=== PATIENT | male | born 1940 | race Caucasian/White ===

== ENCOUNTER → 2019-02-17 | Outpatient (CLI) | payer MEDICARE, SELFPAY | PROVIDERS: PCP Emergency Medicine; Visit Provider Emergency Medicine | DX: E78.2 Mixed hyperlipidemia (principal); Z12.5 Encounter for screening for malignant neoplasm of prostate | CPT/HCPCS: 36415; 80053; 80061; 84153; G0103 ==

== ENCOUNTER 2021-05-13 07:49 | Emergency (ER) | payer MEDICARE, SELFPAY ==
[2021-05-13] VITALS (37 sets, daily range): BP systolic 121–161; BP diastolic 87–133; PULSE 54–105; RESP 11–25; TEMP 36.9; O2SAT 83–99
--- NOTE | 2021-05-13 08:05 | ED.GIBLEED ---
HPI - GI Bleed General Chief complaint: GI Bleed Stated complaint: RECTAL BLEED Time Seen by Provider: 05/13/21 08:00 Source: patient Mode of arrival: ambulatory Limitations: no limitations History of Present Illness HPI Narrative: Patient is an 80-year-old male complaining of bright red blood in his stool, especially when he wipes, that started yesterday. Patient states that he had a similar episode 10 to 12 years ago and was diagnosed with hemorrhoids and ulcers . Patient denies any abdominal pain, nausea, vomiting hematemesis, hemoptysis, nausea, vomiting, diarrhea, fever or chills. Related Data Allergies Allergy/AdvReac Type Severity Reaction Status Date / Time No Known Allergies Allergy Verified 03/24/21 09:31 Review of Systems Review of Systems: All systems reviewed & are unremarkable except as noted in HPI and below Constitutional: Constitutional: Denies body ache(s), Denies chills, Denies excessive sweating, Denies fatigue, Denies fever(s), Denies headache(s), Denies lethargy, Denies malaise, Denies weakness and Denies weight loss Eyes: Eyes: Denies blurry vision, Denies change in vision and Denies loss of vision ENT: Denies dizziness, Denies ear discharge, Denies headache(s), Denies lip swelling, Denies epistaxis, Denies nasal congestion, Denies neck pain, Denies throat swelling and Denies tongue swelling Cardiovascular: Cardiovascular: Denies chest pain, Denies chest pain at rest, Denies chest pain with activity, Denies diaphoresis, Denies rapid heart rate, Denies edema, Denies irregular heart rhythm, Denies lightheadedness, Denies palpitations, Denies dyspnea and Denies dyspnea on exertion Respiratory: Respiratory: Denies chest congestion, Denies cough, Denies hemoptysis, Denies dyspnea and Denies dyspnea on exertion Gastrointestinal: Gastrointestinal: Denies abdominal pain, Denies melena, Denies diarrhea, Denies nausea, Denies vomiting and Denies hematemesis Musculoskeletal: Musculoskeletal: Denies abnormal gait, Denies deformity, Denies joint swelling, Denies limited range of motion, Denies neck pain and Denies numbness Neurologic: Denies Abnormal speech present, Denies abnormal gait, Denies confusion, Denies dizziness, Denies headache(s), Denies focal weakness, Denies loss of vision, Denies numbness, Denies Other visual disturbances, Denies Sensory deficit (Neuro) and Denies weakness Psychiatric: Psychiatric: Denies confusion, Denies depression, Denies auditory hallucinations, Denies homicidal ideation and Denies suicidal ideation Endocrine: Endocrine: Denies cold intolerance, Denies excessive sweating, Denies fatigue, Denies heat intolerance and Denies palpitations Hematologic/Lymphatic: Hematologic/Lymphatic: Denies easy bleeding and Denies easy bruising Allergic/Immunologic: Allergic/Immunologic: Denies lip swelling, Denies throat swelling and Denies tongue swelling PMFSH Past Medical History Medical History (Updated 05/13/21 @ 12:23 by Justus Donovan MD) DJD (degenerative joint disease) Elevated lipids Hypertension Insomnia Family History Family History Father Family history of liver disease Diabetes mellitus Family history of kidney disease Mother Family history of diabetes mellitus in first degree relative Diabetes mellitus Family history of renal failure Other Family history of gout Social History Social History Smoking status: Former smoker Smoking end date: 05/16/75 Alcohol intake: current Exam Const: General: cooperative, healthy appearing, comfortable, no acute distress, well developed, alert and awake; No confusion Orientation/consciousness: oriented to person, oriented to place, oriented to time, patient oriented x3 and No confusion Limitations: no limitations HENMT: Head: normal to inspection, normocephalic and atraumatic Ears: hearing grossly normal
[2021-05-13 08:18] LABS: Basophils Absolute Auto 0.1 K/mm3 (0.0-0.1); Basophils Percent Auto 0.7 % (0.2-1.2); Eosinophils Absolute Auto 0.1 K/mm3 (0-0.3); Eosinophils Percent Auto 0.8 % (0-4.4); Hematocrit 43.1 % (42.0-52.0); Hemoglobin 13.7 g/dL (14.0-18.0); Immature Granulocyte Absolute 0.02 K/mm3 (0.00-0.031); Immature Granulocyte Percent A 0.3 % (0-0.5); Lymphocytes Absolute Auto 1.22 K/mm3 (0.9-3.2); Lymphocytes Percent Auto 15.9 % (18.3-44.2); Mean Corpuscular HGB Conc 31.8 g/dl (32-36); Mean Corpuscular Hemoglobin 29.9 pg (26-34); Mean Corpuscular Volume 94.1 fl (80-100); Mean Platelet Volume 9.4 fl (7.4-10.4); Monocytes Absolute Auto 0.8 K/mm3 (0.1-0.6); Monocytes Percent Auto 10.4 % (2.6-8.5); Neutrophils Absolute Auto 5.5 K/mm3 (1.3-6.7); Neutrophils Percent Auto 71.9 % (45.5-73.1); Platelet Count Result 199 k/mm3 (150-375); Red Blood Count 4.58 M/mm3 (4.6-6.20); Red Cell Distribution Width 13.3 % (11.5-14.5); White Blood Count 7.7 K/mm3 (4.5-10.0)
[2021-05-13 08:31] LABS: Alanine Aminotransferase 23 U/L (4-50); Albumin Level 4.3 g/dL (3.5-5.1); Alkaline Phosphatase 73 U/L (38-126); Anion Gap 12 mmol/L (8-16); Aspartate Amino Transferase 29 U/L (17-59); Blood Urea Nitrogen 20 mg/dL (9-20); Calcium 8.8 mg/dL (8.4-10.2); Carbon Dioxide 25 mmol/L (22-30); Chloride 101 mmol/L (98-107); Estimated CRCL calculation 48 ml/min; Estimated Glomerular Filt Rate 39; Glucose 112 mg/dL (65-110); Potassium 4.4 mmol/L (3.4-5.0); Sodium 138 mmol/L (137-145)
[2021-05-13 08:41] LABS: Prothrombin Time 13.5 Seconds (11.1-14.7)
[2021-05-13 08:42] LABS: Partial Thromboplastin Time 31.5 SECONDS (22.3-36.8)
[2021-05-13] MEDS: LACTATED RINGERS 1,000 ML 999 ML IV CONT (09:48)
== END 2021-05-13 12:50 | disposition home or self-care (01) ==
PROVIDERS: Emergency Provider Emergency Medicine; PCP Emergency Medicine
DX: K92.1 Melena (principal); I10 Essential (primary) hypertension; Z87.891 Personal history of nicotine dependence
CPT/HCPCS: 36415; 80053; 85025; 85610; 85730; 96360; 96361; 99283; J7120

== ENCOUNTER 2021-05-18 00:35 | Observation (INO) | payer MEDICARE, SELFPAY ==
[2021-05-18] VITALS (42 sets, daily range): BP systolic 123–164; BP diastolic 83–123; PULSE 76–123; RESP 11–28; TEMP 36.4–36.7; O2SAT 90–100; BMI 45.3
--- NOTE | ~2021-05-18 | XR_ITS ---
EXAMINATION: XR chest 1V portable DATE: 05/18/2021 08:18 INDICATION: Shortness of breath TECHNIQUE: frontal view of the chest was obtained. COMPARISON: Chest radiograph dated 09/08/2011 FINDINGS: Unchanged mild elevation of the left hemidiaphragm. Pulmonary vascular congestion and increased bilat eral perihilar opacities. No pleural effusion or pneumothorax. The cardiomediastinal silhouette is wi thin normal limits for AP technique. 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 IMPRESSION: 1. Pulmonary vascular congestion and perihilar opacities which could represent mild pulmonary edema o r pneumonia. Reviewed, dictated and finalized at location B. CUTTER HELPER IMPRESSION: 1. Pulmonary vascular congestion and perihilar opacities which could represent mild pulmonary edema or pneumonia.
--- NOTE | ~2021-05-18 | CT_ITS ---
EXAMINATION: CTA chest PE abdomen pel DATE: 05/18/2021 09:04 INDICATION: Shortness of breath. Gastrointestinal hemorrhage. TECHNIQUE: Computed tomography angiography (CTA) of the chest was performed with 100 mL Omnipaque-350 intravenous contrast timed to evaluate the pulmonary arteries. Coronal maximum intensity projection 3D-reconstructions were created by the technologist. Computed tomography (CT) of the abdomen and pelv is was performed with intravenous contrast. Automated exposure control and iterative reconstruction t echnique were employed. The dose-length product was 2483.38 mGy-cm. COMPARISON: CT abdomen 06/12/2008, chest CT 09/29/2007 FINDINGS: CTA chest: There are small pleural effusions. There is atelectasis in the lungs with a dependent pred ominance. There is smooth septal thickening in the lungs, consistent with mild pulmonary edema. A alyssia cified right lung nodule and calcified right hilar lymph nodes are consistent with old granulomatous disease. Bilateral gynecomastia is noted. Cardiomegaly is noted. There are coronary artery calcificat ions. There are calcifications of the aortic valve. No pericardial effusion. There is no pulmonary em bolus. There is severe thoracic spondylosis. There is mild chronic anterior wedging of multiple verte bral bodies. CT abdomen and pelvis: The liver demonstrates a mildly nodular surface contour suspicious for cirrhos is. There is a 3.1 cm cyst in the liver. The gallbladder is distended and contains dependent material that may be sludge or stones. The spleen, pancreas, and adrenal glands are normal. There is cortical thinning of the kidneys. There are cysts in the kidneys measuring up to 2.8 cm on the left. There ar e 3 stones in left kidney measuring up to 7 mm. There is a left inguinal hernia containing fat. There is diverticulosis of the colon without evidence of diverticulitis. There are no dilated loops of bow el. The appendix is not visualized. There are no pathologically enlarged lymph nodes. There is fat st randing in the retroperitoneum in the pelvis, likely edema. There is severe lumbar spondylosis. IMPRESSION: 1. No pulmonary embolus. 2. Mild pulmonary edema. 3. Small pleural effusions. 4. Cardiomegaly. 5. Mildly nodular liver surface suspicious for cirrhosis. 6. Sludge versus stones in the gallbladder. Gallbladder distention may be secondary to fasting or acu te cholecystitis. Correlate with physical exam. Reviewed, dictated and finalized at location A. OGICAL AIDE IMPRESSION: 1. No pulmonary embolus. 2. Mild pulmonary edema. 3. Small pleural effusions. 4. Cardiomegaly. 5. Mildly nodular liver surface suspicious for cirrhosis. 6. Sludge versus stones in the gallbladder. Gallbladder distention may be secon christal to fasting or acute cholecystitis. Correlate with physical exam.
--- NOTE | 2021-05-18 07:28 | ED.SOB ---
HPI - SOB/Dyspnea General Chief Complaint: Shortness of Breath/Dyspnea Stated Complaint: SOB Time Seen by Provider: 05/18/21 07:19 Source: patient Mode of arrival: ambulatory Limitations: no limitations History of Present Illness HPI Narrative: The patient is an 80-year-old male with a history of hypertension, hematochezia, returning for evaluation of bright red blood per rectum with associated left chest discomfort and shortness of breath. Patient states that after being seen initially in the emergency department, his bright red blood per rectum resolved after use of Preparation H. Patient states he is not having any rectal pain, states that initially he felt like the bright red blood per rectum began after a episode of constipation, straining with bowel movement. Patient returned today because he experienced some shortness of breath as well as some left-sided chest pain this morning. At the time of my assessment, pain is resolved. Pain was dull, aching in nature without radiation to the back, shoulder, jaw, neck, abdomen or flank. Patient states he feels short of breath especially with any exertional activity. Patient denies any history of obstructive sleep apnea or COPD. He is a previous smoker with cessation over 45 years ago. He denies fever, chills, nausea or vomiting. He reports dry cough. Denies palpitations. He denies any abdominal pain. He denies any melanotic stool. Patient states he is vaccinated for Covid. Denies recent sick contacts. Patient with previous ER work-up per my chart review was negative, he was advised to follow-up with his primary care provider. Patient states he has tried to contact his PCP last week and was unable to. Related Data Allergies Allergy/AdvReac Type Severity Reaction Status Date / Time No Known Allergies Allergy Verified 05/18/21 00:44 Review of Systems Review of Systems: CONSTITUTIONAL: Denies fever, chills, or sweats. EYES: Denies visual changes, redness, or discharge. ENT: Denies rhinorrhea, congestion, sore throat, or otalgia. CARDIOVASCULAR: Denies current chest pain, palpitations, or edema. RESPIRATORY: Reports nonproductive cough and shortness of breath GASTROINTESTINAL: Denies abdominal pain, nausea, vomiting, or diarrhea. Reports bright red blood per rectum. GENITOURINARY: Denies dysuria or hematuria. SKIN: Denies rash or itching. MUSCULOSKELETAL: Denies back pain, joint pain, or myalgia. NEUROLOGIC: Denies headache, numbness, or weakness. [facility] Past Medical History Medical History (Updated 05/18/21 @ 10:56 by Destiny Dawkins MD) DJD (degenerative joint disease) Elevated lipids Hypertension Insomnia Family History Family History Father Family history of liver disease Diabetes mellitus Family history of kidney disease Mother Family history of diabetes mellitus in first degree relative Diabetes mellitus Family history of renal failure Other Family history of gout Social History Social History Smoking status: Former smoker Smoking end date: 05/16/75 Alcohol intake: current Exam Narrative: GENERAL: Awake, alert, conversant HEAD: Normocephalic, atraumatic. EYES: PERRLA and EOMI. ENT: Nares clear, no rhinorrhea or epistaxis. Mucous membranes moist. NECK: Supple. CHEST: No respiratory distress, breathing even and non labored, no wheezing, no crackles HEART: Tachycardic rate, sinus rhythm ABDOMEN:Non distended, non tender EXTREMITIES: Normal range of motion. Mild pitting edema 1+ to the mid shins SKIN: Warm, dry, no rash. NEURO:No focal deficits. Alert and oriented x3 Course Vital Signs Vital signs: Vital Signs Temperature 36.7 C 05/18/21 00:37 Pulse Rate 100 05/18/21 00:37 Respiratory Rate 17 05/18/21 00:37 Blood Pressure 145/99 H 05/18/21 00:37 Pulse Oximetry 100 05/18/21 00:37 Temperature 36.4 C L
--- NOTE | 2021-05-18 07:47 | ECG_ITS ---
Measurements Intervals [place] Rate: 102 P: [place]: 0 QRS: -26 QRSD: 105 T: 31 QT: 368 QTc: 481 Interpretive Statements ATRIAL FIBRILLATION WITH RAPID VENTRICULAR RESPONSE ABNORMAL ECG Electronically Signed On 05-18-2021 14:34:17 LINING FINISHER by Luca Kaufman D.O.
[2021-05-18 08:07] LABS: Basophils Absolute Auto 0.1 K/mm3 (0.0-0.1); Basophils Percent Auto 0.6 % (0.2-1.2); Eosinophils Absolute Auto 0.1 K/mm3 (0-0.3); Eosinophils Percent Auto 0.6 % (0-4.4); Hematocrit 41.8 % (42.0-52.0); Hemoglobin 13.2 g/dL (14.0-18.0); Immature Granulocyte Absolute 0.02 K/mm3 (0.00-0.031); Immature Granulocyte Percent A 0.2 % (0-0.5); Lymphocytes Absolute Auto 1.43 K/mm3 (0.9-3.2); Lymphocytes Percent Auto 17.1 % (18.3-44.2); Mean Corpuscular HGB Conc 31.6 g/dl (32-36); Mean Corpuscular Hemoglobin 29.9 pg (26-34); Mean Corpuscular Volume 94.8 fl (80-100); Monocytes Absolute Auto 1.1 K/mm3 (0.1-0.6); Monocytes Percent Auto 12.9 % (2.6-8.5); Neutrophils Absolute Auto 5.7 K/mm3 (1.3-6.7); Neutrophils Percent Auto 68.6 % (45.5-73.1); Platelet Count Result 203 k/mm3 (150-375); Red Blood Count 4.41 M/mm3 (4.6-6.20); Red Cell Distribution Width 13.7 % (11.5-14.5); White Blood Count 8.3 K/mm3 (4.5-10.0)
[2021-05-18 08:23] LABS: Alanine Aminotransferase 27 U/L (4-50); Albumin Level 4.4 g/dL (3.5-5.1); Alkaline Phosphatase 78 U/L (38-126); Anion Gap 8 mmol/L (8-16); Aspartate Amino Transferase 30 U/L (17-59); Bilirubin,Total 0.9 mg/dL (0.2-1.3); Blood Urea Nitrogen 17 mg/dL (9-20); Carbon Dioxide 28 mmol/L (22-30); Chloride 103 mmol/L (98-107); Estimated Glomerular Filt Rate 49; Glucose 101 mg/dL (65-110); Potassium 4.5 mmol/L (3.4-5.0); Sodium 139 mmol/L (137-145)
[2021-05-18] MEDS: ALBUTEROL SULFATE NEB 2.5 MG/0.5 ML INH 5 MG INHALATION (08:28)
[2021-05-18] MEDS: IPRATROPIUM BR 0.02% INH SOLN 0.5 MG/2.5 ML VIAL INHALATION (08:28)
[2021-05-18 08:44] LABS: D Dimer 1.13 ug/mL (<0.48)
[2021-05-18 08:53] LABS: NT Pro B Type Natriuretic Pept 2390 pg/mL (5-100)
[2021-05-18 09:02] LABS: Troponin I 0.052 ng/mL (0.000-0.034)
[2021-05-18] MEDS: ASPIRIN 81 MG CHEWABLE TABLET 324 MG PO (09:08)
[2021-05-18] MEDS: FUROSEMIDE INJ 40 MG/4 ML VIAL IV PUSH (09:49)
[2021-05-18 10:54] LABS: EDCOVIDSCREEN Negative (Negative)
[2021-05-18 11:23] LABS: Alanine Aminotransferase 28 U/L (4-50); Albumin Level 4.4 g/dL (3.5-5.1); Alkaline Phosphatase 79 U/L (38-126); Anion Gap 11 mmol/L (8-16); Aspartate Amino Transferase 30 U/L (17-59); Bilirubin,Total 0.9 mg/dL (0.2-1.3); Blood Urea Nitrogen 17 mg/dL (9-20); Calcium 9.1 mg/dL (8.4-10.2); Carbon Dioxide 26 mmol/L (22-30); Chloride 103 mmol/L (98-107); Cholesterol 166 mg/dL (0-200); Estimated Glomerular Filt Rate 49; Glucose 98 mg/dL (65-110); HDL Direct 40 mg/dL; Potassium 4.5 mmol/L (3.4-5.0); Sodium 140 mmol/L (137-145); Triglycerides 91 mg/dL (<150)
[2021-05-18 11:26] LABS: Troponin I 0.054 ng/mL (0.000-0.034)
[2021-05-18 11:34] LABS: LDL Cholesterol Direct 96 mg/dL
--- NOTE | 2021-05-18 11:44 | PM.IMHP ---
H&P: HPI History of Present Illness Date/Time: 05/18/21 11:44 Chief Complaint: Shortness of breath Narrative: 80 years old male with history of hypertension was admitted with complaint of having increased shortness of breath going on for the last 2 weeks. Patient also complained lower extremity edema and dyspnea on exertion. Patient denies any orthopnea or PND. Patient denies any chest pain. According to the patient he stop taking his Lasix 2 weeks ago. No abdominal pain, nausea, no vomiting, mood stable. No recent COVID exposure. No fever. Review of Systems Review of Systems: All systems reviewed & are unremarkable except as noted in HPI and below (the history and physical examination.) PMFSH Past Medical History Medical History DJD (degenerative joint disease) Elevated lipids Hypertension Insomnia Family History Family History Father Family history of liver disease Diabetes mellitus Family history of kidney disease Mother Family history of diabetes mellitus in first degree relative Diabetes mellitus Family history of renal failure Other Family history of gout Social History Social History Smoking status: Former smoker Smoking end date: 05/16/75 Alcohol intake: current Meds Home Medications and Allergies Home Medications Medication Instructions Recorded Confirmed Type tramadol 50 mg tablet 50 mg PO Q6H PRN #90 tablet 03/06/21 03/24/21 Rx allopurinol 300 mg tablet See Rx Instructions PO DAILY #90 03/31/21 Rx tablet temazepam 15 mg capsule 15 mg PO .hs PRN #30 cap 03/31/21 03/31/21 Rx amlodipine 5 mg tablet 5 mg PO DAILY #90 tablet 04/06/21 Rx lisinopril 40 mg tablet 40 mg PO DAILY #90 tablet 04/06/21 Rx Allergies Allergy/AdvReac Type Severity Reaction Status Date / Time No Known Allergies Allergy Verified 05/18/21 00:44 Vital Signs Vital Signs - 24 hr 05/18/21 00:37 05/18/21 03:40 05/18/21 07:05 Temperature 36.7 C 36.6 C 36.4 C L Pulse Rate 100 92 89 Respiratory Rate 17 20 19 Blood Pressure 145/99 H 155/101 H 147/98 H Pulse Oximetry 100 95 97 05/18/21 07:37 05/18/21 08:29 05/18/21 08:37 Temperature Pulse Rate 96 107 H 98 Respiratory Rate 20 28 H 16 Blood Pressure Pulse Oximetry 94 05/18/21 09:51 Temperature Pulse Rate 106 H Respiratory Rate 20 Blood Pressure 148/110 H Pulse Oximetry 93 Exam Narrative: GENERAL: Awake, alert, conversant HEAD: Normocephalic, atraumatic. EYES: PERRLA and EOMI. ENT: Nares clear, no rhinorrhea or epistaxis. Mucous membranes moist. NECK: Supple. CHEST: No respiratory distress, breathing even and non labored, no wheezing, no crackles HEART: Tachycardic rate, sinus rhythm ABDOMEN:Non distended, non tender EXTREMITIES: Normal range of motion. Mild pitting edema 1+ to the mid shins SKIN: Warm, dry, no rash. NEURO:No focal deficits. Alert and oriented x3 Const: General: cooperative and no acute distress Orientation/consciousness: oriented to person, oriented to place, oriented to time and patient oriented x3 H&P: Results Labs Labs: Short CBC 05/18/21 Range/Units 08:00 WBC 8.3 (4.5-10.0) K/mm3 Hgb 13.2 L (14.0-18.0) g/dL Hct 41.8 L (42.0-52.0) % Plt Count 203 (150-375) k/mm3 BMP 05/18/21 05/18/21 08:00 08:23 Sodium 139 140 Potassium 4.5 4.5 Chloride 103 103 Carbon Dioxide 28 26 BUN 17 17 Creatinine 1.40 H 1.40 H Glucose 101 98 Calcium 9.0 9.1 Cardiac Enzymes 05/18/21 05/18/21 Range/Units 08:23 10:52 Troponin I 0.052 H* 0.054 H* (0.000-0.034) ng/mL Liver Function 05/18/21 05/18/21 Range/Units 08:00 08:23 Total Bilirubin 0.9 0.9 (0.2-1.3) mg/dL AST 30 30 (17-59) U/L ALT 27 28 (4-50) U/L Alkaline Phosphatase 78 79 (38-126) U/L Albumin 4.4 4.4 (3.5-5.1) g/dL
[2021-05-18] MEDS: ENOXAPARIN 120 MG/0.8 ML SYRINGE SUB-Q (14:14)
--- NOTE | 2021-05-18 15:04 | PC.NURSE ---
SPOKE TO CAROLANN GRACE WITH CARDIOLOGY- WOULD LIKE CONSULT TO BE WITH DR. CAPONE
--- NOTE | 2021-05-18 16:53 | PM.CNCAR ---
Assessment and Plan Assessment and plan (1) Dyspnea due to congestive heart failure: Code(s): I50.9 - Heart failure, unspecified Status: Acute Assessment and Plan: Probably diastolic heart failure with new onset atrial fibrillation. Obtain echo. Diurese with Lasix 40 mg IV daily. Start Metoprolol 25 mg BID for improved rate control. (2) Elevated troponin: Code(s): R77.8 - Other specified abnormalities of plasma proteins Status: Acute Assessment and Plan: Probably due to volume overload from diastolic heart failure. (3) Hypertension: Code(s): I10 - Essential (primary) hypertension Status: Acute (4) Elevated lipids: Code(s): E78.5 - Hyperlipidemia, unspecified Status: Acute Assessment and Plan: Check Lipid panel. (5) Obesity: Code(s): E66.9 - Obesity, unspecified Status: Acute (6) Atrial fibrillation: Code(s): I48.91 - Unspecified atrial fibrillation Status: Acute Assessment and Plan: [id number] 3. Started on Lovenox 120 mg SQ Q12 hours. Will change to a NOAC tomorrow if echo is OK and troponin peaks. History of Present Illness History of Present Illness Consult date/time: 05/18/21 16:53 80 yr old man admitted through ER for sob. He has a history of hypertension, dyslipidemia. He last followed up with me on 03/25/18. Reports that for last 4 days he noted more swelling of legs and sob and orthopnea. He reports he saw his PCP recently and Lasix was stopped. In ER it is noted he is in atrial fibrillation with HR 95 bpm. He notes intermittent BRPR after having a bowel movement and thinks he has hemorrhoids. Denies chest pain, PND, palpitations, dizziness. EKG shows atrial fib at 101 bpm. CXR shows pulm congestions. CT chest shows no pulm embolism. Cr 1.4/GFR 49, Trop .052 then .054. NTproBNP 2,390. Hb 13.2. Reason For Visit: Acute CHF exacerbation/elevated troponin Review of Systems Review of Systems: All systems reviewed & are unremarkable except as noted in HPI and below Constitutional: Constitutional: Reports as per HPI, Denies chills and Denies fever(s) Cardiovascular: Cardiovascular: Reports as per HPI, Denies chest pain, Denies irregular heart rhythm, Reports leg edema and Denies lightheadedness Respiratory: Respiratory: Reports as per HPI and Reports dyspnea Gastrointestinal: Gastrointestinal: Reports as per HPI and Denies abdominal pain Genitourinary: Genitourinary: Reports as per HPI and Denies dysuria Musculoskeletal: Musculoskeletal: Reports as per HPI Neurologic: Reports as per HPI, Denies dizziness and Denies syncope [facility] Past Medical History Medical History (Updated 05/18/21 @ 17:03 by Luca Kaufman DO) DJD (degenerative joint disease) Elevated lipids Hypertension Insomnia Family History Family History Father Family history of liver disease Diabetes mellitus Family history of kidney disease Mother Family history of diabetes mellitus in first degree relative Diabetes mellitus Family history of renal failure Other Family history of gout Social History Social History Smoking packs per day: 0.5 Smoking cigarettes per day: 10.0 Years smoked: 18 Smoking pack-years: 9.00 Smoking status: Former smoker Tobacco type: cigarettes Second hand tobacco smoke exposure: Yes Smoking end date: 05/16/75 Alcohol intake: current Substance use: never Substance use type: does not use Other substance usage details: alcohol - very rare Spiritual care concerns: No Meds Home Medications and Allergies Home Medications Medication Instructions Recorded Confirmed Type tramadol 50 mg tablet 50 mg PO Q6H PRN #90 tablet 03/06/21 05/18/21 Rx temazepam 15 mg capsule 15 mg PO .hs PRN #30 cap 03/31/21 05/18/21 Rx amlodipine 5 mg tablet 5 mg PO DAILY #90 tablet 04/06/21
--- NOTE | 2021-05-18 18:31 | PC.NURSE ---
Pt given lunch and dinner tray and at 90% of his meals.
[2021-05-18 21:22] LABS: SARS-CoV-2 RNA PCR Negative
[2021-05-18] MEDS: METOPROLOL TARTRATE 25 MG TABLET PO (22:22)
[2021-05-18] MEDS: TEMAZEPAM (*CRX) 15 MG CAPSULE PO (22:25)
[2021-05-19] VITALS (20 sets, daily range): BP systolic 102–153; BP diastolic 60–103; PULSE 66–88; RESP 18–24; TEMP 36.5–36.8; O2SAT 91–99; BMI 41.1
--- NOTE | 2021-05-19 01:20 | ADMGEN ---
This patient, Arthur Cantor Jr., was admitted to IMU Room 202-01 at 0105 on 05/19/21. Patient/family oriented to hospital policies and general routines including ID bracelet, bed and alarms, visiting hours, pain management, procedures, bathroom and other care routines, personal items, smoking policy, room service/diet, and visiting hours. Information on how to activate the Rapid Response Team has been discussed. Patient/Family are encouraged to report perceived risks to care and to ask questions if they do not understand what they are told or what they should do.
[2021-05-19] MEDS: ENOXAPARIN 120 MG/0.8 ML SYRINGE SUB-Q ×2 (03:24→13:28)
[2021-05-19 05:00] LABS: Cholesterol 156 mg/dL (0-200); HDL Direct 37 mg/dL; Triglycerides 77 mg/dL (<150)
[2021-05-19 05:08] LABS: Alanine Aminotransferase 27 U/L (4-50); Albumin Level 4.1 g/dL (3.5-5.1); Alkaline Phosphatase 65 U/L (38-126); Anion Gap 5 mmol/L (8-16); Aspartate Amino Transferase 34 U/L (17-59); Blood Urea Nitrogen 20 mg/dL (9-20); Calcium 8.7 mg/dL (8.4-10.2); Carbon Dioxide 31 mmol/L (22-30); Chloride 101 mmol/L (98-107); Estimated CRCL calculation 56 ml/min; Estimated Glomerular Filt Rate 49; Glucose 93 mg/dL (65-110); Potassium 5.1 mmol/L (3.4-5.0); Sodium 137 mmol/L (137-145)
[2021-05-19 05:11] LABS: LDL Cholesterol Direct 94 mg/dL
--- NOTE | 2021-05-19 06:00 | ECHO_ITS ---
Patient Info Name: Arthur Cantor Age: 80 years : 1940 Gender: Male Ht: 73 in Wt: 368 lbs BSA: 3.02 m2 HR: 88 bpm BP: 140 / 60 mmHg Heart Rhythm: Atrial Fibrillation Technical Quality: Fair Exam Date: 05/19/2021 10:24 AM Exam Location: [facility] Patient Status: Outpatient Admit Date: 05/18/2021 Staff Ordering Physician: Destiny Dawkins MD [employer]: Kalee Canada RDCS Attending Provider: Dahiana Lott PA-C Referring Physician: Juancho SAHA; Exam Type: CA echo doppler color flow Study Info Indications - chf, exacerbation Complete two-dimensional, color flow and Doppler transthoracic echocardiogram is performed. Summary 1. Complete two-dimensional, color flow and Doppler transthoracic echocardiogram is performed. 2. Left ventricular chamber dimension is normal. 3. Left ventricular systolic function is preserved, estimated at 50-55%. 4. There is mildly increased left ventricular wall thickness. 5. Left ventricular septal wall motion is abnormal with septal motion related to bundle branch block. 6. The left ventricular diastolic function is abnormal. 7. e' .09 is abnormal suggests diastolic dysfunction. 8. Atrial fibrillation. 9. Right ventricular systolic function is mildly reduced and with abnormal TAPSE 1.4 cm. 10. Left atrial chamber dimension is moderately enlarged. 11. Right atrial chamber dimension is moderately enlarged. 12. There is severe aortic valve sclerosis. 13. There is moderate aortic valve stenosis with a peak velocity of 244 cm/s, mean gradient of 14 mmHg, and aortic valve area of 1.3 cm2. 14. There is trace mitral valve regurgitation. 15. No pulmonary hypertension, estimated pulmonary arterial systolic pressure is 30 mmHg. 16. Dilated inferior vena cava with >50% collapse upon inspiration consistent with elevated right atrial pressure, 10 mmHg. Left Ventricle e' .09 is abnormal suggests diastolic dysfunction. Atrial fibrillation. Left ventricular systolic function is preserved, estimated at 50-55%. Left ventricular chamber dimension is normal. There is mildly increased left ventricular wall thickness. Left ventricular septal wall motion is abnormal with septal motion related to bundle branch block. The left ventricular diastolic function is abnormal. Right Ventricle Right ventricular systolic function is mildly reduced and with abnormal TAPSE 1.4 cm. Right ventricular chamber dimension is normal. Left Atria Left atrial chamber dimension is moderately enlarged. Right Atria Right atrial chamber dimension is moderately enlarged. Aortic Valve The aortic valve is trileaflet. There is severe aortic valve sclerosis. There is moderate aortic valve stenosis with a peak velocity of 244 cm/s, mean gradient of 14 mmHg, and aortic valve area of 1.3 cm2. There is no aortic valve regurgitation. Pulmonic Valve There is no pulmonic regurgitation. Mitral Valve There is no mitral valve stenosis. There is trace mitral valve regurgitation. Tricuspid Valve There is no tricuspid valve regurgitation. No pulmonary hypertension, estimated pulmonary arterial systolic pressure is 30 mmHg. Pericardium/Pleural There is no pericardial effusion. Inferior Vena Cava Dilated inferior vena cava with >50% collapse upon inspiration consistent with elevated right atrial pressure, 10 mmHg. Aorta The aortic root size at the sinus of Valsalva is normal. Left Ventricular Outflow Tract
--- NOTE | 2021-05-19 06:38 | ECG_ITS ---
Measurements Intervals [place] Rate: 83 P: [place]: 0 QRS: -26 QRSD: 108 T: 42 QT: 416 QTc: 489 Interpretive Statements ATRIAL FIBRILLATION ABNORMAL ECG Electronically Signed On 05-19-2021 9:34:15 COMMISSIONED SALES ASSOCIATE by Luca Kaufman D.O.
[2021-05-19 07:09] LABS: Troponin I 0.052 ng/mL (0.000-0.034)
--- NOTE | 2021-05-19 07:53 | PM.PNCARD ---
Progress Note: A&P Assessment and Plan (1) Dyspnea due to congestive heart failure: Code(s): I50.9 - Heart failure, unspecified Status: Acute Assessment and Plan: Probably diastolic heart failure with new onset atrial fibrillation. Obtain echo. Diurese with Lasix 40 mg IV daily. Increase Metoprolol 50 mg BID for improved rate control. Stop KCl as potassium is 5.1 today. (2) Elevated troponin: Code(s): R77.8 - Other specified abnormalities of plasma proteins Status: Acute Assessment and Plan: Probably due to volume overload from diastolic heart failure. Troponin peaked at 0.06. (3) Hypertension: Code(s): I10 - Essential (primary) hypertension Status: Acute Assessment and Plan: Improving. (4) Elevated lipids: Code(s): E78.5 - Hyperlipidemia, unspecified Status: Acute Assessment and Plan: Start Pravastatin 10 mg daily. (5) Obesity: Code(s): E66.9 - Obesity, unspecified Status: Acute (6) Atrial fibrillation: Code(s): I48.91 - Unspecified atrial fibrillation Status: Acute Assessment and Plan: [id number] 3. On Lovenox 120 mg SQ Q12 hours. Will change to a NOAC later today if echo is OK. Subjective Date/time seen: 05/19/21 07:53 Reports breathing is better today compared to yesterday. No chest pains. Exam Const: General: cooperative, healthy appearing and comfortable Nutritional Appearance: obese Resp: Auscultation: clear to auscultation bilaterally, no crackles, no rales, no rhonchi and no wheezes Cardio: Jugular venous distension: no JVD Rate: regular rate Rhythm: abnormal rhythm Heart sounds: no murmurs Peripheral pulses: dorsalis pedis present GI: GI Palp: No abdominal tenderness and Yes Soft to palpation Neuro: General: oriented to person, oriented to place and oriented to time Extrem: Right lower extremity: edema Left lower extremity: edema Other: Mild pedal and lower leg edema bilaterally. Objective Data Vital Signs Vital Signs: Vital Signs - 24 hr 05/18/21 08:29 05/18/21 08:37 05/18/21 09:51 Temperature Pulse Rate 107 H 98 106 H Respiratory Rate 28 H 16 20 Blood Pressure 148/110 H Pulse Oximetry 93 05/18/21 10:46 05/18/21 12:01 05/18/21 12:16 Temperature Pulse Rate 116 H 91 91 Respiratory Rate 23 H 24 H 22 H Blood Pressure 143/103 H 142/106 H 146/108 H Pulse Oximetry 91 92 92 05/18/21 12:31 05/18/21 12:45 05/18/21 13:17 Temperature Pulse Rate 93 Respiratory Rate 25 H 11 L Blood Pressure 140/99 H 123/83 Pulse Oximetry 90 94 93 05/18/21 13:31 05/18/21 14:31 05/18/21 15:18 Temperature Pulse Rate 92 111 H Respiratory Rate 21 H 20 20 Blood Pressure 140/115 H 140/123 H 147/103 H Pulse Oximetry 93 92 94 05/18/21 15:46 05/18/21 16:42 05/18/21 16:46 Temperature Pulse Rate 93 95 96 Respiratory Rate 25 H 20 28 H Blood Pressure 125/99 H 164/95 H 143/117 H Pulse Oximetry 95 96 95 05/18/21 17:01 05/18/21 19:19 05/18/21 19:55 Temperature Pulse Rate 93 93 103 H Respiratory Rate 23 H 22 H 24 H Blood Pressure 158/116 H 141/106 H Pulse Oximetry 93 96 95 05/18/21 20:18 05/18/21 20:43 05/18/21 20:45 Temperature Pulse Rate 99 106 H 123 H Respiratory Rate 26 H 27 H 22 H Blood Pressure Pulse Oximetry 93 94 95 05/18/21 20:46 05/18/21 20:47 05/18/21 21:09 Temperature Pulse Rate 116 H 103 H 95 Respiratory Rate 24 H 22 H Blood Pressure 153/107 H Pulse Oximetry 94 05/18/21 21:21 05/18/21 21:30 05/18/21 21:45 Temperature Pulse Rate 86 113 H 96 Respiratory Rate 22 H 25 H 25 H Blood Pressure Pulse Oximetry 94 91 05/18/21 22:00 05/18/21 22:15 05/18/21 22:22 Temperature Pulse Rate 103 H 101 H 105 H Respiratory Rate 18 15 Blood Pressure Pulse Oximetry 97 94 05/18/21 22:23 05/18/21 22:30 05/18/21 22:45 Temperature Pulse Rate 105 H 98 95 Respiratory Rate 20 25 H 27 H Blood Pressure
[2021-05-19] MEDS: ATORVASTATIN 20 MG TABLET PO (08:22)
[2021-05-19] MEDS: amLODIPine BESYLATE 5 MG TABLET PO (08:22)
[2021-05-19] MEDS: lisinopriL 10 MG TABLET PO (08:22)
[2021-05-19] MEDS: FUROSEMIDE INJ 40 MG/4 ML VIAL IV PUSH (08:22)
[2021-05-19] MEDS: ASPIRIN 81 MG CHEWABLE TABLET PO (08:22)
[2021-05-19] MEDS: METOPROLOL TARTRATE 50 MG TAB PO ×2 (08:23→21:06)
--- NOTE | 2021-05-19 10:01 | P.PNIM_ITS ---
Progress Note: A&P Assessment and Plan (1) Dyspnea due to congestive heart failure: Code(s): I50.9 - Heart failure, unspecified Status: Acute Assessment and Plan: Patient presented with SOB and increased lower extremity swelling. CXR with findings consistent with pulmonary edema. BNP 2400 * appreciate cardiology consultation * awaiting echocardiogram * continue with IV Lasix 40 mg daily * monitor intake and output. daily weights. Heart healthy diet. * he is requiring 2 L supplemental oxygen per nasal cannula. No episodes of hypoxia documented. Continue O2 as needed and wean as tolerated to goal O2 sats 92% or above * continue lisinopril and metoprolol (2) Atrial fibrillation: Code(s): I48.91 - Unspecified atrial fibrillation Status: Acute Assessment and Plan: New onset. EKG on presentation showed atrial fibrillation with heart rate 101. * appreciate cardiology consultation * continue metoprolol tartrate 50 mg b.i.d. * continue therapeutic Lovenox injections q.12 hours * plan to transition to NOAC this evening. Will ask care coordination to agustin Silva * CHADS2-VASC score is 3. HASBLED score is 1. Discussed risk of stroke vs risk of bleeding with patient who is agreeable to proceed with anticoagulation. * patient remains in atrial fibrillation with rate well controlled at this time (3) Elevated troponin: Code(s): R77.8 - Other specified abnormalities of plasma proteins Status: Acute Assessment and Plan: Mildly elevated with flat trend. Peak at 0.06. * appreciate cardiology consultation * likely related to volume overload * echocardiogram is pending * no further evaluation required at this time (4) CKD (chronic kidney disease), stage III: Code(s): N18.30 - Chronic kidney disease, stage 3 unspecified Status: Acute Assessment and Plan: renal function appears to be consistent with baseline * monitor kidney function, renally dose medications, avoid nephrotoxic agents (5) Hypertension: Code(s): I10 - Essential (primary) hypertension Status: Acute Assessment and Plan: Blood pressure elevated initially, likely due to volume overload. Improving with diuresis. Last BP 134/80 * continue IV Lasix * continue lisinopril, amlodipine, metoprolol * monitor BP trends (6) Elevated lipids: Code(s): E78.5 - Hyperlipidemia, unspecified Status: Acute Assessment and Plan: lipid panel reviewed * started atorvastatin 20 mg daily per Cardiology recommendations. Continue. (7) Abnormal CT of the abdomen: Code(s): R93.5 - Abnormal findings on diagnostic imaging of other abdominal regions, including retroperitoneum Status: Acute Assessment and Plan: CTA chest/abdomen/pelvis with the following incidental findings: * mildly nodular liver surface suspicious for cirrhosis - LFTs, bilirubin, platelets, INR are within normal limits. * sludge vs stone in the gallbladder with gallbladder distention which may be related to fasting state - Patient is asymptomatic and tolerating diet * discussed with patient. At this time will plan for outpatient follow-up. would proceed with inpatient RUQ US if patient were to develop symptoms. (8) Bright red blood per rectum: Code(s): K62.5 - Hemorrhage of anus and rectum Status: Acute Assessment and Plan: Patient reported one episode of brbpr after a bowel movement. * likely due to hemorrhoids which patient reports history of *
--- NOTE | 2021-05-19 10:01 | PM.IMPN ---
Progress Note: A&P Assessment and Plan (1) Dyspnea due to congestive heart failure: Code(s): I50.9 - Heart failure, unspecified Status: Acute Assessment and Plan: Patient presented with SOB and increased lower extremity swelling. CXR with findings consistent with pulmonary edema. BNP 2400 appreciate cardiology consultation awaiting echocardiogram continue with IV Lasix 40 mg daily monitor intake and output. daily weights. Heart healthy diet. he is requiring 2 L supplemental oxygen per nasal cannula. No episodes of hypoxia documented. Continue O2 as needed and wean as tolerated to goal O2 sats 92% or above continue lisinopril and metoprolol (2) Atrial fibrillation: Code(s): I48.91 - Unspecified atrial fibrillation Status: Acute Assessment and Plan: New onset. EKG on presentation showed atrial fibrillation with heart rate 101. appreciate cardiology consultation continue metoprolol tartrate 50 mg b.i.d. continue therapeutic Lovenox injections q.12 hours plan to transition to NOAC this evening. Will ask care coordination to agustin Silva CHADS2-VASC score is 3. HASBLED score is 1. Discussed risk of stroke vs risk of bleeding with patient who is agreeable to proceed with anticoagulation. patient remains in atrial fibrillation with rate well controlled at this time (3) Elevated troponin: Code(s): R77.8 - Other specified abnormalities of plasma proteins Status: Acute Assessment and Plan: Mildly elevated with flat trend. Peak at 0.06. appreciate cardiology consultation likely related to volume overload echocardiogram is pending no further evaluation required at this time (4) CKD (chronic kidney disease), stage III: Code(s): N18.30 - Chronic kidney disease, stage 3 unspecified Status: Acute Assessment and Plan: renal function appears to be consistent with baseline monitor kidney function, renally dose medications, avoid nephrotoxic agents (5) Hypertension: Code(s): I10 - Essential (primary) hypertension Status: Acute Assessment and Plan: Blood pressure elevated initially, likely due to volume overload. Improving with diuresis. Last BP 134/80 continue IV Lasix continue lisinopril, amlodipine, metoprolol monitor BP trends (6) Elevated lipids: Code(s): E78.5 - Hyperlipidemia, unspecified Status: Acute Assessment and Plan: lipid panel reviewed started atorvastatin 20 mg daily per Cardiology recommendations. Continue. (7) Abnormal CT of the abdomen: Code(s): R93.5 - Abnormal findings on diagnostic imaging of other abdominal regions, including retroperitoneum Status: Acute Assessment and Plan: CTA chest/abdomen/pelvis with the following incidental findings: mildly nodular liver surface suspicious for cirrhosis - LFTs, bilirubin, platelets, INR are within normal limits. sludge vs stone in the gallbladder with gallbladder distention which may be related to fasting state - Patient is asymptomatic and tolerating diet discussed with patient. At this time will plan for outpatient follow-up. would proceed with inpatient RUQ US if patient were to develop symptoms. (8) Bright red blood per rectum: Code(s): K62.5 - Hemorrhage of anus and rectum Status: Acute Assessment and Plan: Patient reported one episode of brbpr after a bowel movement. likely due to hemorrhoids which patient reports history of no further episodes of bleeding H&H remain stable continue to monitor closely with initiation of anticoagulation Additional Plan Potassium 5.1 today. Potassium supplementation discontinued. Repeat BMP in AM Subjective Date/time seen: 05/19/21 10:01 Interval history: Date of service: 05/19/2021 Arthur Cantor is an 80 year old male with a history of hypertension who is seen in follow-up for new onset atrial
[2021-05-19] MEDS: TEMAZEPAM (*CRX) 15 MG CAPSULE PO (21:06)
[2021-05-20] VITALS (7 sets, daily range): BP systolic 124–151; BP diastolic 82–86; PULSE 62–93; RESP 20; TEMP 36.5–36.6; O2SAT 95–97
[2021-05-20 05:09] LABS: Hematocrit 42.9 % (42.0-52.0); Hemoglobin 13.1 g/dL (14.0-18.0); Mean Corpuscular HGB Conc 30.5 g/dl (32-36); Mean Corpuscular Hemoglobin 29.4 pg (26-34); Mean Corpuscular Volume 96.4 fl (80-100); Mean Platelet Volume 10.2 fl (7.4-10.4); Platelet Count Result 210 k/mm3 (150-375); Red Blood Count 4.45 M/mm3 (4.6-6.20); Red Cell Distribution Width 13.4 % (11.5-14.5); White Blood Count 8.8 K/mm3 (4.5-10.0)
[2021-05-20 05:26] LABS: Anion Gap 8 mmol/L (8-16); Blood Urea Nitrogen 26 mg/dL (9-20); Calcium 8.9 mg/dL (8.4-10.2); Carbon Dioxide 32 mmol/L (22-30); Chloride 98 mmol/L (98-107); Estimated CRCL calculation 46 ml/min; Estimated Glomerular Filt Rate 39; Glucose 93 mg/dL (65-110); Potassium 4.5 mmol/L (3.4-5.0); Sodium 138 mmol/L (137-145)
--- NOTE | 2021-05-20 07:54 | PM.PNCARD ---
Progress Note: A&P Assessment and Plan (1) Dyspnea due to congestive heart failure: Code(s): I50.9 - Heart failure, unspecified Status: Acute Assessment and Plan: Probably diastolic heart failure with new onset atrial fibrillation. Echo shows EF 50-55%, diastolic dysfunction, RV hypokinetic, mod biatrial enlargement, mod (JEET 1.3 cm2). Diuresed with Lasix 40 mg IV daily. Creatine trending up to 1.7. Stop Lasix IV and start Lasix 40 mg PO daily. May d/c home from cardiology standpoint and f/u with me in 1-2 weeks. (2) Elevated troponin: Code(s): R77.8 - Other specified abnormalities of plasma proteins Status: Acute Assessment and Plan: Probably due to volume overload from diastolic heart failure. Troponin peaked at 0.06. (3) Hypertension: Code(s): I10 - Essential (primary) hypertension Status: Acute Assessment and Plan: Stable. (4) Elevated lipids: Code(s): E78.5 - Hyperlipidemia, unspecified Status: Acute Assessment and Plan: On Pravastatin 10 mg daily. (5) Obesity: Code(s): E66.9 - Obesity, unspecified Status: Acute (6) Atrial fibrillation: Code(s): I48.91 - Unspecified atrial fibrillation Status: Acute Assessment and Plan: [id number] 3. Was on Lovenox 120 mg SQ Q12 hours. Started on Eliquis 5 mg BID. Rate controlled on Metoprolol 50 mg BID. (7) Aortic stenosis, moderate: Code(s): I35.0 - Nonrheumatic aortic (valve) stenosis Status: Acute Assessment and Plan: Stable. (8) Hypersomnia: Code(s): G47.10 - Hypersomnia, unspecified Status: Acute Assessment and Plan: Will need outpatient sleep study. Subjective Date/time seen: 05/20/21 07:54 Reports last night feeling sob while trying to sleep. He does report waking up every hour normally and tosses and turns. Denies chest pain. Exam Const: General: cooperative, healthy appearing and comfortable Nutritional Appearance: obese Resp: Auscultation: clear to auscultation bilaterally, no crackles, no rales, no rhonchi and no wheezes Cardio: Jugular venous distension: no JVD Rate: regular rate Rhythm: abnormal rhythm Heart sounds: no murmurs Peripheral pulses: dorsalis pedis present GI: GI Palp: No abdominal tenderness and Yes Soft to palpation Neuro: General: oriented to person, oriented to place and oriented to time Extrem: Right lower extremity: edema Left lower extremity: edema Other: Trace pedal and lower leg edema bilaterally. Objective Data Vital Signs Vital Signs: Vital Signs - 24 hr 05/19/21 08:00 05/19/21 08:23 05/19/21 08:27 Temperature 98.2 F Pulse Rate 83 73 73 Respiratory Rate 18 20 Blood Pressure 134/80 Pulse Oximetry 93 93 05/19/21 10:00 05/19/21 11:35 05/19/21 12:00 Temperature 98.1 F Pulse Rate 66 76 Respiratory Rate 18 Blood Pressure 132/97 H Pulse Oximetry 94 96 05/19/21 14:00 05/19/21 15:24 05/19/21 16:00 Temperature 98 F Pulse Rate 73 73 Respiratory Rate 20 Blood Pressure 119/90 Pulse Oximetry 95 96 05/19/21 18:00 05/19/21 20:00 05/19/21 22:00 Temperature 98.0 F Pulse Rate 75 76 74 Respiratory Rate 20 Blood Pressure 102/72 Pulse Oximetry 97 05/19/21 23:14 05/20/21 00:00 05/20/21 02:00 Temperature 97.7 F Pulse Rate 81 64 62 Respiratory Rate 20 Blood Pressure 113/76 Pulse Oximetry 97 97 05/20/21 04:00 05/20/21 06:00 Temperature 97.7 F Pulse Rate 62 74 Respiratory Rate 20 Blood Pressure 124/82 Pulse Oximetry 97 Intake/Output Intake/Output: Intake & Output 05/17/21 05/18/21 05/19/21 05/20/21 23:59 23:59 23:59 23:59 Intake Total 1200 400 Balance 1200 400 Meds/Results Medications: Active Medications Generic Name Dose Route Start Last Admin Trade Name Freq PRN Reason Stop Dose Admin Acetaminophen 650 mg 05/18/21 10:38 Acetaminophen 325 Mg Tablet PO Q4H PRN Mild Pain
[2021-05-20] MEDS: lisinopriL 10 MG TABLET PO (08:37)
[2021-05-20] MEDS: amLODIPine BESYLATE 5 MG TABLET PO (08:37)
[2021-05-20] MEDS: ATORVASTATIN 20 MG TABLET PO (08:37)
[2021-05-20] MEDS: APIXABAN 5 MG TABLET PO (08:37)
[2021-05-20] MEDS: METOPROLOL TARTRATE 50 MG TAB PO (08:37)
[2021-05-20] MEDS: ASPIRIN 81 MG CHEWABLE TABLET PO (08:39)
--- NOTE | 2021-05-20 10:14 | P.DS_ITS ---
DS: Admitting Diagnosis Discharge Date 05/20/2021 Admitting Diagnosis CHF exacerbation DS: Discharge Diagnosis Discharge Diagnosis (1) Dyspnea due to congestive heart failure: Code(s): I50.9 - Heart failure, unspecified Status: Acute Assessment and Plan: Patient presented with SOB and increased lower extremity swelling. CXR with findings consistent with pulmonary edema. BNP 2400 * He was seen in consultation by Cardiology * Echo performed which showed EF 50-55% with diastolic dysfunction * He was diuresed with IV Lasix and volume status improved. Transitioned to p.o. furosemide which she will continue 40 mg daily * CHF Education provided * Required 2 L supplemental oxygen due to CHF exacerbation, though no documented hypoxia. He was able be easily weaned to room air and had no episodes of desaturation with activity or at rest * Continue lisinopril and metoprolol * Follow-up with cardiology as an outpatient (2) Atrial fibrillation: Code(s): I48.91 - Unspecified atrial fibrillation Status: Acute Assessment and Plan: New onset. EKG on presentation showed atrial fibrillation with heart rate 101. * He was seen in consultation by Cardiology * Started on metoprolol tartrate 50 mg b.i.d. which he will continue * Started on therapeutic Lovenox injections and was transitioned to p.o. Eliquis. CHADS2-VASC score is 3. HASBLED score is 1. Discussed risk of stroke vs risk of bleeding with patient who is agreeable to proceed with anticoagulation. Continue Eliquis 5 mg b.i.d. * Monitored on telemetry during hospitalization. Remained in atrial fibrillation with rate well controlled * Follow-up with cardiology in 2 weeks (3) Elevated troponin: Code(s): R77.8 - Other specified abnormalities of plasma proteins Status: Acute Assessment and Plan: Mildly elevated with flat trend. Peak at 0.06. * Appreciate cardiology consultation * Higbee to be related to volume overload * No further evaluation required per Cardiology (4) CKD (chronic kidney disease), stage III: Code(s): N18.30 - Chronic kidney disease, stage 3 unspecified Status: Acute Assessment and Plan: renal function remained consistent with baseline (5) Hypertension: Code(s): I10 - Essential (primary) hypertension Status: Acute Assessment and Plan: Blood pressure elevated initially, likely due to volume overload. Improved with diuresis * Continue lisinopril, amlodipine, metoprolol * Lasix 40 mg daily (6) Elevated lipids: Code(s): E78.5 - Hyperlipidemia, unspecified Status: Acute Assessment and Plan: Lipid panel reviewed * started pravastatin 20 mg daily per Cardiology recommendations. (7) Abnormal CT of the abdomen: Code(s): R93.5 - Abnormal findings on diagnostic imaging of other abdominal regions, including retroperitoneum Status: Acute Assessment and Plan: CTA chest/abdomen/pelvis with the following incidental findings: * mildly nodular liver surface suspicious for cirrhosis - LFTs, bilirubin, platelets, INR are within normal limits. * sludge vs stone in the gallbladder with gallbladder distention which may be related to fasting state - Patient is asymptomatic and tolerating diet * discussed with patient. He is asymptomatic. You should follow-up with his PCP and would need to consider outpatient RUQ US vs general surgery referral if he were to develop symptoms (8) Bright red blood per rectum: Code(s): K62.5 - Hem
--- NOTE | 2021-05-20 10:14 | PM.DS ---
DS: Admitting Diagnosis Discharge Date 05/20/2021 Admitting Diagnosis CHF exacerbation DS: Discharge Diagnosis Discharge Diagnosis (1) Dyspnea due to congestive heart failure: Code(s): I50.9 - Heart failure, unspecified Status: Acute Assessment and Plan: Patient presented with SOB and increased lower extremity swelling. CXR with findings consistent with pulmonary edema. BNP 2400 He was seen in consultation by Cardiology Echo performed which showed EF 50-55% with diastolic dysfunction He was diuresed with IV Lasix and volume status improved. Transitioned to p.o. furosemide which she will continue 40 mg daily CHF Education provided Required 2 L supplemental oxygen due to CHF exacerbation, though no documented hypoxia. He was able be easily weaned to room air and had no episodes of desaturation with activity or at rest Continue lisinopril and metoprolol Follow-up with cardiology as an outpatient (2) Atrial fibrillation: Code(s): I48.91 - Unspecified atrial fibrillation Status: Acute Assessment and Plan: New onset. EKG on presentation showed atrial fibrillation with heart rate 101. He was seen in consultation by Cardiology Started on metoprolol tartrate 50 mg b.i.d. which he will continue Started on therapeutic Lovenox injections and was transitioned to p.o. Eliquis. CHADS2-VASC score is 3. HASBLED score is 1. Discussed risk of stroke vs risk of bleeding with patient who is agreeable to proceed with anticoagulation. Continue Eliquis 5 mg b.i.d. Monitored on telemetry during hospitalization. Remained in atrial fibrillation with rate well controlled Follow-up with cardiology in 2 weeks (3) Elevated troponin: Code(s): R77.8 - Other specified abnormalities of plasma proteins Status: Acute Assessment and Plan: Mildly elevated with flat trend. Peak at 0.06. Appreciate cardiology consultation Merlin to be related to volume overload No further evaluation required per Cardiology (4) CKD (chronic kidney disease), stage III: Code(s): N18.30 - Chronic kidney disease, stage 3 unspecified Status: Acute Assessment and Plan: renal function remained consistent with baseline (5) Hypertension: Code(s): I10 - Essential (primary) hypertension Status: Acute Assessment and Plan: Blood pressure elevated initially, likely due to volume overload. Improved with diuresis Continue lisinopril, amlodipine, metoprolol Lasix 40 mg daily (6) Elevated lipids: Code(s): E78.5 - Hyperlipidemia, unspecified Status: Acute Assessment and Plan: Lipid panel reviewed started pravastatin 20 mg daily per Cardiology recommendations. (7) Abnormal CT of the abdomen: Code(s): R93.5 - Abnormal findings on diagnostic imaging of other abdominal regions, including retroperitoneum Status: Acute Assessment and Plan: CTA chest/abdomen/pelvis with the following incidental findings: mildly nodular liver surface suspicious for cirrhosis - LFTs, bilirubin, platelets, INR are within normal limits. sludge vs stone in the gallbladder with gallbladder distention which may be related to fasting state - Patient is asymptomatic and tolerating diet discussed with patient. He is asymptomatic. You should follow-up with his PCP and would need to consider outpatient RUQ US vs general surgery referral if he were to develop symptoms (8) Bright red blood per rectum: Code(s): K62.5 - Hemorrhage of anus and rectum Status: Acute Assessment and Plan: Patient reported one episode of brbpr after a bowel movement. likely due to hemorrhoids which patient reports history of no further episodes of bleeding during hospitalization H&H remained stable Started on stool softener. Discussed increasing fiber in diet. Avoid straining. Discussed monitoring closely for signs of bleeding with initiation of Eliqui
[2021-05-20] MEDS: FUROSEMIDE 40 MG TABLET PO (10:18)
== END 2021-05-20 11:15 | disposition home or self-care (01) ==
LOC: ANHED 10:56 → ANHIMU 13:14
PROVIDERS: Emergency Medicine; Internal Medicine Cardiovascular Disease; Admitting Provider Internal Medicine; Emergency Provider Emergency Medicine; PCP Emergency Medicine; Visit Provider Physician Assistant
DX: I13.0 Hypertensive heart and chronic kidney disease with heart failure and stage 1 through stage 4 chronic kidney disease, or unspecified chronic kidney disease (principal); I50.9 Heart failure, unspecified; N18.30 Chronic kidney disease, stage 3 unspecified; I48.91 Unspecified atrial fibrillation; R06.02 Shortness of breath; R60.0 Localized edema; R77.8 Other specified abnormalities of plasma proteins; E66.9 Obesity, unspecified; E78.5 Hyperlipidemia, unspecified; R93.5 Abnormal findings on diagnostic imaging of other abdominal regions, including retroperitoneum; K62.5 Hemorrhage of anus and rectum; Z20.822 Contact with and (suspected) exposure to COVID-19; Z87.891 Personal history of nicotine dependence; Z68.41 Body mass index [BMI] 40.0-44.9, adult; I35.0 Nonrheumatic aortic (valve) stenosis
CPT/HCPCS: 36415; 71045; 71275; 74177; 80048; 80053; 80061; 83880; 84484; 85025; 85027; 85380; 87426; 93005; 93306; 94640; 96372; 96374; 96376; 99285; A9270; C9803; G0378; J1650; J1940; Q9967; U0003; U0005

== ENCOUNTER 2021-12-11 01:27 | Emergency (ER) | payer MEDICARE, SELFPAY ==
[2021-12-11 01:33] VITALS: BP 155/92; PULSE 82; RESP 18; TEMP 36.2; O2SAT 99
[2021-12-11 03:10] LABS: Basophils Absolute Auto 0.1 K/mm3 (0.0-0.1); Basophils Percent Auto 0.6 % (0.2-1.2); Eosinophils Absolute Auto 1.1 K/mm3 (0-0.3); Eosinophils Percent Auto 11.2 % (0-4.4); Hematocrit 37.8 % (42.0-52.0); Hemoglobin 11.8 g/dL (14.0-18.0); Immature Granulocyte Absolute 0.03 K/mm3 (0.00-0.031); Immature Granulocyte Percent A 0.3 % (0-0.5); Lymphocytes Absolute Auto 1.51 K/mm3 (0.9-3.2); Lymphocytes Percent Auto 14.8 % (18.3-44.2); Mean Corpuscular HGB Conc 31.2 g/dl (32-36); Mean Corpuscular Hemoglobin 30.3 pg (26-34); Mean Corpuscular Volume 97.2 fl (80-100); Mean Platelet Volume 9.7 fl (7.4-10.4); Monocytes Absolute Auto 0.8 K/mm3 (0.1-0.6); Monocytes Percent Auto 7.6 % (2.6-8.5); Neutrophils Absolute Auto 6.7 K/mm3 (1.3-6.7); Neutrophils Percent Auto 65.5 % (45.5-73.1); Platelet Count Result 169 k/mm3 (150-375); Red Blood Count 3.89 M/mm3 (4.6-6.20); Red Cell Distribution Width 13.6 % (11.5-14.5); White Blood Count 10.2 K/mm3 (4.5-10.0)
[2021-12-11 03:20] LABS: INR 1.4; Prothrombin Time 16.6 Seconds (11.1-14.7)
[2021-12-11 03:21] LABS: Partial Thromboplastin Time 35.4 SECONDS (22.3-36.8)
--- NOTE | 2021-12-11 04:21 | ED.EPISTAXIS ---
HPI - Epistaxis General Chief complaint: Epistaxis Stated complaint: nosebleed Time Seen by Provider: 12/11/21 02:24 History of Present Illness HPI Narrative: 81-year-old male who is on Xarelto presents here after he had a nosebleed that just did not seem to stop, denies any recent trauma, states that he had just taken aspirin because he was outside gardening and has muscle aches, and then after that he noticed that he started having nosebleed from the right nare. Denies any chest pain, lightheadedness, difficulty breathing, denies any nasal trauma. He has tried stuffing it with tissue without much improvement. Related Data Home Medications Medication Instructions Recorded Confirmed furosemide 40 mg tablet 20 mg PO QAM 11/17/21 12/06/21 Allergies Allergy/AdvReac Type Severity Reaction Status Date / Time camphor [From Biofreeze] Allergy Intermediate Hives Verified 12/11/21 02:22 menthol [From Biofreeze] Allergy Intermediate Hives Verified 12/11/21 02:22 Review of Systems Review of Systems: CONST: No malaise. HEAD: No trauma ENT: Bloody nose C/V: No chest pain RESP: No difficulty breathing GI: No nausea or vomiting M/S: No joint pain. SKIN: No rash. NEURO: [No headache or focal numbness or weakness] PSYCH: [No depression] PENDING SALE TO [facility] Past Medical History Medical History Aortic stenosis, moderate Atrial fibrillation DJD (degenerative joint disease) Dyspnea due to congestive heart failure Elevated lipids Hypertension Insomnia Family History Family History Father Family history of liver disease Diabetes mellitus Family history of kidney disease Mother Family history of diabetes mellitus in first degree relative Diabetes mellitus Family history of renal failure Other Family history of gout Social History Social History Social History: Smoking packs per day: 0.5 Smoking cigarettes per day: 10.0 Years smoked: 18 Smoking pack-years: 9.00 Smoking status: Former smoker Tobacco type: cigarettes Second hand tobacco smoke exposure: Yes Smoking end date: 05/16/75 Alcohol intake: current Alcohol use details: Occasionally Substance use: never Substance use type: does not use Other substance usage details: alcohol - very rare Gender identity (if verbalized by the patient): Male Sexual Orientation (if Verbalized by the Patient): Straight or Heterosexual Spiritual care concerns: No Exam Narrative: EXAMINATION OF ORGAN SYSTEMS/BODY AREAS: Constitutional: Vital signs per nursing GENERAL:[No acute distress, non-toxic appearing.] HEAD: Normal with no signs of head trauma. EYES: EOMI, conjunctiva normal ENT: Some blood in the right nare LUNGS: Nonlabored breathing. HEART: [Regular rate and rhythm] ABD: [Soft], [nontender to palpation] EXT: Normal range of motion SKIN: [No rashes or lesions.] NEURO: [Alert and oriented x 3. No gross focal sensory or strength deficits.] PSYCH: Normal affect Course Vital Signs Vital signs: Vital Signs Temperature 97.1 F L 12/11/21 01:33 Pulse Rate 82 12/11/21 01:33 Respiratory Rate 18 12/11/21 01:33 Blood Pressure 155/92 H 12/11/21 01:33 Pulse Oximetry 99 12/11/21 01:33 Oxygen Delivery Room Air 12/11/21 01:33 Temperature 97.1 F L 12/11/21 01:33 Pulse Rate 84 12/11/21 04:48 Respiratory Rate 18 12/11/21 04:48 Blood Pressure 153/89 H 12/11/21 04:48 Pulse Oximetry 99 12/11/21 04:48 Oxygen Delivery Room Air 12/11/21 01:33 MDM - Epistaxis MDM Narrative Medical decision making narrative: 81-year-old male presenting with nosebleed, vital signs stable, exam shows well-appearing patient with ongoing bleeding from his right nare, I did have the patient blow out and coughed out large chunks of clots, then applied Afrin and TXA to both nares, and th
[2021-12-11 04:48] VITALS: BP 153/89; PULSE 84; RESP 18; O2SAT 99
== END 2021-12-11 04:51 | disposition home or self-care (01) ==
PROVIDERS: Emergency Provider Emergency Medicine; PCP Family Medicine
DX: R04.0 Epistaxis (principal); I35.0 Nonrheumatic aortic (valve) stenosis; I48.91 Unspecified atrial fibrillation; Z79.01 Long term (current) use of anticoagulants; I50.9 Heart failure, unspecified; I11.0 Hypertensive heart disease with heart failure; Z87.891 Personal history of nicotine dependence
CPT/HCPCS: 36415; 85025; 85610; 85730; 99283; A9270

== ENCOUNTER 2021-12-11 09:24 | Emergency (ER) | payer MEDICARE, SELFPAY ==
[2021-12-11 09:25] VITALS: BP 153/90; PULSE 72; RESP 16; TEMP 36.4; O2SAT 95
--- NOTE | 2021-12-11 09:50 | ED.EPISTAXIS ---
HPI - Epistaxis General Chief complaint: Epistaxis Stated complaint: nose blood for approx 30 minutes Time Seen by Provider: 12/11/21 09:47 Source: patient Mode of arrival: ambulatory Limitations: no limitations History of Present Illness HPI Narrative: Patient is an 81-year-old male who presents the ED with report of epistaxis from right nare. Patient is on Xarelto due to history of atrial fibrillation. He reported having an intermittent epistaxis yesterday, but developed profuse bleeding around 1 AM and came to the ED. He received TXA and Afrin in bilateral naris with improvement of epistaxis. He went to sleep and woke up this morning with a recurrent epistaxis. He placed a nasal clamp at home around 830, but reports he has still been bleeding. Blood running down back of throat. He has coughed up a few large clots in the ED bed. No fever. Related Data Home Medications Medication Instructions Recorded Confirmed furosemide 40 mg tablet 20 mg PO QAM 11/17/21 12/06/21 Allergies Allergy/AdvReac Type Severity Reaction Status Date / Time camphor [From Biofreeze] Allergy Intermediate Hives Verified 12/11/21 09:24 menthol [From Biofreeze] Allergy Intermediate Hives Verified 12/11/21 09:24 Review of Systems Review of Systems: CONSTITUTIONAL: Denies fever. ENT: Reports R nare epistaxis. NEUROLOGIC: Denies headache. All systems reviewed & are unremarkable except as noted in HPI and below PMFSH Past Medical History Medical History (Updated 12/11/21 @ 11:09 by Hiral Gabriel PA-C) Aortic stenosis, moderate Atrial fibrillation DJD (degenerative joint disease) Dyspnea due to congestive heart failure Elevated lipids Hypertension Insomnia Surgical History Surgical History (Updated 12/11/21 @ 10:05 by Hiral Gabriel PA-C) History of total knee replacement Family History Family History Father Family history of liver disease Diabetes mellitus Family history of kidney disease Mother Family history of diabetes mellitus in first degree relative Diabetes mellitus Family history of renal failure Other Family history of gout Social History Social History Social History: Smoking packs per day: 0.5 Smoking cigarettes per day: 10.0 Years smoked: 18 Smoking pack-years: 9.00 Smoking status: Former smoker Tobacco type: cigarettes Second hand tobacco smoke exposure: Yes Smoking end date: 05/16/75 Alcohol intake: current Alcohol use details: Occasionally Substance use: never Substance use type: does not use Other substance usage details: alcohol - very rare Gender identity (if verbalized by the patient): Male Sexual Orientation (if Verbalized by the Patient): Straight or Heterosexual Spiritual care concerns: No Exam Narrative: GENERAL: Well appearing, well-nourished, non-toxic, in no acute distress. HEAD: Normocephalic, atraumatic. NOSE: Dried blood in right nare. No obvious sites of bleeding along Kiesselbach plexus. No blood in left nare. Nasal clamp in place. THROAT: Bright red blood down posterior pharynx, clot present and able to be easily coughed up. NECK: Supple. No adenopathy, no masses. RESPIRATORY: Airway patent, respirations nonlabored. Clear to auscultation bilaterally, no rales, rhonchi, wheezing. CARDIOVASCULAR: Regular rate and rhythm without murmurs, rubs, or gallops. Peripheral pulses 2+ and equal bilaterally. MUSCULOSKELETAL: Moves all extremities. Strength/ROM intact without gross deformities. SKIN: Warm, dry, normal color. No rashes. NEURO: A&O X3. Speech clear. Cranial nerves II-XII grossly intact. Steady gait. No ataxic movements. PSYCHIATRIC: Appropriate mood and affect. Normal interaction. Course Vital Signs Vital signs: Vital Signs Temperature 97.5 F L 12/11/21 09:25 Pulse Rate 72 12/11/21 09:25 Respiratory Rate 16 12/11/21 0
[2021-12-11 10:06] LABS: Basophils Absolute Auto 0.1 K/mm3 (0.0-0.1); Basophils Percent Auto 0.6 % (0.2-1.2); Eosinophils Absolute Auto 0.9 K/mm3 (0-0.3); Eosinophils Percent Auto 9.4 % (0-4.4); Hematocrit 38.1 % (42.0-52.0); Hemoglobin 11.7 g/dL (14.0-18.0); Immature Granulocyte Absolute 0.05 K/mm3 (0.00-0.031); Immature Granulocyte Percent A 0.5 % (0-0.5); Lymphocytes Percent Auto 10.4 % (18.3-44.2); Mean Corpuscular HGB Conc 30.7 g/dl (32-36); Mean Corpuscular Hemoglobin 30.1 pg (26-34); Mean Corpuscular Volume 97.9 fl (80-100); Mean Platelet Volume 9.6 fl (7.4-10.4); Monocytes Absolute Auto 0.7 K/mm3 (0.1-0.6); Monocytes Percent Auto 7.3 % (2.6-8.5); Neutrophils Absolute Auto 6.9 K/mm3 (1.3-6.7); Neutrophils Percent Auto 71.8 % (45.5-73.1); Platelet Count Result 178 k/mm3 (150-375); Red Blood Count 3.89 M/mm3 (4.6-6.20); Red Cell Distribution Width 13.6 % (11.5-14.5); White Blood Count 9.7 K/mm3 (4.5-10.0)
[2021-12-11 10:28] LABS: INR 1.4; Prothrombin Time 16.2 Seconds (11.1-14.7)
[2021-12-11 10:29] LABS: Partial Thromboplastin Time 31.3 SECONDS (22.3-36.8)
[2021-12-11 11:46] VITALS: BP 147/87; PULSE 73; RESP 18; O2SAT 98
== END 2021-12-11 11:48 | disposition home or self-care (01) ==
PROVIDERS: Physician Assistant; Emergency Provider Emergency Medicine; PCP Family Medicine
DX: R04.0 Epistaxis (principal); I48.91 Unspecified atrial fibrillation; Z79.01 Long term (current) use of anticoagulants; I35.0 Nonrheumatic aortic (valve) stenosis; I50.9 Heart failure, unspecified; I11.0 Hypertensive heart disease with heart failure; Z96.659 Presence of unspecified artificial knee joint; Z87.891 Personal history of nicotine dependence
CPT/HCPCS: 30901; 36415; 85025; 85610; 85730; 99283; A9270

== ENCOUNTER 2021-12-27 17:54 | Emergency (ER) | payer MEDICARE, SELFPAY ==
--- NOTE | ~2021-12-27 | XR_ITS ---
XR finger 1st LT min 2V 12/27/2021 18:17 INDICATION: Left first finger pain PROCEDURE: 2 views left first finger COMPARISON: No prior studies for comparison. FINDINGS: Fracture, dislocation or subluxation is not identified. There is mild polyarticular osteoar thritis. The soft tissues appear within normal limits. No foreign bodies are identified. IMPRESSION: 1: NO ACUTE BONE OR JOINT ABNORMALITY IDENTIFIED. Reviewed, dictated and finalized at location A.
[2021-12-27 17:55] VITALS: BP 144/91; PULSE 82; RESP 18; TEMP 36.6; O2SAT 100
--- NOTE | 2021-12-27 18:18 | ED.WOUNDLAC ---
HPI - Wound/Laceration General Chief Complaint: Wound/Laceration Stated Complaint: left thumb lac Time Seen by Provider: 12/27/21 18:01 Source: patient Mode of arrival: ambulatory Limitations: no limitations History of Present Illness HPI narrative: This is a 81 year old male that presents to the ER for laceration to the left thumb sustained just prior to arrival. Reports he accidentally grabbed his saw. Sustained two lacerations to the end of the finger. Reports bleeding and pain to the area. Denies decreased ROM or numbness. Related Data Home Medications Medication Instructions Recorded Confirmed furosemide 40 mg tablet 20 mg PO QAM 11/17/21 12/06/21 Allergies Allergy/AdvReac Type Severity Reaction Status Date / Time camphor [From Biofreeze] Allergy Intermediate Hives Verified 12/11/21 09:24 menthol [From Biofreeze] Allergy Intermediate Hives Verified 12/11/21 09:24 Review of Systems Review of Systems: CONSTITUTIONAL: Denies fever SKIN: Reports laceration All systems reviewed & are unremarkable except as noted in HPI and below PMFSH Past Medical History Medical History (Updated 12/27/21 @ 18:59 by Hazel Torres PA-C) Aortic stenosis, moderate Atrial fibrillation DJD (degenerative joint disease) Dyspnea due to congestive heart failure Elevated lipids Hypertension Insomnia Rheumatoid arthritis Surgical History Surgical History (Updated 12/21/21 @ 15:39 by Niya Almaguer, RT(R)) History of shoulder surgery History of total knee replacement Family History Family History (Updated 12/21/21 @ 15:39 by Niya Almaguer RT(R)) Father Family history of liver disease Diabetes mellitus Family history of kidney disease Mother Family history of diabetes mellitus in first degree relative Diabetes mellitus Family history of renal failure Other Family history of gout Hypertension Social History Social History (Updated 12/21/21 @ 15:40 by Niya Almaguer RT(R)) Social History: Smoking packs per day: 0.5 Smoking cigarettes per day: 10.0 Years smoked: 18 Smoking pack-years: 9.00 Smoking status: Former smoker Tobacco type: cigarettes Second hand tobacco smoke exposure: Yes Smoking end date: 05/16/17 Alcohol intake: current Alcohol use details: Occasionally Substance use: never Substance use type: does not use Other substance usage details: alcohol - very rare Gender identity (if verbalized by the patient): Male Sexual Orientation (if Verbalized by the Patient): Straight or Heterosexual Spiritual care concerns: No Exam Narrative: GENERAL: Well-appearing, well-nourished, and in no acute distress. HEAD: Normocephalic, atraumatic. EYES: EOMI. EXTREMITIES: Normal range of motion. No edema or obvious deformity. Left fifth finger distal phalanx with 1.5cm linear laceration into subcutaneous tissue and additional 1cm linear laceration into subcutaneous tissue SKIN: Warm, dry, no rash. NEURO: No focal deficits. Alert and oriented x3. PSYCH: Normal mood and affect Course Vital Signs Vital signs: Vital Signs Temperature 97.9 F 12/27/21 17:55 Pulse Rate 82 12/27/21 17:55 Respiratory Rate 18 12/27/21 17:55 Blood Pressure 144/91 H 12/27/21 17:55 Pulse Oximetry 100 12/27/21 17:55 Temperature 97.9 F 12/27/21 17:55 Pulse Rate 82 12/27/21 17:55 Respiratory Rate 18 12/27/21 17:55 Blood Pressure 144/91 H 12/27/21 17:55 Pulse Oximetry 100 12/27/21 17:55 Procedures Laceration Laceration 1: Date: 12/27/21 Time: 18:55 Site: hand Side (If applicable): left Size (cm): 1.5 Description: linear Depth: simple, single layer Local Anesthetic: lidocaine 1% Amount of anesthesia used (mL): 3 Pre-repair: wound explored and irrigated ====== Skin Level ====== Skin layer closed with: nylon Size (cm): 4-0 Number of sutures: 3
[2021-12-27] MEDS: TETANUS,DIPHTHERIA,AC PERTUSSIS ADULT (0.5 ML) BOOSTRIX IM (18:56)
== END 2021-12-27 19:15 | disposition home or self-care (01) ==
PROVIDERS: Emergency Provider Preventive Medicine Aerospace Medicine; PCP Family Medicine
DX: S61.012A Laceration without foreign body of left thumb without damage to nail, initial encounter (principal); Z23 Encounter for immunization; I35.0 Nonrheumatic aortic (valve) stenosis; I48.91 Unspecified atrial fibrillation; I50.9 Heart failure, unspecified; I11.0 Hypertensive heart disease with heart failure; M06.9 Rheumatoid arthritis, unspecified; Z96.659 Presence of unspecified artificial knee joint; Z87.891 Personal history of nicotine dependence; W27.8XXA Contact with other nonpowered hand tool, initial encounter
CPT/HCPCS: 12001; 73140; 90471; 90715; 99283

== ENCOUNTER 2022-05-16 17:17 | Inpatient (IN) | payer MEDICARE, SELFPAY ==
[2022-05-16] VITALS (25 sets, daily range): BP systolic 113–155; BP diastolic 77–108; PULSE 72–87; RESP 15–27; TEMP 36.1–37.1; O2SAT 80–96; BMI 37.9; BMI 46.5
--- NOTE | ~2022-05-16 | XR_ITS ---
Portable chest x-ray Comparison: 05/18/2022 Clinical History: Hypoxia Findings: Extensive hazy right lung consolidation is again present, predominantly centrally. There a re mild patchy groundglass opacities in the left lung. Cardiomediastinal silhouette is stable. Bones and soft tissues are unremarkable. Impression: Extensive bilateral groundglass pulmonary disease, right lung worse than left. Findings suggest bilat eral pneumonia versus asymmetric pulmonary edema. Correlate clinically. Reviewed, dictated and finalized at location . ER FINISHER Impression: Extensive bilateral groundglass pulmonary disease, right lung worse than left. Findings suggest bilateral pneumonia versus asymmetric pulmonary edema. Correla te clinically.
--- NOTE | ~2022-05-16 | XR_ITS ---
EXAMINATION: XR chest 2V Exam Date/Time: 05/16/2022 17:45 PRACTICE LEAD HISTORY: SOB worsening past few days, started 2 wks ago. HX htn,Chf Comparison: None available. RESULT: Lines, tubes, and devices: None. Lungs and pleura: Lateral view limited by low lung volume. Patchy airspace disease in the upper and lower right lung. Bilateral posterior costophrenic angle blunting. Cardiomediastinal silhouette: Cardiomegaly. Other: No acute osseous or upper abdominal finding. IMPRESSION: Right lung opacities may reflect asymmetric edema or pneumonia. Small bilateral effusions. Reviewed, dictated and finalized at location K. TICE LEAD
--- NOTE | ~2022-05-16 | XR_ITS ---
Portable chest x-ray Comparison: 05/16/2022 Clinical History: Shortness of breath Findings: Extensive right lung consolidation is again present. Left lung remains essentially clear. Cardiomediastinal silhouette is stable. Bones and soft tissues are unremarkable. Impression: Extensive right lung consolidation unchanged, most compatible with multilobar right lung pneumonia. C orrelate for asymmetric pulmonary edema. Reviewed, dictated and finalized at location . AGE BABYSITTER Impression: Extensive right lung consolidation unchanged, most compatible with multilobar r ight lung pneumonia. Correlate for asymmetric pulmonary edema.
--- NOTE | ~2022-05-16 | CT_ITS ---
EXAMINATION:CT diagnostic chest wo con DATE: 05/18/2022 12:23 INDICATION: Shortness of breath and cough. Abnormal chest radiograph. TECHNIQUE: Computed tomography (CT) of the chest was performed without intravenous contrast. Automate d exposure control and iterative reconstruction technique were employed. The dose-length product (DLP ) was 838.30 mGy-cm. COMPARISON: Chest single view 05/18/2022, chest CT 05/18/2021, 09/29/2007 FINDINGS: There are airspace and groundglass opacities and crazy paving in right lung with a perihila r predominance. There are patchy groundglass opacities in left lung. There is diffuse smooth septal t hickening in the lungs. There are small pleural effusions, right worse than left. Cardiomegaly is not ed. There are coronary artery calcifications. There are calcifications aortic valve. No pericardial e ffusion. Calcified right hilar lymph nodes are consistent with old granulomatous disease. There is a 2.9 cm cyst in the liver. There is liver surface nodularity suspicious for cirrhosis. There are 2 sto charlene in the visualized portion of left kidney measuring up to 4 mm . There is bilateral gynecomastia. There is severe thoracic spondylosis. IMPRESSION: 1. Diffuse lung disease with worsening from 8:58 AM, likely moderate pulmonary edema. 2. Improved small pleural effusions. 3. Cardiomegaly. 4. Liver surface nodularity suspicious for cirrhosis. Reviewed, dictated and finalized at location A. 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
--- NOTE | ~2022-05-16 | US_ITS ---
Renal-Bladder ultrasound Clinical History: Renal failure Technique: Real-time sonographic imaging of the kidneys and urinary bladder was performed. Findings: The right kidney measures 11.1 cm in length and the left kidney measures 11.0 cm. There is no hydronephrosis or renal calculus identified. Renal cortical echogenicity is within normal limits. No solid renal mass lesion is identified. Small bilateral renal cysts noted. The urinary bladder is partially distended at the time of this exam. No intraluminal echoes are ident ified. No abnormal wall thickening is seen. Impression: No significant abnormality seen. Reviewed, dictated and finalized at location . ECTION SPECIALIST Impression: No significant abnormality seen.
--- NOTE | 2022-05-16 17:21 | ECG_ITS ---
Measurements Intervals [place] Rate: 79 P: NM: 0 QRS: -10 QRSD: 98 T: 32 QT: 383 QTc: 441 Interpretive Statements ATRIAL FIBRILLATION BASELINE ARTIFACT- I, II, AVR, AVL, AVF, V1-V2 ABNORMAL ECG NO PREVIOUS ECG AVAILABLE FOR COMPARISON Electronically Signed On 05-16-2022 19:38:05 SECURITY ATTENDANT by Lcua Kaufman D.O.
--- NOTE | 2022-05-16 17:32 | ED.SOB ---
HPI - SOB/Dyspnea General Chief Complaint: Shortness of Breath/Dyspnea <HERBERTH Lisa Last Filed: 05/16/22 20:20> Stated Complaint: SOB <HERBERTH Lisa Last Filed: 05/16/22 20:20> Time Seen by Provider: 05/16/22 17:32 <HERBERTH Lisa Last Filed: 05/16/22 20:20> Source: patient and old records reviewed <HERBERTH Lisa Last Filed: 05/16/22 20:20> Mode of arrival: EMS <HERBERTH Lisa Last Filed: 05/16/22 20:20> Limitations: no limitations <HERBERTH Lisa Last Filed: 05/16/22 20:20> History of Present Illness HPI Narrative: Patient is an 81 y/o female who presents to the ED via EMS with report of shortness of breath. Patient reports he has not felt well since , with cough, congestion, runny nose, nausea, subjective fevers. Over the last 3 to 4 days, he has had increased shortness of breath, worse with exertion. He states even walking across his house he becomes winded and has to take a few moments to rest and recover his breath. Shortness of breath became worse today, which prompted him to call EMS. EMS noted patient to be hypoxic on scene. Patient does not wear oxygen usually. He was 80% on room air upon arrival to the ED and placed on oxygen via nasal cannula. Patient does report having increased BLE edema over the last 1 week, as well as chest heaviness currently. He does have history of CHF and takes Lasix 20 mg daily. He has also has a history of atrial fibrillation and is on Xarelto. Has not missed any doses. <HERBERTH Lisa Last Filed: 05/16/22 20:20> Related Data Allergies/Adverse Reactions: Allergies Allergy/AdvReac Type Severity Reaction Status Date / Time No Known Allergies Allergy Verified 05/16/22 17:40 <HERBERTH Lisa Last Filed: 05/16/22 20:20> Review of Systems Review of Systems: CONSTITUTIONAL: Reports subjective fever. ENT: Reports rhinorrhea, congestion. CARDIOVASCULAR: Reports chest heaviness, BLE edema. RESPIRATORY: Reports cough and dyspnea/HERNANDEZ. GASTROINTESTINAL: Reports nausea. Denies abdominal pain, vomiting, or diarrhea. <Hiral Holder PA-C - Last Filed: 05/16/22 20:20> All systems reviewed & are unremarkable except as noted in HPI and below <Hiral Holder PA-C - Last Filed: 05/16/22 20:20> [facility] Past Medical History Medical History: Medical History (Updated 05/16/22 @ 20:18 by Hiral Holder PA-C) Atrial fibrillation CHF (congestive heart failure) HLD (hyperlipidemia) HTN (hypertension) Insomnia Osteoarthritis <Hiral Holder PA-C - Last Filed: 05/16/22 20:20> Surgical History Surgical History: Surgical History (Updated 05/16/22 @ 20:18 by Hiral Holder PA-C) History of total knee replacement <Hiral Holder PA-C - Last Filed: 05/16/22 20:20> Social History Social History: Social History Smoking status: Never smoker <Hiral Holder PA-C - Last Filed: 05/16/22 20:20> Exam Narrative: GENERAL: Well appearing, morbidly obese, non-toxic, in no acute distress. HEAD: Normocephalic, atraumatic. NECK: Supple. No adenopathy, no masses. RESPIRATORY: Airway patent, respirations mildly tachypneic but nonlabored. Rhonchi in R mid and lower lung zones. Decreased breath sounds in bases bilaterally. CARDIOVASCULAR: Regular rate with a regular rhythm without murmurs, rubs, or gallops. Radial pulses 2+ and equal bilaterally. ABDOMINAL: Soft, nontender, nondistended, no hepatosplenomegaly. Normoactive BS. MUSCULOSKELETAL: Moves all extremities. Strength/ROM intact without gross deformities. 1+ pitting pedal edema bilaterally. SKIN: Warm, dry, normal color. No rashes. NEURO: A&O X3. Speech clear. Cranial nerves II-XII grossly intact. No ataxic movements. PSYCHIATRIC: Appropriate mood and affect. N
[2022-05-16 18:08] LABS: Alveolar/Arterial O2 Gradient 208.2 mmHg; Base Excess ABG -1.7 mEq/l (+/-2.0); Fractional Inspired Oxygen 44 %; HCO3 ABG 21.6 mEq/l (22.0-26.0); Methemoglobin ABG 0.3 %THb (0-1.5); Oxygen Content ABG 13.3 %vol (16.0-22.0); Oxyhemoglobin 91.1 % THb (90.0-100.0); PCO2 ABG 31.4 mmHg (35.0-45.0); PO2 ABG 69.7 mmHg (80.0-100.0); PO2 FiO2 Ratio Arterial Blood 1.58 %; Reduced Hemoglobin 7.6 %THb (0-5.0); Total Hemoglobin 10.3 g/dL (12.0-18.0); pH ABG 7.455 (7.350-7.450)
[2022-05-16 18:09] LABS: Device NASAL CANNULA; Site Drawn LEFT RADIAL
[2022-05-16 18:35] LABS: Basophils Absolute Auto 0.1 K/mm3 (0.0-0.1); Basophils Percent Auto 0.4 % (0.2-1.2); Eosinophils Percent Auto 0.3 % (0-4.4); Hematocrit 30.6 % (42.0-52.0); Hemoglobin 9.6 g/dL (14.0-18.0); Immature Granulocyte Absolute 0.05 K/mm3 (0.00-0.031); Immature Granulocyte Percent A 0.4 % (0-0.5); Lymphocytes Absolute Auto 0.99 K/mm3 (0.9-3.2); Lymphocytes Percent Auto 8.5 % (18.3-44.2); Mean Corpuscular HGB Conc 31.4 g/dl (32-36); Mean Corpuscular Hemoglobin 30.6 pg (26-34); Mean Corpuscular Volume 97.5 fl (80-100); Mean Platelet Volume 9.7 fl (7.4-10.4); Monocytes Absolute Auto 1.1 K/mm3 (0.1-0.6); Monocytes Percent Auto 9.4 % (2.6-8.5); Neutrophils Absolute Auto 9.4 K/mm3 (1.3-6.7); Platelet Count Result 224 k/mm3 (150-375); Red Blood Count 3.14 M/mm3 (4.6-6.20); Red Cell Distribution Width 13.4 % (11.5-14.5); White Blood Count 11.6 K/mm3 (4.5-10.0)
[2022-05-16 19:06] LABS: Influenza A QL RT-PCR Negative (Negative); Influenza B QL RT-PCR Negative (Negative); SARS-CoV-2 RNA PCR Negative
[2022-05-16 19:12] LABS: Alanine Aminotransferase 16 U/L (6-50); Albumin Level 4.1 g/dL (3.5-5.1); Alkaline Phosphatase 68 U/L (38-126); Anion Gap 7 mmol/L (8-16); Aspartate Amino Transferase 23 U/L (17-59); Bilirubin,Total 1.2 mg/dL (0.2-1.3); Blood Urea Nitrogen 50 mg/dL (9-20); Calcium 8.5 mg/dL (8.4-10.2); Carbon Dioxide 30 mmol/L (22-30); Chloride 101 mmol/L (98-107); Estimated CRCL calculation 25 ml/min; Estimated Glomerular Filt Rate 19; Glucose 109 mg/dL (65-110); Potassium 4.9 mmol/L (3.4-5.0); Sodium 138 mmol/L (137-145)
[2022-05-16 19:21] LABS: NT Pro B Type Natriuretic Pept 12100 pg/mL (5-100)
[2022-05-16 19:24] LABS: Troponin I 0.018 ng/mL (0.000-0.034)
[2022-05-16] MEDS: FUROSEMIDE INJ 40 MG/4 ML VIAL IV PUSH (20:30)
--- NOTE | 2022-05-16 21:01 | PM.IMHP ---
H&P: HPI History of Present Illness Date/Time: 05/16/22 21:01 Chief Complaint: Cough, lower extremity edema, 10 lb weight gain Narrative: Patient is an 81-year-old male with past medical history of congestive heart failure, paroxysmal atrial fibrillation on Xarelto, CKD unknown baseline who presents to ED with complaints of shortness of breath. His symptom onset was around [place], patient states he had gained about 10 lb and has known history of heart failure. He takes Lasix 20 mg daily. He also had some other symptoms of cough congestion runny nose. His dyspnea continued to worsen over the course of the last 2 weeks. On arrival to the ED today his O2 saturation was 80% on room air. Daughter bedside states patient has been gaining weight and she had not closely follow his diet considering heart failure history. In the ED: O2 saturation 80%, placed on 6 L oxygen to keep oxygen saturation greater 90%. Chest x-ray consistent with right-sided opacities concerning for pneumonia or asymmetrical edema. Creatinine is elevated at 3.2, patient has underlying CKD. Patient being admitted for CHF exacerbation and acute kidney injury Review of Systems Review of Systems: Constitutional: No Fever, No Chills, No Night Sweats, No Fatigue, No Malaise. Endorses 10 lb weight gain ENT/Mouth: No Hearing Changes, No Ear Pain, No Nasal Congestion, No Sinus Pain, No Hoarseness, No sore throat, No Rhinorrhea, No Swallowing Difficulty Eyes: No Eye Pain, No Redness, No Vision Changes Cardiovascular: No Chest Pain, No Palpitations, No Dyspnea on Exertion, No Orthopnea, No Claudication, endorses edema Respiratory: Endorses dry cough and shortness of breath, no wheezing Gastrointestinal: No Nausea, No Vomiting, No Diarrhea, No Constipation, No Abdominal Pain, No Heartburn, No Hematochezia, No Melena Genitourinary: No Dysuria, No Urinary Frequency, No Hematuria, No Urinary Incontinence, No Urgency Musculoskeletal: Endorses lower extremity swelling Skin: No Skin Lesions, No Pruritis, No Hair Changes Neuro: No Weakness, No Numbness, No Paresthesias, No Loss of Consciousness, No Syncope, No Dizziness, No Headache Psych: No Anxiety/Panic, No Depression, No Insomnia Heme: No Bruising, No Bleeding Lymph: No Adenopathy Endocrine: No Polyuria, No Polydipsia, No Temperature Intolerance PMFSH Past Medical History Medical History Atrial fibrillation CHF (congestive heart failure) HLD (hyperlipidemia) HTN (hypertension) Insomnia Osteoarthritis Surgical History Surgical History History of total knee replacement Family History Family History (Updated 05/16/22 @ 21:06 by Deonna Stafford DO) Father Heart failure Social History Social History (Updated 05/16/22 @ 21:06 by Deonna Stafford DO) Smoking status: Never smoker Alcohol intake: never Substance use: never Meds Home Medications and Allergies Allergies Allergy/AdvReac Type Severity Reaction Status Date / Time No Known Allergies Allergy Verified 05/16/22 17:40 Vital Signs Vital Signs - 24 hr 05/16/22 17:22 05/16/22 17:31 05/16/22 17:33 Temperature 37.1 C Pulse Rate 80 72 Respiratory Rate 20 Blood Pressure 132/94 H Pulse Oximetry 80 L 92 Oxygen Delivery Room Air Nasal Cannula Oxygen Flow Rate 6 05/16/22 17:37 05/16/22 19:09 05/16/22 17:26 Temperature Pulse Rate 73 81 Respiratory Rate 20 22 H Blood Pressure 145/91 H Pulse Oximetry 92 92 Oxygen Delivery Nasal Cannula Oxygen Flow Rate 6 05/16/22 17:30 05/16/22 17:32 05/16/22 17:53 Temperature Pulse Rate 78 79 81 Respiratory Rate 15 16 25 H Blood Pressure 113/84 Pulse Oximetry Oxygen Delivery Oxygen Flow Rate 05/16/22 18:02 05/16/22 18:15 05/16/22 18:33 Temperature Pulse Rate 77 81 72 Respiratory Rate 17 18 20 Blood Pressure
--- NOTE | 2022-05-16 21:35 | PM.IMHP ---
H&P: HPI History of Present Illness Date/Time: 05/16/22 21:35 Chief Complaint: Cough, lower extremity edema, 10 lb weight gain Narrative: Patient is an 81-year-old male with past medical history of congestive heart failure, paroxysmal atrial fibrillation on Xarelto, CKD unknown baseline who presents to ED with complaints of shortness of breath.? His symptom onset was around [place], patient states he had gained about 10 lb and has known history of heart failure.? He takes Lasix 20 mg daily.? He also had some other symptoms of cough congestion runny nose.? His dyspnea continued to worsen over the course of the last 2 weeks.? On arrival to the ED today his O2 saturation was 80% on room air.? Daughter bedside states patient has been gaining weight and she had not closely follow his diet considering heart failure history. In the ED:? O2 saturation 80%, placed on 6 L oxygen to keep oxygen saturation greater 90%.? Chest x-ray consistent with right-sided opacities concerning for pneumonia or asymmetrical edema.? Creatinine is elevated at 3.2, patient has underlying CKD.? Patient being admitted for CHF exacerbation and acute kidney injury Review of Systems Review of Systems: Constitutional:? No Fever, No Chills, No Night Sweats, No Fatigue, No Malaise.? Endorses 10 lb weight gain ENT/Mouth:? No Hearing Changes, No Ear Pain, No Nasal Congestion, No Sinus Pain, No Hoarseness, No sore throat, No Rhinorrhea, No Swallowing Difficulty Eyes:? No Eye Pain, No Redness, No Vision Changes Cardiovascular:? No Chest Pain, No Palpitations, No Dyspnea on Exertion, No Orthopnea, No Claudication, endorses edema Respiratory:? Endorses dry cough and shortness of breath, no wheezing Gastrointestinal:? No Nausea, No Vomiting, No Diarrhea, No Constipation, No Abdominal Pain, No Heartburn, No Hematochezia, No Melena Genitourinary:? No Dysuria, No Urinary Frequency, No Hematuria, No Urinary Incontinence, No Urgency Musculoskeletal:? Endorses lower extremity swelling Skin:? No Skin Lesions, No Pruritis, No Hair Changes Neuro:? No Weakness, No Numbness, No Paresthesias, No Loss of Consciousness, No Syncope, No Dizziness, No Headache Psych:? No Anxiety/Panic, No Depression, No Insomnia Heme:? No Bruising, No Bleeding Lymph: No Adenopathy Endocrine:? No Polyuria, No Polydipsia, No Temperature Intolerance [facility] Past Medical History Medical History Atrial fibrillation CHF (congestive heart failure) HLD (hyperlipidemia) HTN (hypertension) Insomnia Osteoarthritis Surgical History Surgical History History of total knee replacement Family History Family History Father Heart failure Social History Social History Smoking status: Never smoker Alcohol intake: never Substance use: never Meds Home Medications and Allergies Allergies Allergy/AdvReac Type Severity Reaction Status Date / Time No Known Allergies Allergy Verified 05/16/22 17:40 Vital Signs Vital Signs - 24 hr 05/16/22 17:22 05/16/22 17:31 05/16/22 17:33 Temperature 37.1 C Pulse Rate 80 72 Respiratory Rate 20 Blood Pressure 132/94 H Pulse Oximetry 80 L 92 Oxygen Delivery Room Air Nasal Cannula Oxygen Flow Rate 6 05/16/22 17:37 05/16/22 19:09 05/16/22 17:26 Temperature Pulse Rate 73 81 Respiratory Rate 20 22 H Blood Pressure 145/91 H Pulse Oximetry 92 92 Oxygen Delivery Nasal Cannula Oxygen Flow Rate 6 05/16/22 17:30 05/16/22 17:32 05/16/22 17:53 Temperature Pulse Rate 78 79 81 Respiratory Rate 15 16 25 H Blood Pressure 113/84 Pulse Oximetry Oxygen Delivery Oxygen Flow Rate 05/16/22 18:02 05/16/22 18:15 05/16/22 18:33 Temperature Pulse Rate 77 81 72 Respiratory Rate 17 18 20 Blood Pressure
--- NOTE | 2022-05-16 22:39 | ADMGEN ---
This patient, Arthur Cantor, was admitted to [facility] Surg Room 332-02. Patient/family oriented to hospital policies and general routines including ID bracelet, bed and alarms, visiting hours, pain management, procedures, bathroom and other care routines, personal items, smoking policy, room service/diet, and visiting hours. Information on how to activate the Rapid Response Team has been discussed. Patient/Family are encouraged to report perceived risks to care and to ask questions if they do not understand what they are told or what they should do.
[2022-05-16 23:27] LABS: Troponin I 0.017 ng/mL (0.000-0.034)
[2022-05-17] VITALS (13 sets, daily range): BP systolic 102–129; BP diastolic 62–91; PULSE 77–93; RESP 16–20; TEMP 36.4–36.7; O2SAT 93–94
--- NOTE | 2022-05-17 | ECHO_ITS ---
Patient Info Name: Arthur Cantor Age: 81 years : 1940 Gender: Male Ht: 73 in Wt: 329 lbs BSA: 2.84 m2 HR: 79 bpm BP: 102 / 62 mmHg Heart Rhythm: Atrial Fibrillation Technical Quality: Fair Exam Date: 05/17/2022 7:54 AM Exam Location: [facility] Patient Status: Outpatient Admit Date: 05/16/2022 Staff Ordering Physician: Deonna Stafford DO Corporation Officer: Candi Tan RDCS Attending Provider: Deonna Stafford DO Referring Physician: Rivera LACY; Exam Type: CA echo dop color flow w con Study Info Indications - CHF EXACERBATION R06.00 - Dyspnea, unspecified Complete two-dimensional, color flow and Doppler transthoracic echocardiogram is performed with contrast to opacify the left ventricle and to improve the deliniation of the left ventricle endocardial borders. Contrast/Agitated Saline Contrast/Ag. Saline: Definity Amount: 4.00 ml Administered By: Candi Tan RDCS IV Access Condition: patent with no signs of infiltration Summary 1. Left ventricular chamber dimension is normal. 2. Definity contrast administered improved wall motion interpretation. 3. Left ventricular systolic function is normal, estimated at 65-70%. 4. There is moderately increased left ventricular wall thickness. 5. The left ventricular diastolic function is abnormal. 6. E/e' 10 is mildly elevated. 7. Global longitudinal strain is abnormal at -10.3%. 8. Atrial fibrillation. 9. Right ventricular chamber dimension is moderately enlarged. 10. Right ventricular systolic function is moderately reduced and with abnormal TAPSE 1.3 cm. 11. Left atrial chamber dimension is severely enlarged. 12. Right atrial chamber dimension is severely enlarged. 13. There is severe aortic valve sclerosis. 14. There is moderate aortic valve stenosis with a peak velocity of 273.97 cm/s, mean gradient of 16 mmHg, and aortic valve area of 1.44 cm2. 15. There is mild mitral valve regurgitation. 16. There is trace tricuspid valve regurgitation. 17. Mild pulmonary hypertension, estimated pulmonary arterial systolic pressure is 46 mmHg. Left Ventricle E/e' 10 is mildly elevated. Global longitudinal strain is abnormal at -10.3%. Atrial fibrillation. Definity contrast administered improved wall motion interpretation. Left ventricular chamber dimension is normal. Left ventricular systolic function is normal, estimated at 65-70%. There is moderately increased left ventricular wall thickness. The left ventricular diastolic function is abnormal. Right Ventricle Right ventricular systolic function is moderately reduced and with abnormal TAPSE 1.3 cm. Right ventricular chamber dimension is moderately enlarged. Left Atria Left atrial chamber dimension is severely enlarged. Right Atria Right atrial chamber dimension is severely enlarged. Aortic Valve The aortic valve is trileaflet. There is severe aortic valve sclerosis. There is moderate aortic valve stenosis with a peak velocity of 273.97 cm/s, mean gradient of 16 mmHg, and aortic valve area of 1.44 cm2. There is no aortic valve regurgitation. Pulmonic Valve There is no pulmonic regurgitation. Mitral Valve There is no mitral valve stenosis. There is mild mitral valve regurgitation. Tricuspid Valve There is trace tricuspid valve regurgitation. Mild pulmonary hypertension, estimated pulmonary arterial systolic pressure is 46 mmHg. Pericardium/Pleural There is no pericardia
[2022-05-17 03:21] LABS: Troponin I 0.018 ng/mL (0.000-0.034)
--- NOTE | 2022-05-17 03:43 | PC.NURSE ---
Patient is becoming verbally aggressive with staff. Patient is requesting nyquil. Informed her that we gave her seroquel for sleep. Stated that nurse cannot do her job. Charge nurse went to talk with patient. She became verbally aggressive towards charge nurse. Patient
[2022-05-17 06:50] LABS: Basophils Absolute Auto 0.1 K/mm3 (0.0-0.1); Basophils Percent Auto 0.4 % (0.2-1.2); Eosinophils Absolute Auto 0.1 K/mm3 (0-0.3); Eosinophils Percent Auto 0.6 % (0-4.4); Hematocrit 28.6 % (42.0-52.0); Immature Granulocyte Absolute 0.07 K/mm3 (0.00-0.031); Immature Granulocyte Percent A 0.5 % (0-0.5); Lymphocytes Absolute Auto 1.25 K/mm3 (0.9-3.2); Lymphocytes Percent Auto 9.5 % (18.3-44.2); Mean Corpuscular HGB Conc 31.5 g/dl (32-36); Mean Corpuscular Hemoglobin 30.5 pg (26-34); Mean Corpuscular Volume 96.9 fl (80-100); Mean Platelet Volume 9.9 fl (7.4-10.4); Monocytes Absolute Auto 1.2 K/mm3 (0.1-0.6); Monocytes Percent Auto 9.4 % (2.6-8.5); Neutrophils Absolute Auto 10.5 K/mm3 (1.3-6.7); Neutrophils Percent Auto 79.6 % (45.5-73.1); Nucleated Red Blood Cells Perc 0.2 % (0.0-0.2); Platelet Count Result 235 k/mm3 (150-375); Red Blood Count 2.95 M/mm3 (4.6-6.20); Red Cell Distribution Width 13.2 % (11.5-14.5); White Blood Count 13.2 K/mm3 (4.5-10.0)
[2022-05-17 06:56] LABS: Anion Gap 7 mmol/L (8-16); Blood Urea Nitrogen 52 mg/dL (9-20); Calcium 8.3 mg/dL (8.4-10.2); Carbon Dioxide 29 mmol/L (22-30); Chloride 102 mmol/L (98-107); Estimated CRCL calculation 26 ml/min; Estimated Glomerular Filt Rate 18; Glucose 97 mg/dL (65-110); Magnesium 2.2 mg/dL (1.6-2.3); Potassium 4.3 mmol/L (3.4-5.0); Sodium 138 mmol/L (137-145)
[2022-05-17 07:23] LABS: Procalcitonin 0.3 ng/mL
[2022-05-17] MEDS: PERFLUTREN LIPID MICROSPHERES 1.5 ML VIAL DILUTED TO 10 ML TOTAL VOLUME IV PUSH (08:35)
[2022-05-17] MEDS: MULTIVITAMINS /C LUTEIN (CENTRUM SILVER) TABLET *BKC 1 TAB PO (08:50)
[2022-05-17] MEDS: LORATADINE 10 MG TABLET PO (08:50)
[2022-05-17] MEDS: OMEGA 3 POLYUNSAT FATTY ACIDS 1 GM CAP PO (08:50)
[2022-05-17] MEDS: amLODIPine BESYLATE 5 MG TABLET PO (08:50)
[2022-05-17] MEDS: FAMOTIDINE 20 MG TABLET PO ×2 (08:50→18:14)
[2022-05-17] MEDS: ACIDOPHILUS/BULGARICUS CHEWABLE TABLET 2 TABLET BY MOUTH (08:50)
[2022-05-17] MEDS: METOPROLOL TARTRATE 50 MG TAB PO ×2 (08:51→22:30)
[2022-05-17] MEDS: FUROSEMIDE INJ 40 MG/4 ML VIAL IV PUSH ×2 (08:51→18:14)
--- NOTE | 2022-05-17 16:58 | PM.IMPN ---
Progress Note: A&P Assessment and Plan (1) Acute exacerbation of congestive heart failure: Qualifiers: Heart failure type: unspecified Qualified Code(s): I50.9 - Heart failure, unspecified Code(s): I50.9 - Heart failure, unspecified Status: Acute (2) Acute respiratory failure with hypoxia: Code(s): J96.01 - Acute respiratory failure with hypoxia Status: Acute Plan # acute on chronic congestive heart failure: Echo with normal ejection fraction. 65-70%. Moderate aortic valve stenosis mild pulmonary hypertension noted atrial fibrillation. Diuresis with 40 mg IV b.i.d. as ordered. Watch renal function with a Cardiology consultation. # acute hypoxic respiratory failure -patient reports increased swelling lower extremities, pitting edema, 10 lb weight gain -echocardiogram with diastolic dysfunction -possible pneumonia seen on chest x-ray right lung opacities, more likely related to fluid overload as his cough is nonproductive, will continue antibiotics Rocephin and azithromycin. Will procalcitonin 0.3. Mild leukocytosis present. Will continue antibiotics treat for possible pneumonia. -diuresis with Lasix IV 40 mg b.i.d., patient takes Lasix 20 mg daily dose at home -patient was 80% on room air, acute hypoxic respiratory failure improved with supplemental oxygen 6 L on nasal cannula, will wean [place] [id number] # renal insufficiency creatinine of 3.2. Unknown baseline. Will get renal ultrasound.. Will need to check urinalysis and urine lytes. Urine eosinophil. Renal consultation # hypertension home medication # moderate aortic stenosis # right ventricular dysfunction will check ApneaLink # hyperlipidemia # Atrial fibrillation on Xarelto rate controlled. Continue metoprolol b.i.d. # diet heart healthy with 2 L fluid restriction # DVT prophylaxis on Xarelto # code status full code Subjective Date/time seen: 05/17/22 16:58 Interval history: Feels a bit better today. Swelling is still there. Cough present not on oxygen at home. Does not know the renal function prior to this. Review of Systems Review of Systems: All systems reviewed & are unremarkable except as noted in HPI and below Exam Narrative: GENERAL:? Pleasant elderly male in no acute distress. Alert and oriented x3 EYES: EOMI. Anicteric. HENT: Moist mucous membranes. LUNGS: Clear to auscultation bilaterally, no wheezing, rhonchi.? Breathing comfortably on 6 L oxygen via nasal cannula CARDIOVASCULAR: Regular rate and rhythm. No murmur. No JVD. ABDOMEN: Soft, non-tender and non-distended. No palpable masses. EXTREMITIES:? 3+ pitting edema lower extremities bilateral.? Peripheral pulses 2+. Non-tender. NEUROLOGIC: No focal neurological deficits. CN II-XII grossly intact. PSYCHIATRIC: Awake, Alert and oriented x 3. Appropriate mood and affect. SKIN: No rashes or lesions. Warm. LYMPH: No cervical lymphadenopathy. Objective Data Vital Signs Vital Signs: Vital Signs - 24 hr 05/16/22 17:22 05/16/22 17:31 05/16/22 17:33 Temperature 98.7 F Pulse Rate 80 72 Respiratory Rate 20 Blood Pressure 132/94 H Pulse Oximetry 80 L 92 Oxygen Delivery Room Air Nasal Cannula Oxygen Flow Rate 6 05/16/22 17:37 05/16/22 19:09 05/16/22 17:26 Temperature Pulse Rate 73 81 Respiratory Rate 20 22 H Blood Pressure 145/91 H Pulse Oximetry 92 92 Oxygen Delivery Nasal Cannula Oxygen Flow Rate 6 05/16/22 17:30 05/16/22 17:32 05/16/22 17:53 Temperature Pulse Rate 78 79 81 Respiratory Rate 15 16 25 H Blood Pressure 113/84 Pulse Oximetry Oxygen Delivery Oxygen Flow Rate 05/16/22 18:02 05/16/22 18:15 05/16/22 18:33 Temperature Pulse Rate 77 81 72 Respiratory Rate 17 18 20 Blood Pressure Pulse Oximetry 89 L Oxygen Delivery Oxygen Flow Rate 05/16/22 18:50 05/16/22 19:00 05/16/22 19:15 Temperature Pulse Rate 74 77 76 Respiratory Rate
[2022-05-17] MEDS: RIVAROXABAN 15 MG TABLET PO (18:14)
--- NOTE | 2022-05-17 18:24 | PM.CNCAR ---
Assessment and Plan Assessment and plan (1) Acute exacerbation of congestive heart failure: Qualifiers: Heart failure type: unspecified Qualified Code(s): I50.9 - Heart failure, unspecified Code(s): I50.9 - Heart failure, unspecified Status: Acute Assessment and Plan: Acute on chronic diastolic heart failure. NTproBNP 12,100. 05/17/21 Echo: EF 65-70%, diastolic dysfunction with E/e' 10, mod RVE/hypokinesis, severe biatrial enlargement, mod (JEET 1.4 cm2), mild MR, trace TR, RVSP 46 mmHg. Agree with diuresis with Lasix 40 mg IV BID. He will eventually need a higher maintenance dose of Lasix at 40 mg PO daily and to limit free water intake to 1-1.5 liters per day. Monitor electrolytes and renal function. (2) Pneumonia: Qualifiers: Laterality: right Lung location: unspecified part of lung Pneumonia type: due to unspecified organism Qualified Code(s): J18.9 - Pneumonia, unspecified organism Code(s): J18.9 - Pneumonia, unspecified organism Status: Acute Assessment and Plan: On antibiotics as per hospitalist. CXR shows right lung opacities and small bilateral pleural effusions. (3) HLD (hyperlipidemia): Code(s): E78.5 - Hyperlipidemia, unspecified Status: Acute Assessment and Plan: On Fish Oil. (4) HTN (hypertension): Code(s): I10 - Essential (primary) hypertension Status: Acute Assessment and Plan: Stable. (5) Atrial fibrillation: Qualifiers: Atrial fibrillation type: unspecified Qualified Code(s): I48.91 - Unspecified atrial fibrillation Code(s): I48.91 - Unspecified atrial fibrillation Status: Acute Assessment and Plan: Asymptomatic. [id number] 3. On rate control with Metoprolol and on Xarelto. History of Present Illness History of Present Illness Consult date/time: 05/17/22 18:24 Reason For Visit: Acute Resp Failure,CHF Exacerbation,PNA,CKD Narrative: 81 yr old man who is my regular cardiology patient presents to ER with sob. He has a history of diastolic dysfunction, hypertension, dyslipidemia, atrial fibrillation. States around Hilda he noted more edema of legs and had more HERNANDEZ. He reports a 10 pound weight gain and his pulse ox was down to 80%. Then he became more sob progressively. Admits to snoring, wakes up once and has daytime sleepiness. He refused sleep study.? He is limited at walking about 1 block due to fatigue/HERNANDEZ. Denies chest pain, PND, palpitations, dizziness. Cardiovascular Procedures Echo/MUGA:: 05/19/21 Echo: EF 50-55%, mild LVH, e' .09 s/o diastolic dysfunction, mild RV hypokinesis with TAPSE 1.4 cm, mod biatrial enlargement, mod (JEET 1.3 cm2), trace MR. Electrophysiology:: 05/18/21 EKG: Atrial fibrillation at 102 bpm. Review of Systems Constitutional: Constitutional: Reports as per HPI, Denies chills and Denies fever(s) Cardiovascular: Cardiovascular: Reports as per HPI, Denies chest pain, Denies irregular heart rhythm, Reports leg edema and Denies lightheadedness Respiratory: Respiratory: Reports as per HPI and Reports dyspnea Gastrointestinal: Gastrointestinal: Reports as per HPI and Denies abdominal pain Genitourinary: Genitourinary: Reports as per HPI and Denies dysuria Musculoskeletal: Musculoskeletal: Reports as per HPI Neurologic: Reports as per HPI, Denies dizziness and Denies syncope [facility] Past Medical History Medical History Atrial fibrillation CHF (congestive heart failure) HLD (hyperlipidemia) HTN (hypertension) Insomnia Osteoarthritis Surgical History Surgical History History of total knee replacement Family History Family History Father Heart failure Social History Social History Smoking pac
[2022-05-17 20:42] LABS: Add Urine Microscopic? YES; Appearance Urine Clear (Clear); Bilirubin Urine Negative (Negative); Blood Urine 3+ (Negative); Color Urine Yellow (Yellow); Glucose Urine UA Negative (Negative); Ketones Urine Negative (Negative); Leukocyte Esterase Ur Trace LEU/UL (NEGATIVE); Nitrate Urine Negative (Negative); Protein Urine 1+ mg/dL (Negative); Specific Grav Ur 1.015 (1.001-1.035); Urobilinogen Urine 0.2 mg/dL (<2.0)
[2022-05-17 20:49] LABS: Mucus Urine Rare /lpf; RBC Urine >75 /hpf (0-2)
[2022-05-17 20:54] LABS: Creatinine Urine 31.7 mg/dL; Urea Random Urine 219 MG/DL
[2022-05-17 21:15] LABS: Sodium Urine Random 119 meq/L
[2022-05-17] MEDS: TOLNAFTATE 1% POWDER 45 GM BTL 1 APPLIC TOPICAL (21:21)
[2022-05-17 22:01] LABS: Eosinophil Urine None Seen % (None Seen)
[2022-05-17] MEDS: IPRATROPIUM BR 0.02% INH SOLN 0.5 MG/2.5 ML VIAL INHALATION (22:25)
[2022-05-17] MEDS: ALBUTEROL SULFATE NEB 2.5 MG/3 ML INH INHALATION (22:25)
--- NOTE | 2022-05-17 22:32 | PCRCNOTE ---
can not do apnea link tonight due to increased 02 demands. redo on a night when pt is not on HFNC
[2022-05-18] VITALS (16 sets, daily range): BP systolic 94–131; BP diastolic 59–85; PULSE 78–106; RESP 16–20; TEMP 36.4–36.7; O2SAT 91–96
[2022-05-18] MEDS: IPRATROPIUM BR 0.02% INH SOLN 0.5 MG/2.5 ML VIAL INHALATION ×4 (02:27→21:24)
[2022-05-18] MEDS: ALBUTEROL SULFATE NEB 2.5 MG/3 ML INH INHALATION ×4 (02:27→21:24)
[2022-05-18] MEDS: BENZONATATE 100 MG CAPSULE 200 MG PO ×2 (06:57→17:03)
[2022-05-18 07:31] LABS: Alanine Aminotransferase 16 U/L (6-50); Albumin Level 3.8 g/dL (3.5-5.1); Alkaline Phosphatase 62 U/L (38-126); Anion Gap 10 mmol/L (8-16); Aspartate Amino Transferase 30 U/L (17-59); Bilirubin,Total 1.2 mg/dL (0.2-1.3); Blood Urea Nitrogen 57 mg/dL (9-20); Calcium 8.3 mg/dL (8.4-10.2); Carbon Dioxide 31 mmol/L (22-30); Chloride 99 mmol/L (98-107); Estimated CRCL calculation 26 ml/min; Estimated Glomerular Filt Rate 18; Glucose 96 mg/dL (65-110); Magnesium 2.2 mg/dL (1.6-2.3); Potassium 3.9 mmol/L (3.4-5.0); Sodium 140 mmol/L (137-145)
[2022-05-18 07:35] LABS: Basophils Absolute Auto 0.1 K/mm3 (0.0-0.1); Basophils Percent Auto 0.4 % (0.2-1.2); Eosinophils Absolute Auto 0.1 K/mm3 (0-0.3); Hematocrit 28.4 % (42.0-52.0); Hemoglobin 8.9 g/dL (14.0-18.0); Immature Granulocyte Absolute 0.06 K/mm3 (0.00-0.031); Immature Granulocyte Percent A 0.5 % (0-0.5); Lymphocytes Absolute Auto 1.29 K/mm3 (0.9-3.2); Lymphocytes Percent Auto 10.8 % (18.3-44.2); Mean Corpuscular HGB Conc 31.3 g/dl (32-36); Mean Corpuscular Hemoglobin 30.2 pg (26-34); Mean Corpuscular Volume 96.3 fl (80-100); Mean Platelet Volume 9.9 fl (7.4-10.4); Monocytes Absolute Auto 1.1 K/mm3 (0.1-0.6); Monocytes Percent Auto 9.1 % (2.6-8.5); Neutrophils Absolute Auto 9.4 K/mm3 (1.3-6.7); Neutrophils Percent Auto 78.2 % (45.5-73.1); Platelet Count Result 253 k/mm3 (150-375); Red Blood Count 2.95 M/mm3 (4.6-6.20); Red Cell Distribution Width 13.1 % (11.5-14.5)
--- NOTE | 2022-05-18 07:45 | PM.PNCARD ---
Progress Note: A&P Assessment and Plan (1) Acute exacerbation of congestive heart failure: Qualifiers: Heart failure type: unspecified Qualified Code(s): I50.9 - Heart failure, unspecified Code(s): I50.9 - Heart failure, unspecified Status: Acute Assessment and Plan: Acute on chronic diastolic heart failure. NTproBNP 12,100. 05/17/21 Echo: EF 65-70%, diastolic dysfunction with E/e' 10, mod RVE/hypokinesis, severe biatrial enlargement, mod (JEET 1.4 cm2), mild MR, trace TR, RVSP 46 mmHg. Appears euvolemic. Change Lasix 40 mg IV BID to 40 mg PO daily. Limit free water intake to 1.5 liters per day. Monitor electrolytes and renal function. (2) Pneumonia: Qualifiers: Laterality: right Lung location: unspecified part of lung Pneumonia type: due to unspecified organism Qualified Code(s): J18.9 - Pneumonia, unspecified organism Code(s): J18.9 - Pneumonia, unspecified organism Status: Acute Assessment and Plan: On antibiotics as per hospitalist. CXR shows extensive right lung opacities. Need to merge his 2 charts together, he has a lot of history including lab results in first chart. Discussed with loan secretary and RN on 3 [employer]. (3) HLD (hyperlipidemia): Code(s): E78.5 - Hyperlipidemia, unspecified Status: Acute Assessment and Plan: On Fish Oil. (4) HTN (hypertension): Code(s): I10 - Essential (primary) hypertension Status: Acute Assessment and Plan: Stable to low normal. Discontinue Amlodipine. (5) Atrial fibrillation: Qualifiers: Atrial fibrillation type: unspecified Qualified Code(s): I48.91 - Unspecified atrial fibrillation Code(s): I48.91 - Unspecified atrial fibrillation Status: Acute Assessment and Plan: Asymptomatic. [id number] 3. On rate control with Metoprolol and on Xarelto. Subjective Date/time seen: 05/18/22 07:45 Interval history: Reports coughing last night. No chest pain or sob now. Exam Const: General: cooperative, healthy appearing, comfortable and obese Nutritional Appearance: obese Orientation/consciousness: oriented to person, oriented to place and oriented to time Resp: Auscultation: no crackles, no rales, no rhonchi, no wheezes and diminished lung sounds Cardio: Rate: regular rate Rhythm: abnormal rhythm Heart sounds: no murmurs Peripheral pulses: dorsalis pedis present Neuro: General: oriented to person, oriented to place and oriented to time Extrem: Right lower extremity: edema Left lower extremity: edema Other: Mild edema of both legs Objective Data Vital Signs Vital Signs: Vital Signs - 24 hr 05/17/22 10:00 05/17/22 10:16 05/17/22 08:00 Temperature Pulse Rate 83 Respiratory Rate Blood Pressure Pulse Oximetry Oxygen Delivery High Flow Nasal Cannula High Flow Therapy with Na Oxygen Flow Rate 6 6 05/17/22 12:00 05/17/22 15:00 05/17/22 16:00 Temperature 98.0 F Pulse Rate 83 77 80 Respiratory Rate 20 Blood Pressure 111/77 Pulse Oximetry 94 Oxygen Delivery Oxygen Flow Rate 05/17/22 22:23 05/17/22 22:29 05/17/22 22:32 Temperature 97.6 F Pulse Rate 93 85 Respiratory Rate 18 16 Blood Pressure 129/91 H Pulse Oximetry 93 93 Oxygen Delivery High Flow Nasal Cannula Oxygen Flow Rate 6 05/17/22 22:38 05/18/22 02:28 05/17/22 22:30 Temperature Pulse Rate 86 94 93 Respiratory Rate 16 16 Blood Pressure Pulse Oximetry Oxygen Delivery Oxygen Flow Rate 05/17/22 20:50 05/18/22 05:12 05/17/22 20:00 Temperature 97.6 F Pulse Rate 90 81 Respiratory Rate 18 Blood Pressure 94/60 L Pulse Oximetry 93 91 Oxygen Delivery High Flow Nasal Cannula Oxygen Flow Rate 6 05/18/22 00:00 05/18/22 06:01 Temperature Pulse Rate 81 106 H Respiratory Rate Blood Pressure Pulse Oximetry Oxygen Delivery Oxygen Flow Rate Intake/Output Intake/Output:
[2022-05-18] MEDS: METOPROLOL TARTRATE 50 MG TAB PO ×2 (09:25→21:18)
[2022-05-18] MEDS: TOLNAFTATE 1% POWDER 45 GM BTL 1 APPLIC TOPICAL ×2 (09:25→21:18)
[2022-05-18] MEDS: FAMOTIDINE 20 MG TABLET PO ×2 (09:25→16:48)
[2022-05-18] MEDS: FUROSEMIDE 40 MG TABLET PO (09:25)
[2022-05-18] MEDS: LORATADINE 10 MG TABLET PO (09:25)
--- NOTE | 2022-05-18 11:00 | PM.CNNEP ---
Assessment and Plan Assessment and plan (1) RAMIRO (acute kidney injury): Code(s): N17.9 - Acute kidney failure, unspecified Status: Acute Assessment and Plan: etiology? given trend of labs in the last few months, possible CKD progression(?) [see #2] however, CHF and pneumonia could be partly to blame urine electrolytes (FeNa and FeUrea) are non-prerenal follow-on renal ultrasound follow repeat labs and UOP (2) Chronic kidney disease, stage IV (severe): Code(s): N18.4 - Chronic kidney disease, stage 4 (severe) Status: Chronic Assessment and Plan: since 2018, creatinine has been running ~ 1.4 - 1.7mg/dl however, in July 2021, it increased to 1.93mg/dl then, in March 2022, it was 2.32mg/dl element of kidney disease progression(?) presumably due to HTN, vascular disease/CHF, and age (3) Acute exacerbation of congestive heart failure: Qualifiers: Heart failure type: unspecified Qualified Code(s): I50.9 - Heart failure, unspecified Code(s): I50.9 - Heart failure, unspecified Status: Acute Assessment and Plan: Cardiology following switching to oral diuretics today continue fluid restriction follow I/Os, daily weights, and respiratory status (4) Pneumonia: Qualifiers: Laterality: right Lung location: unspecified part of lung Pneumonia type: due to unspecified organism Qualified Code(s): J18.9 - Pneumonia, unspecified organism Code(s): J18.9 - Pneumonia, unspecified organism Status: Acute Assessment and Plan: as suspected by admission imaging on antibiotics follow culture data (5) HTN (hypertension): Code(s): I10 - Essential (primary) hypertension Status: Chronic Assessment and Plan: reasonable control at this time follow trend of hemodynamics (6) Anemia: Code(s): D64.9 - Anemia, unspecified Status: Chronic Assessment and Plan: likely due to CKD +/- RAMIRO and acute illness follow trend of H/H Extensive discussion (> 20 minutes) with patient regarding his renal failure and attempt to determine if there is reversible cause to his current renal function or if this is progression of disease; he is aware of what dialysis is as his father was on dialysis treatments before he . Will continue to follow. History of Present Illness Reason for Consult Consult date: 05/18/22 Reason for consult: acute renal failure (on chronic kidney disease) Chief Complaint Chief complaint: Acute Resp Failure,CHF Exacerbation,PNA,CKD History of Present Illness Narrative: The patient is an 81-year-old male with a past medical history as outlined below who presented to [facility] Emergency room with complaints of shortness of breath. The patient states that his shortness of breath started around Hilda and has progressively gotten worse over since that time. He has ptosis this shortness of breath with a 10 lb weight gain as well. He reports compliance with his diuretic therapy but may have had some dietary indiscretion with regard to his diet. He also makes mention of symptoms of a cough, congestion, and rhinorrhea. His shortness of breath, as already mentioned, progressively worsened until it seemed to be at its worst over the last 2 weeks which prompted his ER visit. Workup and evaluation emergency room demonstrated the patient to be hypoxic at 80% on room air but his oxygenation improved to 90% with application of supplemental oxygen but he required almost 6 L to do so. Routine blood test were significant for worsening renal insufficiency/chronic kidney disease in comparison to his baseline as well as a chest x-ray that was consistent with right-sided opacities concerning for pneumonia and or edema. It was felt that his symptoms related to his CHF exacerbation possibly worsened by pneumonia in conjunction with his acute kidney injury on top of h
[2022-05-18] MEDS: ACIDOPHILUS/BULGARICUS CHEWABLE TABLET 2 TABLET BY MOUTH (13:44)
[2022-05-18] MEDS: MULTIVITAMINS /C LUTEIN (CENTRUM SILVER) TABLET *BKC 1 TAB PO (13:44)
[2022-05-18] MEDS: OMEGA 3 POLYUNSAT FATTY ACIDS 1 GM CAP PO (13:44)
--- NOTE | 2022-05-18 16:43 | PM.IMPN ---
Progress Note: A&P Assessment and Plan (1) Acute exacerbation of congestive heart failure: Qualifiers: Heart failure type: unspecified Qualified Code(s): I50.9 - Heart failure, unspecified Code(s): I50.9 - Heart failure, unspecified Status: Acute (2) Acute respiratory failure with hypoxia: Code(s): J96.01 - Acute respiratory failure with hypoxia Status: Acute Plan # acute on chronic congestive heart failure: Echo with normal ejection fraction. 65-70%. Moderate aortic valve stenosis mild pulmonary hypertension noted atrial fibrillation. Diuresis with 40 mg IV b.i.d. as ordered. Watch renal function with diuresis. Cardiology consultation. Lasix switched to oral. # acute hypoxic respiratory failure -patient reports increased swelling lower extremities, pitting edema, 10 lb weight gain -echocardiogram with diastolic dysfunction -possible pneumonia seen on chest x-ray right lung opacities, more likely related to fluid overload as his cough is nonproductive, will continue antibiotics Rocephin and azithromycin. Will procalcitonin 0.3. Mild leukocytosis present. Will continue antibiotics treat for possible pneumonia. -diuresis with Lasix IV 40 mg b.i.d., patient takes Lasix 20 mg daily dose at home -patient was 80% on room air, acute hypoxic respiratory failure improved with supplemental oxygen 6 L on nasal cannula, will wean as tolerated [place] [address] [place] chest ordered for further evaluation: Airspace and ground-glass opacities increased deep evening in the right lung with perihilar predominance. Patchy ground-glass opacities in the left lung. Diffuse moves septal thickening in the lungs. Small pleural effusion right worse than the left. Along with cardiomegaly. Liver surface nodular suspicious for cirrhosis. Suggest moderate pulmonary edema. # renal insufficiency creatinine of 3.2. Unknown baseline. Renal ultrasound negative for hydronephrosis. Urinalysis with hematuria and pus cells suggestive of ATN like picture. Urine eosinophil. Renal consultation. Discussed with Nephrology. Baseline creatinine from last year around high 1s to low 2s. # hypertension home medication # moderate aortic stenosis # right ventricular dysfunction will check ApneaLink which could not be done due to increased oxygen requirement # hyperlipidemia # Atrial fibrillation on Xarelto rate controlled. Continue metoprolol b.i.d. # diet heart healthy with 2 L fluid restriction # DVT prophylaxis on Xarelto # code status full code Subjective Date/time seen: 05/18/22 16:43 Interval history: Feels about the same. Oxygen requirement is about the same. Cough is present without expectoration. No fever chills. Discussed with tomato paste maker. Review of Systems Review of Systems: All systems reviewed & are unremarkable except as noted in HPI and below Exam Narrative: GENERAL:? Pleasant elderly male in no acute distress. Alert and oriented x3 EYES: EOMI. Anicteric. HENT: Moist mucous membranes. LUNGS: Coarse breath sounds bilaterally, no wheezing, rhonchi.? Breathing comfortably on 6 L oxygen via nasal cannula CARDIOVASCULAR: Regular rate and rhythm. No murmur. No JVD. ABDOMEN: Soft, non-tender and non-distended. No palpable masses. EXTREMITIES:? 3+ pitting edema lower extremities bilateral.? Peripheral pulses 2+. Non-tender. NEUROLOGIC: No focal neurological deficits. CN II-XII grossly intact. PSYCHIATRIC: Awake, Alert and oriented x 3. Appropriate mood and affect. SKIN: No rashes or lesions. Warm. LYMPH: No cervical lymphadenopathy. Objective Data Vital Signs Vital Signs: Vital Signs - 24 hr 05/17/22 22:23 05/17/22 22:29 05/17/22 22:32 Temperature 97.6 F Pulse Rate 93 85 Respiratory Rate 18 16 Blood Pressure 129/91 H Pulse Oximetry 93 93 Oxygen Delivery High Flow Nasal Cannula Oxygen Flow Rate 6 05/17/22 22:38 05/18/22 02:28 05/17/22 22:30 Temperature Pulse
[2022-05-18] MEDS: RIVAROXABAN 15 MG TABLET PO (16:48)
[2022-05-18] MEDS: traMADol HCL (*CRX) 50 MG TABLET PO (16:48)
[2022-05-19] VITALS (20 sets, daily range): BP systolic 96–138; BP diastolic 60–93; PULSE 60–110; RESP 17–20; TEMP 36.1–36.6; O2SAT 93–99
[2022-05-19] MEDS: BENZONATATE 100 MG CAPSULE 200 MG PO ×3 (00:26→21:39)
[2022-05-19] MEDS: IPRATROPIUM BR 0.02% INH SOLN 0.5 MG/2.5 ML VIAL INHALATION ×4 (02:21→21:25)
[2022-05-19] MEDS: ALBUTEROL SULFATE NEB 2.5 MG/3 ML INH INHALATION ×4 (02:21→21:25)
[2022-05-19 06:23] LABS: Basophils Percent Auto 0.4 % (0.2-1.2); Eosinophils Absolute Auto 0.3 K/mm3 (0-0.3); Eosinophils Percent Auto 2.8 % (0-4.4); Hematocrit 27.2 % (42.0-52.0); Hemoglobin 8.3 g/dL (14.0-18.0); Immature Granulocyte Absolute 0.04 K/mm3 (0.00-0.031); Immature Granulocyte Percent A 0.4 % (0-0.5); Lymphocytes Absolute Auto 1.01 K/mm3 (0.9-3.2); Lymphocytes Percent Auto 9.4 % (18.3-44.2); Mean Corpuscular HGB Conc 30.5 g/dl (32-36); Mean Corpuscular Hemoglobin 30.4 pg (26-34); Mean Corpuscular Volume 99.6 fl (80-100); Mean Platelet Volume 9.5 fl (7.4-10.4); Monocytes Percent Auto 9.5 % (2.6-8.5); Neutrophils Absolute Auto 8.4 K/mm3 (1.3-6.7); Neutrophils Percent Auto 77.5 % (45.5-73.1); Platelet Count Result 212 k/mm3 (150-375); Red Blood Count 2.73 M/mm3 (4.6-6.20); Red Cell Distribution Width 13.2 % (11.5-14.5); White Blood Count 10.8 K/mm3 (4.5-10.0)
[2022-05-19 06:41] LABS: Alanine Aminotransferase 16 U/L (6-50); Albumin Level 3.3 g/dL (3.5-5.1); Alkaline Phosphatase 54 U/L (38-126); Anion Gap 6 mmol/L (8-16); Aspartate Amino Transferase 25 U/L (17-59); Bilirubin,Total 1.2 mg/dL (0.2-1.3); Blood Urea Nitrogen 62 mg/dL (9-20); Calcium 7.9 mg/dL (8.4-10.2); Carbon Dioxide 29 mmol/L (22-30); Chloride 98 mmol/L (98-107); Estimated CRCL calculation 26 ml/min; Estimated Glomerular Filt Rate 19; Glucose 92 mg/dL (65-110); Magnesium 2.1 mg/dL (1.6-2.3); Potassium 3.8 mmol/L (3.4-5.0); Sodium 133 mmol/L (137-145)
[2022-05-19] MEDS: FAMOTIDINE 20 MG TABLET PO ×2 (08:04→17:00)
[2022-05-19] MEDS: LORATADINE 10 MG TABLET PO (08:04)
[2022-05-19] MEDS: FUROSEMIDE 40 MG TABLET PO (08:04)
[2022-05-19] MEDS: OMEGA 3 POLYUNSAT FATTY ACIDS 1 GM CAP PO (08:04)
[2022-05-19] MEDS: ACIDOPHILUS/BULGARICUS CHEWABLE TABLET 2 TABLET BY MOUTH (08:04)
[2022-05-19] MEDS: MULTIVITAMINS /C LUTEIN (CENTRUM SILVER) TABLET *BKC 1 TAB PO (08:04)
[2022-05-19] MEDS: METOPROLOL TARTRATE 50 MG TAB PO ×2 (08:04→21:35)
[2022-05-19] MEDS: TOLNAFTATE 1% POWDER 45 GM BTL 1 APPLIC TOPICAL ×2 (08:05→22:41)
--- NOTE | 2022-05-19 08:08 | PM.PNCARD ---
Progress Note: A&P Assessment and Plan (1) Acute exacerbation of congestive heart failure: Qualifiers: Heart failure type: unspecified Qualified Code(s): I50.9 - Heart failure, unspecified Code(s): I50.9 - Heart failure, unspecified Status: Acute Assessment and Plan: Acute on chronic diastolic heart failure. NTproBNP 12,100. 05/17/21 Echo: EF 65-70%, diastolic dysfunction with E/e' 10, mod RVE/hypokinesis, severe biatrial enlargement, mod (JEET 1.4 cm2), mild MR, trace TR, RVSP 46 mmHg. Appears euvolemic. On Lasix 40 mg PO daily. Limit free water intake to 1.5 liters per day. Monitor electrolytes and renal function. (2) Pneumonia: Qualifiers: Laterality: right Lung location: unspecified part of lung Pneumonia type: due to unspecified organism Qualified Code(s): J18.9 - Pneumonia, unspecified organism Code(s): J18.9 - Pneumonia, unspecified organism Status: Acute Assessment and Plan: On antibiotics as per hospitalist. CXR shows extensive right lung opacities. Need to merge his 2 charts together, he has a lot of history including lab results in first chart. Discussed with audio visual secretary and RN on 3 MedSurg. (3) HLD (hyperlipidemia): Code(s): E78.5 - Hyperlipidemia, unspecified Status: Acute Assessment and Plan: On Fish Oil. (4) HTN (hypertension): Code(s): I10 - Essential (primary) hypertension Status: Chronic Assessment and Plan: Stable to low normal. Discontinue Amlodipine. (5) Atrial fibrillation: Qualifiers: Atrial fibrillation type: unspecified Qualified Code(s): I48.91 - Unspecified atrial fibrillation Code(s): I48.91 - Unspecified atrial fibrillation Status: Acute Assessment and Plan: Asymptomatic. [id number] 3. On rate control with Metoprolol and on Xarelto. If has significant hemoptysis would hold Xarelto. Subjective Date/time seen: 05/19/22 08:08 Interval history: Reports coughing last night and had a tinge of blood from it. No chest pain or sob now. Exam Const: General: cooperative, healthy appearing, comfortable and obese Nutritional Appearance: obese Orientation/consciousness: oriented to person, oriented to place and oriented to time Resp: Auscultation: no crackles, no rales, no rhonchi, no wheezes and diminished lung sounds Cardio: Rate: regular rate Rhythm: abnormal rhythm Heart sounds: no murmurs Peripheral pulses: dorsalis pedis present Neuro: General: oriented to person, oriented to place and oriented to time Extrem: Right lower extremity: edema Left lower extremity: edema Other: Mild edema of both legs Objective Data Vital Signs Vital Signs: Vital Signs - 24 hr 05/18/22 08:35 05/18/22 08:35 05/18/22 08:43 Temperature Pulse Rate 89 89 84 Respiratory Rate 16 16 Blood Pressure Pulse Oximetry 95 Oxygen Delivery Nasal Cannula Oxygen Flow Rate 6 05/18/22 12:00 05/18/22 14:55 05/18/22 15:04 Temperature Pulse Rate 78 86 88 Respiratory Rate 16 16 Blood Pressure Pulse Oximetry Oxygen Delivery Oxygen Flow Rate 05/18/22 15:24 05/18/22 16:00 05/18/22 21:18 Temperature 98.1 F Pulse Rate 78 83 89 Respiratory Rate 16 Blood Pressure 102/59 L Pulse Oximetry 96 Oxygen Delivery Oxygen Flow Rate 05/18/22 21:24 05/18/22 21:24 05/18/22 21:50 Temperature 97.6 F Pulse Rate 103 H 88 Respiratory Rate 18 20 Blood Pressure 131/85 Pulse Oximetry 91 96 Oxygen Delivery High Flow Nasal Cannula Oxygen Flow Rate 6 05/19/22 02:21 05/18/22 21:34 05/18/22 20:00 Temperature Pulse Rate 91 104 H 84 Respiratory Rate 18 18 Blood Pressure Pulse Oximetry Oxygen Delivery Oxygen Flow Rate 05/19/22 00:00 05/19/22 02:34 05/19/22 04:00 Temperature Pulse Rate 87 93 85 Respiratory Rate 18 Blood Pressure Pulse Oximetry Oxygen Delivery Oxygen Flow Rate 01/0
--- NOTE | 2022-05-19 15:30 | PM.PNNEP ---
Progress Note: A&P Assessment and Plan (1) RAMIRO (acute kidney injury): Code(s): N17.9 - Acute kidney failure, unspecified Status: Acute Assessment and Plan: given trend of labs in the last few months, possible CKD progression(?) [see #2] however, CHF and pneumonia could be partly to blame urine electrolytes (FeNa and FeUrea) are non-prerenal renal ultrasound normal follow repeat labs and UOP (2) Chronic kidney disease, stage IV (severe): Code(s): N18.4 - Chronic kidney disease, stage 4 (severe) Status: Chronic Assessment and Plan: since 2018, creatinine has been running ~ 1.4 - 1.7mg/dl however, in July 2021, it increased to 1.93mg/dl then, in March 2022, it was 2.32mg/dl element of kidney disease progression(?) presumably due to HTN, vascular disease/CHF, and age (3) Acute exacerbation of congestive heart failure: Qualifiers: Heart failure type: unspecified Qualified Code(s): I50.9 - Heart failure, unspecified Code(s): I50.9 - Heart failure, unspecified Status: Acute Assessment and Plan: Cardiology following on oral diuretics today continue fluid restriction follow I/Os, daily weights, and respiratory status (4) Pneumonia: Qualifiers: Laterality: right Lung location: unspecified part of lung Pneumonia type: due to unspecified organism Qualified Code(s): J18.9 - Pneumonia, unspecified organism Code(s): J18.9 - Pneumonia, unspecified organism Status: Acute Assessment and Plan: as suspected by admission imaging on antibiotics follow culture data (5) HTN (hypertension): Code(s): I10 - Essential (primary) hypertension Status: Chronic Assessment and Plan: reasonable control at this time follow trend of hemodynamics (6) Anemia: Code(s): D64.9 - Anemia, unspecified Status: Chronic Assessment and Plan: likely due to CKD +/- RAMIRO and acute illness follow trend of H/H Will continue to follow. Subjective Date/time seen: 05/19/22 15:30 Seems to be doing reasoanably well; renal function is stable but not really any significantly better than on admission; continues to make good urine output with oral diuretic therapy; still with some on/off cough and remains on 6L oxygen by nasal cannula; no apparent distress noted. Exam Narrative: General: WD/WN male in NAD Heart: normal S1 and S2; no rub Lungs: coarse breath sounds Abdomen: soft, nontender, nondistended, positive bowel sounds Extremities: no cyanosis or clubbing; trace edema Skin: warm and intact Objective Data Vital Signs Vital Signs: Vital Signs Temp Pulse Resp BP Pulse Ox O2 Del Method O2 Flow Rate 05/19/22 14:00 97.5 F L 89 18 138/70 99 05/19/22 14:05 81 18 05/19/22 13:50 77 18 05/19/22 12:00 110 H 05/19/22 11:02 91 18 05/19/22 10:54 93 Nasal Cannula 6 05/19/22 10:45 90 18 05/19/22 08:00 70 05/19/22 08:00 93 High Flow Nasal Cannula 6 05/19/22 08:04 88 05/19/22 06:00 97.9 F 83 20 96/60 L 95 05/19/22 04:00 85 05/19/22 02:34 93 18 05/19/22 00:00 87 05/18/22 20:00 84 05/18/22 21:34 104 H 18 05/19/22 02:21 91 18 05/18/22 21:50 97.6 F 88 20 131/85 96 05/18/22 21:24 103 H 18 05/18/22 21:24 91 High Flow Nasal Cannula 6 05/18/22 21:18 89 Intake/Output Intake/Output: Intake & Output 05/16/22 05/17/22 05/18/22 05/19/22 23:59 23:59 23:59 23:59 Intake Total 50 1420 2060 2140 Output Total 2350 2450 950 Balance 50 -930 -390 1190 Meds/Results Medications: Active Medications Generic Name Dose Route Start Last Admin Trade Name Freq PRN Reason Stop Dose Admin Acetaminophen 650 mg 05/16/22 21:09 05/19/22 17:08 Acetaminophen 325 Mg Tablet PO 650 mg Q4H PRN Administration
--- NOTE | 2022-05-19 15:30 | P.PNNP_ITS ---
Progress Note: A&P Assessment and Plan (1) RAMIRO (acute kidney injury): Code(s): N17.9 - Acute kidney failure, unspecified Status: Acute Assessment and Plan: * given trend of labs in the last few months, possible CKD progression(?) [see #2] * however, CHF and pneumonia could be partly to blame * urine electrolytes (FeNa and FeUrea) are non-prerenal * renal ultrasound normal * follow repeat labs and UOP (2) Chronic kidney disease, stage IV (severe): Code(s): N18.4 - Chronic kidney disease, stage 4 (severe) Status: Chronic Assessment and Plan: * since 2019, creatinine has been running ~ 1.4 - 1.7mg/dl * however, in July 2021, it increased to 1.93mg/dl * then, in March 2022, it was 2.32mg/dl * element of kidney disease progression(?) * presumably due to HTN, vascular disease/CHF, and age (3) Acute exacerbation of congestive heart failure: Qualifiers: Heart failure type: unspecified Qualified Code(s): I50.9 - Heart failure, unspecified Code(s): I50.9 - Heart failure, unspecified Status: Acute Assessment and Plan: * Cardiology following * on oral diuretics today * continue fluid restriction * follow I/Os, daily weights, and respiratory status (4) Pneumonia: Qualifiers: Laterality: right Lung location: unspecified part of lung Pneumonia type: due to unspecified organism Qualified Code(s): J18.9 - Pneumonia, unspecified organism Code(s): J18.9 - Pneumonia, unspecified organism Status: Acute Assessment and Plan: * as suspected by admission imaging * on antibiotics * follow culture data (5) HTN (hypertension): Code(s): I10 - Essential (primary) hypertension Status: Chronic Assessment and Plan: * reasonable control at this time * follow trend of hemodynamics (6) Anemia: Code(s): D64.9 - Anemia, unspecified Status: Chronic Assessment and Plan: * likely due to CKD +/- RAMIRO and acute illness * follow trend of H/H Will continue to follow. Subjective Date/time seen: 05/19/22 15:30 Seems to be doing reasoanably well; renal function is stable but not really any significantly better than on admission; continues to make good urine output with oral diuretic therapy; still with some on/off cough and remains on 6L oxygen by nasal cannula; no apparent distress noted. Exam Narrative: General: WD/WN male in NAD Heart: normal S1 and S2; no rub Lungs: coarse breath sounds Abdomen: soft, nontender, nondistended, positive bowel sounds Extremities: no cyanosis or clubbing; trace edema Skin: warm and intact Objective Data Vital Signs Vital Signs: Vital Signs Temp Pulse Resp BP Pulse Ox O2 Del Method O2 Flow Rate 05/19/22 14:00 97.5 F L 89 18 138/70 99 05/19/22 14:05 81 18 05/19/22 13:50 77 18 05/19/22 12:00 110 H 05/19/22 11:02 91 18 05/19/22 10:54 93 Nasal Cannula 6 05/19/22 10:45 90 18 05/19/22 08:00 70 05/19/22 08:00 93 High Flow Nasal Cannula 6 05/19/22 08:04 88 05/19/22 06:00 97.9 F 83 20 96/60 L 95 05/19/22 04:00 85 05/19/22 02:34 93 18 05/19/22 00:00 87 05/18/22 20:00 84 05/18/22 21:3
[2022-05-19] MEDS: RIVAROXABAN 15 MG TABLET PO (17:00)
[2022-05-19] MEDS: ACETAMINOPHEN 325 MG TABLET 650 MG PO ×2 (17:08→21:38)
--- NOTE | 2022-05-19 18:06 | PM.IMPN ---
Progress Note: A&P Assessment and Plan (1) Acute exacerbation of congestive heart failure: Qualifiers: Heart failure type: unspecified Qualified Code(s): I50.9 - Heart failure, unspecified Code(s): I50.9 - Heart failure, unspecified Status: Acute (2) Acute respiratory failure with hypoxia: Code(s): J96.01 - Acute respiratory failure with hypoxia Status: Acute Plan # acute on chronic congestive heart failure: Echo with normal ejection fraction. 65-70%. Moderate aortic valve stenosis mild pulmonary hypertension noted atrial fibrillation. Diuresis with 40 mg IV b.i.d. as ordered. Watch renal function with diuresis. Cardiology consultation. Lasix switched to oral. # acute hypoxic respiratory failure -patient reports increased swelling lower extremities, pitting edema, 10 lb weight gain -echocardiogram with diastolic dysfunction -possible pneumonia seen on chest x-ray right lung opacities, more likely related to fluid overload as his cough is nonproductive, will continue antibiotics Rocephin and azithromycin. Will continue antibiotics treat for possible pneumonia. -diuresis with Lasix IV 40 mg b.i.d., f/u procalcitonin -patient was 80% on room air, acute hypoxic respiratory failure improved with supplemental oxygen 6 L on nasal cannula, will wean as tolerated [place] [address] [address] chest ordered for further evaluation: Airspace and ground-glass opacities increased deep evening in the right lung with perihilar predominance. Patchy ground-glass opacities in the left lung. Diffuse moves septal thickening in the lungs. Small pleural effusion right worse than the left. Along with cardiomegaly. Liver surface nodular suspicious for cirrhosis. Suggest moderate pulmonary edema. # renal insufficiency creatinine high and stable Unknown baseline. Renal ultrasound negative for hydronephrosis. Urinalysis with hematuria and pus cells suggestive of ATN like picture. Urine eosinophil. f/u Renal consultation. Discussed with Nephrology. Baseline creatinine from last year around high 1s to low 2s. # hypertension home medication # moderate aortic stenosis # right ventricular dysfunction will check ApneaLink which could not be done due to increased oxygen requirement # hyperlipidemia # Atrial fibrillation on Xarelto rate controlled. Continue metoprolol b.i.d. # diet heart healthy with 2 L fluid restriction # DVT prophylaxis on Xarelto # code status full code Subjective Date/time seen: 05/19/22 18:06 Saw and examined patient today. Patient feels dyspnea is improving, denies chest pain, palpitation, evident pain, nausea vomiting diarrhea. Patient also denies dysuria, urinary urgency frequency.. Interval history: Reports coughing last night and had a tinge of blood from it. No chest pain or sob now. Exam Narrative: GENERAL:? Pleasant elderly male in no acute distress. Alert and oriented x3 EYES: EOMI. Anicteric. HENT: Moist mucous membranes. LUNGS: Coarse breath sounds bilaterally, no wheezing, rhonchi.? Breathing comfortably on 6 L oxygen via nasal cannula CARDIOVASCULAR: Regular rate and rhythm. No murmur. No JVD. ABDOMEN: Soft, non-tender and non-distended. No palpable masses. EXTREMITIES:? 3+ pitting edema lower extremities bilateral.? Peripheral pulses 2+. Non-tender. NEUROLOGIC: No focal neurological deficits. CN II-XII grossly intact. PSYCHIATRIC: Awake, Alert and oriented x 3. Appropriate mood and affect. SKIN: No rashes or lesions. Warm. LYMPH: No cervical lymphadenopathy. Objective Data Vital Signs Vital Signs: Vital Signs - 24 hr 05/18/22 21:18 05/18/22 21:24 05/18/22 21:24 Temperature Pulse Rate 89 103 H Respiratory Rate 18 Blood Pressure Pulse Oximetry 91 Oxygen Delivery High Flow Nasal Cannula Oxygen Flow Rate 6 05/18/22 21:50 05/19/22 02:21 05/18/22 21:34 Temperature 97.6 F Pulse Rate 88 91 104 H Respiratory Rate 20 18 18 B
[2022-05-20] VITALS (21 sets, daily range): BP systolic 107–126; BP diastolic 85–96; PULSE 71–96; RESP 15–20; TEMP 35.9–36.6; O2SAT 87–100
[2022-05-20] MEDS: IPRATROPIUM BR 0.02% INH SOLN 0.5 MG/2.5 ML VIAL INHALATION ×3 (02:57→22:18)
[2022-05-20] MEDS: ALBUTEROL SULFATE NEB 2.5 MG/3 ML INH INHALATION ×3 (02:57→22:18)
[2022-05-20 06:45] LABS: Anion Gap 5 mmol/L (8-16); Blood Urea Nitrogen 62 mg/dL (9-20); Calcium 7.8 mg/dL (8.4-10.2); Carbon Dioxide 32 mmol/L (22-30); Chloride 100 mmol/L (98-107); Estimated CRCL calculation 25 ml/min; Estimated Glomerular Filt Rate 17; Glucose 92 mg/dL (65-110); Potassium 3.9 mmol/L (3.4-5.0); Sodium 137 mmol/L (137-145)
[2022-05-20 07:16] LABS: Procalcitonin 0.3 ng/mL
--- NOTE | 2022-05-20 07:51 | PM.PNCARD ---
Progress Note: A&P Assessment and Plan (1) Acute exacerbation of congestive heart failure: Qualifiers: Heart failure type: unspecified Qualified Code(s): I50.9 - Heart failure, unspecified Code(s): I50.9 - Heart failure, unspecified Status: Acute Assessment and Plan: Acute on chronic diastolic heart failure. NTproBNP 12,100. 05/17/21 Echo: EF 65-70%, diastolic dysfunction with E/e' 10, mod RVE/hypokinesis, severe biatrial enlargement, mod (JEET 1.4 cm2), mild MR, trace TR, RVSP 46 mmHg. Appears euvolemic. On Lasix 40 mg PO daily. Limit free water intake to 1.5 liters per day. Monitor electrolytes and renal function. (2) Pneumonia: Qualifiers: Laterality: right Lung location: unspecified part of lung Pneumonia type: due to unspecified organism Qualified Code(s): J18.9 - Pneumonia, unspecified organism Code(s): J18.9 - Pneumonia, unspecified organism Status: Acute Assessment and Plan: On antibiotics as per hospitalist. CXR shows extensive right lung opacities. Need to merge his 2 charts together, he has a lot of history including lab results in first chart. Discussed with certified legal secretary specialist and RN on 3 MedSurg. (3) HLD (hyperlipidemia): Code(s): E78.5 - Hyperlipidemia, unspecified Status: Acute Assessment and Plan: On Fish Oil. (4) HTN (hypertension): Code(s): I10 - Essential (primary) hypertension Status: Chronic Assessment and Plan: Stable. (5) Atrial fibrillation: Qualifiers: Atrial fibrillation type: unspecified Qualified Code(s): I48.91 - Unspecified atrial fibrillation Code(s): I48.91 - Unspecified atrial fibrillation Status: Acute Assessment and Plan: Asymptomatic. [id number] 3. On rate control with Metoprolol and on Xarelto. If has significant hemoptysis would hold Xarelto. Subjective Date/time seen: 05/20/22 07:51 Interval history: Reports coughing last night and had a tinge of blood from it. No chest pain or sob now. Exam Const: General: cooperative, healthy appearing, comfortable and obese Nutritional Appearance: obese Orientation/consciousness: oriented to person, oriented to place and oriented to time Resp: Auscultation: no crackles, no rales, no rhonchi, no wheezes and diminished lung sounds Cardio: Rate: regular rate Rhythm: abnormal rhythm Heart sounds: no murmurs Peripheral pulses: dorsalis pedis present Neuro: General: oriented to person, oriented to place and oriented to time Extrem: Right lower extremity: edema Left lower extremity: edema Other: Mild edema of both legs Objective Data Vital Signs Vital Signs: Vital Signs - 24 hr 05/19/22 08:04 05/19/22 08:00 05/19/22 08:00 Temperature Pulse Rate 88 70 Pulse Rate [Monitor] Respiratory Rate Blood Pressure Pulse Oximetry 93 Oxygen Delivery High Flow Nasal Cannula Oxygen Flow Rate 6 Fraction of Inspired Oxygen 05/19/22 10:45 05/19/22 10:54 05/19/22 11:02 Temperature Pulse Rate 90 91 Pulse Rate [Monitor] Respiratory Rate 18 18 Blood Pressure Pulse Oximetry 93 Oxygen Delivery Nasal Cannula Oxygen Flow Rate 6 Fraction of Inspired Oxygen 05/19/22 12:00 05/19/22 13:50 05/19/22 14:05 Temperature Pulse Rate 110 H 77 81 Pulse Rate [Monitor] Respiratory Rate 18 18 Blood Pressure Pulse Oximetry Oxygen Delivery Oxygen Flow Rate Fraction of Inspired Oxygen 05/19/22 14:00 05/19/22 16:00 05/19/22 18:32 Temperature 97.5 F L Pulse Rate 89 60 Pulse Rate [Monitor] 80 Respiratory Rate 18 Blood Pressure 138/70 Pulse Oximetry 99 Oxygen Delivery Oxygen Flow Rate Fraction of Inspired Oxygen 05/19/22 21:25 05/19/22 21:43 05/19/22 20:00 Temperature Pulse Rate 92 96 Pulse Rate [Monitor] 80 Respiratory Rate 20 17 Blood Pressure Pulse Oximetry Oxygen Delivery Oxygen Flow Rate Fraction
[2022-05-20] MEDS: ACIDOPHILUS/BULGARICUS CHEWABLE TABLET 2 TABLET BY MOUTH (09:23)
[2022-05-20] MEDS: OMEGA 3 POLYUNSAT FATTY ACIDS 1 GM CAP PO (09:23)
[2022-05-20] MEDS: FUROSEMIDE 40 MG TABLET PO (09:23)
[2022-05-20] MEDS: LORATADINE 10 MG TABLET PO (09:23)
[2022-05-20] MEDS: TOLNAFTATE 1% POWDER 45 GM BTL 1 APPLIC TOPICAL ×2 (09:23→20:28)
[2022-05-20] MEDS: METOPROLOL TARTRATE 50 MG TAB PO ×2 (09:23→20:27)
[2022-05-20] MEDS: FAMOTIDINE 20 MG TABLET PO ×2 (09:23→17:14)
[2022-05-20] MEDS: MULTIVITAMINS /C LUTEIN (CENTRUM SILVER) TABLET *BKC 1 TAB PO (09:23)
[2022-05-20 11:48] LABS: Glucose Point of Care 147 mg/dl (65-105)
[2022-05-20] MEDS: BENZONATATE 100 MG CAPSULE 200 MG PO (12:45)
--- NOTE | 2022-05-20 13:06 | P.PNNP_ITS ---
Progress Note: A&P Assessment and Plan (1) RAMIRO (acute kidney injury): Code(s): N17.9 - Acute kidney failure, unspecified Status: Acute Assessment and Plan: * given trend of labs in the last few months, suspect CKD progression rather than RAMIRO (see #2) * however, CHF and pneumonia could be partly to blame * urine electrolytes (FeNa and FeUrea) are non-prerenal * renal ultrasound normal * follow repeat labs and UOP (2) Chronic kidney disease, stage IV (severe): Code(s): N18.4 - Chronic kidney disease, stage 4 (severe) Status: Chronic Assessment and Plan: * since 2019, creatinine has been running ~ 1.4 - 1.7mg/dl * however, in July 2021, it increased to 1.93mg/dl * then, in March 2022, it was 2.32mg/dl * element of kidney disease progression seems a possibility * presumably due to HTN, vascular disease/CHF, and age (3) Acute exacerbation of congestive heart failure: Qualifiers: Heart failure type: unspecified Qualified Code(s): I50.9 - Heart failure, unspecified Code(s): I50.9 - Heart failure, unspecified Status: Acute Assessment and Plan: * Cardiology following * on oral diuretics * continue fluid restriction * follow I/Os, daily weights, and respiratory status (4) Pneumonia: Qualifiers: Laterality: right Lung location: unspecified part of lung Pneumonia type: due to unspecified organism Qualified Code(s): J18.9 - Pneumonia, unspecified organism Code(s): J18.9 - Pneumonia, unspecified organism Status: Acute Assessment and Plan: * as suspected by admission imaging * on antibiotics * wean oxygen as tolerated * follow culture data (5) HTN (hypertension): Code(s): I10 - Essential (primary) hypertension Status: Chronic Assessment and Plan: * reasonable control at this time * follow trend of hemodynamics (6) Anemia: Code(s): D64.9 - Anemia, unspecified Status: Chronic Assessment and Plan: * likely due to CKD +/- RAMIRO and acute illness * follow trend of H/H Will continue to follow. Subjective Date/time seen: 05/20/22 13:06 No new issues or problems voiced at this time; breathing/respiratory status appears stable if not better but he is still requiring significant supplemental oxygen support currently; no other acute issues voiced; still with some on/off coughing; no acute distress. Exam Narrative: General: WD/WN male in NAD Heart: normal S1 and S2; no rub Lungs: coarse breath sounds Abdomen: soft, nontender, nondistended, positive bowel sounds Extremities: no cyanosis or clubbing; trace edema Skin: warm and intact Objective Data Vital Signs Vital Signs: Vital Signs Temp Pulse Pulse Resp BP Pulse Ox O2 Del Method 05/20/22 08:27 88 20 05/20/22 08:19 88 16 05/20/22 08:19 99 Nasal Cannula 05/20/22 06:00 96.6 F L 75 16 126/85 100 05/19/22 20:00 74 05/20/22 04:00 71 05/20/22 00:00 71 05/20/22 03:23 92 Nasal Cannula 05/20/22 03:22 83 16 05/20/22 02:59 85 15 05/19/22 22:00 96.9 F L 83 20 133/93 H 96 05/19/22 20:00 Room Air 05/19/22 20:00 80 05/19/22 21:43 96 17 05/19/22 21:25 92 20
--- NOTE | 2022-05-20 13:06 | PM.PNNEP ---
Progress Note: A&P Assessment and Plan (1) RAMIRO (acute kidney injury): Code(s): N17.9 - Acute kidney failure, unspecified Status: Acute Assessment and Plan: given trend of labs in the last few months, suspect CKD progression rather than RAMIRO (see #2) however, CHF and pneumonia could be partly to blame urine electrolytes (FeNa and FeUrea) are non-prerenal renal ultrasound normal follow repeat labs and UOP (2) Chronic kidney disease, stage IV (severe): Code(s): N18.4 - Chronic kidney disease, stage 4 (severe) Status: Chronic Assessment and Plan: since 2018, creatinine has been running ~ 1.4 - 1.7mg/dl however, in July 2021, it increased to 1.93mg/dl then, in March 2022, it was 2.32mg/dl element of kidney disease progression seems a possibility presumably due to HTN, vascular disease/CHF, and age (3) Acute exacerbation of congestive heart failure: Qualifiers: Heart failure type: unspecified Qualified Code(s): I50.9 - Heart failure, unspecified Code(s): I50.9 - Heart failure, unspecified Status: Acute Assessment and Plan: Cardiology following on oral diuretics continue fluid restriction follow I/Os, daily weights, and respiratory status (4) Pneumonia: Qualifiers: Laterality: right Lung location: unspecified part of lung Pneumonia type: due to unspecified organism Qualified Code(s): J18.9 - Pneumonia, unspecified organism Code(s): J18.9 - Pneumonia, unspecified organism Status: Acute Assessment and Plan: as suspected by admission imaging on antibiotics wean oxygen as tolerated follow culture data (5) HTN (hypertension): Code(s): I10 - Essential (primary) hypertension Status: Chronic Assessment and Plan: reasonable control at this time follow trend of hemodynamics (6) Anemia: Code(s): D64.9 - Anemia, unspecified Status: Chronic Assessment and Plan: likely due to CKD +/- RAMIRO and acute illness follow trend of H/H Will continue to follow. Subjective Date/time seen: 05/20/22 13:06 No new issues or problems voiced at this time; breathing/respiratory status appears stable if not better but he is still requiring significant supplemental oxygen support currently; no other acute issues voiced; still with some on/off coughing; no acute distress. Exam Narrative: General: WD/WN male in NAD Heart: normal S1 and S2; no rub Lungs: coarse breath sounds Abdomen: soft, nontender, nondistended, positive bowel sounds Extremities: no cyanosis or clubbing; trace edema Skin: warm and intact Objective Data Vital Signs Vital Signs: Vital Signs Temp Pulse Pulse Resp BP Pulse Ox O2 Del Method 05/20/22 08:27 88 20 05/20/22 08:19 88 16 05/20/22 08:19 99 Nasal Cannula 05/20/22 06:00 96.6 F L 75 16 126/85 100 05/19/22 20:00 74 05/20/22 04:00 71 05/20/22 00:00 71 05/20/22 03:23 92 Nasal Cannula 05/20/22 03:22 83 16 05/20/22 02:59 85 15 05/19/22 22:00 96.9 F L 83 20 133/93 H 96 05/19/22 20:00 Room Air 05/19/22 20:00 80 05/19/22 21:43 96 17 05/19/22 21:25 92 20 05/19/22 18:32 80 05/19/22 16:00 60 05/19/22 14:00 97.5 F L 89 18 138/70 99 05/19/22 14:05 81 18 05/19/22 13:50 77 18 Intake/Output Intake/Output: Intake & Output 05/17/22 05/18/22 05/19/22 05/20/22 23:59 23:59 23:59 23:59 Intake Total 1420 2060 2140 380 Output Total 2350 2450 950 1100 Balance -930 -390 1190 -720 Meds/Results Medications: Active Medications Generic Name Dose Route Start Last Admin Trade Name Freq PRN Reason Stop Dose Admin Acetaminophen 650 mg 05/16/22 21:09 05/19/22 21:38 Acetaminophen 325 Mg Tablet PO 650 mg Q4H PRN Administration Mild Pain (1-3) or Fever Al Hydr
--- NOTE | 2022-05-20 13:35 | PM.DS ---
DS: Admitting Diagnosis Discharge Date 05/20/22 Admitting Diagnosis acute respiratory failure, acute CHF, pneumonia DS: Discharge Diagnosis Discharge Diagnosis (1) Acute exacerbation of congestive heart failure: Qualifiers: Heart failure type: unspecified Qualified Code(s): I50.9 - Heart failure, unspecified Code(s): I50.9 - Heart failure, unspecified Status: Acute (2) Acute respiratory failure with hypoxia: Code(s): J96.01 - Acute respiratory failure with hypoxia Status: Acute (3) Atrial fibrillation: Qualifiers: Atrial fibrillation type: unspecified Qualified Code(s): I48.91 - Unspecified atrial fibrillation Code(s): I48.91 - Unspecified atrial fibrillation Status: Acute DS: Summary Hospital Course Reason for hospitalization: acute respiratory failure, acute CHF, pneumonia, RAMIRO and CKD Hospital Course: Patient is an 81-year-old male with past medical history of congestive heart failure, paroxysmal atrial fibrillation on Xarelto, CKD unknown baseline who presents to ED with complaints of shortness of breath.? His symptom onset was around Hilda, patient states he had gained about 10 lb and has known history of heart failure.? He takes Lasix 20 mg daily.? He also had some other symptoms of cough congestion runny nose.? His dyspnea continued to worsen over the course of the last 2 weeks.? On arrival to the ED today his O2 saturation was 80% on room air.? Daughter bedside states patient has been gaining weight and she had not closely follow his diet considering heart failure history. to hospitalization, patient was found to have acute on chronic diastolic heart failure, acute respiratory failure, pneumonia, RAMIRO on CKD. to hospitalization, the patient receives ceftriaxone and azithromycin IV, and patient also received IV Lasix therapy. cadmium liquor maker and the tetryl wringer operator saw the patient her hospitalization. now patient is comfortable, no obvious respiratory distress. Patient is afebrile, Hemodynamically stable. continue Augmentin and doxycycline for 4 more days, increase Lasix po 40 mg daily p.o. per cardiology's recommendation. patient will see nephrology and Cardiology primary care doctor as scheduled appointments. hospital course is uneventful Time Spent with Patient Time attestation: Total time spent providing and/or coordinating discharge services: DS: Data Data Completed and Pending Labs on day of discharge: Labs from last 24 hours 05/20/22 05/20/22 05/20/22 11:41 05:58 05:58 Sodium 137 Potassium 3.9 Chloride 100 Carbon Dioxide 32 H Anion Gap 5 L BUN 62 H Creatinine 3.40 H Estim Creat Clear Calc 25 Estimated GFR 17 L Glucose 92 POC Capillary Glucose 147 H Calcium 7.8 L Procalcitonin 0.3 Preliminary micro results at discharge 05/18/22 05:12 Sputum Culture - Preliminary Sputum Discharge Plan Discharge Attending physician on discharge: Phyllis Henley Consulting providers: Cm Haynes ; Luca Kaufman Discharging Clinician: Phyllis Henley Patient Disposition: Home Health Service Activity: as tolerated Diet: heart healthy Discharge Instructions: Per Care Coordination, patient to discharge with [facility] ([phone])for PT/OT and fpc. Agency will call to arrange initial visit week of 05/23/22. Per Dr. Kaufman (Ambulatory Care Coordinator): Call office to schedule follow up appointment in 1 week 1.5L / 1,500cc fluid restriction Furosemide (Lasix) 40mg PO daily Per Dr. Haynes (Director Of Surgery): Follow up with PCP OR Call the office to schedule an appointment Patient Instructions: Antibiotic Form, Rivaroxaban (By mouth) Stand Alone Forms: General Discharge Information Follow-up/Referrals: Luca Kaufman DO [Physician] - 1 Week (Call office to schedule follow up appointment) Cm Haynes MD [Physician] - Call for Appointment Discharge
--- NOTE | 2022-05-20 15:10 | HOMEO2EVAL ---
Evaluation was performed at [facility] Home Oxygen Evaluation RC: Home Oxygen (O2) Evaluation Start: 05/20/22 13:13 Freq: ONCE Status: Active Protocol: RPE Activity Type Activity Date Activity User E-sign Co-sign Detail Recorded Client Recorded Date Recorded By Document 05/20/22 14:00 KELVIN [id number] 05/20/22 15:10 KELVIN Document 05/20/22 14:01 KELVIN [id number] 05/20/22 15:10 KELVIN Document 05/20/22 14:02 KELVIN [email or web address] 05/20/22 15:10 KELVIN 05/20/22 05/20/22 05/20/22 14:00 14:01 14:02 Home O2 Evaluation [Oxygen] -Test Phase Resting Resting Resting -Oxygen Delivery Room Air Nasal Cannula Nasal Cannula -Oxygen Flow Rate (L/min) 1 2 [Pulse Oximetry] -Pulse Oximetry (90-100 %) 87 L 88 L 92 [Pulse Rate] -Pulse Rate (60-100 beats/min) 88 [Comments] -Home Oxygen Evaluation Comments Pt requires 2 L O2 resting. Pt did not ambulate. see respiratory note [Charges] -Treatment Charges O2 Evaluation - Inpatient
--- NOTE | 2022-05-20 15:10 | PCRCNOTE ---
Home O2 eval: Pt requires 2 L with rest. Did not ambulate. Pt states he will not go home with oxygen. He lives alone and cant handle home oxygen. Unsure of discharge situation. Will hold set-up until RN confirms he will take O2 home.
--- NOTE | 2022-05-20 16:13 | PCRCNOTE ---
Window of time for administration has passed. See next scheduled administration.
[2022-05-20 17:07] LABS: Glucose Point of Care 97 mg/dl (65-105)
[2022-05-20] MEDS: RIVAROXABAN 15 MG TABLET PO (17:14)
--- NOTE | 2022-05-20 17:50 | PC.NURSE ---
Finn Diego with Care Coordination, hold discharge until 05/21/2022 and try to wean patient off of oxygen since he does not typically wear oxygen at home. Patient/family agreeable to holding discharge at this time.
--- NOTE | 2022-05-20 22:30 | PCRCNOTE ---
Patient refused apnea link stating he gets up every hour to urinate.
[2022-05-21] VITALS (13 sets, daily range): BP systolic 85–139; BP diastolic 54–65; PULSE 71–92; RESP 16–20; TEMP 36.1–36.3; O2SAT 87–93
[2022-05-21] MEDS: BENZONATATE 100 MG CAPSULE 200 MG PO (00:46)
[2022-05-21] MEDS: ALBUTEROL SULFATE NEB 2.5 MG/3 ML INH INHALATION ×2 (03:03→10:09)
[2022-05-21] MEDS: IPRATROPIUM BR 0.02% INH SOLN 0.5 MG/2.5 ML VIAL INHALATION ×2 (03:03→10:09)
[2022-05-21] MEDS: ACETAMINOPHEN 325 MG TABLET 650 MG PO ×2 (03:38→09:01)
[2022-05-21 04:22] LABS: Legionella pneumophila Ag Ur Not Detected (Not Detected)
[2022-05-21 07:10] LABS: Basophils Absolute Auto 0.1 K/mm3 (0.0-0.1); Basophils Percent Auto 0.6 % (0.2-1.2); Eosinophils Absolute Auto 0.5 K/mm3 (0-0.3); Eosinophils Percent Auto 4.6 % (0-4.4); Hematocrit 26.7 % (42.0-52.0); Hemoglobin 8.5 g/dL (14.0-18.0); Immature Granulocyte Absolute 0.05 K/mm3 (0.00-0.031); Immature Granulocyte Percent A 0.4 % (0-0.5); Lymphocytes Absolute Auto 1.11 K/mm3 (0.9-3.2); Lymphocytes Percent Auto 9.8 % (18.3-44.2); Mean Corpuscular HGB Conc 31.8 g/dl (32-36); Mean Corpuscular Volume 94.3 fl (80-100); Mean Platelet Volume 9.4 fl (7.4-10.4); Monocytes Absolute Auto 1.1 K/mm3 (0.1-0.6); Monocytes Percent Auto 9.7 % (2.6-8.5); Neutrophils Absolute Auto 8.5 K/mm3 (1.3-6.7); Neutrophils Percent Auto 74.9 % (45.5-73.1); Platelet Count Result 264 k/mm3 (150-375); Red Blood Count 2.83 M/mm3 (4.6-6.20); Red Cell Distribution Width 13.1 % (11.5-14.5); White Blood Count 11.3 K/mm3 (4.5-10.0)
[2022-05-21 07:17] LABS: Albumin Level 3.4 g/dL (3.5-5.1); Anion Gap 4 mmol/L (8-16); Blood Urea Nitrogen 67 mg/dL (9-20); Calcium 8.2 mg/dL (8.4-10.2); Carbon Dioxide 32 mmol/L (22-30); Chloride 101 mmol/L (98-107); Estimated CRCL calculation 26 ml/min; Estimated Glomerular Filt Rate 18; Glucose 89 mg/dL (65-110); Phosphorus 4.2 mg/dL (2.5-4.5); Potassium 4.1 mmol/L (3.4-5.0); Sodium 137 mmol/L (137-145)
[2022-05-21 08:40] LABS: Procalcitonin 0.3 ng/mL
[2022-05-21] MEDS: MULTIVITAMINS /C LUTEIN (CENTRUM SILVER) TABLET *BKC 1 TAB PO (09:00)
[2022-05-21] MEDS: OMEGA 3 POLYUNSAT FATTY ACIDS 1 GM CAP PO (09:00)
[2022-05-21] MEDS: ACIDOPHILUS/BULGARICUS CHEWABLE TABLET 2 TABLET BY MOUTH (09:00)
[2022-05-21] MEDS: FUROSEMIDE 40 MG TABLET PO (09:00)
[2022-05-21] MEDS: FAMOTIDINE 20 MG TABLET PO (09:01)
[2022-05-21] MEDS: LORATADINE 10 MG TABLET PO (09:01)
[2022-05-21] MEDS: TOLNAFTATE 1% POWDER 45 GM BTL 1 APPLIC TOPICAL (09:05)
[2022-05-21] MEDS: METOPROLOL TARTRATE 50 MG TAB PO (09:47)
[2022-05-21 10:25] LABS: Vancomycin Trough 18.4 ug/mL (10.0-20.0)
[2022-05-21 12:23] LABS: Glucose Point of Care 113 mg/dl (65-105)
--- NOTE | 2022-05-21 14:57 | HOMEO2EVAL ---
Evaluation was performed at [facility] Home Oxygen Evaluation RC: Home Oxygen (O2) Evaluation Start: 05/20/22 13:13 Freq: ONCE Status: Active Protocol: RPE Activity Type Activity Date Activity User E-sign Co-sign Detail Recorded Client Recorded Date Recorded By Document 05/20/22 14:00 KELVIN [email or web address] 05/20/22 15:10 KELVIN Document 05/20/22 14:01 KELVIN [email or web address] 05/20/22 15:10 KELVIN Document 05/20/22 14:02 KELVIN [email or web address] 05/20/22 15:10 KELVIN Document 05/21/22 14:00 KELVIN [email or web address] 05/21/22 14:57 KELVIN Document 05/21/22 14:03 KELVIN [email or web address] 05/21/22 14:57 KELVIN Document 05/21/22 14:10 KELVIN [email or web address] 05/21/22 14:57 KELVIN Document 05/21/22 14:15 KELVIN [email or web address] 05/21/22 14:57 KELVIN 05/20/22 05/20/22 05/20/22 14:00 14:01 14:02 Home O2 Evaluation [Oxygen] -Test Phase Resting Resting Resting -Oxygen Delivery Room Air Nasal Cannula Nasal Cannula -Oxygen Flow Rate (L/min) 1 2 [Pulse Oximetry] -Pulse Oximetry (90-100 %) 87 L 88 L 92 [Pulse Rate] -Pulse Rate (60-100 beats/min) 88 [Comments] -Home Oxygen Evaluation Comments Pt requires 2 L O2 resting. Pt did not ambulate. see respiratory note [Charges] -Treatment Charges O2 Evaluation - Inpatient 05/21/22 05/21/22 05/21/22 14:00 14:03 14:10 Home O2 Evaluation [Oxygen] -Test Phase Resting Exercise Exercise -Oxygen Delivery Room Air Room Air Nasal Cannula -Oxygen Flow Rate (L/min) 1 [Pulse Oximetry] -Pulse Oximetry (90-100 %) 93 87 L 92 [Pulse Rate] -Pulse Rate (60-100 beats/min) 78 88 89 [Comments] -Home Oxygen Evaluation Comments PT REQUIRES 1 L HOME O2 WITH ACTIVITY, REQUIRES A PORTABLE OXYGEN CONCENTRATOR [Charges] -Treatment Charges O2 Evaluation - Inpatient 05/21/22 14:15 Home O2 Evaluation [Oxygen] -Test Phase Resting -Oxygen Delivery Room Air -Oxygen Flow Rate (L/min) [Pulse Oximetry] -Pulse Oximetry (90-100 %) 93 [Pulse Rate] -Pulse Rate (60-100 beats/min) 72 [Comments] -Home Oxygen Evaluation Comments [Charges] -Treatment Charges
--- NOTE | 2022-05-21 15:29 | PM.DS ---
DS: Admitting Diagnosis Discharge Date 05/21/22 Admitting Diagnosis acute respiratory failure,? acute CHF, pneumonia DS: Discharge Diagnosis Discharge Diagnosis (1) Acute exacerbation of congestive heart failure: Qualifiers: Heart failure type: unspecified Qualified Code(s): I50.9 - Heart failure, unspecified Code(s): I50.9 - Heart failure, unspecified Status: Acute (2) Atrial fibrillation: Qualifiers: Atrial fibrillation type: unspecified Qualified Code(s): I48.91 - Unspecified atrial fibrillation Code(s): I48.91 - Unspecified atrial fibrillation Status: Acute DS: Summary Hospital Course Reason for hospitalization: acute on chronic systolic heart failure, pneumonia Hospital Course: Patient is an 81-year-old male with past medical history of congestive heart failure, paroxysmal atrial fibrillation on Xarelto, CKD unknown baseline who presents to ED with complaints of shortness of breath.? His symptom onset was around Hilda, patient states he had gained about 10 lb and has known history of heart failure.? He takes Lasix 20 mg daily.? He also had some other symptoms of cough congestion runny nose.? His dyspnea continued to worsen over the course of the last 2 weeks.? On arrival to the ED today his O2 saturation was 80% on room air.? Daughter bedside states patient has been gaining weight and she had not closely follow his diet considering heart failure history. ?to hospitalization, patient was found to have acute on chronic? diastolic heart failure, acute respiratory failure, pneumonia,? RAMIRO on CKD. ? to hospitalization,? the patient receives? ceftriaxone and azithromycin IV, and patient also received IV Lasix therapy. ? water filtration technician and the pet care technician saw the patient her hospitalization. ? now? patient is comfortable, no obvious respiratory distress.? Patient is afebrile,? Hemodynamically stable. ? continue Augmentin and doxycycline for 4 more days,? increase? Lasix po 40 mg daily p.o. per cardiology's recommendation. ? patient will see nephrology and Cardiology primary care doctor as scheduled? appointments. ? hospital course is? uneventful Time Spent with Patient Time attestation: Total time sp40nt providing and/or coordinating discharge services: 35 DS: Data Data Completed and Pending Labs on day of discharge: Labs from last 24 hours 05/21/22 05/21/22 05/21/22 12:11 09:29 06:29 WBC RBC Hgb Hct MCV MCH MCHC RDW Plt Count MPV Immature Gran % (Auto) Neut % (Auto) Lymph % (Auto) [place] % (Auto) Eos % (Auto) Baso % (Auto) Lymph # (Auto) [place] # (Auto) Eos # (Auto) Baso # (Auto) Abs Immat Gran (auto) Absolute Neuts (auto) Absolute Nucleated RBC Nucleated RBC % Sodium 137 Potassium 4.1 Chloride 101 Carbon Dioxide 32 H Anion Gap 4 L BUN 67 H Creatinine 3.30 H Estim Creat Clear Calc 26 Estimated GFR 18 L Glucose 89 POC Capillary Glucose 113 H Calcium 8.2 L Phosphorus 4.2 Albumin 3.4 L Procalcitonin Vancomycin Trough 18.4 Ur L.pneumophila Ag 05/21/22 05/21/22 05/20/22 06:29 06:29 17:01 WBC 11.3 H RBC 2.83 L Hgb 8.5 L Hct 26.7 L MCV 94.3 D MCH 30.0 MCHC 31.8 L RDW 13.1 Plt Count 264 MPV 9.4 Immature Gran % (Auto) 0.4 Neut % (Auto) 74.9 H Lymph % (Auto) 9.8 L [place] % (Auto) 9.7 H Eos % (Auto) 4.6 H Baso % (Auto) 0.6 Lymph # (Auto) 1.11 [place] # (Auto) 1.1 H Eos # (Auto) 0.5 H Baso # (Auto) 0.1 Abs Immat Gran (auto) 0.05 H Absolute Neuts (auto) 8.5 H Absolute Nucleated RBC 0.0 Nucleated RBC % 0.0 Sodium Potassium Chloride Carbon Dioxide Anion Gap BUN Creatinine Estim Creat Clear Calc Estimated GFR Glucose POC Capillary Glucose 97 Calcium Phosphorus Albumin Procalcitonin 0.3 Vancomycin Trough Ur L.
--- NOTE | 2022-05-21 16:37 | PCRCNOTE ---
HOME O2 NEEDED AT 1 L WITH ACTIVITY, SET UP WITH IV RESP CARE WITH [facility] THEY WILL CONTACT DAUGHTER FOR SET UP AT HOME. OK TO D/C
[2022-05-23 07:49] LABS: Mycoplasma IgM Antibody Titer 24 U/mL (<770)
[2022-05-23 07:49] LABS: Pneumococcal Antigen Urine Not Detected (Not Detected)
== END 2022-05-21 16:30 | disposition home health service (06) | DRG 291 ==
LOC: ANHED 19:45 → ANH3MEDSUR 20:26
PROVIDERS: Internal Medicine; Internal Medicine Nephrology; Physician Assistant; Admitting Provider Student in an Organized Health Care Education/Training Program; Emergency Provider Emergency Medicine; PCP Family Medicine; Visit Provider Hospitalist
DX: I13.0 Hypertensive heart and chronic kidney disease with heart failure and stage 1 through stage 4 chronic kidney disease, or unspecified chronic kidney disease (principal); I50.33 Acute on chronic diastolic (congestive) heart failure; J18.9 Pneumonia, unspecified organism; J96.01 Acute respiratory failure with hypoxia; N17.9 Acute kidney failure, unspecified; N18.4 Chronic kidney disease, stage 4 (severe); I35.0 Nonrheumatic aortic (valve) stenosis; I48.0 Paroxysmal atrial fibrillation; I27.20 Pulmonary hypertension, unspecified; D63.1 Anemia in chronic kidney disease; K74.60 Unspecified cirrhosis of liver; E78.5 Hyperlipidemia, unspecified; M19.90 Unspecified osteoarthritis, unspecified site; Z96.659 Presence of unspecified artificial knee joint; Z20.822 Contact with and (suspected) exposure to COVID-19; Z79.01 Long term (current) use of anticoagulants
CPT/HCPCS: 36415; 36600; 71045; 71046; 71250; 76775; 80048; 80053; 80069; 80202; 81001; 82375; 82570; 82805; 82948; 83050; 83735; 83880; 84145; 84300; 84484; 84540; 85025; 85999; 86738; 87070; 87205; 87449; 87636; 87899; 93005; 94618; 94640; 96365; 96366; 96368; 96375; 96376; 97116; 97161; 97165; 97530; 97535; 99285; A9270; C8929; G0378; J0456; J0692; J0696; J1940; J3370; Q9957

== ENCOUNTER 2022-05-28 11:56 | Outpatient (NON) | payer MEDICARE, SELFPAY ==
[2022-05-28 12:41] LABS: Hematocrit 29.2 % (42.0-52.0); Hemoglobin 9.2 g/dL (14.0-18.0); Mean Corpuscular HGB Conc 31.5 g/dl (32-36); Mean Corpuscular Hemoglobin 30.8 pg (26-34); Mean Corpuscular Volume 97.7 fl (80-100); Mean Platelet Volume 9.6 fl (7.4-10.4); Platelet Count Result 301 k/mm3 (150-375); Red Blood Count 2.99 M/mm3 (4.6-6.20); Red Cell Distribution Width 14.1 % (11.5-14.5); White Blood Count 9.1 K/mm3 (4.5-10.0)
[2022-05-28 12:49] LABS: Alanine Aminotransferase 23 U/L (6-50); Albumin Level 3.7 g/dL (3.5-5.1); Alkaline Phosphatase 63 U/L (38-126); Anion Gap 7 mmol/L (8-16); Aspartate Amino Transferase 30 U/L (17-59); Bilirubin,Total 1.4 mg/dL (0.2-1.3); Blood Urea Nitrogen 72 mg/dL (9-20); Calcium 8.4 mg/dL (8.4-10.2); Carbon Dioxide 27 mmol/L (22-30); Chloride 103 mmol/L (98-107); Estimated Glomerular Filt Rate 13; Glucose 89 mg/dL (65-110); Potassium 4.7 mmol/L (3.4-5.0); Sodium 137 mmol/L (137-145)
== END 2022-05-28 11:57 | disposition home or self-care (01) ==
LOC: HOME HLTH 12:01
PROVIDERS: PCP Family Medicine; Visit Provider Family Medicine
DX: E78.5 Hyperlipidemia, unspecified (principal); D64.9 Anemia, unspecified; I50.32 Chronic diastolic (congestive) heart failure; J96.01 Acute respiratory failure with hypoxia; N18.4 Chronic kidney disease, stage 4 (severe); I13.0 Hypertensive heart and chronic kidney disease with heart failure and stage 1 through stage 4 chronic kidney disease, or unspecified chronic kidney disease; I50.33 Acute on chronic diastolic (congestive) heart failure
CPT/HCPCS: 80053; 82607; 85027

== ENCOUNTER 2022-06-04 21:57 | Inpatient (IN) | payer MEDICARE, SELFPAY ==
[2022-06-04] VITALS (13 sets, daily range): BP systolic 112–121; BP diastolic 70–88; PULSE 69–79; RESP 16–24; TEMP 36.6; O2SAT 95–99
--- NOTE | ~2022-06-04 | XR_ITS ---
XR chest 1V portable 06/12/2022 06:01 Indication: Pneumonia Procedure: AP portable chest Comparison: Comparison to multiple prior studies sequentially, with oldest reviewed study dated 06/06. Findings: Significant improvement of diffuse bilateral airspace disease, most likely resolving edema versus pneumonia. No significant effusion or pneumothorax. Central venous catheter tip in the SVC. Impression: 1: Significant improvement of bilateral airspace disease which may represent resolving edema or pneum onia. Reviewed, dictated and finalized at location A. PTIONIST/TELEPHONE OPERATOR Impression: 1: Significant improvement of bilateral airspace disease which may represent re solving edema or pneumonia.
--- NOTE | ~2022-06-04 | XR_ITS ---
EXAMINATION: XR chest 1V portable DATE: 06/07/2022 09:13 INDICATION: Alveolar hemorrhage TECHNIQUE: frontal view of the chest was obtained. COMPARISON: Chest radiograph dated 06/06/[address] dated 06/05/2022 FINDINGS: No significant interval change in patchy bilateral airspace opacities relatively sparing the subpleur al lungs which favors pulmonary edema. No pleural effusion or pneumothorax. Mild cardiomegaly. IMPRESSION: 1. Unchanged diffuse bilateral disease most likely pulmonary edema with differential including less l ikely pneumonia, pulmonary hemorrhage or some combination thereof. Reviewed, dictated and finalized at location B. L RESTORER IMPRESSION: 1. Unchanged diffuse bilateral disease most likely pulmonary edema with differe ntial including less likely pneumonia, pulmonary hemorrhage or some combination thereof.
--- NOTE | ~2022-06-04 | XR_ITS ---
EXAMINATION: XR chest 1V portable DATE: 06/04/2022 22:44 INDICATION: Shortness of breath. Cough. TECHNIQUE: A single frontal view of the chest was obtained. COMPARISON: Chest single view 05/21/2022, chest CT 05/18/2022 FINDINGS: There are airspace opacities in all lung zones bilaterally with relative sparing of the per iphery of the lungs. No pleural effusion or pneumothorax. Cardiomegaly is noted. IMPRESSION: 1. Diffuse lung disease with worsening on the left, consistent with pulmonary edema versus pneumonia. 2. Cardiomegaly. Reviewed, dictated and finalized at location A. ESS TIER IMPRESSION: 1. Diffuse lung disease with worsening on the left, consistent with pulmonary e kandi versus pneumonia. 2. Cardiomegaly.
--- NOTE | ~2022-06-04 | XR_ITS ---
Portable chest x-ray Comparison: 06/07/2022 Clinical History: Line placement Findings: Right-sided central venous line is in satisfactory position. There is diffuse groundglass pulmonary disease, minimally improved from prior exam. Cardiomediastinal silhouette is stable. Bones and soft tissues are unremarkable. Impression: Support line in place, as above. No pneumothorax. Diffuse ground glass pulmonary disease, minimally improved from prior exam. Correlate for pulmonary e kandi versus infection. Reviewed, dictated and finalized at location . P MAINT ENG Impression: Support line in place, as above. No pneumothorax. Diffuse ground glass pulmonary disease, minimally improved from prior exam. Cor relate for pulmonary edema versus infection.
--- NOTE | ~2022-06-04 | XR_ITS ---
EXAMINATION: XR chest 1V portable Exam Date/Time: 06/07/2022 15:20 FITNESS WORKER HISTORY: Post Bronchoscopy Comparison: 06/07/2022 at 9:04 AM. RESULT: Lines, tubes, and devices: None. Lungs and pleura: Low volumes. Increased diffuse bilateral airspace disease, with more focal increas ed consolidation in the right mid and lower lung. Cardiomediastinal silhouette: Stable. Other: No acute osseous or upper abdominal finding. IMPRESSION: Worsening diffuse bilateral airspace disease, particularly within the right mid and lower lung. This may represent worsening edema, given the short time course. Consider right lower lobe aspiration/pulm onary hemorrhage versus asymmetric focus of worsening edema. Reviewed, dictated and finalized at location K. ESS WORKER IMPRESSION: Worsening diffuse bilateral airspace disease, particularly within the right mid and lower lung. This may represent worsening edema, given the short time cours e. Consider right lower lobe aspiration/pulmonary hemorrhage versus asymmetric focus of worsening edema.
--- NOTE | ~2022-06-04 | US_ITS ---
EXAMINATION: US biopsy renal DATE: 06/10/2022 12:22 INDICATION: Acute on chronic kidney disease. TECHNIQUE: The procedure including the risks, benefits, and alternatives was discussed with the patie nt. Risks discussed included bleeding and infection. The patient understood the risks and agreed to p roceed. A timeout was performed to verify the patient's name, date of , and procedure to be p erformed. The skin overlying the left kidney was prepped and draped in usual sterile fashion. Anest hetic was administered with 1% lidocaine subcutaneously. An 18 gauge core biopsy needle was then use d to obtain 3 core biopsy specimens under continuous sonographic guidance. The entry site was cleaned and dressed. There were no immediate complications. FINDINGS: Ultrasound images demonstrate the needle in the kidney. IMPRESSION: 1. Ultrasound-guided random left kidney core needle biopsy. Reviewed, dictated and finalized at location A. ING TORCH OPERATOR
--- NOTE | ~2022-06-04 | CT_ITS ---
EXAMINATION: CT diagnostic chest wo con DATE: 06/05/2022 17:13 INDICATION: Hemoptysis, sob TECHNIQUE: Computed tomography (CT) of the chest was performed with 100 mL Omnipaque-350 intravenous contrast. Automated exposure control and iterative reconstruction technique were employed. The dose-l ength product was 1056.59 mGy-cm. COMPARISON: 05/18/2022. FINDINGS: CHEST: Thoracic aorta: No significant dilation. Mild calcification. Lung parenchyma and airways: Increasing airspace opacities in the bilateral lungs, with crazy paving. Similar degree of septal thickening. Thoracic inlet, axillae and chest wall: No thyroid or soft tissue mass. No axillary lymphadenopathy. Mediastinum: No mass or lymphadenopathy. Calcified right hilar node. Heart and pericardium: Cardiomegaly. Aortic calcifications. No pericardial effusion. Coronary artery calcifications: Mild. Pleura: Resolved bilateral pleural fluid. Upper abdomen: Left liver lobe cyst. Likely cirrhotic change. Right upper pole hemorrhagic renal cyst . Multiple nonobstructing left renal calculi. Gallbladder hydrops with gallbladder sludge. Thoracic bones: No acute osseous finding in the chest. IMPRESSION: 1. Interval worsening of the diffuse bilateral pulmonary opacities, likely representing pulmonary sammi ma, although infection or pulmonary hemorrhage or a combination of these entities could appear simila rly. 2. Gallbladder hydrops with biliary sludge, correlate with biliary labs. Reviewed, dictated and finalized at location K. OR RESEARCH EXECUTIVE IMPRESSION: 1. Interval worsening of the diffuse bilateral pulmonary opacities, likely repr esenting pulmonary edema, although infection or pulmonary hemorrhage or a combi nation of these entities could appear similarly. 2. Gallbladder hydrops with biliary sludge, correlate with biliary labs.
--- NOTE | ~2022-06-04 | XR_ITS ---
EXAMINATION: XR chest 1V portable DATE: 06/06/2022 09:28 INDICATION: Alveolar hemorrhage. TECHNIQUE: A single frontal view of the chest was obtained on 2 radiographs. COMPARISON: Chest CT 06/05/2012, 05/18/2022, chest single view 06/04/2022 FINDINGS: There are airspace opacities in all lung zones bilaterally with relative sparing of the dione g periphery. No pleural effusion or pneumothorax. Cardiomegaly is noted. IMPRESSION: 1. Diffuse lung disease with worsening on the right from 06/04/2022. The differential diagnosis includ es pulmonary edema and less likely pneumonia or hemorrhage. Reviewed, dictated and finalized at location A. ESE LANGUAGE PROFESSOR IMPRESSION: 1. Diffuse lung disease with worsening on the right from 06/04/2022. The differe ntial diagnosis includes pulmonary edema and less likely pneumonia or hemorrhag e.
--- NOTE | ~2022-06-04 | XR_ITS ---
EXAMINATION: XR fl guide central line place DATE: 06/09/2022 12:45 INDICATION: Central line placement. TECHNIQUE: 2 intraoperative fluoroscopic views of the chest were obtained. I was not present. Fluoros copy exposure time was 10 seconds. COMPARISON: Chest single view 06/09/2022 FINDINGS: There is a right internal jugular central venous catheter with tip overlying right atrium. IMPRESSION: 1. Central line tip overlying right atrium. Reviewed, dictated and finalized at location A. MACHINERY ERECTOR
--- NOTE | 2022-06-04 22:32 | ECG_ITS ---
Measurements Intervals [place] Rate: 78 P: MN: 0 QRS: 12 QRSD: 103 T: 56 QT: 417 QTc: 478 Interpretive Statements ATRIAL FIBRILLATION BASELINE WANDER- V2-V4 ABNORMAL ECG NO PREVIOUS ECG AVAILABLE FOR COMPARISON Electronically Signed On 06-05-2022 9:57:55 BOOM CRANE OPERATOR by Luca Kaufman D.O.
[2022-06-04 22:55] LABS: Alveolar/Arterial O2 Gradient 137.2 mmHg; Base Excess ABG -0.6 mEq/l (+/-2.0); Fractional Inspired Oxygen 36 %; HCO3 ABG 23.8 mEq/l (22.0-26.0); Oxygen Content ABG 10.3 %vol (16.0-22.0); Oxygen Saturation ABG 95.3 % (95.0-100.0); Oxyhemoglobin 92.1 % THb (90.0-100.0); PCO2 ABG 38.2 mmHg (35.0-45.0); PO2 ABG 75.2 mmHg (80.0-100.0); PO2 FiO2 Ratio Arterial Blood 2.09 %; Total Hemoglobin 7.9 g/dL (12.0-18.0); pH ABG 7.413 (7.350-7.450)
[2022-06-04 22:56] LABS: Device NASAL CANNULA; Modified Allen's Test Pass; Site Drawn LEFT RADIAL
[2022-06-04 23:18] LABS: INR 2.5; Prothrombin Time 25.9 Seconds (11.1-14.7)
[2022-06-04 23:24] LABS: Basophils Absolute Auto 0.1 K/mm3 (0.0-0.1); Basophils Percent Auto 0.6 % (0.2-1.2); Eosinophils Absolute Auto 0.5 K/mm3 (0-0.3); Eosinophils Percent Auto 4.2 % (0-4.4); Hematocrit 22.8 % (42.0-52.0); Hemoglobin 7.2 g/dL (14.0-18.0); Immature Granulocyte Absolute 0.05 K/mm3 (0.00-0.031); Immature Granulocyte Percent A 0.4 % (0-0.5); Lymphocytes Absolute Auto 1.07 K/mm3 (0.9-3.2); Lymphocytes Percent Auto 8.6 % (18.3-44.2); Mean Corpuscular HGB Conc 31.6 g/dl (32-36); Mean Corpuscular Hemoglobin 31.2 pg (26-34); Mean Corpuscular Volume 98.7 fl (80-100); Mean Platelet Volume 9.8 fl (7.4-10.4); Neutrophils Absolute Auto 9.7 K/mm3 (1.3-6.7); Neutrophils Percent Auto 78.2 % (45.5-73.1); Platelet Count Result 284 k/mm3 (150-375); Red Blood Count 2.31 M/mm3 (4.6-6.20); Red Cell Distribution Width 14.4 % (11.5-14.5); White Blood Count 12.4 K/mm3 (4.5-10.0)
[2022-06-04 23:27] LABS: Alanine Aminotransferase 19 U/L (6-50); Albumin Level 3.9 g/dL (3.5-5.1); Alkaline Phosphatase 59 U/L (38-126); Anion Gap 9 mmol/L (8-16); Aspartate Amino Transferase 37 U/L (17-59); Bilirubin,Total 1.3 mg/dL (0.2-1.3); Blood Urea Nitrogen 102 mg/dL (9-20); Calcium 8.7 mg/dL (8.4-10.2); Carbon Dioxide 24 mmol/L (22-30); Chloride 99 mmol/L (98-107); Estimated Glomerular Filt Rate 10; Glucose 104 mg/dL (65-110); Magnesium 2.5 mg/dL (1.6-2.3); NT Pro B Type Natriuretic Pept 11600 pg/mL (19.9-100); Potassium 5.4 mmol/L (3.4-5.0); Sodium 132 mmol/L (137-145)
--- NOTE | 2022-06-04 23:29 | ED.GENADULT ---
HPI - General Adult General Chief complaint: Weakness Stated complaint: WEAKNESS, NAUSEA Time Seen by Provider: 06/04/22 22:26 History of Present Illness HPI narrative: Patient is a 81-year-old gentleman who presents the emergency department with chief complaint of generalized weakness. The patient reports he was recently in the hospital for congestive heart failure and has noticed that he has been getting progressively weaker at home and has been getting more short of breath. Patient states is worse with ambulation and improved with rest patient reports he has had a cough at home denies fever. Patient states that when he was in the hospital recently he was being treated for pneumonia as well. Related Data Home Medications Medication Instructions Recorded Confirmed Allergy Relief-D (cetirizine) 10 mg PO DAILY 05/16/22 05/16/22 Centrum Men 1 cap PO DAILY 05/16/22 05/16/22 Neuriva Plus 1 tab-cap PO DAILY 05/16/22 05/16/22 [place] 3 Fish Oil 1 cap PO DAILY 05/16/22 05/16/22 Probiotic Blend 1 cap PO DAILY 05/16/22 05/16/22 Xarelto 15 mg PO DAILY 05/16/22 05/16/22 amlodipine 5 mg tablet 5 mg PO DAILY 05/16/22 05/16/22 famotidine 20 mg tablet 20 mg PO BID 05/16/22 05/16/22 lisinopril 10 mg tablet 10 mg PO DAILY 05/16/22 05/16/22 metoprolol tartrate 50 mg tablet 50 mg PO BID 05/16/22 05/16/22 temazepam 15 mg capsule 15 mg PO PRN PRN Sleep 05/16/22 05/16/22 tramadol 50 mg tablet 50 mg PO Q6-8H PRN Pain 05/16/22 05/16/22 Allergies Allergy/AdvReac Type Severity Reaction Status Date / Time camphor [From Biofreeze] Allergy Intermediate Hives Verified 06/04/22 22:00 menthol [From Biofreeze] Allergy Intermediate Hives Verified 06/04/22 22:00 Review of Systems Review of Systems: A 10 system review of systems was completed on the patient and is negative except for what is stated in the HPI. Nursing and ancillary documentation was reviewed. [facility] Past Medical History Medical History Aortic stenosis, moderate Atrial fibrillation Atrial fibrillation CHF (congestive heart failure) DJD (degenerative joint disease) Dyspnea due to congestive heart failure Elevated lipids HLD (hyperlipidemia) HTN (hypertension) Hypertension Insomnia Insomnia Osteoarthritis Rheumatoid arthritis Surgical History Surgical History History of shoulder surgery History of total knee replacement History of total knee replacement Family History Family History Father Heart failure Father Family history of liver disease Diabetes mellitus Family history of kidney disease Mother Family history of diabetes mellitus in first degree relative Diabetes mellitus Family history of renal failure Other Family history of gout Hypertension Social History Social History Social History: Smoking packs per day: 0.5 Smoking cigarettes per day: 10.0 Years smoked: 18 Smoking pack-years: 9.00 Smoking status: Former smoker Tobacco type: cigarettes Second hand tobacco smoke exposure: Yes Smoking end date: 05/16/17 Alcohol intake: current Drinks per week: 1 Alcohol use details: Occasionally Substance use: never Substance use type: does not use Other substance usage details: alcohol - very rare Lack of Transportation: No Lack of Food: Never True Current Housing: I Have Housing Concerned About Future Housing: No Difficulty Paying Gas/Electric Bills: No Difficulty Paying for Meds: No Currently Unemployed: No Education: High School Diploma/GED Difficulty w/ Childcare or Family Care: No Living arrangements: alone Occupation/Education: retired Gender identity (if verbalized by the patient): Male Sexual Orientation (if Verbalized by the Patient): Straight or Het
[2022-06-04 23:40] LABS: Influenza A QL RT-PCR Negative (Negative); Influenza B QL RT-PCR Negative (Negative); SARS-CoV-2 RNA PCR Negative
[2022-06-04 23:51] LABS: Procalcitonin 0.3 ng/mL
[2022-06-04 23:57] LABS: Appearance Urine Clear (Clear); Bilirubin Urine Negative (Negative); Blood Urine 3+ (Negative); Color Urine Yellow (Yellow); Glucose Urine UA Negative (Negative); Ketones Urine Negative (Negative); Leukocyte Esterase Ur 1+ LEU/UL (Negative); Nitrate Urine Negative (Negative); Protein Urine 3+ mg/dL (Negative); Specific Grav Ur 1.025 (1.001-1.035); Urobilinogen Urine 0.2 mg/dL (<2.0); pH Urine 5.5 (5.0-9.0)
[2022-06-05] VITALS (20 sets, daily range): BP systolic 95–115; BP diastolic 55–85; PULSE 63–94; RESP 18–24; TEMP 36.1–37.1; O2SAT 90–94; BMI 97.7
[2022-06-05 00:04] LABS: Mucus Urine Rare /lpf; RBC Urine >75 /hpf (0-2); WBC Urine 31-50 /hpf
[2022-06-05 00:14] LABS: Add Urine Microscopic? YES
[2022-06-05] MEDS: FUROSEMIDE INJ 40 MG/4 ML VIAL IV PUSH ×2 (00:27→10:53)
[2022-06-05 03:24] LABS: Troponin I 0.022 ng/mL (0.000-0.034)
[2022-06-05 08:53] LABS: Hematocrit 22.5 % (42.0-52.0); Mean Corpuscular HGB Conc 31.1 g/dl (32-36); Mean Corpuscular Hemoglobin 30.6 pg (26-34); Mean Corpuscular Volume 98.3 fl (80-100); Mean Platelet Volume 9.9 fl (7.4-10.4); Platelet Count Result 290 k/mm3 (150-375); Red Blood Count 2.29 M/mm3 (4.6-6.20); Red Cell Distribution Width 14.5 % (11.5-14.5); White Blood Count 13.9 K/mm3 (4.5-10.0)
[2022-06-05 09:07] LABS: Alanine Aminotransferase 19 U/L (6-50); Albumin Level 3.8 g/dL (3.5-5.1); Alkaline Phosphatase 60 U/L (38-126); Anion Gap 9 mmol/L (8-16); Aspartate Amino Transferase 27 U/L (17-59); Bilirubin,Total 1.4 mg/dL (0.2-1.3); Blood Urea Nitrogen 99 mg/dL (9-20); Calcium 8.6 mg/dL (8.4-10.2); Carbon Dioxide 24 mmol/L (22-30); Chloride 100 mmol/L (98-107); Estimated CRCL calculation 22 ml/min; Estimated Glomerular Filt Rate 9; Glucose 98 mg/dL (65-110); Magnesium 2.5 mg/dL (1.6-2.3); Potassium 4.8 mmol/L (3.4-5.0); Sodium 133 mmol/L (137-145)
[2022-06-05] MEDS: LORATADINE 10 MG TABLET PO (10:53)
[2022-06-05] MEDS: ACIDOPHILUS/BULGARICUS CHEWABLE TABLET 1 TABLET PO (10:53)
[2022-06-05] MEDS: MULTIVITAMINS /C LUTEIN (CENTRUM SILVER) TABLET *BKC 1 TAB PO (10:53)
[2022-06-05] MEDS: FAMOTIDINE 20 MG TABLET PO ×2 (10:54→17:51)
[2022-06-05] MEDS: METOPROLOL TARTRATE 50 MG TAB PO (10:54)
[2022-06-05] MEDS: amLODIPine BESYLATE 5 MG TABLET PO (10:54)
[2022-06-05] MEDS: OMEGA 3 POLYUNSAT FATTY ACIDS 1 GM CAP PO (10:54)
--- NOTE | 2022-06-05 11:47 | P.CONNP_ITS ---
Assessment and Plan Assessment and plan (1) RAMIRO (acute kidney injury): Code(s): N17.9 - Acute kidney failure, unspecified Status: Acute Assessment and Plan: * etiology? * given trend of labs in the last few months, possible CKD progression(?) [see #2] * howeveer, issues with CHF and pneumonia could be partly to blame * check renal ultrasound, urine studies and CPK * follow repeat labs and UOP (2) Chronic kidney disease, stage IV (severe): Code(s): N18.4 - Chronic kidney disease, stage 4 (severe) Status: Chronic Assessment and Plan: * since 2018, creatinine has been running ~ 1.4 - 1.7mg/dl * however, in July 2021, it increased to 1.93mg/dl * then, in March 2022, it was 2.32mg/dl * on discharge in early May 2022, it was 3.3mg/dl * outpatient labs on 05/28/22, creatinine up to 4.4mg/dl * element of kidney disease progression seems apparent * presumably due to HTN, vascular disease/CHF, and age (3) Acute exacerbation of congestive heart failure: Qualifiers: Heart failure type: unspecified Qualified Code(s): I50.9 - Heart failure, unspecified Code(s): I50.9 - Heart failure, unspecified Status: Acute Assessment and Plan: * gentle diuresis * continue fluid restriction * follow I/Os, daily weights, and respiratory status * if fails to improve with conservative therapy, may need more aggressive measures (i.e. dialysis) (4) Pneumonia: Qualifiers: Laterality: right Lung location: unspecified part of lung Pneumonia type: due to unspecified organism Qualified Code(s): J18.9 - Pneumonia, unspecified organism Code(s): J18.9 - Pneumonia, unspecified organism Status: Acute Assessment and Plan: * as suspected by admission imaging * on antibiotics * follow culture data (5) HTN (hypertension): Code(s): I10 - Essential (primary) hypertension Status: Chronic Assessment and Plan: * reasonable control at this time * attempt to keep in the 120 systolic or higher to possible improve renal blood flow * follow trend of hemodynamics (6) Anemia: Code(s): D64.9 - Anemia, unspecified Status: Chronic Assessment and Plan: * likely due to CKD +/- RAMIRO and acute illness * PRBC transfusion per protocol * consider empiric Epogen therapy * follow trend of H/H Extensive discussion (> 20 minutes) with patient regarding his renal failure and significant worsening in the last few months as noted above and my concerns that if there is not a reversible cause, he may require/need renal replacement therapy/dialysis; he is aware of what dialysis is as his father was on dialysis treatments before he . Will continue to follow. History of Present Illness Reason for Consult Consult date: 06/05/22 Reason for consult: acute renal failure (on chronic kidney disease) Chief Complaint Chief complaint: Acute Hypoxic Respiratory Failure,CHF,Acute Kidney History of Present Illness Narrative: The patient is an 81-year-old male with a past medical history as outlined below who presented to [facility] Emergency room with complaints of shortness of breath and weaknesss. The patient was just recently discharged from [facility] for a CHF exacerbation as well as acute on chronic kidney disease. He reports that since his discharge, he has felt that he is progressively got weaker at home in association with shortness of breath. He reports his weakness and shortness of breath is worse with any type B
--- NOTE | 2022-06-05 11:47 | PM.CNNEP ---
Assessment and Plan Assessment and plan (1) RAMIRO (acute kidney injury): Code(s): N17.9 - Acute kidney failure, unspecified Status: Acute Assessment and Plan: etiology? given trend of labs in the last few months, possible CKD progression(?) [see #2] howeveer, issues with CHF and pneumonia could be partly to blame check renal ultrasound, urine studies and CPK follow repeat labs and UOP (2) Chronic kidney disease, stage IV (severe): Code(s): N18.4 - Chronic kidney disease, stage 4 (severe) Status: Chronic Assessment and Plan: since 2018, creatinine has been running ~ 1.4 - 1.7mg/dl however, in July 2021, it increased to 1.93mg/dl then, in March 2022, it was 2.32mg/dl on discharge in early May 2022, it was 3.3mg/dl outpatient labs on 05/28/22, creatinine up to 4.4mg/dl element of kidney disease progression seems apparent presumably due to HTN, vascular disease/CHF, and age (3) Acute exacerbation of congestive heart failure: Qualifiers: Heart failure type: unspecified Qualified Code(s): I50.9 - Heart failure, unspecified Code(s): I50.9 - Heart failure, unspecified Status: Acute Assessment and Plan: gentle diuresis continue fluid restriction follow I/Os, daily weights, and respiratory status if fails to improve with conservative therapy, may need more aggressive measures (i.e. dialysis) (4) Pneumonia: Qualifiers: Laterality: right Lung location: unspecified part of lung Pneumonia type: due to unspecified organism Qualified Code(s): J18.9 - Pneumonia, unspecified organism Code(s): J18.9 - Pneumonia, unspecified organism Status: Acute Assessment and Plan: as suspected by admission imaging on antibiotics follow culture data (5) HTN (hypertension): Code(s): I10 - Essential (primary) hypertension Status: Chronic Assessment and Plan: reasonable control at this time attempt to keep in the 120 systolic or higher to possible improve renal blood flow follow trend of hemodynamics (6) Anemia: Code(s): D64.9 - Anemia, unspecified Status: Chronic Assessment and Plan: likely due to CKD +/- RAMIRO and acute illness PRBC transfusion per protocol consider empiric Epogen therapy follow trend of H/H Extensive discussion (> 20 minutes) with patient regarding his renal failure and significant worsening in the last few months as noted above and my concerns that if there is not a reversible cause, he may require/need renal replacement therapy/dialysis; he is aware of what dialysis is as his father was on dialysis treatments before he . Will continue to follow. History of Present Illness Reason for Consult Consult date: 06/05/22 Reason for consult: acute renal failure (on chronic kidney disease) Chief Complaint Chief complaint: Acute Hypoxic Respiratory Failure,CHF,Acute Kidney History of Present Illness Narrative: The patient is an 81-year-old male with a past medical history as outlined below who presented to [facility] Emergency room with complaints of shortness of breath and weaknesss. The patient was just recently discharged from [facility] for a CHF exacerbation as well as acute on chronic kidney disease. He reports that since his discharge, he has felt that he is progressively got weaker at home in association with shortness of breath. He reports his weakness and shortness of breath is worse with any type B ambulatory activity and seems to be doing somewhat better when he is at rest. As the symptoms seem to be progressively getting worse and worse, he presented to the ER for further assessment. Workup and evaluation emergency room demonstrated the patient be hemodynamically stable but clearly in mild respiratory distress requiring supplemental oxygen. Routine blood test demonstrated an elevated BNP, and elevated BUN and crea
--- NOTE | 2022-06-05 13:12 | PM.IMHP ---
H&P: HPI History of Present Illness Date/Time: 06/05/22 13:12 Chief Complaint: generalized weakness Narrative: ED-HPI narrative: Patient is a 81-year-old gentleman who presents the emergency department with chief complaint of generalized weakness.? The patient reports he was recently in the hospital for congestive heart failure and has noticed that he has been getting progressively weaker at home and has been getting more short of breath.? Patient states is worse with ambulation and improved with rest patient reports he has had a cough at home denies fever.? Patient states that when he was in the hospital recently he was being treated for pneumonia as well. 81 year male presented with generalized weakness with history of congestive heart failure patient has a preserved LV function on recent echo showed abnormal diastolic function, with elevated BNP of and 11,600, will gently heart police the patient with Lasix 40 mg IV, patient is acute on chronic kidney disease will closely monitor kidney function, x-ray suspicious for pneumonia and patient white count elevated will start the patient on doxycycline and ceftriaxone, continue to monitor, a PT OT evaluate the and further recommendation to follow. most likely patient will stay 2 midnights and hospital with exacerbation of CHF being treated with IV Lasix and community-acquired pneumonia being treated with ceftriaxone and doxycycline IV. Review of Systems Review of Systems: A 10 system review of systems was completed on the patient and is negative except for what is stated in the HPI. Nursing and ancillary documentation was reviewed. [facility] Past Medical History Medical History Aortic stenosis, moderate Atrial fibrillation Atrial fibrillation CHF (congestive heart failure) DJD (degenerative joint disease) Dyspnea due to congestive heart failure Elevated lipids HLD (hyperlipidemia) HTN (hypertension) Hypertension Insomnia Insomnia Osteoarthritis Rheumatoid arthritis Surgical History Surgical History History of shoulder surgery History of total knee replacement History of total knee replacement Family History Family History Father Heart failure Father Family history of liver disease Diabetes mellitus Family history of kidney disease Mother Family history of diabetes mellitus in first degree relative Diabetes mellitus Family history of renal failure Other Family history of gout Hypertension Social History Social History Social History: Smoking packs per day: 0.5 Smoking cigarettes per day: 10.0 Years smoked: 5 Smoking pack-years: 2.50 Smoking status: Former smoker Tobacco type: cigarettes Second hand tobacco smoke exposure: Yes Smoking end date: 05/16/17 Alcohol intake: never Drinks per week: 1 Alcohol use details: Occasionally Substance use: never Substance use type: does not use Other substance usage details: alcohol - very rare Lack of Transportation: No Lack of Food: Never True Current Housing: I Have Housing Concerned About Future Housing: No Difficulty Paying Gas/Electric Bills: No Difficulty Paying for Meds: No Currently Unemployed: No Education: Decline to Answer Difficulty w/ Childcare or Family Care: No Living arrangements: alone Occupation/Education: retired Gender identity (if verbalized by the patient): Male Sexual Orientation (if Verbalized by the Patient): Straight or Heterosexual Spiritual care concerns: No Meds Home Medications and Allergies Home Medications Medication Instructions Recorded Confirmed Type cetirizine 10 mg capsule (Zyrtec) 10 mg PO DAILY #90 caps 11/24/21 06/05/22 Rx rivaroxaban 15 mg tablet (Xa
[2022-06-05] MEDS: cefTRIAXone 2 GM in SODIUM CHLORIDE 0.9% IV 100 ML 200 ML IVPB (14:39)
[2022-06-05] MEDS: DOXYCYCLINE 100 MG/NS 100 ML 100 MG/100 ML BAG IVPB (14:39)
[2022-06-05 16:26] LABS: Hematocrit 20.9 % (42.0-52.0); Hemoglobin 6.3 g/dL (14.0-18.0)
[2022-06-05 19:42] LABS: IFOB Positive Control Positive; Immunochemical Fecal Occult Bl Negative (N)
[2022-06-05] MEDS: SODIUM CHLORIDE 0.9% IV 250 ML 30 ML IV CONT (20:00)
--- NOTE | 2022-06-05 21:12 | P.PNCROSS_ITS ---
Event Note Event Note Event Note: I was called to see the patient because of hemoptysis. Patient's EMR was revie wed but patient has not been seen yet. Over the last month the patient has developed pulmonary infiltrate, initially on right, that have progressed also to left lung. In addition, renal function has worsened over the same period. He has been treated for CHF and possible respiratory infection. Urine analysis has shown hematuria, Patient reportedly had hemoptysis today. Per patient RN, he is not in respiratory distress, breathing O2 via N/C, low flow. PT and INR have been prolonged. Chest CT and other imaging studies are highly suggestive of alveolar hemorrhage. 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 Patient's prolonged PT could explain the alveolar hemorrhage but not hematuria, or the increasing creatinine. Plan: Need to start steroid pulse therapy, given above. Bronchoscopy in am. Keep patient NPO. repeat PT. Plan was discussed with patient's RN.
[2022-06-05 21:54] LABS: Creatinine Urine 76.5 mg/dL
[2022-06-05 22:15] LABS: INR 1.8; Prothrombin Time 20.2 Seconds (11.1-14.7)
[2022-06-05] MEDS: methylPREDNISolone SOD SUCC 1,000 MG in DEXTROSE 5% 100 ML 200 MG IVPB (23:29)
[2022-06-06] VITALS (14 sets, daily range): BP systolic 95–136; BP diastolic 53–93; PULSE 73–89; RESP 18–22; TEMP 36–36.7; O2SAT 90–94
[2022-06-06 00:07] LABS: Creatinine Urine 74.6 mg/dL; Total Protein Urine Random 147 mg/dL; Ur Ttl Prot Creatinine Ratio 1.97 mg/mg (0-0.20)
[2022-06-06] MEDS: DOXYCYCLINE 100 MG/NS 100 ML 100 MG/100 ML BAG IVPB ×3 (00:13→23:21)
[2022-06-06 00:21] LABS: Urea Random Urine 523 MG/DL
[2022-06-06 00:55] LABS: Hematocrit 24.3 % (42.0-52.0); Hemoglobin 7.7 g/dL (14.0-18.0)
[2022-06-06 01:00] LABS: Sodium Urine Random 61 meq/L
[2022-06-06 03:06] LABS: Eosinophil Urine None Seen % (None Seen)
[2022-06-06 06:13] LABS: Basophils Absolute Auto 0.1 K/mm3 (0.0-0.1); Basophils Percent Auto 0.5 % (0.2-1.2); Eosinophils Percent Auto 0.4 % (0-4.4); Immature Granulocyte Absolute 0.09 K/mm3 (0.00-0.031); Immature Granulocyte Percent A 0.8 % (0-0.5); Lymphocytes Absolute Auto 0.39 K/mm3 (0.9-3.2); Lymphocytes Percent Auto 3.7 % (18.3-44.2); Mean Corpuscular HGB Conc 31.8 g/dl (32-36); Mean Corpuscular Hemoglobin 30.6 pg (26-34); Mean Corpuscular Volume 96.1 fl (80-100); Mean Platelet Volume 9.9 fl (7.4-10.4); Monocytes Absolute Auto 0.1 K/mm3 (0.1-0.6); Monocytes Percent Auto 0.6 % (2.6-8.5); Platelet Count Result 252 k/mm3 (150-375); Red Blood Count 2.29 M/mm3 (4.6-6.20); Red Cell Distribution Width 14.4 % (11.5-14.5); White Blood Count 10.6 K/mm3 (4.5-10.0)
[2022-06-06 06:30] LABS: Anion Gap 9 mmol/L (8-16); Blood Urea Nitrogen 99 mg/dL (9-20); Calcium 8.5 mg/dL (8.4-10.2); Carbon Dioxide 22 mmol/L (22-30); Chloride 100 mmol/L (98-107); Creatine Kinase 65 U/L (55-170); Estimated CRCL calculation 13 ml/min; Estimated Glomerular Filt Rate 10; Glucose 147 mg/dL (65-110); Sodium 131 mmol/L (137-145)
[2022-06-06 06:40] LABS: Iron 31 ug/dL (49-181)
[2022-06-06 06:49] LABS: Percent Iron Saturation 9 % (20-50)
[2022-06-06 06:56] LABS: Hepatitis B Surface Antigen Negative (Negative)
[2022-06-06 07:02] LABS: HAV RESULT Negative (Negative); Hepatitis B Core IgM Result Negative (Negative)
[2022-06-06 07:14] LABS: Hepatitis B Surface Anti Res Negative; Hepatitis C Virus Antibody Negative (Negative)
[2022-06-06 08:33] LABS: INR 1.5; Prothrombin Time 17.8 Seconds (11.1-14.7)
[2022-06-06] MEDS: LORATADINE 10 MG TABLET PO (10:08)
[2022-06-06] MEDS: MULTIVITAMINS /C LUTEIN (CENTRUM SILVER) TABLET *BKC 1 TAB PO (10:08)
[2022-06-06] MEDS: OMEGA 3 POLYUNSAT FATTY ACIDS 1 GM CAP PO (10:08)
[2022-06-06] MEDS: ACIDOPHILUS/BULGARICUS CHEWABLE TABLET 1 TABLET PO (10:08)
[2022-06-06] MEDS: FAMOTIDINE 20 MG TABLET PO ×2 (10:08→16:06)
[2022-06-06] MEDS: cefTRIAXone 2 GM in SODIUM CHLORIDE 0.9% IV 100 ML 200 ML IVPB (10:08)
[2022-06-06] MEDS: METOPROLOL TARTRATE 50 MG TAB PO ×2 (10:09→20:37)
--- NOTE | 2022-06-06 10:23 | PM.CNPUL ---
Assessment and Plan Assessment and plan (1) Hemoptysis: Code(s): R04.2 - Hemoptysis Status: Acute Assessment and Plan: 81-year-old man who has had progressively increasing shortness of breath, generalized weakness, new onset anemia, worsening of renal failure, hematuria, bilateral alveolar infiltrates on chest imaging studies with progression over the last month and hemoptysis. The patient's history in conjunction with the diagnostic studies suggest pulmonary renal syndrome; in fact this entity explains most if not all of the patient symptoms. there is a small possibility that the pulmonary hemorrhage is related to prolonged PT but prolonged PT does not explain microscopic hematuria and worsening renal failure. Patient has not responded to treatment for pneumonia with repeated courses of antibiotics and also for congestive heart failure. Plan: patient started on IV steroid pulse therapy, he received 1 g last night and will receive another g today. I have discontinued vancomycin. Will arrange for bronchoscopy with BAL in a.m.. Patient should stay off Xarelto for the time being. (2) Acute hypoxemic respiratory failure: Code(s): J96.01 - Acute respiratory failure with hypoxia Status: Acute (3) Obesity: Code(s): E66.9 - Obesity, unspecified Status: Acute (4) Chronic diastolic (congestive) heart failure: Code(s): I50.32 - Chronic diastolic (congestive) heart failure Status: Acute (5) CKD (chronic kidney disease), stage III: Qualifiers: Chronic kidney disease stage 3 subtype: stage 3b (GFR 30-44) Qualified Code(s): N18.32 - Chronic kidney disease, stage 3b Code(s): N18.30 - Chronic kidney disease, stage 3 unspecified Status: Acute (6) Acute renal failure: Code(s): N17.9 - Acute kidney failure, unspecified Status: Acute History of Present Illness History of Present Illness Consult date: 06/06/22 Chief complaint: Acute Hypoxic Respiratory Failure,CHF,Acute Kidney Narrative: This 81-year-old man presented with progressively increasing weakness and shortness of breath of several weeks duration. The patient was in his usual state of health until approximately a month ago when he started to complain of weakness. He had no fever chills or chest pain. Subsequently, he started to have cough with blood tinged sputum. The patient was hospitalized approximately 3 weeks ago because of shortness of breath and weakness. Chest imaging studies showed large right lung infiltrate, with a crazy paving pattern on chest CT, rare patchy infiltrates on left and bilateral small effusions especially on the right. The patient has been treated for congestive heart failure and pneumonia with no improvement. He was sent home on supplemental oxygen. Patient continued to have weakness, worsening cough and more frequent hemoptysis. When he presented to the hospital this time, his chest CT showed worsening infiltrates bilaterally with the same pattern on chest CT. In addition his creatinine had risen to over 5. Patient again has been treated with diuretics and antibiotics for possible pneumonia. Upon questioning he denied having fever chills chest pain orthopnea or lower extremity edema. His last creatinine in March was around 2, and has now plateaued around 5.70. He had increased RBCs and protein in his urinalysis over the last month on two occasions. In addition his hemoglobin has decreased from around 13 few months ago down to 6-7 range. 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 Upon questioning he stated that he has less coughing and less hemoptysis this a.m.. His past medical history is significant for atrial fibrillation chronically on direct anticoagulant for the last year, morbid obesity, hypertension. He never had sleep study. On admission his PT INR were prolonged. Currently he is off Xarelto. Review of Syst
--- NOTE | 2022-06-06 11:05 | PM.PNNEP ---
Progress Note: A&P Assessment and Plan (1) RAMIRO (acute kidney injury): Code(s): N17.9 - Acute kidney failure, unspecified Status: Acute Assessment and Plan: etiology? 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 extensive serologies ordered (MAT, ANCA, antiGBM-Ab...etc) pulse dose steroids Pulmonary recommendations noted - bronchoscopy tomorrow previous renal ultrasound and urine electrolytes noted depending hospital course, may need renal biopsy follow repeat labs and UOP (2) Chronic kidney disease, stage IV (severe): Code(s): N18.4 - Chronic kidney disease, stage 4 (severe) Status: Chronic Assessment and Plan: since 2018, creatinine has been running ~ 1.4 - 1.7mg/dl however, in July 2021, it increased to 1.93mg/dl then, in March 2022, it was 2.32mg/dl on discharge in early May 2022, it was 3.3mg/dl outpatient labs on 05/28/22, creatinine up to 4.4mg/dl element of kidney disease progression possible presumably due to HTN, vascular disease/CHF, and age HOWEVER, see #1 (3) Acute exacerbation of congestive heart failure: Qualifiers: Heart failure type: unspecified Qualified Code(s): I50.9 - Heart failure, unspecified Code(s): I50.9 - Heart failure, unspecified Status: Acute Assessment and Plan: gentle diuresis continue fluid restriction follow I/Os, daily weights, and respiratory status if fails to improve with conservative therapy, may need more aggressive measures (i.e. dialysis) (4) Pneumonia: Qualifiers: Laterality: right Lung location: unspecified part of lung Pneumonia type: due to unspecified organism Qualified Code(s): J18.9 - Pneumonia, unspecified organism Code(s): J18.9 - Pneumonia, unspecified organism Status: Acute Assessment and Plan: as suspected by admission imaging on antibiotics follow culture data (5) HTN (hypertension): Code(s): I10 - Essential (primary) hypertension Status: Chronic Assessment and Plan: reasonable control at this time attempt to keep in the 120 systolic or higher to possible improve renal blood flow follow trend of hemodynamics (6) Anemia: Code(s): D64.9 - Anemia, unspecified Status: Chronic Assessment and Plan: likely due to CKD +/- RAMIRO and acute illness PRBC transfusion per protocol start Epogen therapy follow trend of H/H Another long discussion (> 20 minutes) with patient given the concern for possible pulmonary-renal syndrome; depending on test results, he may need a renal biopsy for a more definitive diagnosis; he appeared to voice understanding. Will continue to follow. Subjective Date/time seen: 06/06/22 11:05 Issues with hemoptysis and anemia noted prompting Pulmonary consultation; evidence to date now concerning for possible pulmonary-renal syndrome so started on pulse dose steroids with tentative plan for bronchoscopy tomorrow to assess for pulmonary alveolar hemorrhage; breathing/respiratory status seems relatively stable at this time; no significant change in renal function. Exam Narrative: General: WD/WN male in NAD Heart: normal S1 and S2; no rub Lungs: clear anteriorly and coarse at bases Abdomen: soft, nontender, nondistended, positive bowel sounds Extremities: no cyanosis or clubbing; trace edema Skin: warm and dry Objective Data Vital Signs Vital Signs: Vital Signs Temp Pulse Resp BP Pulse Ox O2 Del Method O2 Flow Rate 06/06/22 08:00 88 06/06/22 08:00 92 Nasal Cannula 2 06/06/22 10:21 114/74 06/06/22 10:09 81 06/06/22 05:39 97.9 F 80 20 104/57 L 90 06/06/22 04:00 84
--- NOTE | 2022-06-06 11:05 | P.PNNP_ITS ---
Progress Note: A&P Assessment and Plan (1) RAMIRO (acute kidney injury): Code(s): N17.9 - Acute kidney failure, unspecified Status: Acute Assessment and Plan: * etiology? 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 * extensive serologies ordered (MAT, ANCA, antiGBM-Ab...etc) * pulse dose steroids * Pulmonary recommendations noted - bronchoscopy tomorrow * previous renal ultrasound and urine electrolytes noted * depending hospital course, may need renal biopsy * follow repeat labs and UOP (2) Chronic kidney disease, stage IV (severe): Code(s): N18.4 - Chronic kidney disease, stage 4 (severe) Status: Chronic Assessment and Plan: * since 2019, creatinine has been running ~ 1.4 - 1.7mg/dl * however, in July 2021, it increased to 1.93mg/dl * then, in March 2022, it was 2.32mg/dl * on discharge in early May 2022, it was 3.3mg/dl * outpatient labs on 05/28/22, creatinine up to 4.4mg/dl * element of kidney disease progression possible * presumably due to HTN, vascular disease/CHF, and age * HOWEVER, see #1 (3) Acute exacerbation of congestive heart failure: Qualifiers: Heart failure type: unspecified Qualified Code(s): I50.9 - Heart failure, unspecified Code(s): I50.9 - Heart failure, unspecified Status: Acute Assessment and Plan: * gentle diuresis * continue fluid restriction * follow I/Os, daily weights, and respiratory status * if fails to improve with conservative therapy, may need more aggressive measures (i.e. dialysis) (4) Pneumonia: Qualifiers: Laterality: right Lung location: unspecified part of lung Pneumonia type: due to unspecified organism Qualified Code(s): J18.9 - Pneumonia, unspecified organism Code(s): J18.9 - Pneumonia, unspecified organism Status: Acute Assessment and Plan: * as suspected by admission imaging * on antibiotics * follow culture data (5) HTN (hypertension): Code(s): I10 - Essential (primary) hypertension Status: Chronic Assessment and Plan: * reasonable control at this time * attempt to keep in the 120 systolic or higher to possible improve renal blood flow * follow trend of hemodynamics (6) Anemia: Code(s): D64.9 - Anemia, unspecified Status: Chronic Assessment and Plan: * likely due to CKD +/- RAMIRO and acute illness * PRBC transfusion per protocol * start Epogen therapy * follow trend of H/H Another long discussion (> 20 minutes) with patient given the concern for possible pulmonary-renal syndrome; depending on test results, he may need a renal biopsy for a more definitive diagnosis; he appeared to voice understanding. Will continue to follow. Subjective Date/time seen: 06/06/22 11:05 Issues with hemoptysis and anemia noted prompting Pulmonary consultation; evidence to date now concerning for possible pulmonary-renal syndrome so started on pulse dose steroids with tentative plan for bronchoscopy tomorrow to assess for pulmonary alveolar hemorrhage; breathing/respiratory status seems relatively stable at this time; no significant change in renal function. Exam Narrative: General: WD/WN male in NAD Heart: normal S1 and S2; no rub Lungs: clear anteriorly
--- NOTE | 2022-06-06 11:20 | PM.IMPN ---
Progress Note: A&P Assessment and Plan (1) Congestive heart failure: Code(s): I50.9 - Heart failure, unspecified Status: Acute Assessment and Plan: ED-HPI narrative: Patient is a 81-year-old gentleman who presents the emergency department with chief complaint of generalized weakness.? The patient reports he was recently in the hospital for congestive heart failure and has noticed that he has been getting progressively weaker at home and has been getting more short of breath.? Patient states is worse with ambulation and improved with rest patient reports he has had a cough at home denies fever.? Patient states that when he was in the hospital recently he was being treated for pneumonia as well. 06/06/2022 interval history: 81 year male presented with generalized weakness with history of congestive heart failure patient has a preserved LV function on recent echo showed abnormal diastolic function, with elevated BNP of and 11,600, will gently diuresed the patient with Lasix 40 mg IV, patient is acute on chronic kidney disease will closely monitor kidney function, patient is seen by superintendent nonselling and further recommendation to follow.x-ray suspicious for pneumonia and patient white count elevated, started the patient on doxycycline and ceftriaxone, last evening patient had developed hemoptysis seen by nursing home director suspect 2/2 alveolar hemarraghe due to anticoagulation xarelto, which now stopped , today patient stats feeling better, not as short of breath, making urine, will continue to monitor, a PT OT evaluate the and further recommendation to follow. (2) Acute kidney injury: Code(s): N17.9 - Acute kidney failure, unspecified Status: Acute Assessment and Plan: patient with acute on chronic kidney disease patient being diuresed will closely monitor kidney function (3) Hypertension: Code(s): I10 - Essential (primary) hypertension Status: Acute Assessment and Plan: resume patient's home medication and monitor (4) Pneumonia: Code(s): J18.9 - Pneumonia, unspecified organism Status: Acute Assessment and Plan: patient was recently discharged from the hospital high risk of healthcare associated pneumonia however patient white counts are not significantly elevated will start the patient on ceftriaxone and doxycycline, will follow-up blood and sputum culture (5) Atrial fibrillation: Qualifiers: Atrial fibrillation type: unspecified Qualified Code(s): I48.91 - Unspecified atrial fibrillation Code(s): I48.91 - Unspecified atrial fibrillation Status: Acute Assessment and Plan: rate is controlled anticoagulated with Xarelto Subjective Date/time seen: 06/06/22 11:20 06/06/2022 interval history: 81 year male presented with generalized weakness with history of congestive heart failure patient has a preserved LV function on recent echo showed abnormal diastolic function, with elevated BNP of and 11,600, will gently diuresed the patient with Lasix 40 mg IV, patient is acute on chronic kidney disease will closely monitor kidney function, patient is seen by superintendent nonselling and further recommendation to follow.x-ray suspicious for pneumonia and patient white count elevated, started the patient on doxycycline and ceftriaxone, last evening patient had developed hemoptysis seen by nursing home director suspect 2/2 alveolar hemarraghe due to anticoagulation xarelto, which now stopped , today patient stats feeling better, not as short of breath, making urine, will continue to monitor, a PT OT evaluate the and further recommendation to follow. Exam Narrative: morbidly obese Patient is comfortable, NAD HEENT: eyes are clear and none icteric LUNGS: bilateral fair air entry with rales and rhonchi HEART: RR S1S2 ABD: distended edema Lower extremities: no edema SKIN: nonjaundiced Neuro: grossly intact. Objective Data Vital Signs Vital Signs: Vital Signs -
[2022-06-06] MEDS: FUROSEMIDE INJ 40 MG/4 ML VIAL IV PUSH (11:47)
[2022-06-06] MEDS: methylPREDNISolone SOD SUCC 1,000 MG in DEXTROSE 5% 100 ML 200 MG IVPB (11:47)
[2022-06-06 13:58] LABS: Hematocrit 21.8 % (42.0-52.0)
[2022-06-06 14:08] LABS: Hemoglobin 6.9 g/dL (14.0-18.0)
[2022-06-06] MEDS: ONDANSETRON HCL ODT 4 MG TABLET PO (16:05)
[2022-06-06] MEDS: LIDOCAINE HCL 1% LOCAL INJ 2 ML AMPUL 5 ML INFILTRATE (18:31)
[2022-06-06] MEDS: SODIUM CHLORIDE 0.9% IV 250 ML 30 ML IV CONT (18:31)
[2022-06-06 23:33] LABS: Hematocrit 22.3 % (42.0-52.0); Hemoglobin 7.2 g/dL (14.0-18.0)
[2022-06-07] VITALS (19 sets, daily range): BP systolic 102–122; BP diastolic 67–93; PULSE 72–88; RESP 18–23; TEMP 36.2–36.8; O2SAT 87–99
[2022-06-07 05:38] LABS: Estimated CRCL calculation 13 ml/min; Estimated Glomerular Filt Rate 9
[2022-06-07 05:41] LABS: INR 1.4; Prothrombin Time 16.7 Seconds (11.1-14.7)
[2022-06-07 05:47] LABS: Complement C3 81 mg/dL (88-165)
--- NOTE | 2022-06-07 08:51 | PM.PNPUL ---
Progress Note: A&P Assessment and Plan (1) Acute hypoxemic respiratory failure: Code(s): J96.01 - Acute respiratory failure with hypoxia Status: Acute (2) Acute renal failure: Code(s): N17.9 - Acute kidney failure, unspecified Status: Acute (3) Hemoptysis: Code(s): R04.2 - Hemoptysis Status: Acute Assessment and Plan: 81-year-old man with shortness of breath, generalized weakness, new onset anemia, worsening renal failure,? hematuria,? bilateral alveolar infiltrates on chest imaging studies with? progression over the last month? and hemoptysis.? The patient's history in conjunction with the diagnostic studies suggest? pulmonary renal syndrome; patient has been on IV steroid pulse therapy, he will get another g Solu-Medrol today. He is scheduled for bronchoscopy around noon today. Patient complaining of nausea probably related to his renal failure. Creatinine still rising. PT lower today while he is off Xarelto. Patient is followed by renal services as well. Plan:? Continue with NPO. Bronch with BAL around noontime today. Procedure was explained to the patient who is agreeable. (4) Obesity: Code(s): E66.9 - Obesity, unspecified Status: Acute (5) Atrial fibrillation: Code(s): I48.91 - Unspecified atrial fibrillation Status: Acute (6) Chronic diastolic (congestive) heart failure: Code(s): I50.32 - Chronic diastolic (congestive) heart failure Status: Acute Subjective Date/time seen: 06/07/22 08:51 Interval history: Patient continues to have blood-tinged sputum. Shortness of breath about unchanged. Remains on nasal cannula at 2 liters/minute. Complaining of nausea. He is NPO for bronch later on today. Review of Systems Review of Systems: Patient reports some weight loss of approximately 15 lb over the last month. He has no orthopnea. He has no acid reflux disease. He has no nausea vomiting diarrhea or constipation. He has increased urinary frequency. He has no lower extremity edema. The remainder of the 12 point system review is negative All systems reviewed & are unremarkable except as noted in HPI and below ( HPI and below) Exam Narrative: GENERAL APPEARANCE: Well developed, well nourished, alert and cooperative, and appears to be in no acute distress while on supplemental oxygen via nasal cannula SKIN: Inspection of the skin reveals no rashes, ulcerations or petechiae. HEENT: Sclerae anicteric and conjunctivae pink and moist. Extraocular movements were intact and pupils were equal, round, and reactive to light. The oral mucosa, hard and soft palate, tongue and posterior pharynx were normal. NECK: Supple. There was no thyroid enlargement, and no tenderness, or masses were felt. CHEST: Normal AP diameter and normal contour without any kyphoscoliosis. LUNGS: Auscultation of the lungs revealed essentially normal breath sounds with occasional tubular sounds at bases bilaterally. CARDIAC: There was a regular rate and rhythm without any murmurs. ABDOMEN: Soft and nontender with normal bowel sounds. There was no organomegaly. LYMPH NODES: No lymphadenopathy was appreciated in the neck EXTREMITIES: No cyanosis, clubbing or edema. NEUROLOGIC: Alert and oriented x 3. Normal affect. Objective Data Vital Signs Vital Signs: Vital Signs - 24 hr 06/06/22 10:09 06/06/22 10:21 06/06/22 12:00 Temperature Pulse Rate 81 73 Respiratory Rate Blood Pressure 114/74 Pulse Oximetry 06/06/22 16:05 06/06/22 16:00 06/06/22 20:17 Temperature 36.1 C L 36.0 C L Pulse Rate 89 89 78 Respiratory Rate 18 18 Blood Pressure 95/53 L 133/87 Pulse Oximetry 91 91 06/06/22 20:37 06/06/22 21:42 06/06/22 20:00 Temperature 36.7 C Pulse Rate 77 80 75 Respiratory Rate 20 Blood Pressure 136/93 H Pulse Oximetry 94 06/06/22 22:43 06/07/22 00:00 06/07/22 04:00 Temperature 36.7 C Pulse Rate 75 79 77 Respiratory Rate 22 H
[2022-06-07] MEDS: FUROSEMIDE INJ 40 MG/4 ML VIAL IV PUSH (10:10)
[2022-06-07] MEDS: FAMOTIDINE 10 MG TABLET PO (10:10)
[2022-06-07] MEDS: LORATADINE 10 MG TABLET PO (10:10)
[2022-06-07] MEDS: cefTRIAXone 2 GM in SODIUM CHLORIDE 0.9% IV 100 ML 200 ML IVPB (10:10)
[2022-06-07] MEDS: methylPREDNISolone SOD SUCC 1,000 MG in DEXTROSE 5% 100 ML 200 MG IVPB (10:10)
[2022-06-07] MEDS: ONDANSETRON HCL ODT 4 MG TABLET PO (10:11)
[2022-06-07] MEDS: METOPROLOL TARTRATE 50 MG TAB PO ×2 (10:11→20:40)
--- NOTE | 2022-06-07 10:19 | P.PNNP_ITS ---
Progress Note: A&P Assessment and Plan (1) RAMIRO (acute kidney injury): Code(s): N17.9 - Acute kidney failure, unspecified Status: Acute Assessment and Plan: * etiology? 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 * extensive serologies ordered (MAT, ANCA, antiGBM-Ab...etc) * s/p pulse dose steroids * Pulmonary recommendations noted - bronchoscopy today * previous renal ultrasound and urine electrolytes noted * depending hospital course, may need renal biopsy * may also beed DIRECTOR OF QUANTITATIVE RESEARCH/dialysis as well * follow repeat labs and UOP (2) Chronic kidney disease, stage IV (severe): Code(s): N18.4 - Chronic kidney disease, stage 4 (severe) Status: Chronic Assessment and Plan: * since 2018, creatinine has been running ~ 1.4 - 1.7mg/dl * however, in July 2021, it increased to 1.93mg/dl * then, in March 2022, it was 2.32mg/dl * on discharge in early May 2022, it was 3.3mg/dl * outpatient labs on 05/28/22, creatinine up to 4.4mg/dl * element of kidney disease progression possible * presumably due to HTN, vascular disease/CHF, and age * HOWEVER, see #1 (3) Acute exacerbation of congestive heart failure: Qualifiers: Heart failure type: unspecified Qualified Code(s): I50.9 - Heart failure, unspecified Code(s): I50.9 - Heart failure, unspecified Status: Acute Assessment and Plan: * gentle diuresis * continue fluid restriction * follow I/Os, daily weights, and respiratory status * if fails to improve with conservative therapy, may need more aggressive measur es (i.e. dialysis) (4) Pneumonia: Qualifiers: Laterality: right Lung location: unspecified part of lung Pneumonia type: due to unspecified organism Qualified Code(s): J18.9 - Pneumonia, unspecified organism Code(s): J18.9 - Pneumonia, unspecified organism Status: Acute Assessment and Plan: * as suspected by admission imaging * on antibiotics * follow culture data (5) HTN (hypertension): Code(s): I10 - Essential (primary) hypertension Status: Chronic Assessment and Plan: * reasonable control at this time * attempt to keep in the 120 systolic or higher to possible improve renal blood flow * follow trend of hemodynamics (6) Anemia: Code(s): D64.9 - Anemia, unspecified Status: Chronic Assessment and Plan: * likely due to CKD +/- RAMIRO and acute illness * PRBC transfusion per protocol * start Epogen therapy * follow trend of H/H Long and extensive discussion (greater than 20 minutes) with the patient with regard to his renal dysfunction and his ongoing progressive decline with regard to this issue. It regardless of what is found on his bronchoscopy, I suspect he will need renal replacement therapy / dialysis fairly soon due to his ongoing deterioration in his kidney function. Furthermore, if he does indeed have diffuse alveolar hemorrhage on bronchoscopy, he probably also needs a kidney biopsy to determine how much damage has been done to his kidneys and if there is any possibility of reversibility. He may also need IV Cytoxan or IV Rituximab as well due to concern of a possible a pulmonary renal syndrome. Will continue to follow. Subjective Date/time seen: 06/07/22 10:19 No real improvement i
--- NOTE | 2022-06-07 10:19 | PM.PNNEP ---
Progress Note: A&P Assessment and Plan (1) RAMIRO (acute kidney injury): Code(s): N17.9 - Acute kidney failure, unspecified Status: Acute Assessment and Plan: etiology? 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32mg/dl on discharge in early May 2022, it was 3.3mg/dl outpatient labs on 05/28/22, creatinine up to 4.4mg/dl element of kidney disease progression possible presumably due to HTN, vascular disease/CHF, and age HOWEVER, see #1 (3) Acute exacerbation of congestive heart failure: Qualifiers: Heart failure type: unspecified Qualified Code(s): I50.9 - Heart failure, unspecified Code(s): I50.9 - Heart failure, unspecified Status: Acute Assessment and Plan: gentle diuresis continue fluid restriction follow I/Os, daily weights, and respiratory status if fails to improve with conservative therapy, may need more aggressive measures (i.e. dialysis) (4) Pneumonia: Qualifiers: Laterality: right Lung location: unspecified part of lung Pneumonia type: due to unspecified organism Qualified Code(s): J18.9 - Pneumonia, unspecified organism Code(s): J18.9 - Pneumonia, unspecified organism Status: Acute Assessment and Plan: as suspected by admission imaging on antibiotics follow culture data (5) HTN (hypertension): Code(s): I10 - Essential (primary) hypertension Status: Chronic Assessment and Plan: reasonable control at this time attempt to keep in the 120 systolic or higher to possible improve renal blood flow follow trend of hemodynamics (6) Anemia: Code(s): D64.9 - Anemia, unspecified Status: Chronic Assessment and Plan: likely due to CKD +/- RAMIRO and acute illness PRBC transfusion per protocol start Epogen therapy follow trend of H/H Long and extensive discussion (greater than 20 minutes) with the patient with regard to his renal dysfunction and his ongoing progressive decline with regard to this issue. It regardless of what is found on his bronchoscopy, I suspect he will need renal replacement therapy / dialysis fairly soon due to his ongoing deterioration in his kidney function. Furthermore, if he does indeed have diffuse alveolar hemorrhage on bronchoscopy, he probably also needs a kidney biopsy to determine how much damage has been done to his kidneys and if there is any possibility of reversibility. He may also need IV Cytoxan or IV Rituximab as well due to concern of a possible a pulmonary renal syndrome. Will continue to follow. Subjective Date/time seen: 06/07/22 10:19 No real improvement in renal function and questionable urine output noted; noted plans for bronchoscopy later this morning; no apparent distress voiced at the time of my visit; no other issues/events overnight or earlier this morning. Exam Narrative: General: WD/WN male in NAD Heart: normal S1 and S2; no rub Lungs: clear anteriorly and coarse at bases Abdomen: soft, nontender, nondistended, positive bowel sounds Extremities: no cyanosis or c
[2022-06-07] MEDS: ALTEPLASE 2 MG VIAL (CATHFLO) IV PUSH (11:01)
[2022-06-07 11:26] LABS: Hematocrit 23.2 % (42.0-52.0); Hemoglobin 7.5 g/dL (14.0-18.0); Mean Corpuscular HGB Conc 32.3 g/dl (32-36); Mean Corpuscular Volume 95.9 fl (80-100); Mean Platelet Volume 9.8 fl (7.4-10.4); Platelet Count Result 250 k/mm3 (150-375); Red Blood Count 2.42 M/mm3 (4.6-6.20); Red Cell Distribution Width 15.1 % (11.5-14.5); White Blood Count 20.3 K/mm3 (4.5-10.0)
[2022-06-07 11:39] LABS: Anion Gap 11 mmol/L (8-16); Blood Urea Nitrogen 112 mg/dL (9-20); Calcium 8.8 mg/dL (8.4-10.2); Carbon Dioxide 22 mmol/L (22-30); Chloride 99 mmol/L (98-107); Estimated CRCL calculation 13 ml/min; Estimated Glomerular Filt Rate 9; Glucose 147 mg/dL (65-110); Sodium 132 mmol/L (137-145)
[2022-06-07] MEDS: LACTATED RINGERS 1,000 ML 150 ML IV CONT (12:47)
--- NOTE | 2022-06-07 14:08 | WPDANESEPPF ---
Anes - Initial Pre Proc Eval Procedure: Operation Date: 06/07/22 14:00 Proposed Procedures p Flexible Bronchoscopy - Julien Barrow MD Date/Time: 06/07/22 14:08 Surgeon: Slime Cr DO Pre Op Diagnosis: Acute Hypoxic Respiratory Failure,CHF,Acute Kidney Patient Data Age: 81 Gender: M Height: 1.78 m Weight: 139 kg Last Vital Signs Temp 97.1 F L 06/07/22 12:41 Pulse 72 06/07/22 12:41 Resp 20 06/07/22 12:41 BP 108/72 06/07/22 12:41 Pulse Ox 92 06/07/22 12:41 O2 Del Method Nasal Cannula 06/07/22 12:41 O2 Flow Rate 2 06/07/22 12:41 Allergies Allergy/AdvReac Type Severity Reaction Status Date / Time camphor [From Biofreeze] Allergy Intermediate Hives Verified 06/07/22 12:38 menthol [From Biofreeze] Allergy Intermediate Hives Verified 06/07/22 12:38 Home Medications Medication Instructions Recorded Confirmed Type cetirizine 10 mg capsule (Zyrtec) 10 mg PO DAILY #90 caps 11/24/21 06/05/22 Rx rivaroxaban 15 mg tablet (Xarelto) 15 mg PO DAILY #30 tabs 03/09/22 06/05/22 Rx Allergy Relief-D (cetirizine) 10 mg PO DAILY 05/16/22 06/05/22 History Centrum Men 1 cap PO DAILY 05/16/22 06/05/22 History Neuriva Plus 1 tab-cap PO DAILY 05/16/22 06/05/22 History [place] 3 Fish Oil 1 cap PO DAILY 05/16/22 06/05/22 History Probiotic Blend 1 cap PO DAILY 05/16/22 06/05/22 History amlodipine 5 mg tablet 5 mg PO DAILY 05/16/22 06/05/22 History famotidine 20 mg tablet 20 mg PO BID 05/16/22 06/05/22 History lisinopril 10 mg tablet 10 mg PO DAILY 05/16/22 06/05/22 History metoprolol tartrate 50 mg tablet 50 mg PO BID 05/16/22 06/05/22 History temazepam 15 mg capsule 15 mg PO PRN PRN Sleep 05/16/22 06/05/22 History tramadol 50 mg tablet 50 mg PO Q6-8H PRN Pain 05/16/22 06/05/22 History furosemide 40 mg tablet 40 mg PO DAILY #30 tabs 05/20/22 06/05/22 Rx Laboratory Tests 06/05/22 06/06/22 06/06/22 17:32 13:52 23:21 WBC RBC Hgb 6.9 g/dL L* g/dL 7.2 g/dL L g/dL (14.0-18.0) (14.0-18.0) Hct 21.8 % L % 22.3 % L % (42.0-52.0) (42.0-52.0) MCV MCH MCHC RDW Plt Count MPV PT INR Sodium Potassium Chloride Carbon Dioxide Anion Gap BUN Creatinine Estim Creat Clear Calc Estimated GFR Glucose Calcium Cryoglobulin % Cryoglobulin Qualit MAT Screen SS-A Antibody SS-B Antibody Sm (Luke) Antibody SALES REPRESENTATIVE GRAPHIC ART Antibody SM/SALES REPRESENTATIVE GRAPHIC ART IgG Antibody Anti-DNA Antibody Complement C3 Complement C4 Tot Complement (CH50) Anti-Streptolysin Scrn Blood Type A Positive Antibody Screen Negative Crossmatch See Detail 06/07/22 06/07/22 06/07/22 05:00 05:00 05:00 WBC RBC Hgb Hct MCV MCH MCHC RDW Plt Count MPV PT 16.7 Seconds H Seconds (11.1-14.7) INR 1.4 Sodium Potassium Chloride Carbon Dioxide Anion Gap BUN Creatinine 6.00 mg/dL H mg/dL (0.7-1.3) Estim Creat Clear Calc 13 ml/min ml/min Estimated GFR 9 L (59 - ) Glucose Calcium Cryoglobulin % Cryoglobulin Qualit MAT Screen SS-A Antibody SS-B Antibody Sm (Luke) Antibody Pending SALES REPRESENTATIVE GRAPHIC ART Antibody SM/SALES REPRESENTATIVE GRAPHIC ART IgG Antibody Pending Anti-DNA Antibody Complement C3 Complement C4 Tot Complement (CH50) Anti
[2022-06-07] MEDS: LIDOCAINE HCL 2% LOCAL INJ 20 ML VIAL INFILTRATE (14:46)
--- NOTE | 2022-06-07 14:54 | SUR.OPER ---
2CC OF 2% LIDOCAINE USED. 120CC OF NORMAL SALINE USED.
[2022-06-07] MEDS: SODIUM CHLORIDE 0.9% IV 500 ML IRRIGATION (14:58)
--- NOTE | 2022-06-07 15:10 | PM.IMPN ---
Progress Note: A&P Assessment and Plan (1) Congestive heart failure: Code(s): I50.9 - Heart failure, unspecified Status: Acute Assessment and Plan: ED-HPI narrative: Patient is a 81-year-old gentleman who presents the emergency department with chief complaint of generalized weakness.? The patient reports he was recently in the hospital for congestive heart failure and has noticed that he has been getting progressively weaker at home and has been getting more short of breath.? Patient states is worse with ambulation and improved with rest patient reports he has had a cough at home denies fever.? Patient states that when he was in the hospital recently he was being treated for pneumonia as well. 06/07/2022 interval history: 81 year male presented with generalized weakness with history of congestive heart failure patient has a preserved LV function on recent echo showed abnormal diastolic function, with elevated BNP of and 11,600, will gently diuresed the patient with Lasix 40 mg IV, patient is acute on chronic kidney disease will closely monitor kidney function, patient is seen by rn bariatric recommending patient may need kidney biopsy to further evaluate and further recommendation to follow.x-ray suspicious for pneumonia and patient white count elevated, started the patient on doxycycline and ceftriaxone, last evening patient had developed hemoptysis seen by surveillance monitor suspect 2/2 alveolar hemarraghe due to anticoagulation xarelto, which now stopped, today patient is scheduled bronchoscopies to further evaluate hemoptysis today patient stats feeling better, not as short of breath, making urine, will continue to monitor, a PT OT evaluate the and further recommendation to follow (2) Acute kidney injury: Code(s): N17.9 - Acute kidney failure, unspecified Status: Acute Assessment and Plan: patient with acute on chronic kidney disease patient being diuresed will closely monitor kidney function (3) Hypertension: Code(s): I10 - Essential (primary) hypertension Status: Acute Assessment and Plan: resume patient's home medication and monitor (4) Pneumonia: Code(s): J18.9 - Pneumonia, unspecified organism Status: Acute Assessment and Plan: patient was recently discharged from the hospital high risk of healthcare associated pneumonia however patient white counts are not significantly elevated will start the patient on ceftriaxone and doxycycline, will follow-up blood and sputum culture (5) Atrial fibrillation: Qualifiers: Atrial fibrillation type: unspecified Qualified Code(s): I48.91 - Unspecified atrial fibrillation Code(s): I48.91 - Unspecified atrial fibrillation Status: Acute Assessment and Plan: rate is controlled anticoagulated with Xarelto Subjective Date/time seen: 06/07/22 15:10 ED-HPI narrative: Patient is a 81-year-old gentleman who presents the emergency department with chief complaint of generalized weakness.? The patient reports he was recently in the hospital for congestive heart failure and has noticed that he has been getting progressively weaker at home and has been getting more short of breath.? Patient states is worse with ambulation and improved with rest patient reports he has had a cough at home denies fever.? Patient states that when he was in the hospital recently he was being treated for pneumonia as well. 06/07/2022 interval history: 81 year male presented with generalized weakness with history of congestive heart failure patient has a preserved LV function on recent echo showed abnormal diastolic function, with elevated BNP of and 11,600, will gently diuresed the patient with Lasix 40 mg IV, patient is acute on chronic kidney disease will closely monitor kidney function, patient is seen by rn bariatric recommending patient may need kidney biopsy to further evaluate and further recommendation to follow.x-ray vin
[2022-06-07] MEDS: EPOETIN ALFA-EPBX 20,000 UNITS/ML VIAL 20000 UNITS SUB-Q (17:30)
[2022-06-07 17:38] LABS: Appearance Bronchial Fluid Bloody; Color Bronchial Fluid Red; Eosinophils Bronchial Fluid 1 %; Lymphocytes Bronchial Fluid 19 %; Neutrophils Bronchial Fluid 36 %; Source Bronchial Fluid Bronchial Lavage
[2022-06-07 17:39] LABS: Macrophages Bronchial Fluid 44
[2022-06-07] MEDS: SALINE LOCK FLUSH 10 ML IV PUSH ×2 (17:44→20:40)
[2022-06-07] MEDS: DOXYCYCLINE 100 MG/NS 100 ML 100 MG/100 ML BAG IVPB ×2 (17:47→17:56)
[2022-06-07 20:20] LABS: Hematocrit 23.6 % (42.0-52.0); Hemoglobin 7.4 g/dL (14.0-18.0)
[2022-06-08] VITALS (9 sets, daily range): BP systolic 109–132; BP diastolic 82–89; PULSE 68–81; RESP 20–22; TEMP 36.6; O2SAT 94–98
[2022-06-08] MEDS: DOXYCYCLINE 100 MG/NS 100 ML 100 MG/100 ML BAG IVPB (05:28)
[2022-06-08 06:09] LABS: Estimated CRCL calculation 13 ml/min; Estimated Glomerular Filt Rate 9
[2022-06-08 06:12] LABS: INR 1.3; Prothrombin Time 15.5 Seconds (11.1-14.7)
[2022-06-08] MEDS: SALINE LOCK FLUSH 10 ML IV PUSH ×3 (06:28→21:06)
[2022-06-08] MEDS: methylPREDNISolone SOD SUCC 500 MG in DEXTROSE 5% 100 ML 200 MG IVPB (07:03)
[2022-06-08 09:04] LABS: Albumin Level 3.2 g/dL (3.5-5.1); Anion Gap 9 mmol/L (8-16); Calcium 8.6 mg/dL (8.4-10.2); Carbon Dioxide 24 mmol/L (22-30); Chloride 103 mmol/L (98-107); Estimated CRCL calculation 13 ml/min; Estimated Glomerular Filt Rate 9; Glucose 118 mg/dL (65-110); Phosphorus 7.8 mg/dL (2.5-4.5); Potassium 5.2 mmol/L (3.4-5.0); Sodium 136 mmol/L (137-145)
[2022-06-08 09:08] LABS: Magnesium 2.4 mg/dL (1.6-2.3)
--- NOTE | 2022-06-08 09:31 | PM.PNPUL ---
Progress Note: A&P Assessment and Plan (1) Acute hypoxemic respiratory failure: Code(s): J96.01 - Acute respiratory failure with hypoxia Status: Acute (2) Acute renal failure: Code(s): N17.9 - Acute kidney failure, unspecified Status: Acute (3) Hemoptysis: Code(s): R04.2 - Hemoptysis Status: Acute Assessment and Plan: 81-year-old man with shortness of breath, generalized weakness, new onset anemia, worsening renal failure,? hematuria,? bilateral alveolar infiltrates on chest imaging studies with? progression over the last month? and hemoptysis.? 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 bronchoscopy showed grossly bloody BAL obtained from left upper lobe and right middle lobe. Serology screening still pending. Case discussed with Dr. Haynes. Efforts are underway to boost immune suppression with IV cyclophosphamide or rituximab if available. Plan: patient will be on prednisone 60 mg daily starting tomorrow. will continue to follow (4) Obesity: Code(s): E66.9 - Obesity, unspecified Status: Acute (5) Atrial fibrillation: Code(s): I48.91 - Unspecified atrial fibrillation Status: Acute (6) Chronic diastolic (congestive) heart failure: Code(s): I50.32 - Chronic diastolic (congestive) heart failure Status: Acute Subjective Date/time seen: 06/08/22 09:31 Interval history: patient without any new respiratory symptoms. Hemoptysis significantly less since last p.m.. Currently on nasal cannula down to 2 liters/minute. Review of Systems Review of Systems: All systems reviewed & are unremarkable except as noted in HPI and below ( In HPI and below) Exam Narrative: GENERAL APPEARANCE: Well developed, well nourished, alert and cooperative, and appears to be in no acute distress while on supplemental oxygen via nasal cannula SKIN: Inspection of the skin reveals no rashes, ulcerations or petechiae. HEENT: Sclerae anicteric and conjunctivae pink and moist. Extraocular movements were intact and pupils were equal, round, and reactive to light. The oral mucosa, hard and soft palate, tongue and posterior pharynx were normal. NECK: Supple. There was no thyroid enlargement, and no tenderness, or masses were felt. CHEST: Normal AP diameter and normal contour without any kyphoscoliosis. LUNGS: Auscultation of the lungs revealed essentially normal breath sounds with occasional tubular sounds at bases bilaterally. CARDIAC: There was a regular rate and rhythm without any murmurs. ABDOMEN: Soft and nontender with normal bowel sounds. There was no organomegaly. LYMPH NODES: No lymphadenopathy was appreciated in the neck EXTREMITIES: No cyanosis, clubbing or edema. NEUROLOGIC: Alert and oriented x 3. Normal affect. Objective Data Vital Signs Vital Signs: Vital Signs - 24 hr 06/07/22 09:41 06/07/22 10:11 06/07/22 12:41 Temperature 36.2 C L Pulse Rate 76 72 Respiratory Rate 20 Blood Pressure 108/72 Pulse Oximetry 92 Oxygen Delivery Nasal Cannula Nasal Cannula Oxygen Flow Rate 2 2 06/07/22 15:07 06/07/22 15:17 06/07/22 15:27 Temperature Pulse Rate 84 80 80 Respiratory Rate 18 23 H 21 H Blood Pressure 102/67 118/77 107/74 Pulse Oximetry 87 L 96 96 Oxygen Delivery Simple Face Mask Non-Rebreather Mask Non-Rebreather Mask Oxygen Flow Rate 10 10 8 06/07/22 15:37 06/07/22 15:47 06/07/22 15:57 Temperature Pulse Rate 79 76 84 Respiratory Rate 18 19 22 H Blood Pressure 113/77 116/85 112/80 Pulse Oximetry 99 95 92 Oxygen Delivery Non-Rebreather Mask Non-Rebreather Mask Nasal Cannula Oxygen Flow Rate 6 4 4 06/07/22 16:07 06/07/22 12:00 06/07/22 17:00 Temperature 36.8 C Pulse Rate 76 72 78 Respiratory Rate 19 18 Blood Pressure 119/85 110/93 H Pul
--- NOTE | 2022-06-08 09:34 | WPDANESPN ---
Anes - Prog Note Post-Op Date/Time: 06/08/22 09:34 Cardiovascular status: normal Respiratory status: normal Airway patency: baseline Mental status: baseline Post-Op hydration status: normal Vital Signs: Last Vital Signs Temp 36.6 C 06/08/22 06:00 Pulse 74 06/08/22 06:00 Resp 22 H 06/08/22 06:00 BP 109/82 06/08/22 06:00 Pulse Ox 94 06/08/22 06:00 O2 Del Method Nasal Cannula 06/07/22 20:00 O2 Flow Rate 2 06/07/22 20:00 Pain Score (VAS): 06/25 I/O: Intake & Output 06/07/22 06/08/22 06/08/22 23:59 07:59 15:59 Intake Total 100 340 Balance 100 340 Laboratory Tests 06/07/22 20:06 06/08/22 05:40 06/07/22 06/07/22 06/07/22 11:07 11:07 15:21 WBC 20.3 H RBC 2.42 L Hgb 7.5 L Hct 23.2 L MCV 95.9 MCH 31.0 MCHC 32.3 RDW 15.1 H Plt Count 250 MPV 9.8 PT INR Sodium 132 L Potassium 5.0 Chloride 99 Carbon Dioxide 22 Anion Gap 11 BUN 112 H D Creatinine 5.90 H Estim Creat Clear Calc 13 Estimated GFR 9 L Glucose 147 H Calcium 8.8 Phosphorus Magnesium Albumin Bronch Specimen Source Bronchial Fluid Color Bronchial Fluid Appearance Bronchial Neutrophils Bronchial Lymphocytes Bronchial Monocytes Bronchial Eosinophils Bronchial Macrophages Bronchial Other Cells Pneumocystis carinii Ag Pending 06/07/22 06/07/22 06/08/22 15:22 20:06 05:40 WBC RBC Hgb 7.4 L Hct 23.6 L MCV MCH MCHC RDW Plt Count MPV PT INR Sodium Potassium Chloride Carbon Dioxide Anion Gap BUN Creatinine 5.90 H Estim Creat Clear Calc 13 Estimated GFR 9 L Glucose Calcium Phosphorus Magnesium Albumin Bronch Specimen Source Bronchial lavage Bronchial Fluid Color Red Bronchial Fluid Appearance Bloody Bronchial Neutrophils 36 Bronchial Lymphocytes 19 Bronchial Monocytes Not Reportable Bronchial Eosinophils 1 Bronchial Macrophages 44 Bronchial Other Cells Not Reportable Pneumocystis carinii Ag 06/08/22 06/08/22 06/08/22 05:40 05:40 05:40 WBC RBC Hgb Hct MCV MCH MCHC RDW Plt Count MPV PT 15.5 H INR 1.3 Sodium 136 L Potassium 5.2 H Chloride 103 Carbon Dioxide 24 Anion Gap 9 BUN Pending Creatinine 6.00 H Estim Creat Clear Calc 13 Estimated GFR 9 L Glucose 118 H Calcium 8.6 Phosphorus 7.8 H Magnesium 2.4 H Albumin 3.2 L Bronch Specimen Source Bronchial Fluid Color Bronchial Fluid Appearance Bronchial Neutrophils Bronchial Lymphocytes Bronchial Monocytes Bronchial Eosinophils Bronchial Macrophages Bronchial Other Cells Pneumocystis carinii Ag Microbiology 06/04/22 22:57 Blood Blood Culture - Final Staphylococcus epidermis 06/05/22 13:24 Sputum Sputum Culture - Final 06/04/22 23:51 Urine Clean Catch Urine Culture - Final Post-procedural complaints: none Patient Feedback: Patient satisfied with anesthetic care.
[2022-06-08] MEDS: METOPROLOL TARTRATE 50 MG TAB PO ×2 (09:35→21:05)
[2022-06-08] MEDS: ACIDOPHILUS/BULGARICUS CHEWABLE TABLET 1 TABLET PO (09:35)
[2022-06-08] MEDS: LORATADINE 10 MG TABLET PO (09:36)
[2022-06-08] MEDS: FUROSEMIDE INJ 40 MG/4 ML VIAL IV PUSH (09:36)
[2022-06-08] MEDS: FAMOTIDINE 10 MG TABLET PO (09:36)
[2022-06-08] MEDS: OMEGA 3 POLYUNSAT FATTY ACIDS 1 GM CAP PO (09:36)
[2022-06-08] MEDS: MULTIVITAMINS /C LUTEIN (CENTRUM SILVER) TABLET *BKC 1 TAB PO (09:36)
[2022-06-08 09:41] LABS: Blood Urea Nitrogen 123 mg/dL (9-20)
--- NOTE | 2022-06-08 11:08 | P.PNNP_ITS ---
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 * extensive serologies ordered (MAT, ANCA, antiGBM-Ab...etc) * s/p pulse dose steroids * bronchoscopy (on 06/07/22) with findings of bleeding/hemmorhage as well * attempting to arrange for IV cytoxan * previous renal ultrasound and urine electrolytes noted * will eventually need renal biopsy * plan for initiation of [employer]/dialysis - Surgery consulted for HD catheter placement * follow repeat labs and UOP (2) Chronic kidney disease, stage IV (severe): Code(s): N18.4 - Chronic kidney disease, stage 4 (severe) Status: Chronic Assessment and Plan: * since 2019, creatinine has been running ~ 1.4 - 1.7mg/dl * however, in July 2021, it increased to 1.93mg/dl * then, in March 2022, it was 2.32mg/dl * on discharge in early May 2022, it was 3.3mg/dl * outpatient labs on 05/28/22, creatinine up to 4.4mg/dl * element of kidney disease progression possible * presumably due to HTN, vascular disease/CHF, and age * HOWEVER, see #1 (3) Acute exacerbation of congestive heart failure: Qualifiers: Heart failure type: unspecified Qualified Code(s): I50.9 - Heart fail ure, unspecified Code(s): I50.9 - Heart failure, unspecified Status: Acute Assessment and Plan: * gentle diuresis * continue fluid restriction * follow I/Os, daily weights, and respiratory status * if fails to improve with conservative therapy, may need more aggressive measures (i.e. dialysis) (4) Pneumonia: Qualifiers: Laterality: right Lung location: unspecified part of lung Pneumonia type: due to unspecified organism Qualified Code(s): J18.9 - Pneumonia, unspecified organism Code(s): J18.9 - Pneumonia, unspecified organism Status: Acute Assessment and Plan: * as suspected by admission imaging * on antibiotics * follow culture data (5) HTN (hypertension): Code(s): I10 - Essential (primary) hypertension Status: Chronic Assessment and Plan: * reasonable control at this time * attempt to keep in the 120 systolic or higher to possible improve renal blood flow * follow trend of hemodynamics (6) Anemia: Code(s): D64.9 - Anemia, unspecified Status: Chronic Assessment and Plan: * likely due to CKD +/- RAMIRO and acute illness * PRBC transfusion per protocol * start Epogen therapy * follow trend of H/H Long discussion (> 20 minutes) with patient -- due to concerns of pulmonary- renal syndrome, he received pulse dose steroids and attempting to arrange IV cytoxan infusion as well; unfortunately, his renal function continues to deteriorate and he likely needs renal replacement therapy as well as a renal biopsy to determine renal prognosis along with a definitive diagnosis. He appeared to voice understanding. Will continue to follow. Subjective Date/time seen: 06/08/22 11:08 Tolerated bronchoscopy yesterday with findings noted and case discussed with Dr. Barrow yesterday afternoon; attempting to arrange for IV cytoxan infusion; plan for dialysis init
--- NOTE | 2022-06-08 11:08 | PM.PNNEP ---
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7mg/dl however, in July 2021, it increased to 1.93mg/dl then, in March 2022, it was 2.32mg/dl on discharge in early May 2022, it was 3.3mg/dl outpatient labs on 05/28/22, creatinine up to 4.4mg/dl element of kidney disease progression possible presumably due to HTN, vascular disease/CHF, and age HOWEVER, see #1 (3) Acute exacerbation of congestive heart failure: Qualifiers: Heart failure type: unspecified Qualified Code(s): I50.9 - Heart failure, unspecified Code(s): I50.9 - Heart failure, unspecified Status: Acute Assessment and Plan: gentle diuresis continue fluid restriction follow I/Os, daily weights, and respiratory status if fails to improve with conservative therapy, may need more aggressive measures (i.e. dialysis) (4) Pneumonia: Qualifiers: Laterality: right Lung location: unspecified part of lung Pneumonia type: due to unspecified organism Qualified Code(s): J18.9 - Pneumonia, unspecified organism Code(s): J18.9 - Pneumonia, unspecified organism Status: Acute Assessment and Plan: as suspected by admission imaging on antibiotics follow culture data (5) HTN (hypertension): Code(s): I10 - Essential (primary) hypertension Status: Chronic Assessment and Plan: reasonable control at this time attempt to keep in the 120 systolic or higher to possible improve renal blood flow follow trend of hemodynamics (6) Anemia: Code(s): D64.9 - Anemia, unspecified Status: Chronic Assessment and Plan: likely due to CKD +/- RAMIRO and acute illness PRBC transfusion per protocol start Epogen therapy follow trend of H/H Long discussion (> 20 minutes) with patient -- due to concerns of pulmonary-renal syndrome, he received pulse dose steroids and attempting to arrange IV cytoxan infusion as well; unfortunately, his renal function continues to deteriorate and he likely needs renal replacement therapy as well as a renal biopsy to determine renal prognosis along with a definitive diagnosis. He appeared to voice understanding. Will continue to follow. Subjective Date/time seen: 06/08/22 11:08 Tolerated bronchoscopy yesterday with findings noted and case discussed with Dr. Barrow yesterday afternoon; attempting to arrange for IV cytoxan infusion; plan for dialysis initiation as well along with subsequent renal biopsy as well. Exam Narrative: General: WD/WN male in NAD Heart: normal S1 and S2; no rub Lungs: clear anteriorly and coarse at bases Abdomen: soft, nontender, nondistended, positive bowel sounds Extremities: no cyanosis or clubbing; trace edema Skin: no rash Objective Data Vital Signs Vital Signs: Vital Signs Temp Pulse Resp BP Pulse Ox O2 Del Method O2 Flow Rate
[2022-06-08] MEDS: EPOETIN ALFA-EPBX 10,000 UNITS/ML VIAL 10000 UNITS SUB-Q (12:22)
--- NOTE | 2022-06-08 14:10 | PM.CNGS ---
Assessment and Plan Assessment and plan (1) Acute renal failure: Code(s): N17.9 - Acute kidney failure, unspecified Status: Acute Assessment and Plan: await negative blood cx, will setup for placement of tunneled HD catheter History of Present Illness Consult details Consult date: 06/08/22 Reason for consult: other (renal failure) Requesting physician: Cm Haynes MD Narrative: The patient is an 81-year-old male with multiple medical issues presenting with worsening renal failure. The patient does have a history of chronic renal failure, however presents with acutely worsening function. The patient is also noted to have pneumonia and CHF exacerbation. Surgery now consulted for access for urgent hemodialysis. Review of Systems Constitutional: Constitutional: Reports as per HPI, Reports body ache(s), Denies chills, Reports fatigue, Reports fever(s), Denies increased appetite, Reports lethargy, Reports malaise, Reports night sweats, Reports poor appetite, Reports weakness, Denies weight gain and Denies weight loss Eyes: Eyes: Reports no additional eye complaints ENT: Reports system reviewed and no additional complaints, except as documented Cardiovascular: Cardiovascular: Reports as per HPI, Denies chest pain, Reports pedal edema, Reports dyspnea on exertion and Reports orthopnea Respiratory: Respiratory: Reports as per HPI, Reports dyspnea and Reports dyspnea on exertion Gastrointestinal: Gastrointestinal: Reports no additional gastrointestinal complaints Genitourinary: Genitourinary: Reports as per HPI Musculoskeletal: Musculoskeletal: Reports no additional musculoskeletal complaints Integumentary/Breasts: Skin/Breast: Reports system reviewed and no additional complaints, except as docu Neurologic: Reports system reviewed and no additional complaints, except as documented Psychiatric: Psychiatric: Reports no additional psychiatric complaints Endocrine: Endocrine: Reports no additional endocrine complaints Hematologic/Lymphatic: Hematologic/Lymphatic: Reports no additional hematologic/lymphatic complaints Allergic/Immunologic: Allergic/Immunologic: Reports no additional allergic/immunologic complaints [facility] Past Medical History Medical History Aortic stenosis, moderate Atrial fibrillation Atrial fibrillation CHF (congestive heart failure) DJD (degenerative joint disease) Dyspnea due to congestive heart failure Elevated lipids HLD (hyperlipidemia) HTN (hypertension) Hypertension Insomnia Insomnia Osteoarthritis Rheumatoid arthritis Surgical History Surgical History History of shoulder surgery History of total knee replacement History of total knee replacement Family History Family History Father Heart failure Father Family history of liver disease Diabetes mellitus Family history of kidney disease Mother Family history of diabetes mellitus in first degree relative Diabetes mellitus Family history of renal failure Other Family history of gout Hypertension Social History Social History Social History: Smoking packs per day: 0.5 Smoking cigarettes per day: 10.0 Years smoked: 5 Smoking pack-years: 2.50 Smoking status: Former smoker Tobacco type: cigarettes Second hand tobacco smoke exposure: Yes Smoking end date: 05/16/17 Alcohol intake: never Drinks per week: 1 Alcohol use details: Occasionally Substance use: never Substance use type: does not use Other substance usage details: alcohol - very rare Lack of Transportation: No Lack of Food: Never True Current Housing: I Have Housing Concerned About Future Housing: No Difficulty Paying Gas/Electric Bills: No Difficulty Paying for Meds: No Currently Unemplo
--- NOTE | 2022-06-08 14:11 | PM.IMPN ---
Progress Note: A&P Assessment and Plan (1) Congestive heart failure: Code(s): I50.9 - Heart failure, unspecified Status: Acute Assessment and Plan: ED-HPI narrative: Patient is a 81-year-old gentleman who presents the emergency department with chief complaint of generalized weakness.? The patient reports he was recently in the hospital for congestive heart failure and has noticed that he has been getting progressively weaker at home and has been getting more short of breath.? Patient states is worse with ambulation and improved with rest patient reports he has had a cough at home denies fever.? Patient states that when he was in the hospital recently he was being treated for pneumonia as well. 06/08/2022 interval history: 81 year male presented with generalized weakness with history of congestive heart failure patient has a preserved LV function on recent echo showed abnormal diastolic function, with elevated BNP of and 11,600, will gently diuresed the patient with Lasix 40 mg IV, patient is acute on chronic kidney disease will closely monitor kidney function, patient is seen by tallow maker recommending patient may need kidney biopsy to further evaluate and further recommendation to follow.x-ray suspicious for pneumonia and patient white count elevated, started the patient on doxycycline and ceftriaxone, last evening patient had developed hemoptysis seen by analytics developer suspect 2/2 alveolar hemarraghe due to anticoagulation xarelto, which now stopped, on 06/07 patient had bronchoscopies to further evaluate hemoptysis, 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 and patient was given high dose solumedrol 3g on 06/07 and will receive another 500mg today, also concern pay have autoimmune disease and recommended immune suppression therapy with IV cyclophosphamide, spoke with tallow maker he is plan to infuse tomorrow, today patient stats feeling better, not as short of breath, making urine, will continue to monitor, a PT OT evaluate the and further recommendation to follow (2) Acute kidney injury: Code(s): N17.9 - Acute kidney failure, unspecified Status: Acute Assessment and Plan: patient with acute on chronic kidney disease patient being diuresed will closely monitor kidney function (3) Hypertension: Code(s): I10 - Essential (primary) hypertension Status: Acute Assessment and Plan: resume patient's home medication and monitor (4) Pneumonia: Code(s): J18.9 - Pneumonia, unspecified organism Status: Acute Assessment and Plan: patient was recently discharged from the hospital high risk of healthcare associated pneumonia however patient white counts are not significantly elevated will start the patient on ceftriaxone and doxycycline, will follow-up blood and sputum culture (5) Atrial fibrillation: Qualifiers: Atrial fibrillation type: unspecified Qualified Code(s): I48.91 - Unspecified atrial fibrillation Code(s): I48.91 - Unspecified atrial fibrillation Status: Acute Assessment and Plan: rate is controlled anticoagulated with Xarelto Subjective Date/time seen: 06/08/22 14:11 06/08/2022 interval history: 81 year male presented with generalized weakness with history of congestive heart failure patient has a preserved LV function on recent echo showed abnormal diastolic function, with elevated BNP of and 11,600, will gently diuresed the patient with Lasix 40 mg IV, patient is acute on chronic kidney disease will closely monitor kidney function, patient is seen by tallow maker recommending patient may need kidney biopsy to further evaluate and further recommendation to follow.x-ray suspicious for pneumonia and patient white count elevated, started the patient on doxycycline and ceftriaxone, last evening patient had developed hemoptysis seen by analytics developer suspect 2/2 alveolar hemarraghe due to anticoagulation xarelto, which
--- NOTE | 2022-06-08 16:28 | WPDANESEPPF ---
Anes - Initial Pre Proc Eval Procedure: Operation Date: 06/07/22 14:00 Proposed Procedures p Flexible Bronchoscopy - Julien Barrow MD Operation Date: 06/09/22 10:00 Proposed Procedures p Insertion Tunneled Dialysis Catheter - Shweta Forman MD Date/Time: 06/08/22 16:28 Pre Op Diagnosis: Acute Hypoxic Respiratory Failure,CHF,Acute Kidney Patient Data Age: 81 Gender: M Height: 1.78 m Weight: 136.7 kg Last Vital Signs Temp 36.6 C 06/08/22 14:00 Pulse 76 06/08/22 14:00 Resp 20 06/08/22 14:00 BP 132/89 06/08/22 14:00 Pulse Ox 98 06/08/22 14:00 O2 Del Method Nasal Cannula 06/07/22 20:00 O2 Flow Rate 2 06/07/22 20:00 Allergies Allergy/AdvReac Type Severity Reaction Status Date / Time camphor [From Biofreeze] Allergy Intermediate Hives Verified 06/07/22 12:38 menthol [From Biofreeze] Allergy Intermediate Hives Verified 06/07/22 12:38 Home Medications Medication Instructions Recorded Confirmed Type cetirizine 10 mg capsule (Zyrtec) 10 mg PO DAILY #90 caps 11/24/21 06/05/22 Rx rivaroxaban 15 mg tablet (Xarelto) 15 mg PO DAILY #30 tabs 03/09/22 06/05/22 Rx Allergy Relief-D (cetirizine) 10 mg PO DAILY 05/16/22 06/05/22 History Centrum Men 1 cap PO DAILY 05/16/22 06/05/22 History Neuriva Plus 1 tab-cap PO DAILY 05/16/22 06/05/22 History [place] 3 Fish Oil 1 cap PO DAILY 05/16/22 06/05/22 History Probiotic Blend 1 cap PO DAILY 05/16/22 06/05/22 History amlodipine 5 mg tablet 5 mg PO DAILY 05/16/22 06/05/22 History famotidine 20 mg tablet 20 mg PO BID 05/16/22 06/05/22 History lisinopril 10 mg tablet 10 mg PO DAILY 05/16/22 06/05/22 History metoprolol tartrate 50 mg tablet 50 mg PO BID 01/01/23 01/21/23 History temazepam 15 mg capsule 15 mg PO PRN PRN Sleep 05/16/22 06/05/22 History tramadol 50 mg tablet 50 mg PO Q6-8H PRN Pain 05/16/22 06/05/22 History furosemide 40 mg tablet 40 mg PO DAILY #30 tabs 05/20/22 06/05/22 Rx Laboratory Tests 06/07/22 06/07/22 06/08/22 15:22 20:06 05:40 Hgb 7.4 g/dL L g/dL (14.0-18.0) Hct 23.6 % L % (42.0-52.0) PT INR Sodium Potassium Chloride Carbon Dioxide Anion Gap BUN Creatinine 5.90 mg/dL H mg/dL (0.7-1.3) Estim Creat Clear Calc 13 ml/min ml/min Estimated GFR 9 L (59 - ) Glucose Calcium Phosphorus Magnesium Albumin Bronch Specimen Source Bronchial lavage Bronchial Fluid Color Red Bronchial Fluid Appearance Bloody Bronchial Neutrophils 36 % % Bronchial Lymphocytes 19 % % Bronchial Monocytes Not Reportable Bronchial Eosinophils 1 % % Bronchial Macrophages 44 Bronchial Other Cells Not Reportable 06/08/22 06/08/22 06/08/22 05:40 05:40 05:40 Hgb Hct PT 15.5 Seconds H Seconds (11.1-14.7) INR 1.3 Sodium 136 mmol/L L mmol/L (137-145) Potassium 5.2 mmol/L H mmol/L (3.4-5.0) Chloride 103 mmol/L mmol/L (98-107) Carbon Dioxide 24 mmol/L mmol/L (22-30) Anion Gap 9 mmol/L mmol/L (8-16) BUN 123 mg/dL H D mg/dL (9-20) Creatinine 6.00 mg/dL H mg/dL (0.7-1.3) Estim Creat Clear Calc 13 ml/min ml/min Estimated GFR 9 L (59 - ) Glucose 118 mg/dL H mg/dL (65-110) Calcium 8.6 mg/dL mg/dL (8.4-10.2) Phosphorus 7.8 mg/dL H mg/dL (2.5-4.5) Magnesium 2.4 mg/dL H mg/dL (1.6-2.3) Albumin 3.2 g/dL L g/dL (3.5-5.1) Bronch Specimen Source Bronchial Fluid Color Bronchial Fluid Appearance Bronchial Neutrophils Bronchial Lymphocytes Bronchial Monocytes Bronchial Eosinophi
[2022-06-08 19:05] LABS: Hepatitis B Core Ab Total Nonreactive (Nonreactive)
[2022-06-08 21:30] LABS: Vancomycin Trough 13.4 ug/mL (10.0-20.0)
[2022-06-09] VITALS (28 sets, daily range): BP systolic 98–137; BP diastolic 45–98; PULSE 61–104; RESP 14–20; TEMP 36–36.9; O2SAT 94–100
[2022-06-09 05:54] LABS: Hematocrit 24.5 % (42.0-52.0); Hemoglobin 7.7 g/dL (14.0-18.0); Mean Corpuscular HGB Conc 31.4 g/dl (32-36); Mean Corpuscular Hemoglobin 31.6 pg (26-34); Mean Corpuscular Volume 100.4 fl (80-100); Mean Platelet Volume 9.8 fl (7.4-10.4); Platelet Count Result 244 k/mm3 (150-375); Red Blood Count 2.44 M/mm3 (4.6-6.20); Red Cell Distribution Width 15.8 % (11.5-14.5)
[2022-06-09 06:03] LABS: Chloride 101 mmol/L (98-107); INR 1.4; Prothrombin Time 16.2 Seconds (11.1-14.7)
[2022-06-09 06:35] LABS: Albumin Level 3.5 g/dL (3.5-5.1); Anion Gap 11 mmol/L (8-16); Calcium 8.5 mg/dL (8.4-10.2); Carbon Dioxide 24 mmol/L (22-30); Estimated CRCL calculation 13 ml/min; Estimated Glomerular Filt Rate 9; Glucose 143 mg/dL (65-110); Magnesium 2.3 mg/dL (1.6-2.3); Phosphorus 7.3 mg/dL (2.5-4.5); Potassium 5.2 mmol/L (3.4-5.0); Sodium 136 mmol/L (137-145)
[2022-06-09 06:37] LABS: Blood Urea Nitrogen 129 mg/dL (9-20)
[2022-06-09] MEDS: SALINE LOCK FLUSH 10 ML IV PUSH (08:13)
--- NOTE | 2022-06-09 10:17 | PC.NURSE ---
Pt to preop at 1018 via his bed
[2022-06-09] MEDS: SODIUM CHLORIDE 0.9% IV 500 ML 30 ML IV CONT (10:45)
--- NOTE | 2022-06-09 10:45 | WPDHPUPDATE1 ---
History and Physical Update Update Date/Time: 06/09/22 10:45 History and Physical has been reviewed, including an updated exam of the patient. There are NO changes in the patient's condition. Risks, benefits, and alternatives have been discussed and questions answered. Patient agrees to proceed with procedure.
--- NOTE | 2022-06-09 11:16 | P.PNAN_ITS ---
Anes - Eval Final PreProcedure Day of Procedure 06/09/22 11:16 Patient weight: normal Heart: regular rate and rhythm Lungs: clear to auscultation Airway: Mallampati scale class III Neurological: alert and oriented Last oral intake: >/= 8 hours ASA classification: IV Emergent: no Anesthetic plan: proceed Anesthesia type and monitoring: general GIVS (may use LMA) Results Review: All pre-operative results and documents have been reviewed as part of the pre- operative evaluation. Informed Consent: The patient's anesthetic plan and its attendant risks and benefits were discussed with the patient/family/POA. Questions were solicited and answers provided to the satisfaction of the patient/family/POA.
--- NOTE | 2022-06-09 11:31 | PM.PNPUL ---
Progress Note: A&P Assessment and Plan (1) Acute hypoxemic respiratory failure: Code(s): J96.01 - Acute respiratory failure with hypoxia Status: Acute (2) Acute renal failure: Code(s): N17.9 - Acute kidney failure, unspecified Status: Acute (3) Hemoptysis: Code(s): R04.2 - Hemoptysis Status: Acute Assessment and Plan: 81-year-old man with shortness of breath, generalized weakness, new onset anemia, worsening renal failure,? hematuria,? bilateral alveolar infiltrates on chest imaging studies with? progression over the last month? and hemoptysis.? The patient's history in conjunction with the diagnostic studies and BAL findings suggest? pulmonary renal syndrome; patient has received IV steroid pulse therapy; currently on oral prednisone 60 mg daily, induction immunosuppressive treatment with IV cyclophosphamide as arranged by Dr. Haynes. Plan: repeat chest x-ray in a.m. (4) Obesity: Code(s): E66.9 - Obesity, unspecified Status: Acute (5) Atrial fibrillation: Code(s): I48.91 - Unspecified atrial fibrillation Status: Acute (6) Chronic diastolic (congestive) heart failure: Code(s): I50.32 - Chronic diastolic (congestive) heart failure Status: Acute Subjective Date/time seen: 06/09/22 11:31 Interval history: Respiratory jennings patient doing better. Less coughing, few episodes of blood tinged sputum. Remaining on supplemental oxygen via nasal cannula. He is to receive IV cyclophosphamide today. scheduled to undergo kidney biopsy. Review of Systems Review of Systems: All systems reviewed & are unremarkable except as noted in HPI and below ( HPI and below.) Exam Narrative: GENERAL APPEARANCE: Well developed, well nourished, alert and cooperative, and appears to be in no acute distress while on supplemental oxygen via nasal cannula SKIN: Inspection of the skin reveals no rashes, ulcerations or petechiae. HEENT: Sclerae anicteric and conjunctivae pink and moist. Extraocular movements were intact and pupils were equal, round, and reactive to light. The oral mucosa, hard and soft palate, tongue and posterior pharynx were normal. NECK: Supple. There was no thyroid enlargement, and no tenderness, or masses were felt. CHEST: Normal AP diameter and normal contour without any kyphoscoliosis. LUNGS: Auscultation of the lungs revealed essentially normal breath sounds with occasional tubular sounds at bases bilaterally. CARDIAC: There was a regular rate and rhythm without any murmurs. ABDOMEN: Soft and nontender with normal bowel sounds. There was no organomegaly. LYMPH NODES: No lymphadenopathy was appreciated in the neck EXTREMITIES: No cyanosis, clubbing or edema. NEUROLOGIC: Alert and oriented x 3. Normal affect. Objective Data Vital Signs Vital Signs: Vital Signs - 24 hr 06/08/22 12:00 06/08/22 14:00 06/08/22 16:00 Temperature 36.6 C Pulse Rate 73 76 68 Respiratory Rate 20 Blood Pressure 132/89 Pulse Oximetry 98 Oxygen Delivery Oxygen Flow Rate 06/08/22 20:00 06/09/22 00:00 06/09/22 04:00 Temperature Pulse Rate 71 71 77 Respiratory Rate Blood Pressure Pulse Oximetry Oxygen Delivery Oxygen Flow Rate 06/09/22 10:41 Temperature 36.6 C Pulse Rate 80 Respiratory Rate 20 Blood Pressure 113/84 Pulse Oximetry 97 Oxygen Delivery Nasal Cannula Oxygen Flow Rate 3 Intake/Output Intake/Output: Intake & Output 06/06/22 06/07/22 06/08/22 06/09/22 23:59 23:59 23:59 23:59 Intake Total 2522 536 820 240 Output Total 200 800 750 Balance 2322 536 20 -510 Meds/Results Medications: Active Medications Generic Name Dose Route Start Last Admin Trade Name Freq PRN Reason Stop Dose Admin Alteplase, Recombinant 2 mg 06/07/22 10:28 06/07/22 11:01 Alteplase 2 Mg Vial (Cathflo) IV PUSH 2 mg ONCE PRN Administration Line Occlusion Amlodipine Besylate 5 mg 06/05/22 09:00 0
[2022-06-09] MEDS: ceFAZolin SODIUM 1 GM VIAL (12:11)
[2022-06-09] MEDS: HEPARIN SODIUM, PORCINE 10,000 UNITS/10 ML VIAL 4000 UNITS IV PUSH (12:14)
[2022-06-09] MEDS: BUPIVACAINE/EPINEPHRINE 0.5% 30 ML VIAL 10 ML INFILTRATE (12:18)
--- NOTE | 2022-06-09 12:37 | W.PM.PROC2 ---
Procedure Note - Detailed Date of Procedure 06/09/22 Pre-op Diagnosis renal failure Post-op Diagnosis Same Procedure Performed placement of 28 cm tunneled hemodialysis catheter in right internal jugular vein under both ultrasound and fluroscopic guidance Surgeon Shweta Forman MD Anesthesia General and Local Indications 81 y/o M presenting c renal failure necessitating urgent hemodialysis Findings 1st stick RIJ Description of Procedure Patient was taken to the operating room and placed in the supine position. After adequate induction of general anesthesia, the patient was prepped and draped in normal sterile fashion. A time-out was then done to verify the patient's identity as well as the procedure being performed. I began by using the SonoSite and locating the right internal jugular vein. Once this was done, I localized the overlying skin. I then made a small incision in the skin. I then gained access into the right internal jugular vein with an 18 gauge needle. At this point, I threaded the guidewire into the right internal jugular vein. Placement of the guidewire was confirmed by both ultrasound and fluoroscopic guidance. I then went ahead and measured the 28 cm tunneled dialysis catheter to our stick site in the right neck. I then localized the tract going from the right chest to the right neck. I then made a small incision in the right chest and tunneled the catheter to the right neck. I then serially dilated the right internal jugular vein under fluoroscopic guidance. Once adequately dilated, I placed the dilating sheath over the guidewire into the right internal jugular vein under fluoroscopic visualization. Once this was noted to be in good position, I removed both the guidewire and dilator, now just leaving the sheath in the vein. I then went ahead and fed the previously tunneled catheter into the sheath. Once the catheter was fed and positioned correctly, I went ahead and peeled the sheath away. Final fluoroscopic view showed the catheter in good position from its insertion point in the right chest to its termination in the atrial caval junction. It was noted there was no kinking of the catheter. I was able to easily draw and flush from both ports of the catheter. I placed 2.2 and 2.3 cc of final heparin flush into each port as marked. The catheter was then sutured into place and the incision in the neck was closed with 4 O Monocryl subcuticular suture. The patient tolerated the procedure well and will be transferred to the PACU in stable condition. Sterile dressing was placed on the catheter. Portable chest x-ray will be done in the recovery room. Implants 28 cm tunneled hemodialysis catheter Estimated Blood Loss 10 Drains No Packing No Pathology None sent Complications No immediate complications Condition Stable Disposition PACU [facility] Billing Surgery - Charge Forward: Surgery Billing
--- NOTE | 2022-06-09 13:35 | PC.NURSE ---
Pt back to room from PACU. Resting at this time.
--- NOTE | 2022-06-09 14:13 | PCOTNOTE ---
Attempted occupational therapy treatment. Patient was in dialysis at this time. Following.
--- NOTE | 2022-06-09 14:34 | P.PNNP_ITS ---
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 * extensive serologies ordered (MAT, ANCA, antiGBM-Ab...etc) * s/p pulse dose steroids and on oral prednisone * bronchoscopy (on 06/07/22) with findings of bleeding/hemorrhage as well * attempting to arrange for IV cytoxan * previous renal ultrasound and urine electrolytes noted * attmept to schedule renal biopsy tomorrow * s/p HD catheter placement - HD today * follow repeat labs and UOP (2) Chronic kidney disease, stage IV (severe): Code(s): N18.4 - Chronic kidney disease, stage 4 (severe) Status: Chronic Assessment and Plan: * since 2019, creatinine has been running ~ 1.4 - 1.7mg/dl * however, in July 2021, it increased to 1.93mg/dl * then, in March 2022, it was 2.32mg/dl * on discharge in early May 2022, it was 3.3mg/dl * outpatient labs on 05/28/22, creatinine up to 4.4mg/dl * element of kidney disease progression possible * presumably due to HTN, vascular disease/CHF, and age * HOWEVER, see #1 (3) Acute exacerbation of congestive heart failure: Qualifiers: Heart failure type: unspecified Qualified Code(s): I50.9 - Heart failure, unspecified Code(s): I50.9 - Heart failure, unspecified Status: Acute Assessment and Plan: * gentle diuresis * continue fluid restriction * follow I/Os, daily weights, and respiratory status * fluid removal with HD as well (4) Pneumonia: Qualifiers: Laterality: right Lung location: unspecified part of lung Pneumonia type: due to unspecified organism Qualified Code(s): J18.9 - Pneumonia, unspec ified organism Code(s): J18.9 - Pneumonia, unspecified organism Status: Acute Assessment and Plan: * as suspected by admission imaging * on antibiotics * follow culture data (5) HTN (hypertension): Code(s): I10 - Essential (primary) hypertension Status: Chronic Assessment and Plan: * reasonable control at this time * attempt to keep in the 120 systolic or higher to possible improve renal blood flow * follow trend of hemodynamics (6) Anemia: Code(s): D64.9 - Anemia, unspecified Status: Chronic Assessment and Plan: * likely due to CKD +/- RAMIRO and acute illness * PRBC transfusion per protocol * on Epogen therapy * follow trend of H/H Will continue to follow. Subjective Date/time seen: 06/09/22 14:34 S/P tunneled HD catheter placement earlier today and currently tolerating dialy sis treatment at the time of my visit (seen on HD at ~ 2:25PM); seems to be doing reasonably well; initially scehduled for chemotherapy (IV cytoxan) today but this may be deferred to tomorrow given the fact he is getting dialysis currently. Exam Narrative: General: WD/WN male in NAD Heart: normal S1 and S2; no rub Lungs: clear anteriorly and coarse at bases Abdomen: soft, nontender, nondistended, positive bowel sounds Extremities: no cyanosis or clubbing; trace edema Skin: warm and dry Objective Data Vital Signs Karuna
--- NOTE | 2022-06-09 14:34 | PM.PNNEP ---
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 extensive serologies ordered (MAT, ANCA, antiGBM-Ab...etc) s/p pulse dose steroids and on oral prednisone bronchoscopy (on 06/07/22) with findings of bleeding/hemorrhage as well attempting to arrange for IV cytoxan previous renal ultrasound and urine electrolytes noted attmept to schedule renal biopsy tomorrow s/p HD catheter placement - HD today follow repeat labs and UOP (2) Chronic kidney disease, stage IV (severe): Code(s): N18.4 - Chronic kidney disease, stage 4 (severe) Status: Chronic Assessment and Plan: since 2019, creatinine has been running ~ 1.4 - 1.7mg/dl however, in July 2021, it increased to 1.93mg/dl then, in March 2022, it was 2.32mg/dl on discharge in early May 2022, it was 3.3mg/dl outpatient labs on 05/28/22, creatinine up to 4.4mg/dl element of kidney disease progression possible presumably due to HTN, vascular disease/CHF, and age HOWEVER, see #1 (3) Acute exacerbation of congestive heart failure: Qualifiers: Heart failure type: unspecified Qualified Code(s): I50.9 - Heart failure, unspecified Code(s): I50.9 - Heart failure, unspecified Status: Acute Assessment and Plan: gentle diuresis continue fluid restriction follow I/Os, daily weights, and respiratory status fluid removal with HD as well (4) Pneumonia: Qualifiers: Laterality: right Lung location: unspecified part of lung Pneumonia type: due to unspecified organism Qualified Code(s): J18.9 - Pneumonia, unspecified organism Code(s): J18.9 - Pneumonia, unspecified organism Status: Acute Assessment and Plan: as suspected by admission imaging on antibiotics follow culture data (5) HTN (hypertension): Code(s): I10 - Essential (primary) hypertension Status: Chronic Assessment and Plan: reasonable control at this time attempt to keep in the 120 systolic or higher to possible improve renal blood flow follow trend of hemodynamics (6) Anemia: Code(s): D64.9 - Anemia, unspecified Status: Chronic Assessment and Plan: likely due to CKD +/- RAMIRO and acute illness PRBC transfusion per protocol on Epogen therapy follow trend of H/H Will continue to follow. Subjective Date/time seen: 06/09/22 14:34 S/P tunneled HD catheter placement earlier today and currently tolerating dialysis treatment at the time of my visit (seen on HD at ~ 2:25PM); seems to be doing reasonably well; initially scehduled for chemotherapy (IV cytoxan) today but this may be deferred to tomorrow given the fact he is getting dialysis currently. Exam Narrative: General: WD/WN male in NAD Heart: normal S1 and S2; no rub Lungs: clear anteriorly and coarse at bases Abdomen: soft, nontender, nondistended, positive bowel sounds Extremities: no cyanosis or clubbing; trace edema Skin: warm and dry Objective Data Vital Signs Vital Signs: Vital Signs Temp Pulse Resp BP Pulse Ox O2 Del Method O2 Flow Rate 06/09/22 14:00 98.1 F 61 20 121/71 98 06/09/22 13:15 88 14 127/74 98 Nasal Cannula 2 06/09/22 13:00 78 16 100/72 94 Nasal Cannula 2 06/09/22 12:47 96 Room Air 06/09/22 12:45 82 14 113/72 100 Simple Face Mask 6 06/09/22 12:31 97.1 F L 79 16 108/70 94 Simple Face Mask 6 06/09/22 08:00 81 06/09/22 10:41 97.9 F 80 20 113/84 97 Nasal Cannula 3 06/09/22
--- NOTE | 2022-06-09 14:59 | PC.NURSE ---
Pt transported to dialysis room 308 at 1400
--- NOTE | 2022-06-09 15:02 | PM.IMPN ---
Progress Note: A&P Assessment and Plan (1) Congestive heart failure: Code(s): I50.9 - Heart failure, unspecified Status: Acute Assessment and Plan: ED-HPI narrative: Patient is a 81-year-old gentleman who presents the emergency department with chief complaint of generalized weakness.? The patient reports he was recently in the hospital for congestive heart failure and has noticed that he has been getting progressively weaker at home and has been getting more short of breath.? Patient states is worse with ambulation and improved with rest patient reports he has had a cough at home denies fever.? Patient states that when he was in the hospital recently he was being treated for pneumonia as well. 06/09/2022 interval history: 81 year male presented with generalized weakness with history of congestive heart failure patient has a preserved LV function on recent echo showed abnormal diastolic function, with elevated BNP of and 11,600, will gently diuresed the patient with Lasix 40 mg IV, patient is acute on chronic kidney disease will closely monitor kidney function, patient is seen by recycling assistant recommending patient may need kidney biopsy to further evaluate and further recommendation to follow.x-ray suspicious for pneumonia and patient white count elevated, started the patient on doxycycline and ceftriaxone, last evening patient had developed hemoptysis seen by diesel locomotive firer/fireman suspect 2/2 alveolar hemarraghe due to anticoagulation xarelto, which now stopped, on 06/07 patient had bronchoscopies to further evaluate hemoptysis, 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 and patient was given high dose solumedrol 3g on 06/07 and will receive another 500mg on 06/08, , also concern may have autoimmune disease and recommended immune suppression therapy with IV cyclophosphamide, discussed with recycling assistant he wants to have dialysis 1st and today patient scheduled for tunneled catheter and diarrhea may have a dialysis, also spoke with recycling assistant he is plan to infuse tomorrow, today patient stats feeling better, not as short of breath, making urine, will continue to monitor, a PT OT evaluate the and further recommendation to follow (2) Acute kidney injury: Code(s): N17.9 - Acute kidney failure, unspecified Status: Acute Assessment and Plan: patient with acute on chronic kidney disease patient being diuresed will closely monitor kidney function (3) Hypertension: Code(s): I10 - Essential (primary) hypertension Status: Acute Assessment and Plan: resume patient's home medication and monitor (4) Pneumonia: Code(s): J18.9 - Pneumonia, unspecified organism Status: Acute Assessment and Plan: patient was recently discharged from the hospital high risk of healthcare associated pneumonia however patient white counts are not significantly elevated will start the patient on ceftriaxone and doxycycline, will follow-up blood and sputum culture (5) Atrial fibrillation: Qualifiers: Atrial fibrillation type: unspecified Qualified Code(s): I48.91 - Unspecified atrial fibrillation Code(s): I48.91 - Unspecified atrial fibrillation Status: Acute Assessment and Plan: rate is controlled anticoagulated with Xarelto Subjective Date/time seen: 06/09/22 15:02 ED-HPI narrative: Patient is a 81-year-old gentleman who presents the emergency department with chief complaint of generalized weakness.? The patient reports he was recently in the hospital for congestive heart failure and has noticed that he has been getting progressively weaker at home and has been getting more short of breath.? Patient states is worse with ambulation and improved with rest patient reports he has had a cough at home denies fever.? Patient states that when he was in the hospital recently he was being treated for pneumonia as well. 06/09/2022 interval history: 81 year male presented with ge
[2022-06-09 15:14] LABS: SM Antibody <1.0; SM/RNP Antibody <1.0
[2022-06-09 19:07] LABS: Anti Glomerular Basement Memb <1.0 AI (<1.0)
[2022-06-09] MEDS: METOPROLOL TARTRATE 50 MG TAB PO (20:13)
[2022-06-09] MEDS: traMADol HCL (*CRX) 50 MG TABLET PO (20:14)
[2022-06-09] MEDS: PHYTONADIONE INJ 10 MG/ML AMP SUB-Q (20:14)
[2022-06-10] VITALS (12 sets, daily range): BP systolic 124–140; BP diastolic 82–104; PULSE 79–96; RESP 18–20; TEMP 36.3–36.8; O2SAT 94–97
[2022-06-10] MEDS: BENZONATATE 100 MG CAPSULE PO (03:23)
[2022-06-10] MEDS: SALINE LOCK FLUSH 10 ML IV PUSH ×3 (05:13→20:40)
[2022-06-10 05:41] LABS: Mean Corpuscular Hemoglobin 31.5 pg (26-34); Mean Corpuscular Volume 98.4 fl (80-100); Mean Platelet Volume 9.4 fl (7.4-10.4); Platelet Count Result 210 k/mm3 (150-375); Red Blood Count 2.54 M/mm3 (4.6-6.20); Red Cell Distribution Width 15.6 % (11.5-14.5); White Blood Count 12.9 K/mm3 (4.5-10.0)
[2022-06-10 05:50] LABS: INR 1.3; Prothrombin Time 15.4 Seconds (11.1-14.7)
[2022-06-10 05:51] LABS: Partial Thromboplastin Time 27.9 SECONDS (22.3-36.8)
[2022-06-10 06:01] LABS: Albumin Level 3.4 g/dL (3.5-5.1); Anion Gap 4 mmol/L (8-16); Blood Urea Nitrogen 78 mg/dL (9-20); Calcium 8.1 mg/dL (8.4-10.2); Carbon Dioxide 30 mmol/L (22-30); Chloride 99 mmol/L (98-107); Estimated CRCL calculation 21 ml/min; Estimated Glomerular Filt Rate 16; Glucose 108 mg/dL (65-110); Magnesium 2.1 mg/dL (1.6-2.3); Phosphorus 5.2 mg/dL (2.5-4.5); Potassium 4.4 mmol/L (3.4-5.0); Sodium 133 mmol/L (137-145)
[2022-06-10 09:18] LABS: RNP Antibodies <1.0; SS-A <1.0; SS-B <1.0
[2022-06-10] MEDS: FAMOTIDINE 10 MG TABLET PO (10:03)
[2022-06-10] MEDS: ACIDOPHILUS/BULGARICUS CHEWABLE TABLET 1 TABLET PO (10:04)
[2022-06-10] MEDS: MULTIVITAMINS /C LUTEIN (CENTRUM SILVER) TABLET *BKC 1 TAB PO (10:04)
[2022-06-10] MEDS: lisinopriL 10 MG TABLET PO (10:04)
[2022-06-10] MEDS: predniSONE 20 MG TABLET 60 MG PO (10:04)
[2022-06-10] MEDS: LORATADINE 10 MG TABLET PO (10:04)
[2022-06-10] MEDS: OMEGA 3 POLYUNSAT FATTY ACIDS 1 GM CAP PO (10:04)
[2022-06-10] MEDS: FUROSEMIDE INJ 40 MG/4 ML VIAL IV PUSH (10:05)
[2022-06-10] MEDS: METOPROLOL TARTRATE 50 MG TAB PO ×2 (10:05→20:37)
--- NOTE | 2022-06-10 10:55 | PM.PNPUL ---
Progress Note: A&P Assessment and Plan (1) Acute hypoxemic respiratory failure: Code(s): J96.01 - Acute respiratory failure with hypoxia Status: Acute (2) Acute renal failure: Code(s): N17.9 - Acute kidney failure, unspecified Status: Acute (3) Hemoptysis: Code(s): R04.2 - Hemoptysis Status: Acute Assessment and Plan: 81-year-old man with shortness of breath, generalized weakness, new onset anemia, worsening renal failure,? hematuria,? bilateral alveolar infiltrates on chest imaging studies with? progression over the last month? and hemoptysis.? The patient's history in conjunction with the diagnostic studies and BAL findings suggest? pulmonary renal syndrome; patient has received IV steroid pulse therapy; currently on oral prednisone 60 mg daily, induction immunosuppressive treatment with IV cyclophosphamide as arranged by Dr. Haynes. had hemodialysis yesterday. Scheduled for kidney biopsy. Serology pending. Respiratory status improving slowly. Chest x-ray showed partial clearing of bilateral alveolar infiltrate. Plan: Continue with same treatment. (4) Obesity: Code(s): E66.9 - Obesity, unspecified Status: Acute (5) Atrial fibrillation: Code(s): I48.91 - Unspecified atrial fibrillation Status: Acute (6) Chronic diastolic (congestive) heart failure: Code(s): I50.32 - Chronic diastolic (congestive) heart failure Status: Acute Subjective Date/time seen: 06/10/22 10:55 Interval history: patient has no new respiratory symptoms. Remaining on supplemental oxygen at 2 liters/minute. Coughing up dark phlegm but less than before. Underwent dialysis yesterday. Review of Systems Review of Systems: All systems reviewed & are unremarkable except as noted in HPI and below ( HPI and below.) Exam Narrative: GENERAL APPEARANCE: Well developed, well nourished, alert and cooperative, and appears to be in no acute distress while on supplemental oxygen via nasal cannula SKIN: Inspection of the skin reveals no rashes, ulcerations or petechiae. HEENT: Sclerae anicteric and conjunctivae pink and moist. Extraocular movements were intact and pupils were equal, round, and reactive to light. The oral mucosa, hard and soft palate, tongue and posterior pharynx were normal. NECK: Supple. There was no thyroid enlargement, and no tenderness, or masses were felt. CHEST: Normal AP diameter and normal contour without any kyphoscoliosis. LUNGS: Auscultation of the lungs revealed essentially normal breath sounds with occasional tubular sounds at bases bilaterally. CARDIAC: There was a regular rate and rhythm without any murmurs. ABDOMEN: Soft and nontender with normal bowel sounds. There was no organomegaly. LYMPH NODES: No lymphadenopathy was appreciated in the neck EXTREMITIES: No cyanosis, clubbing or edema. NEUROLOGIC: Alert and oriented x 3. Normal affect. Objective Data Vital Signs Vital Signs: Vital Signs - 24 hr 06/09/22 12:31 06/09/22 12:45 06/09/22 12:47 Temperature 36.2 C L Pulse Rate 79 82 Respiratory Rate 16 14 Blood Pressure 108/70 113/72 Pulse Oximetry 94 100 96 Oxygen Delivery Simple Face Mask Simple Face Mask Room Air Oxygen Flow Rate 6 6 06/09/22 13:00 06/09/22 13:15 06/09/22 14:00 Temperature 36.7 C Pulse Rate 78 88 61 Respiratory Rate 16 14 20 Blood Pressure 100/72 127/74 121/71 Pulse Oximetry 94 98 98 Oxygen Delivery Nasal Cannula Nasal Cannula Oxygen Flow Rate 2 2 06/09/22 13:57 06/09/22 13:51 06/09/22 14:06 Temperature 36.9 C Pulse Rate 82 69 Respiratory Rate 20 Blood Pressure 129/75 135/76 Pulse Oximetry Oxygen Delivery Oxygen Flow Rate 2 06/09/22 14:20 06/09/22 14:40 06/09/22 15:00 Temperature Pulse Rate 81 79 88 Respiratory Rate Blood Pressure 137/98 H 127/89 133/89 Pulse Oximetry Oxygen Delivery Oxygen Flow Rate 06/09/22 15:20 06/09/22 15:40 06/09/22
--- NOTE | 2022-06-10 12:56 | PM.PNNEP ---
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 extensive serologies ordered (MAT, ANCA, antiGBM-Ab...etc) s/p pulse dose steroids and on oral prednisone bronchoscopy (on 06/07/22) with findings of bleeding/hemorrhage as well IV cytoxan today previous renal ultrasound and urine electrolytes noted s/p renal biopsy today - hopefully some preliminary results by tomorrow s/p HD catheter placement (on 06/09/22) HD yesterday and plan HD tomorrow follow repeat labs and UOP (2) Chronic kidney disease, stage IV (severe): Code(s): N18.4 - Chronic kidney disease, stage 4 (severe) Status: Chronic Assessment and Plan: since 2019, creatinine has been running ~ 1.4 - 1.7mg/dl however, in July 2021, it increased to 1.93mg/dl then, in March 2022, it was 2.32mg/dl on discharge in early May 2022, it was 3.3mg/dl outpatient labs on 05/28/22, creatinine up to 4.4mg/dl element of kidney disease progression possible presumably due to HTN, vascular disease/CHF, and age HOWEVER, see #1 (3) Acute exacerbation of congestive heart failure: Qualifiers: Heart failure type: unspecified Qualified Code(s): I50.9 - Heart failure, unspecified Code(s): I50.9 - Heart failure, unspecified Status: Acute Assessment and Plan: gentle diuresis continue fluid restriction follow I/Os, daily weights, and respiratory status fluid removal with HD as well (4) Pneumonia: Qualifiers: Laterality: right Lung location: unspecified part of lung Pneumonia type: due to unspecified organism Qualified Code(s): J18.9 - Pneumonia, unspecified organism Code(s): J18.9 - Pneumonia, unspecified organism Status: Acute Assessment and Plan: as suspected by admission imaging on antibiotics follow culture data (5) HTN (hypertension): Code(s): I10 - Essential (primary) hypertension Status: Chronic Assessment and Plan: reasonable control at this time attempt to keep in the 120 systolic or higher to possible improve renal blood flow follow trend of hemodynamics (6) Anemia: Code(s): D64.9 - Anemia, unspecified Status: Chronic Assessment and Plan: likely due to CKD +/- RAMIRO and acute illness PRBC transfusion per protocol on Epogen therapy follow trend of H/H Will continue to follow. Subjective Date/time seen: 06/10/22 12:56 Tolerated dialysis treatment yesterday afternoon and renal biopsy earlier today; due to get IV cytoxan today; appears to be feeling reasonable well at the time of my visit; no acute issues/events overnight or earlier this morning. Exam Narrative: General: WD/WN male in NAD Heart: normal S1 and S2; no rub Lungs: clear anteriorly and coarse at bases Abdomen: soft, nontender, nondistended, positive bowel sounds Extremities: no cyanosis or clubbing; trace edema Skin: warm and intact Objective Data Vital Signs Vital Signs: Vital Signs Temp Pulse Resp BP Pulse Ox O2 Del Method O2 Flow Rate 06/10/22 12:00 81 06/10/22 12:19 88 140/104 H 97 06/10/22 12:18 86 124/85 97 06/10/22 10:05 90 06/10/22 08:00 86 06/10/22 05:18 98.2 F 79 18 136/82 94 06/10/22 04:00 81 06/10/22 00:00 93 06/09/22 20:00 87 18 95 Nasal Cannula 2 06/09/22 20:00 83 06/09/22 20:42 97.9 F 87 18 98/45 L 95 06/09/22 20:13 73 06/09/22 16:00 83 06/09/22 17:31 97.8 F
--- NOTE | 2022-06-10 12:56 | P.PNNP_ITS ---
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 * extensive serologies ordered (MAT, ANCA, antiGBM-Ab...etc) * s/p pulse dose steroids and on oral prednisone * bronchoscopy (on 06/07/22) with findings of bleeding/hemorrhage as well * IV cytoxan today * previous renal ultrasound and urine electrolytes noted * s/p renal biopsy today - hopefully some preliminary results by tomorrow * s/p HD catheter placement (on 06/09/22) * HD yesterday and plan HD tomorrow * follow repeat labs and UOP (2) Chronic kidney disease, stage IV (severe): Code(s): N18.4 - Chronic kidney disease, stage 4 (severe) Status: Chronic Assessment and Plan: * since 2019, creatinine has been running ~ 1.4 - 1.7mg/dl * however, in July 2021, it increased to 1.93mg/dl * then, in March 2022, it was 2.32mg/dl * on discharge in early May 2022, it was 3.3mg/dl * outpatient labs on 05/28/22, creatinine up to 4.4mg/dl * element of kidney disease progression possible * presumably due to HTN, vascular disease/CHF, and age * HOWEVER, see #1 (3) Acute exacerbation of congestive heart failure: Qualifiers: Heart failure type: unspecified Qualified Code(s): I50.9 - Heart failure, unspecified Code(s): I50.9 - Heart failure, unspecified Status: Acute Assessment and Plan: * gentle diuresis * continue fluid restriction * follow I/Os, daily weights, and respiratory status * fluid removal with HD as well (4) Pneumonia: Qualifiers: Laterality: right Lung location: unspecified part of lung Pneumonia type: due to unspecified organism Qualified Code(s): J18.9 - Pneumonia, unspecified organism Code(s): J18.9 - Pneumonia, unspecified organism Status: Acute Assessment and Plan: * as suspected by admission imaging * on antibiotics * follow culture data (5) HTN (hypertension): Code(s): I10 - Essential (primary) hypertension Status: Chronic Assessment and Plan: * reasonable control at this time * attempt to keep in the 120 systolic or higher to possible improve renal blood flow * follow trend of hemodynamics (6) Anemia: Code(s): D64.9 - Anemia, unspecified Status: Chronic Assessment and Plan: * likely due to CKD +/- RAMIRO and acute illness * PRBC transfusion per protocol * on Epogen therapy * follow trend of H/H Will continue to follow. Subjective Date/time seen: 06/10/22 12:56 Tolerated dialysis treatment yesterday afternoon and renal biopsy earlier today; due to get IV cytoxan today; appears to be feeling reasonable well at the time of my visit; no acute issues/events overnight or earlier this morning. Exam Narrative: General: WD/WN male in NAD Heart: normal S1 and S2; no rub Lungs: clear anteriorly and coarse at bases Abdomen: soft, nontender, nondistended, positive bowel sounds Extremities: no cyanosis or clubbing; trace edema Skin: warm and intact Objective Data Vital Signs Vital Signs:
[2022-06-10] MEDS: PALONOSETRON HCL 0.25 MG/5 ML VIAL IV PUSH (14:00)
--- NOTE | 2022-06-10 14:36 | PM.IMPN ---
Progress Note: A&P Assessment and Plan (1) Congestive heart failure: Code(s): I50.9 - Heart failure, unspecified Status: Acute Assessment and Plan: ED-HPI narrative: Patient is a 81-year-old gentleman who presents the emergency department with chief complaint of generalized weakness.? The patient reports he was recently in the hospital for congestive heart failure and has noticed that he has been getting progressively weaker at home and has been getting more short of breath.? Patient states is worse with ambulation and improved with rest patient reports he has had a cough at home denies fever.? Patient states that when he was in the hospital recently he was being treated for pneumonia as well. 06/10/2022 interval history: 81 year male presented with generalized weakness with history of congestive heart failure patient has a preserved LV function on recent echo showed abnormal diastolic function, with elevated BNP of and 11,600, will gently diuresed the patient with Lasix 40 mg IV, patient is acute on chronic kidney disease will closely monitor kidney function, patient is seen by instrumentation and control technician recommending patient may need kidney biopsy to further evaluate and further recommendation to follow.x-ray suspicious for pneumonia and patient white count elevated, started the patient on doxycycline and ceftriaxone, last evening patient had developed hemoptysis seen by independent film maker suspect 2/2 alveolar hemarraghe due to anticoagulation xarelto, which now stopped, on 06/07 patient had bronchoscopies to further evaluate hemoptysis, 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 and patient was given high dose solumedrol 3g on 06/07 and will receive another 500mg on 06/08, , also concern may have autoimmune disease and recommended immune suppression therapy with IV cyclophosphamide, discussed with instrumentation and control technician he wants to have dialysis 1st and on 06/09 patient had tunneled catheter and had 1st dialysis, patient is scheduled kidney biopsy today and plan is the patient would receive cyclophosphamide later today today patient stats feeling better, not as short of breath, making urine, will continue to monitor, a PT OT evaluate the and further recommendation to follow (2) Acute kidney injury: Code(s): N17.9 - Acute kidney failure, unspecified Status: Acute Assessment and Plan: patient with acute on chronic kidney disease patient being diuresed will closely monitor kidney function (3) Hypertension: Code(s): I10 - Essential (primary) hypertension Status: Acute Assessment and Plan: resume patient's home medication and monitor (4) Pneumonia: Code(s): J18.9 - Pneumonia, unspecified organism Status: Acute Assessment and Plan: patient was recently discharged from the hospital high risk of healthcare associated pneumonia however patient white counts are not significantly elevated will start the patient on ceftriaxone and doxycycline, will follow-up blood and sputum culture (5) Atrial fibrillation: Qualifiers: Atrial fibrillation type: unspecified Qualified Code(s): I48.91 - Unspecified atrial fibrillation Code(s): I48.91 - Unspecified atrial fibrillation Status: Acute Assessment and Plan: rate is controlled anticoagulated with Xarelto Subjective Date/time seen: 06/10/22 14:36 06/10/2022 interval history: 81 year male presented with generalized weakness with history of congestive heart failure patient has a preserved LV function on recent echo showed abnormal diastolic function, with elevated BNP of and 11,600, will gently diuresed the patient with Lasix 40 mg IV, patient is acute on chronic kidney disease will closely monitor kidney function, patient is seen by instrumentation and control technician recommending patient may need kidney biopsy to further evaluate and further recommendation to follow.x-ray suspicious for pneumonia and patient white count elevated, started t
--- NOTE | 2022-06-10 15:18 | PC.NURSE ---
Patient received chemo infusion, patient identifier, rate and drug checked with Marcia CALVO.
[2022-06-10] MEDS: EPOETIN ALFA-EPBX 10,000 UNITS/ML VIAL 10000 UNITS SUB-Q (17:38)
[2022-06-10 19:57] LABS: Anti Streptolysin O Screen 59 IU/mL (<200)
[2022-06-11] VITALS (26 sets, daily range): BP systolic 104–158; BP diastolic 36–87; PULSE 67–103; RESP 16–18; TEMP 36–37.4; O2SAT 93–96
[2022-06-11 05:58] LABS: Hematocrit 26.3 % (42.0-52.0); Hemoglobin 8.3 g/dL (14.0-18.0); Mean Corpuscular HGB Conc 31.6 g/dl (32-36); Mean Corpuscular Hemoglobin 31.4 pg (26-34); Mean Corpuscular Volume 99.6 fl (80-100); Mean Platelet Volume 9.6 fl (7.4-10.4); Platelet Count Result 201 k/mm3 (150-375); Red Blood Count 2.64 M/mm3 (4.6-6.20); Red Cell Distribution Width 15.9 % (11.5-14.5); White Blood Count 11.4 K/mm3 (4.5-10.0)
[2022-06-11 06:09] LABS: INR 1.3; Prothrombin Time 15.3 Seconds (11.1-14.7)
[2022-06-11 06:26] LABS: Albumin Level 3.3 g/dL (3.5-5.1); Anion Gap 6 mmol/L (8-16); Blood Urea Nitrogen 91 mg/dL (9-20); Calcium 7.9 mg/dL (8.4-10.2); Carbon Dioxide 29 mmol/L (22-30); Chloride 99 mmol/L (98-107); Estimated CRCL calculation 18 ml/min; Estimated Glomerular Filt Rate 14; Glucose 175 mg/dL (65-110); Magnesium 2.1 mg/dL (1.6-2.3); Phosphorus 5.7 mg/dL (2.5-4.5); Potassium 4.4 mmol/L (3.4-5.0); Sodium 134 mmol/L (137-145)
[2022-06-11] MEDS: SODIUM CHLORIDE 0.9% IV 1,000 ML 999 ML IV CONT (08:56)
[2022-06-11] MEDS: EPOETIN ALFA-EPBX 20,000 UNITS/ML VIAL 20000 UNITS IV PUSH (08:57)
--- NOTE | 2022-06-11 10:34 | P.PNNP_ITS ---
Progress Note: A&P Assessment and Plan (1) RAMIRO (acute kidney injury): Code(s): N17.9 - Acute kidney failure, unspecified Status: Acute Assessment and Plan: * concerning for possible pulmonary-renal syndrome * serologies to date (MAT, dsDNA-Ab, anti-GBM...etc) negative but ANCA still pending * s/p pulse dose steroids and on oral prednisone * bronchoscopy (on 06/07/22) with findings of bleeding/hemorrhage as well * s/p IV cytoxan (on 06/10/22) * given trend of labs in the last few months, may have a element of CKD progression(?) as well [see #2] * issues with CHF and pneumonia could be partly to blame but treatment of these issues did not seem to improve things * previous renal ultrasound and urine electrolytes noted * s/p renal biopsy (on 06/10/22) - hopefully some preliminary results later today * s/p HD catheter placement (on 06/09/22) * HD today and possibly tomorrow * follow repeat labs and UOP (2) Chronic kidney disease, stage IV (severe): Code(s): N18.4 - Chronic kidney disease, stage 4 (severe) Status: Chronic Assessment and Plan: * since 2019, creatinine has been running ~ 1.4 - 1.7mg/dl * however, in July 2021, it increased to 1.93mg/dl * then, in March 2022, it was 2.32mg/dl * on discharge in early May 2022, it was 3.3mg/dl * outpatient labs on 05/28/22, creatinine up to 4.4mg/dl * element of kidney disease progression possible * presumably due to HTN, vascular disease/CHF, and age * HOWEVER, see #1 (3) Acute exacerbation of congestive heart failure: Qualifiers: Heart failure type: unspecified Qualified Code(s): I50.9 - Heart failure, unspecified Code(s): I50.9 - Heart failure, unspecified Status: Acute Assessment and Plan: * gentle diuresis * continue fluid restriction * follow I/Os, daily weights, and respiratory status * fluid removal with HD as well (4) Pneumonia: Qualifiers: Laterality: right Lung location: unspecified part of lung Pneumonia type: due to unspecified organism Qualified Code(s): J18.9 - Pneumonia, unspecified organism Code(s): J18.9 - Pneumonia, unspecified organism Status: Acute Assessment and Plan: * as suspected by admission imaging * completed course of antibiotics * culture data noted (5) HTN (hypertension): Code(s): I10 - Essential (primary) hypertension Status: Chronic Assessment and Plan: * reasonable control at this time * attempt to keep in the 120 systolic or higher to possible improve renal blood flow * follow trend of hemodynamics (6) Anemia: Code(s): D64.9 - Anemia, unspecified Status: Chronic Assessment and Plan: * likely due to CKD +/- RAMIRO and acute illness * alveolar hemorrhage likely playing a role as well * PRBC transfusion per protocol * on Epogen therapy * follow trend of H/H Will continue to follow. Subjective Date/time seen: 06/11/22 10:34 Tolerated dialysis treatment at the time of my visit (see on HD at 10:20AM); tolerated IV cytoxan infusion yesterday along with renal biopsy without any acute issues or problems; remains in good spirits at this time; respiratory status stable if not improving as well; no events overnight or earlier this morning. Exam Narrative: General: WD/WN elderly male in NAD Heart: normal S1 and S2; no rub Lungs: clear anteriorly and coarse at bases Abdomen: soft, nontender, nondistended, positive bowel sounds Extremiti
--- NOTE | 2022-06-11 10:34 | PM.PNNEP ---
Progress Note: A&P Assessment and Plan (1) RAMIRO (acute kidney injury): Code(s): N17.9 - Acute kidney failure, unspecified Status: Acute Assessment and Plan: concerning for possible pulmonary-renal syndrome serologies to date (MAT, dsDNA-Ab, anti-GBM...etc) negative but ANCA still pending s/p pulse dose steroids and on oral prednisone bronchoscopy (on 06/07/22) with findings of bleeding/hemorrhage as well s/p IV cytoxan (on 06/10/22) given trend of labs in the last few months, may have a element of CKD progression(?) as well [see #2] issues with CHF and pneumonia could be partly to blame but treatment of these issues did not seem to improve things previous renal ultrasound and urine electrolytes noted s/p renal biopsy (on 06/10/22) - hopefully some preliminary results later today s/p HD catheter placement (on 06/09/22) HD today and possibly tomorrow follow repeat labs and UOP (2) Chronic kidney disease, stage IV (severe): Code(s): N18.4 - Chronic kidney disease, stage 4 (severe) Status: Chronic Assessment and Plan: since 2019, creatinine has been running ~ 1.4 - 1.7mg/dl however, in July 2021, it increased to 1.93mg/dl then, in March 2022, it was 2.32mg/dl on discharge in early May 2022, it was 3.3mg/dl outpatient labs on 05/28/22, creatinine up to 4.4mg/dl element of kidney disease progression possible presumably due to HTN, vascular disease/CHF, and age HOWEVER, see #1 (3) Acute exacerbation of congestive heart failure: Qualifiers: Heart failure type: unspecified Qualified Code(s): I50.9 - Heart failure, unspecified Code(s): I50.9 - Heart failure, unspecified Status: Acute Assessment and Plan: gentle diuresis continue fluid restriction follow I/Os, daily weights, and respiratory status fluid removal with HD as well (4) Pneumonia: Qualifiers: Laterality: right Lung location: unspecified part of lung Pneumonia type: due to unspecified organism Qualified Code(s): J18.9 - Pneumonia, unspecified organism Code(s): J18.9 - Pneumonia, unspecified organism Status: Acute Assessment and Plan: as suspected by admission imaging completed course of antibiotics culture data noted (5) HTN (hypertension): Code(s): I10 - Essential (primary) hypertension Status: Chronic Assessment and Plan: reasonable control at this time attempt to keep in the 120 systolic or higher to possible improve renal blood flow follow trend of hemodynamics (6) Anemia: Code(s): D64.9 - Anemia, unspecified Status: Chronic Assessment and Plan: likely due to CKD +/- RAMIRO and acute illness alveolar hemorrhage likely playing a role as well PRBC transfusion per protocol on Epogen therapy follow trend of H/H Will continue to follow. Subjective Date/time seen: 06/11/22 10:34 Tolerated dialysis treatment at the time of my visit (see on HD at 10:20AM); tolerated IV cytoxan infusion yesterday along with renal biopsy without any acute issues or problems; remains in good spirits at this time; respiratory status stable if not improving as well; no events overnight or earlier this morning. Exam Narrative: General: WD/WN elderly male in NAD Heart: normal S1 and S2; no rub Lungs: clear anteriorly and coarse at bases Abdomen: soft, nontender, nondistended, positive bowel sounds Extremities: no cyanosis or clubbing; trace edema Skin: no rashs or nodules Objective Data Vital Signs Vital Signs: Vital Signs Temp Pulse Resp BP Pulse Ox O2 Del Method O2 Flow Rate 06/11/22 10:30 88 133/68 06/11/22 10:10 67 113/36 L 06/11/22 09:30 81 132/87 06/11/22 09:10 74 136/72 06/11/22 08:50 79 146/87 H 06/11/22 08:25 2 06/11/22 08:25 98.0 F 79 18 149/87 H 06/11/22 08:35 86 158/83 H 06/11/22 05:54 9
--- NOTE | 2022-06-11 11:26 | PCPTNOTE ---
The patient treatment was not able to be completed on 06/11/2022 due to patient out of room for dialysis. Will plan to continue treatment per plan of care.
--- NOTE | 2022-06-11 11:46 | PM.IMPN ---
Progress Note: A&P Assessment and Plan (1) Congestive heart failure: Code(s): I50.9 - Heart failure, unspecified Status: Acute Assessment and Plan: Exacerbated by end-stage renal disease. Continue hemodialysis. Volume status is improved. (2) Acute kidney injury: Code(s): N17.9 - Acute kidney failure, unspecified Status: Acute Assessment and Plan: patient with acute on chronic kidney disease patient being diuresed will closely monitor kidney function HD per Renal (3) Hypertension: Code(s): I10 - Essential (primary) hypertension Status: Acute Assessment and Plan: resume patient's home medication and monitor (4) Pneumonia: Code(s): J18.9 - Pneumonia, unspecified organism Status: Acute Assessment and Plan: patient was recently discharged from the hospital high risk of healthcare associated pneumonia however patient white counts are not significantly elevated will start the patient on ceftriaxone and doxycycline, will follow-up blood and sputum culture (5) Atrial fibrillation: Qualifiers: Atrial fibrillation type: unspecified Qualified Code(s): I48.91 - Unspecified atrial fibrillation Code(s): I48.91 - Unspecified atrial fibrillation Status: Acute Assessment and Plan: rate is controlled anticoagulated with Xarelto Subjective Date/time seen: 06/11/22 11:46 Doing well tolerating HD Exam Narrative: morbidly obese Patient is comfortable, NAD HEENT: eyes are clear and none icteric LUNGS: bilateral fair air entry with rales and rhonchi HEART: RR S1S2 ABD: distended edema Lower extremities: no edema SKIN: nonjaundiced Neuro: grossly intact. Objective Data Vital Signs Vital Signs: Vital Signs - 24 hr 06/10/22 12:18 06/10/22 12:19 06/10/22 12:00 Temperature Pulse Rate 86 88 81 Respiratory Rate Blood Pressure 124/85 140/104 H Pulse Oximetry 97 97 Oxygen Delivery Oxygen Flow Rate 06/10/22 16:00 06/10/22 19:48 06/10/22 20:37 Temperature 97.4 F L Pulse Rate 90 96 96 Respiratory Rate 20 Blood Pressure 131/88 Pulse Oximetry 97 Oxygen Delivery Oxygen Flow Rate 06/10/22 20:00 06/10/22 20:00 06/10/22 20:00 Temperature Pulse Rate 87 Respiratory Rate Blood Pressure Pulse Oximetry 97 97 Oxygen Delivery Nasal Cannula Nasal Cannula Oxygen Flow Rate 2 2 06/11/22 00:00 06/11/22 04:00 06/11/22 05:54 Temperature 98 F Pulse Rate 85 98 89 Respiratory Rate 18 Blood Pressure 128/80 Pulse Oximetry 96 Oxygen Delivery Oxygen Flow Rate 06/11/22 08:35 06/11/22 08:25 06/11/22 08:25 Temperature 98.0 F Pulse Rate 86 79 Respiratory Rate 18 Blood Pressure 158/83 H 149/87 H Pulse Oximetry Oxygen Delivery Oxygen Flow Rate 2 06/11/22 08:50 06/11/22 09:10 06/11/22 09:30 Temperature Pulse Rate 79 74 81 Respiratory Rate Blood Pressure 146/87 H 136/72 132/87 Pulse Oximetry Oxygen Delivery Oxygen Flow Rate 06/11/22 10:10 06/11/22 10:30 06/11/22 10:50 Temperature Pulse Rate 67 88 88 Respiratory Rate Blood Pressure 113/36 L 133/68 124/59 L Pulse Oximetry Oxygen Delivery Oxygen Flow Rate 06/11/22 11:10 06/11/22 11:30 Temperature Pulse Rate 81 85 Respiratory Rate Blood Pressure 107/57 L 107/61 Pulse Oximetry Oxygen Delivery Oxygen Flow Rate Intake/Output Intake/Output: Intake & Output 06/08/22 06/09/22 06/10/22 06/11/22 23:59 23:59 23:59 23:59 Intake Total 820 872 440 500 Output Total 800 2300 1250 Balance 33 -1824 -835 500 Meds/Results Medications: Active Medications Generic Name Dose Route Start Last Admin Trade Name Freq PRN Reason Stop Dose Admin Alteplase, Recombinant 2 mg 06/07/22 10:28 06/07/22 11:01 Alteplase 2 Mg Vial (Cathflo) IV PUSH 2 mg ONCE PRN Administration Line Occlusion Amlodipine Besylate 5 mg 06/05/22
--- NOTE | 2022-06-11 11:49 | PM.IMPN ---
Subjective Date/time seen: 06/11/22 11:49 No new complaints Objective Data Vital Signs Vital Signs: Vital Signs - 24 hr 06/10/22 12:18 06/10/22 12:19 06/10/22 12:00 Temperature Pulse Rate 86 88 81 Respiratory Rate Blood Pressure 124/85 140/104 H Pulse Oximetry 97 97 Oxygen Delivery Oxygen Flow Rate 06/10/22 16:00 06/10/22 19:48 06/10/22 20:37 Temperature 97.4 F L Pulse Rate 90 96 96 Respiratory Rate 20 Blood Pressure 131/88 Pulse Oximetry 97 Oxygen Delivery Oxygen Flow Rate 06/10/22 20:00 06/10/22 20:00 06/10/22 20:00 Temperature Pulse Rate 87 Respiratory Rate Blood Pressure Pulse Oximetry 97 97 Oxygen Delivery Nasal Cannula Nasal Cannula Oxygen Flow Rate 2 2 06/11/22 00:00 06/11/22 04:00 06/11/22 05:54 Temperature 98 F Pulse Rate 85 98 89 Respiratory Rate 18 Blood Pressure 128/80 Pulse Oximetry 96 Oxygen Delivery Oxygen Flow Rate 06/11/22 08:35 06/11/22 08:25 06/11/22 08:25 Temperature 98.0 F Pulse Rate 86 79 Respiratory Rate 18 Blood Pressure 158/83 H 149/87 H Pulse Oximetry Oxygen Delivery Oxygen Flow Rate 2 06/11/22 08:50 06/11/22 09:10 06/11/22 09:30 Temperature Pulse Rate 79 74 81 Respiratory Rate Blood Pressure 146/87 H 136/72 132/87 Pulse Oximetry Oxygen Delivery Oxygen Flow Rate 06/11/22 10:10 06/11/22 10:30 06/11/22 10:50 Temperature Pulse Rate 67 88 88 Respiratory Rate Blood Pressure 113/36 L 133/68 124/59 L Pulse Oximetry Oxygen Delivery Oxygen Flow Rate 06/11/22 11:10 06/11/22 11:30 Temperature Pulse Rate 81 85 Respiratory Rate Blood Pressure 107/57 L 107/61 Pulse Oximetry Oxygen Delivery Oxygen Flow Rate Intake/Output Intake/Output: Intake & Output 06/08/22 06/09/22 06/10/22 06/11/22 23:59 23:59 23:59 23:59 Intake Total 820 872 440 500 Output Total 800 2300 1250 Balance 20 1424 -810 500 Meds/Results Medications: Active Medications Generic Name Dose Route Start Last Admin Trade Name Freq PRN Reason Stop Dose Admin Alteplase, Recombinant 2 mg 06/07/22 10:28 06/07/22 11:01 Alteplase 2 Mg Vial (Cathflo) IV PUSH 2 mg ONCE PRN Administration Line Occlusion Amlodipine Besylate 5 mg 06/05/22 09:00 06/05/22 10:54 Amlodipine Besylate 5 Mg Tablet PO 5 mg DAILY ROBERT Administration Benzonatate 100 mg 06/05/22 11:45 06/10/22 03:23 Benzonatate 100 Mg Capsule PO 100 mg Q8H PRN Administration Cough Epoetin Santiago-epbx 20,000 units 06/11/22 21:00 06/11/22 08:57 Epoetin Santiago-Epbx 20,000 Units/Ml Vial IV PUSH 06/11/22 21:01 20,000 units ONCE ONE Administration Famotidine 10 mg 06/07/22 09:00 06/10/22 10:03 Famotidine 10 Mg Tablet PO 10 mg DAILY ROBERT Administration Fish Oil 1 gm 06/05/22 09:00 06/10/22 10:04 [place] 3 Polyunsat Fatty Acids 1 Gm Cap PO 07/05/22 08:59 1 gm DAILY ROBERT Administration Furosemide 40 mg 06/05/22 09:00 06/10/22 10:05 Furosemide Inj 40 Mg/4 Ml Vial IV PUSH 40 mg DAILY ROBERT Administration Albumin Human 50 mls @ 999 mls/hr 06/10/22 23:55 Albutein IVPB 07/10/22 23:54 Q10M PRN HYPOTENSION Lactobacillus Acidophilus 1 tablet 06/05/22 09:00 06/10/22 10:04 Acidophilus/Bulgaricus Chewable Tablet PO 07/05/22 08:59 1 tablet DAILY ROBERT Administration Lisinopril 10 mg 06/10/22 09:00 06/10/22 10:04 Lisinopril 10 Mg Tablet PO 10 mg DAILY ROBERT Administration Loratadine 10 mg 06/05/22 09:00 06/10/22 10:04 Loratadine 10 Mg Tablet PO 07/05/22 08:59 10 mg DAILY ROBERT Administration Metoprolol Tartrate 50 mg 06/05/22 09:00 06/10/22 20:37 Metoprolol Tartrate 50 Mg Tab PO 50 mg Q12HR ROBERT Administration Multivitamins/Minerals 1 tab 06/05/22 09:00 06/10/22 10:04 Multivitamins /C Lutein (Centrum Silver) Tablet *Bkc PO 07/05/22 08:59 1 tab DAILY ROBERT Administration Ondansetron H
--- NOTE | 2022-06-11 12:02 | PCNWS ---
Weekly nutritional screen. Patient is currently on a Renal Dialysis diet. Oral Intake has been about 50% of meals. Nepro shakes added today for additional 425 kcals and 19 gms protein. Patient currently in Dialysis. No weight loss reported. No further nutritional needs at this time.
[2022-06-11] MEDS: LORATADINE 10 MG TABLET PO (12:54)
[2022-06-11] MEDS: FUROSEMIDE INJ 40 MG/4 ML VIAL IV PUSH (12:54)
[2022-06-11] MEDS: OMEGA 3 POLYUNSAT FATTY ACIDS 1 GM CAP PO (12:54)
[2022-06-11] MEDS: METOPROLOL TARTRATE 50 MG TAB PO ×2 (12:54→20:12)
[2022-06-11] MEDS: lisinopriL 10 MG TABLET PO (12:55)
[2022-06-11] MEDS: FAMOTIDINE 10 MG TABLET PO (12:55)
[2022-06-11] MEDS: ACIDOPHILUS/BULGARICUS CHEWABLE TABLET 1 TABLET PO (12:55)
[2022-06-11] MEDS: MULTIVITAMINS /C LUTEIN (CENTRUM SILVER) TABLET *BKC 1 TAB PO (12:55)
[2022-06-11] MEDS: predniSONE 20 MG TABLET 60 MG PO (12:56)
--- NOTE | 2022-06-11 14:17 | PM.PNPUL ---
Progress Note: A&P Assessment and Plan (1) Acute hypoxemic respiratory failure: Code(s): J96.01 - Acute respiratory failure with hypoxia Status: Acute (2) Acute renal failure: Code(s): N17.9 - Acute kidney failure, unspecified Status: Acute (3) Hemoptysis: Code(s): R04.2 - Hemoptysis Status: Acute Assessment and Plan: 81-year-old man with shortness of breath, generalized weakness, new onset anemia, worsening renal failure,? hematuria,? bilateral alveolar infiltrates on chest imaging studies with? progression over the last month? and hemoptysis.? 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 Serology pending. Respiratory status improving slowly. Chest x-ray showed partial clearing of bilateral alveolar infiltrate. Plan: Continue with same treatment. Repeat CXR in am. (4) Obesity: Code(s): E66.9 - Obesity, unspecified Status: Acute (5) Atrial fibrillation: Code(s): I48.91 - Unspecified atrial fibrillation Status: Acute (6) Chronic diastolic (congestive) heart failure: Code(s): I50.32 - Chronic diastolic (congestive) heart failure Status: Acute Subjective Date/time seen: 06/11/22 14:17 Interval history: Patient has no new respiratory symptoms. Fewer episodes of hemoptysis over the last 48 hours. Remaining on low-flow oxygen via nasal cannula. Afebrile undergoing dialysis. Renal biopsy report pending. Uncle also pending. Improvement noted on chest x-ray couple days ago. Review of Systems Review of Systems: All systems reviewed & are unremarkable except as noted in HPI and below ( H&P and below) Exam Narrative: GENERAL APPEARANCE: Well developed, well nourished, alert and cooperative, and appears to be in no acute distress while on supplemental oxygen via nasal cannula SKIN: Inspection of the skin reveals no rashes, ulcerations or petechiae. HEENT: Sclerae anicteric and conjunctivae pink and moist. Extraocular movements were intact and pupils were equal, round, and reactive to light. The oral mucosa, hard and soft palate, tongue and posterior pharynx were normal. NECK: Supple. There was no thyroid enlargement, and no tenderness, or masses were felt. CHEST: Normal AP diameter and normal contour without any kyphoscoliosis. LUNGS: Auscultation of the lungs revealed essentially normal breath sounds with occasional tubular sounds at bases bilaterally. CARDIAC: There was a regular rate and rhythm without any murmurs. ABDOMEN: Soft and nontender with normal bowel sounds. There was no organomegaly. LYMPH NODES: No lymphadenopathy was appreciated in the neck EXTREMITIES: No cyanosis, clubbing or edema. NEUROLOGIC: Alert and oriented x 3. Normal affect. Objective Data Vital Signs Vital Signs: Vital Signs - 24 hr 06/10/22 16:00 06/10/22 19:48 06/10/22 20:37 Temperature 36.3 C L Pulse Rate 90 96 96 Respiratory Rate 20 Blood Pressure 131/88 Pulse Oximetry 97 Oxygen Delivery Oxygen Flow Rate 06/10/22 20:00 06/10/22 20:00 06/10/22 20:00 Temperature Pulse Rate 87 Respiratory Rate Blood Pressure Pulse Oximetry 97 97 Oxygen Delivery Nasal Cannula Nasal Cannula Oxygen Flow Rate 2 2 06/11/22 00:00 06/11/22 04:00 06/11/22 05:54 Temperature 36.6 C Pulse Rate 85 98 89 Respiratory Rate 18 Blood Pressure 128/80 Pulse Oximetry 96 Oxygen Delivery Oxygen Flow Rate 06/11/22 08:35 06/11/22 08:25 06/11/22 08:25 Temperature 36.7 C Pulse Rate 86 79 Respiratory Rate 18 Blood Pressure 158/83 H 149/87 H Pulse Oximetry Oxygen Delivery Oxygen Flow Rate 2 06/11/22 08:50 06/11/22 09:10 06/11/22 09:30 Temperature Pulse Rate 79 74 81 Respiratory Rate Bloo
--- NOTE | 2022-06-11 15:57 | P.PNCROSS_ITS ---
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 These results would suggest there is a chance for renal recovery. Will await pending serologies (unclear if this is granulomatosis with polyangiitis or microscopic polyangiitis) Case/results discussed with patient.
[2022-06-11] MEDS: traMADol HCL (*CRX) 50 MG TABLET PO (16:19)
[2022-06-11] MEDS: SALINE LOCK FLUSH 10 ML IV PUSH ×2 (16:21→20:12)
[2022-06-12] VITALS (28 sets, daily range): BP systolic 111–163; BP diastolic 65–109; PULSE 80–102; RESP 16–18; TEMP 36–36.8; O2SAT 95–97
[2022-06-12] MEDS: SALINE LOCK FLUSH 10 ML IV PUSH ×3 (05:27→20:48)
--- NOTE | 2022-06-12 11:35 | PM.PNPUL ---
Progress Note: A&P Assessment and Plan (1) Acute hypoxemic respiratory failure: Code(s): J96.01 - Acute respiratory failure with hypoxia Status: Acute (2) Acute renal failure: Code(s): N17.9 - Acute kidney failure, unspecified Status: Acute (3) Hemoptysis: Code(s): R04.2 - Hemoptysis Status: Acute Assessment and Plan: 81-year-old man with shortness of breath, generalized weakness, new onset anemia, worsening renal failure,? hematuria,? bilateral alveolar infiltrates on chest imaging studies with? progression over the last month? and hemoptysis.? 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 patient on dialysis. Serology pending. 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 Chest x-ray showed significant clearing of bilateral alveolar infiltrates due to hemorrhage. patient is still on supplemental oxygen at 2 liters/minute. Plan: Patient will need to continue with immunosuppressive treatment which ideally should managed by mobile marketing specialist experience in treating vasculitides. consider referring patient to rheumatology services at a tertiary center. He will continue to require treatment for his renal failure/dialysis. he will need home oxygen evaluation prior to DC home. Will sign off. Please call with any questions. (4) Obesity: Code(s): E66.9 - Obesity, unspecified Status: Acute (5) Atrial fibrillation: Code(s): I48.91 - Unspecified atrial fibrillation Status: Acute (6) Chronic diastolic (congestive) heart failure: Code(s): I50.32 - Chronic diastolic (congestive) heart failure Status: Acute Subjective Date/time seen: 06/12/22 11:35 Interval history: patient was not examined as he was having hemodialysis. He underwent chest x-ray this a.m.. 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 Exam Narrative: Not done Objective Data Vital Signs Vital Signs: Vital Signs - 24 hr 06/11/22 11:50 06/11/22 12:07 06/11/22 12:15 Temperature 36.8 C Pulse Rate 100 81 85 Respiratory Rate 16 Blood Pressure 122/65 104/41 L 119/65 Pulse Oximetry Oxygen Delivery Oxygen Flow Rate 06/11/22 12:17 06/11/22 12:54 06/11/22 13:00 Temperature 36.8 C Pulse Rate 85 103 H 103 H Respiratory Rate 16 16 Blood Pressure 119/65 Pulse Oximetry 96 Oxygen Delivery Nasal Cannula Oxygen Flow Rate 2 06/11/22 12:00 06/11/22 16:00 06/11/22 16:16 Temperature 36.1 C L Pulse Rate 90 97 72 Respiratory Rate 16 Blood Pressure 105/83 Pulse Oximetry 93 Oxygen Delivery Oxygen Flow Rate 06/11/22 20:00 06/11/22 20:08 06/11/22 20:12 Temperature 36.6 C Pulse Rate 84 83 68 Respiratory Rate 18 Blood Pressure 106/67 Pulse Oximetry 96 Oxygen Delivery Oxygen Flow Rate 06/11/22 20:00 06/12/22 00:00 06/12/22 04:00 Temperature Pulse Rate 68 81 84 Respiratory Rate 18 Blood Pressure Pulse Oximetry 96 Oxygen Delivery Nasal Cannula Oxygen Flow Rate 2 06/12/22 05:08 06/12/22 08:10 06/12/22 08:15 Temperature 36.6 C 36.8 C Pulse Rate 91 90 Respiratory Rate 18 16 Blood Pressure 138/86 129/91 H Pulse Oximetry 97 Oxygen Delivery Oxygen Flow Rate 2 06/12/22 08:17 06/12/22 08:20 06/12/22 08:40 Temperature Pulse Rate 83 89 84 Respiratory Rate Blood Pressure 151/98 H 155/98 H 139/109 H Pulse Oximetry Oxygen Delivery Oxygen Flow Rate 06/12/22 09:00 06/12/22 09:20 06/12/22 09:40 Temperature Pulse Rate 84 88 85 Respiratory Rate Blood Pressure 145/96 H 149/107 H 163/109 H Pulse Oximetry Oxygen Delivery Oxygen Flow Rate 06/12/22
--- NOTE | 2022-06-12 12:06 | P.PNNP_ITS ---
Progress Note: A&P Assessment and Plan (1) RAMIRO (acute kidney injury): Code(s): N17.9 - Acute kidney failure, unspecified Status: Acute Assessment and Plan: * concerning for possible pulmonary-renal syndrome * serologies to date (MAT, dsDNA-Ab, anti-GBM...etc) negative but ANCA still pending * s/p pulse dose steroids and on oral prednisone * bronchoscopy (on 06/07/22) with findings of bleeding/hemorrhage as well * s/p IV cytoxan (on 06/10/22) * given trend of labs in the last few months, may have a element of CKD progression(?) as well [see #2] * issues with CHF and pneumonia could be partly to blame but treatment of these issues did not seem to improve things * previous renal ultrasound and urine electrolytes noted * s/p renal biopsy (on 06/10/22) - 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 * s/p HD catheter placement (on 06/09/22) * HD Yesterday and again today. He will get it again on Tuesday. * The pathology results are not yet in the chart. Unknown whether he has background chronic issues. (2) Chronic kidney disease, stage IV (severe): Code(s): N18.4 - Chronic kidney disease, stage 4 (severe) Status: Chronic Assessment and Plan: * since 2019, creatinine has been running ~ 1.4 - 1.7mg/dl * however, in July 2021, it increased to 1.93mg/dl * then, in March 2022, it was 2.32mg/dl * on discharge in early May 2022, it was 3.3mg/dl * outpatient labs on 05/28/22, creatinine up to 4.4mg/dl * He probably has some underlying chronic kidney disease due to HTN, vascular disease/CHF, and age * is unclear how much of this is acute and how much of this is chronic. * Await pathology report. Was called to Dr. Haynes but the actual report is still pending. (3) Acute exacerbation of congestive heart failure: Qualifiers: Heart failure type: unspecified Qualified Code(s): I50.9 - Heart failure, unspecified Code(s): I50.9 - Heart failure, unspecified Status: Acute Assessment and Plan: * Removing fluid with dialysis. * continue fluid restriction * He is on diuretics as well. * urine output not recorded yesterday. (4) Pneumonia: Qualifiers: Laterality: right Lung location: unspecified part of lung Pneumonia type: due to unspecified organism Qualified Code(s): J18.9 - Pneumonia, unspecified organism Code(s): J18.9 - Pneumonia, unspecified organism Status: Acute Assessment and Plan: * as suspected by admission imaging * completed course of antibiotics * culture data noted (5) HTN (hypertension): Code(s): I10 - Essential (primary) hypertension Status: Chronic Assessment and Plan: * reasonable control at this time * Blood pressure doing well. (6) Anemia: Code(s): D64.9 - Anemia, unspecified Status: Chronic Assessment and Plan: * likely due to CKD +/- RAMIRO and acute illness * alveolar hemorrhage likely playing a role as well * Getting Epogen. * Check a hemoglobin tomorrow long discussion with the patient Subjective Date/time seen: 06/12/22 12:06 Interval history: patient is feeling a little bit better today. Yesterday after his dialysis he was a bit washed out. No chest pain or shortness of breath. No belly pain. He is on dialysis now and tolerating it well. He was seen at 11:30 a.m.. Fluid is being removed. Exam Narrative: General: WD/WN elderly male in NAD
--- NOTE | 2022-06-12 12:06 | PM.PNNEP ---
Progress Note: A&P Assessment and Plan (1) RAMIRO (acute kidney injury): Code(s): N17.9 - Acute kidney failure, unspecified Status: Acute Assessment and Plan: concerning for possible pulmonary-renal syndrome serologies to date (MAT, dsDNA-Ab, anti-GBM...etc) negative but ANCA still pending s/p pulse dose steroids and on oral prednisone bronchoscopy (on 06/07/22) with findings of bleeding/hemorrhage as well s/p IV cytoxan (on 06/10/22) given trend of labs in the last few months, may have a element of CKD progression(?) as well [see #2] issues with CHF and pneumonia could be partly to blame but treatment of these issues did not seem to improve things previous renal ultrasound and urine electrolytes noted s/p renal biopsy (on 06/10/22) - 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 s/p HD catheter placement (on 06/09/22) HD Yesterday and again today. He will get it again on Tuesday. The pathology results are not yet in the chart. Unknown whether he has background chronic issues. (2) Chronic kidney disease, stage IV (severe): Code(s): N18.4 - Chronic kidney disease, stage 4 (severe) Status: Chronic Assessment and Plan: since 2019, creatinine has been running ~ 1.4 - 1.7mg/dl however, in July 2021, it increased to 1.93mg/dl then, in March 2022, it was 2.32mg/dl on discharge in early May 2022, it was 3.3mg/dl outpatient labs on 05/28/22, creatinine up to 4.4mg/dl He probably has some underlying chronic kidney disease due to HTN, vascular disease/CHF, and age is unclear how much of this is acute and how much of this is chronic. Await pathology report. Was called to Dr. Haynes but the actual report is still pending. (3) Acute exacerbation of congestive heart failure: Qualifiers: Heart failure type: unspecified Qualified Code(s): I50.9 - Heart failure, unspecified Code(s): I50.9 - Heart failure, unspecified Status: Acute Assessment and Plan: Removing fluid with dialysis. continue fluid restriction He is on diuretics as well. urine output not recorded yesterday. (4) Pneumonia: Qualifiers: Laterality: right Lung location: unspecified part of lung Pneumonia type: due to unspecified organism Qualified Code(s): J18.9 - Pneumonia, unspecified organism Code(s): J18.9 - Pneumonia, unspecified organism Status: Acute Assessment and Plan: as suspected by admission imaging completed course of antibiotics culture data noted (5) HTN (hypertension): Code(s): I10 - Essential (primary) hypertension Status: Chronic Assessment and Plan: reasonable control at this time Blood pressure doing well. (6) Anemia: Code(s): D64.9 - Anemia, unspecified Status: Chronic Assessment and Plan: likely due to CKD +/- RAMIRO and acute illness alveolar hemorrhage likely playing a role as well Getting Epogen. Check a hemoglobin tomorrow long discussion with the patient Subjective Date/time seen: 06/12/22 12:06 Interval history: patient is feeling a little bit better today. Yesterday after his dialysis he was a bit washed out. No chest pain or shortness of breath. No belly pain. He is on dialysis now and tolerating it well. He was seen at 11:30 a.m.. Fluid is being removed. Exam Narrative: General: WD/WN elderly male in NAD Heart: normal S1 and S2; no rub Or gallop Lungs: clear anteriorly and coarse at bases Abdomen: soft, nontender, nondistended, positive bowel sounds Extremities: trace edema Skin: no rash Objective Data Vital Signs Vital Signs: Vital Signs - 24 hr 06/11/22 12:07 06/11/22 12:15 06/11/22 12:17 Temperature 98.2 F 98.2 F Pulse Rate 81 85 85 Respiratory Rate 16 16 Blood Pressure 104/41 L 119/65 119/65 Pulse Oximetry Oxygen Delivery Oxygen Flow Rate 06/11/22 1
[2022-06-12] MEDS: EPOETIN ALFA-EPBX 20,000 UNITS/ML VIAL 20000 UNITS IV PUSH (12:11)
[2022-06-12 13:02] LABS: Hematocrit 31.2 % (42.0-52.0); Hemoglobin 9.7 g/dL (14.0-18.0); Mean Corpuscular HGB Conc 31.1 g/dl (32-36); Mean Corpuscular Hemoglobin 31.7 pg (26-34); Mean Platelet Volume 9.5 fl (7.4-10.4); Platelet Count Result 192 k/mm3 (150-375); Red Blood Count 3.06 M/mm3 (4.6-6.20); Red Cell Distribution Width 16.9 % (11.5-14.5); White Blood Count 14.7 K/mm3 (4.5-10.0)
[2022-06-12] MEDS: METOPROLOL TARTRATE 50 MG TAB PO ×2 (13:06→20:42)
--- NOTE | 2022-06-12 13:06 | PM.IMPN ---
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 serology pending nephrology following prednisone HD as needed (3) Hypertension: Code(s): I10 - Essential (primary) hypertension Status: Acute Assessment and Plan: monitor (4) Atrial fibrillation: Qualifiers: Atrial fibrillation type: unspecified Qualified Code(s): I48.91 - Unspecified atrial fibrillation Code(s): I48.91 - Unspecified atrial fibrillation Status: Acute Assessment and Plan: xarelto continue cardiac medications Subjective Date/time seen: 06/12/22 13:06 Breathing is better Exam Narrative: General: WD/WN elderly male in NAD Heart: normal S1 and S2; no rub Or gallop Lungs: clear anteriorly and coarse at bases Abdomen: soft, nontender, nondistended, positive bowel sounds Extremities: trace edema Skin: no rash Objective Data Vital Signs Vital Signs: Vital Signs - 24 hr 06/11/22 16:00 06/11/22 16:16 06/11/22 20:00 Temperature 96.9 F L Pulse Rate 97 72 84 Respiratory Rate 16 Blood Pressure 105/83 Pulse Oximetry 93 Oxygen Delivery Oxygen Flow Rate 06/11/22 20:08 06/11/22 20:12 06/11/22 20:00 Temperature 97.9 F Pulse Rate 83 68 68 Respiratory Rate 18 18 Blood Pressure 106/67 Pulse Oximetry 96 96 Oxygen Delivery Nasal Cannula Oxygen Flow Rate 2 06/12/22 00:00 06/12/22 04:00 06/12/22 05:08 Temperature 97.8 F Pulse Rate 81 84 91 Respiratory Rate 18 Blood Pressure 138/86 Pulse Oximetry 97 Oxygen Delivery Oxygen Flow Rate 06/12/22 08:10 06/12/22 08:15 06/12/22 08:17 Temperature 98.3 F Pulse Rate 90 83 Respiratory Rate 16 Blood Pressure 129/91 H 151/98 H Pulse Oximetry Oxygen Delivery Oxygen Flow Rate 2 06/12/22 08:20 06/12/22 08:40 06/12/22 09:00 Temperature Pulse Rate 89 84 84 Respiratory Rate Blood Pressure 155/98 H 139/109 H 145/96 H Pulse Oximetry Oxygen Delivery Oxygen Flow Rate 06/12/22 09:20 06/12/22 09:40 06/12/22 10:00 Temperature Pulse Rate 88 85 94 Respiratory Rate Blood Pressure 149/107 H 163/109 H 158/93 H Pulse Oximetry Oxygen Delivery Oxygen Flow Rate 06/12/22 10:20 06/12/22 10:40 06/12/22 11:00 Temperature Pulse Rate 83 94 88 Respiratory Rate Blood Pressure 156/92 H 128/80 142/90 H Pulse Oximetry Oxygen Delivery Oxygen Flow Rate 06/12/22 11:20 06/12/22 11:40 06/12/22 11:49 Temperature Pulse Rate 84 93 80 Respiratory Rate Blood Pressure 137/80 151/88 H 126/97 H Pulse Oximetry Oxygen Delivery Oxygen Flow Rate 06/12/22 11:51 Temperature 98.3 F Pulse Rate 84 Respiratory Rate 16 Blood Pressure 145/104 H Pulse Oximetry Oxygen Delivery Oxygen Flow Rate Intake/Output Intake/Output: Intake & Output 06/09/22 06/10/22 06/11/22 06/12/22 23:59 23:59 23:59 23:59 Intake Total 023 603 9849 300 Output Total 23[address] [place] [address] [phone] Meds/Results Medications: Active Medications Generic Name Dose Route Start Last Admin Trade Name Freq PRN Reason Stop Dose Admin Alteplase, Recombinant 2 mg 06/07/22 10:28 06/07/22 11:01 Alteplase 2 Mg Vial (Cathflo) IV PUSH 2 mg ONCE PRN Administration Line Occlusion Amlodipine Besylate 5 mg 06/05/22 09:00 06/05/22 10:54 Amlodipine Besylate 5 Mg Tablet PO 5 mg DAILY ROBERT Administration Benzonatate 100 mg 06/05/22 11:45 06/10/22 03:23 Benzonatate 100 Mg Capsule PO 100 mg Q8H PRN Administration Cough Epoetin Santiago-epbx 20,000 units 06/12/22 21:34
[2022-06-12] MEDS: LORATADINE 10 MG TABLET PO (13:07)
[2022-06-12] MEDS: OMEGA 3 POLYUNSAT FATTY ACIDS 1 GM CAP PO (13:07)
[2022-06-12] MEDS: ACIDOPHILUS/BULGARICUS CHEWABLE TABLET 1 TABLET PO (13:08)
[2022-06-12] MEDS: predniSONE 20 MG TABLET 60 MG PO (13:08)
[2022-06-12] MEDS: MULTIVITAMINS /C LUTEIN (CENTRUM SILVER) TABLET *BKC 1 TAB PO (13:08)
[2022-06-12] MEDS: FAMOTIDINE 10 MG TABLET PO (13:08)
[2022-06-12 13:13] LABS: INR 1.2; Prothrombin Time 14.3 Seconds (11.1-14.7)
[2022-06-12 13:14] LABS: Albumin Level 3.5 g/dL (3.5-5.1); Anion Gap 1 mmol/L (8-16); Blood Urea Nitrogen 28 mg/dL (9-20); Calcium 8.1 mg/dL (8.4-10.2); Carbon Dioxide 34 mmol/L (22-30); Chloride 100 mmol/L (98-107); Estimated CRCL calculation 41 ml/min; Estimated Glomerular Filt Rate 36; Glucose 123 mg/dL (65-110); Magnesium 1.9 mg/dL (1.6-2.3); Phosphorus 2.7 mg/dL (2.5-4.5); Potassium 3.7 mmol/L (3.4-5.0); Sodium 135 mmol/L (137-145)
--- NOTE | 2022-06-12 13:52 | PCPTNOTE ---
Patient refused treatment this session due to being to tired.
--- NOTE | 2022-06-12 15:43 | PCOTNOTE ---
Attempted to see pt for Occupational Therapy treatment. Pt declined on this date due to fatigue from having dialysis today. Pt states he will be better to work with tomorrow. Will continue per poc duration/frequency tomorrow.
[2022-06-12 23:41] LABS: ANCA Screen P-ANCA POS (Negative)
[2022-06-12 23:57] LABS: P-ANCA Titer >1:640 Titer (<1:20); P-ANCA Titer Reflex Chg Test YES
[2022-06-13] VITALS (12 sets, daily range): BP systolic 125–137; BP diastolic 88–97; PULSE 75–103; RESP 16–20; TEMP 36–37; O2SAT 98–100
[2022-06-13] MEDS: TEMAZEPAM (*CRX) 15 MG CAPSULE PO (00:13)
[2022-06-13] MEDS: SALINE LOCK FLUSH 10 ML IV PUSH ×3 (05:05→21:14)
[2022-06-13 05:19] LABS: Basophils Percent Auto 0.1 % (0.2-1.2); Hemoglobin 8.6 g/dL (14.0-18.0); Immature Granulocyte Percent A 0.7 % (0-0.5); Lymphocytes Absolute Auto 0.66 K/mm3 (0.9-3.2); Lymphocytes Percent Auto 4.9 % (18.3-44.2); Mean Corpuscular HGB Conc 31.9 g/dl (32-36); Mean Corpuscular Hemoglobin 31.7 pg (26-34); Mean Corpuscular Volume 99.6 fl (80-100); Mean Platelet Volume 9.7 fl (7.4-10.4); Monocytes Absolute Auto 1.1 K/mm3 (0.1-0.6); Monocytes Percent Auto 8.5 % (2.6-8.5); Neutrophils Absolute Auto 11.5 K/mm3 (1.3-6.7); Neutrophils Percent Auto 85.8 % (45.5-73.1); Nucleated Red Blood Cells Absolute Auto 0.1 K/mm3 (0.0-0.012); Nucleated Red Blood Cells Perc 0.4 % (0.0-0.2); Platelet Count Result 193 k/mm3 (150-375); Red Blood Count 2.71 M/mm3 (4.6-6.20); Red Cell Distribution Width 16.3 % (11.5-14.5); White Blood Count 13.4 K/mm3 (4.5-10.0)
[2022-06-13 05:36] LABS: INR 1.2; Prothrombin Time 14.4 Seconds (11.1-14.7)
[2022-06-13 05:44] LABS: Albumin Level 3.1 g/dL (3.5-5.1); Anion Gap 4 mmol/L (8-16); Blood Urea Nitrogen 50 mg/dL (9-20); Calcium 7.8 mg/dL (8.4-10.2); Carbon Dioxide 31 mmol/L (22-30); Chloride 101 mmol/L (98-107); Estimated CRCL calculation 26 ml/min; Estimated Glomerular Filt Rate 21; Glucose 123 mg/dL (65-110); Phosphorus 3.4 mg/dL (2.5-4.5); Potassium 4.8 mmol/L (3.4-5.0); Sodium 136 mmol/L (137-145)
--- NOTE | 2022-06-13 08:58 | P.PNNP_ITS ---
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 * s/p HD catheter placement (on 06/09/22) * HD Tuesday and Tuesday. He will get it again tomorrowy. * The pathology results are not yet in the chart. Unknown whether he has background chronic issues. (2) Chronic kidney disease, stage IV (severe): Code(s): N18.4 - Chronic kidney disease, stage 4 (severe) Status: Chronic Assessment and Plan: * since 2019, creatinine has been running ~ 1.4 - 1.7mg/dl * however, in July 2021, it increased to 1.93mg/dl * then, in March 2022, it was 2.32mg/dl * on discharge in early May 2022, it was 3.3mg/dl * outpatient labs on 05/28/22, creatinine up to 4.4mg/dl * He probably has some underlying chronic kidney disease due to HTN, vascular disease/CHF, and age * is unclear how much of this is acute and how much of this is chronic. * Await pathology report. Was called to Dr. Haynes but the actual report is still pending. * There is a possibility of alveolar hemorrhage according to Dr. Haynes is note. His last chest x-ray was significantly improved suggesting that the pulmonary infiltrates might have been fluid rather than blood. Consider plasmapheresis if the alveolar hemorrhage becomes more of a likelihood? (3) Acute exacerbation of congestive heart failure: Qualifiers: Heart failure type: unspecified Qualified Code(s): I50.9 - Heart failure, unspecified Code(s): I50.9 - Heart failure, unspecified Status: Acute Assessment and Plan: * Removing fluid with dialysis. * continue fluid restriction * He is on diuretics as well. * urine output not recorded yesterday. (4) Pneumonia: Qualifiers: Laterality: right Lung location: unspecified part of lung Pneumonia type: due to unspecified organism Qualified Code(s): J18.9 - Pneumonia, unspecified organism Code(s): J18.9 - Pneumonia, unspecified organism Status: Acute Assessment and Plan: * as suspected by admission imaging * completed course of antibiotics * culture data noted (5) HTN (hypertension): Code(s): I10 - Essential (primary) hypertension Status: Chronic Assessment and Plan: * reasonable control at this time * Blood pressure doing well. (6) Anemia: Code(s): D64.9 - Anemia, unspecified Status: Chronic Assessment and Plan: * likely due to CKD +/- RAMIRO and acute illness. * Getting Epogen. * hemoglobin up and down in the 8 and 9. Subjective Date/time seen: 06/13/22 08:58 Interval history: patient is feeling blah. Dialysis went well yesterday. He slept okay. Exam Narrative: General: WD/WN elderly male in NAD Heart: normal S1 and S2; no rub Lungs: clear anteriorly and coarse at bases Abdomen: soft, nontender, nondistended, positive bowel sounds Extremities: trace edema Skin: no rash or subcu nodules Objective Data Vital Signs Vital Signs: Vital Signs - 24 hr
--- NOTE | 2022-06-13 08:58 | PM.PNNEP ---
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 s/p HD catheter placement (on 06/09/22) HD Tuesday and Tuesday. He will get it again tomorrowy. The pathology results are not yet in the chart. Unknown whether he has background chronic issues. (2) Chronic kidney disease, stage IV (severe): Code(s): N18.4 - Chronic kidney disease, stage 4 (severe) Status: Chronic Assessment and Plan: since 2019, creatinine has been running ~ 1.4 - 1.7mg/dl however, in July 2021, it increased to 1.93mg/dl then, in March 2022, it was 2.32mg/dl on discharge in early May 2022, it was 3.3mg/dl outpatient labs on 05/28/22, creatinine up to 4.4mg/dl He probably has some underlying chronic kidney disease due to HTN, vascular disease/CHF, and age is unclear how much of this is acute and how much of this is chronic. Await pathology report. Was called to Dr. Haynes but the actual report is still pending. There is a possibility of alveolar hemorrhage according to Dr. Haynes is note. His last chest x-ray was significantly improved suggesting that the pulmonary infiltrates might have been fluid rather than blood. Consider plasmapheresis if the alveolar hemorrhage becomes more of a likelihood? (3) Acute exacerbation of congestive heart failure: Qualifiers: Heart failure type: unspecified Qualified Code(s): I50.9 - Heart failure, unspecified Code(s): I50.9 - Heart failure, unspecified Status: Acute Assessment and Plan: Removing fluid with dialysis. continue fluid restriction He is on diuretics as well. urine output not recorded yesterday. (4) Pneumonia: Qualifiers: Laterality: right Lung location: unspecified part of lung Pneumonia type: due to unspecified organism Qualified Code(s): J18.9 - Pneumonia, unspecified organism Code(s): J18.9 - Pneumonia, unspecified organism Status: Acute Assessment and Plan: as suspected by admission imaging completed course of antibiotics culture data noted (5) HTN (hypertension): Code(s): I10 - Essential (primary) hypertension Status: Chronic Assessment and Plan: reasonable control at this time Blood pressure doing well. (6) Anemia: Code(s): D64.9 - Anemia, unspecified Status: Chronic Assessment and Plan: likely due to CKD +/- RAMIRO and acute illness. Getting Epogen. hemoglobin up and down in the 8 and 9. Subjective Date/time seen: 06/13/22 08:58 Interval history: patient is feeling blah. Dialysis went well yesterday. He slept okay. Exam Narrative: General: WD/WN elderly male in NAD Heart: normal S1 and S2; no rub Lungs: clear anteriorly and coarse at bases Abdomen: soft, nontender, nondistended, positive bowel sounds Extremities: trace edema Skin: no rash or subcu nodules Objective Data Vital Signs Vital Signs: Vital Signs - 24 hr 06/12/22 09:00 06/12/22 09:20 06/12/22 09:40 Temperature Pulse Rate 84 88 85 Respiratory Rate Blood Pressure 145/96 H 149/107 H 163/109 H Pulse Oximetry Oxygen Delivery Oxygen Flow Rate 06/12/22 10:00 06/12/22 10:20 06/12/22 10:40 Temperature Pulse Rate 94 83 94 Respiratory Rate Blood Pressure 158/93 H 156/92 H 128/80 Pulse Oximetry Oxygen Delivery Oxygen Flow Rate 06/12/22 11:00 06/12/22 11:20 06/12/22 11:40 Temperature Pulse Rate 88 84 93 Respiratory Rate Blood Pressure
[2022-06-13] MEDS: MULTIVITAMINS /C LUTEIN (CENTRUM SILVER) TABLET *BKC 1 TAB PO (09:08)
[2022-06-13] MEDS: FAMOTIDINE 10 MG TABLET PO (09:08)
[2022-06-13] MEDS: OMEGA 3 POLYUNSAT FATTY ACIDS 1 GM CAP PO (09:08)
[2022-06-13] MEDS: METOPROLOL TARTRATE 50 MG TAB PO ×2 (09:08→21:14)
[2022-06-13] MEDS: predniSONE 20 MG TABLET 60 MG PO (09:09)
[2022-06-13] MEDS: LORATADINE 10 MG TABLET PO (09:09)
[2022-06-13] MEDS: ACIDOPHILUS/BULGARICUS CHEWABLE TABLET 1 TABLET PO (09:09)
[2022-06-13] MEDS: traMADol HCL (*CRX) 50 MG TABLET PO (09:11)
--- NOTE | 2022-06-13 11:05 | PM.IMPN ---
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 serology pending nephrology following prednisone HD as needed (3) Hypertension: Code(s): I10 - Essential (primary) hypertension Status: Acute Assessment and Plan: monitor (4) Atrial fibrillation: Qualifiers: Atrial fibrillation type: unspecified Qualified Code(s): I48.91 - Unspecified atrial fibrillation Code(s): I48.91 - Unspecified atrial fibrillation Status: Acute Assessment and Plan: xarelto continue cardiac medications Subjective Date/time seen: 06/13/22 11:05 No new complaints Exam Narrative: General: WD/WN elderly male in NAD Heart: normal S1 and S2; no rub Or gallop Lungs: clear anteriorly and coarse at bases Abdomen: soft, nontender, nondistended, positive bowel sounds Extremities: trace edema Skin: no rash Objective Data Vital Signs Vital Signs: Vital Signs - 24 hr 06/12/22 11:20 06/12/22 11:40 06/12/22 11:49 Temperature Pulse Rate 84 93 80 Respiratory Rate Blood Pressure 137/80 151/88 H 126/97 H Pulse Oximetry Oxygen Delivery Oxygen Flow Rate 06/12/22 11:51 06/12/22 13:06 06/12/22 14:00 Temperature 98.3 F 98.3 F Pulse Rate 84 102 H 90 Respiratory Rate 16 18 Blood Pressure 145/104 H 111/65 Pulse Oximetry 96 Oxygen Delivery Oxygen Flow Rate 06/12/22 13:00 06/12/22 12:00 06/12/22 16:00 Temperature Pulse Rate 90 93 88 Respiratory Rate 18 Blood Pressure Pulse Oximetry 96 Oxygen Delivery Nasal Cannula Oxygen Flow Rate 2 06/12/22 20:42 06/12/22 20:58 06/12/22 20:00 Temperature 97.5 F L Pulse Rate 90 95 96 Respiratory Rate 16 Blood Pressure 132/99 H Pulse Oximetry 95 Oxygen Delivery Oxygen Flow Rate 06/13/22 00:00 06/13/22 04:00 06/13/22 05:09 Temperature 96.8 F L Pulse Rate 82 75 83 Respiratory Rate 16 Blood Pressure 125/88 Pulse Oximetry 99 Oxygen Delivery Oxygen Flow Rate 06/13/22 09:08 Temperature Pulse Rate 103 H Respiratory Rate Blood Pressure Pulse Oximetry Oxygen Delivery Oxygen Flow Rate Intake/Output Intake/Output: Intake & Output 06/10/22 06/11/22 06/12/22 06/13/22 23:59 23:59 23:59 23:59 Intake Total 440 1220 540 480 Output Total 1250 2000 2500 [facility] [phone] Meds/Results Medications: Active Medications Generic Name Dose Route Start Last Admin Trade Name Freq PRN Reason Stop Dose Admin Alteplase, Recombinant 2 mg 06/07/22 10:28 06/07/22 11:01 Alteplase 2 Mg Vial (Cathflo) IV PUSH 2 mg ONCE PRN Administration Line Occlusion Amlodipine Besylate 5 mg 06/05/22 09:00 06/05/22 10:54 Amlodipine Besylate 5 Mg Tablet PO 5 mg DAILY ROBERT Administration Benzonatate 100 mg 06/05/22 11:45 06/10/22 03:23 Benzonatate 100 Mg Capsule PO 100 mg Q8H PRN Administration Cough Epoetin Santiago-epbx 20,000 units 06/14/22 17:00 Epoetin Santiago-Epbx 20,000 Units/Ml Vial IV PUSH [id number] ROBERT Famotidine 10 mg 06/07/22 09:00 06/13/22 09:08 Famotidine 10 Mg Tablet PO 10 mg DAILY ROBERT Administration Fish Oil 1 gm 06/05/22 09:00 06/13/22 09:08 [place] 3 Polyunsat Fatty Acids 1 Gm Cap PO 07/05/22 08:59 1 gm DAILY ROBERT Administration Furosemide 40 mg 06/05/22 09:00 06/11/22 12:54 Furosemide Inj 40 Mg/4 Ml Vial IV PUSH 40 mg DAILY ROBERT Administration Albumin Human 50 mls @ 999 mls/hr 06/10/22 23:55 Alb[place]in IVPB 07/10/22 23:54 Q10M PRN HYPOTENSION Albumin Human 50 mls @ 999 mls/hr 06/13/22 09:04 Albutein IVPB 06/14
--- NOTE | 2022-06-13 11:25 | PCOTNOTE ---
Attempted to see pt for Occupational Therapy treatment. Pt declined at this time due to I'm too tired. . Pt reports he will get up later to watch the football game. Pt was educated on the importance of continued participation in therapy, pt verbally agrees with statement, however, declined to participate in any self care and/or therapeutic activities at this time. AMMUNITION SPECIALIST reports that pt has been getting up with straight cane to use the bathroom. Will continue per poc duration/frequency tomorrow.
--- NOTE | 2022-06-13 15:36 | PCPTNOTE ---
Attempted to see patient for Physical Therapy this date. Patient stated that he was too tired. Pt. wanted to continue to sleep. Patient stated that the dialysis is make him tired. RN notified.
[2022-06-13 20:04] LABS: Cryoglobulin, QL Negative (Negative)
[2022-06-14] VITALS (22 sets, daily range): BP systolic 108–154; BP diastolic 68–113; PULSE 68–90; RESP 16–18; TEMP 36.5–37; O2SAT 98–100
[2022-06-14 05:41] LABS: Hematocrit 26.4 % (42.0-52.0); Hemoglobin 8.3 g/dL (14.0-18.0); Mean Corpuscular HGB Conc 31.4 g/dl (32-36); Mean Corpuscular Hemoglobin 30.7 pg (26-34); Mean Corpuscular Volume 97.8 fl (80-100); Mean Platelet Volume 9.4 fl (7.4-10.4); Platelet Count Result 185 k/mm3 (150-375); Red Cell Distribution Width 15.5 % (11.5-14.5); White Blood Count 16.8 K/mm3 (4.5-10.0)
[2022-06-14 05:52] LABS: INR 1.2; Prothrombin Time 14.8 Seconds (11.1-14.7)
[2022-06-14 05:58] LABS: Albumin Level 2.9 g/dL (3.5-5.1); Anion Gap 3 mmol/L (8-16); Blood Urea Nitrogen 69 mg/dL (9-20); Calcium 7.7 mg/dL (8.4-10.2); Carbon Dioxide 31 mmol/L (22-30); Chloride 99 mmol/L (98-107); Estimated CRCL calculation 22 ml/min; Estimated Glomerular Filt Rate 17; Glucose 112 mg/dL (65-110); Magnesium 2.1 mg/dL (1.6-2.3); Phosphorus 3.6 mg/dL (2.5-4.5); Potassium 4.5 mmol/L (3.4-5.0); Sodium 133 mmol/L (137-145)
[2022-06-14] MEDS: SALINE LOCK FLUSH 10 ML IV PUSH ×3 (06:02→21:17)
--- NOTE | 2022-06-14 08:30 | PCPTNOTE ---
The patient treatment was not able to be completed on 06/14/2022 due to patient out of room for dialysis. Will plan to continue treatment per plan of care.
--- NOTE | 2022-06-14 08:43 | PCOTNOTE ---
Attempted to see patient this am, however patient was off floor for dialysis at this time.
--- NOTE | 2022-06-14 11:15 | P.PNNP_ITS ---
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 * s/p pulse dose steroids and on oral prednisone * bronchoscopy (on 06/07/22) with findings of bleeding/hemorrhage as well * s/p IV cytoxan (on 06/10/22) * s/p HD catheter placement (on 06/09/22) * HD today * will transition to oral cytoxan in a couple of weeks and continue weaning steroids * the hope is for possible renal recovery but he may need ongoing dialysis until this occurs -- case management arranging outpatient HD in case needed on discharge * follow trend of repeat labs and UOP (to assess for potential renal recovery) (2) Chronic kidney disease, stage IV (severe): Code(s): N18.4 - Chronic kidney disease, stage 4 (severe) Status: Chronic Assessment and Plan: * since 2019, creatinine has been running ~ 1.4 - 1.7mg/dl * however, in July 2021, it increased to 1.93mg/dl * then, in March 2022, it was 2.32mg/dl * on discharge in early May 2022, it was 3.3mg/dl * outpatient labs on 05/28/22, creatinine up to 4.4mg/dl * probably has some underlying chronic kidney disease due to HTN, vascular disease/CHF, and age * renal biopsy did not show significant chronic disease (3) Acute exacerbation of congestive heart failure: Qualifiers: Heart failure type: unspecified Qualified Code(s): I50.9 - Heart failure, unspecified Code(s): I50.9 - Heart failure, unspecified Status: Acute Assessment and Plan: * removing fluid with dialysis. * continue fluid restriction * resume oral diuretics * follow I/Os (4) Pneumonia: Qualifiers: Laterality: right Lung location: unspecified part of lung Pneumonia type: due to unspecified organism Qualified Code(s): J18.9 - Pneumonia, unspecified organism Code(s): J18.9 - Pneumonia, unspecified organism Status: Acute Assessment and Plan: * as suspected by admission imaging * completed course of antibiotics * culture data noted (5) HTN (hypertension): Code(s): I10 - Essential (primary) hypertension Status: Chronic Assessment and Plan: * reasonable control at this time * follow trend of hemodynamics (6) Anemia: Code(s): D64.9 - Anemia, unspecified Status: Chronic Assessment and Plan: * likely due to CKD +/- RAMIRO and acute illness. * Epogen with HD * follow trend of H/H Will continue to follow. Subjective Date/time seen: 06/14/22 11:15 Chart reviewed since last seen -- tolerating dialysis treatment at the time of my visit (seen on HD at ~ 11:05AM); no apparent distress voiced; respiratory status seems relatively stable; no apparent distress to report. Exam Narrative: General: WD/WN elderly male in NAD Heart: normal S1 and S2; no rub Lungs: clear anteriorly and coarse at bases Abdomen: soft, nontender, nondistended, positive bowel sounds Extremities: trace edema present Skin: warm and dry Objective Data Vital Signs Vital Signs: Vital Signs Temp Pulse Resp BP Pulse Ox O2 Del Method O2 Flow Rate 06/14/22 08:00 75
--- NOTE | 2022-06-14 11:15 | PM.PNNEP ---
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 s/p pulse dose steroids and on oral prednisone bronchoscopy (on 06/07/22) with findings of bleeding/hemorrhage as well s/p IV cytoxan (on 06/10/22) s/p HD catheter placement (on 06/09/22) HD today will transition to oral cytoxan in a couple of weeks and continue weaning steroids the hope is for possible renal recovery but he may need ongoing dialysis until this occurs -- case management arranging outpatient HD in case needed on discharge follow trend of repeat labs and UOP (to assess for potential renal recovery) (2) Chronic kidney disease, stage IV (severe): Code(s): N18.4 - Chronic kidney disease, stage 4 (severe) Status: Chronic Assessment and Plan: since 2019, creatinine has been running ~ 1.4 - 1.7mg/dl however, in July 2021, it increased to 1.93mg/dl then, in March 2022, it was 2.32mg/dl on discharge in early May 2022, it was 3.3mg/dl outpatient labs on 05/28/22, creatinine up to 4.4mg/dl probably has some underlying chronic kidney disease due to HTN, vascular disease/CHF, and age renal biopsy did not show significant chronic disease (3) Acute exacerbation of congestive heart failure: Qualifiers: Heart failure type: unspecified Qualified Code(s): I50.9 - Heart failure, unspecified Code(s): I50.9 - Heart failure, unspecified Status: Acute Assessment and Plan: removing fluid with dialysis. continue fluid restriction resume oral diuretics follow I/Os (4) Pneumonia: Qualifiers: Laterality: right Lung location: unspecified part of lung Pneumonia type: due to unspecified organism Qualified Code(s): J18.9 - Pneumonia, unspecified organism Code(s): J18.9 - Pneumonia, unspecified organism Status: Acute Assessment and Plan: as suspected by admission imaging completed course of antibiotics culture data noted (5) HTN (hypertension): Code(s): I10 - Essential (primary) hypertension Status: Chronic Assessment and Plan: reasonable control at this time follow trend of hemodynamics (6) Anemia: Code(s): D64.9 - Anemia, unspecified Status: Chronic Assessment and Plan: likely due to CKD +/- RAMIRO and acute illness. Epogen with HD follow trend of H/H Will continue to follow. Subjective Date/time seen: 06/14/22 11:15 Chart reviewed since last seen -- tolerating dialysis treatment at the time of my visit (seen on HD at ~ 11:05AM); no apparent distress voiced; respiratory status seems relatively stable; no apparent distress to report. Exam Narrative: General: WD/WN elderly male in NAD Heart: normal S1 and S2; no rub Lungs: clear anteriorly and coarse at bases Abdomen: soft, nontender, nondistended, positive bowel sounds Extremities: trace edema present Skin: warm and dry Objective Data Vital Signs Vital Signs: Vital Signs Temp Pulse Resp BP Pulse Ox O2 Del Method O2 Flow Rate 06/14/22 08:00 75 06/14/22 11:00 84 137/97 H 06/14/22 10:40 79 113/83 06/14/22 10:20 68 108/85 06/14/22 10:00 68 113/85 06/14/22 09:40 79 139/75 06/14/22 09:20 75 126/74 06/14/22 09:00 69 126/81 06/14/22 08:40 78 143/113 H 06/14/22 08:35 76 154/102 H 06/14/22 08:31 2 06/14/22 08:30 98.1 F 73 16 143/102 H 06/14/22 04:00 85 06/14/22 00:00 86 06/13/22 20:00 98 Nasal Cannula 2 06/13/22 20:00 89 06/13/22 21:24 98.1 F 75 20 137/97 H 100 06/13/22 21:14 88 06/13/22 16:00
--- NOTE | 2022-06-14 11:55 | PM.IMPN ---
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 need for ongoing HD (3) Hypertension: Code(s): I10 - Essential (primary) hypertension Status: Acute Assessment and Plan: monitor (4) Atrial fibrillation: Qualifiers: Atrial fibrillation type: unspecified Qualified Code(s): I48.91 - Unspecified atrial fibrillation Code(s): I48.91 - Unspecified atrial fibrillation Status: Acute Assessment and Plan: xarelto continue cardiac medications Subjective Date/time seen: 06/14/22 11:55 no new complaints Exam Narrative: General: WD/WN elderly male in NAD Heart: normal S1 and S2; no rub Or gallop Lungs: clear anteriorly and coarse at bases Abdomen: soft, nontender, nondistended, positive bowel sounds Extremities: trace edema Skin: no rash Objective Data Vital Signs Vital Signs: Vital Signs - 24 hr 06/13/22 14:00 06/13/22 12:00 06/13/22 16:00 Temperature 98.6 F Pulse Rate 86 82 90 Respiratory Rate 18 Blood Pressure 128/90 Pulse Oximetry 99 Oxygen Delivery Oxygen Flow Rate 06/13/22 21:14 06/13/22 21:24 06/13/22 20:00 Temperature 98.1 F Pulse Rate 88 75 89 Respiratory Rate 20 Blood Pressure 137/97 H Pulse Oximetry 100 Oxygen Delivery Oxygen Flow Rate 06/13/22 20:00 06/14/22 00:00 06/14/22 04:00 Temperature Pulse Rate 86 85 Respiratory Rate Blood Pressure Pulse Oximetry 98 Oxygen Delivery Nasal Cannula Oxygen Flow Rate 2 06/14/22 08:30 06/14/22 08:31 06/14/22 08:35 Temperature 98.1 F Pulse Rate 73 76 Respiratory Rate 16 Blood Pressure 143/102 H 154/102 H Pulse Oximetry Oxygen Delivery Oxygen Flow Rate 2 06/14/22 08:40 06/14/22 09:00 06/14/22 09:20 Temperature Pulse Rate 78 69 75 Respiratory Rate Blood Pressure 143/113 H 126/81 126/74 Pulse Oximetry Oxygen Delivery Oxygen Flow Rate 01/30/23 09:40 06/14/22 10:00 06/14/22 10:20 Temperature Pulse Rate 79 68 68 Respiratory Rate Blood Pressure 139/75 113/85 108/85 Pulse Oximetry Oxygen Delivery Oxygen Flow Rate 06/14/22 10:40 06/14/22 11:00 06/14/22 11:20 Temperature Pulse Rate 79 84 86 Respiratory Rate Blood Pressure 113/83 137/97 H 123/71 Pulse Oximetry Oxygen Delivery Oxygen Flow Rate 06/14/22 08:00 Temperature Pulse Rate 75 Respiratory Rate Blood Pressure Pulse Oximetry Oxygen Delivery Oxygen Flow Rate Intake/Output Intake/Output: Intake & Output 06/11/22 06/12/22 06/13/22 06/14/22 23:59 23:59 23:59 23:59 Intake Total 2977 120 3802 Output Total 1999 2500 Balance -780 -1960 1440 Meds/Results Medications: Active Medications Generic Name Dose Route Start Last Admin Trade Name Freq PRN Reason Stop Dose Admin Alteplase, Recombinant 2 mg 06/07/22 10:28 06/07/22 11:01 Alteplase 2 Mg Vial (Cathflo) IV PUSH 2 mg ONCE PRN Administration Line Occlusion Amlodipine Besylate 5 mg 06/05/22 09:00 06/05/22 10:54 Amlodipine Besylate 5 Mg Tablet PO 5 mg DAILY ROBERT Administration Benzonatate 100 mg 06/05/22 11:45 06/10/22 03:23 Benzonatate 100 Mg Capsule PO 100 mg Q8H PRN Administration Cough Epoetin Santiago-epbx 20,000 units 06/14/22 17:00 Epoetin Santiago-Epbx 20,000 Units/Ml Vial IV PUSH [id number]@1700 ROBERT Famotidine 10 mg 06/07/22 09:00 06/13/22 09:08 Famotidine 10 Mg Tablet PO 10 mg DAILY ROBERT Administration Fish Oil 1 gm 06/05/22 09:00 06/13/22 09:08 [place] 3 Polyunsat Fatty Acids 1 Gm Cap PO 07/05/22 08:5
[2022-06-14] MEDS: MULTIVITAMINS /C LUTEIN (CENTRUM SILVER) TABLET *BKC 1 TAB PO (12:52)
[2022-06-14] MEDS: LORATADINE 10 MG TABLET PO (12:52)
[2022-06-14] MEDS: OMEGA 3 POLYUNSAT FATTY ACIDS 1 GM CAP PO (12:52)
[2022-06-14] MEDS: predniSONE 20 MG TABLET 60 MG PO (12:52)
[2022-06-14] MEDS: ACIDOPHILUS/BULGARICUS CHEWABLE TABLET 1 TABLET PO (12:52)
[2022-06-14] MEDS: FAMOTIDINE 10 MG TABLET PO (12:52)
[2022-06-14] MEDS: METOPROLOL TARTRATE 50 MG TAB PO (12:53)
[2022-06-14] MEDS: BETAMETHASONE/CLOTRIMAZOLE CR 15 GM TUBE 1 APPLIC TOPICAL (21:18)
[2022-06-15] VITALS (10 sets, daily range): BP systolic 124–141; BP diastolic 76–82; PULSE 82–98; RESP 16–18; TEMP 36.5–37; O2SAT 97–100
[2022-06-15 05:29] LABS: Hematocrit 28.2 % (42.0-52.0); Hemoglobin 8.9 g/dL (14.0-18.0); Mean Corpuscular HGB Conc 31.6 g/dl (32-36); Mean Corpuscular Hemoglobin 31.7 pg (26-34); Mean Corpuscular Volume 100.4 fl (80-100); Mean Platelet Volume 9.7 fl (7.4-10.4); Platelet Count Result 170 k/mm3 (150-375); Red Blood Count 2.81 M/mm3 (4.6-6.20); Red Cell Distribution Width 15.6 % (11.5-14.5); White Blood Count 13.6 K/mm3 (4.5-10.0)
[2022-06-15 05:39] LABS: Albumin Level 3.3 g/dL (3.5-5.1); Anion Gap 4 mmol/L (8-16); Blood Urea Nitrogen 60 mg/dL (9-20); Carbon Dioxide 34 mmol/L (22-30); Chloride 95 mmol/L (98-107); Estimated CRCL calculation 24 ml/min; Estimated Glomerular Filt Rate 19; Glucose 139 mg/dL (65-110); Magnesium 2.1 mg/dL (1.6-2.3); Phosphorus 4.2 mg/dL (2.5-4.5); Potassium 4.5 mmol/L (3.4-5.0); Sodium 133 mmol/L (137-145)
[2022-06-15 05:40] LABS: INR 1.1; Prothrombin Time 13.9 Seconds (11.1-14.7)
[2022-06-15] MEDS: SALINE LOCK FLUSH 10 ML IV PUSH ×3 (05:44→19:56)
[2022-06-15] MEDS: ACIDOPHILUS/BULGARICUS CHEWABLE TABLET 1 TABLET PO (09:12)
[2022-06-15] MEDS: LORATADINE 10 MG TABLET PO (09:12)
[2022-06-15] MEDS: OMEGA 3 POLYUNSAT FATTY ACIDS 1 GM CAP PO (09:12)
[2022-06-15] MEDS: predniSONE 20 MG TABLET 60 MG PO (09:12)
[2022-06-15] MEDS: FAMOTIDINE 10 MG TABLET PO (09:12)
[2022-06-15] MEDS: MULTIVITAMINS /C LUTEIN (CENTRUM SILVER) TABLET *BKC 1 TAB PO (09:12)
--- NOTE | 2022-06-15 09:16 | P.PNNP_ITS ---
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 * s/p pulse dose steroids and on oral prednisone * bronchoscopy (on 06/07/22) with findings of bleeding/hemorrhage as well * s/p IV cytoxan (on 06/10/22) * s/p HD catheter placement (on 06/09/22) * depending on labs, tentatively plan HD tomorrow * will transition to oral cytoxan in a couple of weeks and continue weaning steroids * the hope is for possible renal recovery but he may need ongoing dialysis until this occurs -- case management arranging outpatient HD in case needed on discharge * follow trend of repeat labs and UOP (to assess for potential renal recovery) (2) Chronic kidney disease, stage IV (severe): Code(s): N18.4 - Chronic kidney disease, stage 4 (severe) Status: Chronic Assessment and Plan: * since 2019, creatinine has been running ~ 1.4 - 1.7mg/dl * however, in July 2021, it increased to 1.93mg/dl * then, in March 2022, it was 2.32mg/dl * on discharge in early May 2022, it was 3.3mg/dl * outpatient labs on 05/28/22, creatinine up to 4.4mg/dl * probably has some underlying chronic kidney disease due to HTN, vascular disease/CHF, and age * renal biopsy did not show significant chronic disease (3) Acute exacerbation of congestive heart failure: Qualifiers: Heart failure type: unspecified Qualified Code(s): I50.9 - Heart failure, unspecified Code(s): I50.9 - Heart failure, unspecified Status: Acute Assessment and Plan: * removing fluid with dialysis * continue fluid restriction * resume oral diuretics * follow I/Os (urine output) (4) Pneumonia: Qualifiers: Laterality: right Lung location: unspecified part of lung Pneumonia type: due to unspecified organism Qualified Code(s): J18.9 - Pneumonia, unspecified organism Code(s): J18.9 - Pneumonia, unspecified organism Status: Acute Assessment and Plan: * as suspected by admission imaging * completed course of antibiotics * culture data noted (5) HTN (hypertension): Code(s): I10 - Essential (primary) hypertension Status: Chronic Assessment and Plan: * reasonable control at this time * follow trend of hemodynamics (6) Anemia: Code(s): D64.9 - Anemia, unspecified Status: Chronic Assessment and Plan: * likely due to CKD +/- RAMIRO and acute illness. * Epogen with HD * follow trend of H/H Will continue to follow. Subjective Date/time seen: 06/15/22 09:16 Tolerated dialysis treatment yesterday without any issues or problems; b reathing/respiratory status appears stable if not improved; no apparent distress voiced at the time of my visit. Exam Narrative: General: WD/WN elderly male in NAD Heart: normal S1 and S2; no rub Lungs: clear anteriorly and coarse at bases Abdomen: soft, nontender, nondistended, positive bowel sounds Extremities: trace edema present Skin: warm and intact Objective Data Vital Signs Vital Signs: Vital Signs Temp Pulse Resp BP Pulse Ox O2 Del Method O2 Flow Rate 06/15/22
--- NOTE | 2022-06-15 09:16 | PM.PNNEP ---
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 s/p pulse dose steroids and on oral prednisone bronchoscopy (on 06/07/22) with findings of bleeding/hemorrhage as well s/p IV cytoxan (on 06/10/22) s/p HD catheter placement (on 06/09/22) depending on labs, tentatively plan HD tomorrow will transition to oral cytoxan in a couple of weeks and continue weaning steroids the hope is for possible renal recovery but he may need ongoing dialysis until this occurs -- case management arranging outpatient HD in case needed on discharge follow trend of repeat labs and UOP (to assess for potential renal recovery) (2) Chronic kidney disease, stage IV (severe): Code(s): N18.4 - Chronic kidney disease, stage 4 (severe) Status: Chronic Assessment and Plan: since 2019, creatinine has been running ~ 1.4 - 1.7mg/dl however, in July 2021, it increased to 1.93mg/dl then, in March 2022, it was 2.32mg/dl on discharge in early May 2022, it was 3.3mg/dl outpatient labs on 05/28/22, creatinine up to 4.4mg/dl probably has some underlying chronic kidney disease due to HTN, vascular disease/CHF, and age renal biopsy did not show significant chronic disease (3) Acute exacerbation of congestive heart failure: Qualifiers: Heart failure type: unspecified Qualified Code(s): I50.9 - Heart failure, unspecified Code(s): I50.9 - Heart failure, unspecified Status: Acute Assessment and Plan: removing fluid with dialysis continue fluid restriction resume oral diuretics follow I/Os (urine output) (4) Pneumonia: Qualifiers: Laterality: right Lung location: unspecified part of lung Pneumonia type: due to unspecified organism Qualified Code(s): J18.9 - Pneumonia, unspecified organism Code(s): J18.9 - Pneumonia, unspecified organism Status: Acute Assessment and Plan: as suspected by admission imaging completed course of antibiotics culture data noted (5) HTN (hypertension): Code(s): I10 - Essential (primary) hypertension Status: Chronic Assessment and Plan: reasonable control at this time follow trend of hemodynamics (6) Anemia: Code(s): D64.9 - Anemia, unspecified Status: Chronic Assessment and Plan: likely due to CKD +/- RAMIRO and acute illness. Epogen with HD follow trend of H/H Will continue to follow. Subjective Date/time seen: 06/15/22 09:16 Tolerated dialysis treatment yesterday without any issues or problems; breathing/respiratory status appears stable if not improved; no apparent distress voiced at the time of my visit. Exam Narrative: General: WD/WN elderly male in NAD Heart: normal S1 and S2; no rub Lungs: clear anteriorly and coarse at bases Abdomen: soft, nontender, nondistended, positive bowel sounds Extremities: trace edema present Skin: warm and intact Objective Data Vital Signs Vital Signs: Vital Signs Temp Pulse Resp BP Pulse Ox O2 Del Method O2 Flow Rate 06/15/22 08:00 97 Nasal Cannula 2 06/15/22 09:20 87 06/15/22 09:16 124/76 06/15/22 08:00 84 06/15/22 04:00 93 06/15/22 00:00 84 06/14/22 20:00 83 06/14/22 20:00 100 Nasal Cannula 2 06/14/22 16:00 82 06/14/22 15:44 97.7 F 90 18 111/76 98 06/14/22 12:53 86 06/14/22 12:00 80 06/14/22 11:39 98.3 F 84 16 126/68 06/14/22 11:37 86 114/70 06/14/22 11:20 86 123/71 06/14/22 11:00 84 137/97 H Intake/Output Intake/Output: Intake & Output 06/12/22 06/13/22 06/14/22
[2022-06-15] MEDS: BETAMETHASONE/CLOTRIMAZOLE CR 15 GM TUBE 1 APPLIC TOPICAL ×2 (09:20→19:55)
--- NOTE | 2022-06-15 11:31 | PM.IMPN ---
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 need for ongoing HD Continue prednisone. (3) Hypertension: Code(s): I10 - Essential (primary) hypertension Status: Acute Assessment and Plan: monitor BP (4) Atrial fibrillation: Qualifiers: Atrial fibrillation type: unspecified Qualified Code(s): I48.91 - Unspecified atrial fibrillation Code(s): I48.91 - Unspecified atrial fibrillation Status: Acute Assessment and Plan: xarelto continue cardiac medications Subjective Date/time seen: 06/15/22 11:31 Feeling much better overall. Labs noted. Exam Narrative: General: WD/WN elderly male in NAD Heart: normal S1 and S2; no rub Or gallop Lungs: clear anteriorly and coarse at bases Abdomen: soft, nontender, nondistended, positive bowel sounds Extremities: trace edema Skin: no rash Objective Data Vital Signs Vital Signs: Vital Signs - 24 hr 06/14/22 11:37 06/14/22 11:39 06/14/22 12:00 Temperature 98.3 F Pulse Rate 86 84 80 Respiratory Rate 16 Blood Pressure 114/70 126/68 Pulse Oximetry Oxygen Delivery Oxygen Flow Rate 06/14/22 12:53 06/14/22 15:44 06/14/22 16:00 Temperature 97.7 F Pulse Rate 86 90 82 Respiratory Rate 18 Blood Pressure 111/76 Pulse Oximetry 98 Oxygen Delivery Oxygen Flow Rate 06/14/22 20:00 06/14/22 20:00 06/15/22 00:00 Temperature Pulse Rate 83 84 Respiratory Rate Blood Pressure Pulse Oximetry 100 Oxygen Delivery Nasal Cannula Oxygen Flow Rate 2 06/15/22 04:00 06/15/22 08:00 06/15/22 09:16 Temperature Pulse Rate 93 84 Respiratory Rate Blood Pressure 124/76 Pulse Oximetry Oxygen Delivery Oxygen Flow Rate 06/15/22 09:20 06/15/22 08:00 Temperature Pulse Rate 87 Respiratory Rate Blood Pressure Pulse Oximetry 97 Oxygen Delivery Nasal Cannula Oxygen Flow Rate 2 Intake/Output Intake/Output: Intake & Output 06/12/22 06/13/22 06/14/22 06/15/22 23:59 23:59 23:59 23:59 Intake Total 540 1440 960 300 Output Total 2500 3200 0 Balance -1960 1440 -2240 300 Meds/Results Medications: Active Medications Generic Name Dose Route Start Last Admin Trade Name Freq PRN Reason Stop Dose Admin Alteplase, Recombinant 2 mg 06/07/22 10:28 06/07/22 11:01 Alteplase 2 Mg Vial (Cathflo) IV PUSH 2 mg ONCE PRN Administration Line Occlusion Amlodipine Besylate 5 mg 06/05/22 09:00 06/05/22 10:54 Amlodipine Besylate 5 Mg Tablet PO 5 mg DAILY ROBERT Administration Benzonatate 100 mg 06/05/22 11:45 06/10/22 03:23 Benzonatate 100 Mg Capsule PO 100 mg Q8H PRN Administration Cough Bumetanide 1 mg 06/15/22 09:10 Bumetanide 1 Mg Tablet PO DAILY ROBERT Clotrimazole 1 applic 06/14/22 21:00 06/15/22 09:20 Betamethasone/Clotrimazole Cr 15 Gm Tube TOPICAL 1 applic Q12HR ROBERT Administration Epoetin Santiago-epbx 20,000 units 06/14/22 17:00 06/14/22 16:52 Epoetin Santiago-Epbx 20,000 Units/Ml Vial IV PUSH Not Given [id number]@1700 ROBERT Famotidine 10 mg 06/07/22 09:00 06/15/22 09:12 Famotidine 10 Mg Tablet PO 10 mg DAILY ROBERT Administration Fish Oil 1 gm 06/05/22 09:00 06/15/22 09:12 [place] 3 Polyunsat Fatty Acids 1 Gm Cap PO 07/05/22 08:59 1 gm DAILY ROBERT Administration Albumin Human 50 mls @ 999 mls/hr 06/10/22 23:55 Albutein IVPB 07/10/22 23:54 Q10M PRN HYPOTENSION Lactobacillus Acidophilus 1 tablet 06/05/22 09:00 06/15/22 09:12 Acidophilus/Bulgaricus Chewable Tablet PO 07/05/22 08:59 1 ta
--- NOTE | 2022-06-15 13:49 | PC.NURSE ---
Per MD. Jessica to [facility].
[2022-06-15] MEDS: BUMETANIDE 1 MG TABLET PO (15:02)
[2022-06-15] MEDS: METOPROLOL TARTRATE 50 MG TAB PO (19:56)
[2022-06-16] VITALS (20 sets, daily range): BP systolic 100–162; BP diastolic 60–95; PULSE 61–94; RESP 16–18; TEMP 36–36.7; O2SAT 95–100
[2022-06-16 05:34] LABS: Hematocrit 29.4 % (42.0-52.0); Hemoglobin 9.3 g/dL (14.0-18.0); Mean Corpuscular HGB Conc 31.6 g/dl (32-36); Mean Corpuscular Hemoglobin 31.7 pg (26-34); Mean Corpuscular Volume 100.3 fl (80-100); Mean Platelet Volume 9.9 fl (7.4-10.4); Platelet Count Result 187 k/mm3 (150-375); Red Blood Count 2.93 M/mm3 (4.6-6.20); Red Cell Distribution Width 15.8 % (11.5-14.5); White Blood Count 15.5 K/mm3 (4.5-10.0)
[2022-06-16 05:42] LABS: Albumin Level 3.5 g/dL (3.5-5.1); Anion Gap 5 mmol/L (8-16); Blood Urea Nitrogen 80 mg/dL (9-20); Carbon Dioxide 32 mmol/L (22-30); Chloride 94 mmol/L (98-107); Estimated CRCL calculation 21 ml/min; Estimated Glomerular Filt Rate 17; Glucose 110 mg/dL (65-110); Magnesium 2.1 mg/dL (1.6-2.3); Phosphorus 4.7 mg/dL (2.5-4.5); Potassium 4.5 mmol/L (3.4-5.0); Sodium 131 mmol/L (137-145)
[2022-06-16 05:50] LABS: INR 1.1; Prothrombin Time 13.9 Seconds (11.1-14.7)
--- NOTE | 2022-06-16 09:34 | PM.IMPN ---
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 Continue Bumex. ALso using HD to control fluid status. (3) Hypertension: Code(s): I10 - Essential (primary) hypertension Status: Acute Assessment and Plan: BP stable. Continue curent treatment (4) Atrial fibrillation: Qualifiers: Atrial fibrillation type: unspecified Qualified Code(s): I48.91 - Unspecified atrial fibrillation Code(s): I48.91 - Unspecified atrial fibrillation Status: Acute Assessment and Plan: Patient with hemoptysis with bronch showing old blood clots in the lower trachea. Was on xarelto but now on hold. Continue lopressor Plan Plan for SNF at discharge. Care coordination consulted Subjective Date/time seen: 06/16/22 09:34 Interval history: 81yo male with CKD here for CHF and RAMIRO. Assuming care. Chart reviewed. Patient slept well. On his last admission about a month ago, he was sent home on oxygen at 1.5 L. denies feeling dizzy over the past few days although the nursing staff stay patient was dizzy with low blood pressure yesterday. Patient's shortness of breath is better. No chest pain. Exam Narrative: AF 97.7 100/60 78 18 99% 2L Gen - NARD Chest - CTA bilaterally, nml RR. Tunneled IJ HD catheter right upper chest; site is clean and dry CV - RRR S1/S2. 2/6 systolic murmur Rt USB without radiation and softer systolic murmur at the apex Abd - Soft, NT/ND, Positive BS Ext - No pedal edema Psych - Nml mood and affect Skin - Warm and dry Objective Data Vital Signs Vital Signs: Vital Signs - 24 hr 06/15/22 12:00 06/15/22 15:02 06/15/22 19:20 Temperature 98.6 F 97.7 F Pulse Rate 83 98 82 Respiratory Rate 16 18 Blood Pressure 128/77 141/82 H Pulse Oximetry 100 100 Oxygen Delivery Oxygen Flow Rate 06/15/22 19:56 06/15/22 20:00 06/16/22 04:47 Temperature 97.7 F Pulse Rate 88 78 Respiratory Rate 18 Blood Pressure 100/60 Pulse Oximetry 100 99 Oxygen Delivery Nasal Cannula Oxygen Flow Rate 2 06/16/22 08:00 Temperature Pulse Rate Respiratory Rate Blood Pressure Pulse Oximetry 99 Oxygen Delivery Nasal Cannula Oxygen Flow Rate 2 Intake/Output Intake/Output: Intake & Output 06/13/22 06/14/22 06/15/22 06/16/22 23:59 23:59 23:59 23:59 Intake Total 6427 386 6572 250 Output Total 3200 0 Balance 1440 -2240 1490 250 Meds/Results Medications: Active Medications Generic Name Dose Route Start Last Admin Trade Name Freq PRN Reason Stop Dose Admin Alteplase, Recombinant 2 mg 06/07/22 10:28 06/07/22 11:01 Alteplase 2 Mg Vial (Cathflo) IV PUSH 2 mg ONCE PRN Administration Line Occlusion Amlodipine Besylate 5 mg 06/05/22 09:00 06/05/22 10:54 Amlodipine Besylate 5 Mg Tablet PO 5 mg DAILY ROBERT Administration Benzonatate 100 mg 06/05/22 11:45
[2022-06-16] MEDS: SALINE LOCK FLUSH 10 ML IV PUSH ×3 (11:32→20:30)
[2022-06-16] MEDS: FAMOTIDINE 10 MG TABLET PO (11:33)
[2022-06-16] MEDS: predniSONE 20 MG TABLET 60 MG PO (11:33)
[2022-06-16] MEDS: BETAMETHASONE/CLOTRIMAZOLE CR 15 GM TUBE 1 APPLIC TOPICAL ×2 (11:33→20:30)
[2022-06-16] MEDS: MULTIVITAMINS /C LUTEIN (CENTRUM SILVER) TABLET *BKC 1 TAB PO (11:33)
[2022-06-16] MEDS: LORATADINE 10 MG TABLET PO (11:33)
[2022-06-16] MEDS: ACIDOPHILUS/BULGARICUS CHEWABLE TABLET 1 TABLET PO (11:33)
[2022-06-16] MEDS: BUMETANIDE 1 MG TABLET PO (11:33)
[2022-06-16] MEDS: OMEGA 3 POLYUNSAT FATTY ACIDS 1 GM CAP PO (11:34)
--- NOTE | 2022-06-16 11:34 | PC.NURSE ---
[facility] down this a.m. Medications charted late.
--- NOTE | 2022-06-16 13:42 | PM.PNNEP ---
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 s/p pulse dose steroids and on oral prednisone bronchoscopy (on 06/07/22) with findings of bleeding/hemorrhage as well s/p IV cytoxan (on 06/10/22) s/p HD catheter placement (on 06/09/22) HD today will transition to oral cytoxan in a couple of weeks; continue weaning steroids (will decrease 40mg qday) the hope is for possible renal recovery but he may need ongoing dialysis until this occurs -- case management arranging outpatient HD which it appears he will need on discharge follow trend of repeat labs and UOP (to assess for potential renal recovery) (2) Chronic kidney disease, stage IV (severe): Code(s): N18.4 - Chronic kidney disease, stage 4 (severe) Status: Chronic Assessment and Plan: since 2019, creatinine has been running ~ 1.4 - 1.7mg/dl however, in July 2021, it increased to 1.93mg/dl then, in March 2022, it was 2.32mg/dl on discharge in early May 2022, it was 3.3mg/dl outpatient labs on 05/28/22, creatinine up to 4.4mg/dl probably has some underlying chronic kidney disease due to HTN, vascular disease/CHF, and age not clear when microscopic polyangiitis started ... renal biopsy did not show significant chronic disease (3) Acute exacerbation of congestive heart failure: Qualifiers: Heart failure type: unspecified Qualified Code(s): I50.9 - Heart failure, unspecified Code(s): I50.9 - Heart failure, unspecified Status: Acute Assessment and Plan: removing fluid with dialysis continue fluid restriction on oral diuretics follow I/Os (urine output) (4) Pneumonia: Qualifiers: Laterality: right Lung location: unspecified part of lung Pneumonia type: due to unspecified organism Qualified Code(s): J18.9 - Pneumonia, unspecified organism Code(s): J18.9 - Pneumonia, unspecified organism Status: Acute Assessment and Plan: as suspected by admission imaging completed course of antibiotics culture data noted (5) HTN (hypertension): Code(s): I10 - Essential (primary) hypertension Status: Chronic Assessment and Plan: reasonable control at this time follow trend of hemodynamics (6) Anemia: Code(s): D64.9 - Anemia, unspecified Status: Chronic Assessment and Plan: likely due to CKD +/- RAMIRO and acute illness. Epogen with HD resume anticoagulation?? follow trend of H/H Will continue to follow. Subjective Date/time seen: 06/16/22 13:42 Tolerating hemodialysis treatment at the time of my visit (seen on HD at ~ 1:30PM); making urine but unclear how much as I/Os not well documented but BUN and creatinine do rise in-between dialysis treatments; respiratory status seems relatively stable. Exam Narrative: General: WD/WN elderly male in NAD Heart: normal S1 and S2; no rub Lungs: clear anteriorly and coarse at bases Abdomen: soft, nontender, nondistended, positive bowel sounds Extremities: trace edema noted Skin: no rash or nodules Objective Data Vital Signs Vital Signs: Vital Signs Temp Pulse Resp BP Pulse Ox O2 Del Method O2 Flow Rate 06/16/22 08:00 99 Nasal Cannula 2 06/16/22 04:47 97.7 F 78 18 100/60 99 06/15/22 20:00 100 Nasal Cannula 2 06/15/22 19:56 88 06/15/22 19:20 97.7 F 82 18 141/82 H 100 06/15/22 15:02 98.6 F 98 16 128/77 100 Intake/Output Intake/Output: Intake & Output 06/13/22 06/14/22 06/15/22 06/16/22 23:59 23:59 23:59 23:59 Intake Total 1173 845 1315 730 Output Total 3200 0 Balance 1440 -2240 1490 730
--- NOTE | 2022-06-16 13:42 | P.PNNP_ITS ---
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 * s/p pulse dose steroids and on oral prednisone * bronchoscopy (on 06/07/22) with findings of bleeding/hemorrhage as well * s/p IV cytoxan (on 06/10/22) * s/p HD catheter placement (on 06/09/22) * HD today * will transition to oral cytoxan in a couple of weeks; continue weaning steroids (will decrease 40mg qday) * the hope is for possible renal recovery but he may need ongoing dialysis until this occurs -- case management arranging outpatient HD which it appears he will need on discharge * follow trend of repeat labs and UOP (to assess for potential renal recovery) (2) Chronic kidney disease, stage IV (severe): Code(s): N18.4 - Chronic kidney disease, stage 4 (severe) Status: Chronic Assessment and Plan: * since 2019, creatinine has been running ~ 1.4 - 1.7mg/dl * however, in July 2021, it increased to 1.93mg/dl * then, in March 2022, it was 2.32mg/dl * on discharge in early May 2022, it was 3.3mg/dl * outpatient labs on 05/28/22, creatinine up to 4.4mg/dl * probably has some underlying chronic kidney disease due to HTN, vascular disease/CHF, and age * not clear when microscopic polyangiitis started ... * renal biopsy did not show significant chronic disease (3) Acute exacerbation of congestive heart failure: Qualifiers: Heart failure type: unspecified Qualified Code(s): I50.9 - Heart failure, unspecified Code(s): I50.9 - Heart failure, unspecified Status: Acute Assessment and Plan: * removing fluid with dialysis * continue fluid restriction * on oral diuretics * follow I/Os (urine output) (4) Pneumonia: Qualifiers: Laterality: right Lung location: unspecified part of lung Pneumonia type: due to unspecified organism Qualified Code(s): J18.9 - Pneumonia, unspecified organism Code(s): J18.9 - Pneumonia, unspecified organism Status: Acute Assessment and Plan: * as suspected by admission imaging * completed course of antibiotics * culture data noted (5) HTN (hypertension): Code(s): I10 - Essential (primary) hypertension Status: Chronic Assessment and Plan: * reasonable control at this time * follow trend of hemodynamics (6) Anemia: Code(s): D64.9 - Anemia, unspecified Status: Chronic Assessment and Plan: * likely due to CKD +/- RAMIRO and acute illness. * Epogen with HD * resume anticoagulation?? * follow trend of H/H Will continue to follow. Subjective Date/time seen: 06/16/22 13:42 Tolerating hemodialysis treatment at the time of my visit (seen on HD at ~ 1:30PM); making urine but unclear how much as I/Os not well documented but BUN and creatinine do rise in-between dialysis treatments; respiratory status seems relatively stable. Exam Narrative: General: WD/WN elderly male in NAD Heart: normal S1 and S2; no rub Lungs: clear anteriorly and coarse at bases Abdomen: soft, nontender, nondistended, positive bowel sounds Extremities: trace edema noted Skin: no rash or nodules Objective Data Vital Signs Vital Signs:
[2022-06-16] MEDS: EPOETIN ALFA-EPBX 20,000 UNITS/ML VIAL 20000 UNITS IV PUSH (16:46)
[2022-06-16 18:57] LABS: Complement Total CH50 53 U/mL (31-60)
[2022-06-16] MEDS: METOPROLOL TARTRATE 50 MG TAB PO (20:29)
[2022-06-17] VITALS (9 sets, daily range): BP systolic 101–114; BP diastolic 77–79; PULSE 70–108; RESP 18; TEMP 36.6–37; O2SAT 94–98; BMI 40.9
[2022-06-17] MEDS: SALINE LOCK FLUSH 10 ML IV PUSH ×3 (05:35→20:07)
[2022-06-17 05:37] LABS: Hematocrit 28.7 % (42.0-52.0); Hemoglobin 8.8 g/dL (14.0-18.0); Mean Corpuscular HGB Conc 30.7 g/dl (32-36); Mean Corpuscular Hemoglobin 31.2 pg (26-34); Mean Corpuscular Volume 101.8 fl (80-100); Platelet Count Result 156 k/mm3 (150-375); Red Blood Count 2.82 M/mm3 (4.6-6.20); Red Cell Distribution Width 16.2 % (11.5-14.5); White Blood Count 13.4 K/mm3 (4.5-10.0)
[2022-06-17 05:54] LABS: Chloride 102 mmol/L (98-107)
[2022-06-17 05:57] LABS: Anion Gap 4 mmol/L (8-16); Blood Urea Nitrogen 46 mg/dL (9-20); Calcium 7.8 mg/dL (8.4-10.2); Carbon Dioxide 31 mmol/L (22-30); Estimated CRCL calculation 27 ml/min; Estimated Glomerular Filt Rate 23; Glucose 99 mg/dL (65-110); Magnesium 2.1 mg/dL (1.6-2.3); Potassium 4.5 mmol/L (3.4-5.0); Sodium 137 mmol/L (137-145)
[2022-06-17] MEDS: ACIDOPHILUS/BULGARICUS CHEWABLE TABLET 1 TABLET PO (08:36)
[2022-06-17] MEDS: BETAMETHASONE/CLOTRIMAZOLE CR 15 GM TUBE 1 APPLIC TOPICAL ×2 (08:36→20:09)
[2022-06-17] MEDS: LORATADINE 10 MG TABLET PO (08:37)
[2022-06-17] MEDS: BUMETANIDE 1 MG TABLET PO (08:37)
[2022-06-17] MEDS: METOPROLOL TARTRATE 50 MG TAB PO ×2 (08:37→20:07)
[2022-06-17] MEDS: MULTIVITAMINS /C LUTEIN (CENTRUM SILVER) TABLET *BKC 1 TAB PO (08:37)
[2022-06-17] MEDS: FAMOTIDINE 10 MG TABLET PO (08:37)
[2022-06-17] MEDS: OMEGA 3 POLYUNSAT FATTY ACIDS 1 GM CAP PO (08:37)
[2022-06-17] MEDS: predniSONE 20 MG TABLET PO ×2 (08:37→16:40)
--- NOTE | 2022-06-17 11:48 | PM.IMPN ---
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 Continue Bumex. Also using HD to control fluid status. (3) Hypertension: Code(s): I10 - Essential (primary) hypertension Status: Acute Assessment and Plan: BP stable. Continue curent treatment (4) Atrial fibrillation: Qualifiers: Atrial fibrillation type: unspecified Qualified Code(s): I48.91 - Unspecified atrial fibrillation Code(s): I48.91 - Unspecified atrial fibrillation Status: Acute Assessment and Plan: Patient with hemoptysis with bronch showing old blood clots in the lower trachea. Was on xarelto but now on hold. Continue lopressor. Resume Xarelto when okay with nephrology. Plan Plan for SNF at discharge. Care coordination consulted Subjective Date/time seen: 06/17/22 11:48 Interval history: 81yo male with CKD here for CHF and RAMIRO. Patient feeling well. He is up walking to the bathroom with using a cane. No chest pain or shortness of breath. He tolerated hemodialysis yesterday. Eating okay Exam Narrative: AF 114/77 70 18 98% 2L Gen - NARD Chest - CTA bilaterally, nml RR. Tunneled IJ HD catheter right upper chest CV - RRR S1/S2 Abd - Soft, NT/ND, Positive BS Ext - No pedal edema Psych - Nml mood and affect Skin - Warm and dry Objective Data Vital Signs Vital Signs: Vital Signs - 24 hr 06/16/22 13:12 06/16/22 13:23 06/16/22 13:40 Temperature 98.1 F Pulse Rate 90 87 81 Respiratory Rate 16 Blood Pressure 157/79 H 132/85 146/77 H Pulse Oximetry Oxygen Delivery Oxygen Flow Rate 06/16/22 14:00 06/16/22 14:20 06/16/22 14:40 Temperature Pulse Rate 80 78 78 Respiratory Rate Blood Pressure 123/77 162/88 H 162/90 H Pulse Oximetry Oxygen Delivery Oxygen Flow Rate 06/16/22 15:00 06/16/22 15:20 06/16/22 15:40 Temperature Pulse Rate 93 90 94 Respiratory Rate Blood Pressure 134/72 124/84 115/64 Pulse Oximetry Oxygen Delivery Oxygen Flow Rate 06/16/22 16:00 06/16/22 16:20 06/16/22 16:58 Temperature Pulse Rate 78 81 72 Respiratory Rate Blood Pressure 148/95 H 128/85 153/87 H Pulse Oximetry Oxygen Delivery Oxygen Flow Rate 06/16/22 17:05 06/16/22 19:45 06/16/22 20:29 Temperature 98.1 F 97.6 F Pulse Rate 83 61 74 Respiratory Rate 16 18 Blood Pressure 135/63 118/82 Pulse Oximetry 100 Oxygen Delivery Oxygen Flow Rate 06/16/22 20:56 06/16/22 20:00 06/17/22 04:34 Temperature 98.6 F Pulse Rate 74 80 Respiratory Rate 18 18 Blood Pressure 114/77 Pulse Oximetry 95 95 98 Oxygen Delivery Nasal Cannula Nasal Cannula Oxygen Flow Rate 2 2 06/17/22 08:00 06/17/22 08:37 Temperature Pulse Rate 70 Respiratory Rate Blood Pressure Pulse Oximetry 98 Oxygen Delivery Nasal Cannula Oxygen Flow Rate 2 Intake/Output Intake/
--- NOTE | 2022-06-17 12:40 | PM.PNNEP ---
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 s/p pulse dose steroids and on oral prednisone bronchoscopy (on 06/07/22) with findings of bleeding/hemorrhage as well s/p IV cytoxan (on 06/10/22) s/p HD catheter placement (on 06/09/22) plan next HD tomorrow or Tuesday depending on outpatient HD schedule will transition to oral cytoxan in a couple of weeks; continue weaning steroids (down to 40mg qday) the hope is for possible renal recovery but he may need ongoing dialysis until this occurs -- case management arranging outpatient HD which it appears he will need on discharge follow trend of repeat labs and UOP (to assess for potential renal recovery) (2) Chronic kidney disease, stage IV (severe): Code(s): N18.4 - Chronic kidney disease, stage 4 (severe) Status: Chronic Assessment and Plan: since 2019, creatinine has been running ~ 1.4 - 1.7mg/dl however, in July 2021, it increased to 1.93mg/dl then, in March 2022, it was 2.32mg/dl on discharge in early May 2022, it was 3.3mg/dl outpatient labs on 05/28/22, creatinine up to 4.4mg/dl probably has some underlying chronic kidney disease due to HTN, vascular disease/CHF, and age not clear when microscopic polyangiitis started ... renal biopsy did not show significant chronic disease (3) Acute exacerbation of congestive heart failure: Qualifiers: Heart failure type: unspecified Qualified Code(s): I50.9 - Heart failure, unspecified Code(s): I50.9 - Heart failure, unspecified Status: Acute Assessment and Plan: removing fluid with dialysis continue fluid restriction on oral diuretics follow I/Os (urine output) (4) Pneumonia: Qualifiers: Laterality: right Lung location: unspecified part of lung Pneumonia type: due to unspecified organism Qualified Code(s): J18.9 - Pneumonia, unspecified organism Code(s): J18.9 - Pneumonia, unspecified organism Status: Acute Assessment and Plan: as suspected by admission imaging completed course of antibiotics culture data noted (5) HTN (hypertension): Code(s): I10 - Essential (primary) hypertension Status: Chronic Assessment and Plan: reasonable control at this time follow trend of hemodynamics (6) Anemia: Code(s): D64.9 - Anemia, unspecified Status: Chronic Assessment and Plan: likely due to CKD +/- RAMIRO and acute illness. Epogen with HD resume anticoagulation?? follow trend of H/H Long extensive discussion (greater than 20 minutes) with patient's daughter, Valeria, by phone with regard to the results of the kidney biopsy, the likely need for continued dialysis on discharge, ongoing therapy with steroids as well as cytoxan, and the hope for possible renal recovery and possible discontinuation of renal replacement therapy as well as discharge disposition. She appeared to voice understanding. Will continue to follow. Subjective Date/time seen: 06/17/22 12:40 Tolerated dialysis treatment yesterday without any issues or problems; breathing/respiratory status seems stable if not better; no apparent distress voiced at the time of my visit; no issues/events overnight or earlier this morning. Exam Narrative: General: WD/WN elderly male in NAD Heart: normal S1 and S2; no rub Lungs: clear anteriorly and coarse at bases Abdomen: soft, nontender, nondistended, positive bowel sounds Extremities: trace edema noted Skin: warm and dry Objective Data Vital Signs Vital Signs: Vital Signs Temp Pulse Resp BP Pulse Ox O2 Del Method O2 Flow Rate 06/17/22 08:37
--- NOTE | 2022-06-17 12:40 | P.PNNP_ITS ---
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 * s/p pulse dose steroids and on oral prednisone * bronchoscopy (on 06/07/22) with findings of bleeding/hemorrhage as well * s/p IV cytoxan (on 06/10/22) * s/p HD catheter placement (on 06/09/22) * plan next HD tomorrow or Tuesday depending on outpatient HD schedule * will transition to oral cytoxan in a couple of weeks; continue weaning steroids (down to 40mg qday) * the hope is for possible renal recovery but he may need ongoing dialysis until this occurs -- case management arranging outpatient HD which it appears he harry l need on discharge * follow trend of repeat labs and UOP (to assess for potential renal recovery) (2) Chronic kidney disease, stage IV (severe): Code(s): N18.4 - Chronic kidney disease, stage 4 (severe) Status: Chronic Assessment and Plan: * since 2019, creatinine has been running ~ 1.4 - 1.7mg/dl * however, in July 2021, it increased to 1.93mg/dl * then, in March 2022, it was 2.32mg/dl * on discharge in early May 2022, it was 3.3mg/dl * outpatient labs on 05/28/22, creatinine up to 4.4mg/dl * probably has some underlying chronic kidney disease due to HTN, vascular disease/CHF, and age * not clear when microscopic polyangiitis started ... * renal biopsy did not show significant chronic disease (3) Acute exacerbation of congestive heart failure: Qualifiers: Heart failure type: unspecified Qualified Code(s): I50.9 - Heart failure, unspecified Code(s): I50.9 - Heart failure, unspecified Status: Acute Assessment and Plan: * removing fluid with dialysis * continue fluid restriction * on oral diuretics * follow I/Os (urine output) (4) Pneumonia: Qualifiers: Laterality: right Lung location: unspecified part of lung Pneumonia type: due to unspecified organism Qualified Code(s): J18.9 - Pneumonia, unspecified organism Code(s): J18.9 - Pneumonia, unspecified organism Status: Acute Assessment and Plan: * as suspected by admission imaging * completed course of antibiotics * culture data noted (5) HTN (hypertension): Code(s): I10 - Essential (primary) hypertension Status: Chronic Assessment and Plan: * reasonable control at this time * follow trend of hemodynamics (6) Anemia: Code(s): D64.9 - Anemia, unspecified Status: Chronic Assessment and Plan: * likely due to CKD +/- RAMIRO and acute illness. * Epogen with HD * resume anticoagulation?? * follow trend of H/H Long extensive discussion (greater than 20 minutes) with patient's daughter, Valeria, by phone with regard to the results of the kidney biopsy, the likely need for continued dialysis on discharge, ongoing therapy with steroids as well as cytoxan, and the hope for possible renal recovery and possible discontinuation of renal replacement therapy as well as discharge disposition. She appeared to voice understanding. Will continue to follow. Subjective Date/time seen: 06/17/22 12:40 Tolerated dialysis treatment yesterday without any issues or problems; breathing/respiratory status seems stable if not better; no apparent distress voiced at the time of my visit; no issues/ev
--- NOTE | 2022-06-17 15:07 | HOMEO2EVAL ---
Evaluation was performed at [facility] Home Oxygen Evaluation RC: Home Oxygen (O2) Evaluation Start: 06/17/22 11:48 Freq: ONCE Status: Active Protocol: RPE Activity Type Activity Date Activity User E-sign Co-sign Detail Recorded Client Recorded Date Recorded By Document 06/17/22 14:45 DJO [email or web address] 06/17/22 15:07 DJO Document 06/17/22 14:50 [email or web address] [email or web address] 06/17/22 15:07 DJO Document 06/17/22 15:00 [email or web address] [email or web address] 06/17/22 15:07 DJO 06/17/22 06/17/22 06/17/22 14:45 14:50 15:00 Home O2 Evaluation [Oxygen] -Test Phase Resting Exercise Resting -Oxygen Delivery Room Air Room Air Room Air [Pulse Oximetry] -Pulse Oximetry (90-100 %) 95 94 95 [Pulse Rate] -Pulse Rate (60-100 beats/min) 85 108 H 88 [Evaluation] -Activity Tolerance Fair [Charges] -Treatment Charges O2 Evaluation - Inpatient
--- NOTE | 2022-06-17 15:07 | PCRCNOTE ---
HOME O2 EVAL COMPLETE, NO REQUIREMENTS
[2022-06-18 05:13] LABS: Hematocrit 31.9 % (42.0-52.0); Hemoglobin 9.8 g/dL (14.0-18.0); Mean Corpuscular HGB Conc 30.7 g/dl (32-36); Mean Corpuscular Hemoglobin 31.5 pg (26-34); Mean Corpuscular Volume 102.6 fl (80-100); Mean Platelet Volume 9.9 fl (7.4-10.4); Platelet Count Result 172 k/mm3 (150-375); Red Blood Count 3.11 M/mm3 (4.6-6.20); White Blood Count 10.6 K/mm3 (4.5-10.0)
[2022-06-18 05:32] LABS: Albumin Level 3.5 g/dL (3.5-5.1); Anion Gap 6 mmol/L (8-16); Blood Urea Nitrogen 66 mg/dL (9-20); Carbon Dioxide 29 mmol/L (22-30); Chloride 102 mmol/L (98-107); Estimated CRCL calculation 21 ml/min; Estimated Glomerular Filt Rate 17; Glucose 141 mg/dL (65-110); Magnesium 2.1 mg/dL (1.6-2.3); Phosphorus 4.7 mg/dL (2.5-4.5); Potassium 4.9 mmol/L (3.4-5.0); Sodium 137 mmol/L (137-145)
[2022-06-18] MEDS: SALINE LOCK FLUSH 10 ML IV PUSH ×3 (05:58→20:49)
[2022-06-18 10:55] VITALS: BP 101/64; PULSE 88
[2022-06-18] MEDS: FAMOTIDINE 10 MG TABLET PO (10:58)
[2022-06-18] MEDS: ACIDOPHILUS/BULGARICUS CHEWABLE TABLET 1 TABLET PO (10:58)
[2022-06-18] MEDS: MULTIVITAMINS /C LUTEIN (CENTRUM SILVER) TABLET *BKC 1 TAB PO (10:58)
[2022-06-18] MEDS: BUMETANIDE 1 MG TABLET PO (10:58)
[2022-06-18] MEDS: OMEGA 3 POLYUNSAT FATTY ACIDS 1 GM CAP PO (10:58)
[2022-06-18] MEDS: LORATADINE 10 MG TABLET PO (10:58)
[2022-06-18] MEDS: predniSONE 20 MG TABLET PO ×2 (10:58→18:40)
[2022-06-18] MEDS: BETAMETHASONE/CLOTRIMAZOLE CR 15 GM TUBE 1 APPLIC TOPICAL ×2 (10:58→20:49)
[2022-06-18 11:03] VITALS: PULSE 88
[2022-06-18] MEDS: METOPROLOL TARTRATE 50 MG TAB PO ×2 (11:03→20:47)
--- NOTE | 2022-06-18 11:38 | P.PNNP_ITS ---
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 * s/p pulse dose steroids and on oral prednisone * bronchoscopy (on 06/07/22) with findings of bleeding/hemorrhage as well * s/p IV cytoxan (on 06/10/22) * s/p HD catheter placement (on 06/09/22) * plan next HD tomorrow * will transition to oral cytoxan in a couple of weeks; continue weaning steroids (down to 40mg qday) * the hope is for possible renal recovery but he may need ongoing dialysis until this occurs -- case management arranging outpatient HD which it appears he will need on discharge * follow trend of repeat labs and UOP (to assess for potential renal recovery) (2) Chronic kidney disease, stage IV (severe): Code(s): N18.4 - Chronic kidney disease, stage 4 (severe) Status: Chronic Assessment and Plan: * since 2019, creatinine has been running ~ 1.4 - 1.7mg/dl * however, in July 2021, it increased to 1.93mg/dl * then, in March 2022, it was 2.32mg/dl * on discharge in early May 2022, it was 3.3mg/dl * outpatient labs on 05/28/22, creatinine up to 4.4mg/dl * probably has some underlying chronic kidney disease due to HTN, vascular disease/CHF, and age * not clear when microscopic polyangiitis started ... * renal biopsy did not show significant chronic disease (3) Acute exacerbation of congestive heart failure: Qualifiers: Heart failure type: unspecified Qualified Code(s): I50.9 - Heart failure, unspecified Code(s): I50.9 - Heart failure, unspecified Status: Acute Assessment and Plan: * removing fluid with dialysis * continue fluid restriction * on oral diuretics * follow I/Os (urine output) (4) Pneumonia: Qualifiers: Laterality: right Lung location: unspecified part of lung Pneumonia type: due to unspecified organism Qualified Code(s): J18.9 - Pneumonia, unspecified organism Code(s): J18.9 - Pneumonia, unspecified organism Status: Acute Assessment and Plan: * as suspected by admission imaging * completed course of antibiotics * culture data noted (5) HTN (hypertension): Code(s): I10 - Essential (primary) hypertension Status: Chronic Assessment and Plan: * reasonable control at this time * follow trend of hemodynamics (6) Anemia: Code(s): D64.9 - Anemia, unspecified Status: Chronic Assessment and Plan: * likely due to CKD +/- RAMIRO and acute illness. * Epogen with HD * resume anticoagulation?? * follow trend of H/H Will continue to follow. Subjective Date/time seen: 06/18/22 11:38 Overall, seems to be doing reasonably well; no apparent issues or problems voiced at the time of my visit other than he did not sleep very well last night; no other events overnight or earlier this morning; eating and drinking relatively well; no other acute complaints to report currently. Exam Narrative: General: WD/WN elderly male in NAD Heart: normal S1 and S2; no rub Lungs: clear anteriorly and coarse at bases Abdomen: soft, nontender, nondistended, positive bowel sounds Extremities: trace edema noted Skin: warm and dry Objective Data Vital Signs Vital Signs:
--- NOTE | 2022-06-18 11:38 | PM.PNNEP ---
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 s/p pulse dose steroids and on oral prednisone bronchoscopy (on 06/07/22) with findings of bleeding/hemorrhage as well s/p IV cytoxan (on 06/10/22) s/p HD catheter placement (on 06/09/22) plan next HD tomorrow will transition to oral cytoxan in a couple of weeks; continue weaning steroids (down to 40mg qday) the hope is for possible renal recovery but he may need ongoing dialysis until this occurs -- case management arranging outpatient HD which it appears he will need on discharge follow trend of repeat labs and UOP (to assess for potential renal recovery) (2) Chronic kidney disease, stage IV (severe): Code(s): N18.4 - Chronic kidney disease, stage 4 (severe) Status: Chronic Assessment and Plan: since 2019, creatinine has been running ~ 1.4 - 1.7mg/dl however, in July 2021, it increased to 1.93mg/dl then, in March 2022, it was 2.32mg/dl on discharge in early May 2022, it was 3.3mg/dl outpatient labs on 05/28/22, creatinine up to 4.4mg/dl probably has some underlying chronic kidney disease due to HTN, vascular disease/CHF, and age not clear when microscopic polyangiitis started ... renal biopsy did not show significant chronic disease (3) Acute exacerbation of congestive heart failure: Qualifiers: Heart failure type: unspecified Qualified Code(s): I50.9 - Heart failure, unspecified Code(s): I50.9 - Heart failure, unspecified Status: Acute Assessment and Plan: removing fluid with dialysis continue fluid restriction on oral diuretics follow I/Os (urine output) (4) Pneumonia: Qualifiers: Laterality: right Lung location: unspecified part of lung Pneumonia type: due to unspecified organism Qualified Code(s): J18.9 - Pneumonia, unspecified organism Code(s): J18.9 - Pneumonia, unspecified organism Status: Acute Assessment and Plan: as suspected by admission imaging completed course of antibiotics culture data noted (5) HTN (hypertension): Code(s): I10 - Essential (primary) hypertension Status: Chronic Assessment and Plan: reasonable control at this time follow trend of hemodynamics (6) Anemia: Code(s): D64.9 - Anemia, unspecified Status: Chronic Assessment and Plan: likely due to CKD +/- RAMIRO and acute illness. Epogen with HD resume anticoagulation?? follow trend of H/H Will continue to follow. Subjective Date/time seen: 06/18/22 11:38 Overall, seems to be doing reasonably well; no apparent issues or problems voiced at the time of my visit other than he did not sleep very well last night; no other events overnight or earlier this morning; eating and drinking relatively well; no other acute complaints to report currently. Exam Narrative: General: WD/WN elderly male in NAD Heart: normal S1 and S2; no rub Lungs: clear anteriorly and coarse at bases Abdomen: soft, nontender, nondistended, positive bowel sounds Extremities: trace edema noted Skin: warm and dry Objective Data Vital Signs Vital Signs: Vital Signs Temp Pulse Resp BP Pulse Ox O2 Del Method 06/18/22 08:00 Room Air 06/18/22 10:55 88 101/64 06/18/22 11:03 88 06/17/22 20:00 72 18 98 Room Air 06/17/22 20:07 72 06/17/22 15:52 97.9 F 91 18 101/79 98 06/17/22 15:00 88 95 Room Air 06/17/22 14:50 108 H 94 Room Air 06/17/22 14:45 85 95 Room Air Intake/Output Intake/Output: Intake & Output 06/15/22 06/16/22 06/17/22 06/18/22 23:59 23:59 23:59 23:5
[2022-06-18 14:00] VITALS: BP 119/84; PULSE 80; RESP 16; TEMP 36.6; O2SAT 99
--- NOTE | 2022-06-18 15:23 | PM.IMPN ---
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 -appreciate nephrology input. (2) Congestive heart failure: Code(s): I50.9 - Heart failure, unspecified Status: Acute Assessment and Plan: Appears compensated. Continue Bumex. Also using HD to control fluid status. Home O2 evaluation showing patient does not require oxygen at home. (3) Hypertension: Code(s): I10 - Essential (primary) hypertension Status: Acute Assessment and Plan: BP stable. Continue curent treatment (4) Atrial fibrillation: Qualifiers: Atrial fibrillation type: unspecified Qualified Code(s): I48.91 - Unspecified atrial fibrillation Code(s): I48.91 - Unspecified atrial fibrillation Status: Acute Assessment and Plan: Patient with hemoptysis with bronch showing old blood clots in the lower trachea. Was on xarelto but now on hold. Continue lopressor. Resume Xarelto when okay with nephrology. Plan Plan for SNF at discharge. Care coordination consulted Subjective Date/time seen: 06/18/22 15:23 Interval history: 81yo male with CKD here for CHF and RAMIRO. Patient slept poorly last night. He was up to the chair today. Denies any chest pain or shortness of breath. Dialysis is planned for tomorrow. no further hemoptysis. Exam Narrative: AF 119/84 80 16 99% ra Gen - NARD Chest - CTA bilaterally, nml RR. Tunneled IJ HD catheter right upper chest CV - RRR S1/S2 Abd - Soft, NT/ND, Positive BS Ext - No pedal edema Psych - Nml mood and affect Skin - Warm and dry Objective Data Vital Signs Vital Signs: Vital Signs - 24 hr 06/17/22 15:52 06/17/22 20:07 06/17/22 20:00 Temperature 97.9 F Pulse Rate 91 72 72 Respiratory Rate 18 18 Blood Pressure 101/79 Pulse Oximetry 98 98 Oxygen Delivery Room Air 06/18/22 11:03 06/18/22 10:55 06/18/22 08:00 Temperature Pulse Rate 88 88 Respiratory Rate Blood Pressure 101/64 Pulse Oximetry Oxygen Delivery Room Air 06/18/22 14:00 Temperature 97.9 F Pulse Rate 80 Respiratory Rate 16 Blood Pressure 119/84 Pulse Oximetry 99 Oxygen Delivery Intake/Output Intake/Output: Intake & Output 06/15/22 06/16/22 06/17/22 06/18/22 23:59 23:59 23:59 23:59 Intake Total 1490 1310 1190 760 Output Total 0 1900 Balance 1490 -590 1190 760 Meds/Results Medications: Active Medications Generic Name Dose Route Start Last Admin Trade Name Freq PRN Reason Stop Dose Admin Alteplase, Recombinant 2 mg 06/07/22 10:28 06/07/22 11:01 Alteplase 2 Mg Vial (Cathflo) IV PUSH 2 mg ONCE PRN Administration Line Occlusion Amlodipine Besylate 5 mg 06/05/22 09:00 06/05/22 10:54 Amlodipine Besylate 5 Mg Tablet PO 5 mg DAILY ROBERT Administration Benzonatate 100 mg 06/05/22 11:45 06/10/22 03:23 Benzonatate 100 Mg Capsule PO 100 mg Q8H PRN Administration Cough Bumetanide 1 mg 06/15/22 13:15 06/18/22 10:58 Bumetanide 1 Mg Tablet PO 1 mg DAILY ROBERT Admini
[2022-06-18 19:57] VITALS: BP 126/89; PULSE 84; RESP 18; TEMP 36.6; O2SAT 99
[2022-06-18 20:47] VITALS: PULSE 84
--- NOTE | 2022-06-18 22:53 | PC.NURSE ---
patient complains of bleeding from dialysis site. Approximately 4 cm of catheter noted. Unaware of origainal station. Area surrounding catheter cleaned and dressing reinforced.
[2022-06-18] MEDS: traMADol HCL (*CRX) 50 MG TABLET PO (23:30)
[2022-06-19] VITALS (20 sets, daily range): BP systolic 95–131; BP diastolic 53–93; PULSE 70–94; RESP 16–22; TEMP 35.9–36.6; O2SAT 97–99
[2022-06-19] MEDS: SALINE LOCK FLUSH 10 ML IV PUSH ×3 (06:57→20:31)
[2022-06-19 07:06] LABS: Hematocrit 27.5 % (42.0-52.0); Hemoglobin 8.6 g/dL (14.0-18.0); Mean Corpuscular HGB Conc 31.3 g/dl (32-36); Mean Corpuscular Hemoglobin 31.5 pg (26-34); Mean Corpuscular Volume 100.7 fl (80-100); Mean Platelet Volume 10.2 fl (7.4-10.4); Platelet Count Result 155 k/mm3 (150-375); Red Blood Count 2.73 M/mm3 (4.6-6.20); Red Cell Distribution Width 15.8 % (11.5-14.5); White Blood Count 9.7 K/mm3 (4.5-10.0)
[2022-06-19 07:15] LABS: Anion Gap 6 mmol/L (8-16); Blood Urea Nitrogen 85 mg/dL (9-20); Calcium 7.7 mg/dL (8.4-10.2); Carbon Dioxide 27 mmol/L (22-30); Chloride 98 mmol/L (98-107); Estimated CRCL calculation 21 ml/min; Estimated Glomerular Filt Rate 16; Glucose 122 mg/dL (65-110); Phosphorus 5.3 mg/dL (2.5-4.5); Potassium 5.1 mmol/L (3.4-5.0); Sodium 131 mmol/L (137-145)
[2022-06-19] MEDS: BUMETANIDE 1 MG TABLET PO (10:05)
[2022-06-19] MEDS: BETAMETHASONE/CLOTRIMAZOLE CR 15 GM TUBE 1 APPLIC TOPICAL ×2 (10:05→20:31)
[2022-06-19] MEDS: ACIDOPHILUS/BULGARICUS CHEWABLE TABLET 1 TABLET PO (10:05)
[2022-06-19] MEDS: FAMOTIDINE 10 MG TABLET PO (10:05)
[2022-06-19] MEDS: OMEGA 3 POLYUNSAT FATTY ACIDS 1 GM CAP PO (10:06)
[2022-06-19] MEDS: predniSONE 20 MG TABLET PO ×2 (10:06→17:55)
[2022-06-19] MEDS: MULTIVITAMINS /C LUTEIN (CENTRUM SILVER) TABLET *BKC 1 TAB PO (10:06)
[2022-06-19] MEDS: LORATADINE 10 MG TABLET PO (10:06)
[2022-06-19] MEDS: METOPROLOL TARTRATE 50 MG TAB PO (10:07)
--- NOTE | 2022-06-19 14:24 | PM.IMPN ---
Progress Note: A&P Assessment and Plan (1) Acute on chronic kidney failure: Qualifiers: Acute renal failure type: unspecified Chronic kidney disease stage: unspecified stage Qualified Code(s): N17.9 - Acute kidney failure, unspecified; N18.9 - Chronic kidney disease, unspecified Code(s): N17.9 - Acute kidney failure, unspecified; N18.9 - Chronic kidney disease, unspecified Status: Acute Assessment and Plan: Patietn with RAMRIO due to?BIOPSY PROVEN?focal crescentic necrotizing pauci-immune glomerulonephritis -p-ANCA positive -- this would argue in favor of microscopic polyangiitis -s/p pulse dose steroids and on oral prednisone -bronchoscopy (on 06/07/22) with findings of bleeding/hemorrhage as well -s/p IV cytoxan (on 06/10/22) now on oral -s/p HD catheter placement (on 06/09/22) -weaning steroids -Baseline Cr 1.4 - 1.7mg/dl with underlying CKD due to HTN, vascular disease/CHF, and age -No further episodes of hemoptysis. -appreciate nephrology input. Discharge in process. Plan to discharge home and outpatient dialysis (2) Congestive heart failure: Code(s): I50.9 - Heart failure, unspecified Status: Acute Assessment and Plan: Appears compensated. Continue Bumex. Also using HD to control fluid status. Home O2 evaluation showing patient does not require oxygen at home. (3) Hypertension: Code(s): I10 - Essential (primary) hypertension Status: Acute Assessment and Plan: BP stable. Continue curent treatment (4) Atrial fibrillation: Qualifiers: Atrial fibrillation type: unspecified Qualified Code(s): I48.91 - Unspecified atrial fibrillation Code(s): I48.91 - Unspecified atrial fibrillation Status: Acute Assessment and Plan: Patient with hemoptysis with bronch showing old blood clots in the lower trachea. Was on xarelto but now on hold. Continue lopressor. Resume Xarelto when okay with nephrology. Plan Home at discharge now. Care coordination arranging outpatient HD. DVT Prophylaxis - SCDs Subjective Date/time seen: 06/19/22 14:24 Interval history: 81yo male with CKD here for CHF and RAMIRO. No issues overnight. He slept well last night. No chest pain or shortness of breath. No abdominal pain. Has some mild knee pain that he relates to the change in the weather. He is walking independently. Exam Narrative: AF 105/72 84 18 97% ra Gen - NARD lying semi recumbent in bed currently undergoing dialysis. Chest - lungs clear anteriorly. Tunneled IJ HD catheter right upper chest accessed CV - RRR S1/S2 Abd - Soft, NT/ND, Positive BS Ext - No pedal edema Psych - Nml mood and affect Skin - Warm and dry Objective Data Vital Signs Vital Signs: Vital Signs - 24 hr 06/18/22 19:57 06/18/22 20:47 06/18/22 20:00 Temperature 97.8 F Pulse Rate 84 84 Respiratory Rate 18 Blood Pressure 126/89 Pulse Oximetry 99 Oxygen Delivery Room Air 06/19/22 05:02 06/19/22 10:07 06/19/22 10:00 Temperature 97.7 F Pulse Rate 76 84 84 Respiratory Rate 18 Blood Pressure 117/79 105/72 Pulse Oximetry 97 Oxygen Delivery 06/19/22 10:05 Temperature Pulse Rate Respiratory Rate Blood Pressure Pulse Oximetry Oxygen Delivery Room Air Intake/Output Intake/Output: Intake & Output 06/16/22 06/17/22 06/18/22 06/19/22 23:59 23:59 23:59 23:59 Intake Total 1310 1190 1480 720 Output Total 1900 Balance -590 1190 1480 720 Meds/Results Medications: Active Medications Generic Name Dose Route Start Last Admin Trade Name Freq PRN Reason Stop Dose Admin Alteplase, Recombinant 2 mg 06/07/22 10:28 06/07/22 11:01 Alteplase 2 Mg Vial (Cathflo) IV PUSH 2 mg ONCE PRN Administration Line Occlusion Amlodipine Besylate 5 mg 06/05/22 09:00 06/05/22 10:54 Amlodipine Besylate 5 Mg Tablet PO 5 mg DAILY ROBERT Administration Benzonatate 100 mg 06/05/22 11:45 06/10
--- NOTE | 2022-06-19 14:35 | P.PNNP_ITS ---
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 * s/p pulse dose steroids and on oral prednisone * bronchoscopy (on 06/07/22) with findings of bleeding/hemorrhage as well * s/p IV cytoxan (on 06/10/22) * s/p HD catheter placement (on 06/09/22) * HD today and continue T/T/S schedule for now * will transition to oral cytoxan in another week - continue weaning steroids (down to 40mg qday) * the hope is for possible renal recovery but he may need ongoing dialysis until this occurs -- case management arranging outpatient HD which it appears he will need on discharge * follow trend of repeat labs and UOP (to assess for potential renal recovery) (2) Chronic kidney disease, stage IV (severe): Code(s): N18.4 - Chronic kidney disease, stage 4 (severe) Status: Chronic Assessment and Plan: * since 2019, creatinine has been running ~ 1.4 - 1.7mg/dl * however, in July 2021, it increased to 1.93mg/dl * then, in March 2022, it was 2.32mg/dl * on discharge in early May 2022, it was 3.3mg/dl * outpatient labs on 05/28/22, creatinine up to 4.4mg/dl * probably has some underlying chronic kidney disease due to HTN, vascular disease/CHF, and age * not clear when microscopic polyangiitis started ... * renal biopsy did not show significant chronic disease (3) Acute exacerbation of congestive heart failure: Qualifiers: Heart failure type: unspecified Qualified Code(s): I50.9 - Heart failure, unspecified Code(s): I50.9 - Heart failure, unspecified Status: Acute Assessment and Plan: * removing fluid with dialysis * continue fluid restriction * on oral diuretics * follow I/Os (urine output) (4) Pneumonia: Qualifiers: Laterality: right Lung location: unspecified part of lung Pneumonia type: due to unspecified organism Qualified Code(s): J18.9 - Pneumonia, unspecified organism Code(s): J18.9 - Pneumonia, unspecified organism Status: Acute Assessment and Plan: * as suspected by admission imaging * completed course of antibiotics * culture data noted (5) HTN (hypertension): Code(s): I10 - Essential (primary) hypertension Status: Chronic Assessment and Plan: * reasonable control at this time * follow trend of hemodynamics (6) Anemia: Code(s): D64.9 - Anemia, unspecified Status: Chronic Assessment and Plan: * likely due to CKD +/- RAMIRO and acute illness. * Epogen with HD * resume anticoagulation -- given RAMIRO, would transition to eliquis * follow trend of H/H Will continue to follow. Subjective Date/time seen: 06/19/22 14:35 Tolerating dialysis treatment at the time of my visit (see on HD at 2:15PM); no apparent distress voiced at this time; feels reasonably well with no other acute complaints to report. Exam Narrative: General: WD/WN elderly male in NAD Heart: normal S1 and S2; no rub Lungs: clear anteriorly and coarse at bases Abdomen: soft, nontender, nondistended, positive bowel sounds Extremities: trace edema noted Skin: warm and intact Objective Data Vital Signs Vital Signs:
--- NOTE | 2022-06-19 14:35 | PM.PNNEP ---
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 s/p pulse dose steroids and on oral prednisone bronchoscopy (on 06/07/22) with findings of bleeding/hemorrhage as well s/p IV cytoxan (on 06/10/22) s/p HD catheter placement (on 06/09/22) HD today and continue T/T/S schedule for now will transition to oral cytoxan in another week - continue weaning steroids (down to 40mg qday) the hope is for possible renal recovery but he may need ongoing dialysis until this occurs -- case management arranging outpatient HD which it appears he will need on discharge follow trend of repeat labs and UOP (to assess for potential renal recovery) (2) Chronic kidney disease, stage IV (severe): Code(s): N18.4 - Chronic kidney disease, stage 4 (severe) Status: Chronic Assessment and Plan: since 2019, creatinine has been running ~ 1.4 - 1.7mg/dl however, in July 2021, it increased to 1.93mg/dl then, in March 2022, it was 2.32mg/dl on discharge in early May 2022, it was 3.3mg/dl outpatient labs on 05/28/22, creatinine up to 4.4mg/dl probably has some underlying chronic kidney disease due to HTN, vascular disease/CHF, and age not clear when microscopic polyangiitis started ... renal biopsy did not show significant chronic disease (3) Acute exacerbation of congestive heart failure: Qualifiers: Heart failure type: unspecified Qualified Code(s): I50.9 - Heart failure, unspecified Code(s): I50.9 - Heart failure, unspecified Status: Acute Assessment and Plan: removing fluid with dialysis continue fluid restriction on oral diuretics follow I/Os (urine output) (4) Pneumonia: Qualifiers: Laterality: right Lung location: unspecified part of lung Pneumonia type: due to unspecified organism Qualified Code(s): J18.9 - Pneumonia, unspecified organism Code(s): J18.9 - Pneumonia, unspecified organism Status: Acute Assessment and Plan: as suspected by admission imaging completed course of antibiotics culture data noted (5) HTN (hypertension): Code(s): I10 - Essential (primary) hypertension Status: Chronic Assessment and Plan: reasonable control at this time follow trend of hemodynamics (6) Anemia: Code(s): D64.9 - Anemia, unspecified Status: Chronic Assessment and Plan: likely due to CKD +/- RAMIRO and acute illness. Epogen with HD resume anticoagulation -- given RAMIRO, would transition to eliquis follow trend of H/H Will continue to follow. Subjective Date/time seen: 06/19/22 14:35 Tolerating dialysis treatment at the time of my visit (see on HD at 2:15PM); no apparent distress voiced at this time; feels reasonably well with no other acute complaints to report. Exam Narrative: General: WD/WN elderly male in NAD Heart: normal S1 and S2; no rub Lungs: clear anteriorly and coarse at bases Abdomen: soft, nontender, nondistended, positive bowel sounds Extremities: trace edema noted Skin: warm and intact Objective Data Vital Signs Vital Signs: Vital Signs Temp Pulse Resp BP Pulse Ox O2 Del Method 06/19/22 13:59 70 129/77 06/19/22 10:05 Room Air 06/19/22 10:00 84 105/72 06/19/22 10:07 84 06/19/22 05:02 97.7 F 76 18 117/79 97 06/18/22 20:00 Room Air 06/18/22 20:47 84 06/18/22 19:57 97.8 F 84 18 126/89 99 Intake/Output Intake/Output: Intake & Output 06/16/22 06/17/22 06/18/22 06/19/22 23:59 23:59 23:59 23:59 Intake Total 1310 1190 1480 720 Output Total 1900 Balance -590 1190 1480 720 Meds/R
--- NOTE | 2022-06-19 14:37 | PC.NURSE ---
patient off of unit to dialysis
[2022-06-19] MEDS: SODIUM CHLORIDE 0.9% IV 1,000 ML 999 ML IV CONT (17:02)
[2022-06-19] MEDS: EPOETIN ALFA-EPBX 20,000 UNITS/ML VIAL 20000 UNITS IV PUSH (17:03)
[2022-06-19] MEDS: APIXABAN 2.5 MG TABLET PO (20:29)
[2022-06-20] MEDS: traMADol HCL (*CRX) 50 MG TABLET PO (05:05)
[2022-06-20] MEDS: SALINE LOCK FLUSH 10 ML IV PUSH ×3 (05:06→20:37)
[2022-06-20 05:26] VITALS: BP 128/79; PULSE 79; RESP 18; TEMP 36.6; O2SAT 97
[2022-06-20 06:46] LABS: Hematocrit 28.9 % (42.0-52.0); Mean Corpuscular HGB Conc 31.1 g/dl (32-36); Mean Corpuscular Hemoglobin 31.3 pg (26-34); Mean Corpuscular Volume 100.3 fl (80-100); Mean Platelet Volume 9.6 fl (7.4-10.4); Platelet Count Result 143 k/mm3 (150-375); Red Blood Count 2.88 M/mm3 (4.6-6.20); White Blood Count 8.9 K/mm3 (4.5-10.0)
[2022-06-20 06:59] LABS: Albumin Level 2.9 g/dL (3.5-5.1); Anion Gap 3 mmol/L (8-16); Blood Urea Nitrogen 53 mg/dL (9-20); Calcium 7.6 mg/dL (8.4-10.2); Carbon Dioxide 29 mmol/L (22-30); Chloride 103 mmol/L (98-107); Estimated CRCL calculation 26 ml/min; Estimated Glomerular Filt Rate 22; Glucose 117 mg/dL (65-110); Phosphorus 4.8 mg/dL (2.5-4.5); Potassium 4.7 mmol/L (3.4-5.0); Sodium 135 mmol/L (137-145)
[2022-06-20] MEDS: MULTIVITAMINS /C LUTEIN (CENTRUM SILVER) TABLET *BKC 1 TAB PO (09:40)
[2022-06-20] MEDS: APIXABAN 2.5 MG TABLET PO ×2 (09:40→20:35)
[2022-06-20] MEDS: predniSONE 20 MG TABLET PO ×2 (09:40→18:13)
[2022-06-20] MEDS: LORATADINE 10 MG TABLET PO (09:40)
[2022-06-20] MEDS: FAMOTIDINE 10 MG TABLET PO (09:40)
[2022-06-20] MEDS: OMEGA 3 POLYUNSAT FATTY ACIDS 1 GM CAP PO (09:40)
[2022-06-20] MEDS: ACIDOPHILUS/BULGARICUS CHEWABLE TABLET 1 TABLET PO (09:40)
[2022-06-20] MEDS: BUMETANIDE 1 MG TABLET PO (09:40)
[2022-06-20] MEDS: BETAMETHASONE/CLOTRIMAZOLE CR 15 GM TUBE 1 APPLIC TOPICAL ×2 (09:41→20:35)
[2022-06-20 09:43] VITALS: BP 108/75; PULSE 90
[2022-06-20] MEDS: METOPROLOL TARTRATE 50 MG TAB PO (09:43)
--- NOTE | 2022-06-20 11:13 | PM.PNNEP ---
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 s/p pulse dose steroids and on oral prednisone bronchoscopy (on 06/07/22) with findings of bleeding/hemorrhage as well s/p IV cytoxan (on 06/10/22) s/p HD catheter placement (on 06/09/22) HD yesterday and continue T/T/S schedule for now will transition to oral cytoxan in another week - continue weaning steroids (down to 40mg qday) the hope is for possible renal recovery but he may need ongoing dialysis until this occurs -- case management arranging outpatient HD which it appears he will need on discharge follow trend of repeat labs and UOP (to assess for potential renal recovery) (2) Chronic kidney disease, stage IV (severe): Code(s): N18.4 - Chronic kidney disease, stage 4 (severe) Status: Chronic Assessment and Plan: since 2019, creatinine has been running ~ 1.4 - 1.7mg/dl however, in July 2021, it increased to 1.93mg/dl then, in March 2022, it was 2.32mg/dl on discharge in early May 2022, it was 3.3mg/dl outpatient labs on 05/28/22, creatinine up to 4.4mg/dl probably has some underlying chronic kidney disease due to HTN, vascular disease/CHF, and age not clear when microscopic polyangiitis started ... renal biopsy did not show significant chronic disease (3) Acute exacerbation of congestive heart failure: Qualifiers: Heart failure type: unspecified Qualified Code(s): I50.9 - Heart failure, unspecified Code(s): I50.9 - Heart failure, unspecified Status: Acute Assessment and Plan: removing fluid with dialysis continue fluid restriction on oral diuretics follow I/Os (urine output) (4) Pneumonia: Qualifiers: Laterality: right Lung location: unspecified part of lung Pneumonia type: due to unspecified organism Qualified Code(s): J18.9 - Pneumonia, unspecified organism Code(s): J18.9 - Pneumonia, unspecified organism Status: Acute Assessment and Plan: as suspected by admission imaging completed course of antibiotics culture data noted (5) HTN (hypertension): Code(s): I10 - Essential (primary) hypertension Status: Chronic Assessment and Plan: reasonable control at this time follow trend of hemodynamics (6) Anemia: Code(s): D64.9 - Anemia, unspecified Status: Chronic Assessment and Plan: likely due to CKD +/- RAMIRO and acute illness. Epogen with HD resumed on anticoagulation (eliquis) follow trend of H/H Not opposed to discharge from renal perspective assuming outpatient dialysis schedule has been finalized along with discharge disposition. Will continue to follow. Subjective Date/time seen: 06/20/22 11:13 Tolerated dialysis yesterday without any issues or problems; started back on anticoagulation (with eliquis instead of xarelto) given his known history of atrial fibrillation; breathing/respiratory status appears fairly stable; no other acute issues/events overnight or earlier this AM. Exam Narrative: General: WD/WN elderly male in NAD Heart: normal S1 and S2; no rub Lungs: clear anteriorly and coarse at bases Abdomen: soft, nontender, nondistended, positive bowel sounds Extremities: trace edema noted Skin: warm and intact Objective Data Vital Signs Vital Signs: Vital Signs Temp Pulse Resp BP Pulse Ox O2 Del Method 06/20/22 09:43 90 108/75 06/20/22 09:43 90 06/20/22 05:26 98 F 79 18 128/79 97 06/19/22 20:00 Room Air 06/19/22 20:30 94 06/19/22 20:28 122/78 06/19/22 19:51 97.8 F 94 22 H 95/53 L 99 06/19/22 17:39 97.8 F
--- NOTE | 2022-06-20 11:13 | P.PNNP_ITS ---
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 * s/p pulse dose steroids and on oral prednisone * bronchoscopy (on 06/07/22) with findings of bleeding/hemorrhage as well * s/p IV cytoxan (on 06/10/22) * s/p HD catheter placement (on 06/09/22) * HD yesterday and continue T/T/S schedule for now * will transition to oral cytoxan in another week - continue weaning steroids (down to 40mg qday) * the hope is for possible renal recovery but he may need ongoing dialysis until this occurs -- case management arranging outpatient HD which it appears he will need on discharge * follow trend of repeat labs and UOP (to assess for potential renal recovery) (2) Chronic kidney disease, stage IV (severe): Code(s): N18.4 - Chronic kidney disease, stage 4 (severe) Status: Chronic Assessment and Plan: * since 2019, creatinine has been running ~ 1.4 - 1.7mg/dl * however, in July 2021, it increased to 1.93mg/dl * then, in March 2022, it was 2.32mg/dl * on discharge in early May 2022, it was 3.3mg/dl * outpatient labs on 05/28/22, creatinine up to 4.4mg/dl * probably has some underlying chronic kidney disease due to HTN, vascular disease/CHF, and age * not clear when microscopic polyangiitis started ... * renal biopsy did not show significant chronic disease (3) Acute exacerbation of congestive heart failure: Qualifiers: Heart failure type: unspecified Qualified Code(s): I50.9 - Heart failure, unspecified Code(s): I50.9 - Heart failure, unspecified Status: Acute Assessment and Plan: * removing fluid with dialysis * continue fluid restriction * on oral diuretics * follow I/Os (urine output) (4) Pneumonia: Qualifiers: Laterality: right Lung location: unspecified part of lung Pneumonia type: due to unspecified organism Qualified Code(s): J18.9 - Pneumonia, unspecified organism Code(s): J18.9 - Pneumonia, unspecified organism Status: Acute Assessment and Plan: * as suspected by admission imaging * completed course of antibiotics * culture data noted (5) HTN (hypertension): Code(s): I10 - Essential (primary) hypertension Status: Chronic Assessment and Plan: * reasonable control at this time * follow trend of hemodynamics (6) Anemia: Code(s): D64.9 - Anemia, unspecified Status: Chronic Assessment and Plan: * likely due to CKD +/- RAMIRO and acute illness. * Epogen with HD * resumed on anticoagulation (eliquis) * follow trend of H/H Not opposed to discharge from renal perspective assuming outpatient dialysis schedule has been finalized along with discharge disposition. Will continue to follow. Subjective Date/time seen: 06/20/22 11:13 Tolerated dialysis yesterday without any issues or problems; started back on anticoagulation (with eliquis instead of xarelto) given his known history of atrial fibrillation; breathing/respiratory status appears fairly stable; no other acute issues/events overnight or earlier this AM. Exam Narrative: General: WD/WN elderly male in NAD Heart: normal S1 and S2; no rub Lungs: clear anteriorly and coarse at bases Abdomen: sof
[2022-06-20 14:00] VITALS: BP 120/71; PULSE 92; RESP 18; TEMP 36.2; O2SAT 97
--- NOTE | 2022-06-20 16:06 | PM.IMPN ---
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 -appreciate nephrology input. Discharge in process. Plan to discharge home tomorrow. Outpatient dialysis has been arranged (2) Congestive heart failure: Code(s): I50.9 - Heart failure, unspecified Status: Acute Assessment and Plan: Appears compensated. Continue Bumex. Also using HD to control fluid status. Home O2 evaluation showing patient does not require oxygen at home. (3) Hypertension: Code(s): I10 - Essential (primary) hypertension Status: Acute Assessment and Plan: BP stable. Continue curent treatment (4) Atrial fibrillation: Qualifiers: Atrial fibrillation type: unspecified Qualified Code(s): I48.91 - Unspecified atrial fibrillation Code(s): I48.91 - Unspecified atrial fibrillation Status: Acute Assessment and Plan: Patient with hemoptysis with bronch showing old blood clots in the lower trachea. Was on Xarelto but now on hold. Continue Lopressor. Eliquis started yesterday. Tolerating the anticoagulation. Care coordination to see about affordability. Plan Home at discharge now. Care coordination has arranged outpatient HD. DVT Prophylaxis - Eliquis Subjective Date/time seen: 06/20/22 16:06 Interval history: 81yo male with CKD here for CHF and RAMIRO. Patient had hemodialysis yesterday and tolerated this well. 2 L was removed. He is feeling reasonably well. He is having problems sleeping. He does complain of knee pain which is chronic. Exam Narrative: AF 120/71 92 18 97% ra Gen - NARD Chest - lungs clear anteriorly. Tunneled IJ HD catheter right upper chest with mild blood staining of dressing CV - irregular S1/S2 with 2/6 systolic murmur Abd - Soft, NT/ND, Positive BS Ext - No pedal edema Psych - Nml mood and affect Skin - Warm and dry Objective Data Vital Signs Vital Signs: Vital Signs - 24 hr 06/19/22 16:20 06/19/22 16:40 06/19/22 17:00 Temperature Pulse Rate 88 86 90 Respiratory Rate Blood Pressure 108/84 118/86 129/93 H Pulse Oximetry Oxygen Delivery 06/19/22 17:18 06/19/22 17:39 06/19/22 19:51 Temperature 97.8 F 97.8 F Pulse Rate 89 84 94 Respiratory Rate 16 22 H Blood Pressure 123/84 131/92 H 95/53 L Pulse Oximetry 99 Oxygen Delivery 06/19/22 20:28 06/19/22 20:30 06/19/22 20:00 Temperature Pulse Rate 94 Respiratory Rate Blood Pressure 122/78 Pulse Oximetry Oxygen Delivery Room Air 06/20/22 05:26 06/20/22 09:43 06/20/22 09:43 Temperature 98 F Pulse Rate 79 90 90 Respiratory Rate 18 Blood Pressure 128/79 108/75 Pulse Oximetry 97 Oxygen Delivery 06/20/22 08:00 06/20/22 14:00 Temperature 97.2 F L Pulse Rate 92 Respiratory Rate 18 Blood Pressure 120/71 Pulse Oximetry 97 Oxygen Delivery Room Air Intake/Output Intake/Output: Intake & Output 06/17/22 06/18/22 06/19/22 06/20/22 23:59 23:59 23:59 23:59 Intake Total 1190 1480 960 600 Output Total 1999 Balance 11
[2022-06-20 19:59] VITALS: BP 126/72; PULSE 85; RESP 18; TEMP 36.6; O2SAT 97
[2022-06-20 20:00] VITALS: PULSE 80; RESP 18; O2SAT 97
[2022-06-20 20:35] VITALS: PULSE 80
[2022-06-21 05:07] VITALS: BP 112/82; PULSE 83; RESP 20; TEMP 36.7; O2SAT 97
[2022-06-21 05:44] LABS: Hematocrit 28.7 % (42.0-52.0); Mean Corpuscular HGB Conc 31.4 g/dl (32-36); Mean Corpuscular Hemoglobin 31.5 pg (26-34); Mean Corpuscular Volume 100.3 fl (80-100); Platelet Count Result 134 k/mm3 (150-375); Red Blood Count 2.86 M/mm3 (4.6-6.20); Red Cell Distribution Width 15.5 % (11.5-14.5); White Blood Count 8.2 K/mm3 (4.5-10.0)
[2022-06-21 06:04] LABS: Albumin Level 2.9 g/dL (3.5-5.1); Anion Gap 6 mmol/L (8-16); Blood Urea Nitrogen 75 mg/dL (9-20); Calcium 7.5 mg/dL (8.4-10.2); Carbon Dioxide 29 mmol/L (22-30); Chloride 101 mmol/L (98-107); Estimated CRCL calculation 22 ml/min; Estimated Glomerular Filt Rate 18; Glucose 141 mg/dL (65-110); Phosphorus 4.8 mg/dL (2.5-4.5); Potassium 4.8 mmol/L (3.4-5.0); Sodium 136 mmol/L (137-145)
[2022-06-21] MEDS: SALINE LOCK FLUSH 10 ML IV PUSH ×2 (07:04→13:54)
[2022-06-21 09:10] VITALS: PULSE 97
[2022-06-21] MEDS: BUMETANIDE 1 MG TABLET PO (09:10)
[2022-06-21] MEDS: FAMOTIDINE 10 MG TABLET PO (09:10)
[2022-06-21] MEDS: METOPROLOL TARTRATE 50 MG TAB PO (09:10)
[2022-06-21] MEDS: MULTIVITAMINS /C LUTEIN (CENTRUM SILVER) TABLET *BKC 1 TAB PO (09:10)
[2022-06-21] MEDS: OMEGA 3 POLYUNSAT FATTY ACIDS 1 GM CAP PO (09:10)
[2022-06-21] MEDS: predniSONE 20 MG TABLET PO (09:10)
[2022-06-21] MEDS: APIXABAN 2.5 MG TABLET PO (09:10)
[2022-06-21] MEDS: ACIDOPHILUS/BULGARICUS CHEWABLE TABLET 1 TABLET PO (09:10)
[2022-06-21] MEDS: BETAMETHASONE/CLOTRIMAZOLE CR 15 GM TUBE 1 APPLIC TOPICAL (09:15)
[2022-06-21] MEDS: LORATADINE 10 MG TABLET PO (09:18)
--- NOTE | 2022-06-21 11:10 | PM.PNNEP ---
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 s/p pulse dose steroids and on oral prednisone bronchoscopy (on 06/07/22) with findings of bleeding/hemorrhage as well s/p IV cytoxan (on 06/10/22) s/p HD catheter placement (on 06/09/22) HD tomorrow and continue T/T/S schedule for now will transition to oral cytoxan next week - continue weaning steroids (down to 40mg qday) the hope is for possible renal recovery but he may need ongoing dialysis until this occurs -- outpatient HD has been arranged follow trend of repeat labs and UOP (to assess for potential renal recovery) (2) Chronic kidney disease, stage IV (severe): Code(s): N18.4 - Chronic kidney disease, stage 4 (severe) Status: Chronic Assessment and Plan: since 2019, creatinine has been running ~ 1.4 - 1.7mg/dl however, in July 2021, it increased to 1.93mg/dl then, in March 2022, it was 2.32mg/dl on discharge in early May 2022, it was 3.3mg/dl outpatient labs on 05/28/22, creatinine up to 4.4mg/dl probably has some underlying chronic kidney disease due to HTN, vascular disease/CHF, and age not clear when microscopic polyangiitis started ... renal biopsy did not show significant chronic disease (3) Acute exacerbation of congestive heart failure: Qualifiers: Heart failure type: unspecified Qualified Code(s): I50.9 - Heart failure, unspecified Code(s): I50.9 - Heart failure, unspecified Status: Acute Assessment and Plan: removing fluid with dialysis continue fluid restriction on oral diuretics follow I/Os (urine output) (4) Pneumonia: Qualifiers: Laterality: right Lung location: unspecified part of lung Pneumonia type: due to unspecified organism Qualified Code(s): J18.9 - Pneumonia, unspecified organism Code(s): J18.9 - Pneumonia, unspecified organism Status: Acute Assessment and Plan: as suspected by admission imaging completed course of antibiotics culture data noted (5) HTN (hypertension): Code(s): I10 - Essential (primary) hypertension Status: Chronic Assessment and Plan: reasonable control at this time follow trend of hemodynamics (6) Anemia: Code(s): D64.9 - Anemia, unspecified Status: Chronic Assessment and Plan: likely due to CKD +/- RAMIRO and acute illness. Epogen with HD resumed on anticoagulation (eliquis) follow trend of H/H Not opposed to discharge from renal perspective if otherwise medically stable. Will continue to follow. Subjective Date/time seen: 06/21/22 11:10 Seems to be doing reasonably well at this time; no apparent distress noted; no issues/events/problems overnight or earlier this morning; breathing/respiratory status is stable if not improved; no apparent distress noted. Exam Narrative: General: WD/WN elderly male in NAD Heart: normal S1 and S2; no rub Lungs: clear anteriorly and coarse at bases Abdomen: soft, nontender, nondistended, positive bowel sounds Extremities: trace edema noted Skin: no rash Objective Data Vital Signs Vital Signs: Vital Signs Temp Pulse Resp BP Pulse Ox O2 Del Method 06/21/22 09:10 97 06/21/22 05:07 98.1 F 83 20 112/82 97 06/20/22 20:00 80 18 97 Room Air 06/20/22 20:35 80 06/20/22 19:59 97.9 F 85 18 126/72 97 06/20/22 14:00 97.2 F L 92 18 120/71 97 Intake/Output Intake/Output: Intake & Output 06/18/22 06/19/22 06/20/22 06/21/22 23:59 23:59 23:59 23:59 Intake Total 0558 040 2113 360 Output Total 1999 Balance 1480 -1040 1380 360 Meds/Results Med
--- NOTE | 2022-06-21 11:10 | P.PNNP_ITS ---
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 * s/p pulse dose steroids and on oral prednisone * bronchoscopy (on 06/07/22) with findings of bleeding/hemorrhage as well * s/p IV cytoxan (on 06/10/22) * s/p HD catheter placement (on 06/09/22) * HD tomorrow and continue T/T/S schedule for now * will transition to oral cytoxan next week - continue weaning steroids (down to 40mg qday) * the hope is for possible renal recovery but he may need ongoing dialysis until this occurs -- outpatient HD has been arranged * follow trend of repeat labs and UOP (to assess for potential renal recovery) (2) Chronic kidney disease, stage IV (severe): Code(s): N18.4 - Chronic kidney disease, stage 4 (severe) Status: Chronic Assessment and Plan: * since 2019, creatinine has been running ~ 1.4 - 1.7mg/dl * however, in July 2021, it increased to 1.93mg/dl * then, in March 2022, it was 2.32mg/dl * on discharge in early May 2022, it was 3.3mg/dl * outpatient labs on 05/28/22, creatinine up to 4.4mg/dl * probably has some underlying chronic kidney disease due to HTN, vascular disease/CHF, and age * not clear when microscopic polyangiitis started ... * renal biopsy did not show significant chronic disease (3) Acute exacerbation of congestive heart failure: Qualifiers: Heart failure type: unspecified Qualified Code(s): I50.9 - Heart failure, unspecified Code(s): I50.9 - Heart failure, unspecified Status: Acute Assessment and Plan: * removing fluid with dialysis * continue fluid restriction * on oral diuretics * follow I/Os (urine output) (4) Pneumonia: Qualifiers: Laterality: right Lung location: unspecified part of lung Pneumonia type: due to unspecified organism Qualified Code(s): J18.9 - Pneumonia, unspecified organism Code(s): J18.9 - Pneumonia, unspecified organism Status: Acute Assessment and Plan: * as suspected by admission imaging * completed course of antibiotics * culture data noted (5) HTN (hypertension): Code(s): I10 - Essential (primary) hypertension Status: Chronic Assessment and Plan: * reasonable control at this time * follow trend of hemodynamics (6) Anemia: Code(s): D64.9 - Anemia, unspecified Status: Chronic Assessment and Plan: * likely due to CKD +/- RAMIRO and acute illness. * Epogen with HD * resumed on anticoagulation (eliquis) * follow trend of H/H Not opposed to discharge from renal perspective if otherwise medically stable. Will continue to follow. Subjective Date/time seen: 06/21/22 11:10 Seems to be doing reasonably well at this time; no apparent distress noted; no issues/events/problems overnight or earlier this morning; breathing/respiratory status is stable if not improved; no apparent distress noted. Exam Narrative: General: WD/WN elderly male in NAD Heart: normal S1 and S2; no rub Lungs: clear anteriorly and coarse at bases Abdomen: soft, nontender, nondistended, positive bowel sounds Extremities: trace edema noted Skin: no rash Objective Data Vital Signs Vital Signs:
--- NOTE | 2022-06-21 12:15 | PM.IMPN ---
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 -appreciate nephrology input. -I apologized for making him angry but tried to explain that we needed to make sure everything was set up. Outpatient dialysis has been arranged. Plan for discharge after discharge tomorrow. Not sure if there is something else at play here that will further prevent his discharge. (2) Congestive heart failure: Code(s): I50.9 - Heart failure, unspecified Status: Acute Assessment and Plan: Appears compensated. Continue Bumex. Also using HD to control fluid status. Home O2 evaluation showing patient does not require oxygen at home. (3) Hypertension: Code(s): I10 - Essential (primary) hypertension Status: Acute Assessment and Plan: BP stable. Continue curent treatment (4) Atrial fibrillation: Qualifiers: Atrial fibrillation type: unspecified Qualified Code(s): I48.91 - Unspecified atrial fibrillation Code(s): I48.91 - Unspecified atrial fibrillation Status: Acute Assessment and Plan: Patient with hemoptysis with bronch showing old blood clots in the lower trachea. Xarelto held. Continue Lopressor. Eliquis started /. Tolerating the anticoagulation. Care coordination to see about affordability. Plan Home at discharge now. Care coordination has arranged outpatient HD. DVT Prophylaxis - Eliquis Subjective Date/time seen: 06/21/22 12:15 Interval history: 81yo male with CKD here for CHF and RAMIRO. Patient feels tired. Eating okay. Plan was for home today. He states that he wants to stay and have dialysis tomorrow before discharge and that he can't be discharged today because 'things are not ready' and 'I need to get my ducks in a row'. When asked for clarification, patient becomes irate. Exam Narrative: AF 112/82 97 20 97% ra Gen - NARD Chest - lungs clear anteriorly. Tunneled IJ HD catheter right upper chest with mild blood staining of dressing CV - irregular S1/S2 Abd - Soft, NT/ND, Positive BS Ext - No pedal edema Psych - Nml mood and affect initially but quickly becomes unpleasant and irate. Using demeaning words 'doctorette'. When pushed to provide more details about why he can not be discharged today, he becomes frustrated. Skin - Warm and dry. small shallow ulcers along the base of the panus with clean bases and no surrounding erythema. groin showing scant erythema. Objective Data Vital Signs Vital Signs: Vital Signs - 24 hr 06/20/22 14:00 06/20/22 19:59 06/20/22 20:35 Temperature 97.2 F L 97.9 F Pulse Rate 92 85 80 Respiratory Rate 18 18 Blood Pressure 120/71 126/72 Pulse Oximetry 97 97 Oxygen Delivery 06/20/22 20:00 06/21/22 05:07 06/21/22 09:10 Temperature 98.1 F Pulse Rate 80 83 97 Respiratory Rate 18 20 Blood Pressure 112/82 Pulse Oximetry 97 97 Oxygen Delivery Room Air Intake/Output Intake/Output: Intake & Output 06/18/22 06/19/22 06/20/22 06/21/22 23:59 23:59 23:59 23:59 Intake Total 4882 690 7297 360 Output Total
[2022-06-21 14:00] VITALS: BP 132/87; PULSE 88; RESP 18; TEMP 36.4; O2SAT 98
--- NOTE | 2022-06-21 14:25 | PM.DS ---
DS: Admitting Diagnosis Discharge Date 06/21/22 Admitting Diagnosis Weakness DS: Discharge Diagnosis Discharge Diagnosis (1) Acute on chronic kidney failure: Qualifiers: Acute renal failure type: unspecified Chronic kidney disease stage: unspecified stage Qualified Code(s): N17.9 - Acute kidney failure, unspecified; N18.9 - Chronic kidney disease, unspecified Code(s): N17.9 - Acute kidney failure, unspecified; N18.9 - Chronic kidney disease, unspecified Status: Acute (2) Congestive heart failure: Code(s): I50.9 - Heart failure, unspecified Status: Acute (3) Hypertension: Code(s): I10 - Essential (primary) hypertension Status: Acute (4) Atrial fibrillation: Qualifiers: Atrial fibrillation type: unspecified Qualified Code(s): I48.91 - Unspecified atrial fibrillation Code(s): I48.91 - Unspecified atrial fibrillation Status: Acute (5) Hemoptysis: Code(s): R04.2 - Hemoptysis Status: Acute (6) Pneumonia: Code(s): J18.9 - Pneumonia, unspecified organism Status: Acute (7) Anemia: Code(s): D64.9 - Anemia, unspecified Status: Chronic DS: Summary Hospital Course Reason for hospitalization: 81yo male with CKD here for CHF and RAMIRO. Please see H&P for details Hospital Course: Patient presents with weakness and found to have RAMIRO. He has CKD with baseline Cr 1.4 - 1.7mg/dl with underlying CKD due to HTN, vascular disease/CHF, and age. PNA suspected on admission and he completed a course of abx. 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 05/09 glomeruli globally sclerotic with about 20% interstitial fibrosis. 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 Patient had pulse dose steroids and now on oral prednisone. And given IV cytoxan (on 06/10/22) now on oral cytoxan. Patient with hemoptysis with Bronchoscopy (on 06/07/22) showing bleeding/hemorrhage. Renal function continued to worsen and HD catheter placement on 06/09/22. No further episodes of hemoptysis. We were able to resume anticoagulation in the form of Eliquis. Patient felt to have Acute on chronic Diastolic CHF. He was treated with Bumex and using HD to control fluid status. Home O2 evaluation performed showing patient does not require oxygen at home. Patient with hemoptysis with bronch showing old blood clots in the lower trachea.?Xarelto was held. We continued Lopressor. Eliquis started 06/19 which he tolerated well. He has been up ambulating to the bathroom. He feels well. His renal function has not recovered since being on steroids and Cytoxan. Outpatient dialysis arranged. He overall did well and was able to be discharged home on 06/21/22. Status at Discharge Cognitive/behavioral status at discharge: Stable Time Spent with Patient Time attestation: Total time spent providing and/or coordinating discharge services: 35 minutes Time spent: Greater than 30 minutes Exam Narrative: AF 112/82 97 20 97% ra Gen - NARD Chest - lungs clear anteriorly. Tunneled IJ HD catheter right upper chest with mild blood staining of dressing CV - irregular S1/S2 Abd - Soft, NT/ND, Positive BS Ext - No pedal edema Psych - Nml mood and affect initially but quickly becomes unpleasant and irate. Using demeaning words 'doctorette'. When pushed to provide more details about why he can not be discharged today, he becomes frustrated. Skin - Warm and dry. small shallow ulcers along the base of the panus with clean bases and no surrounding erythema. groin showing scant erythema. DS: Data Data Completed and Pending Completed studies during hospitalization: Pending at discharge 06/07/22 15:03 Cytology [PTH] Routine Labs on day of discharge: Labs from last 24 hours 06/21/22 06/21/22 05:33 05:33 WBC 8.2 RBC 2.86 L Hgb 9.0 L Hct 28.7 L MCV 100.3 H MCH 31.5 MCHC 31.4 L RDW 15.5
--- NOTE | 2022-06-21 14:33 | PCPTNOTE ---
Attempted PT re-eval, pt refused stating I'm going home today. RN aware.
--- NOTE | 2022-06-25 10:31 | PC.NURSE ---
Respiratory cx are negative. Dr. Jose Luis garcia.
== END 2022-06-21 17:05 | disposition home health service (06) | DRG 673 ==
LOC: ANHED 06-05 00:13 → ANH3MED 06-05 00:52
PROVIDERS: Anesthesiology; Family Medicine; Internal Medicine Nephrology; Internal Medicine Pulmonary Disease; Physician Assistant; Surgery; Admitting Provider Internal Medicine; Emergency Provider Emergency Medicine; PCP Family Medicine; Visit Provider Internal Medicine
PROC: 0BJ08ZZ Inspection of Tracheobronchial Tree, Via Natural or Artificial Opening Endoscopic (ICD-10-PCS; CPT 31622; principal; 2022-06-07 14:00)
PROC: 0JH63XZ Insertion of Tunneled Vascular Access Device into Chest Subcutaneous Tissue and Fascia, Percutaneous Approach (ICD-10-PCS; CPT 36908; principal; 2022-06-09 11:30)
DX: N17.9 Acute kidney failure, unspecified (principal); I50.33 Acute on chronic diastolic (congestive) heart failure; J18.9 Pneumonia, unspecified organism; J96.01 Acute respiratory failure with hypoxia; I13.0 Hypertensive heart and chronic kidney disease with heart failure and stage 1 through stage 4 chronic kidney disease, or unspecified chronic kidney disease; Z68.41 Body mass index [BMI] 40.0-44.9, adult; R04.2 Hemoptysis; I48.91 Unspecified atrial fibrillation; M19.90 Unspecified osteoarthritis, unspecified site; E78.5 Hyperlipidemia, unspecified; M06.9 Rheumatoid arthritis, unspecified; N18.32 Chronic kidney disease, stage 3b; R31.29 Other microscopic hematuria; E66.01 Morbid (severe) obesity due to excess calories; D63.1 Anemia in chronic kidney disease; N18.4 Chronic kidney disease, stage 4 (severe); N05.8 Unspecified nephritic syndrome with other morphologic changes; Z20.822 Contact with and (suspected) exposure to COVID-19; Z82.49 Family history of ischemic heart disease and other diseases of the circulatory system; Z83.3 Family history of diabetes mellitus; Z87.891 Personal history of nicotine dependence; Z79.899 Other long term (current) drug therapy; Z79.01 Long term (current) use of anticoagulants
CPT/HCPCS: 36415; 36430; 36569; 36600; 50200; 71045; 71250; 76942; 77001; 80048; 80053; 80069; 80074; 80202; 81001; 81050; 82274; 82550; 82565; 82570; 82595; 82728; 82805; 83520; 83540; 83550; 83605; 83735; 83880; 84145; 84156; 84300; 84484; 84540; 85014; 85018; 85025; 85027; 85610; 85730; 85999; 86036; 86038; 86060; 86160; 86162; 86225; 86235; 86704; 86706; 86850; 86900; 86901; 86920; 87015; 87040; 87070; 87077; 87086; 87116; 87147; 87181; 87186; 87205; 87206; 87281; 87340; 87636; 88108; 88184; 88300; 88305; 88313; 88329; 88346; 88348; 88350; 93005; 94618; 97110; 97116; 97161; 97165; 97168; 97530; 97535; A9270; C1750; C1751; G0257; J0330; J0690; J0696; J1100; J1644; J1940; J2370; J2405; J2469; J2704; J2930; J2997; J3010; J3370; J3430; J7030; J7040; J7050; J7120; J7512; J9070; P9016; Q5105

== ENCOUNTER 2022-07-16 10:44 | Inpatient (IN) | payer MEDICARE, SELFPAY ==
[2022-07-16] VITALS (7 sets, daily range): BP systolic 96–136; BP diastolic 62–96; PULSE 76–92; RESP 16–18; TEMP 36.2–37; O2SAT 98–100; BMI 39.6
--- NOTE | ~2022-07-16 | XR_ITS ---
EXAMINATION: XR chest 1V portable DATE: 07/17/2022 07:48 INDICATION: Shortness of breath. TECHNIQUE: A single frontal view of the chest was obtained. COMPARISON: Chest single view 06/12/2022, chest CT 06/05/2022, 05/18/22 FINDINGS: There are airspace opacities in the perihilar regions, right worse the left. No pleural eff usion or pneumothorax. The heart size is normal. A right internal jugular central venous catheter is seen with tip at the superior cavoatrial junction. IMPRESSION: 1. Stable airspace opacities in the perihilar regions, right worse than left, consistent with pulmona ry edema versus pneumonia versus residual hemorrhage. Reviewed, dictated and finalized at location A. IOLOGY PHYSICIAN ASSISTANT IMPRESSION: 1. Stable airspace opacities in the perihilar regions, right worse than left, c onsistent with pulmonary edema versus pneumonia versus residual hemorrhage.
--- NOTE | 2022-07-16 11:38 | ECG_ITS ---
Measurements Intervals [place] Rate: 91 P: -7 FL: 122 QRS: -69 QRSD: 133 T: 69 QT: 349 QTc: 431 Interpretive Statements SINUS RHYTHM RIGHT BUNDLE BRANCH BLOCK LEFT ANTERIOR FASCICULAR BLOCK BASELINE ARTIFACT- I, II, III, AVR, AVL, AVF ABNORMAL ECG COMPARED TO ECG 06/04/2022 22:56:15 SINUS RHYTHM NOW PRESENT RIGHT BUNDLE-BRANCH BLOCK NOW PRESENT LEFT ANTERIOR FASCICULAR BLOCK NOW PRESENT Electronically Signed On 07-16-2022 16:57:26 FIBERGLASS ROLLER by Luca Kaufman D.O.
--- NOTE | 2022-07-16 11:45 | ECG_ITS ---
Measurements Intervals [place] Rate: 76 P: NV: 0 QRS: -13 QRSD: 100 T: 38 QT: 382 QTc: 430 Interpretive Statements ATRIAL FIBRILLATION VENTRICULAR PREMATURE COMPLEX INCOMPLETE RIGHT BUNDLE BRANCH BLOCK BORDERLINE ST ABNORMALITY- HIGH LATERAL LEADS BASELINE ARTIFACT- I, II, AVR, AVL, AVF, V3 ABNORMAL ECG COMPARED TO ECG 06/04/2022 22:56:15 NO SIGNIFICANT CHANGES Electronically Signed On 07-22-2022 12:57:48 MEDIA RELATIONS MANAGER by Luca Kaufman D.O.
[2022-07-16 12:53] LABS: Basophils Percent Auto 0.1 % (0.2-1.2); Eosinophils Percent Auto 0.1 % (0-4.4); Hematocrit 24.9 % (42.0-52.0); Immature Granulocyte Absolute 0.19 K/mm3 (0.00-0.031); Immature Granulocyte Percent A 1.9 % (0-0.5); Lymphocytes Absolute Auto 0.55 K/mm3 (0.9-3.2); Lymphocytes Percent Auto 5.4 % (18.3-44.2); Mean Corpuscular HGB Conc 32.1 g/dl (32-36); Mean Corpuscular Hemoglobin 31.6 pg (26-34); Mean Corpuscular Volume 98.4 fl (80-100); Mean Platelet Volume 9.8 fl (7.4-10.4); Monocytes Absolute Auto 0.7 K/mm3 (0.1-0.6); Monocytes Percent Auto 6.9 % (2.6-8.5); Neutrophils Absolute Auto 8.8 K/mm3 (1.3-6.7); Neutrophils Percent Auto 85.6 % (45.5-73.1); Nucleated Red Blood Cells Perc 0.4 % (0.0-0.2); Platelet Count Result 107 k/mm3 (150-375); Red Blood Count 2.53 M/mm3 (4.6-6.20); Red Cell Distribution Width 16.2 % (11.5-14.5); White Blood Count 10.2 K/mm3 (4.5-10.0)
[2022-07-16 12:58] LABS: Alanine Aminotransferase 26 U/L (6-50); Albumin Level 3.4 g/dL (3.5-5.1); Alkaline Phosphatase 35 U/L (38-126); Anion Gap 6 mmol/L (8-16); Aspartate Amino Transferase 21 U/L (17-59); Bilirubin,Total 0.5 mg/dL (0.2-1.3); Blood Urea Nitrogen 89 mg/dL (9-20); Carbon Dioxide 29 mmol/L (22-30); Chloride 92 mmol/L (98-107); Estimated CRCL calculation 20 ml/min; Estimated Glomerular Filt Rate 15; Glucose 93 mg/dL (65-110); Potassium 4.9 mmol/L (3.4-5.0); Sodium 127 mmol/L (137-145)
--- NOTE | 2022-07-16 13:08 | ED.DIZZY ---
HPI - Dizziness General Chief Complaint: Dizziness Stated Complaint: DIZZINESS WITH POSITION CHANGES Time Seen by Provider: 07/16/22 12:51 History of Present Illness HPI Narrative: Patient is an 81-year-old male with a history of ESRD on dialysis, A-fib on Eliquis, hypertension, hyperlipidemia presenting with lightheadedness and melena. States he was recently discharged from the hospital after being admitted for pneumonia. States he has been doing well until a couple of days ago when he started to have intermittent lightheadedness. States that then he had 2 episodes of melena. States that for the last day he has been increasingly short of breath, states he can only walk about 4-5 steps before having to stop. Patient is a dialysis patient, had dialysis yesterday. He denies headache, numbness or weakness, chest pain, shortness of breath, abdominal pain, vomiting, diarrhea, leg swelling. Related Data Home Medications Medication Instructions Recorded Confirmed Centrum Men 1 cap PO DAILY 05/16/22 07/16/22 [place] 3 Fish Oil 1 cap PO DAILY 05/16/22 07/16/22 Probiotic Blend 1 cap PO DAILY 05/16/22 07/16/22 metoprolol tartrate 50 mg tablet See Rx Instructions .Route .COMPLEX 07/16/22 07/16/22 Allergies Allergy/AdvReac Type Severity Reaction Status Date / Time camphor [From Biofreeze] Allergy Intermediate Hives Verified 07/16/22 18:33 menthol [From Biofreeze] Allergy Intermediate Hives Verified 07/16/22 18:33 Review of Systems Review of Systems: All systems reviewed & are unremarkable except as noted in HPI and below PMFSH Past Medical History Medical History Aortic stenosis, moderate Atrial fibrillation Atrial fibrillation CHF (congestive heart failure) DJD (degenerative joint disease) Dyspnea due to congestive heart failure Elevated lipids HLD (hyperlipidemia) HTN (hypertension) Hypertension Insomnia Insomnia Osteoarthritis Rheumatoid arthritis Surgical History Surgical History History of shoulder surgery History of total knee replacement History of total knee replacement Family History Family History Father Heart failure Father Family history of liver disease Diabetes mellitus Family history of kidney disease Mother Family history of diabetes mellitus in first degree relative Diabetes mellitus Family history of renal failure Other Family history of gout Hypertension Social History Social History Social History: Smoking packs per day: 0.5 Smoking cigarettes per day: 10.0 Years smoked: 5 Smoking pack-years: 2.50 Smoking status: Former smoker Tobacco type: cigarettes Second hand tobacco smoke exposure: Yes Smoking end date: 05/16/17 Alcohol intake: never Drinks per week: 1 Alcohol use details: Occasionally Substance use: never Substance use type: does not use Other substance usage details: alcohol - very rare Lack of Transportation: No Lack of Food: Never True Current Housing: I Have Housing Concerned About Future Housing: No Difficulty Paying Gas/Electric Bills: No Difficulty Paying for Meds: No Currently Unemployed: No Education: High School Diploma/GED Difficulty w/ Childcare or Family Care: No Living arrangements: alone Occupation/Education: retired Gender identity (if verbalized by the patient): Male Sexual Orientation (if Verbalized by the Patient): Straight or Heterosexual Spiritual care concerns: No Exam Narrative: GENERAL: Elderly male laying in bed in no acute distress HEAD: Normocephalic, atraumatic. EYES: PERRLA and EOMI. ENT: Nares clear, no rhinorrhea or epistaxis. Mucous membranes moist. NECK: Supple. CHEST: Clear to auscultation. No respiratory distress. TDC right chest HEART: Regular rate and
[2022-07-16 13:30] LABS: INR 1.3; Partial Thromboplastin Time 25.3 SECONDS (22.3-36.8); Prothrombin Time 15.9 Seconds (11.1-14.7)
[2022-07-16 14:51] LABS: Appearance Urine Cloudy (Clear); Bacteria Urine None Seen /hpf; Bilirubin Urine Negative (Negative); Blood Urine 3+ (Negative); Color Urine Yellow (Yellow); Glucose Urine UA Negative (Negative); Ketones Urine Trace mg/dL (Negative); Leukocyte Esterase Ur 3+ LEU/UL (Negative); Need Manual Microscopic Reviewed; Nitrate Urine Negative (Negative); Protein Urine 3+ mg/dL (Negative); Specific Grav Ur 1.014 (1.001-1.035); Squamous Epithelial Cell Urine None seen /hpf (Few); Urobilinogen Urine 0.2 mg/dL (<2.0); WBC Urine >100 /hpf
[2022-07-16 14:54] LABS: RBC Urine 51-75 /hpf (0-2)
[2022-07-16 14:55] LABS: Add Urine Microscopic? YES
[2022-07-16] MEDS: PANTOPRAZOLE SODIUM IV 40 MG VIAL 80 MG IV PUSH (15:19)
--- NOTE | 2022-07-16 15:53 | WPDGICN ---
Assessment and Plan Assessment and plan (1) Melena: Code(s): K92.1 - Melena Status: Acute Assessment and Plan: given the fact his stools are black and tarry when he became lightheaded I suspect upper gastrointestinal bleed. This is aggravated by the fact that he is anticoagulated. (2) Acute on chronic anemia: Code(s): D64.9 - Anemia, unspecified Status: Acute Assessment and Plan: His hemoglobin has been 9 recently but now is down to 8 and probably will trend lower with rehydration (3) CKD (chronic kidney disease), stage III: Qualifiers: Chronic kidney disease stage 3 subtype: stage 3b (GFR 30-44) Qualified Code(s): N18.32 - Chronic kidney disease, stage 3b Code(s): N18.30 - Chronic kidney disease, stage 3 unspecified Status: Acute Assessment and Plan: he has been on hemodialysis 3 times a week and is under the care of Dr. Haynes. BUN is 89 today versus 53 last month. (4) Obesity: Code(s): E66.9 - Obesity, unspecified Status: Acute (5) Atrial fibrillation: Code(s): I48.91 - Unspecified atrial fibrillation Status: Acute Assessment and Plan: He has been in atrial fibrillation chronically and takes Eliquis for that (6) Glomerulonephritis determined by biopsy: Code(s): N05.9 - Unspecified nephritic syndrome with unspecified morphologic changes Status: Acute Assessment and Plan: this is a new diagnosis of found on kidney biopsy last admission. He was started on IV cyclophosphamide and there is a plan for him to start additional chemotherapy. Plan Hold Eliquis liquid diet for now EGD when safe from the point of view of anticoagulation follow H&H transfuse as necessary GI Consult Note Consult date/time: 07/16/22 15:53 HPI: Arthur Cantor Jr. is a 81 year old male with multiple medical problems including recently diagnosed disease of the kidney, apparently an autoimmune disease which was termed microscopic polyangiitis, crescentic necrotizing pauci immune glomerulonephrosis . he has disabling arthritis which makes it difficult for him to get out of bed and move about. He has chronic kidney disease for which she is on hemodialysis. He has atrial fibrillation for which he takes Eliquis twice a day. He recently developed pneumonia and exacerbation of congestive heart failure for which was hospitalized. Last evening he developed black tarry stools along with being lightheaded and developing diaphoresis. This happened once again in the middle the night and a 3rd time this morning. He called his son, field recorder and was advised to come to the emergency room. He thought he might be bleeding because he did have a bleeding ulcer about 10 years ago. He does not take any anti-inflammatory medications such as ibuprofen or Aleve but is on tramadol which he uses p.r.n. but not daily because of the severe pain in his back and legs. Review of Systems Review of Systems: All systems reviewed & are unremarkable except as noted in HPI and below PMFSH Past Medical History Medical History Aortic stenosis, moderate Atrial fibrillation Atrial fibrillation CHF (congestive heart failure) DJD (degenerative joint disease) Dyspnea due to congestive heart failure Elevated lipids HLD (hyperlipidemia) HTN (hypertension) Hypertension Insomnia Insomnia Osteoarthritis Rheumatoid arthritis Surgical History Surgical History History of shoulder surgery History of total knee replacement History of total knee replacement Family History Family History Father Heart failure Father Family history of liver disease Diabetes mellitus Family history of kidney disease Mother Family history of diabetes mellitus in first degree relative Diabetes mellitus
--- NOTE | 2022-07-16 16:25 | ADMGEN ---
This patient, Arthur Cantor Jr., was admitted to Medical Room 250-01. Patient/family oriented to hospital policies and general routines including ID bracelet, bed and alarms, visiting hours, pain management, procedures, bathroom and other care routines, personal items, smoking policy, room service/diet, and visiting hours. Information on how to activate the Rapid Response Team has been discussed. Patient/Family are encouraged to report perceived risks to care and to ask questions if they do not understand what they are told or what they should do.
--- NOTE | 2022-07-16 16:26 | PM.CNNEP ---
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 -- this would argue in favor of microscopic polyangiitis s/p pulse dose steroids and on oral prednisone s/p IV cytoxan (on 06/10/22) and on oral cytoxan still making urine but BUN + creatinine rise inbetween HD treatments HD tomorrow and continue T/T/S schedule for now the hope is for possible renal recovery but gettting dialytic support until this occurs follow trend of repeat labs and UOP (to assess for potential renal recovery) (2) Chronic kidney disease, stage IV (severe): Code(s): N18.4 - Chronic kidney disease, stage 4 (severe) Status: Chronic Assessment and Plan: since 2019, creatinine has been running ~ 1.4 - 1.7mg/dl however, in July 2021, it increased to 1.93mg/dl then, in March 2022, it was 2.32mg/dl on discharge in early May 2022, it was 3.3mg/dl outpatient labs on 05/28/22, creatinine up to 4.4mg/dl probably has some underlying chronic kidney disease due to HTN, vascular disease/CHF, and age not clear when microscopic polyangiitis started ... renal biopsy did not show significant chronic disease (3) Melena: Code(s): K92.1 - Melena Status: Acute Assessment and Plan: follow serial H/Hs eliquis on hold Gastroenterology following on PPI Epogen with HD PRBC transfusion per protocol (4) UTI (urinary tract infection): Code(s): N39.0 - Urinary tract infection, site not specified Status: Acute Assessment and Plan: urinalysis suggestive follow blood and urine cultures on antibiotics (5) Hypertension: Code(s): I10 - Essential (primary) hypertension Status: Chronic Assessment and Plan: reasonable control at this time follow trend of hemodynamics (6) Atrial fibrillation: Code(s): I48.91 - Unspecified atrial fibrillation Status: Acute Assessment and Plan: rate control strategy on metoprolol holding anticoagulation due to #2 Will continue to follow. History of Present Illness Reason for Consult Consult date: 07/16/22 Reason for consult: acute renal failure (on dialysis) Chief Complaint Chief complaint: Melena History of Present Illness Narrative: The patient is an 81-year-old male with a past medical history as outlined below who presented to [facility] Emergency room for further evaluation of black tarry stools in association with lightheadedness. The patient had been in his usual state of health until a few days ago we started notice increasing fatigue in association with lightheadedness. It was around that same time that he started noticing that his stools became black. He has noted at least two episodes of melena in the past few days. Furthermore, he is noted increasing shortness of breath with exertional activity but has no breathing issues when he is at rest. Given his symptoms as well as the fact that he is on anticoagulation, he came to the ER for further assessment. Workup and evaluation in the emergency room demonstrated the patient be hemodynamically stable and his labs were significant for a hemoglobin hematocrit lower than his baseline in association with labs consistent with his chronic kidney disease. Given his symptomatology in conjunction with his laboratory abnormalities, Gastroenterology was consulted and the place and was subsequently admitted to the hospital for further evaluation and therapy including serial hemoglobins and hematocrits in association with a possible need for packed red blood cell transfusion. Renal consultation was requested due to his acute kidney injury on top of his baseline kidney disease now requiring renal placement therapy/dialysis. The isma
--- NOTE | 2022-07-16 16:26 | P.CONNP_ITS ---
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 * ?p-ANCA positive -- this would argue in favor of microscopic polyangiitis * s/p pulse dose steroids and on oral prednisone * s/p IV cytoxan (on 06/10/22) and on oral cytoxan * still making urine but BUN + creatinine rise inbetween HD treatments * HD tomorrow and continue T/T/S schedule for now * the hope is for possible renal recovery but gettting dialytic support until this occurs * follow trend of repeat labs and UOP (to assess for potential renal recovery) (2) Chronic kidney disease, stage IV (severe): Code(s): N18.4 - Chronic kidney disease, stage 4 (severe) Status: Chronic Assessment and Plan: * since 2019, creatinine has been running ~ 1.4 - 1.7mg/dl * however, in July 2021, it increased to 1.93mg/dl * then, in March 2022, it was 2.32mg/dl * on discharge in early May 2022, it was 3.3mg/dl * outpatient labs on 05/28/22, creatinine up to 4.4mg/dl * probably has some underlying chronic kidney disease due to HTN, vascular disease/CHF, and age * not clear when microscopic polyangiitis started ... * renal biopsy did not show significant chronic disease (3) Melena: Code(s): K92.1 - Melena Status: Acute Assessment and Plan: * follow serial H/Hs * eliquis on hold * Gastroenterology following * on PPI * Epogen with HD * PRBC transfusion per protocol (4) UTI (urinary tract infection): Code(s): N39.0 - Urinary tract infection, site not specified Status: Acute Assessment and Plan: * urinalysis suggestive * follow blood and urine cultures * on antibiotics (5) Hypertension: Code(s): I10 - Essential (primary) hypertension Status: Chronic Assessment and Plan: * reasonable control at this time * follow trend of hemodynamics (6) Atrial fibrillation: Code(s): I48.91 - Unspecified atrial fibrillation Status: Acute Assessment and Plan: * rate control strategy * on metoprolol * holding anticoagulation due to #2 Will continue to follow. History of Present Illness Reason for Consult Consult date: 07/16/22 Reason for consult: acute renal failure (on dialysis) Chief Complaint Chief complaint: Melena History of Present Illness Narrative: The patient is an 81-year-old male with a past medical history as outlined below who presented to [facility] Emergency room for further evaluation of black tarry stools in association with lightheadedness. The patient had been in his usual state of health until a few days ago we started notice increasing fatigue in association with lightheadedness. It was around that same time that he started noticing that his stools became black. He has noted at least two episodes of melena in the past few days. Furthermore, he is noted increasing shortness of breath with exertional activity but has no breathing issues when he is at rest. Given his symptoms as well as the fact that he is on anticoagulation, he came to the ER for further assessment. Workup and evaluation in the emergency room demonstrated the patient be hemodynamically stable and his labs were significant for a hemoglobin hematocrit lower than his baseline in association with labs consistent with his chronic kidney disease. Given his symptomatology in conjunction with his l
[2022-07-16 21:07] LABS: Glucose Point of Care 156 mg/dl (65-105)
--- NOTE | 2022-07-16 22:22 | PM.IMHP ---
H&P: HPI History of Present Illness Date/Time: 07/16/22 22:22 Chief Complaint: dizziness Narrative: this is an 81-year-old male who has end-stage renal disease on dialysis Tuesday. The patient is on Eliquis for AFib. He also has a history of hypertension and hyperlipidemia. The patient was discharged from here on 06/21/2022 After being treated for pneumonia. The patient had been doing well since the discharge until a couple days ago when he started to have some lightheadedness. The patient stated he had very black stools. He became more short of breath he could only walk 4 5 steps in in needed to stop and rest to regain his normal breathing. The patient did have dialysis on . Nephrology has been consulted. He does have chronic anemia due to his chronic renal failure however his H&H was 8.024.9 today and is typically 9.0 And 28.7. GI has also been consulted. The patient was also found have UTI was started on Rocephin. His white count was slightly elevated at 10.2. The patient is being admitted to observation date Of service 07/16/2022 Review of Systems Review of Systems: see HPI All systems reviewed & are unremarkable except as noted in HPI and below Constitutional: Constitutional: Reports as per HPI and Reports no additional constitutional complaints Eyes: Eyes: Reports as per HPI and Reports no additional eye complaints ENT: Reports system reviewed and no additional complaints, except as documented and Reports Normal hearing present Cardiovascular: Cardiovascular: Reports no additional cardiovascular complaints Respiratory: Respiratory: Reports no additional respiratory complaints and Reports no additional respiratory complaints Gastrointestinal: Gastrointestinal: Reports as per HPI and Reports no additional gastrointestinal complaints Musculoskeletal: Musculoskeletal: Reports no additional musculoskeletal complaints Integumentary/Breasts: Skin/Breast: Reports system reviewed and no additional complaints, except as docu and Reports as per HPI Neurologic: Reports system reviewed and no additional complaints, except as documented, Reports as per HPI and Reports Normal hearing present Psychiatric: Psychiatric: Reports no additional psychiatric complaints and Reports as per HPI Endocrine: Endocrine: Reports no additional endocrine complaints Hematologic/Lymphatic: Hematologic/Lymphatic: Reports no additional hematologic/lymphatic complaints Allergic/Immunologic: Allergic/Immunologic: Reports no additional allergic/immunologic complaints [facility] Past Medical History Medical History (Updated 07/17/22 @ 02:53 by Demi Fletcher NP) Aortic stenosis, moderate Atrial fibrillation Atrial fibrillation CHF (congestive heart failure) DJD (degenerative joint disease) Dyspnea due to congestive heart failure Elevated lipids History of DVT (deep vein thrombosis) HLD (hyperlipidemia) HTN (hypertension) Hypertension Insomnia Insomnia Osteoarthritis Rheumatoid arthritis Surgical History Surgical History (Updated 07/17/22 @ 02:37 by Demi Fletcher NP) History of shoulder surgery History of tonsillectomy and adenoidectomy History of total knee replacement History of total knee replacement Status post right rotator cuff repair Family History Family History Father Heart failure Father Family history of liver disease Diabetes mellitus Family history of kidney disease Mother Family history of diabetes mellitus in first degree relative Diabetes mellitus Family history of renal failure Other Family history of gout Hypertension Social History Social History (Updated 07/17/22 @ 02:40 by Demi Fletcher NP) Social History: the patient has been for many years and lives home alone. 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 He has 2 children code status full code Smoking packs per day: 0.5
[2022-07-17] VITALS (20 sets, daily range): BP systolic 108–136; BP diastolic 50–86; PULSE 57–98; RESP 16–20; TEMP 35.6–36.9; O2SAT 95–100
[2022-07-17 05:18] LABS: Basophils Percent Auto 0.1 % (0.2-1.2); Eosinophils Percent Auto 0.1 % (0-4.4); Hematocrit 23.4 % (42.0-52.0); Hemoglobin 7.6 g/dL (14.0-18.0); Immature Granulocyte Absolute 0.12 K/mm3 (0.00-0.031); Immature Granulocyte Percent A 1.4 % (0-0.5); Lymphocytes Absolute Auto 1.01 K/mm3 (0.9-3.2); Lymphocytes Percent Auto 11.9 % (18.3-44.2); Mean Corpuscular HGB Conc 32.5 g/dl (32-36); Mean Corpuscular Hemoglobin 31.3 pg (26-34); Mean Corpuscular Volume 96.3 fl (80-100); Mean Platelet Volume 10.3 fl (7.4-10.4); Monocytes Absolute Auto 0.6 K/mm3 (0.1-0.6); Monocytes Percent Auto 7.4 % (2.6-8.5); Neutrophils Absolute Auto 6.7 K/mm3 (1.3-6.7); Neutrophils Percent Auto 79.1 % (45.5-73.1); Nucleated Red Blood Cells Perc 0.4 % (0.0-0.2); Platelet Count Result 114 k/mm3 (150-375); Red Blood Count 2.43 M/mm3 (4.6-6.20); Red Cell Distribution Width 16.3 % (11.5-14.5); White Blood Count 8.5 K/mm3 (4.5-10.0)
[2022-07-17 05:36] LABS: Albumin Level 3.3 g/dL (3.5-5.1); Anion Gap 7 mmol/L (8-16); Blood Urea Nitrogen 99 mg/dL (9-20); Calcium 8.1 mg/dL (8.4-10.2); Carbon Dioxide 29 mmol/L (22-30); Chloride 93 mmol/L (98-107); Estimated CRCL calculation 19 ml/min; Estimated Glomerular Filt Rate 14; Glucose 74 mg/dL (65-110); Phosphorus 3.8 mg/dL (2.5-4.5); Potassium 4.6 mmol/L (3.4-5.0); Sodium 129 mmol/L (137-145)
[2022-07-17 05:37] LABS: Alanine Aminotransferase 24 U/L (6-50); Albumin Level 3.3 g/dL (3.5-5.1); Alkaline Phosphatase 31 U/L (38-126); Anion Gap 5 mmol/L (8-16); Aspartate Amino Transferase 23 U/L (17-59); Bilirubin,Total 0.5 mg/dL (0.2-1.3); Blood Urea Nitrogen 100 mg/dL (9-20); Calcium 8.1 mg/dL (8.4-10.2); Carbon Dioxide 29 mmol/L (22-30); Chloride 94 mmol/L (98-107); Estimated CRCL calculation 19 ml/min; Estimated Glomerular Filt Rate 15; Glucose 74 mg/dL (65-110); Magnesium 2.4 mg/dL (1.6-2.3); Potassium 4.6 mmol/L (3.4-5.0); Sodium 128 mmol/L (137-145)
[2022-07-17 05:41] LABS: Lactic Acid Reflex 1.1 mmol/L (0.7-2.0)
[2022-07-17 06:44] LABS: Hepatitis B Surface Antigen Negative (Negative)
[2022-07-17 07:01] LABS: Hepatitis B Surface Anti Res Negative
[2022-07-17] MEDS: predniSONE 5 MG TABLET 15 MG PO ×2 (08:38→18:14)
[2022-07-17] MEDS: PANTOPRAZOLE SODIUM IV 40 MG VIAL IV PUSH ×2 (08:39→20:35)
[2022-07-17 10:20] LABS: Hematocrit 23.4 % (42.0-52.0); Hemoglobin 7.4 g/dL (14.0-18.0)
--- NOTE | 2022-07-17 11:22 | WPDGIPROGNO ---
Progress Note: A&P Assessment and Plan (1) Melena: Code(s): K92.1 - Melena Status: Acute Assessment and Plan: given the fact his stools are black and tarry when he became lightheaded I suspect upper gastrointestinal bleed. This is aggravated by the fact that he is anticoagulated. No bowel movement during the night (2) Acute on chronic anemia: Code(s): D64.9 - Anemia, unspecified Status: Acute Assessment and Plan: His hemoglobin has been 9 recently but now is down to 8 and probably will trend lower with rehydration hemoglobin today is 7.4. (3) CKD (chronic kidney disease), stage III: Qualifiers: Chronic kidney disease stage 3 subtype: stage 3b (GFR 30-44) Qualified Code(s): N18.32 - Chronic kidney disease, stage 3b Code(s): N18.30 - Chronic kidney disease, stage 3 unspecified Status: Acute Assessment and Plan: he has been on hemodialysis 3 times a week and is under the care of Dr. Haynes. BUN is 89 today versus 53 last month. He has been seen by Nephrology. 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 He was started on IV cyclophosphamide and there is a plan for him to start additional chemotherapy. Plan Hold Eliquis liquid diet for now EGD when safe from the point of view of anticoagulation follow H&H transfuse as necessary Subjective Date/time seen: 07/17/22 11:22 Exam Const: General: alert and obese Nutritional Appearance: obese Orientation/consciousness: patient oriented x3 HENMT: Ears: hearing grossly impaired Resp: Auscultation: clear to auscultation bilaterally Cardio: Rhythm: regular rhythm GI: Inspection: obesity GI Palp: No abdominal tenderness, Yes Soft to palpation, Yes No hepatosplenomegaly present and No Hernia present Auscultation: normal bowel sounds Neuro: General: patient oriented x3 Objective Data Vital Signs Vital Signs: Vital Signs - 24 hr 07/16/22 11:35 07/16/22 13:05 07/16/22 15:22 Temperature 36.2 C L Pulse Rate 81 76 82 Respiratory Rate 18 16 18 Blood Pressure 108/74 134/92 H 136/96 H Pulse Oximetry 100 98 100 Oxygen Delivery Room Air 07/16/22 16:45 07/16/22 16:00 07/16/22 20:21 Temperature 37.0 C 36.4 C L Pulse Rate 78 76 92 Respiratory Rate 18 18 Blood Pressure 115/73 96/62 L Pulse Oximetry 99 100 Oxygen Delivery 07/16/22 20:00 07/16/22 20:00 07/17/22 00:00 Temperature Pulse Rate 89 76 Respiratory Rate Blood Pressure Pulse Oximetry Oxygen Delivery Room Air 07/17/22 04:00 07/17/22 05:52 07/17/22 08:30 Temperature 36.6 C Pulse Rate 79 78 Respiratory Rate 20 Blood Pressure 112/77 Pulse Oximetry 97 Oxygen Delivery Room Air Intake/Output Intake/Output: Intake & Output 07/14/22 07/15/22 07/16/22 07/17/22 23:59 23:59 23:59 23:59 Intake Total 50 360 Output Total 0 300 Balance 50 60 Meds/Results Medications: Active Medications Generic Name Dose Route Start Last Admin Trade Name Freq PRN Reason Stop Dose Admin Cyclophosphamide 100 mg 07/17/22 09:00 Cyclophosphamide (*Bkc) 50 Mg Tablet PO DAILY ROBERT Epoetin Santiago-epbx 20,000 units 07/17/22 21:29 Epoetin Santiago-Epbx 20,000 Units/Ml Vial IV PUSH 07/17/22 21:30 ONCE ONE Furosemide 40 mg 07/17/22 09:00 Furosemide 40 Mg Tablet PO DAILY ROBERT Ceftriaxone Sodium 1 gm in 50 mls @ 100
--- NOTE | 2022-07-17 13:17 | PM.IMPN ---
Progress Note: A&P Assessment and Plan (1) Melena: Code(s): K92.1 - Melena Status: Acute Assessment and Plan: the patient stated that he was having black stools. The patient is on Eliquis which is now on hold. - GI has been consulted continue with IV Protonix. Check stool for occult blood check H and H every 6 hours type and crossmatch and transfuse as needed 07/17/2022 interval history: 81-year-old male with history of end-stage renal disease on hemodialysis presented with complaint of dizziness and black tarry stool concerning for upper GI bleeding however his hemoglobin was 8 upon arrival, and it is trending down to 7.4, will continue to monitor, patient is seen by GI recommending EGD to further evaluate she is scheduled for tomorrow, patient will have a scheduled dialysis. (2) UTI (urinary tract infection): Code(s): N39.0 - Urinary tract infection, site not specified Status: Acute Assessment and Plan: continue with Rocephin blood and urine cultures are pending tailor antibiotics according to cultures and sensitivities (3) ESRD (end stage renal disease) on dialysis: Code(s): N18.6 - End stage renal disease; Z99.2 - Dependence on renal dialysis Status: Acute Assessment and Plan: the patient has dialysis on Tuesday. The patient is compliant with treatment and stated that his last treatment was on Nephrology has been consulted. Patient will have dialysis on Tuesday. 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 The patient does have a history of chronic anemia most likely due to end-stage renal disease type and cross match transfuse as necessary (6) Congestive heart failure: Code(s): I50.9 - Heart failure, unspecified Status: Acute Assessment and Plan: continue with Lasix and metoprolol echo from 05/19/2021 was read 1. Complete two-dimensional, color flow and Doppler transthoracic echocardiogram is performed. ? 2. Left ventricular chamber dimension is normal. ? 3. Left ventricular systolic function is preserved, estimated at 50-55%. ? 4. There is mildly increased left ventricular wall thickness. ? 5. Left ventricular septal wall motion is abnormal with septal motion related to bundle branch block. ? 6. The left ventricular diastolic function is abnormal. ? 7. e' .09 is abnormal suggests diastolic dysfunction. ? 8. Atrial fibrillation. ? 9. Right ventricular systolic function is mildly reduced and with abnormal TAPSE 1.4 cm. ? 10. Left atrial chamber dimension is moderately enlarged. ? 11. Right atrial chamber dimension is moderately enlarged. ? 12. There is severe aortic valve sclerosis. ? 13. There is moderate aortic valve stenosis with a peak velocity of 244 cm/s, mean gradient of 14 mmHg, and aortic valve area of 1.3 cm2. ? 14. There is trace mitral valve regurgitation. ? 15. No pulmonary hypertension, estimated pulmonary arterial systolic pressure is 30 mmHg. ? 16. Dilated inferior vena cava with >50% collapse upon inspiration consistent with elevated right atrial pressure, 10
--- NOTE | 2022-07-17 13:45 | PC.NURSE ---
pt to dialysis via bed
[2022-07-17] MEDS: EPOETIN ALFA-EPBX 20,000 UNITS/ML VIAL 20000 UNITS IV PUSH (14:11)
[2022-07-17] MEDS: SODIUM CHLORIDE 0.9% IV 1,000 ML 999 ML IV CONT (14:12)
--- NOTE | 2022-07-17 14:15 | P.PNNP_ITS ---
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 in favor of microscopic polyangiitis * s/p pulse dose steroids and on oral prednisone * s/p IV cytoxan (on 06/10/22) and on oral cytoxan * still making urine but BUN + creatinine rise inbetween HD treatments * HD today and continue T/T/S schedule for now * the hope is for possible renal recovery but gettting dialytic support until this occurs * follow trend of repeat labs and UOP (to assess for potential renal recovery) (2) Chronic kidney disease, stage IV (severe): Code(s): N18.4 - Chronic kidney disease, stage 4 (severe) Status: Chronic Assessment and Plan: * since 2019, creatinine has been running ~ 1.4 - 1.7mg/dl * however, in July 2021, it increased to 1.93mg/dl * then, in March 2022, it was 2.32mg/dl * on discharge in early May 2022, it was 3.3mg/dl * outpatient labs on 05/28/22, creatinine up to 4.4mg/dl * probably has some underlying chronic kidney disease due to HTN, vascular disease/CHF, and age * not clear when microscopic polyangiitis started ... * renal biopsy did not show significant chronic disease (3) Melena: Code(s): K92.1 - Melena Status: Acute Assessment and Plan: * follow serial H/Hs * eliquis on hold * Gastroenterology following * on PPI * Epogen with HD * PRBC transfusion per protocol (4) UTI (urinary tract infection): Code(s): N39.0 - Urinary tract infection, site not specified Status: Acute Assessment and Plan: * urinalysis suggestive * follow blood and urine cultures * on antibiotics (5) Hypertension: Code(s): I10 - Essential (primary) hypertension Status: Chronic Assessment and Plan: * reasonable control at this time * follow trend of hemodynamics (6) Atrial fibrillation: Code(s): I48.91 - Unspecified atrial fibrillation Status: Acute Assessment and Plan: * rate control strategy * on metoprolol * holding anticoagulation due to #3 Will continue to follow. Subjective Date/time seen: 07/17/22 14:15 Tolerating dialysis treatment at the time of my visit (seen on HD at ~ 2:05PM); H/H has been slowly declining since admission; no other acute issues/complaints voiced currently; possible EGD tomorrow (?) per patient. Exam Narrative: General: WD/WN elderly male in NAD Heart: normal S1 and S2; no rub Lungs: clear anteriorly and coarse at bases Abdomen: soft, nontender, nondistended, positive bowel sounds Extremities: no significant edema Skin: warm and dry Objective Data Vital Signs Vital Signs: Vital Signs Temp Pulse Resp BP Pulse Ox O2 Del Method 07/17/22 14:10 64 135/79 07/17/22 13:50 79 121/83 07/17/22 13:40 97.9 F 81 18 121/73 07/17/22 13:30 98.4 F 79 18 108/63 96 07/17/22 08:30 Room Air 07/17/22 05:52 97.8 F 78 20 112/77 97 07/17/22 04:00 79 07/17/22 00:00 76 07/16/22 20:00 89 07/16/22 20:00 Room Air 07/16/22 20:21 97.5 F L 92 18 96/62 L 100
--- NOTE | 2022-07-17 14:15 | PM.PNNEP ---
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 -- this would argue in favor of microscopic polyangiitis s/p pulse dose steroids and on oral prednisone s/p IV cytoxan (on 06/10/22) and on oral cytoxan still making urine but BUN + creatinine rise inbetween HD treatments HD today and continue T/T/S schedule for now the hope is for possible renal recovery but gettting dialytic support until this occurs follow trend of repeat labs and UOP (to assess for potential renal recovery) (2) Chronic kidney disease, stage IV (severe): Code(s): N18.4 - Chronic kidney disease, stage 4 (severe) Status: Chronic Assessment and Plan: since 2019, creatinine has been running ~ 1.4 - 1.7mg/dl however, in July 2021, it increased to 1.93mg/dl then, in March 2022, it was 2.32mg/dl on discharge in early May 2022, it was 3.3mg/dl outpatient labs on 05/28/22, creatinine up to 4.4mg/dl probably has some underlying chronic kidney disease due to HTN, vascular disease/CHF, and age not clear when microscopic polyangiitis started ... renal biopsy did not show significant chronic disease (3) Melena: Code(s): K92.1 - Melena Status: Acute Assessment and Plan: follow serial H/Hs eliquis on hold Gastroenterology following on PPI Epogen with HD PRBC transfusion per protocol (4) UTI (urinary tract infection): Code(s): N39.0 - Urinary tract infection, site not specified Status: Acute Assessment and Plan: urinalysis suggestive follow blood and urine cultures on antibiotics (5) Hypertension: Code(s): I10 - Essential (primary) hypertension Status: Chronic Assessment and Plan: reasonable control at this time follow trend of hemodynamics (6) Atrial fibrillation: Code(s): I48.91 - Unspecified atrial fibrillation Status: Acute Assessment and Plan: rate control strategy on metoprolol holding anticoagulation due to #3 Will continue to follow. Subjective Date/time seen: 07/17/22 14:15 Tolerating dialysis treatment at the time of my visit (seen on HD at ~ 2:05PM); H/H has been slowly declining since admission; no other acute issues/complaints voiced currently; possible EGD tomorrow (?) per patient. Exam Narrative: General: WD/WN elderly male in NAD Heart: normal S1 and S2; no rub Lungs: clear anteriorly and coarse at bases Abdomen: soft, nontender, nondistended, positive bowel sounds Extremities: no significant edema Skin: warm and dry Objective Data Vital Signs Vital Signs: Vital Signs Temp Pulse Resp BP Pulse Ox O2 Del Method 07/17/22 14:10 64 135/79 07/17/22 13:50 79 121/83 07/17/22 13:40 97.9 F 81 18 121/73 07/17/22 13:30 98.4 F 79 18 108/63 96 07/17/22 08:30 Room Air 07/17/22 05:52 97.8 F 78 20 112/77 97 07/17/22 04:00 79 07/17/22 00:00 76 07/16/22 20:00 89 07/16/22 20:00 Room Air 07/16/22 20:21 97.5 F L 92 18 96/62 L 100 Intake/Output Intake/Output: Intake & Output 07/14/22 07/15/22 07/16/22 07/17/22 23:59 23:59 23:59 23:59 Intake Total 50 770 Output Total 0 750 Balance 50 20 Meds/Results Medications: Active Medications Generic Name Dose Route Start Last Admin Trade Name Randy PRN Reason Stop Dose Admin Cyclophosphamide 100 mg 07/17/22 09:00 Cyclophosphamide (*Bkc) 50 Mg Tablet PO DAILY ROBERT Epoetin Santiago-epbx 20,000 units 07/17/22 21:29 07/17/22 14:11 Epoetin Santiago-Epbx 20,000 Units/Ml Vial IV PUSH 07/17/22 21:30 20,000 units ONCE ONE Administration Furosemide 40 mg 07/17/22 09:00 Furosemide 40 Mg Tablet PO DAILY ROBERT
--- NOTE | 2022-07-17 17:50 | PC.NURSE ---
pt returned from dialysis,doing well resting comfortably
[2022-07-17] MEDS: FUROSEMIDE 40 MG TABLET PO (18:15)
[2022-07-17 19:32] LABS: Hematocrit 21.9 % (42.0-52.0)
[2022-07-17] MEDS: METOPROLOL TARTRATE 50 MG TAB BY MOUTH (20:32)
[2022-07-18] VITALS (15 sets, daily range): BP systolic 91–135; BP diastolic 60–83; PULSE 69–83; RESP 12–21; TEMP 36.4–36.6; O2SAT 98–100
[2022-07-18 05:06] LABS: Basophils Percent Auto 0.2 % (0.2-1.2); Hematocrit 23.3 % (42.0-52.0); Hemoglobin 7.3 g/dL (14.0-18.0); Immature Granulocyte Percent A 1.5 % (0-0.5); Lymphocytes Absolute Auto 0.31 K/mm3 (0.9-3.2); Lymphocytes Percent Auto 4.7 % (18.3-44.2); Mean Corpuscular HGB Conc 31.3 g/dl (32-36); Mean Corpuscular Hemoglobin 31.2 pg (26-34); Mean Corpuscular Volume 99.6 fl (80-100); Mean Platelet Volume 10.1 fl (7.4-10.4); Monocytes Absolute Auto 0.5 K/mm3 (0.1-0.6); Monocytes Percent Auto 7.5 % (2.6-8.5); Neutrophils Absolute Auto 5.6 K/mm3 (1.3-6.7); Neutrophils Percent Auto 86.1 % (45.5-73.1); Nucleated Red Blood Cells Absolute Auto 0.1 K/mm3 (0.0-0.012); Nucleated Red Blood Cells Perc 1.2 % (0.0-0.2); Platelet Count Result 108 k/mm3 (150-375); Red Blood Count 2.34 M/mm3 (4.6-6.20); Red Cell Distribution Width 16.8 % (11.5-14.5); White Blood Count 6.6 K/mm3 (4.5-10.0)
[2022-07-18 05:20] LABS: Albumin Level 3.2 g/dL (3.5-5.1); Anion Gap 1 mmol/L (8-16); Blood Urea Nitrogen 42 mg/dL (9-20); Calcium 8.1 mg/dL (8.4-10.2); Carbon Dioxide 30 mmol/L (22-30); Chloride 103 mmol/L (98-107); Estimated CRCL calculation 27 ml/min; Estimated Glomerular Filt Rate 22; Glucose 97 mg/dL (65-110); Phosphorus 3.7 mg/dL (2.5-4.5); Potassium 4.6 mmol/L (3.4-5.0); Sodium 134 mmol/L (137-145)
[2022-07-18] MEDS: SODIUM CHLORIDE 0.9% IV 500 ML 10 ML IV CONT (07:27)
[2022-07-18] MEDS: BENZOCAINE (*SP) 60 ML SPRAY CAN (HURRICAINE) 1 SPRAY MUCOUS MEM (07:42)
--- NOTE | 2022-07-18 07:50 | WPDANESEPPF ---
Anes - Initial Pre Proc Eval Procedure: Operation Date: 07/18/22 07:30 Proposed Procedures p Esophagogastroduodenoscopy EGD - Travon Sadler MD Date/Time: 07/18/22 07:50 Surgeon: Phyllis Henley MD Pre Op Diagnosis: Melena Patient Data Age: 81 Gender: M Height: 1.83 m Weight: 131 kg Last Vital Signs Temp 36.6 C 07/18/22 05:29 Pulse 70 07/18/22 07:22 Resp 18 07/18/22 07:22 BP 135/80 07/18/22 07:22 Pulse Ox 100 07/18/22 07:22 O2 Del Method Room Air 07/18/22 07:22 Allergies Allergy/AdvReac Type Severity Reaction Status Date / Time camphor [From Biofreeze] Allergy Intermediate Hives Verified 07/18/22 07:19 menthol [From Biofreeze] Allergy Intermediate Hives Verified 07/18/22 07:19 Home Medications Medication Instructions Recorded Confirmed Type Centrum Men 1 cap PO DAILY 05/16/22 07/16/22 History [place] 3 Fish Oil 1 cap PO DAILY 05/16/22 07/16/22 History Probiotic Blend 1 cap PO DAILY 05/16/22 07/16/22 History furosemide 40 mg tablet 40 mg PO DAILY #30 tabs 05/20/22 07/16/22 Rx apixaban 2.5 mg tablet (Eliquis) 2.5 mg PO Q12HR #60 tabs 06/21/22 07/16/22 Rx cyclophosphamide 50 mg capsule 100 mg PO DAILY #60 caps 06/21/22 07/16/22 Rx prednisone 20 mg tablet 20 mg PO BID #60 tabs 06/21/22 07/16/22 Rx famotidine 20 mg tablet 20 mg PO BID #60 tabs 06/22/22 07/16/22 Rx tramadol 50 mg tablet 50 mg PO Q6H PRN pain #90 tabs 07/07/22 07/16/22 Rx blood pressure monitor #1 ea 07/16/22 07/16/22 Rx metoprolol tartrate 50 mg tablet See Rx Instructions .Route .COMPLEX 07/16/22 07/16/22 History Laboratory Tests 07/17/22 07/17/22 07/18/22 10:12 19:24 04:50 WBC 6.6 K/mm3 K/mm3 (4.5-10.0) RBC 2.34 M/mm3 L M/mm3 (4.6-6.20) Hgb 7.4 g/dL L g/dL 7.0 g/dL L g/dL 7.3 g/dL L g/dL (14.0-18.0) (14.0-18.0) (14.0-18.0) Hct 23.4 % L % 21.9 % L % 23.3 % L % (42.0-52.0) (42.0-52.0) (42.0-52.0) MCV 99.6 fl fl (80-100) MCH 31.2 pg pg (26-34) MCHC 31.3 g/dl L g/dl (32-36) RDW 16.8 % H % (11.5-14.5) Plt Count 108 k/mm3 L k/mm3 (150-375) MPV 10.1 fl fl (7.4-10.4) Immature Gran % (Auto) 1.5 % H % (0-0.5) Neut % (Auto) 86.1 % H % (45.5-73.1) Lymph % (Auto) 4.7 % L % (18.3-44.2) [place] % (Auto) 7.5 % % (2.6-8.5) Eos % (Auto) 0.0 % % (0-4.4) Baso % (Auto) 0.2 % % (0.2-1.2) Lymph # (Auto) 0.31 K/mm3 L K/mm3 (0.9-3.2) [place] # (Auto) 0.5 K/mm3 K/mm3 (0.1-0.6) Eos # (Auto) 0.0 K/mm3 K/mm3 (0-0.3) Baso # (Auto) 0.0 K/mm3 K/mm3 (0.0-0.1) Abs Immat Gran (auto) 0.10 K/mm3 H K/mm3 (0.00-0.031) Absolute Neuts (auto) 5.6 K/mm3 K/mm3 (1.3-6.7) Absolute Nucleated RBC 0.1 K/mm3 H K/mm3 (0.0-0.012) Nucleated RBC % 1.2 % H % (0.0-0.2) Sodium Potassium Chloride Carbon Dioxide Anion Gap BUN Creatinine Estim Creat Clear Calc Estimated GFR Glucose Calcium Phosphorus Albumin 07/18/22 04:50 WBC RBC Hgb Hct MCV MCH MCHC RDW Plt Count MPV Immature Gran % (Auto) Neut % (Auto) Lymph % (Auto) [place] % (Auto) Eos % (Auto) Baso % (Auto) Lymph # (Auto) [place] # (Auto) Eos # (Auto) Baso # (Auto) Abs Immat Gran (auto) Absolute Neuts (auto) Absolute Nucleated RBC Nucleated RBC % Sodium 134 mmol/L L mmol/L (137-145) Potassium 4.6 mmol/L mmol/L (3.4-5.0) Chloride 103 mmol/L mmol/L (98-107) Carbon Dioxide 30 mmol/L mmol/L (22-30) Anion Gap 1 mmol/L L mmol/L (8-16) BUN 42 mg/dL H D mg/dL (9-20) Creatinine 2.80 mg/dL H mg/dL
[2022-07-18] MEDS: EPINEPHrine INJ 1 MG/10 ML SYRINGE XX (08:10)
[2022-07-18] MEDS: PANTOPRAZOLE SODIUM IV 40 MG VIAL IV PUSH ×2 (09:28→20:39)
[2022-07-18] MEDS: METOPROLOL TARTRATE 50 MG TAB BY MOUTH ×2 (09:28→20:37)
[2022-07-18] MEDS: FUROSEMIDE 40 MG TABLET PO (09:28)
[2022-07-18] MEDS: predniSONE 5 MG TABLET 15 MG PO ×2 (09:28→16:45)
--- NOTE | 2022-07-18 12:48 | PM.IMPN ---
Progress Note: A&P Assessment and Plan (1) Melena: Code(s): K92.1 - Melena Status: Acute Assessment and Plan: the patient stated that he was having black stools. The patient is on Eliquis which is now on hold. - GI has been consulted continue with IV Protonix. Check stool for occult blood check H and H every 6 hours type and crossmatch and transfuse as needed 07/18/2022 interval history: 81-year-old male with history of end-stage renal disease on hemodialysis presented with complaint of dizziness and black tarry stool concerning for upper GI bleeding however his hemoglobin was 8 upon arrival, and it is trending down to 7.4, today patient was seen by GI and patient had a EGD showed patient has a gastric ulcer, will continue Protonix IV b.i.d., most likely secondary to pain medication patient had been taking on empty stomach, will continue to monitor, patient will have a scheduled dialysis. will continue to monitor (2) UTI (urinary tract infection): Code(s): N39.0 - Urinary tract infection, site not specified Status: Acute Assessment and Plan: continue with Rocephin blood and urine cultures are pending tailor antibiotics according to cultures and sensitivities (3) ESRD (end stage renal disease) on dialysis: Code(s): N18.6 - End stage renal disease; Z99.2 - Dependence on renal dialysis Status: Acute Assessment and Plan: the patient has dialysis on Tuesday. The patient is compliant with treatment and stated that his last treatment was on Nephrology has been consulted. Patient will have dialysis on Tuesday. 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 The patient does have a history of chronic anemia most likely due to end-stage renal disease type and cross match transfuse as necessary (6) Congestive heart failure: Code(s): I50.9 - Heart failure, unspecified Status: Acute Assessment and Plan: continue with Lasix and metoprolol echo from 05/19/2021 was read 1. Complete two-dimensional, color flow and Doppler transthoracic echocardiogram is performed. ? 2. Left ventricular chamber dimension is normal. ? 3. Left ventricular systolic function is preserved, estimated at 50-55%. ? 4. There is mildly increased left ventricular wall thickness. ? 5. Left ventricular septal wall motion is abnormal with septal motion related to bundle branch block. ? 6. The left ventricular diastolic function is abnormal. ? 7. e' .09 is abnormal suggests diastolic dysfunction. ? 8. Atrial fibrillation. ? 9. Right ventricular systolic function is mildly reduced and with abnormal TAPSE 1.4 cm. ? 10. Left atrial chamber dimension is moderately enlarged. ? 11. Right atrial chamber dimension is moderately enlarged. ? 12. There is severe aortic valve sclerosis. ? 13. There is moderate aortic valve stenosis with a peak velocity of 244 cm/s, mean gradient of 14 mmHg, and aortic valve area of 1.3 cm2. ? 14. There is trace mitral valve regurgitation. ? 15. No pulmonary hypertension, estimated pulmonary arterial systolic
--- NOTE | 2022-07-18 13:01 | P.PNNP_ITS ---
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 in favor of microscopic polyangiitis * s/p pulse dose steroids and on oral prednisone * s/p IV cytoxan (on 06/10/22) and on oral cytoxan * still making urine but BUN + creatinine rise inbetween HD treatments * HD today and continue T/T/S schedule for now * the hope is for possible renal recovery but gettting dialytic support until this occurs * follow trend of repeat labs and UOP (to assess for potential renal recovery) (2) Chronic kidney disease, stage IV (severe): Code(s): N18.4 - Chronic kidney disease, stage 4 (severe) Status: Chronic Assessment and Plan: * since 2019, creatinine has been running ~ 1.4 - 1.7mg/dl * however, in July 2021, it increased to 1.93mg/dl * then, in March 2022, it was 2.32mg/dl * on discharge in early May 2022, it was 3.3mg/dl * outpatient labs on 05/28/22, creatinine up to 4.4mg/dl * probably has some underlying chronic kidney disease due to HTN, vascular disease/CHF, and age * not clear when microscopic polyangiitis started ... * renal biopsy did not show significant chronic disease (3) Melena: Code(s): K92.1 - Melena Status: Acute Assessment and Plan: * s/p EGD today with apparent finding of gastric ulcer * follow serial H/Hs * eliquis on hold * Gastroenterology following * on PPI * Epogen with HD * PRBC transfusion per protocol (4) UTI (urinary tract infection): Code(s): N39.0 - Urinary tract infection, site not specified Status: Acute Assessment and Plan: * urinalysis suggestive * however, blood and urine cultures negative to date * on antibiotics (5) Hypertension: Code(s): I10 - Essential (primary) hypertension Status: Chronic Assessment and Plan: * reasonable control at this time * follow trend of hemodynamics (6) Atrial fibrillation: Code(s): I48.91 - Unspecified atrial fibrillation Status: Acute Assessment and Plan: * rate control strategy * on metoprolol * holding anticoagulation due to #3 Will continue to follow. Subjective Date/time seen: 07/18/22 13:01 Tolerated dialysis treatment yesterday without any issue or problems; s/p EGD earlier today with apparent finding of gastric ulcer per patient (procedure report pending); no other apparent issues/events overight or earlier this AM; no apparent distress noted. Exam Narrative: General: WD/WN elderly male in NAD Heart: normal S1 and S2; no rub Lungs: clear anteriorly and coarse at bases Abdomen: soft, nontender, nondistended, positive bowel sounds Extremities: no significant edema Skin: warm and intact Objective Data Vital Signs Vital Signs: Vital Signs Temp Pulse Resp BP Pulse Ox O2 Del Method 07/18/22 12:00 79 07/18/22 08:00 80 07/18/22 09:33 98 Room Air 07/18/22 09:28 80 07/18/22 08:10 83 12 122/69 100 Room Air 07/18/22 08:00 76 12 128/76 100 Room Air 07/18/22 07:50 73 18 131/83 100 Room Air 07/18/22 07:22 70 18 135/80 100 Room Air
--- NOTE | 2022-07-18 13:01 | PM.PNNEP ---
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 -- this would argue in favor of microscopic polyangiitis s/p pulse dose steroids and on oral prednisone s/p IV cytoxan (on 06/10/22) and on oral cytoxan still making urine but BUN + creatinine rise inbetween HD treatments HD today and continue T/T/S schedule for now the hope is for possible renal recovery but gettting dialytic support until this occurs follow trend of repeat labs and UOP (to assess for potential renal recovery) (2) Chronic kidney disease, stage IV (severe): Code(s): N18.4 - Chronic kidney disease, stage 4 (severe) Status: Chronic Assessment and Plan: since 2019, creatinine has been running ~ 1.4 - 1.7mg/dl however, in July 2021, it increased to 1.93mg/dl then, in March 2022, it was 2.32mg/dl on discharge in early May 2022, it was 3.3mg/dl outpatient labs on 05/28/22, creatinine up to 4.4mg/dl probably has some underlying chronic kidney disease due to HTN, vascular disease/CHF, and age not clear when microscopic polyangiitis started ... renal biopsy did not show significant chronic disease (3) Melena: Code(s): K92.1 - Melena Status: Acute Assessment and Plan: s/p EGD today with apparent finding of gastric ulcer follow serial H/Hs eliquis on hold Gastroenterology following on PPI Epogen with HD PRBC transfusion per protocol (4) UTI (urinary tract infection): Code(s): N39.0 - Urinary tract infection, site not specified Status: Acute Assessment and Plan: urinalysis suggestive however, blood and urine cultures negative to date on antibiotics (5) Hypertension: Code(s): I10 - Essential (primary) hypertension Status: Chronic Assessment and Plan: reasonable control at this time follow trend of hemodynamics (6) Atrial fibrillation: Code(s): I48.91 - Unspecified atrial fibrillation Status: Acute Assessment and Plan: rate control strategy on metoprolol holding anticoagulation due to #3 Will continue to follow. Subjective Date/time seen: 07/18/22 13:01 Tolerated dialysis treatment yesterday without any issue or problems; s/p EGD earlier today with apparent finding of gastric ulcer per patient (procedure report pending); no other apparent issues/events overight or earlier this AM; no apparent distress noted. Exam Narrative: General: WD/WN elderly male in NAD Heart: normal S1 and S2; no rub Lungs: clear anteriorly and coarse at bases Abdomen: soft, nontender, nondistended, positive bowel sounds Extremities: no significant edema Skin: warm and intact Objective Data Vital Signs Vital Signs: Vital Signs Temp Pulse Resp BP Pulse Ox O2 Del Method 07/18/22 12:00 79 07/18/22 08:00 80 07/18/22 09:33 98 Room Air 07/18/22 09:28 80 07/18/22 08:10 83 12 122/69 100 Room Air 07/18/22 08:00 76 12 128/76 100 Room Air 07/18/22 07:50 73 18 131/83 100 Room Air 07/18/22 07:22 70 18 135/80 100 Room Air 07/18/22 05:29 98 F 81 20 91/60 L 98 07/18/22 04:00 74 07/18/22 00:00 72 07/17/22 20:00 95 Room Air 07/17/22 20:00 79 07/17/22 20:32 93 07/17/22 20:15 97.9 F 80 20 115/50 L 100 07/17/22 17:38 97.8 F 77 16 136/60 07/17/22 17:21 66 133/67 07/17/22 17:00 79 128/75 07/17/22 16:40 57 L 117/69 07/17/22 16:00 92 07/17/22 16:20 63 132/73 07/17/22 16:00 98 120/86 07/17/22 15:40 68 110/67 07/17/22 15:20 65 114/67 07/17/22 15:00 66 117/72 Intake/Output Intake/Output: Intake & Output 07/15/22 07/16/22 03
[2022-07-18 18:49] LABS: IFOB Positive Control Positive; Immunochemical Fecal Occult Bl Positive (N)
[2022-07-19] VITALS (13 sets, daily range): BP systolic 93–108; BP diastolic 60–74; PULSE 18–95; RESP 18–74; TEMP 36.2–36.9; O2SAT 97–100
[2022-07-19 05:20] LABS: Basophils Percent Auto 0.2 % (0.2-1.2); Hematocrit 23.4 % (42.0-52.0); Hemoglobin 7.3 g/dL (14.0-18.0); Immature Granulocyte Absolute 0.07 K/mm3 (0.00-0.031); Immature Granulocyte Percent A 1.1 % (0-0.5); Lymphocytes Absolute Auto 0.45 K/mm3 (0.9-3.2); Lymphocytes Percent Auto 7.3 % (18.3-44.2); Mean Corpuscular HGB Conc 31.2 g/dl (32-36); Mean Corpuscular Hemoglobin 31.9 pg (26-34); Mean Corpuscular Volume 102.2 fl (80-100); Mean Platelet Volume 9.9 fl (7.4-10.4); Monocytes Absolute Auto 0.5 K/mm3 (0.1-0.6); Monocytes Percent Auto 8.8 % (2.6-8.5); Neutrophils Absolute Auto 5.1 K/mm3 (1.3-6.7); Neutrophils Percent Auto 82.6 % (45.5-73.1); Nucleated Red Blood Cells Absolute Auto 0.1 K/mm3 (0.0-0.012); Nucleated Red Blood Cells Perc 1.6 % (0.0-0.2); Platelet Count Result 110 k/mm3 (150-375); Red Blood Count 2.29 M/mm3 (4.6-6.20); Red Cell Distribution Width 17.4 % (11.5-14.5); White Blood Count 6.2 K/mm3 (4.5-10.0)
[2022-07-19 05:29] LABS: Albumin Level 3.2 g/dL (3.5-5.1); Anion Gap 3 mmol/L (8-16); Blood Urea Nitrogen 52 mg/dL (9-20); Calcium 8.3 mg/dL (8.4-10.2); Carbon Dioxide 28 mmol/L (22-30); Chloride 102 mmol/L (98-107); Estimated CRCL calculation 21 ml/min; Estimated Glomerular Filt Rate 16; Glucose 92 mg/dL (65-110); Phosphorus 3.8 mg/dL (2.5-4.5); Potassium 5.2 mmol/L (3.4-5.0); Sodium 133 mmol/L (137-145)
[2022-07-19 08:17] LABS: Magnesium 2.2 mg/dL (1.6-2.3)
--- NOTE | 2022-07-19 08:22 | P.PNAN_ITS ---
Anes - Prog Note Post-Op Date/Time: 07/19/22 08:22 Vital Signs: Last Vital Signs Temp 36.2 C L 07/19/22 06:22 Pulse 74 07/19/22 06:22 Resp 22 H 07/19/22 06:22 BP 103/66 07/19/22 06:22 Pulse Ox 100 07/19/22 06:22 O2 Del Method Room Air 07/18/22 09:33 Pain Score (VAS): 0 I/O: Intake & Output 07/18/22 07/19/22 07/19/22 23:59 07:59 15:59 Intake Total 480 600 Balance 480 600 Laboratory Tests 07/19/22 05:11 07/19/22 05:11 07/18/22 07/19/22 07/19/22 18:17 05:07 05:11 WBC 6.2 RBC 2.29 L Hgb 7.3 L Hct 23.4 L MCV 102.2 H MCH 31.9 MCHC 31.2 L RDW 17.4 H Plt Count 110 L MPV 9.9 Immature Gran % (Auto) 1.1 H Neut % (Auto) 82.6 H Lymph % (Auto) 7.3 L Winkler % (Auto) 8.8 H Eos % (Auto) 0.0 Baso % (Auto) 0.2 Lymph # (Auto) 0.45 L Winkler # (Auto) 0.5 Eos # (Auto) 0.0 Baso # (Auto) 0.0 Abs Immat Gran (auto) 0.07 H Absolute Neuts (auto) 5.1 Absolute Nucleated RBC 0.1 H Nucleated RBC % 1.6 H Sodium Potassium Chloride Carbon Dioxide Anion Gap BUN Creatinine Estim Creat Clear Calc Estimated GFR Glucose Calcium Phosphorus Magnesium 2.2 Albumin Stl Occult Blood (IFOB) Positive H 07/19/22 05:11 WBC RBC Hgb Hct MCV MCH MCHC RDW Plt Count MPV Immature Gran % (Auto) Neut % (Auto) Lymph % (Auto) Winkler % (Auto) Eos % (Auto) Baso % (Auto) Lymph # (Auto) Winkler # (Auto) Eos # (Auto) Baso # (Auto) Abs Immat Gran (auto) Absolute Neuts (auto) Absolute Nucleated RBC Nucleated RBC % Sodium 133 L Potassium 5.2 H Chloride 102 Carbon Dioxide 28 Anion Gap 3 L BUN 52 H D Creatinine 3.60 H Estim Creat Clear Calc 21 Estimated GFR 16 L Glucose 92 Calcium 8.3 L Phosphorus 3.8 Magnesium Albumin 3.2 L Stl Occult Blood (IFOB) Patient Feedback: Patient satisfied with anesthetic care.
[2022-07-19] MEDS: FUROSEMIDE 40 MG TABLET PO (08:45)
[2022-07-19] MEDS: predniSONE 5 MG TABLET 15 MG PO ×2 (08:45→16:59)
[2022-07-19] MEDS: PANTOPRAZOLE SODIUM IV 40 MG VIAL IV PUSH ×2 (08:45→21:27)
[2022-07-19] MEDS: METOPROLOL TARTRATE 50 MG TAB BY MOUTH ×2 (08:46→21:23)
--- NOTE | 2022-07-19 09:07 | WPDGIPROGNO ---
Progress Note: A&P Assessment and Plan (1) Melena: Code(s): K92.1 - Melena Status: Acute Assessment and Plan: given the fact his stools are black and tarry when he became lightheaded I suspect upper gastrointestinal bleed. This is aggravated by the fact that he is anticoagulated. 07/19/2022 he had 2 melanotic stools yesterday. None so far today (2) Acute on chronic anemia: Code(s): D64.9 - Anemia, unspecified Status: Acute Assessment and Plan: His hemoglobin has been 9 recently but now is down to 8 and probably will trend lower with rehydration hemoglobin today is 7.4. 07/19/2022 hemoglobin remains stable at 7.3. (3) CKD (chronic kidney disease), stage III: Qualifiers: Chronic kidney disease stage 3 subtype: stage 3b (GFR 30-44) Qualified Code(s): N18.32 - Chronic kidney disease, stage 3b Code(s): N18.30 - Chronic kidney disease, stage 3 unspecified Status: Acute Assessment and Plan: he has been on hemodialysis 3 times a week and is under the care of Dr. Haynes. BUN is 89 today versus 53 last month. He has been seen by Nephrology. I told that because of his renal disease, we may give him PPI only once a day said twice a day for the next few weeks. (4) Obesity: Code(s): E66.9 - Obesity, unspecified Status: Acute (5) Atrial fibrillation: Code(s): I48.91 - Unspecified atrial fibrillation Status: Acute Assessment and Plan: He has been in atrial fibrillation chronically and takes Eliquis for that The EKG shows that he is in sinus rhythm at this time 07/19/2022 I would like to keep him off Eliquis for 5 days if agreeable with his other physicians. 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 He was started on IV cyclophosphamide and there is a plan for him to start additional chemotherapy. (7) Gastric ulcer with hemorrhage: Code(s): K25.4 - Chronic or unspecified gastric ulcer with hemorrhage Status: Acute Plan Hold Eliquis liquid diet for now EGD when safe from the point of view of anticoagulation follow H&H transfuse as necessary I will advance his diet. If he tolerates that and blood counts remain stable that I would be okay with him going home later today. EGD will be scheduled as an outpatient in 6 weeks to assess healing. Subjective Date/time seen: 07/19/22 09:07 He has no complaints today. No pain after the procedure. I discussed with him the findings, to gastric ulcers, a large 1 with a visible vessel that was cauterized. He had 2 black stools since yesterday. His hemoglobin however is stable at 7.3. He has tolerated his liquid diet. I told that I would like to try him on regular diet with the thought that he may be able to get out later today if his counts remain stable Exam Const: General: alert and obese Nutritional Appearance: obese Orientation/consciousness: patient oriented x3 HENMT: Ears: hearing grossly impaired Resp: Auscultation: clear to auscultation bilaterally Cardio: Rhythm: regular rhythm GI: Inspection: obesity GI Palp: No abdominal tenderness, Yes Soft to palpation, Yes No hepatosplenomegaly present and No Hernia present Auscultation: normal bowel sounds Neuro: General: patient oriented x3 Objective Data Vital Signs Vital Signs: Vital Signs - 24 hr 07/18/22 09:28 07/18/22 09:33 07/18/22 12:00 Temperature Pulse Rate 80 79 Respiratory Rate Blood Pressure Pulse Oximetry 98 Oxygen Delivery Room Air 07/18/22 14:20 07/18/22 16:00 07/18/22 20:37 Temperature 36.4 C L Pulse Rate 71 70 70 Respiratory Rate 14 Blood Pressure 110/77 Pulse Oximetry 100 Oxygen Delivery 07/18/22 20:00 07/18/22 22:24
--- NOTE | 2022-07-19 11:01 | PM.IMPN ---
Progress Note: A&P Assessment and Plan (1) Melena: Code(s): K92.1 - Melena Status: Acute Assessment and Plan: the patient stated that he was having black stools. The patient is on Eliquis which is now on hold. - GI has been consulted continue with IV Protonix. Check stool for occult blood check H and H every 6 hours type and crossmatch and transfuse as needed 07/19/2022 interval history: 81-year-old male with history of end-stage renal disease on hemodialysis presented with complaint of dizziness and black tarry stool concerning for upper GI bleeding however his hemoglobin was 8 upon arrival, and it is trending down to 7.4, on 07/18 patient was seen by GI and patient had a EGD showed patient has a gastric ulcer, will continue Protonix IV b.i.d., most likely secondary to pain medication patient had been taking on empty stomach, today c/o being dizzy and unsteady of his feet, patient will be seen by GI and printing bindery assistant, will continue to monitor, patient will have a scheduled dialysis. will continue to monitor (2) UTI (urinary tract infection): Code(s): N39.0 - Urinary tract infection, site not specified Status: Acute Assessment and Plan: continue with Rocephin blood and urine cultures are pending tailor antibiotics according to cultures and sensitivities (3) ESRD (end stage renal disease) on dialysis: Code(s): N18.6 - End stage renal disease; Z99.2 - Dependence on renal dialysis Status: Acute Assessment and Plan: the patient has dialysis on Tuesday. The patient is compliant with treatment and stated that his last treatment was on Nephrology has been consulted. Patient will have dialysis on Tuesday. 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 The patient does have a history of chronic anemia most likely due to end-stage renal disease type and cross match transfuse as necessary (6) Congestive heart failure: Code(s): I50.9 - Heart failure, unspecified Status: Acute Assessment and Plan: continue with Lasix and metoprolol echo from 05/19/2021 was read 1. Complete two-dimensional, color flow and Doppler transthoracic echocardiogram is performed. ? 2. Left ventricular chamber dimension is normal. ? 3. Left ventricular systolic function is preserved, estimated at 50-55%. ? 4. There is mildly increased left ventricular wall thickness. ? 5. Left ventricular septal wall motion is abnormal with septal motion related to bundle branch block. ? 6. The left ventricular diastolic function is abnormal. ? 7. e' .09 is abnormal suggests diastolic dysfunction. ? 8. Atrial fibrillation. ? 9. Right ventricular systolic function is mildly reduced and with abnormal TAPSE 1.4 cm. ? 10. Left atrial chamber dimension is moderately enlarged. ? 11. Right atrial chamber dimension is moderately enlarged. ? 12. There is severe aortic valve sclerosis. ? 13. There is moderate aortic valve stenosis with a peak velocity of 244 cm/s, mean gradient of 14 mmHg, and aortic valve area of 1.3 cm2. ? 14. There is trace jayna
--- NOTE | 2022-07-19 11:13 | P.PNNP_ITS ---
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 in favor of microscopic polyangiitis * s/p pulse dose steroids and on oral prednisone * s/p IV cytoxan (on 06/10/22) and on oral cytoxan * still making urine but BUN + creatinine rise inbetween HD treatments * HD tomorrow and continue T/T/S schedule for now * the hope is for possible renal recovery but gettting dialytic support until this occurs * follow trend of repeat labs and UOP (to assess for potential renal recovery) (2) Chronic kidney disease, stage IV (severe): Code(s): N18.4 - Chronic kidney disease, stage 4 (severe) Status: Chronic Assessment and Plan: * since 2019, creatinine has been running ~ 1.4 - 1.7mg/dl * however, in July 2021, it increased to 1.93mg/dl * then, in March 2022, it was 2.32mg/dl * on discharge in early May 2022, it was 3.3mg/dl * outpatient labs on 05/28/22, creatinine up to 4.4mg/dl * probably has some underlying chronic kidney disease due to HTN, vascular disease/CHF, and age * not clear when microscopic polyangiitis started ... * renal biopsy did not show significant chronic disease (3) Melena: Code(s): K92.1 - Melena Status: Acute Assessment and Plan: * s/p EGD yesterday with findings/interventions noted (gastric ulcers) * follow serial H/Hs * eliquis on hold * Gastroenterology following * on PPI * Epogen with HD * PRBC transfusion per protocol (4) UTI (urinary tract infection): Code(s): N39.0 - Urinary tract infection, site not specified Status: Acute Assessment and Plan: * urinalysis suggestive * however, blood and urine cultures negative to date * on antibiotics (5) Hypertension: Code(s): I10 - Essential (primary) hypertension Status: Chronic Assessment and Plan: * reasonable control at this time * follow trend of hemodynamics (6) Atrial fibrillation: Code(s): I48.91 - Unspecified atrial fibrillation Status: Acute Assessment and Plan: * rate control strategy * on metoprolol * holding anticoagulation due to #3 Will continue to follow. Subjective Date/time seen: 07/19/22 11:14 S/P EGD yesterday with findings noted (gastric ulcers); H/H remains relatively stable at this time; no apparent distress voiced at the time of my visit; no events overnight or earlier this AM. Exam Narrative: General: WD/WN elderly male in NAD Heart: normal S1 and S2; no rub Lungs: clear anteriorly and coarse at bases Abdomen: soft, nontender, nondistended, positive bowel sounds Extremities: no significant edema Skin: no rash Objective Data Vital Signs Vital Signs: Vital Signs Temp Pulse Resp BP Pulse Ox 07/19/22 09:45 18 L 74 H 93/74 L 99 07/19/22 09:46 62 18 101/72 99 07/19/22 06:22 97.2 F L 74 22 H 103/66 100 07/19/22 04:00 79 07/19/22 00:00 85 07/18/22 22:24 97.6 F 69 21 H 122/82 100 07/18/22 20:00 81 07/18/22 20:37 70 07/18/22 16:00 70 07/18/22 14:20 97.5 F L 71 14 110/77 100
--- NOTE | 2022-07-19 11:13 | PM.PNNEP ---
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 -- this would argue in favor of microscopic polyangiitis s/p pulse dose steroids and on oral prednisone s/p IV cytoxan (on 06/10/22) and on oral cytoxan still making urine but BUN + creatinine rise inbetween HD treatments HD tomorrow and continue T/T/S schedule for now the hope is for possible renal recovery but gettting dialytic support until this occurs follow trend of repeat labs and UOP (to assess for potential renal recovery) (2) Chronic kidney disease, stage IV (severe): Code(s): N18.4 - Chronic kidney disease, stage 4 (severe) Status: Chronic Assessment and Plan: since 2019, creatinine has been running ~ 1.4 - 1.7mg/dl however, in July 2021, it increased to 1.93mg/dl then, in March 2022, it was 2.32mg/dl on discharge in early May 2022, it was 3.3mg/dl outpatient labs on 05/28/22, creatinine up to 4.4mg/dl probably has some underlying chronic kidney disease due to HTN, vascular disease/CHF, and age not clear when microscopic polyangiitis started ... renal biopsy did not show significant chronic disease (3) Melena: Code(s): K92.1 - Melena Status: Acute Assessment and Plan: s/p EGD yesterday with findings/interventions noted (gastric ulcers) follow serial H/Hs eliquis on hold Gastroenterology following on PPI Epogen with HD PRBC transfusion per protocol (4) UTI (urinary tract infection): Code(s): N39.0 - Urinary tract infection, site not specified Status: Acute Assessment and Plan: urinalysis suggestive however, blood and urine cultures negative to date on antibiotics (5) Hypertension: Code(s): I10 - Essential (primary) hypertension Status: Chronic Assessment and Plan: reasonable control at this time follow trend of hemodynamics (6) Atrial fibrillation: Code(s): I48.91 - Unspecified atrial fibrillation Status: Acute Assessment and Plan: rate control strategy on metoprolol holding anticoagulation due to #3 Will continue to follow. Subjective Date/time seen: 07/19/22 11:14 S/P EGD yesterday with findings noted (gastric ulcers); H/H remains relatively stable at this time; no apparent distress voiced at the time of my visit; no events overnight or earlier this AM. Exam Narrative: General: WD/WN elderly male in NAD Heart: normal S1 and S2; no rub Lungs: clear anteriorly and coarse at bases Abdomen: soft, nontender, nondistended, positive bowel sounds Extremities: no significant edema Skin: no rash Objective Data Vital Signs Vital Signs: Vital Signs Temp Pulse Resp BP Pulse Ox 07/19/22 09:45 18 L 74 H 93/74 L 99 07/19/22 09:46 62 18 101/72 99 07/19/22 06:22 97.2 F L 74 22 H 103/66 100 07/19/22 04:00 79 07/19/22 00:00 85 07/18/22 22:24 97.6 F 69 21 H 122/82 100 07/18/22 20:00 81 07/18/22 20:37 70 07/18/22 16:00 70 07/18/22 14:20 97.5 F L 71 14 110/77 100 07/18/22 12:00 79 Intake/Output Intake/Output: Intake & Output 07/16/22 07/17/22 07/18/22 07/19/22 23:59 23:59 23:59 23:59 Intake Total 50 770 960 860 Output Total 0 3000 250 Balance 50 -2230 710 860 Meds/Results Medications: Active Medications Generic Name Dose Route Start Last Admin Trade Name Freq PRN Reason Stop Dose Admin Cyclophosphamide 100 mg 07/17/22 09:00 07/19/22 08:45 Cyclophosphamide (*Bkc) 50 Mg Tablet PO 100 mg DAILY ROBERT Administration Furosemide 40 mg 07/17/22 09:00 07/19/22 08:45 Furosemide 40 Mg Tablet PO 40 mg DAILY ROBERT Administration Hydromorphone HCl 0.5 mg 07/18/22 08:26
[2022-07-20] VITALS (18 sets, daily range): BP systolic 97–130; BP diastolic 66–83; PULSE 70–96; RESP 16–22; TEMP 36–36.6; O2SAT 100
[2022-07-20 05:29] LABS: Basophils Percent Auto 0.2 % (0.2-1.2); Eosinophils Percent Auto 0.2 % (0-4.4); Hematocrit 22.6 % (42.0-52.0); Immature Granulocyte Absolute 0.06 K/mm3 (0.00-0.031); Lymphocytes Absolute Auto 0.35 K/mm3 (0.9-3.2); Mean Corpuscular Hemoglobin 31.8 pg (26-34); Mean Corpuscular Volume 102.7 fl (80-100); Mean Platelet Volume 9.6 fl (7.4-10.4); Monocytes Absolute Auto 0.4 K/mm3 (0.1-0.6); Monocytes Percent Auto 7.3 % (2.6-8.5); Neutrophils Absolute Auto 4.9 K/mm3 (1.3-6.7); Neutrophils Percent Auto 85.3 % (45.5-73.1); Nucleated Red Blood Cells Absolute Auto 0.1 K/mm3 (0.0-0.012); Nucleated Red Blood Cells Perc 1.4 % (0.0-0.2); Platelet Count Result 124 k/mm3 (150-375); Red Cell Distribution Width 17.5 % (11.5-14.5); White Blood Count 5.8 K/mm3 (4.5-10.0)
[2022-07-20 06:08] LABS: Albumin Level 3.1 g/dL (3.5-5.1); Anion Gap 5 mmol/L (8-16); Blood Urea Nitrogen 64 mg/dL (9-20); Calcium 7.9 mg/dL (8.4-10.2); Carbon Dioxide 27 mmol/L (22-30); Chloride 103 mmol/L (98-107); Estimated CRCL calculation 19 ml/min; Estimated Glomerular Filt Rate 14; Glucose 99 mg/dL (65-110); Phosphorus 4.1 mg/dL (2.5-4.5); Potassium 4.9 mmol/L (3.4-5.0); Sodium 135 mmol/L (137-145)
[2022-07-20 09:34] LABS: Hematocrit 22.3 % (42.0-52.0); Hemoglobin 7.1 g/dL (14.0-18.0)
--- NOTE | 2022-07-20 09:43 | P.CDI_ITS ---
CDI Query Clarified Diagnosis Clarified Diagnosis: Documented history of CHF. CHF noted on assessment and plan. Pt receiving Lasix. Lasix is listed as a home medication. Chest Xray from 07/17/22 notes Pulmonary edema. Please specify type and acuity of heart failure if known. * Acute * Chronic * Acute on Chronic * Unknown * Systolic * Diastolic * Combined Systolic and Diastolic * Unknown <Carolyn Moya RN - Last Filed: 07/20/22 09:46> Provider Comments Recent cardiac echo showed preserved LV function with ejection fraction of 70%, showed diastolic dysfunction abnormal most likely patient has acute on chronic diastolic congestive heart failure <Kirby Nathan MD - Last Filed: 07/31/22 15:16>
--- NOTE | 2022-07-20 10:11 | P.PNNP_ITS ---
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 in favor of microscopic polyangiitis * s/p pulse dose steroids and on oral prednisone * s/p IV cytoxan (on 06/10/22) and on oral cytoxan * still making urine but BUN + creatinine rise inbetween HD treatments * HD today and continue T/T/S schedule for now * the hope is for possible renal recovery but gettting dialytic support until this occurs * follow trend of repeat labs and UOP (to assess for potential renal recovery) (2) Chronic kidney disease, stage IV (severe): Code(s): N18.4 - Chronic kidney disease, stage 4 (severe) Status: Chronic Assessment and Plan: * since 2019, creatinine has been running ~ 1.4 - 1.7mg/dl * however, in July 2021, it increased to 1.93mg/dl * then, in March 2022, it was 2.32mg/dl * on discharge in early May 2022, it was 3.3mg/dl * outpatient labs on 05/28/22, creatinine up to 4.4mg/dl * probably has some underlying chronic kidney disease due to HTN, vascular disease/CHF, and age * not clear when microscopic polyangiitis started ... * renal biopsy did not show significant chronic disease (3) Melena: Code(s): K92.1 - Melena Status: Acute Assessment and Plan: * s/p EGD (on 07/18/22) with findings/interventions noted (gastric ulcers) * follow serial H/Hs * eliquis on hold * Gastroenterology following * on PPI * Epogen with HD * PRBC transfusion per protocol (4) Hypertension: Code(s): I10 - Essential (primary) hypertension Status: Chronic Assessment and Plan: * reasonable control at this time * follow trend of hemodynamics (5) Atrial fibrillation: Code(s): I48.91 - Unspecified atrial fibrillation Status: Acute Assessment and Plan: * rate control strategy * on metoprolol * holding anticoagulation due to #3 Will continue to follow. Subjective Date/time seen: 07/20/22 10:11 Tolerating dialysis at the time of my visit (seen on HD at 10:00AM); no other acute issues/complaints voiced; feels reasonably well; no issues/events overnight or earlier this AM. Exam Narrative: General: WD/WN elderly male in NAD Heart: normal S1 and S2; no rub Lungs: clear anteriorly and coarse at bases Abdomen: soft, nontender, nondistended, positive bowel sounds Extremities: no significant edema Skin: no nodules Objective Data Vital Signs Vital Signs: Vital Signs Temp Pulse Resp BP Pulse Ox O2 Del Method 07/20/22 10:00 86 112/72 07/20/22 09:40 96 97/66 L 07/20/22 09:20 83 101/68 07/20/22 09:00 83 103/75 07/20/22 08:47 70 127/80 07/20/22 08:45 97.5 F L 71 16 130/79 07/20/22 04:43 97.1 F L 76 22 H 119/83 100 07/20/22 04:00 78 07/20/22 00:00 84 07/19/22 20:00 84 22 H 97 Room Air 07/19/22 20:00 86 07/19/22 21:23 84 07/19/22 21:04 97.8 F 94 22 H 108/72 97 07/19/22 21:01 97.8 F 94 22 H 108/72 97 07/19/22 16:00 82 07/19/22 12:00 95 07/19/22 14:00
--- NOTE | 2022-07-20 10:11 | PM.PNNEP ---
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 -- this would argue in favor of microscopic polyangiitis s/p pulse dose steroids and on oral prednisone s/p IV cytoxan (on 06/10/22) and on oral cytoxan still making urine but BUN + creatinine rise inbetween HD treatments HD today and continue T/T/S schedule for now the hope is for possible renal recovery but gettting dialytic support until this occurs follow trend of repeat labs and UOP (to assess for potential renal recovery) (2) Chronic kidney disease, stage IV (severe): Code(s): N18.4 - Chronic kidney disease, stage 4 (severe) Status: Chronic Assessment and Plan: since 2019, creatinine has been running ~ 1.4 - 1.7mg/dl however, in July 2021, it increased to 1.93mg/dl then, in March 2022, it was 2.32mg/dl on discharge in early May 2022, it was 3.3mg/dl outpatient labs on 05/28/22, creatinine up to 4.4mg/dl probably has some underlying chronic kidney disease due to HTN, vascular disease/CHF, and age not clear when microscopic polyangiitis started ... renal biopsy did not show significant chronic disease (3) Melena: Code(s): K92.1 - Melena Status: Acute Assessment and Plan: s/p EGD (on 07/18/22) with findings/interventions noted (gastric ulcers) follow serial H/Hs eliquis on hold Gastroenterology following on PPI Epogen with HD PRBC transfusion per protocol (4) Hypertension: Code(s): I10 - Essential (primary) hypertension Status: Chronic Assessment and Plan: reasonable control at this time follow trend of hemodynamics (5) Atrial fibrillation: Code(s): I48.91 - Unspecified atrial fibrillation Status: Acute Assessment and Plan: rate control strategy on metoprolol holding anticoagulation due to #3 Will continue to follow. Subjective Date/time seen: 07/20/22 10:11 Tolerating dialysis at the time of my visit (seen on HD at 10:00AM); no other acute issues/complaints voiced; feels reasonably well; no issues/events overnight or earlier this AM. Exam Narrative: General: WD/WN elderly male in NAD Heart: normal S1 and S2; no rub Lungs: clear anteriorly and coarse at bases Abdomen: soft, nontender, nondistended, positive bowel sounds Extremities: no significant edema Skin: no nodules Objective Data Vital Signs Vital Signs: Vital Signs Temp Pulse Resp BP Pulse Ox O2 Del Method 07/20/22 10:00 86 112/72 07/20/22 09:40 96 97/66 L 07/20/22 09:20 83 101/68 07/20/22 09:00 83 103/75 07/20/22 08:47 70 127/80 07/20/22 08:45 97.5 F L 71 16 130/79 07/20/22 04:43 97.1 F L 76 22 H 119/83 100 07/20/22 04:00 78 07/20/22 00:00 84 07/19/22 20:00 84 22 H 97 Room Air 07/19/22 20:00 86 07/19/22 21:23 84 07/19/22 21:04 97.8 F 94 22 H 108/72 97 07/19/22 21:01 97.8 F 94 22 H 108/72 97 07/19/22 16:00 82 07/19/22 12:00 95 07/19/22 14:00 98.5 F 88 18 100/60 98 Intake/Output Intake/Output: Intake & Output 07/17/22 07/18/22 07/19/22 07/20/22 23:59 23:59 23:59 23:59 Intake Total 770 1010 1490 510 Output Total 3000 250 Balance -2230 760 1490 510 Meds/Results Medications: Active Medications Generic Name Dose Route Start Last Admin Trade Name Freq PRN Reason Stop Dose Admin Cyclophosphamide 100 mg 07/17/22 09:00 07/19/22 08:45 Cyclophosphamide (*Bkc) 50 Mg Tablet PO 100 mg DAILY ROBERT Administration Epoetin Santiago-epbx 20,000 units 07/20/22 15:00 Epoetin Santiago-Epbx 20,000 Units/Ml Vial IV PUSH 07/20/22 15:01 ONCE ONE Furosemide 40 mg 07/17/22 09:00 07/19/22 08:45 F
--- NOTE | 2022-07-20 11:56 | PM.DS ---
DS: Admitting Diagnosis Discharge Date 07/20/2022 Admitting Diagnosis Dizziness DS: Discharge Diagnosis Discharge Diagnosis (1) Melena: Code(s): K92.1 - Melena Status: Acute Assessment and Plan: the patient stated that he was having black stools. The patient is on Eliquis which is now on hold. - GI has been consulted continue with IV Protonix. Check stool for occult blood check H and H every 6 hours type and crossmatch and transfuse as needed 07/19/2022 interval history: 81-year-old male with history of end-stage renal disease on hemodialysis presented with complaint of dizziness and black tarry stool concerning for upper GI bleeding however his hemoglobin was 8 upon arrival, and it is trending down to 7.4, on 07/18 patient was seen by GI and patient had a EGD showed patient has a gastric ulcer, will continue Protonix IV b.i.d., most likely secondary to pain medication patient had been taking on empty stomach, today c/o being dizzy and unsteady of his feet, patient will be seen by GI and track manager, will continue to monitor, patient will have a scheduled dialysis. will continue to monitor (2) UTI (urinary tract infection): Code(s): N39.0 - Urinary tract infection, site not specified Status: Acute Assessment and Plan: continue with Rocephin blood and urine cultures are pending tailor antibiotics according to cultures and sensitivities (3) ESRD (end stage renal disease) on dialysis: Code(s): N18.6 - End stage renal disease; Z99.2 - Dependence on renal dialysis Status: Acute Assessment and Plan: the patient has dialysis on Tuesday. The patient is compliant with treatment and stated that his last treatment was on Nephrology has been consulted. Patient will have dialysis on Tuesday. 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 The patient does have a history of chronic anemia most likely due to end-stage renal disease type and cross match transfuse as necessary (6) Congestive heart failure: Code(s): I50.9 - Heart failure, unspecified Status: Acute Assessment and Plan: continue with Lasix and metoprolol echo from 05/19/2021 was read 1. Complete two-dimensional, color flow and Doppler transthoracic echocardiogram is performed. ? 2. Left ventricular chamber dimension is normal. ? 3. Left ventricular systolic function is preserved, estimated at 50-55%. ? 4. There is mildly increased left ventricular wall thickness. ? 5. Left ventricular septal wall motion is abnormal with septal motion related to bundle branch block. ? 6. The left ventricular diastolic function is abnormal. ? 7. e' .09 is abnormal suggests diastolic dysfunction. ? 8. Atrial fibrillation. ? 9. Right ventricular systolic function is mildly reduced and with abnormal TAPSE 1.4 cm. ? 10. Left atrial chamber dimension is moderately enlarged. ? 11. Right atrial chamber dimension is moderately enlarged. ? 12. There is severe aortic valve sclerosis. ? 13. There is moderate aortic valve stenosis with a peak velocity of 244 c
[2022-07-20] MEDS: EPOETIN ALFA-EPBX 20,000 UNITS/ML VIAL 20000 UNITS IV PUSH (12:10)
[2022-07-20] MEDS: SODIUM CHLORIDE 0.9% IV 1,000 ML 999 ML IV CONT (12:11)
[2022-07-20] MEDS: predniSONE 5 MG TABLET 15 MG PO (13:03)
[2022-07-20] MEDS: METOPROLOL TARTRATE 50 MG TAB BY MOUTH (13:04)
[2022-07-20] MEDS: FUROSEMIDE 40 MG TABLET PO (13:04)
[2022-07-20] MEDS: PANTOPRAZOLE SODIUM IV 40 MG VIAL IV PUSH (13:04)
== END 2022-07-20 15:49 | disposition home health service (06) | DRG 377 ==
LOC: ANHED 12:52 → ANH2MED 16:13
PROVIDERS: Emergency Medicine; Internal Medicine Gastroenterology; Internal Medicine Nephrology; Nurse Practitioner; Admitting Provider Hospitalist; Emergency Provider Emergency Medicine; PCP Family Medicine; Visit Provider Family Medicine
PROC: 0DJ08ZZ Inspection of Upper Intestinal Tract, Via Natural or Artificial Opening Endoscopic (ICD-10-PCS; CPT 43235; principal; 2022-07-18 07:30)
DX: K25.4 Chronic or unspecified gastric ulcer with hemorrhage (principal); N18.6 End stage renal disease; N39.0 Urinary tract infection, site not specified; I13.2 Hypertensive heart and chronic kidney disease with heart failure and with stage 5 chronic kidney disease, or end stage renal disease; T50.905A Adverse effect of unspecified drugs, medicaments and biological substances, initial encounter; Z99.2 Dependence on renal dialysis; N06 Isolated proteinuria with specified morphological lesion; D63.1 Anemia in chronic kidney disease; I50.9 Heart failure, unspecified; I48.91 Unspecified atrial fibrillation; M10.9 Gout, unspecified; M06.9 Rheumatoid arthritis, unspecified; Z88.3 Allergy status to other anti-infective agents; Z82.49 Family history of ischemic heart disease and other diseases of the circulatory system; Z87.891 Personal history of nicotine dependence; Z79.52 Long term (current) use of systemic steroids; Z79.890 Hormone replacement therapy; Z79.899 Other long term (current) drug therapy
CPT/HCPCS: 36415; 71045; 80053; 80069; 81001; 82274; 82948; 83605; 83735; 84443; 85014; 85018; 85025; 85610; 85730; 86706; 86850; 86900; 86901; 87040; 87081; 87086; 87088; 87340; 93005; 96365; 96366; 96375; 96376; 99285; A9270; C9113; G0257; G0378; J0171; J0696; J1644; J2001; J2704; J7030; J7040; J7512; J8530; Q5105

== ENCOUNTER 2022-09-23 04:40 | Inpatient (IN) | payer MEDICARE, SELFPAY ==
[2022-09-23] VITALS (26 sets, daily range): BP systolic 92–137; BP diastolic 74–98; PULSE 9–113; RESP 16–34; TEMP 36–37.4; O2SAT 90–99; BMI 38.9
--- NOTE | ~2022-09-23 | XR_ITS ---
EXAMINATION: XR chest port-a-cath/central DATE: 09/27/2022 12:05 INDICATION: Central line placement. TECHNIQUE: A single frontal view of the chest was obtained. COMPARISON: Chest single view 09/25/2022, chest CT 06/05/2022 FINDINGS: There are airspace opacities and interstitial opacities in all lung zones bilaterally. No p leural effusion or pneumothorax. Cardiomegaly is noted. There is chronic widening of the superior med iastinum correlating with mediastinal lipomatosis on the prior CT. A left internal jugular central ve nous catheter is seen with tip in the left brachiocephalic vein. There are suture anchors in right hu meral head. IMPRESSION: 1. Central line tip in the left brachiocephalic vein. 2. Mildly worsened diffuse lung disease, consistent with pulmonary edema or less likely pneumonia. 3. Cardiomegaly. Reviewed, dictated and finalized at location A. IMPRESSION: 1. Central line tip in the left brachiocephalic vein. 2. Mildly worsened diffuse lung disease, consistent with pulmonary edema or les s likely pneumonia. 3. Cardiomegaly.
--- NOTE | ~2022-09-23 | XR_ITS ---
EXAMINATION: XR chest 1V portable INDICATION: Congestive heart failure versus pneumonia TECHNIQUE: Portable AP chest at 0512 hours COMPARISON: 10/02/2022 FINDINGS: A large bore left internal jugular catheter ends with its tip in the left brachiocephalic v ein. The lung volumes are low. There are diffuse opacities of the lungs with improvement in the right lung and worsening in the left mid and lower lung zones. No pleural effusion or pneumothorax. Cardio megaly is noted. IMPRESSION: 1. Diffuse opacities of the lungs with improvement on the right and worsening in the left mid and low er lung zones, consistent with atelectasis versus pneumonia versus pulmonary edema. 2. Cardiomegaly. Reviewed, dictated and finalized at location A. IMPRESSION: 1. Diffuse opacities of the lungs with improvement on the right and worsening i n the left mid and lower lung zones, consistent with atelectasis versus pneumon ia versus pulmonary edema. 2. Cardiomegaly.
--- NOTE | ~2022-09-23 | XR_ITS ---
EXAMINATION: XR fl guide central line place DATE: 09/27/2022 11:42 INDICATION: Central line placement. TECHNIQUE: A single intraoperative spot fluoroscopic view of the chest was obtained. I was not presen t. Fluoroscopy exposure time was 1 minute 51 seconds. COMPARISON: Chest CT 06/05/2022 FINDINGS: There is a left internal jugular central venous catheter with tip in left brachiocephalic v ein. IMPRESSION: 1. Central line tip in left brachiocephalic vein. Reviewed, dictated and finalized at location A.
--- NOTE | ~2022-09-23 | XR_ITS ---
EXAMINATION: XR sniff test without CXR2V DATE: 10/05/2022 09:28 INDICATION: Left hemidiaphragm paralysis. TECHNIQUE: I performed fluoroscopy of the chest while the patient performed normal breathing, deep br eathing, and forceful sniffing. The fluoroscopy exposure time was 0.6 minutes. The number of images w as 917. COMPARISON: Chest single view 10/04/2022 FINDINGS: There is elevation of left hemidiaphragm. The diaphragm is hypomobile with normal respirati on and deep respiration. There is paradoxical motion of the left hemidiaphragm with forceful sniffing . IMPRESSION: 1. Elevation of left hemidiaphragm with paradoxical motion of the left hemidiaphragm with forceful sn iffing. Reviewed, dictated and finalized at location A. IMPRESSION: 1. Elevation of left hemidiaphragm with paradoxical motion of the left hemidiap hragm with forceful sniffing.
--- NOTE | ~2022-09-23 | XR_ITS ---
EXAMINATION: XR chest 1V portable DATE: 10/04/2022 07:00 INDICATION: Congestive heart failure. TECHNIQUE: A single frontal view of the chest was obtained. COMPARISON: Chest single view 10/03/2022, chest CT 09/30/2022 FINDINGS: Again seen is mild elevation of left hemidiaphragm. There are airspace opacities in right l ower lung zone and left mid and lower lung zones. There is an embolized wire in right lower lobe. No pleural effusion or pneumothorax. Cardiomegaly is noted. There is a left internal jugular central kecia ous catheter with tip in left brachiocephalic vein. IMPRESSION: 1. Airspace opacities in right lower lung zone and left mid and lower lung zones with improvement on the left, consistent with atelectasis versus pneumonia versus pulmonary edema. 2. Embolized wire again seen in right lower lobe. 3. Cardiomegaly. Reviewed, dictated and finalized at location A. IMPRESSION: 1. Airspace opacities in right lower lung zone and left mid and lower lung zone s with improvement on the left, consistent with atelectasis versus pneumonia ve rsus pulmonary edema. 2. Embolized wire again seen in right lower lobe. 3. Cardiomegaly.
--- NOTE | ~2022-09-23 | CT_ITS ---
EXAMINATION: CT soft tissue neck chest wo DATE: 09/30/2022 15:36 INDICATION: Neck pain. Shortness of breath. TECHNIQUE: Computed tomography (CT) of the neck and chest was performed with 75 mL Omnipaque-350 intr avenous contrast. Automated exposure control and iterative reconstruction technique were employed. Th e dose-length product was 1210.91 mGy-cm. COMPARISON: Chest CT 06/05/2022 FINDINGS: CT NECK: There are likely changes of ocular lens replacement surgeries. There is a left internal jugu lar central venous catheter with tip in left brachiocephalic vein. There is a 15 x 22 mm right superi or clavicular lymph node. Severe cervical spondylosis. CT CHEST: There are groundglass and airspace opacities and septal thickening involving all lobes. The re is an embolized wire in a pulmonary artery in right lower lobe. There are small pleural effusions. Cardiomegaly is noted. There are coronary artery calcifications. There are calcifications of the aor tic valve. No pericardial effusion. There is bilateral gynecomastia. There is a 2.9 cm cyst in the li jai. There are 2 stones in left kidney with the larger measuring 5 mm. There is severe thoracic spond ylosis. There is mild chronic anterior wedging of multiple vertebral bodies. IMPRESSION: 1. Diffuse lung disease, consistent with pulmonary edema versus pneumonia. 2. Small pleural effusions. 3. Embolized wire in a pulmonary artery in right lower lobe. 4. Mildly enlarged right supraclavicular lymph node, likely reactive. Reviewed, dictated and finalized at location A.
--- NOTE | ~2022-09-23 | XR_ITS ---
EXAMINATION: XR chest 1V portable DATE: 09/30/2022 14:00 INDICATION: Tachycardia. TECHNIQUE: A single frontal view of the chest was obtained on 2 radiographs. COMPARISON: Chest CT 06/05/2022, chest single view 09/27/2022 FINDINGS: There are airspace opacities in the mid and lower lung zones, left worse than right. No ple ural effusion or pneumothorax. Cardiomegaly is noted. A left internal jugular central venous catheter is seen with tip in the left brachiocephalic vein. IMPRESSION: 1. Improved airspace opacities in the mid and lower lung zones, left worse than right, consistent wit h pulmonary edema versus pneumonia. 2. Cardiomegaly. Reviewed, dictated and finalized at location A. IMPRESSION: 1. Improved airspace opacities in the mid and lower lung zones, left worse than right, consistent with pulmonary edema versus pneumonia. 2. Cardiomegaly.
--- NOTE | ~2022-09-23 | XR_ITS ---
XR chest 1V portable 09/25/2022 10:15 Indication: Evaluate dialysis access Procedure: AP portable chest Comparison: Comparison to multiple prior studies sequentially, with oldest reviewed study dated 06/09. Findings: Interval removal of central venous catheter. Borderline heart size. Mild interstitial edema . Small right pleural effusion. No pneumothorax. Impression: 1: Mild interstitial edema with small right pleural effusion. Reviewed, dictated and finalized at location A. Impression: 1: Mild interstitial edema with small right pleural effusion.
--- NOTE | ~2022-09-23 | CT_ITS ---
EXAMINATION: CT brain wo con DATE: 09/30/2022 15:36 INDICATION: Altered mental status. Neck pain. TECHNIQUE: Computed tomography (CT) of the head was performed without intravenous contrast. The mA wa s adjusted according to patient size. Iterative reconstruction technique was employed. The dose-lengt h product was 1210.67 mGy-cm. COMPARISON: None FINDINGS: There are scattered areas of low attenuation in the cerebral white matter, which is within normal limits for the patient's age. There is no intracranial hemorrhage, acute infarction, or abnorm al intracranial mass lesion. The ventricles are normal in size. There are likely changes of ocular le ns replacement surgeries. There is mild mucosal thickening in the ethmoid sinuses. The mastoid air ce lls are normal. IMPRESSION: 1. Normal aging brain. Reviewed, dictated and finalized at location A. IMPRESSION: 1. Normal aging brain.
--- NOTE | ~2022-09-23 | XR_ITS ---
EXAMINATION: XR chest 1V portable INDICATION: Congestive heart failure versus pneumonia TECHNIQUE: Portable AP chest at 0553 hours COMPARISON: 10/01/2022 FINDINGS: Cardiomegaly is noted. A left internal jugular central venous catheter ends with its tip in the left brachiocephalic vein. The lung volumes are low. There are persistent airspace opacities of the mid and lower lung zones with slight worsening in the left midlung zone and right lung base. No p leural effusion or pneumothorax. Suture anchors are noted in the right humeral head. IMPRESSION: 1. Worsening airspace opacities of the left midlung zone and right lung base, consistent with pulmona ry edema versus pneumonia versus atelectasis. 2. Cardiomegaly. Reviewed, dictated and finalized at location A. IMPRESSION: 1. Worsening airspace opacities of the left midlung zone and right lung base, c onsistent with pulmonary edema versus pneumonia versus atelectasis. 2. Cardiomegaly.
--- NOTE | ~2022-09-23 | XR_ITS ---
EXAMINATION: XR barium swallow modified DATE: 10/05/2022 09:25 INDICATION: Cough when drinking liquids. TECHNIQUE: The patient was given barium-containing material of multiple consistencies to swallow by t shanetlle speech pathologist while I performed fluoroscopy. Fluoroscopy exposure time was 1.2 minutes. The n umber of fluoroscopy images saved to the PACS was 1. Dose-area product was 3.141 Gy-cm^2. FINDINGS: Sensitivity is decreased by obesity. The oral stage, pharyngeal stage, and cervical/esophageal stage of the swallow are normal. IMPRESSION: 1. Normal modified barium swallow. 2. Please refer to the speech therapy report for recommendations. Reviewed, dictated and finalized at location A.
--- NOTE | ~2022-09-23 | XR_ITS ---
XR chest 1V portable 10/01/2022 08:36 Indication: CHF versus pneumonia Procedure: AP portable chest Comparison: Comparison to multiple prior studies sequentially, with oldest reviewed study dated 09/23. Findings: Cardiomegaly. There is diffuse bilateral airspace disease, most likely edema versus pneumon ia. No significant effusion or pneumothorax. Central venous catheter tip in the right brachiocephalic vein. No pneumothorax. Impression: 1: Cardiomegaly with diffuse bilateral airspace disease, most likely edema. Pneumonia less favored. Reviewed, dictated and finalized at location B. Impression: 1: Cardiomegaly with diffuse bilateral airspace disease, most likely edema. Pne umonia less favored.
--- NOTE | ~2022-09-23 | XR_ITS ---
Portable chest x-ray Comparison: 07/17/2022 Clinical History: Weakness Findings: Right-sided central venous line is unchanged. Questionable minimal bibasilar pulmonary haz iness. No pleural effusion or pneumothorax. Cardiomediastinal silhouette is stable. Bones and soft t issues are unremarkable. Impression: Questionable minimal pulmonary edema. Stable support line. Reviewed, dictated and finalized at location . Impression: Questionable minimal pulmonary edema. Stable support line.
--- NOTE | 2022-09-23 04:46 | ECG_ITS ---
Measurements Intervals [place] Rate: 99 P: DE: 0 QRS: -11 QRSD: 97 T: 44 QT: 334 QTc: 429 Interpretive Statements ATRIAL FIBRILLATION ABNORMAL ECG COMPARED TO ECG 07/16/2022 15:30:51 ATRIAL FIBRILLATION NOW PRESENT Electronically Signed On 09-23-2022 6:42:56 CDT by Luca Kaufman D.O.
[2022-09-23 05:31] LABS: Hematocrit 35.2 % (42.0-52.0); Hemoglobin 11.7 g/dL (14.0-18.0); Mean Corpuscular HGB Conc 33.2 g/dl (32-36); Mean Corpuscular Hemoglobin 34.9 pg (26-34); Mean Corpuscular Volume 105.1 fl (80-100); Mean Platelet Volume 9.6 fl (7.4-10.4); Platelet Count Result 156 k/mm3 (150-375); Red Blood Count 3.35 M/mm3 (4.6-6.20); Red Cell Distribution Width 17.4 % (11.5-14.5)
[2022-09-23 05:36] LABS: White Blood Count 1.7 K/mm3 (4.5-10.0)
[2022-09-23 05:42] LABS: INR 1.1; Lactic Acid Reflex 1.6 mmol/L (0.7-2.0); Prothrombin Time 14.5 Seconds (11.1-14.7)
[2022-09-23 05:43] LABS: Partial Thromboplastin Time 28.6 SECONDS (22.3-36.8)
[2022-09-23 05:45] LABS: Lipase 106 U/L (23-300); Magnesium 1.8 mg/dL (1.6-2.3)
--- NOTE | 2022-09-23 05:46 | ED.GENADULT ---
HPI - General Adult General Chief complaint: Weakness Stated complaint: GENERALIZED WEAKNESS Time Seen by Provider: 09/23/22 04:43 History of Present Illness HPI narrative: this is an 82-year-old male presenting ED with chief complaint of generalized weakness. Patient says that he has been feeling weak for approximately 2-3 weeks. He is here in the ED today because while he was getting out of bed he fell to the side and scraped his arm on the wall. He denies head trauma. Denies loss of consciousness. He had just woken up he is not sure exactly why he fell. At this time the patient is resting comfortably denies fever, chills, chest pain, difficulty breathing, abdominal pain or urinary symptoms. He is due for dialysis today and has missed his appointment because he is here in the emergency room. Patient's only injury is skin tear on the left arm. Last tetanus shot is unknown. Related Data Home Medications Medication Instructions Recorded Confirmed Centrum Men 1 cap PO DAILY 05/16/22 08/28/22 [place] 3 Fish Oil 1 cap PO DAILY 05/16/22 08/28/22 Probiotic Blend 1 cap PO DAILY 05/16/22 08/28/22 metoprolol tartrate 50 mg tablet See Rx Instructions .Route .COMPLEX 07/16/22 08/28/22 Allergies Allergy/AdvReac Type Severity Reaction Status Date / Time camphor [From Biofreeze] Allergy Intermediate Hives Verified 08/27/22 13:39 menthol [From Biofreeze] Allergy Intermediate Hives Verified 08/27/22 13:39 [facility] Past Medical History Medical History Aortic stenosis, moderate Atrial fibrillation Atrial fibrillation CHF (congestive heart failure) DJD (degenerative joint disease) Dyspnea due to congestive heart failure Elevated lipids History of DVT (deep vein thrombosis) HLD (hyperlipidemia) HTN (hypertension) Hypertension Insomnia Insomnia Osteoarthritis Rheumatoid arthritis Surgical History Surgical History History of shoulder surgery History of tonsillectomy and adenoidectomy History of total knee replacement History of total knee replacement Status post right rotator cuff repair Family History Family History Father Heart failure Father Family history of liver disease Diabetes mellitus Family history of kidney disease Mother Family history of diabetes mellitus in first degree relative Diabetes mellitus Family history of renal failure Other Family history of gout Hypertension Social History Social History Social History: the patient has been for many years and lives home alone. 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 He has 2 children code status full code Smoking packs per day: 0.5 Smoking cigarettes per day: 10.0 Years smoked: 5 Smoking pack-years: 2.50 Smoking status: Former smoker Tobacco type: cigarettes Second hand tobacco smoke exposure: Yes Smoking end date: 05/16/17 Alcohol intake: never Drinks per week: 1 Alcohol use details: Occasionally Substance use: never Substance use type: does not use Other substance usage details: alcohol - very rare Lack of Transportation: No Lack of Food: Never True Current Housing: I Have Housing Concerned About Future Housing: No Difficulty Paying Gas/Electric Bills: No Difficulty Paying for Meds: No Currently Unemployed: No Education: High School Diploma/GED Difficulty w/ Childcare or Family Care: No Living arrangements: alone Occupation/Education: retired Gender identity (if verbalized by the patient): Male Sexual Orientation (if Verbalized by the Patient): Straight or Heterosexual Spiritual care concerns: No Exam Narrative: APPEARANCE: No apparent distress. Head: atraumatic. EYES: EOMI, NOSE: Atraumatic NECK: Trachea midline RESPIRATORY: increased rate of breath
[2022-09-23 05:56] LABS: Troponin I 0.114 ng/mL (0.000-0.034)
[2022-09-23 06:10] LABS: Influenza A QL RT-PCR Negative (Negative); Influenza B QL RT-PCR Negative (Negative); RSV RNA, RT-PCR Negative (Negative); SARS-CoV-2 RNA PCR Negative (Negative)
[2022-09-23 06:11] LABS: Alanine Aminotransferase 24 U/L (6-50); Albumin Level 3.8 g/dL (3.5-5.1); Alkaline Phosphatase 52 U/L (38-126); Anion Gap 10 mmol/L (8-16); Aspartate Amino Transferase 31 U/L (17-59); Bilirubin,Total 0.7 mg/dL (0.2-1.3); Blood Urea Nitrogen 64 mg/dL (9-20); Calcium 8.5 mg/dL (8.4-10.2); Carbon Dioxide 27 mmol/L (22-30); Chloride 97 mmol/L (98-107); Estimated CRCL calculation 17 ml/min; Estimated Glomerular Filt Rate 13; Glucose 95 mg/dL (65-110); Potassium 4.1 mmol/L (3.4-5.0); Sodium 134 mmol/L (137-145)
[2022-09-23] MEDS: FUROSEMIDE INJ 100 MG/10 ML VIAL 80 MG IV PUSH (06:16)
[2022-09-23] MEDS: TETANUS,DIPHTHERIA,AC PERTUSSIS ADULT (0.5 ML) BOOSTRIX IM (06:16)
[2022-09-23 06:18] LABS: Band Neutrophils Percent 5 % (0-6); Lymphocytes Absolute Manual 0.15 K/mm3 (1.1-4.5); Lymphocytes Percent Manual 9 % (18-44); Neutrophils Absolute Manual 1.39 K/mm3 (1.3-6.7); Neutrophils Percent Manual 77 % (46-73); Total Cells Counted 100
[2022-09-23 06:19] LABS: Anisocytosis 1+ (NORMAL); Basophils Absolute Manual 0.01 K/mm3 (0.0-0.1); Basophils Percent Manual 1 % (0-1); Eosinophils Absolute Manual 0.03 K/mm3 (0.02-0.5); Eosinophils Percent Manual 2 % (0-4); Macrocytosis 1+ (NORMAL); Monocytes Percent Manual 6 % (3-9); Platelet Estimate Adequate (Adequate); Schistocytes None Seen (NORMAL)
[2022-09-23] MEDS: CEFEPIME 2 GM/NS 50 ML 2 GM/50 ML BAG IVPB (06:41)
[2022-09-23 09:42] LABS: Hepatitis B Surface Antigen Negative (Negative)
[2022-09-23 09:59] LABS: Hepatitis B Surface Anti Res Negative
--- NOTE | 2022-09-23 10:20 | PC.NURSE ---
pt in dialysis.
--- NOTE | 2022-09-23 11:33 | PM.IMHP ---
H&P: HPI History of Present Illness Date/Time: 09/23/22 11:33 Chief Complaint: Fall, weakness Narrative: 82-year-old male with a past medical history of ESRD on dialysis who presented to the ER with complaints of fall. Patient states he woke up this morning around 3:00 a.m. and got up from the bed and walk for 5 steps and fell down because his legs gave up and he felt really weak. There was no dizziness and no loss of consciousness. He scraped his right elbow but no other trauma. Patient states he was having diarrhea off and on for last 2-3 weeks which has now resolved. He also stated that he has been started on some chemotherapy by Nephrology in May this year for his chronic kidney disease. In ER he was found to be leukopenic but otherwise vitals are stable and labs are normal Review of Systems Review of Systems: All systems reviewed & are unremarkable except as noted in HPI and below PMFSH Past Medical History Medical History Aortic stenosis, moderate Atrial fibrillation Atrial fibrillation CHF (congestive heart failure) DJD (degenerative joint disease) Dyspnea due to congestive heart failure Elevated lipids History of DVT (deep vein thrombosis) HLD (hyperlipidemia) HTN (hypertension) Hypertension Insomnia Insomnia Osteoarthritis Rheumatoid arthritis Surgical History Surgical History History of shoulder surgery History of tonsillectomy and adenoidectomy History of total knee replacement History of total knee replacement Status post right rotator cuff repair Family History Family History Father Heart failure Father Family history of liver disease Diabetes mellitus Family history of kidney disease Mother Family history of diabetes mellitus in first degree relative Diabetes mellitus Family history of renal failure Other Family history of gout Hypertension Social History Social History Social History: the patient has been for many years and lives home alone. 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 He has 2 children code status full code Smoking packs per day: 0.5 Smoking cigarettes per day: 10.0 Years smoked: 5 Smoking pack-years: 2.50 Smoking status: Former smoker Tobacco type: cigarettes Second hand tobacco smoke exposure: Yes Smoking end date: 05/16/17 Alcohol intake: never Drinks per week: 1 Alcohol use details: Occasionally Substance use: never Substance use type: does not use Other substance usage details: alcohol - very rare Lack of Transportation: No Lack of Food: Never True Current Housing: I Have Housing Concerned About Future Housing: No Difficulty Paying Gas/Electric Bills: No Difficulty Paying for Meds: No Currently Unemployed: No Education: High School Diploma/GED Difficulty w/ Childcare or Family Care: No Living arrangements: alone Occupation/Education: retired Gender identity (if verbalized by the patient): Male Sexual Orientation (if Verbalized by the Patient): Straight or Heterosexual Spiritual care concerns: No Meds Home Medications and Allergies Home Medications Medication Instructions Recorded Confirmed Type Centrum Men 1 cap PO DAILY 05/16/22 08/28/22 History [place] 3 Fish Oil 1 cap PO DAILY 05/16/22 08/28/22 History Probiotic Blend 1 cap PO DAILY 05/16/22 08/28/22 History apixaban 2.5 mg tablet (Eliquis) 2.5 mg PO Q12HR #60 tabs 06/21/22 07/16/22 Rx famotidine 20 mg tablet 20 mg PO BID #60 tabs 06/22/22 08/28/22 Rx blood pressure monitor #1 ea 07/16/22 08/28/22 Rx metoprolol tartrate 50 mg tablet See Rx Instructions .Route .COMPLEX 07/16/22 08/28/22 History pantoprazole 40 mg tablet,delayed See Rx Instructions .Route 08/16/22 08/28/22 Rx release .COMPLEX #90 tabs
--- NOTE | 2022-09-23 11:35 | PC.NURSE ---
called to dialysis for pump and monitor beeping. iv pump needed to be plugged in due to low battery. quality assurance monitor chassis beeping due to inability to take bp cause pt has rolled to right side. cuff moved to left side.
--- NOTE | 2022-09-23 12:25 | P.CONNP_ITS ---
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 * ?p-ANCA positive -- this would argue in favor of microscopic polyangiitis * s/p pulse dose steroids and on oral prednisone * s/p IV cytoxan (on 06/10/22) and on oral cytoxan * still making urine but BUN + creatinine rise in-between HD treatments * HD today and continue T/T/S schedule for now * the hope is for possible renal recovery but getting dialytic support until this occurs * hold cytoxan due to leukopenia but continue steroids * follow trend of repeat labs and UOP (to assess for potential renal recovery) (2) Chronic kidney disease, stage IV (severe): Code(s): N18.4 - Chronic kidney disease, stage 4 (severe) Status: Chronic Assessment and Plan: * since 2019, creatinine has been running ~ 1.4 - 1.7mg/dl * however, in July 2021, it increased to 1.93mg/dl * then, in March 2022, it was 2.32mg/dl * on discharge in early May 2022, it was 3.3mg/dl * outpatient labs on 05/28/22, creatinine up to 4.4mg/dl * probably has some underlying chronic kidney disease due to HTN, vascular disease/CHF, and age * not clear when microscopic polyangiitis started ... (3) Leukopenia: Code(s): D72.819 - Decreased white blood cell count, unspecified Status: Acute Assessment and Plan: * likely secondary to cytoxan * hold this for now * follow WBC (4) Fall: Code(s): W19.XXXA - Unspecified fall, initial encounter Status: Acute Assessment and Plan: * possibly due to previous diarrhea * r/o infection given immunosuppression * PT/OT as tolerated (5) Hypertension: Code(s): I10 - Essential (primary) hypertension Status: Chronic Assessment and Plan: * reasonable control at this time * follow trend of hemodynamics (6) Atrial fibrillation: Code(s): I48.91 - Unspecified atrial fibrillation Status: Acute Assessment and Plan: * rate control strategy * on metoprolol * on anticoagulation (7) Anemia: Code(s): D64.9 - Anemia, unspecified Status: Chronic Assessment and Plan: * due to RAMIRO, CKD, and dialysis dependence * Epogen with HD * follow H/H I will continue to follow the patient with you while he may need hospitalized and make further recommendations during his hospital course. Thank you for allowing me to participate in the care this patient. History of Present Illness Reason for Consult Consult date: 09/25/22 Reason for consult: acute renal failure (on chronic kidney disease requiring dialysis) Chief Complaint Chief complaint: respiratory failure History of Present Illness Narrative: The patient is an 82-year-old male with a past medical history as outlined below who presented to [facility] Emergency room for further evaluation following a fall. Patient states he woke up this morning around 3:00 a.m. and got up from the bed and walk for 5 steps and fell down because his legs gave out and he felt really weak.? There was no dizziness or no loss of consciousness.? He scraped his right elbow but no other trauma was apparent. Given the severity of his weakness, he presented to the ER for further assessment. Workup and evaluation in the emergency room demonstrated the patient to be hemodynamically stable and in no acute dist
--- NOTE | 2022-09-23 12:25 | PM.CNNEP ---
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 -- this would argue in favor of microscopic polyangiitis s/p pulse dose steroids and on oral prednisone s/p IV cytoxan (on 06/10/22) and on oral cytoxan still making urine but BUN + creatinine rise in-between HD treatments HD today and continue T/T/S schedule for now the hope is for possible renal recovery but getting dialytic support until this occurs hold cytoxan due to leukopenia but continue steroids follow trend of repeat labs and UOP (to assess for potential renal recovery) (2) Chronic kidney disease, stage IV (severe): Code(s): N18.4 - Chronic kidney disease, stage 4 (severe) Status: Chronic Assessment and Plan: since 2019, creatinine has been running ~ 1.4 - 1.7mg/dl however, in July 2021, it increased to 1.93mg/dl then, in March 2022, it was 2.32mg/dl on discharge in early May 2022, it was 3.3mg/dl outpatient labs on 05/28/22, creatinine up to 4.4mg/dl probably has some underlying chronic kidney disease due to HTN, vascular disease/CHF, and age not clear when microscopic polyangiitis started ... (3) Leukopenia: Code(s): D72.819 - Decreased white blood cell count, unspecified Status: Acute Assessment and Plan: likely secondary to cytoxan hold this for now follow WBC (4) Fall: Code(s): W19.XXXA - Unspecified fall, initial encounter Status: Acute Assessment and Plan: possibly due to previous diarrhea r/o infection given immunosuppression PT/OT as tolerated (5) Hypertension: Code(s): I10 - Essential (primary) hypertension Status: Chronic Assessment and Plan: reasonable control at this time follow trend of hemodynamics (6) Atrial fibrillation: Code(s): I48.91 - Unspecified atrial fibrillation Status: Acute Assessment and Plan: rate control strategy on metoprolol on anticoagulation (7) Anemia: Code(s): D64.9 - Anemia, unspecified Status: Chronic Assessment and Plan: due to RAMIRO, CKD, and dialysis dependence Epogen with HD follow H/H I will continue to follow the patient with you while he may need hospitalized and make further recommendations during his hospital course. Thank you for allowing me to participate in the care this patient. History of Present Illness Reason for Consult Consult date: 09/25/22 Reason for consult: acute renal failure (on chronic kidney disease requiring dialysis) Chief Complaint Chief complaint: respiratory failure History of Present Illness Narrative: The patient is an 82-year-old male with a past medical history as outlined below who presented to [facility] Emergency room for further evaluation following a fall. Patient states he woke up this morning around 3:00 a.m. and got up from the bed and walk for 5 steps and fell down because his legs gave out and he felt really weak.? There was no dizziness or no loss of consciousness.? He scraped his right elbow but no other trauma was apparent. Given the severity of his weakness, he presented to the ER for further assessment. Workup and evaluation in the emergency room demonstrated the patient to be hemodynamically stable and in no acute distress. There was no other significant trauma or findings following his. Routine blood test demonstrated labs consistent with his known history of acute kidney injury on top of chronic kidney disease requiring renal placement therapy/dialysis although his CBC did show significant leukopenia. His chest x-ray showed moderate pulmonary edema with a concern for possible pneumonia as well. After appropriate cultures were obtained, he was started on IV antibi
--- NOTE | 2022-09-23 14:42 | ADMGEN ---
This patient, Arthur Cantor Jr., was admitted to IMU Room 231-01. Patient/family oriented to hospital policies and general routines including ID bracelet, bed and alarms, visiting hours, pain management, procedures, bathroom and other care routines, personal items, smoking policy, room service/diet, and visiting hours. Information on how to activate the Rapid Response Team has been discussed. Patient/Family are encouraged to report perceived risks to care and to ask questions if they do not understand what they are told or what they should do.
[2022-09-23 16:49] LABS: Appearance Urine Clear (Clear); Bacteria Urine None Seen /hpf; Bilirubin Urine Negative (Negative); Blood Urine Negative (Negative); Color Urine Dark Yellow (Yellow); Glucose Urine UA Negative (Negative); Ketones Urine Trace mg/dL (Negative); Leukocyte Esterase Ur 1+ LEU/UL (Negative); Nitrate Urine Negative (Negative); Protein Urine 3+ mg/dL (Negative); RBC Urine 0-2 /hpf (0-2); Specific Grav Ur 1.015 (1.001-1.035); Squamous Epithelial Cell Urine None seen /hpf (Few); Urobilinogen Urine 0.2 mg/dL (<2.0)
[2022-09-23 16:52] LABS: Add Urine Microscopic? YES
[2022-09-23] MEDS: PANTOPRAZOLE SODIUM IV 40 MG VIAL IV PUSH (17:03)
[2022-09-23 17:09] LABS: Glucose Point of Care 65 mg/dl (65-105)
[2022-09-23 17:09] LABS: Glucose Point of Care 102 mg/dl (65-105)
[2022-09-23 19:16] LABS: Glucose Point of Care 123 mg/dl (65-105)
[2022-09-23] MEDS: HEPARIN SODIUM 5,000 UNITS/ML VIAL 5000 UNITS SUB-Q (20:29)
[2022-09-23] MEDS: HYDROcodone/acetaminophen (*CRX) 5-325 MG TABLET 1 TAB PO (20:29)
[2022-09-24] VITALS (15 sets, daily range): BP systolic 97–140; BP diastolic 51–84; PULSE 71–127; RESP 18–22; TEMP 36.2–37.2; O2SAT 91–100
[2022-09-24] MEDS: FLUTICASONE PROPIONATE 0.05% NA SPR 16 GM BTL (*BKC) 1 SPRAY NASAL ×3 (00:02→20:50)
[2022-09-24 04:18] LABS: Troponin I 0.152 ng/mL (0.000-0.034)
[2022-09-24] MEDS: HYDROcodone/acetaminophen (*CRX) 5-325 MG TABLET 1 TAB PO ×3 (04:56→22:44)
[2022-09-24 06:14] LABS: Hemoglobin 10.2 g/dL (14.0-18.0); Mean Corpuscular HGB Conc 32.9 g/dl (32-36); Mean Corpuscular Hemoglobin 35.3 pg (26-34); Mean Corpuscular Volume 107.3 fl (80-100); Mean Platelet Volume 10.2 fl (7.4-10.4); Platelet Count Result 122 k/mm3 (150-375); Red Blood Count 2.89 M/mm3 (4.6-6.20); Red Cell Distribution Width 17.2 % (11.5-14.5)
[2022-09-24 06:19] LABS: White Blood Count 1.4 K/mm3 (4.5-10.0)
[2022-09-24 06:21] LABS: Alanine Aminotransferase 21 U/L (6-50); Albumin Level 3.1 g/dL (3.5-5.1); Alkaline Phosphatase 43 U/L (38-126); Anion Gap 6 mmol/L (8-16); Aspartate Amino Transferase 29 U/L (17-59); Bilirubin,Total 0.7 mg/dL (0.2-1.3); Blood Urea Nitrogen 38 mg/dL (9-20); Calcium 7.9 mg/dL (8.4-10.2); Carbon Dioxide 29 mmol/L (22-30); Chloride 98 mmol/L (98-107); Estimated CRCL calculation 24 ml/min; Estimated Glomerular Filt Rate 19; Glucose 101 mg/dL (65-110); Magnesium 1.8 mg/dL (1.6-2.3); Potassium 4.4 mmol/L (3.4-5.0); Sodium 133 mmol/L (137-145)
[2022-09-24] MEDS: HEPARIN SODIUM 5,000 UNITS/ML VIAL 5000 UNITS SUB-Q ×2 (10:19→20:50)
[2022-09-24] MEDS: PANTOPRAZOLE SODIUM IV 40 MG VIAL IV PUSH (10:20)
--- NOTE | 2022-09-24 12:17 | PM.IMPN ---
Progress Note: A&P Assessment and Plan (1) Fall: Code(s): W19.XXXA - Unspecified fall, initial encounter Status: Acute Assessment and Plan: Status post fall and generalized weakness. Likely secondary to recent diarrhea and dehydration and also being on chemotherapy causing him to be immunosuppressed. His diarrhea has resolved now. We will consult PT and OT. Patient does not want to go to rehab but we told him that that may be his only option given his profound weakness (2) ESRD (end stage renal disease) on dialysis: Code(s): N18.6 - End stage renal disease; Z99.2 - Dependence on renal dialysis Status: Acute Assessment and Plan: Nephrology consulted. Patient receiving dialysis (3) Leukopenia: Code(s): D72.819 - Decreased white blood cell count, unspecified Status: Acute Assessment and Plan: Likely secondary to chemo therapy. He has been started on antibiotics by ED. will continue same for now. (4) Hypertension: Code(s): I10 - Essential (primary) hypertension Status: Chronic Assessment and Plan: Resume home meds (5) Diarrhea: Qualifiers: Diarrhea type: unspecified type Qualified Code(s): R19.7 - Diarrhea, unspecified Code(s): R19.7 - Diarrhea, unspecified Status: Acute Assessment and Plan: Resolved Subjective Date/time seen: 09/24/22 12:17 Interval history: Patient states he feels weak Review of Systems Review of Systems: All systems reviewed & are unremarkable except as noted in HPI and below Exam Narrative: APPEARANCE: No apparent distress. Head: atraumatic. EYES: EOMI, NOSE: Atraumatic NECK: Trachea midline RESPIRATORY: increased rate of breathing, bibasilar crackles, hypoxic on room air CARDIOVASCULAR: RRR, +3 pitting edema of lower extremities - patient states this is chronic, and dialysis access in the right anterior chest wall ABDOMINAL: Non-distended, soft non-tender, MUSCULOSKELETAl: No obvious deformities NEURO: Alert. Cranial nerves 2-12 grossly intact. Sensation light touch, motor function cerebellar function intact for 4 extremities. Gait exam was Deferred. SKIN:: Warm, dry. Normal color PSYCHIATRIC: Normal affect Objective Data Vital Signs Vital Signs: Vital Signs - 24 hr 09/23/22 12:20 09/23/22 12:40 09/23/22 13:00 Temperature Pulse Rate 92 98 94 Respiratory Rate 22 H Blood Pressure 108/86 107/91 H 110/83 Pulse Oximetry 99 Oxygen Delivery Oxygen Flow Rate 09/23/22 15:04 09/23/22 14:45 09/23/22 17:00 Temperature 97.4 F L 97.4 F L 99.3 F Pulse Rate 9 L 99 98 Respiratory Rate 20 20 22 H Blood Pressure 124/90 124/90 137/82 Pulse Oximetry 96 96 94 Oxygen Delivery Oxygen Flow Rate 09/23/22 13:00 09/23/22 13:20 09/23/22 13:40 Temperature Pulse Rate 98 95 93 Respiratory Rate Blood Pressure 116/87 108/85 109/79 Pulse Oximetry Oxygen Delivery Oxygen Flow Rate 09/23/22 14:00 09/23/22 14:06 09/23/22 14:12 Temperature 98.6 F Pulse Rate 91 100 100 Respiratory Rate 22 H Blood Pressure 113/86 126/76 128/94 H Pulse Oximetry 94 Oxygen Delivery Oxygen Flow Rate 09/23/22 16:00 09/23/22 16:00 09/23/22 18:00 Temperature Pulse Rate 104 H 99 Respiratory Rate Blood Pressure Pulse Oximetry 95 Oxygen Delivery Nasal Cannula Oxygen Flow Rate 2 09/23/22 20:00 09/23/22 20:00 09/24/22 00:00 Temperature 98.6 F 97.9 F Pulse Rate 113 H 106 H 105 H Respiratory Rate 22 H 22 H Blood Pressure 137/88 120/56 L Pulse Oximetry 96 91 Oxygen Delivery Oxygen Flow Rate 09/23/22 22:00 09/24/22 00:00 09/24/22 02:00 Temperature Pulse Rate 101 H 102 H 99 Respiratory Rate Blood Pressure Pulse Oximetry Oxygen Delivery Oxygen Flow Rate 09/24/22 04:00 09/24/22 04:00 09/24/22 06:00 Temperature 97.7 F Pulse Rate 86 95 105 H Respiratory Rate 22 H Blood Pr
--- NOTE | 2022-09-24 12:55 | PM.PNNEP ---
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 -- this would argue in favor of microscopic polyangiitis s/p pulse dose steroids and on oral prednisone s/p IV cytoxan (on 06/10/22) and on oral cytoxan still making urine but BUN + creatinine rise in-between HD treatments HD today and continue T/T/S schedule for now the hope is for possible renal recovery but getting dialytic support until this occurs hold cytoxan due to leukopenia but continue steroids follow trend of repeat labs and UOP (to assess for potential renal recovery) (2) Chronic kidney disease, stage IV (severe): Code(s): N18.4 - Chronic kidney disease, stage 4 (severe) Status: Chronic Assessment and Plan: since 2019, creatinine has been running ~ 1.4 - 1.7mg/dl however, in July 2021, it increased to 1.93mg/dl then, in March 2022, it was 2.32mg/dl on discharge in early May 2022, it was 3.3mg/dl outpatient labs on 05/28/22, creatinine up to 4.4mg/dl probably has some underlying chronic kidney disease due to HTN, vascular disease/CHF, and age not clear when microscopic polyangiitis started ... (3) Leukopenia: Code(s): D72.819 - Decreased white blood cell count, unspecified Status: Acute Assessment and Plan: likely secondary to cytoxan hold this for now follow WBC (4) Bacteremia: Code(s): R78.81 - Bacteremia Status: Acute Assessment and Plan: noted but only 1 out of 2 sets -- contamination follow repeat cultures on antibiotics (5) Fall: Code(s): W19.XXXA - Unspecified fall, initial encounter Status: Acute Assessment and Plan: possibly due to previous diarrhea r/o infection given immunosuppression PT/OT as tolerated (6) Hypertension: Code(s): I10 - Essential (primary) hypertension Status: Chronic Assessment and Plan: reasonable control at this time follow trend of hemodynamics (7) Atrial fibrillation: Code(s): I48.91 - Unspecified atrial fibrillation Status: Acute Assessment and Plan: rate control strategy on metoprolol on anticoagulation (8) Anemia: Code(s): D64.9 - Anemia, unspecified Status: Chronic Assessment and Plan: due to RAMIRO, CKD, and dialysis dependence Epogen with HD follow H/H Will continue to follow. Subjective Date/time seen: 09/24/22 12:55 Interval history: Follow-up for RAMIRO on CKD requiring renal replacement therapy/hemodialysis. Tolerated dialysis treatment yesterday without any issues or problems; still feels weak and fatigued at the time of my visit; no acute distress noted; no issues/events overnight or earlier this AM. Exam Narrative: General: WD/WN elderly male in NAD Heart: normal S1 and S2; no rub Lungs: clear anteriorly and coarse at bases Abdomen: soft, nontender, nondistended, positive bowel sounds Extremities: 1+ edema noted Skin: warm and dry Objective Data Vital Signs Vital Signs: Vital Signs Temp Pulse Resp BP Pulse Ox O2 Del Method O2 Flow Rate 09/24/22 10:00 95 09/24/22 10:46 Nasal Cannula 2 09/24/22 08:00 124 H 09/24/22 08:00 97.1 F L 107 H 18 97/72 L 94 09/24/22 06:00 105 H 09/24/22 04:00 95 09/24/22 04:00 97.7 F 86 22 H 140/71 100 09/24/22 02:00 99 09/24/22 00:00 102 H 09/23/22 22:00 101 H 09/24/22 00:00 97.9 F 105 H 22 H 120/56 L 91 09/23/22 20:00 106 H 09/23/22 20:00 98.6 F 113 H 22 H 137/88 96 09/23/22 18:00 99 Intake/Output Intake/Output: Intake & Output 09/21/22 09/22/22 09/23/22 09/24/22 23:59 23:59 23:59 23:59 Intake Total 8770 480
--- NOTE | 2022-09-24 12:55 | P.PNNP_ITS ---
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 in favor of microscopic polyangiitis * s/p pulse dose steroids and on oral prednisone * s/p IV cytoxan (on 06/10/22) and on oral cytoxan * still making urine but BUN + creatinine rise in-between HD treatments * HD today and continue T/T/S schedule for now * the hope is for possible renal recovery but getting dialytic support until this occurs * hold cytoxan due to leukopenia but continue steroids * follow trend of repeat labs and UOP (to assess for potential renal recovery) (2) Chronic kidney disease, stage IV (severe): Code(s): N18.4 - Chronic kidney disease, stage 4 (severe) Status: Chronic Assessment and Plan: * since 2019, creatinine has been running ~ 1.4 - 1.7mg/dl * however, in July 2021, it increased to 1.93mg/dl * then, in March 2022, it was 2.32mg/dl * on discharge in early May 2022, it was 3.3mg/dl * outpatient labs on 05/28/22, creatinine up to 4.4mg/dl * probably has some underlying chronic kidney disease due to HTN, vascular d isease/CHF, and age * not clear when microscopic polyangiitis started ... (3) Leukopenia: Code(s): D72.819 - Decreased white blood cell count, unspecified Status: Acute Assessment and Plan: * likely secondary to cytoxan * hold this for now * follow WBC (4) Bacteremia: Code(s): R78.81 - Bacteremia Status: Acute Assessment and Plan: * noted but only 1 out of 2 sets -- contamination * follow repeat cultures * on antibiotics (5) Fall: Code(s): W19.XXXA - Unspecified fall, initial encounter Status: Acute Assessment and Plan: * possibly due to previous diarrhea * r/o infection given immunosuppression * PT/OT as tolerated (6) Hypertension: Code(s): I10 - Essential (primary) hypertension Status: Chronic Assessment and Plan: * reasonable control at this time * follow trend of hemodynamics (7) Atrial fibrillation: Code(s): I48.91 - Unspecified atrial fibrillation Status: Acute Assessment and Plan: * rate control strategy * on metoprolol * on anticoagulation (8) Anemia: Code(s): D64.9 - Anemia, unspecified Status: Chronic Assessment and Plan: * due to RAMIRO, CKD, and dialysis dependence * Epogen with HD * follow H/H Will continue to follow. Subjective Date/time seen: 09/24/22 12:55 Interval history: Follow-up for RAMIRO on CKD requiring renal replacement therapy/hemodialysis. Tolerated dialysis treatment yesterday without any issues or problems; still feels weak and fatigued at the time of my visit; no acute distress noted; no issues/events overnight or earlier this AM. Exam Narrative: General: WD/WN elderly male in NAD Heart: normal S1 and S2; no rub Lungs: clear anteriorly and coarse at bases Abdomen: soft, nontender, nondistended, positive bowel sounds Extremities: 1+ edema noted Skin: warm and dry Objective Data Vital Signs Vital Signs: Vital Signs Temp Pulse Resp BP Pulse Ox O2 Del Method O2 Flow Rate 09/24/22
[2022-09-24] MEDS: CEFEPIME 1 GM/NS 50 ML 1 GM/50 ML BAG IVPB (16:17)
[2022-09-24] MEDS: METOPROLOL TARTRATE 50 MG TAB PO (17:28)
[2022-09-25] VITALS (24 sets, daily range): BP systolic 100–144; BP diastolic 60–113; PULSE 73–123; RESP 16–20; TEMP 35.6–37.2; O2SAT 90–96
[2022-09-25] MEDS: AZITHROMYCIN 500 MG/NS 250 ML 500 MG/250 ML BAG 250 MG IVPB (05:55)
[2022-09-25] MEDS: HYDROcodone/acetaminophen (*CRX) 5-325 MG TABLET 1 TAB PO ×2 (05:55→15:21)
[2022-09-25 09:10] LABS: Estimated Glomerular Filt Rate 15
[2022-09-25 10:23] LABS: Hematocrit 34.3 % (42.0-52.0); Hemoglobin 11.1 g/dL (14.0-18.0); Mean Corpuscular HGB Conc 32.4 g/dl (32-36); Mean Corpuscular Hemoglobin 34.5 pg (26-34); Mean Corpuscular Volume 106.5 fl (80-100); Mean Platelet Volume 9.8 fl (7.4-10.4); Platelet Count Result 123 k/mm3 (150-375); Red Blood Count 3.22 M/mm3 (4.6-6.20); Red Cell Distribution Width 16.7 % (11.5-14.5); White Blood Count 2.1 K/mm3 (4.5-10.0)
[2022-09-25 10:31] LABS: Partial Thromboplastin Time 29.6 SECONDS (22.3-36.8); Prothrombin Time 13.9 Seconds (11.1-14.7)
[2022-09-25 10:42] LABS: Albumin Level 3.4 g/dL (3.5-5.1); Blood Urea Nitrogen 42 mg/dL (9-20)
[2022-09-25 10:43] LABS: Carbon Dioxide 31 mmol/L (22-30); Estimated CRCL calculation 19 ml/min; Glucose 105 mg/dL (65-110); Phosphorus 5.2 mg/dL (2.5-4.5)
[2022-09-25 10:44] LABS: Anion Gap 5 mmol/L (8-16); Chloride 97 mmol/L (98-107); Potassium 4.1 mmol/L (3.4-5.0); Sodium 133 mmol/L (137-145)
[2022-09-25] MEDS: PANTOPRAZOLE SODIUM IV 40 MG VIAL IV PUSH (11:05)
[2022-09-25] MEDS: METOPROLOL TARTRATE 50 MG TAB PO ×2 (11:05→20:30)
[2022-09-25] MEDS: FLUTICASONE PROPIONATE 0.05% NA SPR 16 GM BTL (*BKC) 1 SPRAY NASAL ×2 (11:06→20:30)
--- NOTE | 2022-09-25 11:14 | PM.IMPN ---
Progress Note: A&P Assessment and Plan (1) Fall: Code(s): W19.XXXA - Unspecified fall, initial encounter Status: Acute Assessment and Plan: Status post fall and generalized weakness. Likely secondary to recent diarrhea and dehydration and also being on chemotherapy causing him to be immunosuppressed. His diarrhea has resolved now. We will consult PT and OT. Patient does not want to go to rehab. Home health will be arranged (2) ESRD (end stage renal disease) on dialysis: Code(s): N18.6 - End stage renal disease; Z99.2 - Dependence on renal dialysis Status: Acute Assessment and Plan: Nephrology consulted. Patient receiving dialysis his dialysis catheter came out this morning during dialysis. We will consult in the surgery for replacing the dialysis catheter. Chest x-ray was obtained at the time and I personally reviewed and did not see any pneumothorax. Will check with Nephrology when to resume dialysis (3) Leukopenia: Code(s): D72.819 - Decreased white blood cell count, unspecified Status: Acute Assessment and Plan: Likely secondary to chemo therapy. He has been started on antibiotics by ED. will continue same for now. (4) Hypertension: Code(s): I10 - Essential (primary) hypertension Status: Chronic Assessment and Plan: Resume home meds (5) Diarrhea: Qualifiers: Diarrhea type: unspecified type Qualified Code(s): R19.7 - Diarrhea, unspecified Code(s): R19.7 - Diarrhea, unspecified Status: Acute Assessment and Plan: Resolved Subjective Date/time seen: 09/25/22 11:14 Interval history: patient seen during dialysis. During dialysis his tunneled catheter came out and patient had some bleeding on the site. Hemostasis was achieved by applying pressure. Review of Systems Review of Systems: All systems reviewed & are unremarkable except as noted in HPI and below Exam Narrative: General: WD/WN elderly male in NAD Heart: normal S1 and S2; no rub Lungs: clear anteriorly and coarse at bases Abdomen: soft, nontender, nondistended, positive bowel sounds Extremities: 1+ edema noted Skin: warm and dry Objective Data Vital Signs Vital Signs: Vital Signs - 24 hr 09/24/22 12:00 09/24/22 17:28 09/24/22 16:00 Temperature 97.5 F L 98.9 F Pulse Rate 115 H 127 H 121 H Respiratory Rate 18 20 Blood Pressure 132/84 107/68 Pulse Oximetry 91 96 Oxygen Delivery Oxygen Flow Rate 09/24/22 12:00 09/24/22 14:00 09/24/22 16:00 Temperature Pulse Rate 117 H 113 H 120 H Respiratory Rate Blood Pressure Pulse Oximetry Oxygen Delivery Oxygen Flow Rate 09/24/22 18:00 09/24/22 20:00 09/24/22 20:00 Temperature 97.6 F Pulse Rate 126 H 71 Respiratory Rate 20 Blood Pressure 98/74 L Pulse Oximetry 97 Oxygen Delivery Room Air Oxygen Flow Rate 09/24/22 20:00 09/24/22 22:00 09/24/22 23:22 Temperature Pulse Rate 89 91 Respiratory Rate Blood Pressure Pulse Oximetry Oxygen Delivery Room Air Oxygen Flow Rate 09/24/22 23:42 09/25/22 00:00 09/25/22 02:00 Temperature 97.6 F Pulse Rate 106 H 106 H 101 H Respiratory Rate 20 Blood Pressure 100/51 L Pulse Oximetry 98 Oxygen Delivery Oxygen Flow Rate 09/25/22 04:00 09/25/22 04:00 09/25/22 04:00 Temperature 96.4 F L Pulse Rate 104 H 106 H Respiratory Rate 20 Blood Pressure 129/65 Pulse Oximetry 93 Oxygen Delivery Room Air Oxygen Flow Rate 09/25/22 06:00 09/25/22 08:00 09/25/22 08:16 Temperature 97.7 F Pulse Rate 116 H 106 H 100 Respiratory Rate 16 Blood Pressure 111/93 H 129/73 Pulse Oximetry 92 Oxygen Delivery Oxygen Flow Rate 09/25/22 08:30 09/25/22 08:00 09/25/22 08:05 Temperature 98.3 F Pulse Rate 108 H 79 Respiratory Rate 19 Blood Pressure 117/77 144/113 H Pulse Oximetry Oxygen Delivery Oxygen
--- NOTE | 2022-09-25 12:11 | PM.CNGS ---
Assessment and Plan Assessment and plan (1) ESRD (end stage renal disease) on dialysis: Code(s): N18.6 - End stage renal disease; Z99.2 - Dependence on renal dialysis Status: Acute Assessment and Plan: will setup for replacement of TDC on Tuesday, Ricardo History of Present Illness Consult details Consult date: 09/25/22 Reason for consult: central line Requesting physician: Jaylon Stringer MD Narrative: The patient is an 82-year-old male with multiple medical issues, including end-stage renal disease requiring hemodialysis, that had his tunneled hemodialysis catheter accidentally removed during the hemodialysis today. The patient had approximately 90 minutes of his scheduled hemodialysis today before the dialysis catheter became accidentally dislodged. The patient had this catheter placed approximately 3 months ago and denies any previous issues with the catheter itself. Review of Systems Constitutional: Constitutional: Reports daytime sleepiness, Reports fatigue, Reports lethargy, Reports malaise, Reports poor appetite and Reports weakness Eyes: Eyes: Reports no additional eye complaints ENT: Reports system reviewed and no additional complaints, except as documented Cardiovascular: Cardiovascular: Reports no additional cardiovascular complaints Respiratory: Respiratory: Reports no additional respiratory complaints Gastrointestinal: Gastrointestinal: Reports no additional gastrointestinal complaints Genitourinary: Genitourinary: Reports as per HPI Musculoskeletal: Musculoskeletal: Reports no additional musculoskeletal complaints Integumentary/Breasts: Skin/Breast: Reports system reviewed and no additional complaints, except as docu Neurologic: Reports system reviewed and no additional complaints, except as documented Psychiatric: Psychiatric: Reports no additional psychiatric complaints Endocrine: Endocrine: Reports no additional endocrine complaints Hematologic/Lymphatic: Hematologic/Lymphatic: Reports no additional hematologic/lymphatic complaints Allergic/Immunologic: Allergic/Immunologic: Reports no additional allergic/immunologic complaints [facility] Past Medical History Medical History Aortic stenosis, moderate Atrial fibrillation Atrial fibrillation CHF (congestive heart failure) DJD (degenerative joint disease) Dyspnea due to congestive heart failure Elevated lipids History of DVT (deep vein thrombosis) HLD (hyperlipidemia) HTN (hypertension) Hypertension Insomnia Insomnia Osteoarthritis Rheumatoid arthritis Surgical History Surgical History History of shoulder surgery History of tonsillectomy and adenoidectomy History of total knee replacement History of total knee replacement Status post right rotator cuff repair Family History Family History Father Heart failure Father Family history of liver disease Diabetes mellitus Family history of kidney disease Mother Family history of diabetes mellitus in first degree relative Diabetes mellitus Family history of renal failure Other Family history of gout Hypertension Social History Social History Social History: the patient has been for many years and lives home alone. 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 He has 2 children code status full code Smoking packs per day: 0.5 Smoking cigarettes per day: 10.0 Years smoked: 15 Smoking pack-years: 7.50 Smoking status: Former smoker Tobacco type: cigarettes Second hand tobacco smoke exposure: Yes Smoking end date: 05/16/17 Alcohol intake: never Drinks per week: 0 Alcohol use details: Occasionally Substance use: never Substance use type: does not use Other substance usage details: alcohol - very rare Lack
[2022-09-25] MEDS: predniSONE 10 MG TABLET PO ×2 (12:31→18:25)
--- NOTE | 2022-09-25 14:50 | P.PNNP_ITS ---
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 in favor of microscopic polyangiitis * s/p pulse dose steroids and on oral prednisone * s/p IV cytoxan (on 06/10/22) and on oral cytoxan * still making urine but BUN + creatinine rise in-between HD treatments * HD today and continue T/T/S schedule for now * the hope is for possible renal recovery but getting dialytic support until this occurs * hold cytoxan due to leukopenia but continue steroids * follow trend of repeat labs and UOP (to assess for potential renal recovery) (2) Chronic kidney disease, stage IV (severe): Code(s): N18.4 - Chronic kidney disease, stage 4 (severe) Status: Chronic Assessment and Plan: * since 2019, creatinine has been running ~ 1.4 - 1.7mg/dl * however, in July 2021, it increased to 1.93mg/dl * then, in March 2022, it was 2.32mg/dl * on discharge in early May 2022, it was 3.3mg/dl * outpatient labs on 05/28/22, creatinine up to 4.4mg/dl * probably has some underlying chronic kidney disease due to HTN, vascular d isease/CHF, and age * not clear when microscopic polyangiitis started ... (3) Leukopenia: Code(s): D72.819 - Decreased white blood cell count, unspecified Status: Acute Assessment and Plan: * likely secondary to cytoxan * hold this for now * follow WBC (4) Bacteremia: Code(s): R78.81 - Bacteremia Status: Acute Assessment and Plan: * noted but only 1 out of 2 sets -- contamination * follow repeat cultures * on Zithromax and ceftriaxone. * no fever (5) Fall: Code(s): W19.XXXA - Unspecified fall, initial encounter Status: Acute Assessment and Plan: * possibly due to previous diarrhea * r/o infection given immunosuppression * PT/OT as tolerated (6) Hypertension: Code(s): I10 - Essential (primary) hypertension Status: Chronic Assessment and Plan: * systolic ranging from 110-133. * follow trend of hemodynamics (7) Atrial fibrillation: Code(s): I48.91 - Unspecified atrial fibrillation Status: Acute Assessment and Plan: * rate control strategy * on metoprolol * on anticoagulation (8) Anemia: Code(s): D64.9 - Anemia, unspecified Status: Chronic Assessment and Plan: * due to RAMIRO, CKD, and dialysis dependence * Epogen with HD * follow H/H. Hemoglobin good today. Will check again tomorrow considering the catheter issue. Will continue to follow. Subjective Date/time seen: 09/25/22 14:50 Interval history: patient's catheter came out during dialysis. There was some blood, possibly what was in the tubing rather than what came out of his chest. He is feeling okay now. He slept well last night. Exam Narrative: General: WD/WN elderly male in NAD Heart: normal S1 and S2; Irregular irregular rhythm no rub or gallop Lungs: clear anteriorly and coarse at bases Abdomen: soft, nontender, nondistended, positive bowel sounds Extremities: 1+ edema noted Skin: No rash Objective Data Vital Signs Vital Signs: Vital Signs - 24 hr 09/24/22 17:28 09/24/22 16:00 05
--- NOTE | 2022-09-25 14:50 | PM.PNNEP ---
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 -- this would argue in favor of microscopic polyangiitis s/p pulse dose steroids and on oral prednisone s/p IV cytoxan (on 06/10/22) and on oral cytoxan still making urine but BUN + creatinine rise in-between HD treatments HD today and continue T/T/S schedule for now the hope is for possible renal recovery but getting dialytic support until this occurs hold cytoxan due to leukopenia but continue steroids follow trend of repeat labs and UOP (to assess for potential renal recovery) (2) Chronic kidney disease, stage IV (severe): Code(s): N18.4 - Chronic kidney disease, stage 4 (severe) Status: Chronic Assessment and Plan: since 2019, creatinine has been running ~ 1.4 - 1.7mg/dl however, in July 2021, it increased to 1.93mg/dl then, in March 2022, it was 2.32mg/dl on discharge in early May 2022, it was 3.3mg/dl outpatient labs on 05/28/22, creatinine up to 4.4mg/dl probably has some underlying chronic kidney disease due to HTN, vascular disease/CHF, and age not clear when microscopic polyangiitis started ... (3) Leukopenia: Code(s): D72.819 - Decreased white blood cell count, unspecified Status: Acute Assessment and Plan: likely secondary to cytoxan hold this for now follow WBC (4) Bacteremia: Code(s): R78.81 - Bacteremia Status: Acute Assessment and Plan: noted but only 1 out of 2 sets -- contamination follow repeat cultures on Zithromax and ceftriaxone. no fever (5) Fall: Code(s): W19.XXXA - Unspecified fall, initial encounter Status: Acute Assessment and Plan: possibly due to previous diarrhea r/o infection given immunosuppression PT/OT as tolerated (6) Hypertension: Code(s): I10 - Essential (primary) hypertension Status: Chronic Assessment and Plan: systolic ranging from 110-133. follow trend of hemodynamics (7) Atrial fibrillation: Code(s): I48.91 - Unspecified atrial fibrillation Status: Acute Assessment and Plan: rate control strategy on metoprolol on anticoagulation (8) Anemia: Code(s): D64.9 - Anemia, unspecified Status: Chronic Assessment and Plan: due to RAMIRO, CKD, and dialysis dependence Epogen with HD follow H/H. Hemoglobin good today. Will check again tomorrow considering the catheter issue. Will continue to follow. Subjective Date/time seen: 09/25/22 14:50 Interval history: patient's catheter came out during dialysis. There was some blood, possibly what was in the tubing rather than what came out of his chest. He is feeling okay now. He slept well last night. Exam Narrative: General: WD/WN elderly male in NAD Heart: normal S1 and S2; Irregular irregular rhythm no rub or gallop Lungs: clear anteriorly and coarse at bases Abdomen: soft, nontender, nondistended, positive bowel sounds Extremities: 1+ edema noted Skin: No rash Objective Data Vital Signs Vital Signs: Vital Signs - 24 hr 09/24/22 17:28 09/24/22 16:00 09/24/22 16:00 Temperature 98.9 F Pulse Rate 127 H 121 H 120 H Respiratory Rate 20 Blood Pressure 107/68 Pulse Oximetry 96 Oxygen Delivery Oxygen Flow Rate 09/24/22 18:00 09/24/22 20:00 09/24/22 20:00 Temperature 97.6 F Pulse Rate 126 H 71 Respiratory Rate 20 Blood Pressure 98/74 L Pulse Oximetry 97 Oxygen Delivery Room Air Oxygen Flow Rate 09/24/22 20:00 09/24/22 22:00 09/24/22 23:22 Temperature Pulse Rate 89 91 Respiratory Rate Blood Pressure Pulse Oximetry Oxygen Delivery Room Air Oxygen Flow Rate 09/24/22
[2022-09-25] MEDS: CEFEPIME 1 GM/NS 50 ML 1 GM/50 ML BAG IVPB (15:21)
[2022-09-25] MEDS: HEPARIN SODIUM 5,000 UNITS/ML VIAL 5000 UNITS SUB-Q (20:30)
[2022-09-25] MEDS: NEOMYCIN/POLYMYXIN/BACITRACIN OINTMENT PACKET 1 PACKET (20:32)
[2022-09-26] VITALS (12 sets, daily range): BP systolic 90–118; BP diastolic 57–81; PULSE 71–95; RESP 18–22; TEMP 35.8–36.4; O2SAT 90–100
[2022-09-26 04:40] LABS: Hematocrit 30.4 % (42.0-52.0); Hemoglobin 10.1 g/dL (14.0-18.0); Mean Corpuscular HGB Conc 33.2 g/dl (32-36); Mean Corpuscular Hemoglobin 34.8 pg (26-34); Mean Corpuscular Volume 104.8 fl (80-100); Mean Platelet Volume 10.6 fl (7.4-10.4); Platelet Count Result 108 k/mm3 (150-375); Red Cell Distribution Width 16.1 % (11.5-14.5); White Blood Count 2.4 K/mm3 (4.5-10.0)
[2022-09-26 04:52] LABS: Albumin Level 3.1 g/dL (3.5-5.1); Anion Gap 11 mmol/L (8-16); Blood Urea Nitrogen 52 mg/dL (9-20); Calcium 8.1 mg/dL (8.4-10.2); Carbon Dioxide 25 mmol/L (22-30); Chloride 97 mmol/L (98-107); Estimated CRCL calculation 15 ml/min; Estimated Glomerular Filt Rate 11; Glucose 108 mg/dL (65-110); Phosphorus 7.3 mg/dL (2.5-4.5); Potassium 4.3 mmol/L (3.4-5.0); Sodium 133 mmol/L (137-145)
[2022-09-26] MEDS: AZITHROMYCIN 500 MG/NS 250 ML 500 MG/250 ML BAG 250 MG IVPB (05:45)
[2022-09-26] MEDS: predniSONE 10 MG TABLET PO ×2 (08:30→17:11)
[2022-09-26] MEDS: PANTOPRAZOLE SODIUM IV 40 MG VIAL IV PUSH (08:30)
[2022-09-26] MEDS: FLUTICASONE PROPIONATE 0.05% NA SPR 16 GM BTL (*BKC) 1 SPRAY NASAL ×2 (08:30→21:01)
[2022-09-26] MEDS: HEPARIN SODIUM 5,000 UNITS/ML VIAL 5000 UNITS SUB-Q ×2 (08:34→21:01)
[2022-09-26] MEDS: METOPROLOL TARTRATE 50 MG TAB PO ×2 (09:26→21:01)
--- NOTE | 2022-09-26 10:02 | P.PNNP_ITS ---
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 The creatinine nancy from 3.9-4.9. * HD Will be done tomorrow if there is enough time after catheter placement and then resume Tuesday schedule * the hope is for possible renal recovery but getting dialytic support until this occurs * hold cytoxan due to leukopenia and thrombocytopenia, but continue steroids * follow trend of repeat labs and UOP (to assess for potential renal recovery) (2) Chronic kidney disease, stage IV (severe): Code(s): N18.4 - Chronic kidney disease, stage 4 (severe) Status: Chronic Assessment and Plan: * since 2019, creatinine has been running ~ 1.4 - 1.7mg/dl * however, in July 2021, it increased to 1.93mg/dl * then, in March 2022, it was 2.32mg/dl * on discharge in early May 2022, it was 3.3mg/dl * outpatient labs on 05/28/22, creatinine up to 4.4mg/dl * probably has some underlying chronic kidney disease due to HTN, vascular disease/CHF, and age * not clear when microscopic polyangiitis started ... (3) Leukopenia: Code(s): D72.819 - Decreased white blood cell count, unspecified Status: Acute Assessment and Plan: * likely secondary to cytoxan * hold this for now * follow WBC (4) Bacteremia: Code(s): R78.81 - Bacteremia Status: Acute Assessment and Plan: * noted but only 1 out of 2 sets -- contamination * follow repeat cultures * on Zithromax and ceftriaxone. * no fever (5) Fall: Code(s): W19.XXXA - Unspecified fall, initial encounter Status: Acute Assessment and Plan: * possibly due to previous diarrhea * r/o infection given immunosuppression * PT/OT as tolerated (6) Hypertension: Code(s): I10 - Essential (primary) hypertension Status: Chronic Assessment and Plan: * systolic ranging from 100 to 120 * follow trend of hemodynamics (7) Atrial fibrillation: Code(s): I48.91 - Unspecified atrial fibrillation Status: Acute Assessment and Plan: * rate control strategy * on metoprolol * on anticoagulation (8) Anemia: Code(s): D64.9 - Anemia, unspecified Status: Chronic Assessment and Plan: * due to RAMIRO, CKD, and dialysis dependence * Epogen with HD * follow H/H. Hemoglobin good today. Will check again tomorrow considering the catheter issue. * Will continue to follow. Subjective Date/time seen: 09/26/22 10:02 Interval history: Patient is up in a chair. He feels okay. Dressing was changed last night because he sweated the tape off and no more bleeding. Ate a good breakfast. Exam Narrative: General: WD/WN elderly male in NAD Heart: normal S1 and S2; Irregular irregular rhythm no rub or gallop Lungs: clear bilaterally Abdomen: soft, nontender, nondistended, positive bowel sounds Extremities: 1+ edema noted Skin: No rash Or subcu nodules Objective Data Vital Signs Vi
--- NOTE | 2022-09-26 10:02 | PM.PNNEP ---
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 The creatinine nancy from 3.9-4.9. HD Will be done tomorrow if there is enough time after catheter placement and then resume Tuesday schedule the hope is for possible renal recovery but getting dialytic support until this occurs hold cytoxan due to leukopenia and thrombocytopenia, but continue steroids follow trend of repeat labs and UOP (to assess for potential renal recovery) (2) Chronic kidney disease, stage IV (severe): Code(s): N18.4 - Chronic kidney disease, stage 4 (severe) Status: Chronic Assessment and Plan: since 2019, creatinine has been running ~ 1.4 - 1.7mg/dl however, in July 2021, it increased to 1.93mg/dl then, in March 2022, it was 2.32mg/dl on discharge in early May 2022, it was 3.3mg/dl outpatient labs on 05/28/22, creatinine up to 4.4mg/dl probably has some underlying chronic kidney disease due to HTN, vascular disease/CHF, and age not clear when microscopic polyangiitis started ... (3) Leukopenia: Code(s): D72.819 - Decreased white blood cell count, unspecified Status: Acute Assessment and Plan: likely secondary to cytoxan hold this for now follow WBC (4) Bacteremia: Code(s): R78.81 - Bacteremia Status: Acute Assessment and Plan: noted but only 1 out of 2 sets -- contamination follow repeat cultures on Zithromax and ceftriaxone. no fever (5) Fall: Code(s): W19.XXXA - Unspecified fall, initial encounter Status: Acute Assessment and Plan: possibly due to previous diarrhea r/o infection given immunosuppression PT/OT as tolerated (6) Hypertension: Code(s): I10 - Essential (primary) hypertension Status: Chronic Assessment and Plan: systolic ranging from 100 to 120 follow trend of hemodynamics (7) Atrial fibrillation: Code(s): I48.91 - Unspecified atrial fibrillation Status: Acute Assessment and Plan: rate control strategy on metoprolol on anticoagulation (8) Anemia: Code(s): D64.9 - Anemia, unspecified Status: Chronic Assessment and Plan: due to RAMIRO, CKD, and dialysis dependence Epogen with HD follow H/H. Hemoglobin good today. Will check again tomorrow considering the catheter issue. Will continue to follow. Subjective Date/time seen: 09/26/22 10:02 Interval history: Patient is up in a chair. He feels okay. Dressing was changed last night because he sweated the tape off and no more bleeding. Ate a good breakfast. Exam Narrative: General: WD/WN elderly male in NAD Heart: normal S1 and S2; Irregular irregular rhythm no rub or gallop Lungs: clear bilaterally Abdomen: soft, nontender, nondistended, positive bowel sounds Extremities: 1+ edema noted Skin: No rash Or subcu nodules Objective Data Vital Signs Vital Signs: Vital Signs - 24 hr 09/25/22 10:38 09/25/22 10:44 09/25/22 11:05 Temperature 97 F L Pulse Rate 103 H 123 H 118 H Respiratory Rate 20 20 Blood Pressure 126/96 H 119/73 Pulse Oximetry 96 96 Oxygen Delivery Nasal Cannula Oxygen Flow Rate 2 09/25/22 10:30 09/25/22 12:00 09/25/22 14:20 Temperature Pulse Rate 113 H Respiratory Rate Blood Pressure Pulse Oximetry 96 Oxygen Delivery Nasal Cannula Nasal Cannula Oxygen Flow Rate 2 2 09/25/22 14:00 09/25/22 16:42 09/25/22 16:00 Temperature
--- NOTE | 2022-09-26 11:19 | PM.IMPN ---
Progress Note: A&P Assessment and Plan (1) Fall: Code(s): W19.XXXA - Unspecified fall, initial encounter Status: Acute Assessment and Plan: Status post fall and generalized weakness. Likely secondary to recent diarrhea and dehydration and also being on chemotherapy causing him to be immunosuppressed. His diarrhea has resolved now. We will consult PT and OT. Patient does not want to go to rehab. Home health will be arranged (2) ESRD (end stage renal disease) on dialysis: Code(s): N18.6 - End stage renal disease; Z99.2 - Dependence on renal dialysis Status: Acute Assessment and Plan: Nephrology consulted. Patient receiving dialysis his dialysis catheter came out yesterday during dialysis. We will consult in the surgery for replacing the dialysis catheter. Chest x-ray was obtained at the time and I personally reviewed and did not see any pneumothorax. Tentative plan for dialysis catheter placement tomorrow Resume dialysis per Nephrology (3) Leukopenia: Code(s): D72.819 - Decreased white blood cell count, unspecified Status: Acute Assessment and Plan: Likely secondary to chemo therapy. Monitor CBC. Blood culture is negative so far. Staphylococcus epidermidis in 1 aerobic bottle only, likely contaminant. MRSA screen is also negative. Will discontinue antibiotic (4) Hypertension: Code(s): I10 - Essential (primary) hypertension Status: Chronic Assessment and Plan: Resume home meds (5) Diarrhea: Qualifiers: Diarrhea type: unspecified type Qualified Code(s): R19.7 - Diarrhea, unspecified Code(s): R19.7 - Diarrhea, unspecified Status: Acute Assessment and Plan: Resolved Subjective Date/time seen: 09/26/22 11:19 Interval history: Stable Review of Systems Review of Systems: All systems reviewed & are unremarkable except as noted in HPI and below Exam Narrative: General: WD/WN elderly male in NAD Heart: normal S1 and S2; Irregular irregular rhythm no rub or gallop Lungs: clear bilaterally Abdomen: soft, nontender, nondistended, positive bowel sounds Extremities: 1+ edema noted Skin: No rash Or subcu nodules Objective Data Vital Signs Vital Signs: Vital Signs - 24 hr 09/25/22 12:00 09/25/22 14:20 09/25/22 14:00 Temperature Pulse Rate 113 H 107 H Respiratory Rate Blood Pressure Pulse Oximetry Oxygen Delivery Nasal Cannula Oxygen Flow Rate 2 05/13/23 16:42 09/25/22 16:00 09/25/22 18:00 Temperature 96.1 F L Pulse Rate 104 H 108 H 105 H Respiratory Rate 20 Blood Pressure 108/60 Pulse Oximetry 93 Oxygen Delivery Oxygen Flow Rate 09/25/22 20:00 09/25/22 20:00 09/25/22 20:30 Temperature 97.8 F Pulse Rate 73 94 Respiratory Rate 20 Blood Pressure 100/67 Pulse Oximetry 90 Oxygen Delivery Room Air Oxygen Flow Rate 09/25/22 20:00 09/25/22 22:00 09/26/22 00:00 Temperature 97.6 F Pulse Rate 101 H 92 93 Respiratory Rate 20 Blood Pressure 110/62 Pulse Oximetry 100 Oxygen Delivery Oxygen Flow Rate 09/26/22 00:00 09/26/22 00:00 09/26/22 02:00 Temperature Pulse Rate 86 83 Respiratory Rate Blood Pressure Pulse Oximetry Oxygen Delivery Room Air Oxygen Flow Rate 09/26/22 04:00 09/26/22 04:00 09/26/22 04:00 Temperature 97.5 F L Pulse Rate 93 89 Respiratory Rate 20 Blood Pressure 107/75 Pulse Oximetry 90 90 Oxygen Delivery Nasal Cannula Oxygen Flow Rate 1 09/26/22 05:57 09/26/22 08:13 09/26/22 09:26 Temperature 96.8 F L Pulse Rate 94 71 86 Respiratory Rate 20 Blood Pressure 103/78 Pulse Oximetry 91 Oxygen Delivery Oxygen Flow Rate 09/26/22 08:00 09/26/22 08:00 09/26/22 10:00 Temperature Pulse Rate 74 81 Respiratory Rate Blood Pressure Pulse Oximetry 91 Oxygen Delivery Nasal Cannula Oxygen Flow Rate 1
--- NOTE | 2022-09-26 11:44 | PM.PNGS ---
Progress Note: A&P Assessment and Plan (1) ESRD (end stage renal disease) on dialysis: Code(s): N18.6 - End stage renal disease; Z99.2 - Dependence on renal dialysis Status: Acute Assessment and Plan: plan for replacment on TDC in OR tomorrow Subjective Subjective Date/Time Seen: 09/26/22 11:44 Interval history: no acute issues Review of Systems Review of Systems: All systems reviewed & are unremarkable except as noted in HPI and below Exam Const: General: cooperative, comfortable and no acute distress Neck: Neck: normal visual inspection, full ROM and no lymphadenopathy Chest: Other: TDC site - C/D/I Resp: Auscultation: diminished lung sounds Cardio: Rate: regular rate Rhythm: regular rhythm GI: Inspection: normal to inspection Objective Data Vital Signs Vital Signs: Vital Signs - 24 hr 09/25/22 12:00 09/25/22 14:20 09/25/22 14:00 Temperature Pulse Rate 113 H 107 H Respiratory Rate Blood Pressure Pulse Oximetry Oxygen Delivery Nasal Cannula Oxygen Flow Rate 2 09/25/22 16:42 09/25/22 16:00 09/25/22 18:00 Temperature 35.6 C L Pulse Rate 104 H 108 H 105 H Respiratory Rate 20 Blood Pressure 108/60 Pulse Oximetry 93 Oxygen Delivery Oxygen Flow Rate 09/25/22 20:00 09/25/22 20:00 09/25/22 20:30 Temperature 36.6 C Pulse Rate 73 94 Respiratory Rate 20 Blood Pressure 100/67 Pulse Oximetry 90 Oxygen Delivery Room Air Oxygen Flow Rate 09/25/22 20:00 09/25/22 22:00 09/26/22 00:00 Temperature 36.4 C Pulse Rate 101 H 92 93 Respiratory Rate 20 Blood Pressure 110/62 Pulse Oximetry 100 Oxygen Delivery Oxygen Flow Rate 09/26/22 00:00 09/26/22 00:00 09/26/22 02:00 Temperature Pulse Rate 86 83 Respiratory Rate Blood Pressure Pulse Oximetry Oxygen Delivery Room Air Oxygen Flow Rate 09/26/22 04:00 09/26/22 04:00 09/26/22 04:00 Temperature 36.4 C L Pulse Rate 93 89 Respiratory Rate 20 Blood Pressure 107/75 Pulse Oximetry 90 90 Oxygen Delivery Nasal Cannula Oxygen Flow Rate 1 09/26/22 05:57 09/26/22 08:13 09/26/22 09:26 Temperature 36.0 C L Pulse Rate 94 71 86 Respiratory Rate 20 Blood Pressure 103/78 Pulse Oximetry 91 Oxygen Delivery Oxygen Flow Rate 09/26/22 08:00 09/26/22 08:00 09/26/22 10:00 Temperature Pulse Rate 74 81 Respiratory Rate Blood Pressure Pulse Oximetry 91 Oxygen Delivery Nasal Cannula Oxygen Flow Rate 1 Intake/Output Intake/Output: Intake & Output 09/23/22 09/24/22 09/25/22 09/26/22 23:59 23:59 23:59 23:59 Intake Total 1510 1320 1880 780 Output Total 1822 50 1000 125 Balance -312 1270 880 655 Meds/Results Medications: Active Medications Generic Name Dose Route Start Last Admin Trade Name Freq PRN Reason Stop Dose Admin Acetaminophen 650 mg 09/23/22 06:28 Acetaminophen 325 Mg Tablet PO Q4H PRN Mild Pain (1-3) or Fever Hydrocodone Bitart/Acetaminophen 1 tab 09/23/22 06:28 09/25/22 15:21 Hydrocodone/Acetaminophen (*Crx) 5-325 Mg Tablet PO 1 tab Q4H PRN Administration Pain Rated 4-6 Dicyclomine HCl 20 mg 09/23/22 06:28 Dicyclomine Hcl Inj 20 Mg/2 Ml Vial IM Q6H PRN Abdominal Cramping Epoetin Santiago-epbx 10,000 units 09/27/22 16:00 Epoetin Santiago-Epbx 10,000 Units/Ml Vial IV PUSH 09/27/22 16:01 ONCE ONE Fluticasone Propionate 1 spray 09/23/22 23:45 09/26/22 08:30 Fluticasone Propionate 0.05% Na Spr 16 Gm Btl (*Bkc) NASAL 1 spray Q12HR ROBERT Administration Heparin Sodium (Porcine) 5,000 units 09/23/22 21:00 09/26/22 08:34 Heparin Sodium 5,000 Units/Ml Vial SUB-Q 5,000 units Q12HR ROBERT Administration Hydromorphone HCl 0.5 mg 09/23/22 06:28 Hydromorphone Hcl Inj (*Crx) 1 Mg/Ml Syr IV PUSH Q4H PRN Pain Rated 7-10 Azithromycin 500 mg in 250 mls @ 250 mls/hr 09/25/22 06:00 09/26/22 05
--- NOTE | 2022-09-26 13:09 | PC.NURSE ---
This patient, Arthur Cantor Jr., was transferred to [facility] on 09/26/22 at 1308. Personal belongings sent with patient. Report given to Cindy CALVO. Appropriate documentation sent with patient.
--- NOTE | 2022-09-26 13:20 | PC.NURSE ---
pt transferred in to room 320 via bed, oriented to new room and environment, reviewed plan of care, pt resting comfortably
[2022-09-26 16:46] LABS: Glucose Point of Care 175 mg/dl (65-105)
[2022-09-26 22:24] LABS: Glucose Point of Care 202 mg/dl (65-105)
[2022-09-27] VITALS (13 sets, daily range): BP systolic 98–154; BP diastolic 77–111; PULSE 73–115; RESP 14–23; TEMP 36–36.6; O2SAT 90–98
[2022-09-27] MEDS: AZITHROMYCIN 500 MG/NS 250 ML 500 MG/250 ML BAG 250 MG IVPB (05:49)
[2022-09-27 07:11] LABS: Basophils Percent Auto 0.3 % (0.2-1.2); Eosinophils Percent Auto 0.3 % (0-4.4); Hemoglobin 9.5 g/dL (14.0-18.0); Immature Granulocyte Percent A 3.4 % (0-0.5); Lymphocytes Absolute Auto 0.11 K/mm3 (0.9-3.2); Lymphocytes Percent Auto 3.8 % (18.3-44.2); Mean Corpuscular HGB Conc 32.8 g/dl (32-36); Mean Corpuscular Hemoglobin 34.2 pg (26-34); Mean Corpuscular Volume 104.3 fl (80-100); Mean Platelet Volume 10.5 fl (7.4-10.4); Monocytes Absolute Auto 0.2 K/mm3 (0.1-0.6); Monocytes Percent Auto 7.2 % (2.6-8.5); Neutrophils Absolute Auto 2.5 K/mm3 (1.3-6.7); Platelet Count Result 127 k/mm3 (150-375); Red Blood Count 2.78 M/mm3 (4.6-6.20); Red Cell Distribution Width 16.3 % (11.5-14.5); White Blood Count 2.9 K/mm3 (4.5-10.0)
[2022-09-27 07:23] LABS: Albumin Level 3.1 g/dL (3.5-5.1); Anion Gap 10 mmol/L (8-16); Blood Urea Nitrogen 64 mg/dL (9-20); Calcium 8.2 mg/dL (8.4-10.2); Carbon Dioxide 27 mmol/L (22-30); Chloride 100 mmol/L (98-107); Estimated CRCL calculation 14 ml/min; Estimated Glomerular Filt Rate 10; Glucose 103 mg/dL (65-110); Potassium 4.6 mmol/L (3.4-5.0); Sodium 137 mmol/L (137-145)
[2022-09-27 07:50] LABS: Glucose Point of Care 95 mg/dl (65-105)
--- NOTE | 2022-09-27 09:21 | WPDHPUPDATE1 ---
History and Physical Update Update Date/Time: 09/27/22 09:21 History and Physical has been reviewed, including an updated exam of the patient. There are NO changes in the patient's condition. Risks, benefits, and alternatives have been discussed and questions answered. Patient agrees to proceed with procedure.
[2022-09-27] MEDS: SODIUM CHLORIDE 0.9% IV 500 ML 30 ML IV CONT (09:40)
--- NOTE | 2022-09-27 09:47 | WPDANESEPPF ---
Anes - Initial Pre Proc Eval Procedure: Operation Date: 09/27/22 10:45 Proposed Procedures p Insertion Duraflow Permacath Dialysis Tunneled Dialysis Catheter - Shweta Forman MD Date/Time: 09/27/22 09:47 Surgeon: Sandor Morse MD Pre Op Diagnosis: respiratory failure Patient Data Age: 82 Gender: M Height: 1.85 m Weight: 134.8 kg Last Vital Signs Temp 97.6 F 09/27/22 09:27 Pulse 115 H 09/27/22 09:27 Resp 14 09/27/22 09:27 BP 114/95 H 09/27/22 09:27 Pulse Ox 94 09/27/22 09:27 O2 Del Method Nasal Cannula 09/27/22 09:27 O2 Flow Rate 2 09/27/22 09:27 Allergies Allergy/AdvReac Type Severity Reaction Status Date / Time camphor [From Biofreeze] Allergy Intermediate Hives Verified 08/27/22 13:39 menthol [From Biofreeze] Allergy Intermediate Hives Verified 08/27/22 13:39 Home Medications Medication Instructions Recorded Confirmed Type apixaban 2.5 mg tablet (Eliquis) 2.5 mg PO Q12HR #60 tabs 06/21/22 09/24/22 Rx famotidine 20 mg tablet 20 mg PO BID #60 tabs 06/22/22 09/24/22 Rx metoprolol tartrate 50 mg tablet 50 mg PO Q12H 07/16/22 09/24/22 History prednisone 20 mg tablet 20 mg PO BID #60 tabs 08/29/22 09/24/22 Rx cyclophosphamide 50 mg capsule 100 mg PO DAILY #60 caps 08/30/22 09/24/22 Rx amlodipine 5 mg tablet 5 mg PO DAILY 09/24/22 09/24/22 History furosemide 40 mg tablet 40 mg PO DAILY 09/24/22 09/24/22 History pantoprazole 40 mg tablet,delayed 40 mg PO QAM 09/24/22 09/24/22 History release Laboratory Tests 09/26/22 09/26/22 09/27/22 16:44 21:12 06:47 WBC Pending RBC Pending Hgb Pending Hct Pending MCV Pending MCH Pending MCHC Pending RDW Pending Plt Count Pending MPV Pending Immature Gran % (Auto) Pending Neut % (Auto) Pending Lymph % (Auto) Pending [place] % (Auto) Pending Eos % (Auto) Pending Baso % (Auto) Pending Lymph # (Auto) Pending [place] # (Auto) Pending Eos # (Auto) Pending Baso # (Auto) Pending Abs Immat Gran (auto) Pending Absolute Neuts (auto) Pending Absolute Nucleated RBC Pending Nucleated RBC % Pending Sodium 137 mmol/L (137-145) Potassium 4.6 mmol/L (3.4-5.0) Chloride 100 mmol/L (98-107) Carbon Dioxide 27 mmol/L (22-30) Anion Gap 10 mmol/L (8-16) BUN 64 H D mg/dL (9-20) Creatinine 5.50 H mg/dL (0.7-1.3) Estim Creat Clear Calc 14 ml/min Estimated GFR 10 L (59 - ) Glucose 103 mg/dL (65-110) POC Capillary Glucose 175 H mg/dl 202 H mg/dl (65-105) (65-105) Calcium 8.2 L mg/dL (8.4-10.2) Phosphorus 8.0 H mg/dL (2.5-4.5) Albumin 3.1 L g/dL (3.5-5.1) 09/27/22 07:45 WBC RBC Hgb Hct MCV MCH MCHC RDW Plt Count MPV Immature Gran % (Auto) Neut % (Auto) Lymph % (Auto) [place] % (Auto) Eos % (Auto) Baso % (Auto) Lymph # (Auto) [place] # (Auto) Eos # (Auto) Baso # (Auto) Abs Immat Gran (auto) Absolute Neuts (auto) Absolute Nucleated RBC Nucleated RBC % Sodium Potassium Chloride Carbon Dioxide Anion Gap BUN Creatinine Estim Creat Clear Calc Estimated GFR Glucose POC Capillary Glucose 95 mg/dl (65-105) Calcium Phosphorus Albumin Patient hx anesthesia problems: none Family hx anesthesia problems: none Results Review: All pre-operative results and documents have been reviewed as part of the pre-operative evaluation. [facility] Past Medical History Medical History (Revi
--- NOTE | 2022-09-27 09:53 | PCOTNOTE ---
Pt is currently off the floor for a procedure and will be at dialysis following procedure per RN. Will continue per POC duration/frequency tomorrow.
[2022-09-27 10:08] LABS: Anisocytosis 1+ (NORMAL); Burr Cells 1+ (NORMAL); Platelet Estimate Adequate (Adequate); Schistocytes None Seen (NORMAL)
[2022-09-27] MEDS: HEPARIN SODIUM 5,000 UNITS/ML VIAL 5000 UNITS SUB-Q (10:22)
[2022-09-27] MEDS: BUPIVACAINE/EPINEPHRINE 0.5% 50 ML VIAL 20 ML INFILTRATE (10:22)
[2022-09-27] MEDS: HEPARIN SODIUM, PORCINE 10,000 UNITS/10 ML VIAL 10000 UNITS IV PUSH (10:22)
--- NOTE | 2022-09-27 10:54 | PCPTNOTE ---
The patient treatment was not able to be completed due to patient out of room for dialysis catheter placement. Will plan to continue treatment per plan of care.
--- NOTE | 2022-09-27 11:10 | PC.NURSE ---
Pt transported to OR by bed at 0915.
--- NOTE | 2022-09-27 11:49 | P.OP_ITS ---
Procedure Note - Detailed Date of Procedure 09/27/22 Pre-op Diagnosis respiratory failure, ESRD Post-op Diagnosis Same Procedure Performed attempted placement of right internal jugular tunneled hemodialysis catheter, placement of 28 cm tunneled hemodialysis catheter in left internal jugular vein under both ultrasound and fluroscopic guidance Surgeon Shweta Forman MD Anesthesia MAC and Local Indications 82 y/o M presenting c ESRD with accidental dislodgment of previously placed RIJ TDC Findings able to cannulate RIJ but unable to pass wire, 1st stick LIJ Description of Procedure Patient was taken to the operating room and placed in the supine position. After adequate induction of general anesthesia, the patient was prepped and draped in normal sterile fashion. A time-out was then done to verify the p atient's identity as well as the procedure being performed. Using the SonoSite, I was able to identify the right internal jugular vein. I was able to cannulate the vein with an 18 gauge needle. Upon trying to pass a guidewire, there was noted to be a lot of resistance. I did use fluoroscopy to assist with passing wire, however was still unable to pass. The decision was then made to switch to the left side. I began by using the SonoSite and locating the left internal jugular vein. Once this was done, I localized the overlying skin. I then made a small incision in the skin. I then gained access into the left internal jugular vein with an 18 gauge needle. At this point, I threaded the guidewire into the left internal jugular vein. Placement of the guidewire was confirmed by both ultrasound and fluoroscopic guidance. I then went ahead and measured the 28 cm tunneled dialysis catheter to our stick site in the left neck. I then localized the tract going from the left chest to the left neck. I then made a small incision in the left chest and tunneled the catheter to the left neck. I then serially dilated the left internal jugular vein under fluoroscopic guidance. Once adequately dilated, I placed the dilating sheath over the guidewire into the left internal jugular vein under fluoroscopic visualization. Once this was noted to be in good position, I removed both the guidewire and dilator, now just leaving the sheath in the vein. I then went ahead and fed the previously tunneled catheter into the sheath. Once the catheter was fed and positioned correctly, I went ahead and peeled the sheath away. Final fluoroscopic view showed the catheter in good position from its insertion point in the left chest to its termination in the vena cava. It was noted there was no kinking of the catheter. I was able to easily draw and flush from both ports of the catheter. I placed 2.2 and 2.3 cc of final heparin flush into each port as marked. The catheter was then sutured into place and the incision in the neck was closed with 4 O Monocryl subcuticular suture. The patient tolerated the procedure well and will be transferred to the PACU in stable condition. Sterile dressing was placed on the catheter. Portable chest x-ray will be done in the PACU. Implants 28 cm tunneled hemodialysis catheter Estimated Blood Loss 50 Drains No Packing No Pathology None sent Complications No immediate complications Condition Stable Disposition [facility] - Charge Forward: Surgery Marita
[2022-09-27 12:56] LABS: Glucose Point of Care 76 mg/dl (65-105)
[2022-09-27] MEDS: METOPROLOL TARTRATE 50 MG TAB PO ×2 (13:38→19:50)
[2022-09-27] MEDS: predniSONE 10 MG TABLET PO ×2 (13:38→17:44)
[2022-09-27] MEDS: FLUTICASONE PROPIONATE 0.05% NA SPR 16 GM BTL (*BKC) 1 SPRAY NASAL ×2 (13:38→19:50)
[2022-09-27] MEDS: HYDROcodone/acetaminophen (*CRX) 5-325 MG TABLET 1 TAB PO ×2 (13:40→19:49)
[2022-09-27] MEDS: amLODIPine BESYLATE 5 MG TABLET PO (14:28)
[2022-09-27] MEDS: FUROSEMIDE 40 MG TABLET PO (14:28)
--- NOTE | 2022-09-27 15:13 | PM.IMPN ---
Progress Note: A&P Assessment and Plan (1) Fall: Code(s): W19.XXXA - Unspecified fall, initial encounter Status: Acute Assessment and Plan: Status post fall and generalized weakness. Likely secondary to recent diarrhea and dehydration and also being on chemotherapy causing him to be immunosuppressed. His diarrhea has resolved now. We will consult PT and OT. Patient does not want to go to rehab. Home health will be arranged (2) ESRD (end stage renal disease) on dialysis: Code(s): N18.6 - End stage renal disease; Z99.2 - Dependence on renal dialysis Status: Acute Assessment and Plan: Nephrology consulted. Patient receiving dialysis his dialysis catheter came out yesterday during dialysis. We will consult in the surgery for replacing the dialysis catheter. Chest x-ray was obtained at the time and I personally reviewed and did not see any pneumothorax. Tentative plan for dialysis catheter placement today Resume dialysis per Nephrology tomorrow (3) Leukopenia: Code(s): D72.819 - Decreased white blood cell count, unspecified Status: Acute Assessment and Plan: Likely secondary to chemo therapy. Monitor CBC. Blood culture is negative so far. Staphylococcus epidermidis in 1 aerobic bottle only, likely contaminant. MRSA screen is also negative. Will discontinue antibiotic (4) Hypertension: Code(s): I10 - Essential (primary) hypertension Status: Chronic Assessment and Plan: Resume home meds (5) Diarrhea: Qualifiers: Diarrhea type: unspecified type Qualified Code(s): R19.7 - Diarrhea, unspecified Code(s): R19.7 - Diarrhea, unspecified Status: Acute Assessment and Plan: Resolved Subjective Date/time seen: 09/27/22 15:13 Interval history: 82-year-old male with a past medical history of ESRD on dialysis who presented to the ER with complaints of fall.? Patient states he woke up this morning around 3:00 a.m. and got up from the bed and walk for 5 steps and fell down because his legs gave up and he felt really weak.?? Pt had left internal jugular central venous catheter with tip in left brachiocephalic vein. today Pt to have dialysis tomorrow Review of Systems Review of Systems: No specific complaints Exam Narrative: General: male in NAD Heart: normal S1 and S2; Irregular irregular rhythm no rub or gallop Lungs: clear bilaterally Abdomen: soft, nontender, nondistended, positive bowel sounds Extremities: 1+ edema noted Objective Data Vital Signs Vital Signs: Vital Signs - 24 hr 09/26/22 21:01 09/26/22 22:50 09/27/22 06:00 Temperature 36.1 C L 36.0 C L Pulse Rate 85 95 97 Respiratory Rate 18 16 Blood Pressure 90/57 L 113/88 Pulse Oximetry 97 90 Oxygen Delivery Oxygen Flow Rate 09/27/22 09:27 09/27/22 08:00 09/27/22 11:47 Temperature 36.4 C 36.1 C L Pulse Rate 115 H 82 Respiratory Rate 14 16 Blood Pressure 114/95 H 154/109 H Pulse Oximetry 94 95 92 Oxygen Delivery Nasal Cannula Nasal Cannula Nasal Cannula Oxygen Flow Rate 2 1 2 09/27/22 12:00 09/27/22 12:30 09/27/22 12:45 Temperature Pulse Rate 99 90 93 Respiratory Rate 18 17 20 Blood Pressure 130/92 H 137/100 H 140/111 H Pulse Oximetry 96 94 93 Oxygen Delivery Nasal Cannula Nasal Cannula Nasal Cannula Oxygen Flow Rate 3 3 3 09/27/22 13:00 09/27/22 13:15 09/27/22 13:38 Temperature Pulse Rate 93 101 H 73 Respiratory Rate 23 H 20 Blood Pressure 150/88 H 132/100 H Pulse Oximetry 95 Oxygen Delivery Nasal Cannula Nasal Cannula Oxygen Flow Rate 3 3 Intake/Output Intake/Output: Intake & Output 09/24/22 09/25/22 09/26/22 09/27/22 23:59 23:59 23:59 23:59 Intake Total 1320 1880 2010 350 Output Total 50 1000 125 250 Balance 1582 502 1485 100 Meds/Results Medications: Active Medications Generic Name Dose Route Start Last Admin Trade Name Freq PRN R
--- NOTE | 2022-09-27 15:35 | PM.PNNEP ---
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 The creatinine nancy from 3.9-4.9. plan HD tomorrow to resume T/T/S schedule the hope is for possible renal recovery but getting dialytic support until this occurs hold cytoxan due to leukopenia and thrombocytopenia, but continue steroids follow trend of repeat labs and UOP (to assess for potential renal recovery) (2) Chronic kidney disease, stage IV (severe): Code(s): N18.4 - Chronic kidney disease, stage 4 (severe) Status: Chronic Assessment and Plan: since 2019, creatinine has been running ~ 1.4 - 1.7mg/dl however, in July 2021, it increased to 1.93mg/dl then, in March 2022, it was 2.32mg/dl on discharge in early May 2022, it was 3.3mg/dl outpatient labs on 05/28/22, creatinine up to 4.4mg/dl probably has some underlying chronic kidney disease due to HTN, vascular disease/CHF, and age not clear when microscopic polyangiitis started ... (3) Leukopenia: Code(s): D72.819 - Decreased white blood cell count, unspecified Status: Acute Assessment and Plan: likely secondary to cytoxan hold this for now follow WBC (4) Bacteremia: Code(s): R78.81 - Bacteremia Status: Acute Assessment and Plan: noted but only 1 out of 2 sets -- likely contamination follow repeat cultures on Zithromax and ceftriaxone. no fever (5) Fall: Code(s): W19.XXXA - Unspecified fall, initial encounter Status: Acute Assessment and Plan: possibly due to previous diarrhea r/o infection given immunosuppression PT/OT as tolerated (6) Hypertension: Code(s): I10 - Essential (primary) hypertension Status: Chronic Assessment and Plan: systolic ranging from 100 to 120 follow trend of hemodynamics (7) Atrial fibrillation: Code(s): I48.91 - Unspecified atrial fibrillation Status: Acute Assessment and Plan: rate control strategy on metoprolol on anticoagulation (8) Anemia: Code(s): D64.9 - Anemia, unspecified Status: Chronic Assessment and Plan: due to RAMIRO, CKD, and dialysis dependence Epogen with HD follow H/H Will continue to follow. Subjective Date/time seen: 09/27/22 15:35 Interval history: Follow-up for RAMIRO on CKD requiring renal replacement therapy/hemodialysis. Chart reviewed since last seen -- HD catheter feel out during last dialysis treatment (on Tuesday) after being treatment for about an hour; s/p new HD catheter placement earlier today and tolerated this intervention reasonably well. Exam Narrative: General: WD/WN elderly male in NAD Heart: normal S1 and S2; Irregular irregular rhythm Lungs: clear bilaterally Abdomen: soft, nontender, nondistended, positive bowel sounds Extremities: 1+ edema noted Skin: warm and dry Objective Data Vital Signs Vital Signs: Vital Signs Temp Pulse Resp BP Pulse Ox O2 Del Method O2 Flow Rate 09/27/22 13:38 73 09/27/22 13:15 101 H 20 132/100 H 95 Nasal Cannula 3 09/27/22 13:00 93 23 H 150/88 H Nasal Cannula 3 09/27/22 12:45 93 20 140/111 H 93 Nasal Cannula 3 09/27/22 12:30 90 17 137/100 H 94 Nasal Cannula 3 09/27/22 12:00 99 18 130/92 H 96 Nasal Cannula 3 09/27/22 11:47 97.0 F L 82 16 154/109 H 92 Nasal Cannula 2 09/27/22 08:00 95 Nasal Cannula 1 09/27/22 09:27 97.6 F 115 H 14 114/95 H 94 Nasal Cannula 2 09/27/22 06:00
--- NOTE | 2022-09-27 15:35 | P.PNNP_ITS ---
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 The creatinine nancy from 3.9-4.9. * plan HD tomorrow to resume T/T/S schedule * the hope is for possible renal recovery but getting dialytic support until this occurs * hold cytoxan due to leukopenia and thrombocytopenia, but continue steroids * follow trend of repeat labs and UOP (to assess for potential renal recovery) (2) Chronic kidney disease, stage IV (severe): Code(s): N18.4 - Chronic kidney disease, stage 4 (severe) Status: Chronic Assessment and Plan: * since 2019, creatinine has been running ~ 1.4 - 1.7mg/dl * however, in July 2021, it increased to 1.93mg/dl * then, in March 2022, it was 2.32mg/dl * on discharge in early May 2022, it was 3.3mg/dl * outpatient labs on 05/28/22, creatinine up to 4.4mg/dl * probably has some underlying chronic kidney disease due to HTN, vascular disease/CHF, and age * not clear when microscopic polyangiitis started ... (3) Leukopenia: Code(s): D72.819 - Decreased white blood cell count, unspecified Status: Acute Assessment and Plan: * likely secondary to cytoxan * hold this for now * follow WBC (4) Bacteremia: Code(s): R78.81 - Bacteremia Status: Acute Assessment and Plan: * noted but only 1 out of 2 sets -- likely contamination * follow repeat cultures * on Zithromax and ceftriaxone. * no fever (5) Fall: Code(s): W19.XXXA - Unspecified fall, initial encounter Status: Acute Assessment and Plan: * possibly due to previous diarrhea * r/o infection given immunosuppression * PT/OT as tolerated (6) Hypertension: Code(s): I10 - Essential (primary) hypertension Status: Chronic Assessment and Plan: * systolic ranging from 100 to 120 * follow trend of hemodynamics (7) Atrial fibrillation: Code(s): I48.91 - Unspecified atrial fibrillation Status: Acute Assessment and Plan: * rate control strategy * on metoprolol * on anticoagulation (8) Anemia: Code(s): D64.9 - Anemia, unspecified Status: Chronic Assessment and Plan: * due to RAMIRO, CKD, and dialysis dependence * Epogen with HD * follow H/H Will continue to follow. Subjective Date/time seen: 09/27/22 15:35 Interval history: Follow-up for RAMIRO on CKD requiring renal replacement therapy/hemodialysis. Chart reviewed since last seen -- HD catheter feel out during last dialysis treatment (on Tuesday) after being treatment for about an hour; s/p new HD catheter placement earlier today and tolerated this intervention reasonably well. Exam Narrative: General: WD/WN elderly male in NAD Heart: normal S1 and S2; Irregular irregular rhythm Lungs: clear bilaterally Abdomen: soft, nontender, nondistended, positive bowel sounds Extremities: 1+ edema noted Skin: warm and dry Objective Data Vital Signs Vital Signs:
[2022-09-27 17:02] LABS: Glucose Point of Care 173 mg/dl (65-105)
--- NOTE | 2022-09-27 19:04 | PC.NURSE ---
I have reviewed Carrie Fortune's charting and verify her charting
[2022-09-27] MEDS: APIXABAN 2.5 MG TABLET PO (19:49)
[2022-09-27] MEDS: FAMOTIDINE 20 MG TABLET PO (19:49)
[2022-09-27] MEDS: HYDROmorphone HCL INJ (*CRX) 1 MG/ML SYR 0.5 MG IV PUSH (22:26)
[2022-09-27] MEDS: BENZOCAINE/MENTHOL (*BKC) 18 EA LOZENGE 1 LOZENGE PO (23:51)
[2022-09-28] VITALS (22 sets, daily range): BP systolic 97–141; BP diastolic 73–96; PULSE 72–108; RESP 16–22; TEMP 35.7–36.6; O2SAT 85–98
[2022-09-28] MEDS: BENZOCAINE/MENTHOL (*BKC) 18 EA LOZENGE 1 LOZENGE PO ×4 (03:15→20:27)
[2022-09-28] MEDS: HYDROcodone/acetaminophen (*CRX) 5-325 MG TABLET 1 TAB PO ×2 (06:05→17:43)
[2022-09-28 06:29] LABS: Anion Gap 12 mmol/L (8-16); Blood Urea Nitrogen 71 mg/dL (9-20); Calcium 7.7 mg/dL (8.4-10.2); Carbon Dioxide 24 mmol/L (22-30); Chloride 98 mmol/L (98-107); Estimated CRCL calculation 13 ml/min; Estimated Glomerular Filt Rate 9; Glucose 123 mg/dL (65-110); Potassium 4.8 mmol/L (3.4-5.0); Sodium 134 mmol/L (137-145)
[2022-09-28 07:41] LABS: Glucose Point of Care 98 mg/dl (65-105)
[2022-09-28] MEDS: FLUTICASONE PROPIONATE 0.05% NA SPR 16 GM BTL (*BKC) 1 SPRAY NASAL ×2 (08:22→20:27)
[2022-09-28] MEDS: METOPROLOL TARTRATE 50 MG TAB PO ×2 (08:23→20:31)
[2022-09-28] MEDS: PANTOPRAZOLE 40 MG TABLET PO (08:23)
[2022-09-28] MEDS: APIXABAN 2.5 MG TABLET PO ×2 (08:24→20:26)
[2022-09-28] MEDS: amLODIPine BESYLATE 5 MG TABLET PO (08:24)
[2022-09-28] MEDS: predniSONE 10 MG TABLET PO ×2 (08:24→16:26)
[2022-09-28] MEDS: FUROSEMIDE 40 MG TABLET PO (08:25)
[2022-09-28] MEDS: FAMOTIDINE 20 MG TABLET PO ×2 (08:25→20:29)
--- NOTE | 2022-09-28 08:50 | PC.NURSE ---
Pt transported to dialysis via bed @0895.
--- NOTE | 2022-09-28 10:09 | PCPTNOTE ---
The patient treatment was not able to be completed due to patient in dialysis. Will plan to continue treatment per plan of care.
--- NOTE | 2022-09-28 11:00 | PCOTNOTE ---
Patient out of the room at this time. Patient is in dialysis at this time.
[2022-09-28] MEDS: EPOETIN ALFA-EPBX 10,000 UNITS/ML VIAL 10000 UNITS IV PUSH (11:27)
--- NOTE | 2022-09-28 11:52 | P.PNNP_ITS ---
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 The creatinine nancy from 3.9-4.9. * HD today and continue/resume T/T/S dialysis schedule * the hope is for possible renal recovery but getting dialytic support until this occurs * hold cytoxan due to leukopenia and thrombocytopenia, but continue steroids * follow trend of repeat labs and UOP (to assess for potential renal recovery) (2) Chronic kidney disease, stage IV (severe): Code(s): N18.4 - Chronic kidney disease, stage 4 (severe) Status: Chronic Assessment and Plan: * since 2019, creatinine has been running ~ 1.4 - 1.7mg/dl * however, in July 2021, it increased to 1.93mg/dl * then, in March 2022, it was 2.32mg/dl * on discharge in early May 2022, it was 3.3mg/dl * outpatient labs on 05/28/22, creatinine up to 4.4mg/dl * probably has some underlying chronic kidney disease due to HTN, vascular disease/CHF, and age * not clear when microscopic polyangiitis started ... (3) Leukopenia: Code(s): D72.819 - Decreased white blood cell count, unspecified Status: Acute Assessment and Plan: * likely secondary to cytoxan * hold this for now * follow WBC (4) Bacteremia: Code(s): R78.81 - Bacteremia Status: Acute Assessment and Plan: * noted but only 1 out of 2 sets -- likely contamination * follow repeat cultures * on Zithromax and ceftriaxone. * no fever (5) Fall: Code(s): W19.XXXA - Unspecified fall, initial encounter Status: Acute Assessment and Plan: * possibly due to previous diarrhea * r/o infection given immunosuppression * PT/OT as tolerated (6) Hypertension: Code(s): I10 - Essential (primary) hypertension Status: Chronic Assessment and Plan: * reasonable control * follow trend of hemodynamics (7) Atrial fibrillation: Code(s): I48.91 - Unspecified atrial fibrillation Status: Acute Assessment and Plan: * rate control strategy * on metoprolol * on anticoagulation (8) Anemia: Code(s): D64.9 - Anemia, unspecified Status: Chronic Assessment and Plan: * due to RAMIRO, CKD, and dialysis dependence * Epogen with HD * follow H/H Will continue to follow. Subjective Date/time seen: 09/28/22 10:32 Interval history: Follow-up for RAMIRO on CKD requiring renal replacement therapy/hemodialysis. Tolerating dialysis treatment at the time of my visit (seen on HD at ~ 10:25AM); no apparent distress voiced; no issues overnight; only complaint is that of sore throat. Exam Narrative: General: WD/WN elderly male in NAD Heart: normal S1 and S2; Irregular irregular rhythm Lungs: clear bilaterally Abdomen: soft, nontender, nondistended, positive bowel sounds Extremities: 1+ edema noted Skin: warm and intact Objective Data Vital Signs Vital Signs: Vital Signs Temp
--- NOTE | 2022-09-28 11:52 | PM.PNNEP ---
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 The creatinine nancy from 3.9-4.9. HD today and continue/resume T/T/S dialysis schedule the hope is for possible renal recovery but getting dialytic support until this occurs hold cytoxan due to leukopenia and thrombocytopenia, but continue steroids follow trend of repeat labs and UOP (to assess for potential renal recovery) (2) Chronic kidney disease, stage IV (severe): Code(s): N18.4 - Chronic kidney disease, stage 4 (severe) Status: Chronic Assessment and Plan: since 2019, creatinine has been running ~ 1.4 - 1.7mg/dl however, in July 2021, it increased to 1.93mg/dl then, in March 2022, it was 2.32mg/dl on discharge in early May 2022, it was 3.3mg/dl outpatient labs on 05/28/22, creatinine up to 4.4mg/dl probably has some underlying chronic kidney disease due to HTN, vascular disease/CHF, and age not clear when microscopic polyangiitis started ... (3) Leukopenia: Code(s): D72.819 - Decreased white blood cell count, unspecified Status: Acute Assessment and Plan: likely secondary to cytoxan hold this for now follow WBC (4) Bacteremia: Code(s): R78.81 - Bacteremia Status: Acute Assessment and Plan: noted but only 1 out of 2 sets -- likely contamination follow repeat cultures on Zithromax and ceftriaxone. no fever (5) Fall: Code(s): W19.XXXA - Unspecified fall, initial encounter Status: Acute Assessment and Plan: possibly due to previous diarrhea r/o infection given immunosuppression PT/OT as tolerated (6) Hypertension: Code(s): I10 - Essential (primary) hypertension Status: Chronic Assessment and Plan: reasonable control follow trend of hemodynamics (7) Atrial fibrillation: Code(s): I48.91 - Unspecified atrial fibrillation Status: Acute Assessment and Plan: rate control strategy on metoprolol on anticoagulation (8) Anemia: Code(s): D64.9 - Anemia, unspecified Status: Chronic Assessment and Plan: due to RAMIRO, CKD, and dialysis dependence Epogen with HD follow H/H Will continue to follow. Subjective Date/time seen: 09/28/22 10:32 Interval history: Follow-up for RAMIRO on CKD requiring renal replacement therapy/hemodialysis. Tolerating dialysis treatment at the time of my visit (seen on HD at ~ 10:25AM); no apparent distress voiced; no issues overnight; only complaint is that of sore throat. Exam Narrative: General: WD/WN elderly male in NAD Heart: normal S1 and S2; Irregular irregular rhythm Lungs: clear bilaterally Abdomen: soft, nontender, nondistended, positive bowel sounds Extremities: 1+ edema noted Skin: warm and intact Objective Data Vital Signs Vital Signs: Vital Signs Temp Pulse Resp BP Pulse Ox O2 Del Method O2 Flow Rate 09/28/22 10:20 103 H 113/88 09/28/22 10:00 72 110/84 09/28/22 09:40 86 108/84 09/28/22 09:29 96 117/84 09/28/22 09:30 2 09/28/22 09:13 97.9 F 105 H 22 H 110/86 94 09/28/22 08:30 96 Nasal Cannula 3 09/28/22 08:22 98 Nasal Cannula 4 09/28/22 08:23 72 09/28/22 07:27 97.0 F L 90 19 125/93 H 98 09/27/22 22:18 97.8 F 97 18 98/78 L 98 09/27/22 19:50 106 H 09/27/22 16:00 97.2 F L 97 20 120/77 97 09/27/22 13:38 73 09/27/22 13:15 101 H 20 132/100 H 95 Nasal
--- NOTE | 2022-09-28 13:30 | PCOTNOTE ---
Patient still out of the room, Patient has not returned from dialysis as of this time. Patient will be attempted again tomorrow.
--- NOTE | 2022-09-28 13:37 | WPDANESPN ---
Anes - Prog Note Post-Op Date/Time: 09/28/22 13:37 Vital Signs: Last Vital Signs Temp 36.6 C 09/28/22 09:13 Pulse 95 09/28/22 11:40 Resp 22 H 09/28/22 09:13 BP 120/85 09/28/22 11:40 Pulse Ox 94 09/28/22 09:13 O2 Del Method Nasal Cannula 09/28/22 08:30 O2 Flow Rate 2 09/28/22 09:30 Pain Score (VAS): 0 I/O: Intake & Output 09/27/22 09/28/22 09/28/22 23:59 07:59 15:59 Intake Total 240 400 480 Output Total 200 250 Balance 40 150 480 Laboratory Tests 09/27/22 06:47 09/28/22 05:52 09/27/22 09/28/22 09/28/22 16:52 05:52 07:33 Sodium 134 L Potassium 4.8 Chloride 98 Carbon Dioxide 24 Anion Gap 12 BUN 71 H Creatinine 5.80 H Estim Creat Clear Calc 13 Estimated GFR 9 L Glucose 123 H POC Capillary Glucose 173 H 98 Calcium 7.7 L Patient Feedback: Patient satisfied with anesthetic care.
--- NOTE | 2022-09-28 14:14 | PM.IMPN ---
Progress Note: A&P Assessment and Plan (1) Fall: Code(s): W19.XXXA - Unspecified fall, initial encounter Status: Acute Assessment and Plan: Status post fall and generalized weakness. Likely secondary to recent diarrhea and dehydration and also being on chemotherapy causing him to be immunosuppressed. His diarrhea has resolved now. We will consult PT and OT. Patient does not want to go to rehab. Home health will be arranged (2) ESRD (end stage renal disease) on dialysis: Code(s): N18.6 - End stage renal disease; Z99.2 - Dependence on renal dialysis Status: Acute Assessment and Plan: Nephrology consulted. Patient receiving dialysis his dialysis catheter came out yesterday during dialysis. We will consult in the surgery for replacing the dialysis catheter. Chest x-ray was obtained at the time and I personally reviewed and did not see any pneumothorax. Sp dialysis catheter placement Resume dialysis per Nephrology (3) Leukopenia: Code(s): D72.819 - Decreased white blood cell count, unspecified Status: Acute Assessment and Plan: Likely secondary to chemo therapy. Monitor CBC. Blood culture is negative so far. Staphylococcus epidermidis in 1 aerobic bottle only, likely contaminant. MRSA screen is also negative. Antibiotic stopped (4) Hypertension: Code(s): I10 - Essential (primary) hypertension Status: Chronic Assessment and Plan: Resume home meds (5) Diarrhea: Qualifiers: Diarrhea type: unspecified type Qualified Code(s): R19.7 - Diarrhea, unspecified Code(s): R19.7 - Diarrhea, unspecified Status: Acute Assessment and Plan: Resolved Subjective Date/time seen: 09/28/22 14:14 Interval history: 82-year-old male with a past medical history of ESRD on dialysis who presented to the ER with complaints of fall.? Patient states he woke up this morning around 3:00 a.m. and got up from the bed and walk for 5 steps and fell down because his legs gave up and he felt really weak.?? Pt had left internal jugular central venous catheter with tip in left brachiocephalic vein. yesterday inserted Pt to having dialysis seen by nephrology MD see recommendations Review of Systems Review of Systems: No specific complaints All systems reviewed & are unremarkable except as noted in HPI and below Exam Narrative: General: male in NAD Heart: normal S1 and S2; Irregular irregular rhythm no rub or gallop Lungs: clear bilaterally Abdomen: soft, nontender, nondistended, positive bowel sounds Extremities: 1+ edema noted Objective Data Vital Signs Vital Signs: Vital Signs - 24 hr 09/27/22 16:00 09/27/22 19:50 09/27/22 22:18 Temperature 36.2 C L 36.6 C Pulse Rate 97 106 H 97 Respiratory Rate 20 18 Blood Pressure 120/77 98/78 L Pulse Oximetry 97 98 Oxygen Delivery Oxygen Flow Rate 09/28/22 07:27 09/28/22 08:23 09/28/22 08:22 Temperature 36.1 C L Pulse Rate 90 72 Respiratory Rate 19 Blood Pressure 125/93 H Pulse Oximetry 98 98 Oxygen Delivery Nasal Cannula Oxygen Flow Rate 4 09/28/22 08:30 09/28/22 09:13 09/28/22 09:30 Temperature 36.6 C Pulse Rate 105 H Respiratory Rate 22 H Blood Pressure 110/86 Pulse Oximetry 96 94 Oxygen Delivery Nasal Cannula Oxygen Flow Rate 3 2 09/28/22 09:29 09/28/22 09:40 09/28/22 10:00 Temperature Pulse Rate 96 86 72 Respiratory Rate Blood Pressure 117/84 108/84 110/84 Pulse Oximetry Oxygen Delivery Oxygen Flow Rate 09/28/22 10:20 09/28/22 10:40 09/28/22 11:00 Temperature Pulse Rate 103 H 88 83 Respiratory Rate Blood Pressure 113/88 113/79 101/79 Pulse Oximetry Oxygen Delivery Oxygen Flow Rate 09/28/22 11:20 09/28/22 11:40 Temperature Pulse Rate 94 95 Respiratory Rate Blood Pressure 120/82 120/85 Pulse Oximetry Oxygen Delivery Oxygen Flow Ra
[2022-09-28 16:38] LABS: Glucose Point of Care 102 mg/dl (65-105)
[2022-09-28 16:41] LABS: Glucose Point of Care 170 mg/dl (65-105)
--- NOTE | 2022-09-28 19:41 | PC.NURSE ---
On 09/28/22, the graduate nurse, Carrie Fortune, provided care and completed [employer] documentation on this patient. I have reviewed the documentation and agree with the findings.
[2022-09-28 19:52] LABS: Glucose Point of Care 125 mg/dl (65-105)
[2022-09-28] MEDS: HYDROmorphone HCL INJ (*CRX) 1 MG/ML SYR 0.5 MG IV PUSH (20:38)
[2022-09-29] VITALS (7 sets, daily range): BP systolic 108–114; BP diastolic 77–88; PULSE 88–104; RESP 16–20; TEMP 35.8–36.5; O2SAT 91–95
[2022-09-29] MEDS: HYDROcodone/acetaminophen (*CRX) 5-325 MG TABLET 1 TAB PO ×2 (04:42→16:28)
[2022-09-29 06:22] LABS: Hematocrit 28.5 % (42.0-52.0); Hemoglobin 9.2 g/dL (14.0-18.0); Mean Corpuscular HGB Conc 32.3 g/dl (32-36); Mean Corpuscular Hemoglobin 34.7 pg (26-34); Mean Corpuscular Volume 107.5 fl (80-100); Mean Platelet Volume 10.1 fl (7.4-10.4); Platelet Count Result 137 k/mm3 (150-375); Red Blood Count 2.65 M/mm3 (4.6-6.20); Red Cell Distribution Width 16.6 % (11.5-14.5)
[2022-09-29 06:38] LABS: Anion Gap 9 mmol/L (8-16); Blood Urea Nitrogen 56 mg/dL (9-20); Carbon Dioxide 27 mmol/L (22-30); Chloride 99 mmol/L (98-107); Estimated CRCL calculation 16 ml/min; Estimated Glomerular Filt Rate 12; Glucose 126 mg/dL (65-110); Potassium 4.8 mmol/L (3.4-5.0); Sodium 135 mmol/L (137-145)
[2022-09-29] MEDS: predniSONE 10 MG TABLET PO ×2 (08:28→16:28)
[2022-09-29] MEDS: FAMOTIDINE 20 MG TABLET PO ×2 (08:29→20:21)
[2022-09-29] MEDS: METOPROLOL TARTRATE 50 MG TAB PO ×2 (08:29→20:21)
[2022-09-29] MEDS: APIXABAN 2.5 MG TABLET PO ×2 (08:29→20:21)
[2022-09-29] MEDS: amLODIPine BESYLATE 5 MG TABLET PO (08:29)
[2022-09-29] MEDS: FLUTICASONE PROPIONATE 0.05% NA SPR 16 GM BTL (*BKC) 1 SPRAY NASAL ×2 (08:31→20:21)
[2022-09-29] MEDS: PANTOPRAZOLE 40 MG TABLET PO (08:31)
[2022-09-29] MEDS: FUROSEMIDE 40 MG TABLET PO (08:31)
--- NOTE | 2022-09-29 09:57 | PM.IMPN ---
Progress Note: A&P Assessment and Plan (1) Fall: Code(s): W19.XXXA - Unspecified fall, initial encounter Status: Acute Assessment and Plan: Status post fall and generalized weakness. Likely secondary to recent diarrhea and dehydration and also being on chemotherapy causing him to be immunosuppressed. His diarrhea has resolved now. PT OT consulted. patient does not want to go to rehab. Home health will be arranged (2) ESRD (end stage renal disease) on dialysis: Code(s): N18.6 - End stage renal disease; Z99.2 - Dependence on renal dialysis Status: Acute Assessment and Plan: Nephrology consulted. Patient receiving dialysis his dialysis catheter came out during dialysis. General surgery consulted and replaced dialysis catheter Resume dialysis per Nephrology (3) Leukopenia: Code(s): D72.819 - Decreased white blood cell count, unspecified Status: Acute Assessment and Plan: Likely secondary to chemo therapy. Monitor CBC. Blood culture is negative so far. Staphylococcus epidermidis in 1 aerobic bottle only, likely contaminant. MRSA screen is also negative. Antibiotic stopped Sore throat reported. Will get strep swab (4) Hypertension: Code(s): I10 - Essential (primary) hypertension Status: Chronic Assessment and Plan: Resume home meds (5) Diarrhea: Qualifiers: Diarrhea type: unspecified type Qualified Code(s): R19.7 - Diarrhea, unspecified Code(s): R19.7 - Diarrhea, unspecified Status: Acute Assessment and Plan: Resolved Plan Biopsy-proven focal crescentic necrotizing pauci immune glomerulonephritis. P-ANCA positive on steroid and cyclophosphamide treated with pulse dose steroids and IV Cytoxan in May 2022. On Cytoxan and steroid currently Chronic anemia likely due to CKD. Epogen with hemodialysis Atrial fibrillation on anticoagulation with Eliquis rate control with metoprolol Congestive heart failure chronic diastolic Hypoxic respiratory failure needing oxygen supplementation on admission. Continue diuresis. Chest x-ray with diffuse lung disease consider pulmonary edema or less likely pneumonia History of GI bleed with gastric ulceration. On PPI Moderate aortic stenosis Hypertension DVT prophylaxis on Eliquis Code status full code Subjective Date/time seen: 09/29/22 09:57 Interval history: 82-year-old male with a past medical history of ESRD on dialysis who presented to the ER with complaints of fall.? Patient states he woke up this morning around 3:00 a.m. and got up from the bed and walk for 5 steps and fell down because his legs gave up and he felt really weak.?? 09/29/2022: Patient complains of sore throat today. Ongoing for some time. Getting throat lozenges which helps some. He is getting dialysis. He reports the dialysis catheter fell off needed to be placed while he was in this hospital breathing is stable Review of Systems Review of Systems: All systems reviewed & are unremarkable except as noted in HPI and below Exam Narrative: General: male in NAD Skin bruises noted on his chest wall superficial Heart: normal S1 and S2; Irregular irregular rhythm no rub or gallop Lungs: Diminished breath sounds bilaterally. On nasal cannula oxygen Abdomen: soft, nontender, nondistended, positive bowel sounds Extremities: 1+ edema noted bilateral lower extremity Neurological: Alert and oriented x3 cranial nerves 2-12 generalized weakness noted Objective Data Vital Signs Vital Signs: Vital Signs - 24 hr 09/28/22 10:00 09/28/22 10:20 09/28/22 10:40 Temperature Pulse Rate 72 103 H 88 Respiratory Rate Blood Pressure 110/84 113/88 113/79 Pulse Oximetry Oxygen Delivery Oxygen Flow Rate 09/28/22 11:00 09/28/22 11:20 09/28/22 11:40 Temperature Pulse Rate 83 94 95 Respiratory Rate Blood Pressure 101/79 120/82 120/85 Pulse Oximetry
[2022-09-29 13:08] LABS: Hepatitis Be Antibody Nonreactive
--- NOTE | 2022-09-29 13:09 | P.PNNP_ITS ---
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 The creatinine nancy from 3.9-4.9. * HD today and continue/resume T/T/S dialysis schedule * the hope is for possible renal recovery but getting dialytic support until this occurs * unfortunately, he has been dialysis dependent for almost 3 months * hold cytoxan due to leukopenia and thrombocytopenia, but continue steroids * follow trend of repeat labs and UOP (to assess for potential renal recovery) (2) Chronic kidney disease, stage IV (severe): Code(s): N18.4 - Chronic kidney disease, stage 4 (severe) Status: Chronic Assessment and Plan: * since 2019, creatinine has been running ~ 1.4 - 1.7mg/dl * however, in July 2021, it increased to 1.93mg/dl * then, in March 2022, it was 2.32mg/dl * on discharge in early May 2022, it was 3.3mg/dl * outpatient labs on 05/28/22, creatinine up to 4.4mg/dl * probably has some underlying chronic kidney disease due to HTN, vascular disease/CHF, and age * not clear when microscopic polyangiitis started ... (3) Leukopenia: Code(s): D72.819 - Decreased white blood cell count, unspecified Status: Acute Assessment and Plan: * likely secondary to cytoxan * hold this for now * follow WBC (4) Bacteremia: Code(s): R78.81 - Bacteremia Status: Acute Assessment and Plan: * noted but only 1 out of 2 sets -- likely contamination * follow repeat cultures * on Zithromax and ceftriaxone. * no fever (5) Fall: Code(s): W19.XXXA - Unspecified fall, initial encounter Status: Acute Assessment and Plan: * possibly due to previous diarrhea * r/o infection given immunosuppression * PT/OT as tolerated (6) Hypertension: Code(s): I10 - Essential (primary) hypertension Status: Chronic Assessment and Plan: * reasonable control * follow trend of hemodynamics (7) Atrial fibrillation: Code(s): I48.91 - Unspecified atrial fibrillation Status: Acute Assessment and Plan: * rate control strategy * on metoprolol * on anticoagulation (8) Anemia: Code(s): D64.9 - Anemia, unspecified Status: Chronic Assessment and Plan: * due to RAMIRO, CKD, and dialysis dependence * Epogen with HD * follow H/H Will continue to follow. Subjective Date/time seen: 09/29/22 13:09 Interval history: Follow-up for RAMIRO on CKD requiring renal replacement therapy/hemodialysis. Tolerated dialysis yesterday without any issue or problems; major complaint is that of weakness/fatigue as well as a sore throat; reports breathing/respiratory status is stable but remains on supplemental oxygen on my visit. Exam Narrative: General: WD/WN elderly male in NAD Heart: normal S1 and S2; Irregular irregular rhythm Lungs: clear bilaterally Abdomen: soft, nontender, nondistended, positive bowel sounds Extremities: 1+ edema noted Skin: no rash or nodules Objective Data Vital Signs Vital S
--- NOTE | 2022-09-29 13:09 | PM.PNNEP ---
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 The creatinine nancy from 3.9-4.9. HD today and continue/resume T/T/S dialysis schedule the hope is for possible renal recovery but getting dialytic support until this occurs unfortunately, he has been dialysis dependent for almost 3 months hold cytoxan due to leukopenia and thrombocytopenia, but continue steroids follow trend of repeat labs and UOP (to assess for potential renal recovery) (2) Chronic kidney disease, stage IV (severe): Code(s): N18.4 - Chronic kidney disease, stage 4 (severe) Status: Chronic Assessment and Plan: since 2019, creatinine has been running ~ 1.4 - 1.7mg/dl however, in July 2021, it increased to 1.93mg/dl then, in March 2022, it was 2.32mg/dl on discharge in early May 2022, it was 3.3mg/dl outpatient labs on 05/28/22, creatinine up to 4.4mg/dl probably has some underlying chronic kidney disease due to HTN, vascular disease/CHF, and age not clear when microscopic polyangiitis started ... (3) Leukopenia: Code(s): D72.819 - Decreased white blood cell count, unspecified Status: Acute Assessment and Plan: likely secondary to cytoxan hold this for now follow WBC (4) Bacteremia: Code(s): R78.81 - Bacteremia Status: Acute Assessment and Plan: noted but only 1 out of 2 sets -- likely contamination follow repeat cultures on Zithromax and ceftriaxone. no fever (5) Fall: Code(s): W19.XXXA - Unspecified fall, initial encounter Status: Acute Assessment and Plan: possibly due to previous diarrhea r/o infection given immunosuppression PT/OT as tolerated (6) Hypertension: Code(s): I10 - Essential (primary) hypertension Status: Chronic Assessment and Plan: reasonable control follow trend of hemodynamics (7) Atrial fibrillation: Code(s): I48.91 - Unspecified atrial fibrillation Status: Acute Assessment and Plan: rate control strategy on metoprolol on anticoagulation (8) Anemia: Code(s): D64.9 - Anemia, unspecified Status: Chronic Assessment and Plan: due to RAMIRO, CKD, and dialysis dependence Epogen with HD follow H/H Will continue to follow. Subjective Date/time seen: 09/29/22 13:09 Interval history: Follow-up for RAMIRO on CKD requiring renal replacement therapy/hemodialysis. Tolerated dialysis yesterday without any issue or problems; major complaint is that of weakness/fatigue as well as a sore throat; reports breathing/respiratory status is stable but remains on supplemental oxygen on my visit. Exam Narrative: General: WD/WN elderly male in NAD Heart: normal S1 and S2; Irregular irregular rhythm Lungs: clear bilaterally Abdomen: soft, nontender, nondistended, positive bowel sounds Extremities: 1+ edema noted Skin: no rash or nodules Objective Data Vital Signs Vital Signs: Vital Signs Temp Pulse Resp BP Pulse Ox O2 Del Method O2 Flow Rate 09/29/22 13:00 96.7 F L 94 20 108/85 95 09/29/22 08:42 91 Nasal Cannula 2 09/29/22 08:29 100 09/29/22 05:14 96.5 F L 100 16 114/77 93 09/28/22 20:00 92 Nasal Cannula 2 09/28/22 21:51 96.3 F L 108 H 16 97/73 L 85 L 09/28/22 16:00 96.2 F L 91 20 127/78 97 Intake/Output Intake/Output: Intake & Output 09/26/22 09/27/22 09/28/22 09/29/22 23:59 23:59 23:59 23:59 Intake Total 2009 1
[2022-09-29 13:35] LABS: Strep Group A RT-PCR NOT DETECTED (Negative)
[2022-09-30] VITALS (22 sets, daily range): BP systolic 90–156; BP diastolic 66–120; PULSE 71–170; RESP 16–32; TEMP 36–36.9; O2SAT 90–100; BMI 39.4
[2022-09-30] MEDS: HYDROcodone/acetaminophen (*CRX) 5-325 MG TABLET 1 TAB PO ×3 (00:31→20:42)
[2022-09-30 06:27] LABS: Basophils Percent Auto 0.3 % (0.2-1.2); Hematocrit 28.6 % (42.0-52.0); Hemoglobin 9.1 g/dL (14.0-18.0); Immature Granulocyte Absolute 0.14 K/mm3 (0.00-0.031); Immature Granulocyte Percent A 4.3 % (0-0.5); Lymphocytes Absolute Auto 0.15 K/mm3 (0.9-3.2); Lymphocytes Percent Auto 4.6 % (18.3-44.2); Mean Corpuscular HGB Conc 31.8 g/dl (32-36); Mean Corpuscular Hemoglobin 34.1 pg (26-34); Mean Corpuscular Volume 107.1 fl (80-100); Mean Platelet Volume 9.8 fl (7.4-10.4); Monocytes Absolute Auto 0.2 K/mm3 (0.1-0.6); Monocytes Percent Auto 4.6 % (2.6-8.5); Neutrophils Absolute Auto 2.8 K/mm3 (1.3-6.7); Neutrophils Percent Auto 86.2 % (45.5-73.1); Nucleated Red Blood Cells Perc 1.2 % (0.0-0.2); Platelet Count Result 153 k/mm3 (150-375); Red Blood Count 2.67 M/mm3 (4.6-6.20); Red Cell Distribution Width 16.6 % (11.5-14.5); White Blood Count 3.2 K/mm3 (4.5-10.0)
[2022-09-30 06:43] LABS: Alanine Aminotransferase 27 U/L (6-50); Albumin Level 3.3 g/dL (3.5-5.1); Alkaline Phosphatase 44 U/L (38-126); Anion Gap 10 mmol/L (8-16); Aspartate Amino Transferase 40 U/L (17-59); Bilirubin,Total 0.5 mg/dL (0.2-1.3); Blood Urea Nitrogen 67 mg/dL (9-20); Calcium 8.4 mg/dL (8.4-10.2); Carbon Dioxide 29 mmol/L (22-30); Chloride 98 mmol/L (98-107); Estimated CRCL calculation 13 ml/min; Estimated Glomerular Filt Rate 9; Glucose 95 mg/dL (65-110); Magnesium 2.1 mg/dL (1.6-2.3); Potassium 4.9 mmol/L (3.4-5.0); Sodium 137 mmol/L (137-145)
[2022-09-30 07:07] LABS: Burr Cells 1+ (NORMAL); Platelet Estimate Adequate (Adequate); Poikilocytosis 1+ (NORMAL); Schistocytes Rare (NORMAL)
--- NOTE | 2022-09-30 09:12 | PCPTNOTE ---
Patient declined PT at this time stating he is waiting to go to dialysis. Patient requests PT return later today. PT will continue to follow per plan of care.
--- NOTE | 2022-09-30 09:50 | PC.NURSE ---
Per dialysis nurse, medications not administered this morning due to dialysis scheduled. Will administer medications once patient returns to the floor. Medications will be late
--- NOTE | 2022-09-30 09:58 | PCOTNOTE ---
Attempted to see Patient at this time. Patient unavailable, out of the room , in dialysis.
--- NOTE | 2022-09-30 11:29 | PM.IMPN ---
Progress Note: A&P Assessment and Plan (1) Fall: Code(s): W19.XXXA - Unspecified fall, initial encounter Status: Acute Assessment and Plan: Status post fall and generalized weakness. Likely secondary to recent diarrhea and dehydration and also being on chemotherapy causing him to be immunosuppressed. His diarrhea has resolved now. PT OT consulted. patient does not want to go to rehab. Home health will be arranged (2) ESRD (end stage renal disease) on dialysis: Code(s): N18.6 - End stage renal disease; Z99.2 - Dependence on renal dialysis Status: Acute Assessment and Plan: Nephrology consulted. Patient receiving dialysis his dialysis catheter came out during dialysis. General surgery consulted and replaced dialysis catheter Resume dialysis per Nephrology (3) Leukopenia: Code(s): D72.819 - Decreased white blood cell count, unspecified Status: Acute Assessment and Plan: Likely secondary to chemo therapy. Monitor CBC. Blood culture is negative so far. Staphylococcus epidermidis in 1 aerobic bottle only, likely contaminant. MRSA screen is also negative. Antibiotic stoppedstrep thorat swab is negative. will get ct soft tissue neck to furthe revaluate (4) Hypertension: Code(s): I10 - Essential (primary) hypertension Status: Chronic Assessment and Plan: Resume home meds (5) Diarrhea: Qualifiers: Diarrhea type: unspecified type Qualified Code(s): R19.7 - Diarrhea, unspecified Code(s): R19.7 - Diarrhea, unspecified Status: Acute Assessment and Plan: Resolved Plan Biopsy-proven focal crescentic necrotizing pauci immune glomerulonephritis. P-ANCA positive on steroid and cyclophosphamide treated with pulse dose steroids and IV Cytoxan in May 2022. On Cytoxan and steroid currently Chronic anemia likely due to CKD. Epogen with hemodialysis Atrial fibrillation on anticoagulation with Eliquis rate control with metoprolol Congestive heart failure chronic diastolic Hypoxic respiratory failure needing oxygen supplementation on admission. Continue diuresis. Chest x-ray with diffuse lung disease consider pulmonary edema or less likely pneumonia History of GI bleed with gastric ulceration. On PPI Moderate aortic stenosis Hypertension DVT prophylaxis on Eliquis Code status full code Subjective Date/time seen: 09/30/22 11:29 Interval history: 82-year-old male with a past medical history of ESRD on dialysis who presented to the ER with complaints of fall.? Patient states he woke up this morning around 3:00 a.m. and got up from the bed and walk for 5 steps and fell down because his legs gave up and he felt really weak.?? 09/29/2022: Patient complains of sore throat today. Ongoing for some time. Getting throat lozenges which helps some. He is getting dialysis. He reports the dialysis catheter fell off needed to be placed while he was in this hospital breathing is stable 09/30/2022: seen during dialyis today. neck is still sore. repoted strp throat is negative. breathing is still a bit coarse and raspy inthe morning. no other compalints today. Review of Systems Review of Systems: All systems reviewed & are unremarkable except as noted in HPI and below Exam Narrative: General: male in NAD Skin bruises noted on his chest wall superficial Heart: normal S1 and S2; Irregular irregular rhythm no rub or gallop Lungs: Diminished breath sounds bilaterally. On nasal cannula oxygen Abdomen: soft, nontender, nondistended, positive bowel sounds Extremities: 1+ edema noted bilateral lower extremity Neurological: Alert and oriented x3 cranial nerves 2-12 generalized weakness noted Objective Data Vital Signs Vital Signs: Vital Signs - 24 hr 09/29/22 14:00 09/29/22 20:21 09/29/22 20:00 Temperature 96.7 F L Pulse Rate 94 88 88 Respiratory Rate 20 20 Blood Pressure 108/85 Pulse Oxime
--- NOTE | 2022-09-30 11:49 | PM.PNNEP ---
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 -- this would argue in favor of microscopic polyangiitis s/p pulse dose steroids and on oral prednisone s/p IV cytoxan (on 06/10/22) and on oral cytoxan still making urine but BUN + creatinine rise in-between HD treatments HD today and continue T/T/S dialysis schedule the hope is for possible renal recovery but getting dialytic support until this occurs unfortunately, he has been dialysis dependent for almost 3 months hold cytoxan due to leukopenia and thrombocytopenia, but continue steroids follow trend of repeat labs and UOP (to assess for potential renal recovery) (2) Chronic kidney disease, stage IV (severe): Code(s): N18.4 - Chronic kidney disease, stage 4 (severe) Status: Chronic Assessment and Plan: since 2019, creatinine has been running ~ 1.4 - 1.7mg/dl however, in July 2021, it increased to 1.93mg/dl then, in March 2022, it was 2.32mg/dl on discharge in early May 2022, it was 3.3mg/dl outpatient labs on 05/28/22, creatinine up to 4.4mg/dl probably has some underlying chronic kidney disease due to HTN, vascular disease/CHF, and age not clear when microscopic polyangiitis started ... (3) Acute hypoxemic respiratory failure: Code(s): J96.01 - Acute respiratory failure with hypoxia Status: Acute Assessment and Plan: as noted on admission still requiring supplemental oxygen CXR results noted attempting to push fluid removal with dialysis on antibiotics for possible pneumonia (4) Leukopenia: Code(s): D72.819 - Decreased white blood cell count, unspecified Status: Acute Assessment and Plan: likely secondary to cytoxan hold this for now follow WBC (5) Bacteremia: Code(s): R78.81 - Bacteremia Status: Acute Assessment and Plan: noted but only 1 out of 2 sets -- likely contamination follow repeat cultures on antibiotics no fever (6) Fall: Code(s): W19.XXXA - Unspecified fall, initial encounter Status: Acute Assessment and Plan: possibly due to previous diarrhea r/o infection given immunosuppression PT/OT as tolerated (7) Hypertension: Code(s): I10 - Essential (primary) hypertension Status: Chronic Assessment and Plan: reasonable control follow trend of hemodynamics (8) Atrial fibrillation: Code(s): I48.91 - Unspecified atrial fibrillation Status: Acute Assessment and Plan: rate control strategy on metoprolol on anticoagulation (9) Anemia: Code(s): D64.9 - Anemia, unspecified Status: Chronic Assessment and Plan: due to RAMIRO, CKD, and dialysis dependence Epogen with HD follow H/H Will continue to follow. Subjective Date/time seen: 09/30/22 11:49 Interval history: Follow-up for RAMIRO on CKD requiring renal replacement therapy/hemodialysis. Tolerating hemodialysis treatment reasonably well at the time of my visit (seen on HD at ~ 11:35AM); still reports that his throat is sore and now with associated pain in his neck; breathing is still a bit rough with recent CXR results noted; no acute distress noted. Exam Narrative: General: WD/WN elderly male in NAD Heart: normal S1 and S2; irregular irregular; no rub Lungs: coarse breath sounds Abdomen: soft, nontender, nondistended, positive bowel sounds Extremities: no cyanosis or clubbing; 1+ edema Skin: warm and dry Objective Data Vital Signs Vital Signs: Vital Signs Temp Pulse Resp BP Pulse Ox O2 Del Method O2 Flow Rate 09/30/22 11:40 103 H 127/102 H 09/30/22 11:20 100 134/98 H 09/30/22 11:00 99 153/104 H 09/30/22
--- NOTE | 2022-09-30 11:49 | P.PNNP_ITS ---
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 in favor of microscopic polyangiitis * s/p pulse dose steroids and on oral prednisone * s/p IV cytoxan (on 06/10/22) and on oral cytoxan * still making urine but BUN + creatinine rise in-between HD treatments * HD today and continue T/T/S dialysis schedule * the hope is for possible renal recovery but getting dialytic support until this occurs * unfortunately, he has been dialysis dependent for almost 3 months * hold cytoxan due to leukopenia and thrombocytopenia, but continue steroids * follow trend of repeat labs and UOP (to assess for potential renal recovery) (2) Chronic kidney disease, stage IV (severe): Code(s): N18.4 - Chronic kidney disease, stage 4 (severe) Status: Chronic Assessment and Plan: * since 2019, creatinine has been running ~ 1.4 - 1.7mg/dl * however, in July 2021, it increased to 1.93mg/dl * then, in March 2022, it was 2.32mg/dl * on discharge in early May 2022, it was 3.3mg/dl * outpatient labs on 05/28/22, creatinine up to 4.4mg/dl * probably has some underlying chronic kidney disease due to HTN, vascular disease/CHF, and age * not clear when microscopic polyangiitis started ... (3) Acute hypoxemic respiratory failure: Code(s): J96.01 - Acute respiratory failure with hypoxia Status: Acute Assessment and Plan: * as noted on admission * still requiring supplemental oxygen * CXR results noted * attempting to push fluid removal with dialysis * on antibiotics for possible pneumonia (4) Leukopenia: Code(s): D72.819 - Decreased white blood cell count, unspecified Status: Acute Assessment and Plan: * likely secondary to cytoxan * hold this for now * follow WBC (5) Bacteremia: Code(s): R78.81 - Bacteremia Status: Acute Assessment and Plan: * noted but only 1 out of 2 sets -- likely contamination * follow repeat cultures * on antibiotics * no fever (6) Fall: Code(s): W19.XXXA - Unspecified fall, initial encounter Status: Acute Assessment and Plan: * possibly due to previous diarrhea * r/o infection given immunosuppression * PT/OT as tolerated (7) Hypertension: Code(s): I10 - Essential (primary) hypertension Status: Chronic Assessment and Plan: * reasonable control * follow trend of hemodynamics (8) Atrial fibrillation: Code(s): I48.91 - Unspecified atrial fibrillation Status: Acute Assessment and Plan: * rate control strategy * on metoprolol * on anticoagulation (9) Anemia: Code(s): D64.9 - Anemia, unspecified Status: Chronic Assessment and Plan: * due to RAMIRO, CKD, and dialysis dependence * Epogen with HD * follow H/H Will continue to follow. Subjective Date/time seen: 09/30/22 11:49 Interval history: Follow-up for RAMIRO on CKD requiring renal replacement therapy/hemodialysis. Tolerating hemodialysis treatment reasonably well at the time of my visit (seen on HD at ~ 11:35AM); still reports that his throat is sore and now with associated pain in his neck; breathing is still a bit rough with recent CXR results noted; no acute distress noted. Exam
[2022-09-30] MEDS: EPOETIN ALFA-EPBX 10,000 UNITS/ML VIAL 10000 UNITS IV PUSH (11:56)
--- NOTE | 2022-09-30 12:58 | PCOTNOTE ---
Attempted to see Patient for P.M. treatment session. Patient has not returned to the room, still in dialysis at this time.
--- NOTE | 2022-09-30 13:24 | ECG_ITS ---
Measurements Intervals [place] Rate: 116 P: [place]: 0 QRS: -1 QRSD: 90 T: 39 QT: 290 QTc: 404 Interpretive Statements ATRIAL FIBRILLATION WITH RAPID VENTRICULAR RESPONSE BASELINE ARTIFACT- I, II, AVR, AVL, AVF, V1-V2 ABNORMAL ECG COMPARED TO ECG 09/23/2022 04:53:52 HEART RATE HAS INCREASED Electronically Signed On 09-30-2022 14:04:59 CDT by Luca Kaufman D.O.
[2022-09-30] MEDS: METOPROLOL TARTRATE INJ 5 MG/5 ML VIAL IV PUSH (13:35)
[2022-09-30] MEDS: GLUCOSE ORAL GEL 15 GM OF GLUCSE IN 37.5 GM TUBE (14:01)
[2022-09-30] MEDS: METOPROLOL TARTRATE INJ 5 MG/5 ML VIAL (14:01)
[2022-09-30] MEDS: DEXTROSE 50% 25 GM/50 ML SYRINGE IV PUSH (14:01)
[2022-09-30] MEDS: METOPROLOL TARTRATE 50 MG TAB PO (14:06)
[2022-09-30] MEDS: MEPERIDINE HCL INJ (*CRX) 50 MG/ML AMPUL 12.5 MG IV PUSH (14:12)
[2022-09-30] MEDS: amLODIPine BESYLATE 5 MG TABLET PO (14:19)
[2022-09-30] MEDS: FUROSEMIDE 40 MG TABLET PO (14:20)
[2022-09-30] MEDS: APIXABAN 2.5 MG TABLET PO (14:20)
[2022-09-30] MEDS: PANTOPRAZOLE 40 MG TABLET PO (14:21)
[2022-09-30] MEDS: predniSONE 10 MG TABLET PO (14:21)
[2022-09-30] MEDS: FAMOTIDINE 20 MG TABLET PO ×2 (14:21→20:43)
[2022-09-30 14:22] LABS: Alveolar/Arterial O2 Gradient 109.3 mmHg; Base Excess ABG -0.4 mEq/l (+/-2.0); Fractional Inspired Oxygen 28 %; HCO3 ABG 23.3 mEq/l (22.0-26.0); Oxygen Content ABG 12.6 %vol (16.0-22.0); PCO2 ABG 34.8 mmHg (35.0-45.0); PO2 FiO2 Ratio Arterial Blood 1.76 %; pH ABG 7.443 (7.350-7.450)
[2022-09-30 14:25] LABS: Oxygen Saturation ABG 86.7 % (95.0-100.0); Oxyhemoglobin 81.1 % THb (90.0-100.0)
[2022-09-30 14:26] LABS: Device HIGH FLOW NASAL CANN; PO2 ABG 49.3 mmHg (80.0-100.0); Site Drawn LEFT BRACHIAL
[2022-09-30 14:51] LABS: Glucose Point of Care 68 mg/dl (65-105)
[2022-09-30 14:51] LABS: Glucose Point of Care 136 mg/dl (65-105)
[2022-09-30 14:51] LABS: Glucose Point of Care 65 mg/dl (65-105)
[2022-09-30 15:10] LABS: Hematocrit 29.9 % (42.0-52.0); Hemoglobin 9.5 g/dL (14.0-18.0); Mean Corpuscular HGB Conc 31.8 g/dl (32-36); Mean Corpuscular Hemoglobin 33.9 pg (26-34); Mean Corpuscular Volume 106.8 fl (80-100); Mean Platelet Volume 10.1 fl (7.4-10.4); Platelet Count Result 169 k/mm3 (150-375); Red Cell Distribution Width 16.6 % (11.5-14.5); White Blood Count 2.9 K/mm3 (4.5-10.0)
[2022-09-30 15:18] LABS: Lactic Acid Reflex 2.2 mmol/L (0.7-2.0)
[2022-09-30 15:22] LABS: Alanine Aminotransferase 27 U/L (6-50); Albumin Level 3.5 g/dL (3.5-5.1); Alkaline Phosphatase 49 U/L (38-126); Anion Gap 9 mmol/L (8-16); Aspartate Amino Transferase 48 U/L (17-59); Bilirubin,Total 0.7 mg/dL (0.2-1.3); Blood Urea Nitrogen 47 mg/dL (9-20); Calcium 8.2 mg/dL (8.4-10.2); Carbon Dioxide 29 mmol/L (22-30); Chloride 98 mmol/L (98-107); Estimated CRCL calculation 17 ml/min; Estimated Glomerular Filt Rate 13; Glucose 129 mg/dL (65-110); Magnesium 1.9 mg/dL (1.6-2.3); Potassium 4.4 mmol/L (3.4-5.0); Sodium 136 mmol/L (137-145)
[2022-09-30 15:43] LABS: Troponin I 0.105 ng/mL (0.000-0.034)
--- NOTE | 2022-09-30 16:26 | PC.NURSE ---
This patient, Arthur Cantor Jr., was received from [[id number] ] on 09/30/22 at 1426. Patient/family oriented to unit policies and routines
--- NOTE | 2022-09-30 16:35 | PC.NURSE ---
at approx 1315 this nurse got a call from dialysis nurse stating that pt was unstable in dialysis room. dialysis nurse stated pt heart rate was tachycardic and b/p was low. She also stated that she had to take pt off dialysis early. This nurse went in dialysis room and noticed pt was shaky and looked in distress. this nurse asked another nurse to call provider while I did an assessment, took a set of vitals, and got report on pt. pt had htn, but o2 sat was 96. Pt was awake and oriented. Provider came into dialysis room approx 3 mins later and was given an update on pt status. provider asked this nurse to put in orders for ekg, which I did. Provider asked pt to be transported back to his room. Once in the room, ekg was obtained and found that pt was in afib, with rvr. Another set of vitals were taken and pt O2 sat was 79%. A rapid response was called on pt. Pt was put on NC high flow 10L. Pt. glucose level was taken and pt found to be hypoglycemic. oral glucose was given and blood sugar rechecked. pt still hypoglycemic and was given D50 through his IV. provider ordered pt to be put on tele monitor, labs, chest xray, 12.5 mg demerol, and lopressor to be given. The heart rate decreased to 110-120 after lopressor was given and O2 sat improved to 100%. Pt was returned to NC 2L. glucose was rechecked and blood sugar was 136. Pt was then transported to IMU and report was given bedside to nurse. Pt was drowsy but easily arousable. Pt looked less shaky throughout but visible tremors in hands. Pt family was called with no answer. This nurse left a voicemail stating pt was moved to a new room, pt was stable, and to call back to get an update.
[2022-09-30 16:39] LABS: Glucose Point of Care 107 mg/dl (65-105)
[2022-09-30] MEDS: FUROSEMIDE INJ 40 MG/4 ML VIAL IV PUSH (16:45)
--- NOTE | 2022-09-30 16:54 | PCPTNOTE ---
The patient treatment was not able to be completed this afternoon due to change in patient's medical status and patient transferred from medical floor to IMU. PT will follow up with physician to hold or resume PT when medically able.
[2022-09-30 18:03] LABS: Reflex Lactic Acid Yes or No Add Lactic
--- NOTE | 2022-09-30 18:03 | PM.EVENT ---
Event Note Event Note Event Note: I was called to evaluate the patient during the dialysis where he started having shivering. He denied any shortness of breath or chest pain. His heart rate was bumping into 180s during the dialysis his blood pressure was lowered he received up fluid bolus awful L during the dialysis prior to arrival. His temperature was normal his blood pressure was adequate however his heart rate was in 120s when we placed on a telemetry. His blood sugar was checked and was down to 65 for which oral glucose gel was provided. Subsequently IV dextrose was also provided. With improvement in his blood sugar. IV metoprolol 5 mg was given for his AFib with RVR. EKG was done which showed the same. Demerol was later given for his shaking which helped. Because of the shaking SpO2 was not registered adequately. ABG was obtained Which did show hypoxia with PO2 of 49. oxygenation was maintained with high-flow nasal cannula oxygen. Blood culture and routine labs were obtained. Lactic acid came back mildly elevated. CT chest was done which showed diffuse opacities bilateral lung suggestive of pulmonary edema versus pneumonia. Will started broad-spectrum antibiotic with vancomycin and cefepime. Will also give him dose of Lasix. Discussed open soaper tender. Will moved to IMU status. Discussed with the nursing staff. Oxygenation has worsened requiring 6-8 L high-flow nasal cannula. He was on 2-3 L nasal cannula prior to this. BiPAP prn ordered for hypoxia or resp distress
[2022-09-30] MEDS: CEFEPIME 1 GM/NS 50 ML 1 GM/50 ML BAG IVPB (18:17)
[2022-09-30 18:27] LABS: Influenza A QL RT-PCR Negative (Negative); Influenza B QL RT-PCR Negative (Negative); RSV RNA, RT-PCR Negative (Negative); SARS-CoV-2 RNA PCR Negative (Negative)
[2022-09-30 18:43] LABS: Troponin I 0.119 ng/mL (0.000-0.034)
[2022-09-30 19:42] LABS: Lactic Acid 1.8 mmol/L (0.7-2.0)
[2022-09-30] MEDS: methylPREDNISolone SOD SUCC 40 MG VIAL IV PUSH (20:43)
[2022-09-30] MEDS: FLUTICASONE PROPIONATE 0.05% NA SPR 16 GM BTL (*BKC) 1 SPRAY NASAL (20:48)
[2022-09-30 20:54] LABS: Glucose Point of Care 277 mg/dl (65-105)
[2022-09-30 21:41] LABS: Troponin I 0.117 ng/mL (0.000-0.034)
[2022-10-01] VITALS (26 sets, daily range): BP systolic 98–158; BP diastolic 69–105; PULSE 81–122; RESP 16–24; TEMP 35.6–36.6; O2SAT 90–100
[2022-10-01] MEDS: HYDROcodone/acetaminophen (*CRX) 5-325 MG TABLET 1 TAB PO ×2 (05:48→20:30)
[2022-10-01] MEDS: methylPREDNISolone SOD SUCC 40 MG VIAL IV PUSH ×3 (05:49→21:30)
[2022-10-01 06:49] LABS: INR 1.2; Prothrombin Time 15.4 Seconds (11.1-14.7)
[2022-10-01 06:55] LABS: Estimated CRCL calculation 14 ml/min; Estimated Glomerular Filt Rate 10
[2022-10-01 07:05] LABS: Hematocrit 28.6 % (42.0-52.0); Hemoglobin 9.2 g/dL (14.0-18.0); Mean Corpuscular HGB Conc 32.2 g/dl (32-36); Mean Corpuscular Hemoglobin 34.6 pg (26-34); Mean Corpuscular Volume 107.5 fl (80-100); Mean Platelet Volume 10.3 fl (7.4-10.4); Platelet Count Result 165 k/mm3 (150-375); Red Blood Count 2.66 M/mm3 (4.6-6.20); Red Cell Distribution Width 16.5 % (11.5-14.5)
[2022-10-01 07:40] LABS: Anion Gap 10 mmol/L (8-16); Blood Urea Nitrogen 60 mg/dL (9-20); Calcium 8.3 mg/dL (8.4-10.2); Carbon Dioxide 28 mmol/L (22-30); Chloride 98 mmol/L (98-107); Estimated CRCL calculation 14 ml/min; Estimated Glomerular Filt Rate 10; Glucose 135 mg/dL (65-110); Potassium 4.8 mmol/L (3.4-5.0); Sodium 136 mmol/L (137-145)
[2022-10-01 07:42] LABS: Glucose Point of Care 140 mg/dl (65-105)
--- NOTE | 2022-10-01 08:12 | PC.NURSE ---
Patient taken to dialysis
--- NOTE | 2022-10-01 09:06 | PM.CNPUL ---
Assessment and Plan Assessment and plan (1) Respiratory failure: Code(s): J96.90 - Respiratory failure, unspecified, unspecified whether with hypoxia or hypercapnia Status: Acute (2) ESRD (end stage renal disease) on dialysis: Code(s): N18.6 - End stage renal disease; Z99.2 - Dependence on renal dialysis Status: Acute (3) Acute hypoxemic respiratory failure: Code(s): J96.01 - Acute respiratory failure with hypoxia Status: Acute Assessment and Plan: 82-year-old man with a microscopic polyangiitis on immunosuppression since mid May, chronic renal failure on hemodialysis 3 days a week, presented with generalized weakness approximately 8 days ago. He was found to have leukopenia thrombocytopenia most likely related to immunosuppression which has been held by Nephrology services. Worsening of hypoxemia with new pulmonary infiltrates noted 2 days ago with chest imaging studies including chest CT raising question of congestive heart failure versus pneumonia. In addition to bilateral symmetrical pulmonary infiltrates the patient had evidence of fluid overload with pleural effusions bilaterally and marked pedal edema. Since last night his respiratory status and gas exchange have improved following hemodialysis which makes congestive heart failure most likely rather than pneumonia. Chest x-ray done this a.m. was more consistent with a congestive heart failure. Given severe immunosuppression with leukopenia, bilateral infiltrates could be related to atypical pneumonia like Pneumocystis jiroveci. Patient has been NPO in case he needs bronchoscopy with BAL. viral studies for COVID RSV and influenza negative so far. Plan: Patient will be reassessed post dialysis which will remove more than couple of L of fluid. Keep the patient NPO for now. Will continue to monitor respiratory status and consider bronchoscopy with a BAL later on today versus a.m. tomorrow if no improvement of respiratory status. I would hold Rafaelais at this point. (4) Atrial fibrillation: Qualifiers: Atrial fibrillation type: unspecified Qualified Code(s): I48.91 - Unspecified atrial fibrillation Code(s): I48.91 - Unspecified atrial fibrillation Status: Acute (5) Microscopic polyangiitis: Code(s): M31.7 - Microscopic polyangiitis Status: Acute History of Present Illness History of Present Illness Consult date: 10/01/22 Chief complaint: respiratory failure Narrative: This is a consultation for hypoxemia. The patient is well known to Pulmonary Services. He was 1st evaluated in mid May for respiratory failure, hypoxemia, hemoptysis and renal failure for few weeks despite treatment for congestive heart failure and pneumonia. 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 Microscopic polyangiitis was subsequently confirmed by renal biopsy. Since then the patient has been under the care of Nephrology Services and has been on immunosuppression for microscopic polyangiitis. In particular he has been on prednisone 40 mg daily and Cytoxan 100 mg daily. He is also having dialysis 3 days a week as his renal function has not recovered. The patient was in his usual state of health until approximately a couple weeks prior to this admission when he started to notice increasing weakness. He had no symptoms such as fever chills hemoptysis night sweats or increasing shortness of breath. On the day of admission, which was 8 days ago, he fell at home and presented to the emergency room. Workup in the emergency room showed leukopenia, thrombocytopenia. He was mildly hypoxemic receiving supplemental oxygen but his chest x-ray was about baseline compared to last x-ray available in early July. The patient has received antibiotics for possible pneumonia. Cyclophosphamide has been held and patient is on IV Solu-Medrol. His gas exchange had remained essentially uncha
[2022-10-01] MEDS: SODIUM CHLORIDE 0.9% IV 1,000 ML 999 ML IV CONT (09:11)
--- NOTE | 2022-10-01 11:00 | PM.PNNEP ---
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 hold cytoxan due to leukopenia and thrombocytopenia, but continue steroids follow trend of repeat labs and UOP (to assess for potential renal recovery) (2) Chronic kidney disease, stage IV (severe): Code(s): N18.4 - Chronic kidney disease, stage 4 (severe) Status: Chronic Assessment and Plan: since 2019, creatinine has been running ~ 1.4 - 1.7mg/dl however, in July 2021, it increased to 1.93mg/dl then, in March 2022, it was 2.32mg/dl on discharge in early May 2022, it was 3.3mg/dl outpatient labs on 05/28/22, creatinine up to 4.4mg/dl probably has some underlying chronic kidney disease due to HTN, vascular disease/CHF, and age not clear when microscopic polyangiitis started ... (3) Acute hypoxemic respiratory failure: Code(s): J96.01 - Acute respiratory failure with hypoxia Status: Acute Assessment and Plan: as noted on admission still requiring supplemental oxygen CXR and CT of chest results noted attempting to push fluid removal with dialysis DUF (dry ultrafiltration) today for further fluid removal on antibiotics for possible pneumonia Pulmonary recommendations noted (4) Leukopenia: Code(s): D72.819 - Decreased white blood cell count, unspecified Status: Acute Assessment and Plan: likely secondary to cytoxan hold this for now follow WBC (5) Bacteremia: Code(s): R78.81 - Bacteremia Status: Acute Assessment and Plan: noted but only 1 out of 2 sets -- likely contamination follow repeat cultures on antibiotics no fever (6) Fall: Code(s): W19.XXXA - Unspecified fall, initial encounter Status: Acute Assessment and Plan: possibly due to previous diarrhea r/o infection given immunosuppression PT/OT as tolerated (7) Hypertension: Code(s): I10 - Essential (primary) hypertension Status: Chronic Assessment and Plan: reasonable control follow trend of hemodynamics (8) Atrial fibrillation: Code(s): I48.91 - Unspecified atrial fibrillation Status: Acute Assessment and Plan: rate control strategy on metoprolol on anticoagulation (9) Anemia: Code(s): D64.9 - Anemia, unspecified Status: Chronic Assessment and Plan: due to RAMIRO, CKD, and dialysis dependence Epogen with HD follow H/H Will continue to follow. Subjective Date/time seen: 10/01/22 11:00 Interval history: Follow-up for RAMIRO on CKD requiring renal replacement therapy/hemodialysis. Events noted during dialysis treatment yesterday -- rapid response due shivering in association with tachycardia and found to be in Afib with RVR; hypoglycemia noted as well; due to shivering, difficult to assess pulse oximetry but ABG demonstrated hypoxia; given demerol of shivering, D50 for hypoglycemia, and IV metoprolol for rate control; subsequently transferred to IMU; CT of chest done with results noted; steroids increased and given IV lasix as well; tolerating dry ultrafiltration this AM; respiratory status seems to have stabilized somewhat. Exam Narrative: General: WD/WN elderly male in NAD Heart: normal S1 and S2;
--- NOTE | 2022-10-01 11:00 | P.PNNP_ITS ---
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 * hold cytoxan due to leukopenia and thrombocytopenia, but continue steroids * follow trend of repeat labs and UOP (to assess for potential renal recovery) (2) Chronic kidney disease, stage IV (severe): Code(s): N18.4 - Chronic kidney disease, stage 4 (severe) Status: Chronic Assessment and Plan: * since 2019, creatinine has been running ~ 1.4 - 1.7mg/dl * however, in July 2021, it increased to 1.93mg/dl * then, in March 2022, it was 2.32mg/dl * on discharge in early May 2022, it was 3.3mg/dl * outpatient labs on 05/28/22, creatinine up to 4.4mg/dl * probably has some underlying chronic kidney disease due to HTN, vascular disease/CHF, and age * not clear when microscopic polyangiitis started ... (3) Acute hypoxemic respiratory failure: Code(s): J96.01 - Acute respiratory failure with hypoxia Status: Acute Assessment and Plan: * as noted on admission * still requiring supplemental oxygen * CXR and CT of chest results noted * attempting to push fluid removal with dialysis * DUF (dry ultrafiltration) today for further fluid removal * on antibiotics for possible pneumonia * Pulmonary recommendations noted (4) Leukopenia: Code(s): D72.819 - Decreased white blood cell count, unspecified Status: Acute Assessment and Plan: * likely secondary to cytoxan * hold this for now * follow WBC (5) Bacteremia: Code(s): R78.81 - Bacteremia Status: Acute Assessment and Plan: * noted but only 1 out of 2 sets -- likely contamination * follow repeat cultures * on antibiotics * no fever (6) Fall: Code(s): W19.XXXA - Unspecified fall, initial encounter Status: Acute Assessment and Plan: * possibly due to previous diarrhea * r/o infection given immunosuppression * PT/OT as tolerated (7) Hypertension: Code(s): I10 - Essential (primary) hypertension Status: Chronic Assessment and Plan: * reasonable control * follow trend of hemodynamics (8) Atrial fibrillation: Code(s): I48.91 - Unspecified atrial fibrillation Status: Acute Assessment and Plan: * rate control strategy * on metoprolol * on anticoagulation (9) Anemia: Code(s): D64.9 - Anemia, unspecified Status: Chronic Assessment and Plan: * due to RAMIRO, CKD, and dialysis dependence * Epogen with HD * follow H/H Will continue to follow. Subjective Date/time seen: 10/01/22 11:00 Interval history: Follow-up for RAMIRO on CKD requiring renal replacement therapy/hemodialysis. Events noted during dialysis treatment yesterday -- rapid response due shivering in association with tachycardia and found to be in Af
[2022-10-01 11:17] LABS: Glucose Point of Care 124 mg/dl (65-105)
--- NOTE | 2022-10-01 11:36 | PC.NURSE ---
Patient returned from dialysis. Reported removed 3L. No issues at this time.
--- NOTE | 2022-10-01 11:45 | PC.NURSE ---
Dr. Barrow notified me that he is not doing the bronchoscopy today. Orders for Renal diet and continue to hold eliquis.
--- NOTE | 2022-10-01 11:52 | PM.IMPN ---
Progress Note: A&P Assessment and Plan (1) Fall: Code(s): W19.XXXA - Unspecified fall, initial encounter Status: Acute Assessment and Plan: Status post fall and generalized weakness. Likely secondary to recent diarrhea and dehydration and also being on chemotherapy causing him to be immunosuppressed. His diarrhea has resolved now. PT OT consulted. patient does not want to go to rehab. Home health will be arranged (2) ESRD (end stage renal disease) on dialysis: Code(s): N18.6 - End stage renal disease; Z99.2 - Dependence on renal dialysis Status: Acute Assessment and Plan: Nephrology consulted. Patient receiving dialysis his dialysis catheter came out during dialysis. General surgery consulted and replaced dialysis catheter Resume dialysis per Nephrology (3) Leukopenia: Code(s): D72.819 - Decreased white blood cell count, unspecified Status: Acute Assessment and Plan: Likely secondary to chemo therapy. Monitor CBC. Blood culture is negative so far. Staphylococcus epidermidis in 1 aerobic bottle only, likely contaminant. MRSA screen is also negative. Antibiotic stoppedstrep thorat swab is negative. will get ct soft tissue neck to furthe revaluate (4) Hypertension: Code(s): I10 - Essential (primary) hypertension Status: Chronic Assessment and Plan: Resume home meds (5) Diarrhea: Qualifiers: Diarrhea type: unspecified type Qualified Code(s): R19.7 - Diarrhea, unspecified Code(s): R19.7 - Diarrhea, unspecified Status: Acute Assessment and Plan: Resolved Plan Biopsy-proven focal crescentic necrotizing pauci immune glomerulonephritis. P-ANCA positive on steroid and cyclophosphamide treated with pulse dose steroids and IV Cytoxan in May 2022. On Cytoxan and steroid currently Chronic anemia likely due to CKD. Epogen with hemodialysis Atrial fibrillation on anticoagulation with Eliquis rate control with metoprolol Congestive heart failure chronic diastolic Hypoxic respiratory failure needing oxygen supplementation on admission. Continue diuresis. Chest x-ray with diffuse lung disease consider pulmonary edema or less likely pneumonia History of GI bleed with gastric ulceration. On PPI Moderate aortic stenosis Hypertension DVT prophylaxis on Eliquis Code status full code Subjective Date/time seen: 10/01/22 11:52 Interval history: No new complaint Exam Narrative: General: male in NAD Skin bruises noted on his chest wall superficial Heart: normal S1 and S2; Irregular irregular rhythm no rub or gallop Lungs: Diminished breath sounds bilaterally. On nasal cannula oxygen Abdomen: soft, nontender, nondistended, positive bowel sounds Extremities: 1+ edema noted bilateral lower extremity Neurological: Alert and oriented x3 cranial nerves 2-12 generalized weakness noted Objective Data Vital Signs Vital Signs: Vital Signs - 24 hr 09/30/22 12:00 09/30/22 12:20 09/30/22 12:40 Temperature Pulse Rate 104 H 108 H 99 Respiratory Rate Blood Pressure 140/105 H 156/108 H 138/111 H Pulse Oximetry Oxygen Delivery Oxygen Flow Rate 09/30/22 13:35 09/30/22 14:01 09/30/22 14:06 Temperature Pulse Rate 120 H 122 H 100 Respiratory Rate Blood Pressure Pulse Oximetry Oxygen Delivery Oxygen Flow Rate 09/30/22 14:06 09/30/22 13:00 09/30/22 13:00 Temperature 98.4 F Pulse Rate 71 106 H Respiratory Rate 32 H Blood Pressure 115/92 H 140/108 H Pulse Oximetry 100 91 Oxygen Delivery High Flow Nasal Cannula Oxygen Flow Rate 10 09/30/22 13:13 09/30/22 13:22 09/30/22 16:01 Temperature 97.6 F Pulse Rate 160 H 170 H Respiratory Rate 26 H Blood Pressure 146/120 H 103/78 115/92 H Pulse Oximetry 95 Oxygen Delivery Oxygen Flow Rate 09/30/22 20:00 09/30/22 20:00 10/01/22 00:00 Temperature 97.4 F L 97.1 F L Puls
[2022-10-01] MEDS: FLUTICASONE PROPIONATE 0.05% NA SPR 16 GM BTL (*BKC) 1 SPRAY NASAL ×2 (12:03→20:27)
[2022-10-01] MEDS: FUROSEMIDE 40 MG TABLET PO (12:03)
[2022-10-01] MEDS: amLODIPine BESYLATE 5 MG TABLET PO (12:03)
[2022-10-01] MEDS: FAMOTIDINE 20 MG TABLET PO ×2 (12:03→20:30)
[2022-10-01] MEDS: METOPROLOL TARTRATE 50 MG TAB PO ×2 (12:03→20:28)
[2022-10-01] MEDS: PANTOPRAZOLE 40 MG TABLET PO (12:03)
[2022-10-01] MEDS: HYDROmorphone HCL INJ (*CRX) 1 MG/ML SYR 0.5 MG IV PUSH (12:04)
[2022-10-01] MEDS: BENZOCAINE/MENTHOL (*BKC) 18 EA LOZENGE 1 LOZENGE PO (16:09)
[2022-10-01 16:49] LABS: Glucose Point of Care 201 mg/dl (65-105)
[2022-10-01] MEDS: CEFEPIME 0.5 GM in SODIUM CHLORIDE 0.9% IV 50 ML 100 ML IVPB (17:09)
[2022-10-01 20:12] LABS: Glucose Point of Care 223 mg/dl (65-105)
[2022-10-02] VITALS (29 sets, daily range): BP systolic 82–152; BP diastolic 43–111; PULSE 60–111; RESP 16–22; TEMP 35.8–36.6; O2SAT 95–100
[2022-10-02 05:55] LABS: Estimated CRCL calculation 12 ml/min; Estimated Glomerular Filt Rate 8
[2022-10-02 06:01] LABS: Vancomycin Random 15.5 ug/mL (10-20)
[2022-10-02] MEDS: methylPREDNISolone SOD SUCC 40 MG VIAL IV PUSH (06:34)
[2022-10-02] MEDS: EPOETIN ALFA-EPBX 10,000 UNITS/ML VIAL 10000 UNITS IV PUSH (09:16)
[2022-10-02] MEDS: SODIUM CHLORIDE 0.9% IV 1,000 ML 999 ML IV CONT (09:17)
--- NOTE | 2022-10-02 09:22 | PCPTNOTE ---
Attempted reevaluation of patient after status change. Pt in dialysis 921. Will attempt reeval at later time.
--- NOTE | 2022-10-02 10:04 | PM.PNPUL ---
Progress Note: A&P Assessment and Plan (1) Microscopic polyangiitis: Code(s): M31.7 - Microscopic polyangiitis Status: Acute (2) Respiratory failure: Code(s): J96.90 - Respiratory failure, unspecified, unspecified whether with hypoxia or hypercapnia Status: Acute Assessment and Plan: Respiratory status essentially unchanged over the last 24 hours. As noted respiratory status improved following a daily hemodialysis with fluid removal. On physical exam he no longer has lower extremity edema. Chest exam showing rare crackles at the bases. Chest x-ray done early today was essentially unchanged. Worsening of lung congestion probably related to small lung volumes. Remains on same oxygen flow 3 liters/minute. He is still on IV Solu-Medrol high dose and also cyclophosphamide. The patient stated that since May he has been on oral steroids, prednisone 30-40 mg daily in addition to cyclophosphamide daily. Current clinical presentation and diagnostic studies do not suggest relapse of microscopic polyangiitis with respiratory involvement. Because of intense immunosuppression the patient is at high risk for infections. He remains hemodynamically stable and he does not look septic. Will continue to monitor respiratory status with daily chest x-rays, CRP, and probably repeat chest CT in early next week. If there is no evidence of infiltrate clearing will proceed with bronchoscopy with BAL. I would keep patient off anticoagulation. MRSA screening negative. Okay to DC vancomycin and continue with just cefepime for now. case was discussed with the hospitalist. (3) ESRD (end stage renal disease) on dialysis: Code(s): N18.6 - End stage renal disease; Z99.2 - Dependence on renal dialysis Status: Acute (4) Immunosuppression: Code(s): D84.9 - Immunodeficiency, unspecified Status: Acute (5) Leukopenia: Code(s): D72.819 - Decreased white blood cell count, unspecified Status: Acute (6) Atrial fibrillation and flutter: Code(s): I48.91 - Unspecified atrial fibrillation; I48.92 - Unspecified atrial flutter Status: Acute (7) Biventricular CHF (congestive heart failure): Code(s): I50.82 - Biventricular heart failure Status: Acute (8) Anemia: Code(s): D64.9 - Anemia, unspecified Status: Acute Subjective Date/time seen: 10/02/22 10:04 Interval history: Patient has no new respiratory symptoms. Currently undergoing hemodialysis. Remains on same oxygen flow 3 liters/minute. Significantly less lower extremity edema. Plan to remove another 4 L of fluid today. He has no fever chills hemoptysis or night sweats. Hemodynamically stable Review of Systems Review of Systems: All systems reviewed & are unremarkable except as noted in HPI and below (HPI and below) Exam Narrative: GENERAL APPEARANCE: Well developed, well nourished, alert and cooperative, and appears to be in no acute distress while on hemodialysis, breathing supplemental oxygen at 3 liters/minute SKIN: Inspection of the skin reveals neck petechiae. HEENT: Sclerae anicteric and conjunctivae pink and moist. Extraocular movements were intact and pupils were equal, round, and reactive to light. Dry oral mucosa NECK: Supple. There was no thyroid enlargement, and no tenderness, or masses were felt. CHEST: Normal AP diameter and normal contour without any kyphoscoliosis. LUNGS: Auscultation of the lungs rare crackles at bases posteriorly no wheezing CARDIAC: There was a irregular rate and rhythm without any murmurs. ABDOMEN: Soft and nontender with normal bowel sounds. There was no organomegaly. LYMPH NODES: No lymphadenopathy was appreciated in the neck. EXTREMITIES: No cyanosis, clubbing. 1+ pedal edema NEUROLOGIC: Alert and oriented x 3. Normal affect. Objective Data Vital Signs Vital Signs: Vital Signs - 24 hr 10/01/22 10:10 10/01/22 10:30 10/01/22 10:50 Temperature
--- NOTE | 2022-10-02 10:34 | PM.IMPN ---
Progress Note: A&P Assessment and Plan (1) Fall: Code(s): W19.XXXA - Unspecified fall, initial encounter Status: Acute Assessment and Plan: Status post fall and generalized weakness. Likely secondary to recent diarrhea and dehydration and also being on chemotherapy causing him to be immunosuppressed. His diarrhea has resolved now. PT OT consulted. patient does not want to go to rehab. Home health will be arranged (2) ESRD (end stage renal disease) on dialysis: Code(s): N18.6 - End stage renal disease; Z99.2 - Dependence on renal dialysis Status: Acute Assessment and Plan: Nephrology consulted. Patient receiving dialysis his dialysis catheter came out during dialysis. General surgery consulted and replaced dialysis catheter Resume dialysis per Nephrology (3) Leukopenia: Code(s): D72.819 - Decreased white blood cell count, unspecified Status: Acute Assessment and Plan: Likely secondary to chemo therapy. Monitor CBC. Blood culture is negative so far. Staphylococcus epidermidis in 1 aerobic bottle only, likely contaminant. MRSA screen is also negative. Antibiotic stoppedstrep thorat swab is negative. will get ct soft tissue neck to furthe revaluate (4) Hypertension: Code(s): I10 - Essential (primary) hypertension Status: Chronic Assessment and Plan: Resume home meds (5) Diarrhea: Qualifiers: Diarrhea type: unspecified type Qualified Code(s): R19.7 - Diarrhea, unspecified Code(s): R19.7 - Diarrhea, unspecified Status: Acute Assessment and Plan: Resolved Plan Biopsy-proven focal crescentic necrotizing pauci immune glomerulonephritis. P-ANCA positive on steroid and cyclophosphamide treated with pulse dose steroids and IV Cytoxan in May 2022. On Cytoxan and steroid currently Chronic anemia likely due to CKD. Epogen with hemodialysis Atrial fibrillation on anticoagulation with Eliquis rate control with metoprolol Congestive heart failure chronic diastolic Hypoxic respiratory failure needing oxygen supplementation on admission. Continue diuresis. Chest x-ray with diffuse lung disease consider pulmonary edema or less likely pneumonia History of GI bleed with gastric ulceration. On PPI Moderate aortic stenosis Hypertension DVT prophylaxis on Eliquis Code status full code Subjective Date/time seen: 10/02/22 10:34 Interval history: no complaints Exam Narrative: General: male in NAD Skin bruises noted on his chest wall superficial Heart: normal S1 and S2; Irregular irregular rhythm no rub or gallop Lungs: Diminished breath sounds bilaterally. On nasal cannula oxygen Abdomen: soft, nontender, nondistended, positive bowel sounds Extremities: 1+ edema noted bilateral lower extremity Neurological: Alert and oriented x3 cranial nerves 2-12 generalized weakness noted Objective Data Vital Signs Vital Signs: Vital Signs - 24 hr 10/01/22 10:50 10/01/22 11:13 10/01/22 11:24 Temperature 97.4 F L Pulse Rate 104 H 81 122 H Respiratory Rate 16 Blood Pressure 125/82 158/93 H 120/98 H Pulse Oximetry Oxygen Delivery Oxygen Flow Rate 10/01/22 12:03 10/01/22 12:00 10/01/22 12:00 Temperature Pulse Rate 103 H 100 Respiratory Rate Blood Pressure Pulse Oximetry 100 Oxygen Delivery High Flow Nasal Cannula Oxygen Flow Rate 3 10/01/22 12:00 10/01/22 14:00 10/01/22 16:00 Temperature 97.7 F Pulse Rate 105 H 106 H Respiratory Rate 20 Blood Pressure 116/87 Pulse Oximetry 97 95 Oxygen Delivery High Flow Nasal Cannula Oxygen Flow Rate 3 10/01/22 16:00 10/01/22 16:00 10/01/22 18:00 Temperature 97.8 F Pulse Rate 100 92 100 Respiratory Rate 18 Blood Pressure 117/85 Pulse Oximetry 100 Oxygen Delivery Oxygen Flow Rate 10/01/22 20:28 10/01/22 20:00 10/01/22 23:17 Temperature 97.9 F 97.8 F Pulse Rate 109 H
--- NOTE | 2022-10-02 10:45 | PM.PNNEP ---
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 hold cytoxan due to leukopenia and thrombocytopenia, but continue steroids follow trend of repeat labs and UOP (to assess for potential renal recovery) (2) Chronic kidney disease, stage IV (severe): Code(s): N18.4 - Chronic kidney disease, stage 4 (severe) Status: Chronic Assessment and Plan: since 2019, creatinine has been running ~ 1.4 - 1.7mg/dl however, in July 2021, it increased to 1.93mg/dl then, in March 2022, it was 2.32mg/dl on discharge in early May 2022, it was 3.3mg/dl outpatient labs on 05/28/22, creatinine up to 4.4mg/dl probably has some underlying chronic kidney disease due to HTN, vascular disease/CHF, and age not clear when microscopic polyangiitis started ... (3) Acute hypoxemic respiratory failure: Code(s): J96.01 - Acute respiratory failure with hypoxia Status: Acute Assessment and Plan: as noted on admission still requiring supplemental oxygen CXR and CT of chest results noted attempting to push fluid removal with dialysis DUF (dry ultrafiltration) yesterday for further fluid removal on antibiotics for possible pneumonia Pulmonary recommendations noted (4) Leukopenia: Code(s): D72.819 - Decreased white blood cell count, unspecified Status: Acute Assessment and Plan: likely secondary to cytoxan hold this for now follow WBC (5) Bacteremia: Code(s): R78.81 - Bacteremia Status: Acute Assessment and Plan: noted but only 1 out of 2 sets -- likely contamination follow repeat cultures on antibiotics no fever (6) Fall: Code(s): W19.XXXA - Unspecified fall, initial encounter Status: Acute Assessment and Plan: possibly due to previous diarrhea r/o infection given immunosuppression PT/OT as tolerated (7) Hypertension: Code(s): I10 - Essential (primary) hypertension Status: Chronic Assessment and Plan: reasonable control follow trend of hemodynamics (8) Atrial fibrillation: Code(s): I48.91 - Unspecified atrial fibrillation Status: Acute Assessment and Plan: rate control strategy on metoprolol on anticoagulation (9) Anemia: Code(s): D64.9 - Anemia, unspecified Status: Chronic Assessment and Plan: due to RAMIRO, CKD, and dialysis dependence Epogen with HD follow H/H Will continue to follow. Subjective Date/time seen: 10/02/22 10:45 Interval history: Follow-up for RAMIRO on CKD requiring renal replacement therapy/hemodialysis. Tolerated dry ultrafiltration session yesterday with 4L fluid removal; tolerating hemodialysis treatment at the time of my visit (seen on HD at 10:35AM) with the tentative plan for another 4L fluid removal; respiratory status remains relatively stable; still of supplemental oxygen as well; no apparent distress noted. Exam Narrative: General: WD/WN elderly male in NAD Heart: normal S1 and S2; irregular irregular; no rub Lungs: coarse breath sounds Abdomen: soft, nontender, nondistended, positive bowel sounds Extremities: no cyanosis or clubbing; no edema Skin: no rash Objective Data Vital Signs Vital Signs: Vi
--- NOTE | 2022-10-02 10:45 | P.PNNP_ITS ---
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 * hold cytoxan due to leukopenia and thrombocytopenia, but continue steroids * follow trend of repeat labs and UOP (to assess for potential renal recovery) (2) Chronic kidney disease, stage IV (severe): Code(s): N18.4 - Chronic kidney disease, stage 4 (severe) Status: Chronic Assessment and Plan: * since 2019, creatinine has been running ~ 1.4 - 1.7mg/dl * however, in July 2021, it increased to 1.93mg/dl * then, in March 2022, it was 2.32mg/dl * on discharge in early May 2022, it was 3.3mg/dl * outpatient labs on 05/28/22, creatinine up to 4.4mg/dl * probably has some underlying chronic kidney disease due to HTN, vascular disease/CHF, and age * not clear when microscopic polyangiitis started ... (3) Acute hypoxemic respiratory failure: Code(s): J96.01 - Acute respiratory failure with hypoxia Status: Acute Assessment and Plan: * as noted on admission * still requiring supplemental oxygen * CXR and CT of chest results noted * attempting to push fluid removal with dialysis * DUF (dry ultrafiltration) yesterday for further fluid removal * on antibiotics for possible pneumonia * Pulmonary recommendations noted (4) Leukopenia: Code(s): D72.819 - Decreased white blood cell count, unspecified Status: Acute Assessment and Plan: * likely secondary to cytoxan * hold this for now * follow WBC (5) Bacteremia: Code(s): R78.81 - Bacteremia Status: Acute Assessment and Plan: * noted but only 1 out of 2 sets -- likely contamination * follow repeat cultures * on antibiotics * no fever (6) Fall: Code(s): W19.XXXA - Unspecified fall, initial encounter Status: Acute Assessment and Plan: * possibly due to previous diarrhea * r/o infection given immunosuppression * PT/OT as tolerated (7) Hypertension: Code(s): I10 - Essential (primary) hypertension Status: Chronic Assessment and Plan: * reasonable control * follow trend of hemodynamics (8) Atrial fibrillation: Code(s): I48.91 - Unspecified atrial fibrillation Status: Acute Assessment and Plan: * rate control strategy * on metoprolol * on anticoagulation (9) Anemia: Code(s): D64.9 - Anemia, unspecified Status: Chronic Assessment and Plan: * due to RAMIRO, CKD, and dialysis dependence * Epogen with HD * follow H/H Will continue to follow. Subjective Date/time seen: 10/02/22 10:45 Interval history: Follow-up for RAMIRO on CKD requiring renal replacement therapy/hemodialysis. Tolerated dry ultrafiltration session yesterday with 4L fluid removal; tolerating hemodialysis treatment at the time of my visit (see
--- NOTE | 2022-10-02 10:53 | PCOTNOTE ---
Attempted to see for OT re-assessment at 0922 and patient is in dialysis. Will continue to attempt.
[2022-10-02 11:40] LABS: CRP 12.8 mg/dL (<1.0)
[2022-10-02] MEDS: HYDROcodone/acetaminophen (*CRX) 5-325 MG TABLET 1 TAB PO ×3 (11:54→22:54)
[2022-10-02] MEDS: VANCOMYCIN 1,000 MG/NS 250 ML BAG 250 MG IVPB (11:54)
[2022-10-02] MEDS: FLUTICASONE PROPIONATE 0.05% NA SPR 16 GM BTL (*BKC) 1 SPRAY NASAL ×2 (12:00→20:21)
[2022-10-02] MEDS: METOPROLOL TARTRATE 50 MG TAB PO ×2 (12:00→20:20)
[2022-10-02] MEDS: FAMOTIDINE 20 MG TABLET PO ×2 (12:01→20:20)
[2022-10-02] MEDS: amLODIPine BESYLATE 5 MG TABLET PO (12:01)
[2022-10-02] MEDS: FUROSEMIDE 40 MG TABLET PO (12:01)
[2022-10-02] MEDS: PANTOPRAZOLE 40 MG TABLET PO (12:02)
[2022-10-02] MEDS: HEPARIN SODIUM 1,000 UNITS/ML VIAL 5000 UNITS (12:10)
[2022-10-02] MEDS: BENZOCAINE/MENTHOL (*BKC) 18 EA LOZENGE 1 LOZENGE PO (16:12)
[2022-10-02] MEDS: CEFEPIME 0.5 GM in SODIUM CHLORIDE 0.9% IV 50 ML 100 ML IVPB (18:09)
[2022-10-02] MEDS: predniSONE 10 MG TABLET PO (18:09)
[2022-10-03] VITALS (20 sets, daily range): BP systolic 97–130; BP diastolic 70–91; PULSE 86–106; RESP 20–22; TEMP 36.1–36.6; O2SAT 93–100
[2022-10-03 03:42] LABS: Estimated CRCL calculation 14 ml/min; Estimated Glomerular Filt Rate 10
[2022-10-03] MEDS: predniSONE 10 MG TABLET PO ×2 (10:49→18:52)
[2022-10-03] MEDS: amLODIPine BESYLATE 5 MG TABLET PO (10:49)
[2022-10-03] MEDS: METOPROLOL TARTRATE 50 MG TAB PO ×2 (10:50→21:03)
[2022-10-03] MEDS: PANTOPRAZOLE 40 MG TABLET PO (10:50)
[2022-10-03] MEDS: FLUTICASONE PROPIONATE 0.05% NA SPR 16 GM BTL (*BKC) 1 SPRAY NASAL ×2 (10:50→21:04)
[2022-10-03] MEDS: FUROSEMIDE 40 MG TABLET PO (10:50)
[2022-10-03] MEDS: FAMOTIDINE 20 MG TABLET PO ×2 (10:50→21:03)
--- NOTE | 2022-10-03 11:28 | PM.IMPN ---
Progress Note: A&P Assessment and Plan (1) Fall: Code(s): W19.XXXA - Unspecified fall, initial encounter Status: Acute Assessment and Plan: Status post fall and generalized weakness. Likely secondary to recent diarrhea and dehydration and also being on chemotherapy causing him to be immunosuppressed. His diarrhea has resolved now. PT OT consulted. patient does not want to go to rehab. Home health will be arranged (2) ESRD (end stage renal disease) on dialysis: Code(s): N18.6 - End stage renal disease; Z99.2 - Dependence on renal dialysis Status: Acute Assessment and Plan: Nephrology consulted. Patient receiving dialysis his dialysis catheter came out during dialysis. General surgery consulted and replaced dialysis catheter Resume dialysis per Nephrology (3) Leukopenia: Code(s): D72.819 - Decreased white blood cell count, unspecified Status: Acute Assessment and Plan: Likely secondary to chemo therapy. Monitor CBC. Blood culture is negative so far. Staphylococcus epidermidis in 1 aerobic bottle only, likely contaminant. MRSA screen is also negative. Antibiotic stoppedstrep thorat swab is negative. will get ct soft tissue neck to furthe revaluate (4) Hypertension: Code(s): I10 - Essential (primary) hypertension Status: Chronic Assessment and Plan: Resume home meds (5) Diarrhea: Qualifiers: Diarrhea type: unspecified type Qualified Code(s): R19.7 - Diarrhea, unspecified Code(s): R19.7 - Diarrhea, unspecified Status: Acute Assessment and Plan: Resolved Plan Biopsy-proven focal crescentic necrotizing pauci immune glomerulonephritis. P-ANCA positive on steroid and cyclophosphamide treated with pulse dose steroids and IV Cytoxan in May 2022. On Cytoxan and steroid currently Chronic anemia likely due to CKD. Epogen with hemodialysis Atrial fibrillation on anticoagulation with Eliquis rate control with metoprolol Congestive heart failure chronic diastolic Hypoxic respiratory failure needing oxygen supplementation on admission. Continue diuresis. Chest x-ray with diffuse lung disease consider pulmonary edema or less likely pneumonia History of GI bleed with gastric ulceration. On PPI Moderate aortic stenosis Hypertension DVT prophylaxis on Eliquis Code status full code Subjective Date/time seen: 10/03/22 11:28 Interval history: Feeling somewhat better. Respiratory status is improved. Exam Narrative: General: male in NAD Skin bruises noted on his chest wall superficial Heart: normal S1 and S2; Irregular irregular rhythm no rub or gallop Lungs: Diminished breath sounds bilaterally. On nasal cannula oxygen Abdomen: soft, nontender, nondistended, positive bowel sounds Extremities: 1+ edema noted bilateral lower extremity Neurological: Alert and oriented x3 cranial nerves 2-12 generalized weakness noted Objective Data Vital Signs Vital Signs: Vital Signs - 24 hr 10/02/22 11:37 10/02/22 12:00 10/02/22 12:00 Temperature 97.4 F L 97.9 F Pulse Rate 109 H 88 108 H Respiratory Rate 16 16 Blood Pressure 103/81 82/43 L Pulse Oximetry 98 Oxygen Delivery Oxygen Flow Rate 10/02/22 14:52 10/02/22 12:00 10/02/22 14:00 Temperature Pulse Rate 109 H 92 Respiratory Rate Blood Pressure Pulse Oximetry Oxygen Delivery Nasal Cannula Oxygen Flow Rate 4 10/02/22 12:00 10/02/22 16:00 10/02/22 16:00 Temperature 97.7 F Pulse Rate 102 H Respiratory Rate 20 Blood Pressure 152/99 H Pulse Oximetry 95 100 99 Oxygen Delivery High Flow Nasal Cannula Nasal Cannula Oxygen Flow Rate 4 4 10/02/22 16:00 10/02/22 18:00 10/02/22 20:20 Temperature Pulse Rate 93 90 101 H Respiratory Rate Blood Pressure Pulse Oximetry Oxygen Delivery Oxygen Flow Rate 10/02/22 20:00 10/02/22 20:00 10/02/22 20:00 Temperature 9
--- NOTE | 2022-10-03 11:46 | PM.PNNEP ---
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 hold cytoxan due to leukopenia and thrombocytopenia, but continue steroids follow trend of repeat labs and UOP (to assess for potential renal recovery) (2) Chronic kidney disease, stage IV (severe): Code(s): N18.4 - Chronic kidney disease, stage 4 (severe) Status: Chronic Assessment and Plan: since 2019, creatinine has been running ~ 1.4 - 1.7mg/dl however, in July 2021, it increased to 1.93mg/dl then, in March 2022, it was 2.32mg/dl on discharge in early May 2022, it was 3.3mg/dl outpatient labs on 05/28/22, creatinine up to 4.4mg/dl probably has some underlying chronic kidney disease due to HTN, vascular disease/CHF, and age not clear when microscopic polyangiitis started ... (3) Acute hypoxemic respiratory failure: Code(s): J96.01 - Acute respiratory failure with hypoxia Status: Acute Assessment and Plan: as noted on admission still requiring supplemental oxygen CXR and CT of chest results noted attempting to push fluid removal with dialysis DUF (dry ultrafiltration) intermittently for further fluid removal possible DUF treatment tomorrow on antibiotics for possible pneumonia Pulmonary recommendations noted (4) Leukopenia: Code(s): D72.819 - Decreased white blood cell count, unspecified Status: Acute Assessment and Plan: likely secondary to cytoxan hold this for now follow WBC (5) Bacteremia: Code(s): R78.81 - Bacteremia Status: Acute Assessment and Plan: noted but only 1 out of 2 sets -- likely contamination follow repeat cultures on antibiotics no fever (6) Fall: Code(s): W19.XXXA - Unspecified fall, initial encounter Status: Acute Assessment and Plan: possibly due to previous diarrhea r/o infection given immunosuppression PT/OT as tolerated (7) Hypertension: Code(s): I10 - Essential (primary) hypertension Status: Chronic Assessment and Plan: reasonable control follow trend of hemodynamics (8) Atrial fibrillation: Code(s): I48.91 - Unspecified atrial fibrillation Status: Acute Assessment and Plan: rate control strategy on metoprolol on anticoagulation (9) Anemia: Code(s): D64.9 - Anemia, unspecified Status: Chronic Assessment and Plan: due to RAMIRO, CKD, and dialysis dependence Epogen with HD follow H/H Will continue to follow. Subjective Date/time seen: 10/03/22 11:46 Interval history: Follow-up for RAMIRO on CKD requiring renal replacement therapy/hemodialysis. Tolerated hemodialysis treatment yesterday with another 4L fluid removal; respiratory status remains stable at the time of my visit -- remains on supplemental oxygen and in no distress; no other acute issues/events overnight or earlier this morning; peripheral swelling/edema has improved if not resolved. Exam Narrative: General: WD/WN elderly male in NAD Heart: normal S1 and S2; irregular irregular; no rub Lungs: coarse breath sounds Abdomen: soft, nontender, nondistended, positive bowel sounds Extremities: no cyanosis or clubbing; no edema Skin: no nodules Objective D
--- NOTE | 2022-10-03 11:46 | P.PNNP_ITS ---
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 * hold cytoxan due to leukopenia and thrombocytopenia, but continue steroids * follow trend of repeat labs and UOP (to assess for potential renal recovery) (2) Chronic kidney disease, stage IV (severe): Code(s): N18.4 - Chronic kidney disease, stage 4 (severe) Status: Chronic Assessment and Plan: * since 2019, creatinine has been running ~ 1.4 - 1.7mg/dl * however, in July 2021, it increased to 1.93mg/dl * then, in March 2022, it was 2.32mg/dl * on discharge in early May 2022, it was 3.3mg/dl * outpatient labs on 05/28/22, creatinine up to 4.4mg/dl * probably has some underlying chronic kidney disease due to HTN, vascular disease/CHF, and age * not clear when microscopic polyangiitis started ... (3) Acute hypoxemic respiratory failure: Code(s): J96.01 - Acute respiratory failure with hypoxia Status: Acute Assessment and Plan: * as noted on admission * still requiring supplemental oxygen * CXR and CT of chest results noted * attempting to push fluid removal with dialysis * DUF (dry ultrafiltration) intermittently for further fluid removal * possible DUF treatment tomorrow * on antibiotics for possible pneumonia * Pulmonary recommendations noted (4) Leukopenia: Code(s): D72.819 - Decreased white blood cell count, unspecified Status: Acute Assessment and Plan: * likely secondary to cytoxan * hold this for now * follow WBC (5) Bacteremia: Code(s): R78.81 - Bacteremia Status: Acute Assessment and Plan: * noted but only 1 out of 2 sets -- likely contamination * follow repeat cultures * on antibiotics * no fever (6) Fall: Code(s): W19.XXXA - Unspecified fall, initial encounter Status: Acute Assessment and Plan: * possibly due to previous diarrhea * r/o infection given immunosuppression * PT/OT as tolerated (7) Hypertension: Code(s): I10 - Essential (primary) hypertension Status: Chronic Assessment and Plan: * reasonable control * follow trend of hemodynamics (8) Atrial fibrillation: Code(s): I48.91 - Unspecified atrial fibrillation Status: Acute Assessment and Plan: * rate control strategy * on metoprolol * on anticoagulation (9) Anemia: Code(s): D64.9 - Anemia, unspecified Status: Chronic Assessment and Plan: * due to RAMIRO, CKD, and dialysis dependence * Epogen with HD * follow H/H Will continue to follow. Subjective Date/time seen: 10/03/22 11:46 Interval history: Follow-up for RAMIRO on CKD requiring renal replacement therapy/hemodialysis. Tolerated hemodialysis treatment yesterday with another 4L fluid removal; respira
--- NOTE | 2022-10-03 12:06 | PM.PNPUL ---
Progress Note: A&P Assessment and Plan (1) Microscopic polyangiitis: Code(s): M31.7 - Microscopic polyangiitis Status: Acute (2) Respiratory failure: Code(s): J96.90 - Respiratory failure, unspecified, unspecified whether with hypoxia or hypercapnia Status: Acute Assessment and Plan: Respiratory status essentially unchanged over the last 24 hours. Respiratory status improved following daily hemodialysis with fluid removal. No hemodialysis planned for today. On physical exam he no longer has lower extremity edema. Chest exam showing rare crackles at the bases as before. Chest x-ray done early today showed some clearing of infiltrates especially on the right. Unclear whether there are new infiltrates on left or the findings on chest x-ray could be related to lower lung volume on left. Remains on same oxygen flow 3 liters/minute for the last 48 hours. Patient was switched to low-dose oral prednisone. CRP mildly elevated. MRSA screening negative. He is off Eliquis. He is still on cefepime. Plan: In view of a possible aspiration when drinking liquids will proceed with modified video swallow study. Okay to restart Eliquis. Repeat chest x-ray in a.m. Incentive spirometry (3) ESRD (end stage renal disease) on dialysis: Code(s): N18.6 - End stage renal disease; Z99.2 - Dependence on renal dialysis Status: Acute (4) Immunosuppression: Code(s): D84.9 - Immunodeficiency, unspecified Status: Acute (5) Leukopenia: Code(s): D72.819 - Decreased white blood cell count, unspecified Status: Acute (6) Atrial fibrillation and flutter: Code(s): I48.91 - Unspecified atrial fibrillation; I48.92 - Unspecified atrial flutter Status: Acute (7) Biventricular CHF (congestive heart failure): Code(s): I50.82 - Biventricular heart failure Status: Acute (8) Anemia: Code(s): D64.9 - Anemia, unspecified Status: Acute Subjective Date/time seen: 10/03/22 12:07 Interval history: Patient has no new respiratory symptoms. Remaining on supplemental oxygen, low-flow nasal cannula. Upon questioning he admitted having some coughing when drinking liquids fast. No fever. Review of Systems Review of Systems: All systems reviewed & are unremarkable except as noted in HPI and below (HPI and below) Exam Narrative: GENERAL APPEARANCE: Well developed, well nourished, alert and cooperative, and appears to be in no acute distress while breathing supplemental oxygen at 3 liters/minute SKIN: Inspection of the skin reveals neck petechiae. HEENT: Sclerae anicteric and conjunctivae pink and moist. Extraocular movements were intact and pupils were equal, round, and reactive to light. Dry oral mucosa NECK: Supple. There was no thyroid enlargement, and no tenderness, or masses were felt. CHEST: Normal AP diameter and normal contour without any kyphoscoliosis. LUNGS: Auscultation of the lungs rare crackles at bases posteriorly no wheezing CARDIAC: There was a irregular rate and rhythm without any murmurs. ABDOMEN: Soft and nontender with normal bowel sounds. There was no organomegaly. LYMPH NODES: No lymphadenopathy was appreciated in the neck. EXTREMITIES: No cyanosis, clubbing. No pedal edema NEUROLOGIC: Alert and oriented x 3. Normal affect. Objective Data Vital Signs Vital Signs: Vital Signs - 24 hr 10/02/22 14:52 10/02/22 14:00 10/02/22 16:00 Temperature 36.5 C Pulse Rate 92 102 H Respiratory Rate 20 Blood Pressure 152/99 H Pulse Oximetry 100 Oxygen Delivery Nasal Cannula Oxygen Flow Rate 4 10/02/22 16:00 10/02/22 16:00 10/02/22 18:00 Temperature Pulse Rate 93 90 Respiratory Rate Blood Pressure Pulse Oximetry 99 Oxygen Delivery Nasal Cannula Oxygen Flow Rate 4 10/02/22 20:20 10/02/22 20:00 10/02/22 20:00 Temperature 36.1 C L Pulse Rate 101 H 100 102 H Respiratory Rate 22 H Blood Pressure 1
--- NOTE | 2022-10-03 15:21 | PCOTNOTE ---
Attempted to see patient for OT treatment and he refused any/all activity despite education on the benefits of therapy. He reports he will try tomorrow .
[2022-10-03 16:19] LABS: Glucose Point of Care 165 mg/dl (65-105)
[2022-10-03] MEDS: CEFEPIME 0.5 GM in SODIUM CHLORIDE 0.9% IV 50 ML 100 ML IVPB (18:52)
[2022-10-03] MEDS: APIXABAN 2.5 MG TABLET PO (21:03)
[2022-10-04] VITALS (31 sets, daily range): BP systolic 91–159; BP diastolic 65–97; PULSE 49–102; RESP 14–20; TEMP 36–36.6; O2SAT 94–100
[2022-10-04 05:07] LABS: Basophils Percent Auto 0.4 % (0.2-1.2); Hematocrit 28.3 % (42.0-52.0); Hemoglobin 9.2 g/dL (14.0-18.0); Immature Granulocyte Absolute 0.24 K/mm3 (0.00-0.031); Immature Granulocyte Percent A 4.7 % (0-0.5); Lymphocytes Percent Auto 3.9 % (18.3-44.2); Mean Corpuscular HGB Conc 32.5 g/dl (32-36); Mean Corpuscular Hemoglobin 33.7 pg (26-34); Mean Corpuscular Volume 103.7 fl (80-100); Mean Platelet Volume 10.9 fl (7.4-10.4); Monocytes Absolute Auto 0.5 K/mm3 (0.1-0.6); Monocytes Percent Auto 9.3 % (2.6-8.5); Neutrophils Absolute Auto 4.2 K/mm3 (1.3-6.7); Neutrophils Percent Auto 81.7 % (45.5-73.1); Nucleated Red Blood Cells Absolute Auto 0.2 K/mm3 (0.0-0.012); Nucleated Red Blood Cells Perc 2.9 % (0.0-0.2); Platelet Count Result 171 k/mm3 (150-375); Red Blood Count 2.73 M/mm3 (4.6-6.20); Red Cell Distribution Width 15.9 % (11.5-14.5); White Blood Count 5.2 K/mm3 (4.5-10.0)
[2022-10-04 05:37] LABS: Albumin Level 3.1 g/dL (3.5-5.1); Anion Gap 9 mmol/L (8-16); Blood Urea Nitrogen 92 mg/dL (9-20); Calcium 7.7 mg/dL (8.4-10.2); Carbon Dioxide 26 mmol/L (22-30); Chloride 99 mmol/L (98-107); Estimated CRCL calculation 11 ml/min; Estimated Glomerular Filt Rate 8; Glucose 150 mg/dL (65-110); Phosphorus 8.5 mg/dL (2.5-4.5); Potassium 5.3 mmol/L (3.4-5.0); Sodium 134 mmol/L (137-145)
--- NOTE | 2022-10-04 08:45 | PM.PNPUL ---
Progress Note: A&P Assessment and Plan (1) Microscopic polyangiitis: Code(s): M31.7 - Microscopic polyangiitis Status: Acute (2) Respiratory failure: Code(s): J96.90 - Respiratory failure, unspecified, unspecified whether with hypoxia or hypercapnia Status: Acute Assessment and Plan: Respiratory status essentially unchanged over the last 24 hours. Respiratory status improved following daily hemodialysis with fluid removal. New hemodialysis planned for today. On physical exam he no longer has lower extremity edema. Chest exam showing rare crackles at the bases as before. Chest x-ray done today showed some clearing of infiltrates especially on the right. Patient was switched to oral prednisone. CRP mildly elevated. Back on Eliquis. WBC within normal range. Patient has known left ventricular diastolic dysfunction with biatrial enlargement and evidence of elevated pulmonary artery systolic pressure on last echocardiogram done approximately 4 months ago. Pulmonary hypertension likely related to left ventricular diastolic dysfunction, which is the most common cause of pulmonary hypertension in this age group. Possible underlying sleep disorder breathing needs to be excluded. Plan: In view of a possible aspiration when drinking liquids will proceed with modified video swallow study. Okay to DC cefepime. Continue with incentive spirometry, out of bed to chair. The patient has chronically elevated left hemidiaphragm which could be to diaphragm paralysis. Will schedule for sniff fluoroscopy prior to DC home. He will probably require supplemental oxygen at home. Of note he was discharged on home oxygen 3 months ago but used it for only a short period of time. Sleep disordered breathing is a possibility and needs to be evaluated on an outpatient basis. He has no hypercapnic respiratory failure that would suggest obesity hypoventilation. (3) ESRD (end stage renal disease) on dialysis: Code(s): N18.6 - End stage renal disease; Z99.2 - Dependence on renal dialysis Status: Acute (4) Immunosuppression: Code(s): D84.9 - Immunodeficiency, unspecified Status: Acute (5) Leukopenia: Code(s): D72.819 - Decreased white blood cell count, unspecified Status: Acute (6) Atrial fibrillation and flutter: Code(s): I48.91 - Unspecified atrial fibrillation; I48.92 - Unspecified atrial flutter Status: Acute (7) Biventricular CHF (congestive heart failure): Code(s): I50.82 - Biventricular heart failure Status: Acute (8) Anemia: Code(s): D64.9 - Anemia, unspecified Status: Acute Subjective Date/time seen: 10/04/22 08:45 Interval history: Patient has no new respiratory symptoms. Did not use BiPAP support last night. Remaining on low-flow oxygen via nasal cannula. Hemodialysis later on today Review of Systems Review of Systems: All systems reviewed & are unremarkable except as noted in HPI and below (HPI and below) Exam Narrative: GENERAL APPEARANCE: Well developed, well nourished, alert and cooperative, and appears to be in no acute distress while breathing supplemental oxygen at 2 liters/minute SKIN: Inspection of the skin reveals neck petechiae. HEENT: Sclerae anicteric and conjunctivae pink and moist. Extraocular movements were intact and pupils were equal, round, and reactive to light. Dry oral mucosa NECK: Supple. There was no thyroid enlargement, and no tenderness, or masses were felt. CHEST: Normal AP diameter and normal contour without any kyphoscoliosis. LUNGS: Auscultation of the lungs rare crackles at bases posteriorly no wheezing CARDIAC: There was a irregular rate and rhythm without any murmurs. ABDOMEN: Soft and nontender with normal bowel sounds. There was no organomegaly. LYMPH NODES: No lymphadenopathy was appreciated in the neck. EXTREMITIES: No cyanosis, clubbing. No pedal edema NEUROLOGIC: Alert and oriented x 3. Nor
--- NOTE | 2022-10-04 09:38 | P.PNNP_ITS ---
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 * hold cytoxan due to leukopenia and thrombocytopenia, but continue steroids * follow trend of repeat labs and UOP (to assess for potential renal recovery) (2) Chronic kidney disease, stage IV (severe): Code(s): N18.4 - Chronic kidney disease, stage 4 (severe) Status: Chronic Assessment and Plan: * since 2019, creatinine has been running ~ 1.4 - 1.7mg/dl * however, in July 2021, it increased to 1.93mg/dl * then, in March 2022, it was 2.32mg/dl * on discharge in early May 2022, it was 3.3mg/dl * outpatient labs on 05/28/22, creatinine up to 4.4mg/dl * probably has some underlying chronic kidney disease due to HTN, vascular disease/CHF, and age * not clear when microscopic polyangiitis started ... (3) Acute hypoxemic respiratory failure: Code(s): J96.01 - Acute respiratory failure with hypoxia Status: Acute Assessment and Plan: * as noted on admission * still requiring supplemental oxygen * CXR and CT of chest results noted * attempting to push fluid removal with dialysis * DUF (dry ultrafiltration) intermittently for further fluid removal -- DUF today * on antibiotics for possible pneumonia * Pulmonary recommendations noted (4) Leukopenia: Code(s): D72.819 - Decreased white blood cell count, unspecified Status: Acute Assessment and Plan: * improving * likely secondary to cytoxan * hold this for now * follow WBC (5) Fall: Code(s): W19.XXXA - Unspecified fall, initial encounter Status: Acute Assessment and Plan: * possibly due to previous diarrhea (which has resolved) * r/o infection given immunosuppression -- culture negative to date * PT/OT as tolerated (6) Hypertension: Code(s): I10 - Essential (primary) hypertension Status: Chronic Assessment and Plan: * reasonable control * follow trend of hemodynamics (7) Atrial fibrillation: Code(s): I48.91 - Unspecified atrial fibrillation Status: Acute Assessment and Plan: * rate control strategy * on metoprolol * on anticoagulation (8) Anemia: Code(s): D64.9 - Anemia, unspecified Status: Chronic Assessment and Plan: * due to RAMIRO, CKD, and dialysis dependence * Epogen with HD * follow H/H Will continue to follow. Subjective Date/time seen: 10/04/22 09:38 Interval history: Follow-up for RAMIRO on CKD requiring renal replacement therapy/hemodialysis. Tolerating dry ultrafiltration treatment at the time of my visit (seen on DUF at 9:30AM); respiratory status seems relatively stable with ongoing use of supplemental oxygen; continuing to push fluid removal with hemodialysis alternating with dry ultrafiltration as tolerated by hemodynamics;
--- NOTE | 2022-10-04 09:38 | PM.PNNEP ---
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 hold cytoxan due to leukopenia and thrombocytopenia, but continue steroids follow trend of repeat labs and UOP (to assess for potential renal recovery) (2) Chronic kidney disease, stage IV (severe): Code(s): N18.4 - Chronic kidney disease, stage 4 (severe) Status: Chronic Assessment and Plan: since 2019, creatinine has been running ~ 1.4 - 1.7mg/dl however, in July 2021, it increased to 1.93mg/dl then, in March 2022, it was 2.32mg/dl on discharge in early May 2022, it was 3.3mg/dl outpatient labs on 05/28/22, creatinine up to 4.4mg/dl probably has some underlying chronic kidney disease due to HTN, vascular disease/CHF, and age not clear when microscopic polyangiitis started ... (3) Acute hypoxemic respiratory failure: Code(s): J96.01 - Acute respiratory failure with hypoxia Status: Acute Assessment and Plan: as noted on admission still requiring supplemental oxygen CXR and CT of chest results noted attempting to push fluid removal with dialysis DUF (dry ultrafiltration) intermittently for further fluid removal -- DUF today on antibiotics for possible pneumonia Pulmonary recommendations noted (4) Leukopenia: Code(s): D72.819 - Decreased white blood cell count, unspecified Status: Acute Assessment and Plan: improving likely secondary to cytoxan hold this for now follow WBC (5) Fall: Code(s): W19.XXXA - Unspecified fall, initial encounter Status: Acute Assessment and Plan: possibly due to previous diarrhea (which has resolved) r/o infection given immunosuppression -- culture negative to date PT/OT as tolerated (6) Hypertension: Code(s): I10 - Essential (primary) hypertension Status: Chronic Assessment and Plan: reasonable control follow trend of hemodynamics (7) Atrial fibrillation: Code(s): I48.91 - Unspecified atrial fibrillation Status: Acute Assessment and Plan: rate control strategy on metoprolol on anticoagulation (8) Anemia: Code(s): D64.9 - Anemia, unspecified Status: Chronic Assessment and Plan: due to RAMIRO, CKD, and dialysis dependence Epogen with HD follow H/H Will continue to follow. Subjective Date/time seen: 10/04/22 09:38 Interval history: Follow-up for RAMIRO on CKD requiring renal replacement therapy/hemodialysis. Tolerating dry ultrafiltration treatment at the time of my visit (seen on DUF at 9:30AM); respiratory status seems relatively stable with ongoing use of supplemental oxygen; continuing to push fluid removal with hemodialysis alternating with dry ultrafiltration as tolerated by hemodynamics; no other acute issues/events overnight or earlier this morning. Exam Narrative: General: WD/WN elderly male in NAD Heart: normal S1 and S2; irregular irregular; no rub Lungs: coarse breath sounds Abdomen: soft, nontender, nondistended, positive bowel sounds Extremities: no cyanosis or clubbing; no edema Skin: warm and dry Objective Data Vital Signs Vital Signs: Vital Signs Temp Pulse Resp BP Pulse Ox O2 Del Method O2 Flow Rate 10/04/22 09:20 91
--- NOTE | 2022-10-04 09:51 | PCPTNOTE ---
The patient treatment was not able to be completed at this time due to patient out of room for dialysis. Will plan to continue treatment per plan of care.
--- NOTE | 2022-10-04 11:04 | PM.IMPN ---
Progress Note: A&P Assessment and Plan (1) Fall: Code(s): W19.XXXA - Unspecified fall, initial encounter Status: Acute Assessment and Plan: Status post fall and generalized weakness. Likely secondary to recent diarrhea and dehydration and also being on chemotherapy causing him to be immunosuppressed. His diarrhea has resolved now. PT OT consulted. patient does not want to go to rehab. Home health will be arranged (2) ESRD (end stage renal disease) on dialysis: Code(s): N18.6 - End stage renal disease; Z99.2 - Dependence on renal dialysis Status: Acute Assessment and Plan: Nephrology consulted. Patient receiving dialysis his dialysis catheter came out during dialysis. General surgery consulted and replaced dialysis catheter Resume dialysis per Nephrology (3) Leukopenia: Code(s): D72.819 - Decreased white blood cell count, unspecified Status: Acute Assessment and Plan: Likely secondary to chemo therapy. Monitor CBC. Blood culture is negative so far. Staphylococcus epidermidis in 1 aerobic bottle only, likely contaminant. MRSA screen is also negative. Antibiotic stoppedstrep thorat swab is negative. will get ct soft tissue neck to furthe revaluate (4) Hypertension: Code(s): I10 - Essential (primary) hypertension Status: Chronic Assessment and Plan: Resume home meds (5) Diarrhea: Qualifiers: Diarrhea type: unspecified type Qualified Code(s): R19.7 - Diarrhea, unspecified Code(s): R19.7 - Diarrhea, unspecified Status: Acute Assessment and Plan: Resolved Plan Biopsy-proven focal crescentic necrotizing pauci immune glomerulonephritis. P-ANCA positive on steroid and cyclophosphamide treated with pulse dose steroids and IV Cytoxan in May 2022. On Cytoxan and steroid currently Chronic anemia likely due to CKD. Epogen with hemodialysis Atrial fibrillation on anticoagulation with Eliquis rate control with metoprolol Congestive heart failure chronic diastolic Hypoxic respiratory failure needing oxygen supplementation on admission. Continue diuresis. Chest x-ray with diffuse lung disease consider pulmonary edema or less likely pneumonia History of GI bleed with gastric ulceration. On PPI Moderate aortic stenosis Hypertension DVT prophylaxis on Eliquis Code status full code Subjective Date/time seen: 10/04/22 11:04 Interval history: No complaints Exam Narrative: General: male in NAD Skin bruises noted on his chest wall superficial Heart: normal S1 and S2; Irregular irregular rhythm no rub or gallop Lungs: Diminished breath sounds bilaterally. On nasal cannula oxygen Abdomen: soft, nontender, nondistended, positive bowel sounds Extremities: 1+ edema noted bilateral lower extremity Neurological: Alert and oriented x3 cranial nerves 2-12 generalized weakness noted Objective Data Vital Signs Vital Signs: Vital Signs - 24 hr 10/03/22 12:04 10/03/22 12:07 10/03/22 12:24 Temperature 96.9 F L Pulse Rate 103 H Respiratory Rate 22 H Blood Pressure 97/82 L Pulse Oximetry 95 99 98 Oxygen Delivery Nasal Cannula Nasal Cannula Oxygen Flow Rate 3 2 10/03/22 13:50 10/03/22 12:00 10/03/22 14:00 Temperature Pulse Rate 106 H 97 Respiratory Rate Blood Pressure Pulse Oximetry 93 Oxygen Delivery Nasal Cannula Oxygen Flow Rate 2 10/03/22 16:00 10/03/22 12:00 10/03/22 16:00 Temperature 96.9 F L Pulse Rate 94 94 Respiratory Rate 20 20 Blood Pressure 107/87 Pulse Oximetry 100 98 98 Oxygen Delivery Nasal Cannula Nasal Cannula Oxygen Flow Rate 2 2 10/03/22 16:00 10/03/22 18:00 10/03/22 20:00 Temperature 97.5 F L Pulse Rate 100 98 92 Respiratory Rate 20 Blood Pressure 103/75 Pulse Oximetry 100 Oxygen Delivery Oxygen Flow Rate 10/03/22 21:03 10/03/22 20:00 10/03/22 20:00 Temperature Pulse Rate 95 93 Re
--- NOTE | 2022-10-04 11:23 | PCOTNOTE ---
Pt is currently out of room for dialysis. Will continue per POC duration/frequency tomorrow.
--- NOTE | 2022-10-04 11:42 | PCSTNOTE ---
Order received for modified barium swallow study. Patient is off unit for dialysis until afternoon. Will leave on schedule for tomorrow, as no [employer] will be available later today.
[2022-10-04] MEDS: predniSONE 10 MG TABLET PO ×2 (13:01→17:51)
[2022-10-04] MEDS: FAMOTIDINE 20 MG TABLET PO ×2 (13:02→20:46)
[2022-10-04] MEDS: FUROSEMIDE 40 MG TABLET PO (13:02)
[2022-10-04] MEDS: METOPROLOL TARTRATE 50 MG TAB PO ×2 (13:02→20:46)
[2022-10-04] MEDS: PANTOPRAZOLE 40 MG TABLET PO (13:02)
[2022-10-04] MEDS: amLODIPine BESYLATE 5 MG TABLET PO (13:02)
[2022-10-04] MEDS: APIXABAN 2.5 MG TABLET PO ×2 (13:02→20:46)
[2022-10-04] MEDS: FLUTICASONE PROPIONATE 0.05% NA SPR 16 GM BTL (*BKC) 1 SPRAY NASAL ×2 (13:02→20:46)
[2022-10-04] MEDS: ACETAMINOPHEN 325 MG TABLET 650 MG PO ×2 (13:08→20:42)
--- NOTE | 2022-10-04 15:07 | PC.NURSE ---
This patient, Arthur Cantor Jr., was transferred to [facility] on 10/04/22 at 1507. Personal belongings sent with patient. Report given to LUBNA Grigsby. Appropriate documentation sent with patient.
--- NOTE | 2022-10-04 15:44 | PC.NURSE ---
This patient, Arthur Arriaga Sakshi Patel, was received from IMU on 10/04/22 at 1500. Patient/family oriented to unit policies and routines
[2022-10-04 18:40] LABS: Glucose Point of Care 304 mg/dl (65-105)
[2022-10-04] MEDS: BENZOCAINE/MENTHOL (*BKC) 18 EA LOZENGE 1 LOZENGE PO (20:45)
[2022-10-04 22:13] LABS: Glucose Point of Care 227 mg/dl (65-105)
[2022-10-05] VITALS (26 sets, daily range): BP systolic 93–118; BP diastolic 50–95; PULSE 80–104; RESP 14–20; TEMP 36–37; O2SAT 93–98
[2022-10-05] MEDS: ACETAMINOPHEN 325 MG TABLET 650 MG PO (03:40)
[2022-10-05 06:17] LABS: Estimated CRCL calculation 9 ml/min; Estimated Glomerular Filt Rate 6
[2022-10-05 07:36] LABS: Glucose Point of Care 127 mg/dl (65-105)
--- NOTE | 2022-10-05 08:40 | PM.PNPUL ---
Progress Note: A&P Assessment and Plan (1) Microscopic polyangiitis: Code(s): M31.7 - Microscopic polyangiitis Status: Acute (2) Respiratory failure: Code(s): J96.90 - Respiratory failure, unspecified, unspecified whether with hypoxia or hypercapnia Status: Acute Assessment and Plan: Respiratory status improved following daily hemodialysis with fluid removal. New hemodialysis planned for today. On physical exam he no longer has lower extremity edema. Currently on room air. chest exam showing rare crackles at the bases as before. Possible underlying sleep disordered breathing needs to be excluded. Plan: Await video swallow study. Chest fluoroscopy for possible left hemidiaphragm paralysis. Will do [facility] prior to DC home. He may need oxygen at night. Case was discussed with the hospitalist. (3) ESRD (end stage renal disease) on dialysis: Code(s): N18.6 - End stage renal disease; Z99.2 - Dependence on renal dialysis Status: Acute (4) Immunosuppression: Code(s): D84.9 - Immunodeficiency, unspecified Status: Acute (5) Leukopenia: Code(s): D72.819 - Decreased white blood cell count, unspecified Status: Acute (6) Atrial fibrillation and flutter: Code(s): I48.91 - Unspecified atrial fibrillation; I48.92 - Unspecified atrial flutter Status: Acute (7) Biventricular CHF (congestive heart failure): Code(s): I50.82 - Biventricular heart failure Status: Acute (8) Anemia: Code(s): D64.9 - Anemia, unspecified Status: Acute Subjective Date/time seen: 10/05/22 08:40 Interval history: Patient with no new respiratory symptoms. Respiratory status improved with fluid removal. Currently on just room air. Review of Systems Review of Systems: All systems reviewed & are unremarkable except as noted in HPI and below (HPI and below) Exam Narrative: GENERAL APPEARANCE: Well developed, well nourished, alert and cooperative, and appears to be in no acute distress while breathing R/A SKIN: Inspection of the skin reveals neck petechiae. HEENT: Sclerae anicteric and conjunctivae pink and moist. Extraocular movements were intact and pupils were equal, round, and reactive to light. Dry oral mucosa NECK: Supple. There was no thyroid enlargement, and no tenderness, or masses were felt. CHEST: Normal AP diameter and normal contour without any kyphoscoliosis. LUNGS: Auscultation of the lungs rare crackles at bases posteriorly no wheezing CARDIAC: There was a irregular rate and rhythm without any murmurs. ABDOMEN: Soft and nontender with normal bowel sounds. There was no organomegaly. LYMPH NODES: No lymphadenopathy was appreciated in the neck. EXTREMITIES: No cyanosis, clubbing. No pedal edema NEUROLOGIC: Alert and oriented x 3. Normal affect. Objective Data Vital Signs Vital Signs: Vital Signs - 24 hr 10/04/22 08:50 10/04/22 08:57 10/04/22 08:58 Temperature 36.6 C Pulse Rate 95 95 Respiratory Rate 20 Blood Pressure 115/90 112/87 Pulse Oximetry Oxygen Delivery Oxygen Flow Rate 2 Fraction of Inspired Oxygen 10/04/22 09:00 10/04/22 09:20 10/04/22 09:40 Temperature Pulse Rate 90 91 94 Respiratory Rate Blood Pressure 116/82 117/86 121/95 H Pulse Oximetry Oxygen Delivery Oxygen Flow Rate Fraction of Inspired Oxygen 10/04/22 10:00 10/04/22 10:20 10/04/22 10:40 Temperature Pulse Rate 98 59 L 56 L Respiratory Rate Blood Pressure 122/94 H 127/65 159/77 H Pulse Oximetry Oxygen Delivery Oxygen Flow Rate Fraction of Inspired Oxygen 10/04/22 11:00 10/04/22 11:20 10/04/22 11:40 Temperature Pulse Rate 58 L 49 L 73 Respiratory Rate Blood Pressure 107/85 127/95 H 97/74 L Pulse Oximetry Oxygen Delivery Oxygen Flow Rate Fraction of Inspired Oxygen 10/04/22 12:00 10/04/22 13:02 10/04/22 12:00 Temperature 36.5 C Pulse Rate 99 102
[2022-10-05] MEDS: APIXABAN 2.5 MG TABLET PO ×2 (09:28→20:00)
[2022-10-05] MEDS: FLUTICASONE PROPIONATE 0.05% NA SPR 16 GM BTL (*BKC) 1 SPRAY NASAL ×2 (09:32→20:00)
[2022-10-05] MEDS: FUROSEMIDE 40 MG TABLET PO (09:32)
[2022-10-05] MEDS: METOPROLOL TARTRATE 50 MG TAB PO ×2 (09:32→20:00)
[2022-10-05] MEDS: PANTOPRAZOLE 40 MG TABLET PO (09:34)
[2022-10-05] MEDS: predniSONE 10 MG TABLET PO ×2 (09:34→18:31)
[2022-10-05] MEDS: FAMOTIDINE 20 MG TABLET PO ×2 (09:35→20:00)
--- NOTE | 2022-10-05 10:49 | PM.IMPN ---
Progress Note: A&P Assessment and Plan (1) Fall: Code(s): W19.XXXA - Unspecified fall, initial encounter Status: Acute Assessment and Plan: Placement likely. (2) ESRD (end stage renal disease) on dialysis: Code(s): N18.6 - End stage renal disease; Z99.2 - Dependence on renal dialysis Status: Acute Assessment and Plan: Hemodialysis as needed. Monitor electrolytes. (3) Leukopenia: Code(s): D72.819 - Decreased white blood cell count, unspecified Status: Acute Assessment and Plan: Secondary to immunosuppressive medications. Managed by Nephrology. ? Switch Cytoxan to another agent. Question change immunosuppressive regimen. Continue low-dose prednisone. Can likely be on a lower dose as well. High risk for superinfection. (4) Hypertension: Code(s): I10 - Essential (primary) hypertension Status: Chronic Assessment and Plan: Monitor blood pressure. (5) Diarrhea: Qualifiers: Diarrhea type: unspecified type Qualified Code(s): R19.7 - Diarrhea, unspecified Code(s): R19.7 - Diarrhea, unspecified Status: Acute Assessment and Plan: Resolved Subjective Date/time seen: 10/05/22 10:49 Interval history: breathing much better. Patient still feels weak. Exam Narrative: General: male in NAD Skin bruises noted on his chest wall superficial Heart: normal S1 and S2; Irregular irregular rhythm no rub or gallop Lungs: Diminished breath sounds bilaterally. On nasal cannula oxygen Abdomen: soft, nontender, nondistended, positive bowel sounds Extremities: 1+ edema noted bilateral lower extremity Neurological: Alert and oriented x3 cranial nerves 2-12 generalized weakness noted Objective Data Vital Signs Vital Signs: Vital Signs - 24 hr 10/04/22 11:00 10/04/22 11:20 10/04/22 11:40 Temperature Pulse Rate 58 L 49 L 73 Respiratory Rate Blood Pressure 107/85 127/95 H 97/74 L Pulse Oximetry Oxygen Delivery Fraction of Inspired Oxygen 10/04/22 12:00 10/04/22 13:02 10/04/22 12:00 Temperature 97.7 F Pulse Rate 99 102 H 53 L Respiratory Rate 18 Blood Pressure 122/88 124/77 Pulse Oximetry 100 Oxygen Delivery Fraction of Inspired Oxygen 10/04/22 12:05 10/04/22 12:00 10/04/22 14:00 Temperature 97.8 F Pulse Rate 97 101 H 81 Respiratory Rate 20 Blood Pressure 123/90 Pulse Oximetry Oxygen Delivery Fraction of Inspired Oxygen 10/04/22 15:10 10/04/22 15:04 10/04/22 16:00 Temperature 97.2 F L 97.3 F L Pulse Rate 87 84 Respiratory Rate 14 14 Blood Pressure 91/75 L 114/97 H Pulse Oximetry 95 95 94 Oxygen Delivery Room Air Fraction of Inspired Oxygen 21 10/04/22 13:45 10/04/22 16:00 10/04/22 20:00 Temperature 97.4 F L Pulse Rate 93 91 Respiratory Rate 20 Blood Pressure 103/82 Pulse Oximetry 94 Oxygen Delivery Room Air Fraction of Inspired Oxygen 10/04/22 20:46 10/04/22 23:43 10/04/22 20:00 Temperature 97.2 F L Pulse Rate 91 81 94 Respiratory Rate 20 Blood Pressure 99/84 L Pulse Oximetry 97 Oxygen Delivery Fraction of Inspired Oxygen 10/05/22 00:00 10/04/22 23:30 10/05/22 03:48 Temperature 97.8 F Pulse Rate 95 90 Respiratory Rate 18 Blood Pressure 118/75 Pulse Oximetry 97 98 Oxygen Delivery Room Air Fraction of Inspired Oxygen 10/05/22 04:00 10/05/22 08:00 10/05/22 09:32 Temperature 97.1 F L Pulse Rate 86 89 80 Respiratory Rate 14 Blood Pressure 95/79 L Pulse Oximetry 95 Oxygen Delivery Fraction of Inspired Oxygen Intake/Output Intake/Output: Intake & Output 10/02/22 10/03/22 10/04/22 10/05/22 23:59 23:59 23:59 23:59 Intake Total 880 1490 840 Output Total 4100 0 3200 Balance -3220 1490 -2360 Meds/Results Medications: Active Medications Generic Name Dose Route Start Last Admin Trade Name Freq PRN [place]
[2022-10-05 11:29] LABS: Glucose Point of Care 260 mg/dl (65-105)
--- NOTE | 2022-10-05 14:13 | PCOTNOTE ---
Patient is currently out of room for dialysis. Will continue per POC duration/frequency tomorrow.
[2022-10-05] MEDS: ALBUMIN HUMAN 25% 12.5 GM/50ML 50 ML IVPB (14:20)
--- NOTE | 2022-10-05 14:30 | PM.PNNEP ---
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 hold cytoxan due to leukopenia and thrombocytopenia, but continue steroids follow trend of repeat labs and UOP (to assess for potential renal recovery) (2) Chronic kidney disease, stage IV (severe): Code(s): N18.4 - Chronic kidney disease, stage 4 (severe) Status: Chronic Assessment and Plan: since 2019, creatinine has been running ~ 1.4 - 1.7mg/dl however, in July 2021, it increased to 1.93mg/dl then, in March 2022, it was 2.32mg/dl on discharge in early May 2022, it was 3.3mg/dl outpatient labs on 05/28/22, creatinine up to 4.4mg/dl probably has some underlying chronic kidney disease due to HTN, vascular disease/CHF, and age not clear when microscopic polyangiitis started ... (3) Acute hypoxemic respiratory failure: Code(s): J96.01 - Acute respiratory failure with hypoxia Status: Acute Assessment and Plan: as noted on admission still requiring supplemental oxygen CXR and CT of chest results noted attempting to push fluid removal with dialysis DUF (dry ultrafiltration) intermittently for further fluid removal -- DUF yesterday on antibiotics for possible pneumonia Pulmonary recommendations noted (4) Leukopenia: Code(s): D72.819 - Decreased white blood cell count, unspecified Status: Acute Assessment and Plan: improving likely secondary to cytoxan hold this for now follow WBC (5) Fall: Code(s): W19.XXXA - Unspecified fall, initial encounter Status: Acute Assessment and Plan: possibly due to previous diarrhea (which has resolved) r/o infection given immunosuppression -- culture negative to date PT/OT as tolerated (6) Hypertension: Code(s): I10 - Essential (primary) hypertension Status: Chronic Assessment and Plan: reasonable control follow trend of hemodynamics (7) Atrial fibrillation: Code(s): I48.91 - Unspecified atrial fibrillation Status: Acute Assessment and Plan: rate control strategy on metoprolol on anticoagulation (8) Anemia: Code(s): D64.9 - Anemia, unspecified Status: Chronic Assessment and Plan: due to RAMIRO, CKD, and dialysis dependence Epogen with HD follow H/H Will continue to follow. Subjective Date/time seen: 10/05/22 14:30 Interval history: Follow-up for RAMIRO on CKD requiring renal replacement therapy/hemodialysis. Tolerating hemodialysis treatment at the time of my visit (seen on HD at ~ 2:15PM); breathing/respiratory status seems to be slowly improving with current interventions; no acute distress noted. Exam Narrative: General: WD/WN elderly male in NAD Heart: normal S1 and S2; irregular irregular; no rub Lungs: coarse breath sounds Abdomen: soft, nontender, nondistended, positive bowel sounds Extremities: no cyanosis or clubbing; no edema Skin: warm and intact Objective Data Vital Signs Vital Signs: Vital Signs Temp Pulse Resp BP Pulse Ox O2 Del Method 10/05/22 14:20 95 102/84 10/05/22 14:07 100 94/75 L 10/05/22 14:00 97.8 F 97 20 102/83 93 10/05/22 12:00 97.3 F L 86 14 97/75 L 93 10/05/22 08:00 95 Room
--- NOTE | 2022-10-05 14:30 | P.PNNP_ITS ---
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 * hold cytoxan due to leukopenia and thrombocytopenia, but continue steroids * follow trend of repeat labs and UOP (to assess for potential renal recovery) (2) Chronic kidney disease, stage IV (severe): Code(s): N18.4 - Chronic kidney disease, stage 4 (severe) Status: Chronic Assessment and Plan: * since 2019, creatinine has been running ~ 1.4 - 1.7mg/dl * however, in July 2021, it increased to 1.93mg/dl * then, in March 2022, it was 2.32mg/dl * on discharge in early May 2022, it was 3.3mg/dl * outpatient labs on 05/28/22, creatinine up to 4.4mg/dl * probably has some underlying chronic kidney disease due to HTN, vascular disease/CHF, and age * not clear when microscopic polyangiitis started ... (3) Acute hypoxemic respiratory failure: Code(s): J96.01 - Acute respiratory failure with hypoxia Status: Acute Assessment and Plan: * as noted on admission * still requiring supplemental oxygen * CXR and CT of chest results noted * attempting to push fluid removal with dialysis * DUF (dry ultrafiltration) intermittently for further fluid removal -- DUF yesterday * on antibiotics for possible pneumonia * Pulmonary recommendations noted (4) Leukopenia: Code(s): D72.819 - Decreased white blood cell count, unspecified Status: Acute Assessment and Plan: * improving * likely secondary to cytoxan * hold this for now * follow WBC (5) Fall: Code(s): W19.XXXA - Unspecified fall, initial encounter Status: Acute Assessment and Plan: * possibly due to previous diarrhea (which has resolved) * r/o infection given immunosuppression -- culture negative to date * PT/OT as tolerated (6) Hypertension: Code(s): I10 - Essential (primary) hypertension Status: Chronic Assessment and Plan: * reasonable control * follow trend of hemodynamics (7) Atrial fibrillation: Code(s): I48.91 - Unspecified atrial fibrillation Status: Acute Assessment and Plan: * rate control strategy * on metoprolol * on anticoagulation (8) Anemia: Code(s): D64.9 - Anemia, unspecified Status: Chronic Assessment and Plan: * due to RAMIRO, CKD, and dialysis dependence * Epogen with HD * follow H/H Will continue to follow. Subjective Date/time seen: 10/05/22 14:30 Interval history: Follow-up for RAMIRO on CKD requiring renal replacement therapy/hemodialysis. Tolerating hemodialysis treatment at the time of my visit (seen on HD at ~ 2:15PM); breathing/respiratory status seems to be slowly improving with current interventions; no acute distress noted. Exam Narrative: General: WD/WN elderly male i
[2022-10-05] MEDS: EPOETIN ALFA-EPBX 10,000 UNITS/ML VIAL 10000 UNITS IV PUSH (15:11)
[2022-10-05] MEDS: NYSTATIN 100,000 UNITS/ML SUSP 5 ML ORAL.SUSP PO ×2 (18:35→20:00)
--- NOTE | 2022-10-05 19:33 | PC.NURSE ---
Pt is A&O4 male who participated and contributed in plan of care. Pt has reported throat pain. Pt was diagnosed with thrush and is now being treated with nystatin. Pt went to dialysis today and had 400mL removed. Pt has expressed no needs at this time. Will continue to monitor pt.
[2022-10-06] VITALS (10 sets, daily range): BP systolic 96–115; BP diastolic 63–96; PULSE 65–108; RESP 16–20; TEMP 35.8–36.4; O2SAT 95–98
--- NOTE | 2022-10-06 06:16 | PCRCNOTE ---
Apnea link has to be repeated due to computer not downloading the information.
[2022-10-06] MEDS: FUROSEMIDE 40 MG TABLET PO (08:05)
[2022-10-06] MEDS: FAMOTIDINE 20 MG TABLET PO ×2 (08:05→20:50)
[2022-10-06] MEDS: NYSTATIN 100,000 UNITS/ML SUSP 5 ML ORAL.SUSP PO ×4 (08:05→20:53)
[2022-10-06] MEDS: PANTOPRAZOLE 40 MG TABLET PO (08:05)
[2022-10-06] MEDS: amLODIPine BESYLATE 5 MG TABLET PO (08:05)
[2022-10-06] MEDS: predniSONE 10 MG TABLET PO ×2 (08:05→16:53)
[2022-10-06] MEDS: FLUTICASONE PROPIONATE 0.05% NA SPR 16 GM BTL (*BKC) 1 SPRAY NASAL ×2 (08:05→20:50)
[2022-10-06] MEDS: APIXABAN 2.5 MG TABLET PO ×2 (08:05→20:50)
[2022-10-06] MEDS: METOPROLOL TARTRATE 50 MG TAB PO ×2 (08:08→20:51)
[2022-10-06 09:24] LABS: Hematocrit 32.2 % (42.0-52.0); Hemoglobin 10.2 g/dL (14.0-18.0); Mean Corpuscular HGB Conc 31.7 g/dl (32-36); Mean Corpuscular Hemoglobin 33.6 pg (26-34); Mean Corpuscular Volume 105.9 fl (80-100); Mean Platelet Volume 10.9 fl (7.4-10.4); Platelet Count Result 158 k/mm3 (150-375); Red Blood Count 3.04 M/mm3 (4.6-6.20); Red Cell Distribution Width 16.7 % (11.5-14.5); White Blood Count 7.3 K/mm3 (4.5-10.0)
[2022-10-06 09:38] LABS: Albumin Level 3.6 g/dL (3.5-5.1); Anion Gap 11 mmol/L (8-16); Blood Urea Nitrogen 77 mg/dL (9-20); Calcium 7.7 mg/dL (8.4-10.2); Carbon Dioxide 28 mmol/L (22-30); Chloride 98 mmol/L (98-107); Estimated CRCL calculation 12 ml/min; Estimated Glomerular Filt Rate 9; Glucose 142 mg/dL (65-110); Magnesium 2.1 mg/dL (1.6-2.3); Phosphorus 7.5 mg/dL (2.5-4.5); Sodium 137 mmol/L (137-145)
--- NOTE | 2022-10-06 12:58 | PCNFU ---
Nutrition Follow-Up Complete: Increased nutrient needs related to dialysis as evidenced by estimated needs Goal: PO intake to remain 75% or greater most meals - goal is being met Pt current nutrition is Renal dialysis diet. Nepro 1x daily for additional 420 kcals and 19 g protein. Intakes good 80-100%. Nutrition recommendation: Continue with current orders and care plan. Agree with orders Last recorded weight is 129 kg. Down from 135 kg 09/30/22. Likely related to fluid shifts from dialysis. Bowel Motility: +1 BM 10/06/22 Labs Reviewed: Hgb 10.2, Hct 32.2, BUN 77, Cre 6.3, PO5 7.5 Meds Noted:Albumin, Eliquis, Lasix, protonix, prednisone Skin: WNL Additional Notes: PO intakes are good, improved from last follow up. Continue with nutrition care plan. Monitor intake, wt, labs. Follow up in 7 days.
--- NOTE | 2022-10-06 14:38 | P.PNNP_ITS ---
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 * hold cytoxan due to leukopenia and thrombocytopenia, but continue steroids * follow trend of repeat labs and UOP (to assess for potential renal recovery) (2) Chronic kidney disease, stage IV (severe): Code(s): N18.4 - Chronic kidney disease, stage 4 (severe) Status: Chronic Assessment and Plan: * since 2019, creatinine has been running ~ 1.4 - 1.7mg/dl * however, in July 2021, it increased to 1.93mg/dl * then, in March 2022, it was 2.32mg/dl * on discharge in early May 2022, it was 3.3mg/dl * outpatient labs on 05/28/22, creatinine up to 4.4mg/dl * probably has some underlying chronic kidney disease due to HTN, vascular disease/CHF, and age * not clear when microscopic polyangiitis started ... (3) Acute hypoxemic respiratory failure: Code(s): J96.01 - Acute respiratory failure with hypoxia Status: Acute Assessment and Plan: * as noted on admission * CXR and CT of chest results noted * attempting to push fluid removal with dialysis * DUF (dry ultrafiltration) intermittently for further fluid removal * on antibiotics for possible pneumonia * Pulmonary recommendations noted (4) Leukopenia: Code(s): D72.819 - Decreased white blood cell count, unspecified Status: Acute Assessment and Plan: * improving * likely secondary to cytoxan * hold this for now * follow WBC (5) Fall: Code(s): W19.XXXA - Unspecified fall, initial encounter Status: Acute Assessment and Plan: * possibly due to previous diarrhea (which has resolved) * r/o infection given immunosuppression -- culture negative to date * PT/OT as tolerated (6) Hypertension: Code(s): I10 - Essential (primary) hypertension Status: Chronic Assessment and Plan: * reasonable control * follow trend of hemodynamics (7) Atrial fibrillation: Code(s): I48.91 - Unspecified atrial fibrillation Status: Acute Assessment and Plan: * rate control strategy * on metoprolol * on anticoagulation (8) Anemia: Code(s): D64.9 - Anemia, unspecified Status: Chronic Assessment and Plan: * due to RAMIRO, CKD, and dialysis dependence * Epogen with HD * follow H/H Will continue to follow. Subjective Date/time seen: 10/06/22 14:38 Interval history: Follow-up for RAMIRO on CKD requiring renal replacement therapy/hemodialysis. Tolerating hemodialysis treatment yesterday without any issues/problems although fluid removal is challenging given his relative hypotension; breath ing/respiratory status seems stable; no acute distress noted at the time of my visit. Exam Narrative: General: WD/WN elderly male in NAD Heart: davina
--- NOTE | 2022-10-06 14:38 | PM.PNNEP ---
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 hold cytoxan due to leukopenia and thrombocytopenia, but continue steroids follow trend of repeat labs and UOP (to assess for potential renal recovery) (2) Chronic kidney disease, stage IV (severe): Code(s): N18.4 - Chronic kidney disease, stage 4 (severe) Status: Chronic Assessment and Plan: since 2019, creatinine has been running ~ 1.4 - 1.7mg/dl however, in July 2021, it increased to 1.93mg/dl then, in March 2022, it was 2.32mg/dl on discharge in early May 2022, it was 3.3mg/dl outpatient labs on 05/28/22, creatinine up to 4.4mg/dl probably has some underlying chronic kidney disease due to HTN, vascular disease/CHF, and age not clear when microscopic polyangiitis started ... (3) Acute hypoxemic respiratory failure: Code(s): J96.01 - Acute respiratory failure with hypoxia Status: Acute Assessment and Plan: as noted on admission CXR and CT of chest results noted attempting to push fluid removal with dialysis DUF (dry ultrafiltration) intermittently for further fluid removal on antibiotics for possible pneumonia Pulmonary recommendations noted (4) Leukopenia: Code(s): D72.819 - Decreased white blood cell count, unspecified Status: Acute Assessment and Plan: improving likely secondary to cytoxan hold this for now follow WBC (5) Fall: Code(s): W19.XXXA - Unspecified fall, initial encounter Status: Acute Assessment and Plan: possibly due to previous diarrhea (which has resolved) r/o infection given immunosuppression -- culture negative to date PT/OT as tolerated (6) Hypertension: Code(s): I10 - Essential (primary) hypertension Status: Chronic Assessment and Plan: reasonable control follow trend of hemodynamics (7) Atrial fibrillation: Code(s): I48.91 - Unspecified atrial fibrillation Status: Acute Assessment and Plan: rate control strategy on metoprolol on anticoagulation (8) Anemia: Code(s): D64.9 - Anemia, unspecified Status: Chronic Assessment and Plan: due to RAMIRO, CKD, and dialysis dependence Epogen with HD follow H/H Will continue to follow. Subjective Date/time seen: 10/06/22 14:38 Interval history: Follow-up for RAMIRO on CKD requiring renal replacement therapy/hemodialysis. Tolerating hemodialysis treatment yesterday without any issues/problems although fluid removal is challenging given his relative hypotension; breathing/respiratory status seems stable; no acute distress noted at the time of my visit. Exam Narrative: General: WD/WN elderly male in NAD Heart: normal S1 and S2; irregular irregular; no rub Lungs: coarse breath sounds Abdomen: soft, nontender, nondistended, positive bowel sounds Extremities: no cyanosis or clubbing; no edema Skin: warm and intact Objective Data Vital Signs Vital Signs: Vital Signs Temp Pulse Resp BP Pulse Ox O2 Del Method 10/06/22 12:00 97.6 F 90 18 96/63 L 98 10/06/22 12:03 88 10/06/22 08:02 93 10/06/22 08:00 Room Air 10/06/22 08:08 92 10/06/22 04:00 87 10/06/22 04:00 97.4
--- NOTE | 2022-10-06 16:23 | WPDPN ---
Progress Note: A&P Assessment and Plan (1) Fall: Code(s): W19.XXXA - Unspecified fall, initial encounter Status: Acute Assessment and Plan: Placement likely. 10/06/2022 interval history: Today patient is sitting in the chair states feeling much, patient is waiting for the placement will continue to monitor (2) ESRD (end stage renal disease) on dialysis: Code(s): N18.6 - End stage renal disease; Z99.2 - Dependence on renal dialysis Status: Acute Assessment and Plan: Hemodialysis as needed. Monitor electrolytes. (3) Leukopenia: Code(s): D72.819 - Decreased white blood cell count, unspecified Status: Acute Assessment and Plan: Secondary to immunosuppressive medications. Managed by Nephrology. ? Switch Cytoxan to another agent. Question change immunosuppressive regimen. Continue low-dose prednisone. Can likely be on a lower dose as well. High risk for superinfection. (4) Hypertension: Code(s): I10 - Essential (primary) hypertension Status: Chronic Assessment and Plan: Monitor blood pressure. (5) Diarrhea: Qualifiers: Diarrhea type: unspecified type Qualified Code(s): R19.7 - Diarrhea, unspecified Code(s): R19.7 - Diarrhea, unspecified Status: Acute Assessment and Plan: Resolved Subjective Date/time seen: 10/06/22 16:23 Interval history: Follow-up for RAMIRO on CKD requiring renal replacement therapy/hemodialysis. Tolerating dry ultrafiltration treatment at the time of my visit (seen on DUF at 9:30AM); respiratory status seems relatively stable with ongoing use of supplemental oxygen; continuing to push fluid removal with hemodialysis alternating with dry ultrafiltration as tolerated by hemodynamics; no other acute issues/events overnight or earlier this morning. 10/06/2022 interval history: Today patient is sitting in the chair states feeling much, patient is waiting for the placement will continue to monitor Review of Systems Review of Systems: All systems reviewed & are unremarkable except as noted in HPI and below (HPI and below) Exam Narrative: Morbidly obese Patient is comfortable, NAD HEENT: eyes are clear and none icteric LUNGS: Normal respiratory effort ABD: Distended Lower no edema SKIN: nonjaundiced Neuro: grossly intact. Objective Data Vital Signs Vital Signs: Vital Signs - 24 hr 10/05/22 16:40 10/05/22 17:00 10/05/22 17:20 Temperature Pulse Rate 104 H 102 H 102 H Respiratory Rate Blood Pressure 102/50 L 116/89 117/77 Pulse Oximetry Oxygen Delivery 10/05/22 17:38 10/05/22 17:45 10/05/22 20:00 Temperature 98.6 F Pulse Rate 98 104 H 87 Respiratory Rate 20 Blood Pressure 116/95 H 116/89 Pulse Oximetry 95 Oxygen Delivery 10/05/22 20:00 10/05/22 23:48 10/05/22 20:00 Temperature 97.4 F L 97.4 F L Pulse Rate 90 88 104 H Respiratory Rate 20 20 Blood Pressure 93/79 L 106/92 H Pulse Oximetry 96 94 Oxygen Delivery 10/06/22 00:00 10/06/22 04:00 10/06/22 04:00 Temperature 97.4 F L Pulse Rate 83 65 87 Respiratory Rate 20 Blood Pressure 102/75 Pulse Oximetry 95 Oxygen Delivery 10/06/22 08:08 10/06/22 08:00 10/06/22 08:02 Temperature Pulse Rate 92 93 Respiratory Rate Blood Pressure Pulse Oximetry Oxygen Delivery Room Air 10/06/22 12:03 10/06/22 12:00 Temperature 97.6 F Pulse Rate 88 90 Respiratory Rate 18 Blood Pressure 96/63 L Pulse Oximetry 98 Oxygen Delivery Intake/Output Intake/Output: Intake & Output 10/03/22 10/04/22 10/05/22 10/06/22 23:59 23:59 23:59 23:59 Intake Total 1490 840 952 480 Output Total 0 3200 450 100 Balance 1490 -2360 502 380 Meds/Results Medications: Active Medications Generic Name Dose Route Start Last Admin Trade Name Freq PRN Reason Stop Dose Admin Acetaminophen 650 mg 09/23/22 06:28 10/05/22 03:40 Acet
--- NOTE | 2022-10-06 16:29 | PC.NURSE ---
Pt is A&O4 male who participates and contributes in plan of care. Pt has reported some throat discomfort today. Pt continues to be treated with nystatin. Pt has expressed no needs at this time. Will continue to monitor pt.
[2022-10-06] MEDS: BENZOCAINE/MENTHOL (*BKC) 18 EA LOZENGE 1 LOZENGE PO (20:48)
[2022-10-07] VITALS (24 sets, daily range): BP systolic 90–139; BP diastolic 47–97; PULSE 74–135; RESP 14–20; TEMP 35.7–36.6; O2SAT 93–97
[2022-10-07 05:58] LABS: Hematocrit 31.4 % (42.0-52.0); Mean Corpuscular HGB Conc 31.8 g/dl (32-36); Mean Corpuscular Hemoglobin 33.7 pg (26-34); Mean Corpuscular Volume 105.7 fl (80-100); Mean Platelet Volume 10.9 fl (7.4-10.4); Platelet Count Result 164 k/mm3 (150-375); Red Blood Count 2.97 M/mm3 (4.6-6.20); Red Cell Distribution Width 16.5 % (11.5-14.5); White Blood Count 6.7 K/mm3 (4.5-10.0)
[2022-10-07 06:19] LABS: Albumin Level 3.5 g/dL (3.5-5.1); Anion Gap 13 mmol/L (8-16); Blood Urea Nitrogen 89 mg/dL (9-20); Calcium 7.6 mg/dL (8.4-10.2); Carbon Dioxide 26 mmol/L (22-30); Chloride 97 mmol/L (98-107); Estimated CRCL calculation 10 ml/min; Estimated Glomerular Filt Rate 7; Glucose 104 mg/dL (65-110); Magnesium 2.2 mg/dL (1.6-2.3); Phosphorus 9.8 mg/dL (2.5-4.5); Potassium 5.1 mmol/L (3.4-5.0); Sodium 136 mmol/L (137-145)
[2022-10-07] MEDS: APIXABAN 2.5 MG TABLET PO ×2 (08:45→19:35)
[2022-10-07] MEDS: PANTOPRAZOLE 40 MG TABLET PO (08:45)
[2022-10-07] MEDS: BENZOCAINE/MENTHOL (*BKC) 18 EA LOZENGE 1 LOZENGE PO (08:45)
[2022-10-07] MEDS: CALCIUM ACETATE 667 MG TABLET 1334 MG PO ×3 (08:45→18:00)
[2022-10-07] MEDS: NYSTATIN 100,000 UNITS/ML SUSP 5 ML ORAL.SUSP PO ×4 (08:46→19:35)
[2022-10-07] MEDS: predniSONE 10 MG TABLET PO ×2 (08:46→18:01)
[2022-10-07] MEDS: FLUTICASONE PROPIONATE 0.05% NA SPR 16 GM BTL (*BKC) 1 SPRAY NASAL (08:47)
--- NOTE | 2022-10-07 11:01 | PCRCNOTE ---
HOME O2 EVAL NOT REQUIRED, PT GOING TO SNF.
--- NOTE | 2022-10-07 11:26 | PM.PNNEP ---
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 hold cytoxan due to leukopenia and thrombocytopenia, but continue steroids will likely plan weaning off steroids as well follow trend of repeat labs and UOP (to assess for potential renal recovery) (2) Chronic kidney disease, stage IV (severe): Code(s): N18.4 - Chronic kidney disease, stage 4 (severe) Status: Chronic Assessment and Plan: since 2019, creatinine has been running ~ 1.4 - 1.7mg/dl however, in July 2021, it increased to 1.93mg/dl then, in March 2022, it was 2.32mg/dl on discharge in early May 2022, it was 3.3mg/dl outpatient labs on 05/28/22, creatinine up to 4.4mg/dl probably has some underlying chronic kidney disease due to HTN, vascular disease/CHF, and age not clear when microscopic polyangiitis started ... (3) Acute hypoxemic respiratory failure: Code(s): J96.01 - Acute respiratory failure with hypoxia Status: Acute Assessment and Plan: as noted on admission CXR and CT of chest results noted attempting to push fluid removal with dialysis DUF (dry ultrafiltration) intermittently for further fluid removal on antibiotics for possible pneumonia Pulmonary recommendations noted (4) Leukopenia: Code(s): D72.819 - Decreased white blood cell count, unspecified Status: Acute Assessment and Plan: improving likely secondary to cytoxan hold this for now follow WBC (5) Fall: Code(s): W19.XXXA - Unspecified fall, initial encounter Status: Acute Assessment and Plan: possibly due to previous diarrhea (which has resolved) r/o infection given immunosuppression -- culture negative to date PT/OT as tolerated (6) Hypertension: Code(s): I10 - Essential (primary) hypertension Status: Chronic Assessment and Plan: reasonable control follow trend of hemodynamics (7) Atrial fibrillation: Code(s): I48.91 - Unspecified atrial fibrillation Status: Acute Assessment and Plan: rate control strategy on metoprolol on anticoagulation (8) Anemia: Code(s): D64.9 - Anemia, unspecified Status: Chronic Assessment and Plan: due to RAMIRO, CKD, and dialysis dependence Epogen with HD follow H/H Will continue to follow. Subjective Date/time seen: 10/07/22 11:26 Interval history: Follow-up for RAMIRO on CKD requiring renal replacement therapy/hemodialysis. Tolerating hemodialysis treatment at the time of my visit (see on HD at 11:15AM); respiratory status has improved (off supplemental oxygen) although fluid removal is getting challenging due to relative hypotension in association with least 2 - 3L fluid gains in-between dialysis treatments; no apparent distress voiced; no issues/events overnight. Exam Narrative: General: WD/WN elderly male in NAD Heart: normal S1 and S2; irregular irregular; no rub Lungs: coarse breath sounds Abdomen: soft, nontender, nondistended, positive bowel sounds Extremities: no cyanosis or clubbing; no edema Skin: no rash Objective Data Vital Signs Vital Signs: Vital Signs Temp Pulse Resp BP Pulse Ox O2 Del Method 10/07/22 11:20 74 96/76 L 10/07/22 11:00
--- NOTE | 2022-10-07 11:26 | P.PNNP_ITS ---
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 * hold cytoxan due to leukopenia and thrombocytopenia, but continue steroids * will likely plan weaning off steroids as well * follow trend of repeat labs and UOP (to assess for potential renal recovery) (2) Chronic kidney disease, stage IV (severe): Code(s): N18.4 - Chronic kidney disease, stage 4 (severe) Status: Chronic Assessment and Plan: * since 2019, creatinine has been running ~ 1.4 - 1.7mg/dl * however, in July 2021, it increased to 1.93mg/dl * then, in March 2022, it was 2.32mg/dl * on discharge in early May 2022, it was 3.3mg/dl * outpatient labs on 05/28/22, creatinine up to 4.4mg/dl * probably has some underlying chronic kidney disease due to HTN, vascular disease/CHF, and age * not clear when microscopic polyangiitis started ... (3) Acute hypoxemic respiratory failure: Code(s): J96.01 - Acute respiratory failure with hypoxia Status: Acute Assessment and Plan: * as noted on admission * CXR and CT of chest results noted * attempting to push fluid removal with dialysis * DUF (dry ultrafiltration) intermittently for further fluid removal * on antibiotics for possible pneumonia * Pulmonary recommendations noted (4) Leukopenia: Code(s): D72.819 - Decreased white blood cell count, unspecified Status: Acute Assessment and Plan: * improving * likely secondary to cytoxan * hold this for now * follow WBC (5) Fall: Code(s): W19.XXXA - Unspecified fall, initial encounter Status: Acute Assessment and Plan: * possibly due to previous diarrhea (which has resolved) * r/o infection given immunosuppression -- culture negative to date * PT/OT as tolerated (6) Hypertension: Code(s): I10 - Essential (primary) hypertension Status: Chronic Assessment and Plan: * reasonable control * follow trend of hemodynamics (7) Atrial fibrillation: Code(s): I48.91 - Unspecified atrial fibrillation Status: Acute Assessment and Plan: * rate control strategy * on metoprolol * on anticoagulation (8) Anemia: Code(s): D64.9 - Anemia, unspecified Status: Chronic Assessment and Plan: * due to RAMIRO, CKD, and dialysis dependence * Epogen with HD * follow H/H Will continue to follow. Subjective Date/time seen: 10/07/22 11:26 Interval history: Follow-up for RAMIRO on CKD requiring renal replacement therapy/hemodialysis. Tolerating hemodialysis treatment at the time of my visit (see on HD at 11:15AM); respiratory status has improved (off supplemental oxygen) although fluid removal is getting challenging due to relative hypotension in association with least 2 - 3L fluid gains in-between dialysis treatments; no appa
--- NOTE | 2022-10-07 11:34 | PCPTNOTE ---
The patient treatment was not able to be completed due to patient out of room for dialysis. Will plan to continue treatment per plan of care.
[2022-10-07] MEDS: EPOETIN ALFA-EPBX 10,000 UNITS/ML VIAL 10000 UNITS IV PUSH (11:37)
[2022-10-07] MEDS: ALBUMIN HUMAN 25% 12.5 GM/50ML 50 ML IVPB (11:53)
--- NOTE | 2022-10-07 12:32 | PC.NURSE ---
was instructed by dialysis nurse to hold b/p and diuretic meds this am before dialysis. will give pt meds after dialysis. meds will be late
--- NOTE | 2022-10-07 14:04 | WPDPN ---
Progress Note: A&P Assessment and Plan (1) Fall: Code(s): W19.XXXA - Unspecified fall, initial encounter Status: Acute Assessment and Plan: Placement likely. 10/06/2022 interval history: Today patient is sitting in the chair states feeling much, patient is waiting for the placement will continue to monitor (2) ESRD (end stage renal disease) on dialysis: Code(s): N18.6 - End stage renal disease; Z99.2 - Dependence on renal dialysis Status: Acute Assessment and Plan: Hemodialysis as needed. Monitor electrolytes. (3) Leukopenia: Code(s): D72.819 - Decreased white blood cell count, unspecified Status: Acute Assessment and Plan: Secondary to immunosuppressive medications. Managed by Nephrology. ? Switch Cytoxan to another agent. Question change immunosuppressive regimen. Continue low-dose prednisone. Can likely be on a lower dose as well. High risk for superinfection. (4) Hypertension: Code(s): I10 - Essential (primary) hypertension Status: Chronic Assessment and Plan: Monitor blood pressure. 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 Objective Data Vital Signs Vital Signs: Vital Signs - 24 hr 10/06/22 20:51 10/06/22 22:05 10/06/22 20:00 Temperature 96.4 F L Pulse Rate 108 H 101 H Respiratory Rate 16 Blood Pressure 115/96 H Pulse Oximetry 98 95 Oxygen Delivery Room Air 10/06/22 20:50 10/07/22 00:00 10/07/22 04:00 Temperature 96.5 F L 96.3 F L Pulse Rate 108 H 90 92 Respiratory Rate 16 16 16 Blood Pressure 112/97 H 109/93 H Pulse Oximetry 98 97 94 Oxygen Delivery Room Air 10/07/22 08:00 10/07/22 08:40 10/07/22 09:50 Temperature 97.3 F L 97.8 F Pulse Rate 82 83 Respiratory Rate 14 20 Blood Pressure 114/77 100/47 L Pulse Oximetry 94 94 Oxygen Delivery Room Air 10/07/22 09:54 10/07/22 10:00 10/07/22 10:20 Temperature Pulse Rate 86 94 82 Respiratory Rate Blood Pressure 117/90 118/79 105/76 Pulse Oximetry Oxygen Delivery 10/07/22 10:40 10/07/22 11:00 10/07/22 11:20 Temperature Pulse Rate 74 99 74 Respiratory Rate Blood Pressure 98/71 L 100/75 96/76 L Pulse Oximetry Oxygen Delivery Intake/Output Intake/Output: Intake & Output 10/04/22 10/05/22 10/06/22 10/07/22 23:59 23:59 23:59 23:59 Intake Total 840 1002 720 250 Output Total 3200 450 100 25 Balance -2360 552 620 225 Meds/Results Medications: Active Medications Generic Name Dose Route Start Last Admin Trade Name Ashishq PRN Reason Stop Dose Admin Acetaminophen 650 mg 09/23/22 06:28 10/05/22 03:40 Acetaminophen 325 Mg Tablet PO 650 mg Q4H PRN Administration Mild Pain (1-3) or Fever Amlodipine Besylate 5 mg 09/27/22 13:35 10/06/22 08:05 Amlodipine Besylate 5 Mg Tablet PO 5 mg DAILY ROBERT Administration Apixaban 2.5 mg 09/27/22 21:00 10/07/22 08:45 Apixaban 2.5 Mg Tablet PO 2.5 mg Q12HR ROBERT Administration Benzocaine 1 lozenge 09/27/22 21:22 10/07/22 08:45 Benzocai
--- NOTE | 2022-10-07 14:37 | PM.PNPUL ---
Progress Note: A&P Assessment and Plan (1) Microscopic polyangiitis: Code(s): M31.7 - Microscopic polyangiitis Status: Acute (2) Respiratory failure: Code(s): J96.90 - Respiratory failure, unspecified, unspecified whether with hypoxia or hypercapnia Status: Acute Assessment and Plan: Respiratory status improved following daily hemodialysis with fluid removal. New hemodialysis planned for today. On physical exam he no longer has lower extremity edema. Currently on room air. chest exam showing rare crackles at the bases as before. Patient found to have a significant oxyhemoglobin desaturation on room air.. Plan: Patient will be started on supplemental oxygen 3 liters/minute at night. Will repeat apnea link study on supplemental oxygen. (3) ESRD (end stage renal disease) on dialysis: Code(s): N18.6 - End stage renal disease; Z99.2 - Dependence on renal dialysis Status: Acute (4) Immunosuppression: Code(s): D84.9 - Immunodeficiency, unspecified Status: Acute (5) Leukopenia: Code(s): D72.819 - Decreased white blood cell count, unspecified Status: Acute (6) Atrial fibrillation and flutter: Code(s): I48.91 - Unspecified atrial fibrillation; I48.92 - Unspecified atrial flutter Status: Acute (7) Biventricular CHF (congestive heart failure): Code(s): I50.82 - Biventricular heart failure Status: Acute (8) Anemia: Code(s): D64.9 - Anemia, unspecified Status: Acute Subjective Date/time seen: 10/07/22 14:37 Interval history: Patient has no new respiratory symptoms. Remains on room air. Underwent ApneaLink study last night. Complains of some sore throat as before. Review of Systems Review of Systems: No specific complaints All systems reviewed & are unremarkable except as noted in HPI and below (HPI and below) Exam Narrative: GENERAL APPEARANCE: Well developed, well nourished, alert and cooperative, and appears to be in no acute distress while breathing R/A SKIN: Inspection of the skin reveals neck petechiae. HEENT: Sclerae anicteric and conjunctivae pink and moist. Extraocular movements were intact and pupils were equal, round, and reactive to light. Dry oral mucosa NECK: Supple. There was no thyroid enlargement, and no tenderness, or masses were felt. CHEST: Normal AP diameter and normal contour without any kyphoscoliosis. LUNGS: Auscultation of the lungs rare crackles at bases posteriorly no wheezing CARDIAC: There was a irregular rate and rhythm without any murmurs. ABDOMEN: Soft and nontender with normal bowel sounds. There was no organomegaly. LYMPH NODES: No lymphadenopathy was appreciated in the neck. EXTREMITIES: No cyanosis, clubbing. No pedal edema NEUROLOGIC: Alert and oriented x 3. Normal affect. Objective Data Vital Signs Vital Signs: Vital Signs - 24 hr 10/06/22 20:51 10/06/22 22:05 10/06/22 20:00 Temperature 35.8 C L Pulse Rate 108 H 101 H Respiratory Rate 16 Blood Pressure 115/96 H Pulse Oximetry 98 95 Oxygen Delivery Room Air 10/06/22 20:50 10/07/22 00:00 10/07/22 04:00 Temperature 35.8 C L 35.7 C L Pulse Rate 108 H 90 92 Respiratory Rate 16 16 16 Blood Pressure 112/97 H 109/93 H Pulse Oximetry 98 97 94 Oxygen Delivery Room Air 10/07/22 08:00 10/07/22 08:40 10/07/22 09:50 Temperature 36.3 C L 36.6 C Pulse Rate 82 83 Respiratory Rate 14 20 Blood Pressure 114/77 100/47 L Pulse Oximetry 94 94 Oxygen Delivery Room Air 10/07/22 09:54 10/07/22 10:00 10/07/22 10:20 Temperature Pulse Rate 86 94 82 Respiratory Rate Blood Pressure 117/90 118/79 105/76 Pulse Oximetry Oxygen Delivery 10/07/22 10:40 10/07/22 11:00 10/07/22 11:20 Temperature Pulse Rate 74 99 74 Respiratory Rate Blood Pressure 98/71 L 100/75 96/76 L Pulse Oximetry Oxygen Delivery 10/07/22 12:00 Temperature 36.1 C L Pulse Rate 100 Respirat
[2022-10-07] MEDS: METOPROLOL TARTRATE 50 MG TAB PO ×2 (14:43→19:46)
[2022-10-07] MEDS: amLODIPine BESYLATE 5 MG TABLET PO (14:43)
[2022-10-07] MEDS: FAMOTIDINE 20 MG TABLET PO ×2 (14:44→19:35)
[2022-10-07] MEDS: FUROSEMIDE 40 MG TABLET PO (14:44)
--- NOTE | 2022-10-07 14:59 | PCPTNOTE ---
PT attempted to see patient 2 x this afternoon. Patient in dialysis on first attempt and patient declined second attempt stating he just returned to his room and is eating. PT will continue PT per plan of care.
[2022-10-08] VITALS (7 sets, daily range): BP systolic 86–123; BP diastolic 68–95; PULSE 82–96; RESP 14–20; TEMP 35.7–36.4; O2SAT 94–100
[2022-10-08 07:17] LABS: Hematocrit 32.8 % (42.0-52.0); Hemoglobin 10.5 g/dL (14.0-18.0); Mean Corpuscular Hemoglobin 34.4 pg (26-34); Mean Corpuscular Volume 107.5 fl (80-100); Mean Platelet Volume 10.5 fl (7.4-10.4); Platelet Count Result 140 k/mm3 (150-375); Red Blood Count 3.05 M/mm3 (4.6-6.20); White Blood Count 5.9 K/mm3 (4.5-10.0)
[2022-10-08 07:29] LABS: Albumin Level 3.6 g/dL (3.5-5.1); Anion Gap 8 mmol/L (8-16); Blood Urea Nitrogen 73 mg/dL (9-20); Calcium 8.2 mg/dL (8.4-10.2); Carbon Dioxide 28 mmol/L (22-30); Chloride 101 mmol/L (98-107); Estimated CRCL calculation 11 ml/min; Estimated Glomerular Filt Rate 8; Glucose 92 mg/dL (65-110); Magnesium 2.2 mg/dL (1.6-2.3); Phosphorus 9.4 mg/dL (2.5-4.5); Potassium 5.5 mmol/L (3.4-5.0); Sodium 137 mmol/L (137-145)
[2022-10-08] MEDS: PANTOPRAZOLE 40 MG TABLET PO (08:43)
[2022-10-08] MEDS: NYSTATIN 100,000 UNITS/ML SUSP 5 ML ORAL.SUSP PO ×3 (08:43→16:55)
[2022-10-08] MEDS: FAMOTIDINE 20 MG TABLET PO (08:43)
[2022-10-08] MEDS: APIXABAN 2.5 MG TABLET PO (08:43)
[2022-10-08] MEDS: BENZOCAINE/MENTHOL (*BKC) 18 EA LOZENGE 1 LOZENGE PO (08:43)
[2022-10-08] MEDS: FUROSEMIDE 40 MG TABLET PO (08:44)
[2022-10-08] MEDS: CALCIUM ACETATE 667 MG TABLET 1334 MG PO ×3 (08:44→16:55)
[2022-10-08] MEDS: predniSONE 10 MG TABLET PO ×2 (08:45→16:55)
[2022-10-08] MEDS: FLUTICASONE PROPIONATE 0.05% NA SPR 16 GM BTL (*BKC) 1 SPRAY NASAL (08:49)
[2022-10-08] MEDS: METOPROLOL TARTRATE 50 MG TAB PO (08:57)
--- NOTE | 2022-10-08 09:06 | PC.NURSE ---
per , held amlodipine because manual b/p was 105/70 at 0900. per 50mg metoprolol was given because of heart rate 94.
--- NOTE | 2022-10-08 09:13 | PM.PNPUL ---
Progress Note: A&P Assessment and Plan (1) Microscopic polyangiitis: Code(s): M31.7 - Microscopic polyangiitis Status: Acute (2) Respiratory failure: Code(s): J96.90 - Respiratory failure, unspecified, unspecified whether with hypoxia or hypercapnia Status: Acute Assessment and Plan: Respiratory status improved following daily hemodialysis with fluid removal. No hemodialysis planned for today. On physical exam he no longer has lower extremity edema. Currently on room air. chest exam showing rare crackles at the bases as before. Patient found to have a significant nocturnal oxyhemoglobin desaturation on room air. Awaiting repeat ApneaLink on supplemental oxygen. Plan: Patient will be started on supplemental oxygen 3 liters/minute at night. Will repeat apnea link study on supplemental oxygen. (3) ESRD (end stage renal disease) on dialysis: Code(s): N18.6 - End stage renal disease; Z99.2 - Dependence on renal dialysis Status: Acute (4) Immunosuppression: Code(s): D84.9 - Immunodeficiency, unspecified Status: Acute (5) Leukopenia: Code(s): D72.819 - Decreased white blood cell count, unspecified Status: Acute (6) Atrial fibrillation and flutter: Code(s): I48.91 - Unspecified atrial fibrillation; I48.92 - Unspecified atrial flutter Status: Acute (7) Biventricular CHF (congestive heart failure): Code(s): I50.82 - Biventricular heart failure Status: Acute (8) Anemia: Code(s): D64.9 - Anemia, unspecified Status: Acute Subjective Date/time seen: 10/08/22 09:13 Interval history: Patient has no new respiratory symptoms. Remaining on room air. No dialysis scheduled for today. Has not had repeat ApneaLink on oxygen. Review of Systems Review of Systems: No specific complaints All systems reviewed & are unremarkable except as noted in HPI and below (HPI and below) Exam Narrative: GENERAL APPEARANCE: Well developed, well nourished, alert and cooperative, and appears to be in no acute distress while breathing R/A SKIN: Inspection of the skin reveals neck petechiae. HEENT: Sclerae anicteric and conjunctivae pink and moist. Extraocular movements were intact and pupils were equal, round, and reactive to light. Dry oral mucosa NECK: Supple. There was no thyroid enlargement, and no tenderness, or masses were felt. CHEST: Normal AP diameter and normal contour without any kyphoscoliosis. LUNGS: Auscultation of the lungs rare crackles at bases posteriorly no wheezing CARDIAC: There was a irregular rate and rhythm without any murmurs. ABDOMEN: Soft and nontender with normal bowel sounds. There was no organomegaly. LYMPH NODES: No lymphadenopathy was appreciated in the neck. EXTREMITIES: No cyanosis, clubbing. No pedal edema NEUROLOGIC: Alert and oriented x 3. Normal affect. Objective Data Vital Signs Vital Signs: Vital Signs - 24 hr 10/07/22 09:50 10/07/22 09:54 10/07/22 10:00 Temperature 36.6 C Pulse Rate 83 86 94 Respiratory Rate 20 Blood Pressure 100/47 L 117/90 118/79 Pulse Oximetry 94 Oxygen Delivery Oxygen Flow Rate Fraction of Inspired Oxygen 10/07/22 10:20 10/07/22 10:40 10/07/22 11:00 Temperature Pulse Rate 82 74 99 Respiratory Rate Blood Pressure 105/76 98/71 L 100/75 Pulse Oximetry Oxygen Delivery Oxygen Flow Rate Fraction of Inspired Oxygen 10/07/22 11:20 10/07/22 12:00 10/07/22 14:43 Temperature 36.1 C L Pulse Rate 74 100 100 Respiratory Rate 14 Blood Pressure 96/76 L 117/81 Pulse Oximetry 96 Oxygen Delivery Oxygen Flow Rate Fraction of Inspired Oxygen 10/07/22 11:40 10/07/22 12:00 10/07/22 12:20 Temperature Pulse Rate 83 103 H 105 H Respiratory Rate Blood Pressure 95/73 L 107/80 102/78 Pulse Oximetry Oxygen Delivery Oxygen Flow Rate Fraction of Inspired Oxygen 10/07/22 12:40 10/07/22 13:00
--- NOTE | 2022-10-08 10:11 | PM.PNNEP ---
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 hold cytoxan due to leukopenia and thrombocytopenia, but continue steroids will likely plan weaning off steroids as well follow trend of repeat labs and UOP (to assess for potential renal recovery) (2) Chronic kidney disease, stage IV (severe): Code(s): N18.4 - Chronic kidney disease, stage 4 (severe) Status: Chronic Assessment and Plan: since 2019, creatinine has been running ~ 1.4 - 1.7mg/dl however, in July 2021, it increased to 1.93mg/dl then, in March 2022, it was 2.32mg/dl on discharge in early May 2022, it was 3.3mg/dl outpatient labs on 05/28/22, creatinine up to 4.4mg/dl probably has some underlying chronic kidney disease due to HTN, vascular disease/CHF, and age not clear when microscopic polyangiitis started ... (3) Acute hypoxemic respiratory failure: Code(s): J96.01 - Acute respiratory failure with hypoxia Status: Acute Assessment and Plan: as noted on admission CXR and CT of chest results noted attempting to push fluid removal with dialysis DUF (dry ultrafiltration) intermittently for further fluid removal on antibiotics for possible pneumonia Pulmonary recommendations noted (4) Leukopenia: Code(s): D72.819 - Decreased white blood cell count, unspecified Status: Acute Assessment and Plan: improving likely secondary to cytoxan hold this for now follow WBC (5) Fall: Code(s): W19.XXXA - Unspecified fall, initial encounter Status: Acute Assessment and Plan: possibly due to previous diarrhea (which has resolved) r/o infection given immunosuppression -- culture negative to date PT/OT as tolerated (6) Hypertension: Code(s): I10 - Essential (primary) hypertension Status: Chronic Assessment and Plan: reasonable control follow trend of hemodynamics (7) Atrial fibrillation: Code(s): I48.91 - Unspecified atrial fibrillation Status: Acute Assessment and Plan: rate control strategy on metoprolol on anticoagulation (8) Anemia: Code(s): D64.9 - Anemia, unspecified Status: Chronic Assessment and Plan: due to RAMIRO, CKD, and dialysis dependence Epogen with HD follow H/H Not opposed to discharge from renal perspective if otherwise medically stable and SNF/rehab arrangements finalized in conjunction with dialysis treatment times/schedule. Will continue to follow. Subjective Date/time seen: 10/08/22 10:11 Interval history: Follow-up for RAMIRO on CKD requiring renal replacement therapy/hemodialysis. Tolerated hemodialysis treatment yesterday but fluid removal was somewhat limited by his hemodynamics; respiratory status seems better overall and has been weaned off supplemental oxygen; no other acute issues/evetns overnight or earlier this morning. Exam Narrative: General: WD/WN elderly male in NAD Heart: normal S1 and S2; irregular irregular; no rub Lungs: coarse breath sounds Abdomen: soft, nontender, nondistended, positive bowel sounds Extremities: no cyanosis or clubbing; no edema Skin: no rash Objective Data Vital Signs Vital Signs: Vital Signs - 24 hr 10/07/22
--- NOTE | 2022-10-08 10:11 | P.PNNP_ITS ---
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 * hold cytoxan due to leukopenia and thrombocytopenia, but continue steroids * will likely plan weaning off steroids as well * follow trend of repeat labs and UOP (to assess for potential renal recovery) (2) Chronic kidney disease, stage IV (severe): Code(s): N18.4 - Chronic kidney disease, stage 4 (severe) Status: Chronic Assessment and Plan: * since 2019, creatinine has been running ~ 1.4 - 1.7mg/dl * however, in July 2021, it increased to 1.93mg/dl * then, in March 2022, it was 2.32mg/dl * on discharge in early May 2022, it was 3.3mg/dl * outpatient labs on 05/28/22, creatinine up to 4.4mg/dl * probably has some underlying chronic kidney disease due to HTN, vascular disease/CHF, and age * not clear when microscopic polyangiitis started ... (3) Acute hypoxemic respiratory failure: Code(s): J96.01 - Acute respiratory failure with hypoxia Status: Acute Assessment and Plan: * as noted on admission * CXR and CT of chest results noted * attempting to push fluid removal with dialysis * DUF (dry ultrafiltration) intermittently for further fluid removal * on antibiotics for possible pneumonia * Pulmonary recommendations noted (4) Leukopenia: Code(s): D72.819 - Decreased white blood cell count, unspecified Status: Acute Assessment and Plan: * improving * likely secondary to cytoxan * hold this for now * follow WBC (5) Fall: Code(s): W19.XXXA - Unspecified fall, initial encounter Status: Acute Assessment and Plan: * possibly due to previous diarrhea (which has resolved) * r/o infection given immunosuppression -- culture negative to date * PT/OT as tolerated (6) Hypertension: Code(s): I10 - Essential (primary) hypertension Status: Chronic Assessment and Plan: * reasonable control * follow trend of hemodynamics (7) Atrial fibrillation: Code(s): I48.91 - Unspecified atrial fibrillation Status: Acute Assessment and Plan: * rate control strategy * on metoprolol * on anticoagulation (8) Anemia: Code(s): D64.9 - Anemia, unspecified Status: Chronic Assessment and Plan: * due to RAMIRO, CKD, and dialysis dependence * Epogen with HD * follow H/H Not opposed to discharge from renal perspective if otherwise medically stable and SNF/rehab arrangements finalized in conjunction with dialysis treatment times/schedule. Will continue to follow. Subjective Date/time seen: 10/08/22 10:11 Interval history: Follow-up for RAMIRO on CKD requiring renal replacement therapy/hemodialysis. Tolerated hemodialysis treatment yesterday but fluid removal was somewhat limited by his hemodynamics; respiratory st
--- NOTE | 2022-10-08 10:15 | P.CDI_ITS ---
CDI Query Clarification Request Documented history of CHF. CHF noted in the assessment and plan. Furosemide listed as a home medication. Patient receiving Furosemide. Pulmonary edema noted on the chest xray on 09/23/22 & 10/04/22. Please specify type and acuity of heart failure if known. * Acute * Chronic * Acute on Chronic * Unknown * Systolic * Diastolic * Combined Systolic and Diastolic * Unknown <Carolyn Moya RN - Last Filed: 10/08/22 10:18> Clarified Diagnosis Clarified Diagnosis: Cardiac echo showed left ventricular diastolic dysfunction most likely patient acute on chronic diastolic congestive heart failure <Kirby Nathan MD - Last Filed: 10/13/22 18:45>
--- NOTE | 2022-10-08 11:31 | WPDPN ---
Progress Note: A&P Assessment and Plan (1) Fall: Code(s): W19.XXXA - Unspecified fall, initial encounter Status: Acute Assessment and Plan: Placement likely. 10/08/2022 interval history: Today patient is sitting in the chair states feeling much, patient is seen by pulmonogist and ordered apnea link for his suspected sleep apnea apparently it was not done properly so will have another today, patient will have scheduled dialysis, patient is waiting for the placement will continue to monitor (2) ESRD (end stage renal disease) on dialysis: Code(s): N18.6 - End stage renal disease; Z99.2 - Dependence on renal dialysis Status: Acute Assessment and Plan: Hemodialysis as needed. Monitor electrolytes. (3) Leukopenia: Code(s): D72.819 - Decreased white blood cell count, unspecified Status: Acute Assessment and Plan: Secondary to immunosuppressive medications. Managed by Nephrology. ? Switch Cytoxan to another agent. Question change immunosuppressive regimen. Continue low-dose prednisone. Can likely be on a lower dose as well. High risk for superinfection. (4) Hypertension: Code(s): I10 - Essential (primary) hypertension Status: Chronic Assessment and Plan: Monitor blood pressure. (5) Diarrhea: Qualifiers: Diarrhea type: unspecified type Qualified Code(s): R19.7 - Diarrhea, unspecified Code(s): R19.7 - Diarrhea, unspecified Status: Acute Assessment and Plan: Resolved Subjective Date/time seen: 10/08/22 11:31 Interval history: 10/08/2022 interval history: Today patient is sitting in the chair states feeling much, patient is seen by pulmonogist and ordered apnea link for his suspected sleep apnea apparently it was not done properly so will have another today, patient will have scheduled dialysis, patient is waiting for the placement will continue to monitor Review of Systems Review of Systems: All systems reviewed & are unremarkable except as noted in HPI and below (HPI and below) Exam Narrative: Morbidly obese Patient is comfortable, NAD HEENT: eyes are clear and none icteric LUNGS: Normal respiratory effort ABD: Distended Lower no edema SKIN: nonjaundiced Neuro: grossly intact. Objective Data Vital Signs Vital Signs: Vital Signs - 24 hr 10/07/22 12:00 10/07/22 14:43 10/07/22 11:40 Temperature 97 F L Pulse Rate 100 100 83 Respiratory Rate 14 Blood Pressure 117/81 95/73 L Pulse Oximetry 96 Oxygen Delivery Oxygen Flow Rate Fraction of Inspired Oxygen 10/07/22 12:00 10/07/22 12:20 10/07/22 12:40 Temperature Pulse Rate 103 H 105 H 91 Respiratory Rate Blood Pressure 107/80 102/78 110/82 Pulse Oximetry Oxygen Delivery Oxygen Flow Rate Fraction of Inspired Oxygen 10/07/22 13:00 10/07/22 13:20 10/07/22 13:29 Temperature Pulse Rate 100 91 101 H Respiratory Rate Blood Pressure 117/83 116/86 139/97 H Pulse Oximetry Oxygen Delivery Oxygen Flow Rate Fraction of Inspired Oxygen 10/07/22 13:37 10/07/22 16:00 10/07/22 19:46 Temperature 97.9 F 97.5 F L Pulse Rate 94 97 135 H Respiratory Rate 20 14 Blood Pressure 133/94 H 90/72 L Pulse Oximetry 93 95 Oxygen Delivery Oxygen Flow Rate Fraction of Inspired Oxygen 10/07/22 20:00 10/07/22 20:00 10/08/22 00:00 Temperature 96.2 F L 96.3 F L Pulse Rate 96 96 90 Respiratory Rate 16 16 14 Blood Pressure 98/75 L 123/95 H Pulse Oximetry 96 96 100 Oxygen Delivery Room Air Oxygen Flow Rate Fraction of Inspired Oxygen 21 10/07/22 22:40 10/08/22 04:00 10/08/22 07:56 Temperature 97.0 F L 97.0 F L Pulse Rate 95 94 Respiratory Rate 14 20 Blood Pressure 105/95 H 89/78 L Pulse Oximetry 96 94 96 Oxygen Delivery Nasal Cannula Oxygen Flow Rate 3 Fraction of Inspired Oxygen 10/08/22 08:57 10/08/22 09:00 10/08/22 08:4
--- NOTE | 2022-10-08 13:37 | PM.DS ---
DS: Admitting Diagnosis Discharge Date 10/08/2022 Admitting Diagnosis Fall and weakness DS: Discharge Diagnosis Discharge Diagnosis (1) Fall: Code(s): W19.XXXA - Unspecified fall, initial encounter Status: Acute Assessment and Plan: Placement likely. 10/08/2022 interval history: Today patient is sitting in the chair states feeling much, patient is seen by pulmonogist and ordered apnea link for his suspected sleep apnea apparently it was not done properly so will have another today, patient will have scheduled dialysis, patient is waiting for the placement will continue to monitor (2) ESRD (end stage renal disease) on dialysis: Code(s): N18.6 - End stage renal disease; Z99.2 - Dependence on renal dialysis Status: Acute Assessment and Plan: Hemodialysis as needed. Monitor electrolytes. (3) Leukopenia: Code(s): D72.819 - Decreased white blood cell count, unspecified Status: Acute Assessment and Plan: Secondary to immunosuppressive medications. Managed by Nephrology. ? Switch Cytoxan to another agent. Question change immunosuppressive regimen. Continue low-dose prednisone. Can likely be on a lower dose as well. High risk for superinfection. (4) Hypertension: Code(s): I10 - Essential (primary) hypertension Status: Chronic Assessment and Plan: Monitor blood pressure. (5) Diarrhea: Qualifiers: Diarrhea type: unspecified type Qualified Code(s): R19.7 - Diarrhea, unspecified Code(s): R19.7 - Diarrhea, unspecified Status: Acute Assessment and Plan: Resolved DS: Summary Hospital Course Reason for hospitalization: Fall, weakness Narrative: 82-year-old male with a past medical history of ESRD on dialysis who presented to the ER with complaints of fall.? Patient states he woke up this morning around 3:00 a.m. and got up from the bed and walk for 5 steps and fell down because his legs gave up and he felt really weak.? There was no dizziness and no loss of consciousness.? He scraped his right elbow but no other trauma.? Patient states he was having diarrhea off and on for last 2-3 weeks which has now resolved.? He also stated that he has been started on some chemotherapy by Nephrology in May this year for his chronic kidney disease.? In ER he was found to be leukopenic but otherwise vitals are stable and labs are normal Hospital Course: Today patient is sitting in the chair states feeling much, patient is seen by pulmonogist and ordered apnea link for his suspected sleep apnea apparently it was not done properly so will have another today, patient will have scheduled dialysis, ? patient is waiting for the placement will continue to monitor, Patient seen by pulmonology patient is now clinically his baseline can be discharged, patient is seen by wall taper does not suspect patient has a autoimmune nephritis instructed to stop cyclophosphamide and will discharge on tapering dose of prednisone, and will have a scheduled dialysis. Time Spent with Patient Time attestation: Total time spent providing and/or coordinating discharge services: Exam Narrative: Morbidly obese Patient is comfortable, NAD HEENT: eyes are clear and none icteric LUNGS: Normal respiratory effort ABD: Distended Lower no edema SKIN: nonjaundiced Neuro: grossly intact. DS: Data Data Completed and Pending Labs on day of discharge: Labs from last 24 hours 10/08/22 07:02 WBC 5.9 RBC 3.05 L Hgb 10.5 L Hct 32.8 L MCV 107.5 H MCH 34.4 H MCHC 32.0 RDW 17.0 H Plt Count 140 L MPV 10.5 H Sodium 137 Potassium 5.5 H Chloride 101 Carbon Dioxide 28 Anion Gap 8 BUN 73 H D Creatinine 6.70 H Estim Creat Clear Calc 11 Estimated GFR 8 L Glucose 92 Calcium 8.2 L Phosphorus 9.4 H Magnesium 2.2 Albumin 3.6 Discharge Plan Discharge Attending physician on discharge: Kirby Nathan
[2022-10-08 15:25] LABS: EDCOVIDSCREEN Negative (Negative)
--- NOTE | 2022-10-08 17:32 | PC.NURSE ---
[facility] called to clarify prednisone dose. Dr. Nathan notified and he states that he wants a taper dose of : 10 mg bid x7 days, then 5 mg bid for 7 days, then daily for 7 days. [facility] notified and verbalized understanding of order.
== END 2022-10-08 17:50 | DRG 673 ==
LOC: ANHED 06:27 → ANHIMU 08:54 → ANH3MEDSUR 09-27 07:04 → ANHIMU 10-01 06:25 → ANH3MEDSUR 10-08 13:14 → ANHIMU 10-12 10:17
PROVIDERS: Family Medicine; Hospitalist; Internal Medicine; Internal Medicine Nephrology; Internal Medicine Pulmonary Disease; Nurse Practitioner; Surgery; Admitting Provider Internal Medicine; Emergency Provider Emergency Medicine; PCP Family Medicine; Visit Provider Family Medicine
PROC: 0JH63XZ Insertion of Tunneled Vascular Access Device into Chest Subcutaneous Tissue and Fascia, Percutaneous Approach (ICD-10-PCS; CPT 36908; principal; 2022-09-27 10:45)
DX: N17.8 Other acute kidney failure (principal); J96.01 Acute respiratory failure with hypoxia; I13.2 Hypertensive heart and chronic kidney disease with heart failure and with stage 5 chronic kidney disease, or end stage renal disease; T82.42XA Displacement of vascular dialysis catheter, initial encounter; M31.7 Microscopic polyangiitis; I50.32 Chronic diastolic (congestive) heart failure; N18.6 End stage renal disease; N05.8 Unspecified nephritic syndrome with other morphologic changes; W19.XXXA Unspecified fall, initial encounter; I35.0 Nonrheumatic aortic (valve) stenosis; Z20.822 Contact with and (suspected) exposure to COVID-19; E78.5 Hyperlipidemia, unspecified; M19.90 Unspecified osteoarthritis, unspecified site; M06.9 Rheumatoid arthritis, unspecified; I48.91 Unspecified atrial fibrillation; D63.1 Anemia in chronic kidney disease; R19.7 Diarrhea, unspecified; D70.1 Agranulocytosis secondary to cancer chemotherapy; T45.1X5A Adverse effect of antineoplastic and immunosuppressive drugs, initial encounter; E86.0 Dehydration; Z96.659 Presence of unspecified artificial knee joint; E66.01 Morbid (severe) obesity due to excess calories; Z68.36 Body mass index [BMI] 36.0-36.9, adult; Z86.718 Personal history of other venous thrombosis and embolism; Z87.891 Personal history of nicotine dependence
CPT/HCPCS: 36415; 36600; 70450; 70490; 71045; 71250; 76000; 77001; 80048; 80053; 80069; 80202; 81001; 82565; 82805; 82948; 83605; 83690; 83735; 84484; 85025; 85027; 85610; 85730; 86140; 86706; 86707; 87040; 87077; 87081; 87086; 87186; 87340; 87426; 87637; 87651; 90471; 90715; 92611; 93005; 94762; 96365; 96366; 96368; 96375; 96376; 97110; 97162; 97164; 97165; 97168; 97530; 97535; 99285; A9270; C1750; C1769; C9113; C9803; G0257; G0378; J0456; J0692; J1170; J1644; J1940; J2175; J2704; J2920; J3370; J7030; J7040; J7512; J8530; P9047; Q5105

== ENCOUNTER 2022-10-31 17:23 | Observation (INO) | payer MEDICARE, SELFPAY ==
--- NOTE | ~2022-10-31 | XR_ITS ---
XR knee LT 3V 10/31/2022 19:35 Indication: Knee pain. Procedure: 4 views left knee Comparison: 11/27/2021 Findings: There is severe tricompartment osteoarthritis of the left knee. There is a moderate-large j oint effusion. No acute fracture or traumatic malalignment. No foreign bodies. Impression: 1: Severe tricompartment osteoarthritis of the left knee. 2: Moderate-large joint effusion. Reviewed, dictated and finalized at location A. Impression: 1: Severe tricompartment osteoarthritis of the left knee. 2: Moderate-large joint effusion.
--- NOTE | ~2022-10-31 | XR_ITS ---
XR chest 2V 10/31/2022 18:04 Indication: Weakness. Procedure: 2 view chest Comparison: Comparison to multiple prior studies sequentially, with oldest reviewed study dated 10/01. Findings: Cardiomegaly. Shallow inspiration. Central venous catheter tip in the brachiocephalic vein. Mild interstitial edema. No pneumothorax. No significant effusion. There is an embolization wire in the right lower thorax. Impression: 1: Cardiomegaly with mild interstitial edema. Reviewed, dictated and finalized at location A. Impression: 1: Cardiomegaly with mild interstitial edema.
--- NOTE | ~2022-10-31 | XR_ITS ---
XR knee RT 3V 10/31/2022 19:35 Indication: Knee pain. Procedure: 3 views right knee Comparison: 11/27/2021 Findings: There is a right total knee arthroplasty. Prosthesis well seated. Small joint effusion unch anged. No acute fracture or traumatic malalignment. There are atherosclerotic changes. Impression: 1: No acute fracture. Reviewed, dictated and finalized at location A. Impression: 1: No acute fracture.
[2022-10-31 17:25] VITALS: BP 76/58; PULSE 105; RESP 20; TEMP 36.4; O2SAT 96
--- NOTE | 2022-10-31 17:51 | ECG_ITS ---
Measurements Intervals [place] Rate: 94 P: GA: 0 QRS: -17 QRSD: 96 T: 21 QT: 375 QTc: 470 Interpretive Statements ATRIAL FIBRILLATION ABNORMAL RHYTHM ECG COMPARED TO ECG 09/30/2022 13:38:27 HEART RATE RESPONSE TO ATRIAL FIB IS MORE CONTROLLED NOW Electronically Signed On 11-01-2022 15:43:23 CDT by Ricky Nguyen M.D.
--- NOTE | 2022-10-31 17:58 | ED.GENADULT ---
HPI - General Adult General Chief complaint: Recheck/Abnormal Lab/Rx Stated complaint: GLF Time Seen by Provider: 10/31/22 17:28 History of Present Illness HPI narrative: Patient is an 82-year-old male who presents to the ER with weakness. Patient was discharged from his rehabilitation facility today. At 10 AM he is found to be hypotensive and was given midodrine 5 mg which is a as needed medication for blood pressures below 100. He was then discharged. At home it is on the toilet was too weak to stand back up. Patient is a dialysis patient gets dialysis Tuesday. She has not missed recent dialysis appointment. Here patient's blood pressure found to be in the 70s systolic. He has no chest pain or chest pressure. Denies any dizziness. He is keenly alert. Denies any dark black stools. Does report 1 episode of diarrhea. Patient has some skin tears to his arms. Related Data Home Medications Medication Instructions Recorded Confirmed metoprolol tartrate 50 mg tablet 50 mg PO Q12H 07/16/22 09/24/22 amlodipine 5 mg tablet 5 mg PO DAILY 09/24/22 09/24/22 furosemide 40 mg tablet 40 mg PO DAILY 09/24/22 09/24/22 pantoprazole 40 mg tablet,delayed 40 mg PO QAM 09/24/22 09/24/22 release Allergies Allergy/AdvReac Type Severity Reaction Status Date / Time camphor [From Biofreeze] Allergy Intermediate Hives Verified 10/31/22 18:14 menthol [From Biofreeze] Allergy Intermediate Hives Verified 10/31/22 18:14 Review of Systems Review of Systems: All systems reviewed & are unremarkable except as noted in HPI and below Constitutional: Constitutional: Denies chills, Reports fatigue, Denies fever(s) and Reports weakness ENT: Denies nasal congestion and Denies sore throat Cardiovascular: Cardiovascular: Denies chest pain, Denies rapid heart rate and Denies radiating jaw, neck or arm pain Respiratory: Respiratory: Denies cough and Denies dyspnea Gastrointestinal: Gastrointestinal: Denies abdominal pain, Reports diarrhea, Denies nausea and Denies vomiting Integumentary/Breasts: Skin/Breast: Denies erythema and Denies rash Comments: Skin tears to the forearms bilaterally Neurologic: Denies syncope, Denies headache(s) and Denies focal weakness PMFSH Past Medical History Medical History Aortic stenosis, moderate Atrial fibrillation Atrial fibrillation CHF (congestive heart failure) DJD (degenerative joint disease) Dyspnea due to congestive heart failure Elevated lipids History of DVT (deep vein thrombosis) HLD (hyperlipidemia) HTN (hypertension) Hypertension Insomnia Insomnia Osteoarthritis Rheumatoid arthritis Surgical History Surgical History History of shoulder surgery History of tonsillectomy and adenoidectomy History of total knee replacement History of total knee replacement Status post right rotator cuff repair Family History Family History Father Heart failure Father Family history of liver disease Diabetes mellitus Family history of kidney disease Mother Family history of diabetes mellitus in first degree relative Diabetes mellitus Family history of renal failure Other Family history of gout Hypertension Social History Social History Social History: the patient has been for many years and lives home alone. 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 He has 2 children code status full code Smoking packs per day: 0.5 Smoking cigarettes per day: 10.0 Years smoked: 15 Smoking pack-years: 7.50 Smoking status: Former smoker Tobacco type: cigarettes Second hand tobacco smoke exposure: Yes Smoking end date: 05/16/17 Alcohol intake: never Drinks per week: 0 Alcohol use details: Occasionally Substance use: never Substan
[2022-10-31 18:11] VITALS: BP 86/67; PULSE 92; O2SAT 96
[2022-10-31] MEDS: MIDODRINE HCL 2.5 MG TABLET 5 MG PO (18:14)
[2022-10-31 18:25] LABS: Basophils Percent Auto 0.7 % (0.2-1.2); Eosinophils Absolute Auto 0.1 K/mm3 (0-0.3); Eosinophils Percent Auto 1.7 % (0-4.4); Hematocrit 35.2 % (42.0-52.0); Immature Granulocyte Absolute 0.08 K/mm3 (0.00-0.031); Lymphocytes Percent Auto 19.6 % (18.3-44.2); Mean Corpuscular HGB Conc 31.3 g/dl (32-36); Mean Corpuscular Hemoglobin 34.8 pg (26-34); Mean Corpuscular Volume 111.4 fl (80-100); Mean Platelet Volume 11.1 fl (7.4-10.4); Monocytes Absolute Auto 0.6 K/mm3 (0.1-0.6); Monocytes Percent Auto 14.9 % (2.6-8.5); Neutrophils Absolute Auto 2.5 K/mm3 (1.3-6.7); Neutrophils Percent Auto 61.1 % (45.5-73.1); Platelet Count Result 116 k/mm3 (150-375); Red Blood Count 3.16 M/mm3 (4.6-6.20); Red Cell Distribution Width 14.9 % (11.5-14.5); White Blood Count 4.1 K/mm3 (4.5-10.0)
[2022-10-31 18:49] LABS: Alanine Aminotransferase 24 U/L (6-50); Albumin Level 3.5 g/dL (3.5-5.1); Alkaline Phosphatase 52 U/L (38-126); Anion Gap 11 mmol/L (8-16); Aspartate Amino Transferase 37 U/L (17-59); Bilirubin,Total 0.6 mg/dL (0.2-1.3); Blood Urea Nitrogen 33 mg/dL (9-20); Calcium 8.1 mg/dL (8.4-10.2); Carbon Dioxide 25 mmol/L (22-30); Chloride 101 mmol/L (98-107); Estimated CRCL calculation 10 ml/min; Estimated Glomerular Filt Rate 7; Glucose 96 mg/dL (65-110); Potassium 4.6 mmol/L (3.4-5.0); Sodium 137 mmol/L (137-145)
[2022-10-31 18:50] LABS: Platelet Estimate Decreased (Adequate)
[2022-10-31 18:51] LABS: Anisocytosis 1+ (NORMAL); Macrocytosis 1+ (NORMAL); Schistocytes None Seen (NORMAL)
[2022-10-31 19:11] VITALS: BP 96/78; PULSE 90; RESP 21; O2SAT 95
--- NOTE | 2022-10-31 19:46 | PM.IMHP ---
H&P: HPI History of Present Illness Date/Time: 10/31/22 19:46 Chief Complaint: Generalized weakness Narrative: This is an 82-year-old male with past medical history significant for atrial fibrillation, rate controlled anticoagulated, end-stage renal disease on hemodialysis, morbid obesity, degenerative joint disease, hypertension, aortic stenosis, congestive heart failure. Patient comes to the emergency room after he was discharged from rehabilitation center upon arriving to his house actually prior to arriving to his house and when exiting the rehabilitation center had a fall trying to get in the car with a skin tear to his arm eventually was able to get in the car on was able to get home however was not able to get up from the toilet according to patient is very low had to call neighbor to come help him and neighbor called EMS patient was not able to stand on his own due to weakness and bilateral knee pain was brought to the emergency room for further evaluation. In emergency room patient was noted to be very hypotensive he had his dialysis treatment recently like on schedule, patient is on midodrine p.r.n.. Patient states that he was doing fairly well have while at the rehabilitation center denies any fevers, rigors, chills, nausea, vomiting has occasional diarrhea, no shortness of breath, no cough no sputum production his appetite has been good. Preliminary workup was significant for: XR chest 2V 10/31/2022 18:04 Indication: Weakness. Procedure: 2 view chest Comparison: Comparison to multiple prior studies sequentially, with oldest reviewed study dated? 10/01/2022. Findings: Cardiomegaly. Shallow inspiration. Central venous catheter tip in the brachiocephalic vein. Mild interstitial edema. No pneumothorax. No significant effusion. There is an embolization wire in the right lower thorax. Impression: 1: Cardiomegaly with mild interstitial edema. XR knee LT 3V 10/31/2022 19:35 Indication: Knee pain. Procedure: 4 views left knee Comparison: 11/27/2021 Findings: There is severe tricompartment osteoarthritis of the left knee. There is a moderate-large joint effusion. No acute fracture or traumatic malalignment. No foreign bodies. Impression: 1: Severe tricompartment osteoarthritis of the left knee. 2:? Moderate-large joint effusion. XR knee RT 3V 10/31/2022 19:35 Indication: Knee pain. Procedure: 3 views right knee Comparison: 11/27/2021 Findings: There is a right total knee arthroplasty. Prosthesis well seated. Small joint effusion unchanged. No acute fracture or traumatic malalignment. There are atherosclerotic changes. Impression: 1: No acute fracture. EKG Rate 94 DC 0 QRSd 96 QT 375 QTc 470 --[place]-- P QRS -17 T 21 ATRIAL FIBRILLATION ABNORMAL RHYTHM ECG COMPARED TO ECG 09/30/2022 13:38:27 NO SIGNIFICANT CHANGE Review of Systems Review of Systems: weakness Constitutional: Constitutional: Denies chills, Denies fatigue, Denies fever(s), Denies malaise, Denies night sweats and Reports weakness Eyes: Eyes: Denies change in vision ENT: Denies dysphagia and Denies odynophagia Cardiovascular: Cardiovascular: Denies chest pain, Reports leg edema, Denies lightheadedness, Denies radiating jaw, neck or arm pain and Denies palpitations Respiratory: Respiratory: Denies chest congestion, Denies cough and Denies excessive phlegm production Gastrointestinal: Gastrointestinal: Denies abdominal pain, Denies dyspepsia, Denies heartburn, Reports diarrhea, Denies nausea and Denies vomiting Genitourinary: Genitourinary: Denies dysuria Musculoskeletal: Musculoskeletal: Reports deformity, Reports arthralgias, Reports joint swelling (Left knee) and Reports limited range of motion Integumentary/Breasts: Skin/Breast: Denies rash Neurologic: Denies focal weakness and Denies Sensory deficit (Neuro) Psychiatric: Psychiatric: Reports no additional psychiatric complaints and Reports as per HPI Endocrine: Endoc
--- NOTE | 2022-10-31 20:24 | ADMGEN ---
This patient, Arthur Cantor Jr., was admitted to Medical Room 340-01. Patient/family oriented to hospital policies and general routines including ID bracelet, bed and alarms, visiting hours, pain management, procedures, bathroom and other care routines, personal items, smoking policy, room service/diet, and visiting hours. Information on how to activate the Rapid Response Team has been discussed. Patient/Family are encouraged to report perceived risks to care and to ask questions if they do not understand what they are told or what they should do.
[2022-10-31 20:28] VITALS: BMI 36.3
[2022-10-31 21:22] VITALS: BP 96/55; PULSE 72; RESP 20; TEMP 36.6; O2SAT 95
[2022-10-31] MEDS: FLUTICASONE PROPIONATE 0.05% NA SPR 16 GM BTL (*BKC) 1 SPRAY NASAL (21:58)
[2022-10-31] MEDS: FAMOTIDINE 20 MG TABLET PO (21:58)
[2022-10-31] MEDS: HYDROcodone/acetaminophen (*CRX) 5-325 MG TABLET 1 TAB PO (21:58)
[2022-10-31] MEDS: NYSTATIN 100,000 UNITS/ML SUSP 5 ML ORAL.SUSP PO (21:58)
[2022-10-31 21:59] VITALS: PULSE 80
[2022-10-31] MEDS: METOPROLOL TARTRATE 50 MG TAB PO (21:59)
[2022-10-31] MEDS: APIXABAN 2.5 MG TABLET PO (21:59)
[2022-11-01] MEDS: HYDROcodone/acetaminophen (*CRX) 5-325 MG TABLET 1 TAB PO ×2 (05:33→17:32)
[2022-11-01 06:00] VITALS: BP 98/52; PULSE 81; RESP 18; TEMP 36.6; O2SAT 97
[2022-11-01] MEDS: APIXABAN 2.5 MG TABLET PO ×2 (09:50→20:09)
[2022-11-01] MEDS: CALCIUM ACETATE 667 MG TABLET 1334 MG PO ×3 (09:51→17:26)
[2022-11-01] MEDS: FLUTICASONE PROPIONATE 0.05% NA SPR 16 GM BTL (*BKC) 1 SPRAY NASAL ×2 (09:52→20:09)
[2022-11-01] MEDS: PANTOPRAZOLE 40 MG TABLET PO (09:52)
[2022-11-01] MEDS: FAMOTIDINE 20 MG TABLET PO ×2 (09:52→17:26)
[2022-11-01] MEDS: MIDODRINE HCL 2.5 MG TABLET 5 MG PO ×3 (09:52→17:26)
[2022-11-01] MEDS: NYSTATIN 100,000 UNITS/ML SUSP 5 ML ORAL.SUSP PO ×4 (09:52→20:09)
[2022-11-01 09:56] VITALS: BP 74/49
--- NOTE | 2022-11-01 10:15 | P.PNIM_ITS ---
Progress Note: A&P Assessment and Plan (1) Hypotension: Qualifiers: Hypotension type: unspecified hypotension type Qualified Code(s): I95.9 - Hypotension, unspecified Code(s): I95.9 - Hypotension, unspecified Status: Acute Assessment and Plan: * Blood pressure noted to be 74/49 * hold metoprolol start midodrine * trend blood pressure * albumin 25 g x 1 * adjust therapy as indicated (2) Weakness: Code(s): R53.1 - Weakness Status: Acute Assessment and Plan: * Likely secondary to chronic illness * Prolonged hospitalization * Multiple medical problems * PT OT (3) ESRD (end stage renal disease) on dialysis: Code(s): N18.6 - End stage renal disease; Z99.2 - Dependence on renal dialysis Status: Acute Assessment and Plan: * Dialysis as scheduled , , Tues * Nephrology consult * Trend urine output * Trend labs * Currently BUN/Cr 33/7.20 * Stable at this time (4) Atrial fibrillation and flutter: Code(s): I48.91 - Unspecified atrial fibrillation; I48.92 - Unspecified atrial flutter Status: Acute Assessment and Plan: * Rate control and anticoagulated * Continue home Eliquis (5) Glomerulonephritis determined by biopsy: Code(s): N05.9 - Unspecified nephritic syndrome with unspecified morphologic changes Status: Acute Assessment and Plan: * Currently on dialysis (6) DJD (degenerative joint disease): Qualifiers: Osteoarthritis location: knee Osteoarthritis type: post-traumatic Laterality: left Qualified Code(s): 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, left knee Code(s): M19.90 - Unspecified osteoarthritis, unspecified site Status: Acute Assessment and Plan: * A status post a right knee replacement * Left knee with significant osteoarthritis * Tylenol * Trend pain * Ortho consulted (7) Obesity: Qualifiers: Obesity type: due to excess calories Obesity classification: adult class 2 (BMI 35 - 39.9) Serious obesity comorbidity presence: with serious comorbidity Body mass index: BMI 36.0-36.9 Qualified Code(s): E66.01 - Morbid (severe) obesity due to excess calories; Z68.36 - Body mass index [BMI] 36.0- 36.9, adult Code(s): E66.9 - Obesity, unspecified Status: Acute Assessment and Plan: * Calorie restricted diet (8) JUVE (obstructive sleep apnea): Code(s): G47.33 - Obstructive sleep apnea (adult) (pediatric) Status: Acute Assessment and Plan: * CPAP at nighttime (9) Effusion, left knee: Code(s): M25.462 - Effusion, left knee Status: Acute Assessment and Plan: * Ortho consult * Seen on the knee xray * might need an aspiration * Pain medications ordered * PT/OT when appropiate (10) Fall: Qualifiers: Encounter type: initial encounter Qualified Code(s): W19.XXXA - Unspecified fall, initial encounter Code(s): W19.XXXA - Unspecified fall, initial encounter Status: Acute Assessment and Plan: * Fall precautions * PT/OT when appropriate
--- NOTE | 2022-11-01 10:15 | PM.IMPN ---
Progress Note: A&P Assessment and Plan (1) Hypotension: Qualifiers: Hypotension type: unspecified hypotension type Qualified Code(s): I95.9 - Hypotension, unspecified Code(s): I95.9 - Hypotension, unspecified Status: Acute Assessment and Plan: Blood pressure noted to be 74/49 hold metoprolol start midodrine trend blood pressure albumin 25 g x 1 adjust therapy as indicated (2) Weakness: Code(s): R53.1 - Weakness Status: Acute Assessment and Plan: Likely secondary to chronic illness Prolonged hospitalization Multiple medical problems PT OT (3) ESRD (end stage renal disease) on dialysis: Code(s): N18.6 - End stage renal disease; Z99.2 - Dependence on renal dialysis Status: Acute Assessment and Plan: Dialysis as scheduled , , Nephrology consult Trend urine output Trend labs Currently BUN/Cr 33/7.20 Stable at this time (4) Atrial fibrillation and flutter: Code(s): I48.91 - Unspecified atrial fibrillation; I48.92 - Unspecified atrial flutter Status: Acute Assessment and Plan: Rate control and anticoagulated Continue home Eliquis (5) Glomerulonephritis determined by biopsy: Code(s): N05.9 - Unspecified nephritic syndrome with unspecified morphologic changes Status: Acute Assessment and Plan: Currently on dialysis (6) DJD (degenerative joint disease): Qualifiers: Osteoarthritis location: knee Osteoarthritis type: post-traumatic Laterality: left Qualified Code(s): 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, left knee Code(s): M19.90 - Unspecified osteoarthritis, unspecified site Status: Acute Assessment and Plan: A status post a right knee replacement Left knee with significant osteoarthritis Tylenol Trend pain Ortho consulted (7) Obesity: Qualifiers: Obesity type: due to excess calories Obesity classification: adult class 2 (BMI 35 - 39.9) Serious obesity comorbidity presence: with serious comorbidity Body mass index: BMI 36.0-36.9 Qualified Code(s): E66.01 - Morbid (severe) obesity due to excess calories; Z68.36 - Body mass index [BMI] 36.0-36.9, adult Code(s): E66.9 - Obesity, unspecified Status: Acute Assessment and Plan: Calorie restricted diet (8) JUVE (obstructive sleep apnea): Code(s): G47.33 - Obstructive sleep apnea (adult) (pediatric) Status: Acute Assessment and Plan: CPAP at nighttime (9) Effusion, left knee: Code(s): M25.462 - Effusion, left knee Status: Acute Assessment and Plan: Ortho consult Seen on the knee xray might need an aspiration Pain medications ordered PT/OT when appropiate (10) Fall: Qualifiers: Encounter type: initial encounter Qualified Code(s): W19.XXXA - Unspecified fall, initial encounter Code(s): W19.XXXA - Unspecified fall, initial encounter Status: Acute Assessment and Plan: Fall precautions PT/OT when appropriate Time Spent With Patient Time: 48 minutes Time with patient: Greater than 35 minutes Subjective Date/time seen: 11/01/22 1015 Interval history: 11/01/22 1015 patient is lying in bed. Patient stated that he is having some pain in the right knee greater than the left knee however both knees are hurting. He denies any current chest pain, shortness a breath, nausea, vomiting, diarrhea or constipation. He stated that he did try to make it home however he was unable to get off the toilet. He stated since that was the case he feared he would come in for help. Currently left knee is swollen. Pain is controlled. Blood pressure is low at 74 49. Did consult with Nephrology who suggested albu
[2022-11-01] MEDS: ALBUMIN HUMAN 25% 25 GM/100 ML 100 ML IVPB (12:17)
[2022-11-01 13:20] VITALS: BP 102/65; PULSE 78; RESP 16; TEMP 36.2; O2SAT 97
--- NOTE | 2022-11-01 13:32 | PM.CNNEP ---
Assessment and Plan Assessment and plan (1) End stage kidney disease: Code(s): N18.6 - End stage renal disease Status: Acute Assessment and Plan: the patient is on dialysis 3 times a week. He is due tomorrow. His volume status looks okay. His potassium is fine. Will get a treatment tomorrow (2) Weakness: Code(s): R53.1 - Weakness Status: Acute Assessment and Plan: the patient is still recovering from his prior hospitalization. He could have other issues such as adrenal insufficiency or thyroid insufficiency. Will check these out. He has a past history of poly angiitis so will check an ANCA level to make sure that is not started up again. Will check an echocardiogram he does have a history of heart failure as this could make him weak as well. Anemia is not really an issue. His hemoglobin is at the upper end of target for a dialysis patient. He is not on any medication that would do this. His albumin looks good so nutritionally he seems to be doing pretty well. He may just need more physical therapy. (3) Hypotension: Code(s): I95.9 - Hypotension, unspecified Status: Acute Assessment and Plan: Etiology is unclear. Will check a TSH and cortisol level. Echocardiogram will be done as well. It is possible that his aortic valve has gotten worse which could lead to hypotension. He is newly on midodrine. Hopefully this will help. He also is receiving a dose of albumin per FIDENCIO Hodges. I agree with this as well. (4) Microscopic polyangiitis: Code(s): M31.7 - Microscopic polyangiitis Status: Acute Assessment and Plan: Will check an ANCA level (5) Atrial fibrillation: Qualifiers: Atrial fibrillation type: unspecified Qualified Code(s): I48.91 - Unspecified atrial fibrillation Code(s): I48.91 - Unspecified atrial fibrillation Status: Acute Assessment and Plan: heart rate is well controlled (6) CHF (congestive heart failure): Code(s): I50.9 - Heart failure, unspecified Status: Acute Assessment and Plan: echo is ordered (7) HTN (hypertension): Code(s): I10 - Essential (primary) hypertension Status: Chronic Assessment and Plan: this is not an issue. (8) Anemia: Code(s): D64.9 - Anemia, unspecified Status: Chronic Assessment and Plan: Hemoglobin at the upper limits of target for a dialysis patient (9) Renal osteodystrophy: Code(s): N25.0 - Renal osteodystrophy Status: Acute Assessment and Plan: will check a phosphorus level in the morning History of Present Illness Reason for Consult Consult date: 11/01/22 Chief Complaint Chief complaint: Hypotension, Weakness History of Present Illness Narrative: Arthur is a very pleasant 82-year-old gentleman who has multiple medical problems including end-stage renal disease on dialysis 3 times a week for about the last month and a half, hypertension, anemia, congestive heart failure, atrial fibrillation, aortic stenosis, osteoarthritis, rheumatoid arthritis. The patient has been having trouble with hypotension for about the last 6 weeks ever since he started dialysis. His blood pressure meds have gradually been reduced. I called in some midodrine last week for him but he has not received it in the mail yet. He did go to dialysis on Tuesday and did pretty well. He has been residing at a nursing facility getting stronger and had improved and so on Tuesday he went home. Yesterday the patient went to the bathroom and was sitting on the commode. The commode is low and he was unable to get off of the commode so he called 911. They brought him over to the ER. He is not had any problems with nausea vomiting or diarrhea. No chest pain or shortness of breath. He is not on any new medications. Review of Systems Constitutional: Constitutional: Reports no add
--- NOTE | 2022-11-01 13:39 | ECHO_ITS ---
Patient Info Name: Arthur Cantor Age: 82 years : 1940 Gender: Male Ht: 73 in Wt: 275 lbs BSA: 2.58 m2 HR: 78 bpm BP: 102 / 65 mmHg Heart Rhythm: Atrial Fibrillation Technical Quality: Fair Exam Date: 11/01/2022 2:19 PM Exam Location: [facility] Pulmonary Patient Status: Outpatient Admit Date: 10/31/2022 Staff Ordering Physician: Jaylon Stringer MD Events Specialist: Kalee Canada RDCS Attending Provider: Caro Webb MD Referring Physician: Siomara MARCELINO; Exam Type: CA echo doppler color flow Study Info Indications - hypotension Complete two-dimensional, color flow and Doppler transthoracic echocardiogram is performed. Summary 1. Complete two-dimensional, color flow and Doppler transthoracic echocardiogram is performed. 2. Left ventricular chamber dimension is normal. 3. Left ventricular systolic function is hyperdynamic, estimated at >70%. 4. There is mild concentric increased left ventricular wall thickness. 5. The left ventricular diastolic function is abnormal. 6. E/e' 11 is mildly elevated. 7. Atrial fibrillation. 8. Left atrial chamber dimension is moderately enlarged. 9. Right atrial chamber dimension is mildly enlarged. 10. There is severe aortic valve sclerosis. 11. There is severe aortic valve stenosis with a peak velocity of 315 cm/s, mean gradient of 25 mmHg, and aortic valve area of 0.6 cm2. 12. There is trace tricuspid valve regurgitation. 13. No pulmonary hypertension, estimated pulmonary arterial systolic pressure is 37 mmHg. Left Ventricle E/e' 11 is mildly elevated. Atrial fibrillation. Left ventricular chamber dimension is normal. Left ventricular systolic function is hyperdynamic, estimated at >70%. There is mild concentric increased left ventricular wall thickness. The left ventricular diastolic function is abnormal. Right Ventricle Right ventricular systolic function is normal and with normal TAPSE 2.2 cm. Right ventricular chamber dimension is normal. Left Atria Left atrial chamber dimension is moderately enlarged. Right Atria Right atrial chamber dimension is mildly enlarged. Aortic Valve The aortic valve is trileaflet. There is severe aortic valve sclerosis. There is severe aortic valve stenosis with a peak velocity of 315 cm/s, mean gradient of 25 mmHg, and aortic valve area of 0.6 cm2. There is no aortic valve regurgitation. Pulmonic Valve There is no pulmonic regurgitation. Mitral Valve There is no mitral valve stenosis. There is no mitral valve regurgitation. Tricuspid Valve There is trace tricuspid valve regurgitation. No pulmonary hypertension, estimated pulmonary arterial systolic pressure is 37 mmHg. Pericardium/Pleural There is no pericardial effusion. Inferior Vena Cava Normal inferior vena cava with >50% collapse upon inspiration consistent with normal right atrial pressure, 5 mmHg. Aorta The aortic root size at the sinus of Valsalva is normal. Left Ventricular Outflow Tract Name Value Normal LVOT 2D LVOT Diameter 2.1 cm LVOT Doppler LVOT Peak Gradient 1 mmHg LVOT Mean Gradient 1 mmHg LVOT VTI 12 cm LVOT VTI/AV VTI Rati
[2022-11-01 14:00] VITALS: BP 102/65; PULSE 78; RESP 16; TEMP 36.2; O2SAT 97
[2022-11-01 19:11] VITALS: BP 96/70; PULSE 92; RESP 18; TEMP 36.8; O2SAT 92
[2022-11-01 20:00] VITALS: PULSE 92; RESP 18; O2SAT 92
[2022-11-02] VITALS (19 sets, daily range): BP systolic 91–128; BP diastolic 52–89; PULSE 70–98; RESP 16–20; TEMP 36–37.1; O2SAT 91–96
[2022-11-02 05:35] LABS: Basophils Percent Auto 0.6 % (0.2-1.2); Eosinophils Absolute Auto 0.1 K/mm3 (0-0.3); Eosinophils Percent Auto 2.4 % (0-4.4); Hematocrit 30.8 % (42.0-52.0); Hemoglobin 9.7 g/dL (14.0-18.0); Immature Granulocyte Absolute 0.04 K/mm3 (0.00-0.031); Immature Granulocyte Percent A 1.2 % (0-0.5); Lymphocytes Absolute Auto 0.68 K/mm3 (0.9-3.2); Lymphocytes Percent Auto 20.8 % (18.3-44.2); Mean Corpuscular HGB Conc 31.5 g/dl (32-36); Mean Corpuscular Hemoglobin 34.8 pg (26-34); Mean Corpuscular Volume 110.4 fl (80-100); Monocytes Absolute Auto 0.7 K/mm3 (0.1-0.6); Monocytes Percent Auto 20.5 % (2.6-8.5); Neutrophils Absolute Auto 1.8 K/mm3 (1.3-6.7); Neutrophils Percent Auto 54.5 % (45.5-73.1); Platelet Count Result 106 k/mm3 (150-375); Red Blood Count 2.79 M/mm3 (4.6-6.20); Red Cell Distribution Width 14.5 % (11.5-14.5); White Blood Count 3.3 K/mm3 (4.5-10.0)
[2022-11-02 06:48] LABS: Anisocytosis 1+ (NORMAL); Hypochromasia 1+ (NORMAL); Platelet Estimate Decreased (Adequate); Poikilocytosis 1+ (NORMAL); Schistocytes None Seen (NORMAL)
[2022-11-02] MEDS: CALCIUM ACETATE 667 MG TABLET 1334 MG PO ×2 (08:21→13:02)
[2022-11-02] MEDS: NYSTATIN 100,000 UNITS/ML SUSP 5 ML ORAL.SUSP PO ×3 (08:21→19:50)
[2022-11-02] MEDS: APIXABAN 2.5 MG TABLET PO ×2 (08:21→19:50)
[2022-11-02] MEDS: FLUTICASONE PROPIONATE 0.05% NA SPR 16 GM BTL (*BKC) 1 SPRAY NASAL ×2 (08:22→19:50)
[2022-11-02] MEDS: MIDODRINE HCL 2.5 MG TABLET 5 MG PO ×2 (08:22→13:04)
[2022-11-02] MEDS: PANTOPRAZOLE 40 MG TABLET PO (08:22)
[2022-11-02] MEDS: FAMOTIDINE 20 MG TABLET PO (08:23)
[2022-11-02] MEDS: HYDROcodone/acetaminophen (*CRX) 5-325 MG TABLET 1 TAB PO ×2 (08:24→23:49)
--- NOTE | 2022-11-02 09:46 | PM.CNOR ---
Assessment and Plan Assessment and plan (1) DJD (degenerative joint disease) of knee: Qualifiers: Osteoarthritis type: primary Laterality: left Qualified Code(s): M17.12 - Unilateral primary osteoarthritis, left knee Code(s): M17.10 - Unilateral primary osteoarthritis, unspecified knee Status: Acute Assessment and Plan: Left knee pain status post fall. Radiographs reveal severe, [id number], tricompartmental osteoarthritis and a moderate joint effusion. On exam, no erythema or signs of infection. Patient does have active and passive range of motion of the left knee. Full range of motion limited by effusion. Discussed condition, nature, etiology course of natural history. Conservative and operative treatment options reviewed as well as risks and benefits of each. Recommended aspiration of the left knee joint and injection with cortisone for pain relief. Patient has been seen by Dr. Tripp in the past approximately 1 year ago. He is not a surgical candidate for a total knee arthroplasty due to multiple medical comorbidities. He has not had any cortisone for conservative treatment since his previous appointment with Dr. Tripp. The risks of injection were reviewed including but not limited to skin color changes, atrophy of the soft tissue, tendon or soft tissue rupture, joint degeneration, hyper inflammatory response, allergic reaction, continued pain or dysfunction. Specific risks of the procedure including deep infection or soft tissue rupture or recurrence of symptoms reviewed. No guarantees were offered. The patient understands the need for possible further treatment. Consent obtained. Left knee aspirated. 95 mL of serosanguineous fluid aspirated from the knee, cortisone injection performed. Patient tolerated procedure well. See procedure note for details. He may begin PT and OT with weight-bearing as tolerated for bilateral lower extremities. Pain control. Ice. Patient may follow-up in the outpatient orthopedic clinic as he has already established with Dr. Tripp. No further recommendations from an orthopedic standpoint at this time. Thank you for allowing us to assist in the care of this patient. Please contact us for any concerns. (2) Effusion of knee joint: Qualifiers: Laterality: left Qualified Code(s): M25.462 - Effusion, left knee Code(s): M25.469 - Effusion, unspecified knee Status: Acute Assessment and Plan: Moderate left knee joint effusion noted on exam. Discussed condition, nature, etiology and course of natural history. Conservative treatment options reviewed. Recommended aspiration prior to injection. Aspiration performed under sterile conditions. Aspirate serosanguineous in nature. No signs of infection. Joint without erythema. Cortisone injection performed. Recommended use of neoprene knee sleeve. (3) History of total knee replacement: Qualifiers: Laterality: right Qualified Code(s): Z96.651 - Presence of right artificial knee joint Code(s): Z96.659 - Presence of unspecified artificial knee joint Status: Acute Assessment and Plan: Radiographs of the right knee reveal right total knee arthroplasty in good position. Prosthesis well seated, small knee joint effusion which is unchanged from comparison radiographs. No evidence of fracture, dislocation or acute abnormalities. Patient does have good flexion and extension of the right knee. No significant knee joint effusion. No signs of knee joint infection. Would recommend lidocaine patch for pain relief. Orders placed. Patient may follow-up in the outpatient orthopedic clinic. Plan Reviewed radiographs, labs and patient history with attending physician, Dr. Tripp who agrees with current plan of care as indicated above. Agrees with procedure recommendations. No further recommendations at this time. History of Present Illness HPI Consult date: 11/02/22 Chief comp
[2022-11-02 10:12] LABS: Albumin Level 2.9 g/dL (3.5-5.1); Anion Gap 7 mmol/L (8-16); Blood Urea Nitrogen 40 mg/dL (9-20); Carbon Dioxide 28 mmol/L (22-30); Chloride 101 mmol/L (98-107); Estimated CRCL calculation 8 ml/min; Estimated Glomerular Filt Rate 6; Glucose 74 mg/dL (65-110); Phosphorus 6.5 mg/dL (2.5-4.5); Potassium 4.3 mmol/L (3.4-5.0); Sodium 136 mmol/L (137-145)
--- NOTE | 2022-11-02 10:26 | PCOTNOTE ---
Attempted to see pt. for occupational therapy evaluation. Per pt. with confirmation from nursing, Ortho plans to aspirate knee and give cortisone injection after lunch time today. Pt. to be seen after this for safety and pain management. Nursing aware. Following
[2022-11-02 11:09] LABS: Hepatitis B Surface Antigen Negative (Negative)
[2022-11-02 11:14] LABS: Hepatitis B Core IgM Result Negative (Negative)
--- NOTE | 2022-11-02 13:05 | PM.OP ---
Procedure Note - Brief Procedure Note - Brief Date of procedure: 11/02/22 Left Knee DJD with Large Knee Joint Effusion Post-op diagnosis: Same Procedure performed: Aspiration/Injection Left Knee Surgeon: JARAD Boyd Anesthesia: local Description of procedure: Aspiration/Injection left knee Estimated blood loss (mL): 0 Tourniquet time (min): 0 IV fluids (mL): 0 Drains: No Packing: No Pathology: None sent Complications: No immediate complications Condition: Stable Disposition: No change Joint Aspiration/Injection Pre-Procedure Pre-procedure care: Consent was obtained, Procedures/risks were explained, Questions were answered, Correct patient identified and Correct side and site confirmed Position Position: Laying Site Prepped Technique: sterile technique Anesthetic: lidocaine 1% plain 18 gauge Injection Details left arthrocentesis major joint Knee joint Manual palpation Fluid: Serosanguinous Fluid Withdrawn (mL): 95 Comments:: 80mg (1mL) of Depo injected into the left knee joint s/p aspiration. Sterile Dressing Pressure Improvement by site: Moderate Post Procedure Patient tolerated the procedure well?: Tolerated procedure well
--- NOTE | 2022-11-02 14:24 | PCPTNOTE ---
Per hospitalist Mustapha Hodges, hold therapy day. Will follow.
--- NOTE | 2022-11-02 14:30 | PM.IMPN ---
Progress Note: A&P Assessment and Plan (1) Hypotension: Qualifiers: Hypotension type: unspecified hypotension type Qualified Code(s): I95.9 - Hypotension, unspecified Code(s): I95.9 - Hypotension, unspecified Status: Acute Assessment and Plan: Blood pressure noted to be 99/80 hold metoprolol start midodrine trend blood pressure albumin 25 g x 1 on 11/01/22 adjust therapy as indicated (2) Weakness: Code(s): R53.1 - Weakness Status: Acute Assessment and Plan: Likely secondary to chronic illness Prolonged hospitalization Multiple medical problems PT OT (3) ESRD (end stage renal disease) on dialysis: Code(s): N18.6 - End stage renal disease; Z99.2 - Dependence on renal dialysis Status: Acute Assessment and Plan: Dialysis as scheduled , , Nephrology consult Trend urine output Trend labs Currently BUN/Cr 40/8.80 Stable at this time (4) Atrial fibrillation and flutter: Code(s): I48.91 - Unspecified atrial fibrillation; I48.92 - Unspecified atrial flutter Status: Acute Assessment and Plan: Rate control and anticoagulated Continue home Eliquis (5) Glomerulonephritis determined by biopsy: Code(s): N05.9 - Unspecified nephritic syndrome with unspecified morphologic changes Status: Acute Assessment and Plan: Currently on dialysis (6) DJD (degenerative joint disease): Qualifiers: Osteoarthritis location: knee Osteoarthritis type: post-traumatic Laterality: left Qualified Code(s): 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, left knee Code(s): M19.90 - Unspecified osteoarthritis, unspecified site Status: Acute Assessment and Plan: A status post a right knee replacement Left knee with significant osteoarthritis Tylenol Trend pain Ortho consulted (7) Obesity: Qualifiers: Obesity type: due to excess calories Obesity classification: adult class 2 (BMI 35 - 39.9) Serious obesity comorbidity presence: with serious comorbidity Body mass index: BMI 36.0-36.9 Qualified Code(s): E66.01 - Morbid (severe) obesity due to excess calories; Z68.36 - Body mass index [BMI] 36.0-36.9, adult Code(s): E66.9 - Obesity, unspecified Status: Acute Assessment and Plan: Calorie restricted diet (8) JUVE (obstructive sleep apnea): Code(s): G47.33 - Obstructive sleep apnea (adult) (pediatric) Status: Acute Assessment and Plan: CPAP at nighttime (9) Effusion, left knee: Code(s): M25.462 - Effusion, left knee Status: Acute Assessment and Plan: Ortho consult Seen on the knee xray might need an aspiration Pain medications ordered PT/OT when appropiate (10) Fall: Qualifiers: Encounter type: initial encounter Qualified Code(s): W19.XXXA - Unspecified fall, initial encounter Code(s): W19.XXXA - Unspecified fall, initial encounter Status: Acute Assessment and Plan: Fall precautions PT/OT when appropriate Time Spent With Patient Time: 37 minutes Time with patient: Greater than 35 minutes Subjective Date/time seen: 11/02/22 1430 Interval history: 11/02/22 1430 patient is resting in bed. Patient stated they did drain his leg today it is any does feel a lot better. He has been a little stiff with bending. He denies any current chest pain, shortness a breath, nausea, vomiting, diarrhea constipation. He is waiting to go to dialysis which she stated was around 430. Currently patient is stable and will get PT and OT in the morning. 11/01/22 1015 patient is lying in bed. Patient stated that he is having some pain in the right knee greater than the left knee however both kne
--- NOTE | 2022-11-02 14:30 | P.PNIM_ITS ---
Progress Note: A&P Assessment and Plan (1) Hypotension: Qualifiers: Hypotension type: unspecified hypotension type Qualified Code(s): I95.9 - Hypotension, unspecified Code(s): I95.9 - Hypotension, unspecified Status: Acute Assessment and Plan: * Blood pressure noted to be 99/80 * hold metoprolol start midodrine * trend blood pressure * albumin 25 g x 1 on 11/01/22 * adjust therapy as indicated (2) Weakness: Code(s): R53.1 - Weakness Status: Acute Assessment and Plan: * Likely secondary to chronic illness * Prolonged hospitalization * Multiple medical problems * PT OT (3) ESRD (end stage renal disease) on dialysis: Code(s): N18.6 - End stage renal disease; Z99.2 - Dependence on renal dialysis Status: Acute Assessment and Plan: * Dialysis as scheduled es, , Sats * Nephrology consult * Trend urine output * Trend labs * Currently BUN/Cr 40/8.80 * Stable at this time (4) Atrial fibrillation and flutter: Code(s): I48.91 - Unspecified atrial fibrillation; I48.92 - Unspecified atrial flutter Status: Acute Assessment and Plan: * Rate control and anticoagulated * Continue home Eliquis (5) Glomerulonephritis determined by biopsy: Code(s): N05.9 - Unspecified nephritic syndrome with unspecified morphologic changes Status: Acute Assessment and Plan: * Currently on dialysis (6) DJD (degenerative joint disease): Qualifiers: Osteoarthritis location: knee Osteoarthritis type: post-traumatic Laterality: left Qualified Code(s): M17.32 - Unilateral post-traumatic osteo arthritis, left knee Code(s): M19.90 - Unspecified osteoarthritis, unspecified site Status: Acute Assessment and Plan: * A status post a right knee replacement * Left knee with significant osteoarthritis * Tylenol * Trend pain * Ortho consulted (7) Obesity: Qualifiers: Obesity type: due to excess calories Obesity classification: adult class 2 (BMI 35 - 39.9) Serious obesity comorbidity presence: with serious comorbidity Body mass index: BMI 36.0-36.9 Qualified Code(s): E66.01 - Morbid (severe) obesity due to excess calories; Z68.36 - Body mass index [BMI] 36.0- 36.9, adult Code(s): E66.9 - Obesity, unspecified Status: Acute Assessment and Plan: * Calorie restricted diet (8) JUVE (obstructive sleep apnea): Code(s): G47.33 - Obstructive sleep apnea (adult) (pediatric) Status: Acute Assessment and Plan: * CPAP at nighttime (9) Effusion, left knee: Code(s): M25.462 - Effusion, left knee Status: Acute Assessment and Plan: * Ortho consult * Seen on the knee xray * might need an aspiration * Pain medications ordered * PT/OT when appropiate (10) Fall: Qualifiers: Encounter type: initial encounter Qualified Code(s): W19.XXXA - Unspecified fall, initial encounter Code(s): W19.XXXA - Unspecified fall, initial encounter Status: Acute Assessment and Plan: * Fall precautions * PT/OT when appro
--- NOTE | 2022-11-02 18:12 | PM.PNNEP ---
Progress Note: A&P Assessment and Plan (1) End stage kidney disease: Code(s): N18.6 - End stage renal disease Status: Acute Assessment and Plan: the patient is on dialysis 3 times a week. He is due tomorrow. His volume status looks okay. His potassium is fine. Will get a treatment tomorrow (2) Weakness: Code(s): R53.1 - Weakness Status: Acute Assessment and Plan: the patient is still recovering from his prior hospitalization. TSH and cortisol are okay. Hemoglobin is not bad enough to cause this kind of weakness. (3) Hypotension: Qualifiers: Hypotension type: unspecified hypotension type Qualified Code(s): I95.9 - Hypotension, unspecified Code(s): I95.9 - Hypotension, unspecified Status: Acute Assessment and Plan: This was better this morning but a little bit low on dialysis. He is getting midodrine and I added Florinef. Cortisol levels borderline low so will check a Cortrosyn stim test. (4) Microscopic polyangiitis: Code(s): M31.7 - Microscopic polyangiitis Status: Acute Assessment and Plan: Will check an ANCA level (5) Atrial fibrillation: Qualifiers: Atrial fibrillation type: unspecified Qualified Code(s): I48.91 - Unspecified atrial fibrillation Code(s): I48.91 - Unspecified atrial fibrillation Status: Acute Assessment and Plan: heart rate is well controlled (6) CHF (congestive heart failure): Code(s): I50.9 - Heart failure, unspecified Status: Acute Assessment and Plan: echo is ordered (7) HTN (hypertension): Code(s): I10 - Essential (primary) hypertension Status: Chronic Assessment and Plan: this is not an issue. (8) Anemia: Code(s): D64.9 - Anemia, unspecified Status: Chronic Assessment and Plan: Hemoglobin at the upper limits of target for a dialysis patient (9) Renal osteodystrophy: Code(s): N25.0 - Renal osteodystrophy Status: Acute Assessment and Plan: will check a phosphorus level in the morning Subjective Date/time seen: 11/02/22 18:12 Interval history: Arthur is on dialysis and tolerating it well. He was seen at 4:45 p.m.. We are removing some fluid. He got some physical therapy today and feels better. Review of Systems Cardiovascular: Cardiovascular: Reports no additional cardiovascular complaints Respiratory: Respiratory: Reports no additional respiratory complaints Gastrointestinal: Gastrointestinal: Reports no additional gastrointestinal complaints Genitourinary: Genitourinary: Reports no additional male genitourinary complaints Exam Narrative: WDWN in NAD skin no rash head ncat lungs clear cor reg no rub abd BS+ nontender and soft ext Trace edema. Objective Data Vital Signs Vital Signs: Vital Signs - 24 hr 11/01/22 19:11 11/01/22 20:00 11/02/22 04:07 Temperature 98.2 F 98.1 F Pulse Rate 92 92 86 Respiratory Rate 18 18 16 Blood Pressure 96/70 L 92/72 L Pulse Oximetry 92 92 91 Oxygen Delivery Room Air 11/02/22 08:20 11/02/22 10:20 11/02/22 14:00 Temperature 97.7 F Pulse Rate 86 Respiratory Rate 16 Blood Pressure 99/80 L Pulse Oximetry 96 93 Oxygen Delivery Room Air Room Air 11/02/22 15:17 11/02/22 15:25 11/02/22 15:40 Temperature 98.0 F Pulse Rate 78 75 84 Respiratory Rate 20 Blood Pressure 128/67 98/73 L 91/70 L Pulse Oximetry 93 Oxygen Delivery 11/02/22 16:00 11/02/22 16:20 11/02/22 16:40 Temperature Pulse Rate 89 93 83 Respiratory Rate Blood Pressure 98/75 L 95/73 L 100/52 L Pulse Oximetry Oxygen Delivery 11/02/22 17:00 11/02/22 17:20 11/02/22 17:40 Temperature Pulse Rate 90 81 89 Respiratory Rate Blood Pressure 105/77 97/69 L 108/68 Pulse Oximetry Oxygen Delivery Intake/Output Intake/Output: Intake & Output
[2022-11-02] MEDS: COSYNTROPIN 0.25 MG/ML VIAL IV PUSH (19:50)
[2022-11-02 20:42] LABS: Cortisol Baseline 7.63 ug/dL
[2022-11-03 04:10] VITALS: BP 97/58; PULSE 100; RESP 18; TEMP 36.9; O2SAT 96
[2022-11-03 06:14] LABS: Albumin Level 3.2 g/dL (3.5-5.1); Anion Gap 8 mmol/L (8-16); Blood Urea Nitrogen 30 mg/dL (9-20); Calcium 7.8 mg/dL (8.4-10.2); Carbon Dioxide 32 mmol/L (22-30); Chloride 98 mmol/L (98-107); Estimated CRCL calculation 11 ml/min; Estimated Glomerular Filt Rate 8; Glucose 151 mg/dL (65-110); Phosphorus 4.9 mg/dL (2.5-4.5); Potassium 4.3 mmol/L (3.4-5.0); Sodium 138 mmol/L (137-145)
[2022-11-03] MEDS: CALCIUM ACETATE 667 MG TABLET 1334 MG PO ×3 (08:11→16:54)
[2022-11-03] MEDS: FLUTICASONE PROPIONATE 0.05% NA SPR 16 GM BTL (*BKC) 1 SPRAY NASAL (08:11)
[2022-11-03] MEDS: FAMOTIDINE 20 MG TABLET PO ×2 (08:11→16:54)
[2022-11-03] MEDS: APIXABAN 2.5 MG TABLET PO ×2 (08:11→19:53)
[2022-11-03] MEDS: PANTOPRAZOLE 40 MG TABLET PO (08:11)
[2022-11-03] MEDS: MIDODRINE HCL 2.5 MG TABLET 5 MG PO ×3 (08:11→16:55)
[2022-11-03] MEDS: FLUDROCORTISONE ACETATE 0.1 MG TABLET PO (08:11)
[2022-11-03] MEDS: NYSTATIN 100,000 UNITS/ML SUSP 5 ML ORAL.SUSP PO ×4 (08:11→19:53)
[2022-11-03] MEDS: LIDOCAINE 5% PATCH 1 PATCH TRANSDERM (08:12)
[2022-11-03] MEDS: HYDROcodone/acetaminophen (*CRX) 5-325 MG TABLET 1 TAB PO ×2 (08:18→19:53)
--- NOTE | 2022-11-03 12:30 | PM.IMPN ---
Progress Note: A&P Assessment and Plan (1) Hypotension: Qualifiers: Hypotension type: unspecified hypotension type Qualified Code(s): I95.9 - Hypotension, unspecified Code(s): I95.9 - Hypotension, unspecified Status: Acute Assessment and Plan: Blood pressure noted to be 127/85 hold metoprolol start midodrine trend blood pressure albumin 25 g x 1 on 11/01/22 adjust therapy as indicated (2) Weakness: Code(s): R53.1 - Weakness Status: Acute Assessment and Plan: Likely secondary to chronic illness Prolonged hospitalization Multiple medical problems PT OT (3) ESRD (end stage renal disease) on dialysis: Code(s): N18.6 - End stage renal disease; Z99.2 - Dependence on renal dialysis Status: Acute Assessment and Plan: Dialysis as scheduled , , Nephrology consult Trend urine output Trend labs Currently BUN/Cr 30/6.50 Stable at this time (4) Atrial fibrillation and flutter: Code(s): I48.91 - Unspecified atrial fibrillation; I48.92 - Unspecified atrial flutter Status: Acute Assessment and Plan: Rate control and anticoagulated Continue home Eliquis (5) Glomerulonephritis determined by biopsy: Code(s): N05.9 - Unspecified nephritic syndrome with unspecified morphologic changes Status: Acute Assessment and Plan: Currently on dialysis (6) DJD (degenerative joint disease): Qualifiers: Osteoarthritis location: knee Osteoarthritis type: post-traumatic Laterality: left Qualified Code(s): 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, left knee Code(s): M19.90 - Unspecified osteoarthritis, unspecified site Status: Acute Assessment and Plan: A status post a right knee replacement Left knee with significant osteoarthritis Tylenol Trend pain Ortho consulted (7) Obesity: Qualifiers: Obesity type: due to excess calories Obesity classification: adult class 2 (BMI 35 - 39.9) Serious obesity comorbidity presence: with serious comorbidity Body mass index: BMI 36.0-36.9 Qualified Code(s): E66.01 - Morbid (severe) obesity due to excess calories; Z68.36 - Body mass index [BMI] 36.0-36.9, adult Code(s): E66.9 - Obesity, unspecified Status: Acute Assessment and Plan: Calorie restricted diet (8) JUVE (obstructive sleep apnea): Code(s): G47.33 - Obstructive sleep apnea (adult) (pediatric) Status: Acute Assessment and Plan: CPAP at nighttime (9) Effusion, left knee: Code(s): M25.462 - Effusion, left knee Status: Acute Assessment and Plan: Ortho consult Seen on the knee xray might need an aspiration Pain medications ordered PT/OT when appropriate Lidocaine patch ordered for both knees (10) Fall: Qualifiers: Encounter type: initial encounter Qualified Code(s): W19.XXXA - Unspecified fall, initial encounter Code(s): W19.XXXA - Unspecified fall, initial encounter Status: Acute Assessment and Plan: Fall precautions PT/OT when appropriate Time Spent With Patient Time: 36 minutes Time with patient: Greater than 35 minutes Subjective Date/time seen: 11/03/22 1230 Interval history: 11/03/22 1230 Patient is resting comfortably. Pain is still a problem. will order another lidocaine patch for the other knee. Denies any current chest pain, shortness of breath, nausea, vomiting, abdominal pain, weakness, or fatigue. He is trying to get to an assisted living however, explained that he might need to go to rehab prior to that as it is hard to get into an assisted living. 11/02/22 1430 patient is resting in bed. Patient stated they did drain his leg today it is any justin
--- NOTE | 2022-11-03 12:30 | P.PNIM_ITS ---
Progress Note: A&P Assessment and Plan (1) Hypotension: Qualifiers: Hypotension type: unspecified hypotension type Qualified Code(s): I95.9 - Hypotension, unspecified Code(s): I95.9 - Hypotension, unspecified Status: Acute Assessment and Plan: * Blood pressure noted to be 127/85 * hold metoprolol start midodrine * trend blood pressure * albumin 25 g x 1 on 11/01/22 * adjust therapy as indicated (2) Weakness: Code(s): R53.1 - Weakness Status: Acute Assessment and Plan: * Likely secondary to chronic illness * Prolonged hospitalization * Multiple medical problems * PT OT (3) ESRD (end stage renal disease) on dialysis: Code(s): N18.6 - End stage renal disease; Z99.2 - Dependence on renal dialysis Status: Acute Assessment and Plan: * Dialysis as scheduled es, , Sats * Nephrology consult * Trend urine output * Trend labs * Currently BUN/Cr 30/6.50 * Stable at this time (4) Atrial fibrillation and flutter: Code(s): I48.91 - Unspecified atrial fibrillation; I48.92 - Unspecified atrial flutter Status: Acute Assessment and Plan: * Rate control and anticoagulated * Continue home Eliquis (5) Glomerulonephritis determined by biopsy: Code(s): N05.9 - Unspecified nephritic syndrome with unspecified morphologic changes Status: Acute Assessment and Plan: * Currently on dialysis (6) DJD (degenerative joint disease): Qualifiers: Osteoarthritis location: knee Osteoarthritis type: post-traumatic Laterality: left Qualified Code(s): M17.32 - Unilateral post-traumatic oste oarthritis, left knee Code(s): M19.90 - Unspecified osteoarthritis, unspecified site Status: Acute Assessment and Plan: * A status post a right knee replacement * Left knee with significant osteoarthritis * Tylenol * Trend pain * Ortho consulted (7) Obesity: Qualifiers: Obesity type: due to excess calories Obesity classification: adult class 2 (BMI 35 - 39.9) Serious obesity comorbidity presence: with serious comorbidity Body mass index: BMI 36.0-36.9 Qualified Code(s): E66.01 - Morbid (severe) obesity due to excess calories; Z68.36 - Body mass index [BMI] 36.0- 36.9, adult Code(s): E66.9 - Obesity, unspecified Status: Acute Assessment and Plan: * Calorie restricted diet (8) JUVE (obstructive sleep apnea): Code(s): G47.33 - Obstructive sleep apnea (adult) (pediatric) Status: Acute Assessment and Plan: * CPAP at nighttime (9) Effusion, left knee: Code(s): M25.462 - Effusion, left knee Status: Acute Assessment and Plan: * Ortho consult * Seen on the knee xray * might need an aspiration * Pain medications ordered * PT/OT when appropriate * Lidocaine patch ordered for both knees (10) Fall: Qualifiers: Encounter type: initial encounter Qualified Code(s): W19.XXXA - Unspecified fall, initial encounter Code(s): W19.XXXA - Unspecified fall, initial encounter Status: Acute Assessment and Plan:
[2022-11-03 13:41] VITALS: BP 127/85; PULSE 102; RESP 16; TEMP 36.3; O2SAT 98
--- NOTE | 2022-11-03 14:30 | PM.PNNEP ---
Progress Note: A&P Assessment and Plan (1) End stage kidney disease: Code(s): N18.6 - End stage renal disease Status: Chronic Assessment and Plan: HD tomorrow continue T/T/S dialysis schedule while hospitalized follow electrolytes, volume status, and clearance (2) Weakness: Code(s): R53.1 - Weakness Status: Acute Assessment and Plan: likely due to deconditioning from last hospitalization TSH and cortisol okay some anemia but not likely severe enough to cause an issue continue PT/OT as tolerated (3) Hypotension: Qualifiers: Hypotension type: unspecified hypotension type Qualified Code(s): I95.9 - Hypotension, unspecified Code(s): I95.9 - Hypotension, unspecified Status: Acute Assessment and Plan: appears to be doing better in general on midodrine therapy on florinef as wel -- question need given normal cosyntropin stim test follow trend of hemodynamics (4) Microscopic polyangiitis: Code(s): M31.7 - Microscopic polyangiitis Status: Acute Assessment and Plan: known history and kidney biopsy proven off immunosuppression given no improvement in renal function over the last 3 months did have pulmonary manifestations as well probably needs outpatient follow-up with Pulmonary (5) Atrial fibrillation: Qualifiers: Atrial fibrillation type: unspecified Qualified Code(s): I48.91 - Unspecified atrial fibrillation Code(s): I48.91 - Unspecified atrial fibrillation Status: Acute Assessment and Plan: rate control strategy on anticoagulation (6) Anemia: Code(s): D64.9 - Anemia, unspecified Status: Chronic Assessment and Plan: due to ESRD Epogen with HD follow trend of H/H Will continue to follow. Subjective Date/time seen: 11/03/22 14:30 Interval history: Follow-up for end stage renal disease on hemodialysis. Chart reviewed -- assuming care from Dr. Stringer; tolerated dialysis yesterday without any issues or problems; no apparent distress noted at the time of my visit; no issues/events overnight or earlier this AM. Exam Narrative: General: WD/WN elderly male in NAD Heart: normal S1 and S2; irregular irregular; no rub Lungs: clear anteriorly, decreased at bases Abdomen: soft, nontender, nondistended, positive bowel sounds Extremities: no cyanosis or clubbing; trace edema Skin: warm and dry Objective Data Vital Signs Vital Signs: Vital Signs Temp Pulse Resp BP Pulse Ox O2 Del Method 11/03/22 13:41 97.3 F L 102 H 16 127/85 98 11/03/22 10:04 Room Air 11/03/22 10:41 Room Air 11/03/22 08:00 Room Air 11/03/22 04:10 98.4 F 100 18 97/58 L 96 11/02/22 20:04 98.8 F 70 18 120/89 96 11/02/22 19:15 98.0 F 91 20 95/56 L 95 Intake/Output Intake/Output: Intake & Output 10/31/22 11/01/22 11/02/22 11/03/22 23:59 23:59 23:59 23:59 Intake Total 1970 1420 1200 Output Total 100 1100 Balance 1488 108 2670 Meds/Results Medications: Active Medications Generic Name Dose Route Start Last Admin Trade Name Freq PRN Reason Stop Dose Admin Acetaminophen 650 mg 10/31/22 19:03 Acetaminophen 325 Mg Tablet PO Q4H PRN Mild Pain (1-3) or Fever Hydrocodone Bitart/Acetaminophen 1 tab 10/31/22 19:03 11/03/22 08:18 Hydrocodone/Acetaminophen (*Crx) 5-325 Mg Tablet PO 1 tab Q4H PRN Administration Pain Rated 4-6 Apixaban 2.5 mg 10/31/22 21:25 11/03/22 08:11 Apixaban 2.5 Mg Tablet PO 2.5 mg Q12HR ROBERT Administration Calcium Acetate 1,334 mg 11/01/22 09:00 11/03/22 16:54 Calcium Acetate 667 Mg Tablet PO 1,334 mg TID ROBERT Administration Famotidine 20 mg 10/31/22 21:25 11/03/22 16:54 Famotidine 20 Mg Tablet PO 20 mg BID ROBERT Administration Fludrocortisone Acetate 0.1 mg 11/02/22 12:50 11/03/22 08:11 Fludrocortisone Acetat
--- NOTE | 2022-11-03 14:30 | P.PNNP_ITS ---
Progress Note: A&P Assessment and Plan (1) End stage kidney disease: Code(s): N18.6 - End stage renal disease Status: Chronic Assessment and Plan: * HD tomorrow * continue T/T/S dialysis schedule while hospitalized * follow electrolytes, volume status, and clearance (2) Weakness: Code(s): R53.1 - Weakness Status: Acute Assessment and Plan: * likely due to deconditioning from last hospitalization * TSH and cortisol okay * some anemia but not likely severe enough to cause an issue * continue PT/OT as tolerated (3) Hypotension: Qualifiers: Hypotension type: unspecified hypotension type Qualified Code(s): I95.9 - Hypotension, unspecified Code(s): I95.9 - Hypotension, unspecified Status: Acute Assessment and Plan: * appears to be doing better in general * on midodrine therapy * on florinef as wel -- question need given normal cosyntropin stim test * follow trend of hemodynamics (4) Microscopic polyangiitis: Code(s): M31.7 - Microscopic polyangiitis Status: Acute Assessment and Plan: * known history and kidney biopsy proven * off immunosuppression given no improvement in renal function over the last 3 months * did have pulmonary manifestations as well * probably needs outpatient follow-up with Pulmonary (5) Atrial fibrillation: Qualifiers: Atrial fibrillation type: unspecified Qualified Code(s): I48.91 - Unspe cified atrial fibrillation Code(s): I48.91 - Unspecified atrial fibrillation Status: Acute Assessment and Plan: * rate control strategy * on anticoagulation (6) Anemia: Code(s): D64.9 - Anemia, unspecified Status: Chronic Assessment and Plan: * due to ESRD * Epogen with HD * follow trend of H/H Will continue to follow. Subjective Date/time seen: 11/03/22 14:30 Interval history: Follow-up for end stage renal disease on hemodialysis. Chart reviewed -- assuming care from Dr. Stringer; tolerated dialysis yesterday without any issues or problems; no apparent distress noted at the time of my visit; no issues/events overnight or earlier this AM. Exam Narrative: General: WD/WN elderly male in NAD Heart: normal S1 and S2; irregular irregular; no rub Lungs: clear anteriorly, decreased at bases Abdomen: soft, nontender, nondistended, positive bowel sounds Extremities: no cyanosis or clubbing; trace edema Skin: warm and dry Objective Data Vital Signs Vital Signs: Vital Signs Temp Pulse Resp BP Pulse Ox O2 Del Method 11/03/22 13:41 97.3 F L 102 H 16 127/85 98 11/03/22 10:04 Room Air 11/03/22 10:41 Room Air 11/03/22 08:00 Room Air 11/03/22 04:10 98.4 F 100 18 97/58 L 96 11/02/22 20:04 98.8 F 70 18 120/89 96 11/02/22 19:15 98.0 F 91 20 95/56 L 95 Intake/Output Intake/Output: Intake & Output 10/31/22 11/01/22 11/02/22 11/03/22 23:59 23:59 23:59 23:59 Intake Total 1970 1420 1200 Output Total 100 1100 Balance 5065 614 2173 Meds/Results Medications: Active Medications Generic Name Dose Route Start Last Admin Trade Name
[2022-11-03 19:59] VITALS: BP 103/77; PULSE 92; RESP 18; TEMP 36.9; O2SAT 94
[2022-11-03 21:40] VITALS: O2SAT 95
[2022-11-04] VITALS (16 sets, daily range): BP systolic 102–138; BP diastolic 73–102; PULSE 80–124; RESP 16–20; TEMP 36–36.8; O2SAT 96–97
[2022-11-04 06:01] LABS: Basophils Percent Auto 0.4 % (0.2-1.2); Eosinophils Percent Auto 0.8 % (0-4.4); Hematocrit 30.1 % (42.0-52.0); Hemoglobin 9.3 g/dL (14.0-18.0); Immature Granulocyte Absolute 0.06 K/mm3 (0.00-0.031); Immature Granulocyte Percent A 1.2 % (0-0.5); Lymphocytes Percent Auto 14.4 % (18.3-44.2); Mean Corpuscular HGB Conc 30.9 g/dl (32-36); Mean Corpuscular Hemoglobin 34.4 pg (26-34); Mean Corpuscular Volume 111.5 fl (80-100); Mean Platelet Volume 9.8 fl (7.4-10.4); Monocytes Absolute Auto 0.7 K/mm3 (0.1-0.6); Monocytes Percent Auto 14.8 % (2.6-8.5); Neutrophils Absolute Auto 3.3 K/mm3 (1.3-6.7); Neutrophils Percent Auto 68.4 % (45.5-73.1); Platelet Count Result 137 k/mm3 (150-375); Red Cell Distribution Width 14.6 % (11.5-14.5); White Blood Count 4.9 K/mm3 (4.5-10.0)
[2022-11-04 06:17] LABS: Alanine Aminotransferase 17 U/L (6-50); Albumin Level 3.2 g/dL (3.5-5.1); Alkaline Phosphatase 53 U/L (38-126); Anion Gap 5 mmol/L (8-16); Aspartate Amino Transferase 22 U/L (17-59); Bilirubin,Total 0.4 mg/dL (0.2-1.3); Blood Urea Nitrogen 40 mg/dL (9-20); Calcium 7.9 mg/dL (8.4-10.2); Carbon Dioxide 33 mmol/L (22-30); Chloride 99 mmol/L (98-107); Estimated CRCL calculation 10 ml/min; Estimated Glomerular Filt Rate 7; Glucose 82 mg/dL (65-110); Magnesium 2.1 mg/dL (1.6-2.3); Potassium 4.4 mmol/L (3.4-5.0); Sodium 137 mmol/L (137-145)
--- NOTE | 2022-11-04 08:45 | PCOTNOTE ---
Patient out of the room at this time. Patient is in dialysis this A.M.
[2022-11-04] MEDS: EPOETIN ALFA-EPBX 10,000 UNITS/ML VIAL 10000 UNITS IV PUSH (11:10)
--- NOTE | 2022-11-04 11:21 | P.DS_ITS ---
DS: Admitting Diagnosis Discharge Date 11/04/22 Admitting Diagnosis Fall DS: Discharge Diagnosis Discharge Diagnosis (1) Hypotension: Qualifiers: Hypotension type: unspecified hypotension type Qualified Code(s): I95.9 - Hypotension, unspecified Code(s): I95.9 - Hypotension, unspecified Status: Acute Assessment and Plan: * Blood pressure noted to be 127/85 * hold metoprolol start midodrine * trend blood pressure * albumin 25 g x 1 on 11/01/22 * adjust therapy as indicated (2) Weakness: Code(s): R53.1 - Weakness Status: Acute Assessment and Plan: * Likely secondary to chronic illness * Prolonged hospitalization * Multiple medical problems * PT OT (3) ESRD (end stage renal disease) on dialysis: Code(s): N18.6 - End stage renal disease; Z99.2 - Dependence on renal dialysis Status: Acute Assessment and Plan: * Dialysis as scheduled es, , Sats * Nephrology consult * Trend urine output * Trend labs * Currently BUN/Cr 30/6.50 * Stable at this time (4) Atrial fibrillation and flutter: Code(s): I48.91 - Unspecified atrial fibrillation; I48.92 - Unspecified atrial flutter Status: Acute Assessment and Plan: * Rate control and anticoagulated * Continue home Eliquis (5) Glomerulonephritis determined by biopsy: Code(s): N05.9 - Unspecified nephritic syndrome with unspecified morphologic changes Status: Acute Assessment and Plan: * Currently on dialysis (6) DJD (degenerative joint disease): Qualifiers: Osteoarthritis location: knee Osteoarthritis type: post-traumatic Laterality: left Qualified Code(s): M17.32 - Unilateral post-traumatic ost eoarthritis, left knee Code(s): M19.90 - Unspecified osteoarthritis, unspecified site Status: Acute Assessment and Plan: * A status post a right knee replacement * Left knee with significant osteoarthritis * Tylenol * Trend pain * Ortho consulted (7) Obesity: Qualifiers: Obesity type: due to excess calories Obesity classification: adult class 2 (BMI 35 - 39.9) Serious obesity comorbidity presence: with serious comorbidity Body mass index: BMI 36.0-36.9 Qualified Code(s): E66.01 - Morbid (severe) obesity due to excess calories; Z68.36 - Body mass index [BMI] 36.0- 36.9, adult Code(s): E66.9 - Obesity, unspecified Status: Acute Assessment and Plan: * Calorie restricted diet (8) JUVE (obstructive sleep apnea): Code(s): G47.33 - Obstructive sleep apnea (adult) (pediatric) Status: Acute Assessment and Plan: * CPAP at nighttime (9) Effusion, left knee: Code(s): M25.462 - Effusion, left knee Status: Acute Assessment and Plan: * Ortho consult * Seen on the knee xray * might need an aspiration * Pain medications ordered * PT/OT when appropriate * Lidocaine patch ordered for both knees (10) Fall: Qualifiers: Encounter type: initial encounter Qualified Code(s): W19.XXXA - Unspecified fall, initial encounter Code(s):
--- NOTE | 2022-11-04 11:21 | PM.DS ---
DS: Admitting Diagnosis Discharge Date 11/04/22 Admitting Diagnosis Fall DS: Discharge Diagnosis Discharge Diagnosis (1) Hypotension: Qualifiers: Hypotension type: unspecified hypotension type Qualified Code(s): I95.9 - Hypotension, unspecified Code(s): I95.9 - Hypotension, unspecified Status: Acute Assessment and Plan: Blood pressure noted to be 127/85 hold metoprolol start midodrine trend blood pressure albumin 25 g x 1 on 11/01/22 adjust therapy as indicated (2) Weakness: Code(s): R53.1 - Weakness Status: Acute Assessment and Plan: Likely secondary to chronic illness Prolonged hospitalization Multiple medical problems PT OT (3) ESRD (end stage renal disease) on dialysis: Code(s): N18.6 - End stage renal disease; Z99.2 - Dependence on renal dialysis Status: Acute Assessment and Plan: Dialysis as scheduled , , Nephrology consult Trend urine output Trend labs Currently BUN/Cr 30/6.50 Stable at this time (4) Atrial fibrillation and flutter: Code(s): I48.91 - Unspecified atrial fibrillation; I48.92 - Unspecified atrial flutter Status: Acute Assessment and Plan: Rate control and anticoagulated Continue home Eliquis (5) Glomerulonephritis determined by biopsy: Code(s): N05.9 - Unspecified nephritic syndrome with unspecified morphologic changes Status: Acute Assessment and Plan: Currently on dialysis (6) DJD (degenerative joint disease): Qualifiers: Osteoarthritis location: knee Osteoarthritis type: post-traumatic Laterality: left Qualified Code(s): 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, left knee Code(s): M19.90 - Unspecified osteoarthritis, unspecified site Status: Acute Assessment and Plan: A status post a right knee replacement Left knee with significant osteoarthritis Tylenol Trend pain Ortho consulted (7) Obesity: Qualifiers: Obesity type: due to excess calories Obesity classification: adult class 2 (BMI 35 - 39.9) Serious obesity comorbidity presence: with serious comorbidity Body mass index: BMI 36.0-36.9 Qualified Code(s): E66.01 - Morbid (severe) obesity due to excess calories; Z68.36 - Body mass index [BMI] 36.0-36.9, adult Code(s): E66.9 - Obesity, unspecified Status: Acute Assessment and Plan: Calorie restricted diet (8) JUVE (obstructive sleep apnea): Code(s): G47.33 - Obstructive sleep apnea (adult) (pediatric) Status: Acute Assessment and Plan: CPAP at nighttime (9) Effusion, left knee: Code(s): M25.462 - Effusion, left knee Status: Acute Assessment and Plan: Ortho consult Seen on the knee xray might need an aspiration Pain medications ordered PT/OT when appropriate Lidocaine patch ordered for both knees (10) Fall: Qualifiers: Encounter type: initial encounter Qualified Code(s): W19.XXXA - Unspecified fall, initial encounter Code(s): W19.XXXA - Unspecified fall, initial encounter Status: Acute Assessment and Plan: Fall precautions PT/OT when appropriate DS: Summary Hospital Course Hospital Course: This is a 83-year-old with a past medical history of AFib, end-stage renal disease on dialysis, obesity, hypertension, aortic stenosis and congestive heart failure to presented to the ED on 10/31/2022 due to a fall. Patient recently discharged from rehab and was at home for 5 days and then fell. Chest x-ray revealed cardiomegaly and mild interstitial edema. The fall caused patient to have bilateral knee pain. X-ray of left knee revealed severe tricompartment osteoarthritis of the left knee and moderate large joint ef
--- NOTE | 2022-11-04 11:30 | P.PNNP_ITS ---
Progress Note: A&P Assessment and Plan (1) End stage kidney disease: Code(s): N18.6 - End stage renal disease Status: Chronic Assessment and Plan: * HD today * continue T/T/S dialysis schedule while hospitalized * follow electrolytes, volume status, and clearance (2) Weakness: Code(s): R53.1 - Weakness Status: Acute Assessment and Plan: * likely due to deconditioning from last hospitalization * TSH and cortisol okay * some anemia but not likely severe enough to cause an issue * continue PT/OT as tolerated (3) Hypotension: Qualifiers: Hypotension type: unspecified hypotension type Qualified Code(s): I95.9 - Hypotension, unspecified Code(s): I95.9 - Hypotension, unspecified Status: Acute Assessment and Plan: * appears to be doing better in general * on midodrine therapy * on florinef as wel -- question need given normal cosyntropin stim test * follow trend of hemodynamics (4) Microscopic polyangiitis: Code(s): M31.7 - Microscopic polyangiitis Status: Acute Assessment and Plan: * known history and kidney biopsy proven * off immunosuppression given no improvement in renal function over the last 3 months * did have pulmonary manifestations as well * probably needs outpatient follow-up with Pulmonary (5) Atrial fibrillation: Qualifiers: Atrial fibrillation type: unspecified Qualified Code(s): I48.91 - Unspecified atrial fibrillation Code(s): I48.91 - Unspecified atrial fibrillation Status: Acute Assessment and Plan: * rate control strategy * on anticoagulation (6) Anemia: Code(s): D64.9 - Anemia, unspecified Status: Chronic Assessment and Plan: * due to ESRD * Epogen with HD * follow trend of H/H Will continue to follow. Subjective Date/time seen: 11/04/22 11:30 Interval history: Follow-up for end stage renal disease on hemodialysis. Tolerating hemodialysis treatment at the time of my visit (seen on HD at 11:20AM); no new issues or concerns voiced at this time; no events overnight or earlier this AM; BP seems relatively stable during dialysis treatment. Exam Narrative: General: WD/WN elderly male in NAD Heart: normal S1 and S2; irregular irregular; no rub Lungs: clear anteriorly, decreased at bases Abdomen: soft, nontender, nondistended, positive bowel sounds Extremities: no cyanosis or clubbing; trace edema Skin: warm and intact Objective Data Vital Signs Vital Signs: Vital Signs Temp Pulse Resp BP Pulse Ox O2 Del Method 11/04/22 11:30 102 H 120/101 H 11/04/22 11:20 101 H 126/97 H 11/04/22 11:00 98 132/90 11/04/22 10:40 95 116/83 11/04/22 10:20 93 123/88 11/04/22 10:00 93 114/91 H 11/04/22 09:40 92 133/96 H 11/04/22 09:20 91 122/98 H 11/04/22 09:00 80 138/102 H 11/04/22 08:40 88 129/102 H 11/04/22 08:33 83 132/92 H 11/04/22 08:30 98.3 F 87 20 121/88 11/04/22 04:04 97.9 F 91 18 113/86 96 11/03/22 21:40 95 Room Air 11/03/22 19:59 98.5 F 92 18 103/77 94 11/03/22 13:41 97.3 F L 102 H 16 127/85 98 Intake/Output Intake/Output:
--- NOTE | 2022-11-04 11:30 | PM.PNNEP ---
Progress Note: A&P Assessment and Plan (1) End stage kidney disease: Code(s): N18.6 - End stage renal disease Status: Chronic Assessment and Plan: HD today continue T/T/S dialysis schedule while hospitalized follow electrolytes, volume status, and clearance (2) Weakness: Code(s): R53.1 - Weakness Status: Acute Assessment and Plan: likely due to deconditioning from last hospitalization TSH and cortisol okay some anemia but not likely severe enough to cause an issue continue PT/OT as tolerated (3) Hypotension: Qualifiers: Hypotension type: unspecified hypotension type Qualified Code(s): I95.9 - Hypotension, unspecified Code(s): I95.9 - Hypotension, unspecified Status: Acute Assessment and Plan: appears to be doing better in general on midodrine therapy on florinef as wel -- question need given normal cosyntropin stim test follow trend of hemodynamics (4) Microscopic polyangiitis: Code(s): M31.7 - Microscopic polyangiitis Status: Acute Assessment and Plan: known history and kidney biopsy proven off immunosuppression given no improvement in renal function over the last 3 months did have pulmonary manifestations as well probably needs outpatient follow-up with Pulmonary (5) Atrial fibrillation: Qualifiers: Atrial fibrillation type: unspecified Qualified Code(s): I48.91 - Unspecified atrial fibrillation Code(s): I48.91 - Unspecified atrial fibrillation Status: Acute Assessment and Plan: rate control strategy on anticoagulation (6) Anemia: Code(s): D64.9 - Anemia, unspecified Status: Chronic Assessment and Plan: due to ESRD Epogen with HD follow trend of H/H Will continue to follow. Subjective Date/time seen: 11/04/22 11:30 Interval history: Follow-up for end stage renal disease on hemodialysis. Tolerating hemodialysis treatment at the time of my visit (seen on HD at 11:20AM); no new issues or concerns voiced at this time; no events overnight or earlier this AM; BP seems relatively stable during dialysis treatment. Exam Narrative: General: WD/WN elderly male in NAD Heart: normal S1 and S2; irregular irregular; no rub Lungs: clear anteriorly, decreased at bases Abdomen: soft, nontender, nondistended, positive bowel sounds Extremities: no cyanosis or clubbing; trace edema Skin: warm and intact Objective Data Vital Signs Vital Signs: Vital Signs Temp Pulse Resp BP Pulse Ox O2 Del Method 11/04/22 11:30 102 H 120/101 H 11/04/22 11:20 101 H 126/97 H 11/04/22 11:00 98 132/90 11/04/22 10:40 95 116/83 11/04/22 10:20 93 123/88 11/04/22 10:00 93 114/91 H 11/04/22 09:40 92 133/96 H 11/04/22 09:20 91 122/98 H 11/04/22 09:00 80 138/102 H 11/04/22 08:40 88 129/102 H 11/04/22 08:33 83 132/92 H 11/04/22 08:30 98.3 F 87 20 121/88 11/04/22 04:04 97.9 F 91 18 113/86 96 11/03/22 21:40 95 Room Air 11/03/22 19:59 98.5 F 92 18 103/77 94 11/03/22 13:41 97.3 F L 102 H 16 127/85 98 Intake/Output Intake/Output: Intake & Output 11/01/22 11/02/22 11/03/22 11/04/22 23:59 23:59 23:59 23:59 Intake Total 1970 1420 1200 100 Output Total 100 1100 2200 Balance 6659 281 4786 -2100 Meds/Results Medications: Active Medications Generic Name Dose Route Start Last Admin Trade Name Freq PRN Reason Stop Dose Admin Acetaminophen 650 mg 10/31/22 19:03 Acetaminophen 325 Mg Tablet PO Q4H PRN Mild Pain (1-3) or Fever Hydrocodone Bitart/Acetaminophen 1 tab 10/31/22 19:03 11/04/22 12:05 Hydrocodone/Acetaminophen (*Crx) 5-325 Mg Tablet PO 1 tab Q4H PRN Administration Pain Rated 4-6 Apixaban 2.5 mg 10/31/22 21:25 11/04/22 12:02 Apixaban 2.5 Mg Tablet PO 2.5 mg Q12HR ROBERT Administrat
--- NOTE | 2022-11-04 11:38 | PM.PNORT ---
Progress Note: A&P Assessment and Plan (1) Effusion of knee joint: Qualifiers: Laterality: left Qualified Code(s): M25.462 - Effusion, left knee Code(s): M25.469 - Effusion, unspecified knee Status: Acute Assessment and Plan: Patient reports some improvement in pain s/p aspiration and injection. He continues to complain of pain. Continue PT/OT. Pain control. Follow up in the outpatient clinic PRN. (2) Osteoarthritis: Qualifiers: Osteoarthritis location: knee Osteoarthritis type: primary Laterality: left Qualified Code(s): M17.12 - Unilateral primary osteoarthritis, left knee Code(s): M19.90 - Unspecified osteoarthritis, unspecified site Status: Acute Time Spent With Patient Time with patient: less than 15 minutes Subjective Subjective Date/Time Seen: 11/04/22 11:38 Interval history: Patient in HD at time of exam. He continues to complain of bilateral knee pain. He does report some improvement in the left knee s/p aspiration/injection. Review of Systems Review of Systems: All systems reviewed & are unremarkable except as noted in HPI and below Exam Const: General: cooperative and obese Nutritional Appearance: average body habitus Orientation/consciousness: patient oriented x3 Limitations: no limitations HENMT: Head: normal to inspection Ears: hearing grossly normal bilaterally Face/Nose/Sinus: Normal external nose present and normal facial exam Face and sinus: normal facial exam Mouth: Yes moist mucous membranes Teeth and gingiva: dentition normal Eyes: General: appearance normal, both eyes and all related structures Pupils: Equal, round and reactive pupils present EOM: EOMs intact bilaterally Neck: Neck: normal visual inspection Chest: Chest palpation & inspection: other (HD catheter left chest ) Resp: Effort & Inspection: normal respiratory effort and able to speak in complete sentences Cardio: Jugular venous distension: no JVD Neuro: General: patient oriented x3 Cranial nerves: Yes Equal, round and reactive pupils present Extrem: General: normal to inspection, capillary refill normal, no calf tenderness and abnormal gait (antalgic ) Right lower extremity: normal to inspection, full ROM, normal capillary refill and knee (Right TKA incision well healed ) Details: normal to inspection and normal ROM (with pain ); no swelling, no lacerations, no ecchymosis, no crepitus, no deformity and no unusual warmth Left lower extremity: normal to inspection, normal capillary refill, knee Details: normal to inspection, tenderness Location: of the medial joint line, abnormal ROM Details: pain with active ROM Details: with extension and with flexion and with range as follows (0-125 degrees ); no pain with passive ROM, knee ligament exam normal, Prasanna's Test Details: positive medially and crepitus Location: at the knee and at the patella; no swelling, no ecchymosis and no unusual warmth and lower leg Details: normal to inspection and no edema Objective Data Vital Signs Vital Signs: Vital Signs - 24 hr 11/03/22 13:41 11/03/22 19:59 11/03/22 21:40 Temperature 36.3 C L 36.9 C Pulse Rate 102 H 92 Respiratory Rate 16 18 Blood Pressure 127/85 103/77 Pulse Oximetry 98 94 95 Oxygen Delivery Room Air 11/04/22 04:04 11/04/22 08:30 11/04/22 08:33 Temperature 36.6 C 36.8 C Pulse Rate 91 87 83 Respiratory Rate 18 20 Blood Pressure 113/86 121/88 132/92 H Pulse Oximetry 96 Oxygen Delivery 11/04/22 08:40 11/04/22 09:00 11/04/22 09:20 Temperature Pulse Rate 88 80 91 Respiratory Rate Blood Pressure 129/102 H 138/102 H 122/98 H Pulse Oximetry Oxygen Delivery 11/04/22 09:40 11/04/22 10:00 11/04/22 10:20 Temperature Pulse Rate 92 93 93 Respiratory Rate Blood Pressure 133/96 H 114/91 H 123/88 Pulse Oximetry Oxygen Delivery 11/04/22 10:40 11/04/22 11:00 11/04/22 11:20 Temperature Pulse Rate 95 98 101
[2022-11-04] MEDS: FAMOTIDINE 20 MG TABLET PO (12:02)
[2022-11-04] MEDS: APIXABAN 2.5 MG TABLET PO (12:02)
[2022-11-04] MEDS: FLUTICASONE PROPIONATE 0.05% NA SPR 16 GM BTL (*BKC) 1 SPRAY NASAL (12:02)
[2022-11-04] MEDS: FLUDROCORTISONE ACETATE 0.1 MG TABLET PO (12:02)
[2022-11-04] MEDS: MIDODRINE HCL 2.5 MG TABLET 5 MG PO (12:02)
[2022-11-04] MEDS: CALCIUM ACETATE 667 MG TABLET 1334 MG PO (12:03)
[2022-11-04] MEDS: NYSTATIN 100,000 UNITS/ML SUSP 5 ML ORAL.SUSP PO (12:03)
[2022-11-04] MEDS: PANTOPRAZOLE 40 MG TABLET PO (12:03)
[2022-11-04] MEDS: LIDOCAINE 5% PATCH 1 PATCH TRANSDERM ×2 (12:03)
[2022-11-04] MEDS: HYDROcodone/acetaminophen (*CRX) 5-325 MG TABLET 1 TAB PO (12:05)
--- NOTE | 2022-11-05 13:42 | W.PM.PROC2 ---
Procedure Note - Detailed Date of Procedure 11/05/22 Pre-op Diagnosis Hypotension, Weakness Post-op Diagnosis Same Procedure Performed Left Knee Aspiration/Injection Surgeon Estrellita Esposito, JARAD Anesthesia Local Description of Procedure Left knee prepped with sterile technique. Aspiration/injection performed. See procedure notes for details. Joint Aspiration/Injection Pre-Procedure Pre-procedure care: Consent was obtained, Procedures/risks were explained, Questions were answered, Correct patient identified and Correct side and site confirmed Position Position: Laying Site Prepped Technique: sterile technique Anesthetic: lidocaine 1% plain 18 gauge Injection Details left arthrocentesis major joint Knee joint Manual palpation Fluid: Serosanguinous Fluid Withdrawn (mL): 95 Comments:: 80mg (1mL) of Depo injected into the left knee joint s/p aspiration. Sterile Dressing Pressure Improvement by site: Moderate Post Procedure Patient tolerated the procedure well?: Tolerated procedure well Urine Output 100 Drains Yes Packing Yes Pathology Yes Complications None Condition Stable Disposition Same day
[2022-11-07 20:50] LABS: ANCA Screen Negative (Negative)
[2022-11-08 01:44] LABS: Hepatitis Be Antibody Nonreactive
== END 2022-11-04 16:09 | disposition home health service (06) ==
LOC: ANHED 19:07 → ANH3MED 19:41
PROVIDERS: Internal Medicine Nephrology; Nurse Practitioner; Admitting Provider Internal Medicine; Emergency Provider Emergency Medicine; PCP Family Medicine; Visit Provider Family Medicine
DX: I95.9 Hypotension, unspecified (principal); R53.1 Weakness; I13.0 Hypertensive heart and chronic kidney disease with heart failure and stage 1 through stage 4 chronic kidney disease, or unspecified chronic kidney disease; D63.1 Anemia in chronic kidney disease; N18.6 End stage renal disease; Z99.2 Dependence on renal dialysis; N05.9 Unspecified nephritic syndrome with unspecified morphologic changes; N25.0 Renal osteodystrophy; M17.12 Unilateral primary osteoarthritis, left knee; M25.462 Effusion, left knee; W19.XXXA Unspecified fall, initial encounter; R19.7 Diarrhea, unspecified; I48.91 Unspecified atrial fibrillation; I48.92 Unspecified atrial flutter; R06.00 Dyspnea, unspecified; E78.5 Hyperlipidemia, unspecified; M31.7 Microscopic polyangiitis; G47.33 Obstructive sleep apnea (adult) (pediatric); Z99.89 Dependence on other enabling machines and devices; R94.31 Abnormal electrocardiogram [ECG] [EKG]; I35.0 Nonrheumatic aortic (valve) stenosis; E66.01 Morbid (severe) obesity due to excess calories; Z68.36 Body mass index [BMI] 36.0-36.9, adult; J84.9 Interstitial pulmonary disease, unspecified; G47.00 Insomnia, unspecified; Z77.22 Contact with and (suspected) exposure to environmental tobacco smoke (acute) (chronic); M06.9 Rheumatoid arthritis, unspecified; Z87.891 Personal history of nicotine dependence; Z86.718 Personal history of other venous thrombosis and embolism; Z79.01 Long term (current) use of anticoagulants; Z79.891 Long term (current) use of opiate analgesic; Z79.899 Other long term (current) drug therapy; Z82.49 Family history of ischemic heart disease and other diseases of the circulatory system
CPT/HCPCS: 20610; 36415; 71046; 73562; 80053; 80069; 82533; 83735; 84443; 85025; 86036; 86705; 86707; 87040; 87340; 93005; 93306; 97161; 97165; 99285; A9270; G0257; G0378; J0834; J1644; J7030; P9047; Q5105

== ENCOUNTER 2022-11-27 09:16 | Observation (INO) | payer MEDICARE, SELFPAY ==
[2022-11-27] VITALS (36 sets, daily range): BP systolic 101–132; BP diastolic 60–96; PULSE 73–148; RESP 14–28; TEMP 35.6–37; O2SAT 89–99; BMI 35.0
--- NOTE | ~2022-11-27 | XR_ITS ---
XR chest 1V portable DATE: 11/27/2022 09:56 INDICATION: Arrhythmia TECHNIQUE: Portable upright AP chest on 11/27/2022 at 0941 hours COMPARISON: 10/31/2022 AP and lateral chest FINDINGS: Left internal jugular dialysis catheter, tip overlying superior vena cava, unchanged in pos ition since 10/31/2022. Mild elevation of left diaphragm, improved since 10/31/2022. There are patchy infiltrates and/atelectasis involving the left mid and both lower lung zones. No pleural effusion is evident. No pneumothorax. Heart size is not optimally measured AP projection because of magnification. Is aortic arch calcifica tion and some aortic unfolding. Osteopenia. Osteoarthritic change at the glenohumeral joints, especially on the right. Probable bilat eral chronic rotator cuff atrophy. IMPRESSION: Patchy bilateral mid and lower lung zone infiltrates Reviewed, dictated and finalized at location A.
[2022-11-27] MEDS: dilTIAZem HCl INJ 25 MG/5 ML VIAL 10 MG IV PUSH ×2 (09:45→10:33)
[2022-11-27 09:54] LABS: Basophils Absolute Auto 0.1 K/mm3 (0.0-0.1); Basophils Percent Auto 1.1 % (0.2-1.2); Eosinophils Percent Auto 0.1 % (0-4.4); Hematocrit 35.4 % (42.0-52.0); Hemoglobin 11.3 g/dL (14.0-18.0); Immature Granulocyte Absolute 0.08 K/mm3 (0.00-0.031); Immature Granulocyte Percent A 1.1 % (0-0.5); Lymphocytes Absolute Auto 0.55 K/mm3 (0.9-3.2); Lymphocytes Percent Auto 7.4 % (18.3-44.2); Mean Corpuscular HGB Conc 31.9 g/dl (32-36); Mean Corpuscular Hemoglobin 32.8 pg (26-34); Mean Corpuscular Volume 102.6 fl (80-100); Mean Platelet Volume 9.8 fl (7.4-10.4); Monocytes Absolute Auto 0.8 K/mm3 (0.1-0.6); Monocytes Percent Auto 10.1 % (2.6-8.5); Neutrophils Percent Auto 80.2 % (45.5-73.1); Nucleated Red Blood Cells Perc 0.3 % (0.0-0.2); Platelet Count Result 166 k/mm3 (150-375); Red Blood Count 3.45 M/mm3 (4.6-6.20); Red Cell Distribution Width 14.8 % (11.5-14.5); White Blood Count 7.4 K/mm3 (4.5-10.0)
[2022-11-27 10:03] LABS: Alanine Aminotransferase 20 U/L (6-50); Albumin Level 3.4 g/dL (3.5-5.1); Alkaline Phosphatase 100 U/L (38-126); Anion Gap 16 mmol/L (8-16); Aspartate Amino Transferase 28 U/L (17-59); Blood Urea Nitrogen 48 mg/dL (9-20); Calcium 9.2 mg/dL (8.4-10.2); Carbon Dioxide 21 mmol/L (22-30); Chloride 98 mmol/L (98-107); Estimated CRCL calculation 9 ml/min; Estimated Glomerular Filt Rate 6; Glucose 91 mg/dL (65-110); Sodium 135 mmol/L (137-145)
[2022-11-27 10:06] LABS: INR 1.7; Prothrombin Time 20.7 Seconds (11.1-14.7)
[2022-11-27 10:07] LABS: Partial Thromboplastin Time 42.3 SECONDS (22.3-36.8)
[2022-11-27 10:12] LABS: NT Pro B Type Natriuretic Pept > 30000 pg/mL (19.9-100)
[2022-11-27 10:18] LABS: Troponin I 0.166 ng/mL (0.000-0.034)
--- NOTE | 2022-11-27 10:33 | ED.GENADULT ---
HPI - General Adult General Chief complaint: Weakness Stated complaint: weakness Time Seen by Provider: 11/27/22 09:29 History of Present Illness HPI narrative: Patient is an 82-year-old male who presents ER with weakness. He was attempting to get up with the help of his assisted living team and cannot stand. EMS arrived patient was in A-fib with RVR. He was also found to be hypoxic. Currently 88% on room air. No chest pain or chest pressure. Patient gets dialysis Tuesday//Tuesday and is due for dialysis today. His lead operator is Dr. Haynes. He denies any fevers or chills or sweats. No abdominal discomfort. He did not fall or strike his head. Related Data Home Medications Medication Instructions Recorded Confirmed pantoprazole 40 mg tablet,delayed 40 mg PO QAM 09/24/22 11/27/22 release tramadol 50 mg tablet 50 mg PO Q6-8H PRN Pain 10/31/22 11/27/22 Allergies Allergy/AdvReac Type Severity Reaction Status Date / Time camphor [From Biofreeze] Allergy Intermediate Hives Verified 11/27/22 09:56 menthol [From Biofreeze] Allergy Intermediate Hives Verified 11/27/22 09:56 Review of Systems Review of Systems: All systems reviewed & are unremarkable except as noted in HPI and below Constitutional: Constitutional: Denies chills, Reports fatigue, Denies fever(s) and Reports weakness ENT: Denies nasal congestion and Denies sore throat Cardiovascular: Cardiovascular: Denies chest pain, Denies rapid heart rate and Denies radiating jaw, neck or arm pain Respiratory: Respiratory: Denies cough and Reports dyspnea Gastrointestinal: Gastrointestinal: Denies abdominal pain, Denies nausea and Denies vomiting [facility] Past Medical History Medical History Atrial fibrillation Chronic anemia Deep venous thrombosis Degenerative joint disease End-stage renal disease on hemodialysis Gastric ulcer Heart failure with preserved ejection fraction Echocardiogram in 10/2022 showed normal LV chamber size with hyperdynamic function EF estimated greater than 70% with mild concentric increased LVH and abnormal diastolic function with biatrial enlargement and severe aortic valve stenosis. Hyperlipidemia Hypertension Insomnia Osteoarthritis Rheumatoid arthritis Severe aortic valve stenosis On echo in 10/2022 with a valve area of 0.6 cm2. Surgical History Surgical History History of arthroscopy of right knee History of arthroscopy of right shoulder History of circumcision (2005) For phimosis, pathology showed lichen sclerosis. History of colonoscopy with polypectomy (02/2006) History of esophagogastroduodenoscopy History of repair of right rotator cuff (06/2008) History of tonsillectomy and adenoidectomy History of total knee replacement History of total knee replacement Status post right rotator cuff repair Family History Family History Father Heart failure Father Family history of liver disease Diabetes mellitus Family history of kidney disease Mother Family history of diabetes mellitus in first degree relative Diabetes mellitus Family history of renal failure Other Family history of gout Hypertension Social History Social History Social History: Healthcare power of associate attorney: Michell Palomino. Code status: Full code. Smoking packs per day: 0.5 Smoking cigarettes per day: 10.0 Years smoked: 15 Smoking pack-years: 7.50 Smoking status: Former smoker Tobacco type: cigarettes Second hand tobacco smoke exposure: No Smoking end date: 05/16/17 Alcohol intake: former Alcohol use details: Rare alcohol use in moderation. Substance use: never Substance use type: does not use Other substance usage details: alcohol - very rare Lack of Transportation: No Lack of Food: Isak
--- NOTE | 2022-11-27 10:54 | ECG_ITS ---
Measurements Intervals [place] Rate: 149 P: VA: 0 QRS: -39 QRSD: 106 T: 32 QT: 283 QTc: 446 Interpretive Statements ATRIAL FIBRILLATION WITH RAPID VENTRICULAR RESPONSE LEFT AXIS DEVIATION BASELINE ARTIFACT- I, AVR, AVL ABNORMAL ECG COMPARED TO ECG 10/31/2022 18:05:46 HEART RATE HAS INCREASED LEFT-AXIS DEVIATION NOW PRESENT Electronically Signed On 11-27-2022 18:17:11 CDT by Luca Kaufman D.O.
[2022-11-27] MEDS: dilTIAZem 100 MG/100 ML 100 MG/100 ML BAG IV CONT (11:00)
--- NOTE | 2022-11-27 12:48 | ADMGEN ---
This patient, Arthur Cantor Jr., was admitted to IMU Room 206-02. Patient/family oriented to hospital policies and general routines including ID bracelet, bed and alarms, visiting hours, pain management, procedures, bathroom and other care routines, personal items, smoking policy, room service/diet, and visiting hours. Information on how to activate the Rapid Response Team has been discussed. Patient/Family are encouraged to report perceived risks to care and to ask questions if they do not understand what they are told or what they should do.
--- NOTE | 2022-11-27 13:01 | PM.IMHP ---
H&P: HPI History of Present Illness Date/Time: 11/27/22 13:45 Chief Complaint: Weakness. Narrative: This is an 82-year-old male with multiple medical problems including paroxysmal atrial fibrillation on chronic anticoagulation, severe aortic stenosis by echocardiogram in 10/2022, heart failure with preserved ejection fraction, hypertension, hyperlipidemia, end-stage renal disease on hemodialysis, anemia, and other comorbidities who presented to the emergency department via EMS from assisted living at [facility] for evaluation of weakness. The patient provides the following history. He has not been feeling well for a couple of weeks with frequent nausea, dry heaves, poor appetite, bloating, and belching. Symptoms seemed to have gotten worse over the past couple of days and today he was so weak that he needed help to stand up. He was due for dialysis today but skipped that and came to the ER. He denies fever, headache, sinus congestion, sore throat, vomiting, and diarrhea. He also denies chest pain, pleuritic pain, and palpitations. He was afebrile with stable blood pressures on arrival to the ED. EKG showed atrial fibrillation with rapid ventricular response for which he has been started on a diltiazem drip. Preliminary workup in the ED was significant for relatively stable CBC and CMP compared to previous labs with no significant electrolyte abnormalities, elevated troponin proBNP, and chest x-ray showing bilateral mid and lower lung zone infiltrates. He is being admitted in this setting for further treatment. Review of Systems Review of Systems: Twelve systems were reviewed and are negative except for as per HPI. [facility] Past Medical History Medical History Atrial fibrillation Chronic anemia Deep venous thrombosis Degenerative joint disease End-stage renal disease on hemodialysis Gastric ulcer Heart failure with preserved ejection fraction Echocardiogram in 10/2022 showed normal LV chamber size with hyperdynamic function EF estimated greater than 70% with mild concentric increased LVH and abnormal diastolic function with biatrial enlargement and severe aortic valve stenosis. Hyperlipidemia Hypertension Insomnia Osteoarthritis Rheumatoid arthritis Severe aortic valve stenosis On echo in 10/2022 with a valve area of 0.6 cm2. Surgical History Surgical History History of arthroscopy of right knee History of arthroscopy of right shoulder History of circumcision (2005) For phimosis, pathology showed lichen sclerosis. History of colonoscopy with polypectomy (02/2006) History of esophagogastroduodenoscopy History of repair of right rotator cuff (06/2008) History of tonsillectomy and adenoidectomy History of total knee replacement History of total knee replacement Status post right rotator cuff repair Family History Family History Father Heart failure Father Family history of liver disease Diabetes mellitus Family history of kidney disease Mother Family history of diabetes mellitus in first degree relative Diabetes mellitus Family history of renal failure Other Family history of gout Hypertension Social History Social History Social History: Healthcare power of government instructor: Michell Palomino. Code status: Full code. Smoking packs per day: 0.5 Smoking cigarettes per day: 10.0 Years smoked: 15 Smoking pack-years: 7.50 Smoking status: Former smoker Tobacco type: cigarettes Second hand tobacco smoke exposure: No Smoking end date: 05/16/17 Alcohol intake: former Alcohol use details: Rare alcohol use in moderation. Substance use: never Substance use type: does not use Other substance usage details: alcohol - very rare Lack of Transportation: No Lack of Food: N
--- NOTE | 2022-11-27 13:28 | PM.CNNEP ---
Assessment and Plan Assessment and plan (1) End-stage renal disease on hemodialysis: Code(s): N18.6 - End stage renal disease; Z99.2 - Dependence on renal dialysis Status: Acute Assessment and Plan: the patient has end-stage renal disease. This is due to microscopic polyangiitis. He is due for dialysis today. His potassium is 5 so will do him on a 2 K bath. He does have some fluid on board so remove some fluid if tolerated. (2) Atrial fibrillation with rapid ventricular response: Code(s): I48.91 - Unspecified atrial fibrillation Status: Acute Assessment and Plan: The patient has atrial fibrillation with rapid ventricular response. He is getting IV diltiazem. His pulse is still 116. (3) Anemia: Code(s): D64.9 - Anemia, unspecified Status: Chronic Assessment and Plan: Hemoglobin is 11.3. No need for EPO at this point. (4) Weakness: Code(s): R53.1 - Weakness Status: Acute Assessment and Plan: The patient's weakness is most likely related to chronic deconditioning but also due to the atrial fibrillation with rapid ventricular response. (5) HTN (hypertension): Code(s): I10 - Essential (primary) hypertension Status: Chronic Assessment and Plan: Blood pressure is under good control (6) Diastolic dysfunction: Code(s): I51.89 - Other ill-defined heart diseases Status: Acute History of Present Illness Reason for Consult Consult date: 11/27/22 Chief Complaint Chief complaint: esrd with volume overload,afib with rvr,hypoxia History of Present Illness Narrative: Arthur is a very pleasant gentleman who has multiple medical problems including end-stage renal disease on dialysis 3 times a week on Tuesdays and Saturdays, heart disease with severe aortic stenosis, diastolic dysfunction, atrial fibrillation, hypertension, hyperlipidemia, rheumatoid arthritis, osteoarthritis, gastric ulcer, anemia, and renal osteodystrophy. The patient came in the hospital because he was weak. He says that he set his alarm to wake in for dialysis and he had a hard time getting out of bed. He ended up missing his transportation. He was able to get from the bed to the scooter and scoot over to the bathroom but the scooter does not fit through the bathroom door. So he uses his Rollator to get to the commode. he finished with the commode and tried to stand up but was unable to On the 1st try but was able to get to his Rollator and then walked over to this scooter but then partially fell because he was weak. A nurse metallurgical laboratory assistant helped him to the floor and then called 911. They asked him if he needed to go to the hospital he said yes so they brought him to the ER. In the ER is found to be weak. He was due for dialysis so he was admitted to the hospital. the patient has been weak for a while. Physical therapy was ordered and they just saw him yesterday and gave him some exercises to get his core and legs stronger. he denies any chest pain or shortness of breath. No skin rash or joint pains. No pain anywhere else. Review of Systems Constitutional: Constitutional: Reports no additional constitutional complaints Eyes: Eyes: Reports no additional eye complaints ENT: Reports system reviewed and no additional complaints, except as documented Cardiovascular: Cardiovascular: Reports no additional cardiovascular complaints Respiratory: Respiratory: Reports no additional respiratory complaints Gastrointestinal: Gastrointestinal: Reports no additional gastrointestinal complaints Genitourinary: Genitourinary: Reports no additional male genitourinary complaints Musculoskeletal: Musculoskeletal: Reports no additional musculoskeletal complaints Integumentary/Breasts: Skin/Breast: Reports system reviewed and no additional complaints, except as docu Neurologic: Reports system reviewed and no additional complaint
--- NOTE | 2022-11-27 13:44 | PC.NURSE ---
Call placed to [facility] and pt's family for medication list. No answer from both. Will attempt again to get updated medication list.
[2022-11-27 16:03] LABS: Hepatitis B Surface Antigen Negative (Negative)
[2022-11-27 16:20] LABS: Hepatitis B Surface Anti Res Negative
--- NOTE | 2022-11-27 18:32 | PM.CNCAR ---
Assessment and Plan Assessment and plan (1) Generalized weakness: Code(s): R53.1 - Weakness Status: Acute Assessment and Plan: Due to combination of atrial fibrillation with RVR, severe aortic stenosis, deconditioned state. (2) Atrial fibrillation with rapid ventricular response: Code(s): I48.91 - Unspecified atrial fibrillation Status: Acute Assessment and Plan: This is chronic. Rate control. Currently on Diltiazem drip at 5 mg/hr. Start Metoprol tartate 25 mg PO every 6 hours, with parameters. (3) Heart failure with preserved ejection fraction: Code(s): I50.30 - Unspecified diastolic (congestive) heart failure Status: Acute Assessment and Plan: Volume status managed with dialysis. (4) Severe aortic valve stenosis: Code(s): I35.0 - Nonrheumatic aortic (valve) stenosis Status: Acute Assessment and Plan: 11/01/22 Echo: EF >70%, mild LVH, diastolic dysfunction with E/e' 11, mod LAE, mild SHARON, severe (peak velocity 3.1 m/s, mean 25 mmHg, JEET 0.6 cm2), trace TR. Discuss need for aortic valve replacement and he is agreeable to it. This can be worked up as an outpatient and then will need referral to tertiary center for it. 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 Reports that for last several 2 weeks he has gotten progressively weaker. This morning he was able to get to restroom but after finishing he was not able to get back on his scooter. Therefore ambulance was called and brought him to ER. He missed his dialysis session today which he normally has on //Tue. He is coughing and states he has bronchitis and therefore has sob. Admits to snoring, wakes up once and has daytime sleepiness. He refused sleep study.? Denies chest pain, PND, palpitations, dizziness. Cardiovascular Procedures Echo/MUGA:: 05/19/21 Echo: EF 50-55%, mild LVH, e' .09 s/o diastolic dysfunction, mild RV hypokinesis with TAPSE 1.4 cm, mod biatrial enlargement, mod (JEET 1.3 cm2), trace MR. Electrophysiology:: 05/18/21 EKG: Atrial fibrillation at 102 bpm. Review of Systems Review of Systems: All systems reviewed & are unremarkable except as noted in HPI and below Constitutional: Constitutional: Reports as per HPI, Denies chills, Reports fatigue and Denies fever(s) Cardiovascular: Cardiovascular: Reports as per HPI, Denies chest pain, Denies irregular heart rhythm, Reports leg edema and Denies lightheadedness Respiratory: Respiratory: Reports as per HPI and Reports dyspnea Gastrointestinal: Gastrointestinal: Reports as per HPI and Denies abdominal pain Genitourinary: Genitourinary: Reports as per HPI and Denies dysuria Musculoskeletal: Musculoskeletal: Reports as per HPI Neurologic: Reports as per HPI, Denies dizziness and Denies syncope PENDING SALE TO [facility] Past Medical History Medical History Atrial fibrillation Chronic anemia Deep venous thrombosis Degenerative joint disease End-stage renal disease on hemodialysis Gastric ulcer Heart failure with preserved ejection fraction Echocardiogram in 10/2022 showed normal LV chamber size with hyperdynamic function EF estimated greater than 70% with mild concentric increased LVH and abnormal diastolic function with biatrial enlargement and severe aortic valve stenosis. Hyperlipidemia Hypertension Insomnia Osteoarthritis Rheumatoid arthritis Severe aortic valve stenosis On echo in 10/2022 with a valve area of 0.6 cm2. Surgical History Surgical History History of arthroscopy of right knee History of arthroscopy of rig
[2022-11-27] MEDS: dilTIAZem 100 MG/100 ML 100 MG/100 ML BAG 10 MG IV CONT (21:30)
[2022-11-27] MEDS: APIXABAN 2.5 MG TABLET PO (23:46)
[2022-11-27] MEDS: METOPROLOL TARTRATE 25 MG TABLET PO (23:46)
[2022-11-27] MEDS: NYSTATIN 100,000 UNITS/ML SUSP 5 ML ORAL.SUSP PO (23:46)
[2022-11-27] MEDS: FLUTICASONE PROPIONATE 0.05% NA SPR 16 GM BTL (*BKC) 1 SPRAY NASAL (23:47)
[2022-11-28] VITALS (18 sets, daily range): BP systolic 90–125; BP diastolic 66–97; PULSE 82–126; RESP 16–20; TEMP 36.2–37.2; O2SAT 92–100
[2022-11-28 04:39] LABS: Hematocrit 33.3 % (42.0-52.0); Hemoglobin 10.4 g/dL (14.0-18.0); Mean Corpuscular HGB Conc 31.2 g/dl (32-36); Mean Corpuscular Hemoglobin 32.7 pg (26-34); Mean Corpuscular Volume 104.7 fl (80-100); Mean Platelet Volume 9.5 fl (7.4-10.4); Platelet Count Result 145 k/mm3 (150-375); Red Blood Count 3.18 M/mm3 (4.6-6.20); Red Cell Distribution Width 14.7 % (11.5-14.5); White Blood Count 7.3 K/mm3 (4.5-10.0)
[2022-11-28 05:00] LABS: Anion Gap 6 mmol/L (8-16); Blood Urea Nitrogen 34 mg/dL (9-20); Calcium 8.2 mg/dL (8.4-10.2); Carbon Dioxide 29 mmol/L (22-30); Chloride 101 mmol/L (98-107); Estimated CRCL calculation 12 ml/min; Estimated Glomerular Filt Rate 9; Glucose 102 mg/dL (65-110); Magnesium 2.2 mg/dL (1.6-2.3); Phosphorus 3.6 mg/dL (2.5-4.5); Potassium 4.2 mmol/L (3.4-5.0); Sodium 136 mmol/L (137-145)
[2022-11-28] MEDS: TOBRAMYCIN SULFATE 0.3% OPHTH SOLN 5 ML 1 DROP EACH EYE ×5 (05:31→20:43)
[2022-11-28] MEDS: FAMOTIDINE 20 MG TABLET PO ×2 (08:36→16:58)
[2022-11-28] MEDS: OPTI-GEN TAB 1 TABLET PO (08:36)
[2022-11-28] MEDS: CALCIUM ACETATE 667 MG TABLET 1334 MG PO ×3 (08:36→16:58)
[2022-11-28] MEDS: OMEGA 3 POLYUNSAT FATTY ACIDS 1 GM CAP PO (08:36)
[2022-11-28] MEDS: PANTOPRAZOLE 40 MG TABLET PO (08:36)
[2022-11-28] MEDS: APIXABAN 2.5 MG TABLET PO ×2 (08:36→20:44)
[2022-11-28] MEDS: NYSTATIN 100,000 UNITS/ML SUSP 5 ML ORAL.SUSP PO ×4 (08:37→20:43)
[2022-11-28] MEDS: LIDOCAINE 5% PATCH 1 PATCH TRANSDERM (08:37)
[2022-11-28] MEDS: FLUTICASONE PROPIONATE 0.05% NA SPR 16 GM BTL (*BKC) 1 SPRAY NASAL ×2 (08:37→20:44)
[2022-11-28] MEDS: MIDODRINE HCL 2.5 MG TABLET 5 MG PO ×3 (08:37→16:58)
[2022-11-28] MEDS: METOPROLOL TARTRATE 50 MG TAB PO (08:37)
--- NOTE | 2022-11-28 08:41 | PM.PNCARD ---
Progress Note: A&P Assessment and Plan (1) Generalized weakness: Code(s): R53.1 - Weakness Status: Acute Assessment and Plan: Due to combination of atrial fibrillation with RVR, severe aortic stenosis, deconditioned state. (2) Atrial fibrillation with rapid ventricular response: Code(s): I48.91 - Unspecified atrial fibrillation Status: Acute Assessment and Plan: This is chronic. Rate control. Currently on Diltiazem drip at 5 mg/hr. Started Metoprol tartate 25 mg PO every 12 hours, with parameters. Stop Diltiazem drip. Increase Metoprolol Tartate 50 mg PO every 12 hours. (3) Heart failure with preserved ejection fraction: Code(s): I50.30 - Unspecified diastolic (congestive) heart failure Status: Acute Assessment and Plan: Volume status managed with dialysis. (4) Severe aortic valve stenosis: Code(s): I35.0 - Nonrheumatic aortic (valve) stenosis Status: Acute Assessment and Plan: 11/01/22 Echo: EF >70%, mild LVH, diastolic dysfunction with E/e' 11, mod LAE, mild SHARON, severe (peak velocity 3.1 m/s, mean 25 mmHg, JEET 0.6 cm2), trace TR. Discuss need for aortic valve replacement and he is agreeable to it. This can be worked up as an outpatient and then will need referral to tertiary center for it. Since patient is here for rate control of atrial fib, will obtain CHELI in AM to assess aortic stenosis more clearly. Keep NPO after midnight. Subjective Date/time seen: 11/28/22 08:42 Interval history: Had HD late last night. Feels weak. No chest pain or sob. Exam Const: General: cooperative, healthy appearing and comfortable Orientation/consciousness: oriented to person, oriented to place and oriented to time Resp: Auscultation: clear to auscultation bilaterally, no crackles, no rales, no rhonchi and no wheezes Cardio: Rate: regular rate Rhythm: abnormal rhythm Heart sounds: Murmur heart sound present (III/ systolic murmur RICS) Peripheral pulses: dorsalis pedis present Neuro: General: oriented to person, oriented to place and oriented to time Extrem: Right lower extremity: edema Left lower extremity: edema Other: Trace edema of legs Objective Data Vital Signs Vital Signs: Vital Signs - 24 hr 11/27/22 09:16 11/27/22 10:00 11/27/22 11:00 Temperature 98.0 F Pulse Rate 146 H 126 H Respiratory Rate 20 Blood Pressure 114/85 120/90 Pulse Oximetry 92 95 Oxygen Delivery Room Air Nasal Cannula Oxygen Flow Rate 2 Fraction of Inspired Oxygen 11/27/22 09:25 11/27/22 09:26 11/27/22 09:46 Temperature Pulse Rate 141 H 148 H 142 H Respiratory Rate 23 H 17 23 H Blood Pressure 114/85 104/74 Pulse Oximetry 90 89 L 97 Oxygen Delivery Oxygen Flow Rate Fraction of Inspired Oxygen 11/27/22 10:01 11/27/22 10:16 11/27/22 10:31 Temperature Pulse Rate 132 H 128 H 120 H Respiratory Rate 28 H 24 H 26 H Blood Pressure 112/80 104/90 125/88 Pulse Oximetry 96 99 98 Oxygen Delivery Oxygen Flow Rate Fraction of Inspired Oxygen 11/27/22 10:46 11/27/22 11:01 11/27/22 11:16 Temperature Pulse Rate 116 H 124 H 122 H Respiratory Rate 22 H 16 20 Blood Pressure 120/91 H 104/88 126/86 Pulse Oximetry 98 98 Oxygen Delivery Oxygen Flow Rate Fraction of Inspired Oxygen 11/27/22 11:31 11/27/22 11:46 11/27/22 12:07 Temperature Pulse Rate 120 H 115 H 112 H Respiratory Rate 23 H 23 H 18 Blood Pressure 124/96 H 111/88 101/60 Pulse Oximetry 99 95 96 Oxygen Delivery Oxygen Flow Rate Fraction of Inspired Oxygen 11/27/22 12:40 11/27/22 13:19 11/27/22 15:56 Temperature 97.7 F Pulse Rate 118 H 116 H 116 H Respiratory Rate 20 Blood Pressure 112/85 Pulse Oximetry 97 Oxygen Delivery Oxygen Flow Rate Fraction of Inspired Oxygen 11/27/22 16:00 11/27/22 16:37 11/27/22 16:00 Temperature 96.0 F L Pulse Rate 111 H 117 H 118 H Respiratory Rate 20 24 H Blood Pr
--- NOTE | 2022-11-28 10:41 | PM.IMPN ---
Progress Note: A&P Assessment and Plan (1) Atrial fibrillation with rapid ventricular response: Code(s): I48.91 - Unspecified atrial fibrillation Status: Acute (2) Elevated troponin: Code(s): R77.8 - Other specified abnormalities of plasma proteins Status: Acute (3) End-stage renal disease on hemodialysis: Code(s): N18.6 - End stage renal disease; Z99.2 - Dependence on renal dialysis Status: Acute (4) Heart failure with preserved ejection fraction: Code(s): I50.30 - Unspecified diastolic (congestive) heart failure Status: Acute (5) Severe aortic valve stenosis: Code(s): I35.0 - Nonrheumatic aortic (valve) stenosis Status: Acute (6) Nausea: Code(s): R11.0 - Nausea Status: Acute (7) Chronic anemia: Code(s): D64.9 - Anemia, unspecified Status: Acute Plan The patient presented to the emergency department for evaluation of weakness as detailed in HPI. Labs, imaging, EKG, and all reports were personally reviewed. He was found to be in atrial fibrillation with rapid ventricular response and he is currently on a diltiazem drip with improvement in his rate. He is due for dialysis today and Dr. Stringer has been consulted for orders. Echocardiogram ordered to evaluate the aortic valve which was read as having moderate stenosis last year. He is having frequent nausea, bloating, and belching which is similar to when he had ulcers earlier this year. He may have seen some dark stools a couple of weeks ago but nothing recently. Hemoglobin hematocrit are stable. Continue pantoprazole for now. Consider Carafate and/or GI consultation depending on his course of stay. His home medications will be reviewed and resumed as appropriate. Subjective Date/time seen: 11/28/22 10:41 Interval history: Still feeling weak. No chest pain or new complaints Exam Const: Other: Chronically ill-appearing gentleman lying on his left side in bed in no distress. Weight: 120.5 kg. BMI: 35.0. HENMT: Other: Normocephalic, atraumatic. Nares patent. Tacky mucous membranes. Eyes: Other: Pupils are reactive. Extraocular motions intact. Sclerae anicteric. Neck: Other: Supple. No JVD. Resp: Other: Respirations are nonlabored. Lungs are clear to auscultation. Cardio: Other: Irregularly irregular rate and rhythm. 3/6 systolic murmur at the right upper sternal border. GI: Other: Abdomen is soft and obese with positive bowel sounds. No significant tenderness to palpation. Skin: Other: Warm and dry. Neuro: Other: Alert. Cranial nerves 2-12 are grossly intact. No gross focal deficits to casual conversation. Extrem: Other: No cyanosis or clubbing. Trace bilateral lower extremity edema. Peripheral pulses intact. Objective Data Vital Signs Vital Signs: Vital Signs - 24 hr 11/27/22 11:00 11/27/22 10:46 11/27/22 11:01 Temperature Pulse Rate 126 H 116 H 124 H Respiratory Rate 22 H 16 Blood Pressure 120/90 120/91 H 104/88 Pulse Oximetry 98 98 Oxygen Delivery Oxygen Flow Rate Fraction of Inspired Oxygen 11/27/22 11:16 11/27/22 11:31 11/27/22 11:46 Temperature Pulse Rate 122 H 120 H 115 H Respiratory Rate 20 23 H 23 H Blood Pressure 126/86 124/96 H 111/88 Pulse Oximetry 99 95 Oxygen Delivery Oxygen Flow Rate Fraction of Inspired Oxygen 11/27/22 12:07 11/27/22 12:40 11/27/22 13:19 Temperature 97.7 F Pulse Rate 112 H 118 H 116 H Respiratory Rate 18 20 Blood Pressure 101/60 112/85 Pulse Oximetry 96 97 Oxygen Delivery Oxygen Flow Rate Fraction of Inspired Oxygen 11/27/22 15:56 11/27/22 16:00 11/27/22 16:37 Temperature 96.0 F L Pulse Rate 116 H 111 H 117 H Respiratory Rate 20 24 H Blood Pressure 120/86 Pulse Oximetry 97 96 Oxygen Delivery Nasal Cannula Oxygen Flow Rate 2 Fraction of Inspired Oxygen 11/27/22 16:00 11/27/22
--- NOTE | 2022-11-28 12:00 | PM.PNNEP ---
Progress Note: A&P Assessment and Plan (1) End-stage renal disease on hemodialysis: Code(s): N18.6 - End stage renal disease; Z99.2 - Dependence on renal dialysis Status: Acute Assessment and Plan: the patient has end-stage renal disease. This is due to microscopic polyangiitis. He had dialysis yesterday. About 2L was removed. He is due for dialysis on Tuesday. Volume status looks pretty good. Electrolytes are looking okay as well. (2) Atrial fibrillation with rapid ventricular response: Code(s): I48.91 - Unspecified atrial fibrillation Status: Acute Assessment and Plan: The patient had atrial fibrillation with rapid ventricular response. He is getting IV diltiazem. Heart rate is better (3) Anemia: Code(s): D64.9 - Anemia, unspecified Status: Chronic Assessment and Plan: Hemoglobin is 11.3. No need for EPO at this point. (4) Weakness: Code(s): R53.1 - Weakness Status: Acute Assessment and Plan: The patient's weakness is most likely related to chronic deconditioning but also due to the atrial fibrillation with rapid ventricular response. (5) HTN (hypertension): Code(s): I10 - Essential (primary) hypertension Status: Chronic Assessment and Plan: Blood pressure is under good control (6) Diastolic dysfunction: Code(s): I51.89 - Other ill-defined heart diseases Status: Acute Subjective Date/time seen: 11/28/22 12:00 Interval history: patient feels about the same today. His appetite is still poor. Review of Systems Cardiovascular: Cardiovascular: Reports no additional cardiovascular complaints Respiratory: Respiratory: Reports no additional respiratory complaints Gastrointestinal: Gastrointestinal: Reports no additional gastrointestinal complaints Genitourinary: Genitourinary: Reports no additional male genitourinary complaints Exam Narrative: WDWN in NAD skin no rash head ncat lungs clear cor reg no rub abd BS+ nontender and soft ext no edema. Objective Data Vital Signs Vital Signs: Vital Signs - 24 hr 11/27/22 12:07 11/27/22 12:40 11/27/22 13:19 Temperature 97.7 F Pulse Rate 112 H 118 H 116 H Respiratory Rate 18 20 Blood Pressure 101/60 112/85 Pulse Oximetry 96 97 Oxygen Delivery Oxygen Flow Rate Fraction of Inspired Oxygen 11/27/22 15:56 11/27/22 16:00 11/27/22 16:37 Temperature 96.0 F L Pulse Rate 116 H 111 H 117 H Respiratory Rate 20 24 H Blood Pressure 120/86 Pulse Oximetry 97 96 Oxygen Delivery Nasal Cannula Oxygen Flow Rate 2 Fraction of Inspired Oxygen 11/27/22 16:00 11/27/22 18:00 11/27/22 19:14 Temperature Pulse Rate 118 H 113 H Respiratory Rate Blood Pressure Pulse Oximetry Oxygen Delivery Oxygen Flow Rate 2 Fraction of Inspired Oxygen 11/27/22 19:14 11/27/22 19:26 11/27/22 19:40 Temperature 97.9 F Pulse Rate 107 H 113 H 119 H Respiratory Rate 16 Blood Pressure 114/77 112/80 118/88 Pulse Oximetry Oxygen Delivery Oxygen Flow Rate Fraction of Inspired Oxygen 11/27/22 20:00 11/27/22 20:20 11/27/22 20:40 Temperature Pulse Rate 98 78 88 Respiratory Rate Blood Pressure 120/90 126/87 124/85 Pulse Oximetry Oxygen Delivery Oxygen Flow Rate Fraction of Inspired Oxygen 11/27/22 20:40 11/27/22 21:00 11/27/22 21:20 Temperature Pulse Rate 88 128 H 133 H Respiratory Rate Blood Pressure 124/85 105/84 114/92 H Pulse Oximetry Oxygen Delivery Oxygen Flow Rate Fraction of Inspired Oxygen 11/27/22 21:40 11/27/22 22:00 11/27/22 22:29 Temperature Pulse Rate 106 H 97 83 Respiratory Rate Blood Pressure 101/86 132/95 H 110/88 Pulse Oximetry Oxygen Delivery Oxygen Flow Rate Fraction of Inspired Oxygen 11/27/22 23:09 11/27/22 21:30 11/27/22 23:46 Temperature 98.2 F Pulse Rate
[2022-11-28] MEDS: METOPROLOL TARTRATE 25 MG TABLET PO (20:44)
[2022-11-29] VITALS (23 sets, daily range): BP systolic 92–113; BP diastolic 55–93; PULSE 72–106; RESP 12–30; TEMP 36.2–36.5; O2SAT 92–100
[2022-11-29] MEDS: APIXABAN 2.5 MG TABLET PO ×2 (08:10→21:31)
[2022-11-29] MEDS: MIDODRINE HCL 2.5 MG TABLET 5 MG PO ×3 (08:10→17:54)
[2022-11-29] MEDS: PANTOPRAZOLE 40 MG TABLET PO (08:10)
[2022-11-29] MEDS: FAMOTIDINE 20 MG TABLET PO ×2 (08:10→17:54)
[2022-11-29] MEDS: METOPROLOL TARTRATE 25 MG TABLET PO ×2 (08:11→21:30)
[2022-11-29] MEDS: FLUTICASONE PROPIONATE 0.05% NA SPR 16 GM BTL (*BKC) 1 SPRAY NASAL ×2 (08:11→21:31)
[2022-11-29] MEDS: TOBRAMYCIN SULFATE 0.3% OPHTH SOLN 5 ML 1 DROP EACH EYE ×4 (08:14→21:31)
--- NOTE | 2022-11-29 08:19 | PM.PNNEP ---
Progress Note: A&P Assessment and Plan (1) End-stage renal disease on hemodialysis: Code(s): N18.6 - End stage renal disease; Z99.2 - Dependence on renal dialysis Status: Acute Assessment and Plan: the patient has end-stage renal disease. This is due to microscopic polyangiitis. Due for dialysis tomorrow. Volume status looks pretty good. Electrolytes have been looking okay as well. (2) Atrial fibrillation with rapid ventricular response: Code(s): I48.91 - Unspecified atrial fibrillation Status: Acute Assessment and Plan: The patient had atrial fibrillation with rapid ventricular response. He is getting metoprolol for rate control now. Heart rate is doing okay at 96 (3) Anemia: Code(s): D64.9 - Anemia, unspecified Status: Chronic Assessment and Plan: Hemoglobin is 11.3. No need for EPO at this point. Check another level tomorrow (4) Weakness: Code(s): R53.1 - Weakness Status: Acute Assessment and Plan: The patient's weakness is most likely related to chronic deconditioning but also due to the atrial fibrillation with rapid ventricular response. (5) HTN (hypertension): Code(s): I10 - Essential (primary) hypertension Status: Chronic Assessment and Plan: Blood pressure is under good control (6) Diastolic dysfunction: Code(s): I51.89 - Other ill-defined heart diseases Status: Acute Subjective Date/time seen: 11/29/22 08:19 Interval history: patient feels about the same today. Seems a little confused today about what time it is. His appetite is still poor but he is little bit hungrier today for breakfast. Exam Narrative: WDWN in NAD skin no rash or subQ nodules head ncat lungs clear bilaterally cor reg no rub abd BS+ nontender and soft ext no edema or cyanosis. Objective Data Vital Signs Vital Signs: Vital Signs - 24 hr 11/28/22 08:37 11/28/22 10:00 11/28/22 12:00 Temperature Pulse Rate 98 91 88 Respiratory Rate 20 Blood Pressure Pulse Oximetry 93 Oxygen Delivery Nasal Cannula Oxygen Flow Rate 2 11/28/22 12:00 11/28/22 12:00 11/28/22 16:00 Temperature 97.8 F Pulse Rate 86 82 109 H Respiratory Rate 20 Blood Pressure 95/79 L Pulse Oximetry 100 Oxygen Delivery Oxygen Flow Rate 07/16/23 16:00 11/28/22 16:00 11/28/22 18:00 Temperature 97.1 F L Pulse Rate 109 H 92 88 Respiratory Rate 20 20 Blood Pressure 125/97 H Pulse Oximetry 100 98 Oxygen Delivery Nasal Cannula Oxygen Flow Rate 2 11/28/22 20:44 11/28/22 20:00 11/28/22 20:00 Temperature 98.2 F Pulse Rate 94 90 Respiratory Rate 16 Blood Pressure 119/91 H Pulse Oximetry 98 98 Oxygen Delivery Nasal Cannula Oxygen Flow Rate 2 11/28/22 20:00 11/28/22 23:04 11/28/22 22:00 Temperature 99.0 F Pulse Rate 88 85 88 Respiratory Rate 16 Blood Pressure 102/66 Pulse Oximetry 92 Oxygen Delivery Oxygen Flow Rate 11/29/22 00:00 11/29/22 00:00 11/29/22 02:00 Temperature Pulse Rate 92 90 Respiratory Rate Blood Pressure Pulse Oximetry 92 Oxygen Delivery Nasal Cannula Oxygen Flow Rate 2 11/29/22 04:00 11/29/22 04:00 11/29/22 04:00 Temperature 97.7 F Pulse Rate 88 88 Respiratory Rate 20 Blood Pressure 102/55 L Pulse Oximetry 92 95 Oxygen Delivery Nasal Cannula Oxygen Flow Rate 2 11/29/22 06:00 11/29/22 08:00 11/29/22 08:11 Temperature 97.1 F L Pulse Rate 97 106 H 96 Respiratory Rate 22 H Blood Pressure 110/63 Pulse Oximetry 95 Oxygen Delivery Oxygen Flow Rate Intake/Output Intake/Output: Intake & Output 11/26/22 11/27/22 11/28/22 11/29/22 23:59 23:59 23:59 23:59 Intake Total 600 1560 100 Output Total 1999 100 200 Balance -1400 1460 -100 Meds/Results Medications: Active Medications Generic Name Dose Route Start Last Admin Trade Name Freq
--- NOTE | 2022-11-29 09:24 | PC.NURSE ---
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
--- NOTE | 2022-11-29 11:05 | PM.PNCARD ---
Progress Note: A&P Assessment and Plan (1) Generalized weakness: Code(s): R53.1 - Weakness Status: Acute Assessment and Plan: Due to combination of atrial fibrillation with RVR, severe aortic stenosis, deconditioned state. (2) Atrial fibrillation with rapid ventricular response: Code(s): I48.91 - Unspecified atrial fibrillation Status: Acute Assessment and Plan: This is chronic. Rate control. Continue Metoprol tartate 25 mg PO every 12 hours, with parameters. (3) Heart failure with preserved ejection fraction: Code(s): I50.30 - Unspecified diastolic (congestive) heart failure Status: Acute Assessment and Plan: Volume status managed with dialysis. (4) Severe aortic valve stenosis: Code(s): I35.0 - Nonrheumatic aortic (valve) stenosis Status: Acute Assessment and Plan: 11/01/22 Echo: EF >70%, mild LVH, diastolic dysfunction with E/e' 11, mod LAE, mild SHARON, severe (peak velocity 3.1 m/s, mean 25 mmHg, JEET 0.6 cm2), trace TR. Discuss need for aortic valve replacement and he is agreeable to it. This can be worked up as an outpatient and then will need referral to tertiary center for it. Attempted CHELI but patient had continuous coughing and unable to advance CHELI probe. Will reschedule CHELI with anesthesia for tomorrow. Subjective Date/time seen: 11/29/22 11:05 Interval history: Feels weak. No chest pain or sob. Exam Const: General: cooperative, healthy appearing and comfortable Orientation/consciousness: oriented to person, oriented to place and oriented to time Resp: Auscultation: clear to auscultation bilaterally, no crackles, no rales, no rhonchi, no wheezes and diminished lung sounds Cardio: Rate: regular rate Rhythm: abnormal rhythm Heart sounds: Murmur heart sound present (III/ systolic murmur RICS) Peripheral pulses: dorsalis pedis present Neuro: General: oriented to person, oriented to place and oriented to time Extrem: Right lower extremity: edema Left lower extremity: edema Other: Trace edema of legs Objective Data Vital Signs Vital Signs: Vital Signs - 24 hr 11/28/22 12:00 11/28/22 12:00 11/28/22 12:00 Temperature 97.8 F Pulse Rate 88 86 82 Respiratory Rate 20 20 Blood Pressure 95/79 L Pulse Oximetry 93 100 Oxygen Delivery Nasal Cannula Oxygen Flow Rate 2 11/28/22 16:00 11/28/22 16:00 11/28/22 16:00 Temperature 97.1 F L Pulse Rate 109 H 109 H 92 Respiratory Rate 20 20 Blood Pressure 125/97 H Pulse Oximetry 100 98 Oxygen Delivery Nasal Cannula Oxygen Flow Rate 2 11/28/22 18:00 11/28/22 20:44 11/28/22 20:00 Temperature 98.2 F Pulse Rate 88 94 90 Respiratory Rate 16 Blood Pressure 119/91 H Pulse Oximetry 98 Oxygen Delivery Oxygen Flow Rate 11/28/22 20:00 11/28/22 20:00 11/28/22 23:04 Temperature 99.0 F Pulse Rate 88 85 Respiratory Rate 16 Blood Pressure 102/66 Pulse Oximetry 98 92 Oxygen Delivery Nasal Cannula Oxygen Flow Rate 2 11/28/22 22:00 11/29/22 00:00 11/29/22 00:00 Temperature Pulse Rate 88 92 Respiratory Rate Blood Pressure Pulse Oximetry 92 Oxygen Delivery Nasal Cannula Oxygen Flow Rate 2 11/29/22 02:00 11/29/22 04:00 11/29/22 04:00 Temperature Pulse Rate 90 88 Respiratory Rate Blood Pressure Pulse Oximetry 92 Oxygen Delivery Nasal Cannula Oxygen Flow Rate 2 11/29/22 04:00 11/29/22 06:00 11/29/22 08:00 Temperature 97.7 F 97.1 F L Pulse Rate 88 97 106 H Respiratory Rate 20 22 H Blood Pressure 102/55 L 110/63 Pulse Oximetry 95 95 Oxygen Delivery Oxygen Flow Rate 11/29/22 08:11 11/29/22 08:00 11/29/22 08:00 Temperature Pulse Rate 96 98 Respiratory Rate Blood Pressure Pulse Oximetry Oxygen Delivery Room Air Oxygen Flow Rate 11/29/22 10:10 11/29/22 10:15 11/29/22 10:30 Temperature Pulse Rate 91 89 86 Respiratory Rate 27 H 30
--- NOTE | 2022-11-29 11:16 | PC.NURSE ---
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 No issues noted
--- NOTE | 2022-11-29 13:12 | PM.IMPN ---
Progress Note: A&P Assessment and Plan (1) Atrial fibrillation with rapid ventricular response: Code(s): I48.91 - Unspecified atrial fibrillation Status: Acute (2) Elevated troponin: Code(s): R77.8 - Other specified abnormalities of plasma proteins Status: Acute (3) End-stage renal disease on hemodialysis: Code(s): N18.6 - End stage renal disease; Z99.2 - Dependence on renal dialysis Status: Acute (4) Heart failure with preserved ejection fraction: Code(s): I50.30 - Unspecified diastolic (congestive) heart failure Status: Acute (5) Severe aortic valve stenosis: Code(s): I35.0 - Nonrheumatic aortic (valve) stenosis Status: Acute (6) Nausea: Code(s): R11.0 - Nausea Status: Acute (7) Chronic anemia: Code(s): D64.9 - Anemia, unspecified Status: Acute Plan The patient presented to the emergency department for evaluation of weakness as detailed in HPI. Labs, imaging, EKG, and all reports were personally reviewed. He was found to be in atrial fibrillation with rapid ventricular response and he is currently on a diltiazem drip with improvement in his rate. He is due for dialysis today and Dr. Stringer has been consulted. Echocardiogram ordered to evaluate the aortic valve which was read as having moderate stenosis last year. He is having frequent nausea, bloating, and belching which is similar to when he had ulcers earlier this year. He thinks he had dark stools a couple of weeks ago but nothing recently. Hemoglobin and hematocrit are stable; continue apixaban with close monitoring. Continue pantoprazole. Consider Carafate and/or GI consultation depending on his course of stay. His home medications will be reviewed and resumed as appropriate. Subjective Date/time seen: 11/29/22 13:12 Interval history: No complaints Exam Const: Other: Chronically ill-appearing gentleman lying on his left side in bed in no distress. Weight: 120.5 kg. BMI: 35.0. HENMT: Other: Normocephalic, atraumatic. Nares patent. Tacky mucous membranes. Eyes: Other: Pupils are reactive. Extraocular motions intact. Sclerae anicteric. Neck: Other: Supple. No JVD. Resp: Other: Respirations are nonlabored. Lungs are clear to auscultation. Cardio: Other: Irregularly irregular rate and rhythm. 3/6 systolic murmur at the right upper sternal border. GI: Other: Abdomen is soft and obese with positive bowel sounds. No significant tenderness to palpation. Skin: Other: Warm and dry. Neuro: Other: Alert. Cranial nerves 2-12 are grossly intact. No gross focal deficits to casual conversation. Extrem: Other: No cyanosis or clubbing. Trace bilateral lower extremity edema. Peripheral pulses intact. Objective Data Vital Signs Vital Signs: Vital Signs - 24 hr 11/28/22 16:00 11/28/22 16:00 11/28/22 16:00 Temperature 97.1 F L Pulse Rate 109 H 109 H 92 Respiratory Rate 20 20 Blood Pressure 125/97 H Pulse Oximetry 100 98 Oxygen Delivery Nasal Cannula Oxygen Flow Rate 2 11/28/22 18:00 11/28/22 20:44 11/28/22 20:00 Temperature 98.2 F Pulse Rate 88 94 90 Respiratory Rate 16 Blood Pressure 119/91 H Pulse Oximetry 98 Oxygen Delivery Oxygen Flow Rate 11/28/22 20:00 11/28/22 20:00 11/28/22 23:04 Temperature 99.0 F Pulse Rate 88 85 Respiratory Rate 16 Blood Pressure 102/66 Pulse Oximetry 98 92 Oxygen Delivery Nasal Cannula Oxygen Flow Rate 2 11/28/22 22:00 11/29/22 00:00 11/29/22 00:00 Temperature Pulse Rate 88 92 Respiratory Rate Blood Pressure Pulse Oximetry 92 Oxygen Delivery Nasal Cannula Oxygen Flow Rate 2 11/29/22 02:00 11/29/22 04:00 11/29/22 04:00 Temperature Pulse Rate 90 88 Respiratory Rate Blood Pressure Pulse Oximetry 92 Oxygen Delivery Nasal Cannula Oxygen Flow Rate 2 11/29/22 04:00 11/29/22
[2022-11-29] MEDS: CALCIUM ACETATE 667 MG TABLET 1334 MG PO ×2 (13:30→17:54)
[2022-11-29] MEDS: OMEGA 3 POLYUNSAT FATTY ACIDS 1 GM CAP PO (13:30)
[2022-11-29] MEDS: NYSTATIN 100,000 UNITS/ML SUSP 5 ML ORAL.SUSP PO ×3 (13:31→21:31)
[2022-11-29] MEDS: OPTI-GEN TAB 1 TABLET PO (13:31)
--- NOTE | 2022-11-29 16:15 | PCPTNOTE ---
On 11/29/22, the student, JUDIE Mills, provided care and completed [facility] documentation on this patient. I have reviewed the student's documentation and agree with the findings.
[2022-11-29] MEDS: HYDROcodone/acetaminophen (*CRX) 5-325 MG TABLET 1 TAB PO (21:29)
[2022-11-30] VITALS (25 sets, daily range): BP systolic 102–136; BP diastolic 67–101; PULSE 80–105; RESP 16–20; TEMP 36.1–37; O2SAT 93–100
[2022-11-30 05:19] LABS: Mean Corpuscular HGB Conc 31.4 g/dl (32-36); Mean Corpuscular Hemoglobin 32.7 pg (26-34); Mean Corpuscular Volume 104.2 fl (80-100); Mean Platelet Volume 9.9 fl (7.4-10.4); Platelet Count Result 170 k/mm3 (150-375); Red Blood Count 3.36 M/mm3 (4.6-6.20); Red Cell Distribution Width 15.1 % (11.5-14.5); White Blood Count 8.3 K/mm3 (4.5-10.0)
[2022-11-30 05:29] LABS: Albumin Level 2.8 g/dL (3.5-5.1); Anion Gap 9 mmol/L (8-16); Blood Urea Nitrogen 49 mg/dL (9-20); Calcium 8.4 mg/dL (8.4-10.2); Carbon Dioxide 26 mmol/L (22-30); Chloride 101 mmol/L (98-107); Estimated CRCL calculation 9 ml/min; Estimated Glomerular Filt Rate 7; Glucose 80 mg/dL (65-110); Phosphorus 4.1 mg/dL (2.5-4.5); Potassium 4.4 mmol/L (3.4-5.0); Sodium 136 mmol/L (137-145)
[2022-11-30] MEDS: FAMOTIDINE 20 MG TABLET PO ×2 (07:41→17:09)
[2022-11-30] MEDS: PANTOPRAZOLE 40 MG TABLET PO (07:41)
[2022-11-30] MEDS: MIDODRINE HCL 2.5 MG TABLET 5 MG PO ×3 (07:41→17:09)
[2022-11-30] MEDS: APIXABAN 2.5 MG TABLET PO ×2 (07:41→20:38)
[2022-11-30] MEDS: FLUTICASONE PROPIONATE 0.05% NA SPR 16 GM BTL (*BKC) 1 SPRAY NASAL ×2 (07:42→20:38)
[2022-11-30] MEDS: NYSTATIN 100,000 UNITS/ML SUSP 5 ML ORAL.SUSP PO ×4 (07:42→20:38)
--- NOTE | 2022-11-30 07:50 | PC.NURSE ---
Pt to dialysis via bed
--- NOTE | 2022-11-30 07:57 | PM.PNCARD ---
Progress Note: A&P Assessment and Plan (1) Generalized weakness: Code(s): R53.1 - Weakness Status: Acute Assessment and Plan: Due to combination of atrial fibrillation with RVR, severe aortic stenosis, deconditioned state. (2) Atrial fibrillation with rapid ventricular response: Code(s): I48.91 - Unspecified atrial fibrillation Status: Acute Assessment and Plan: This is chronic. Rate control. Continue Metoprol tartate 25 mg PO every 12 hours. (3) Heart failure with preserved ejection fraction: Code(s): I50.30 - Unspecified diastolic (congestive) heart failure Status: Acute Assessment and Plan: Volume status managed with dialysis. (4) Severe aortic valve stenosis: Code(s): I35.0 - Nonrheumatic aortic (valve) stenosis Status: Acute Assessment and Plan: 11/01/22 Echo: EF >70%, mild LVH, diastolic dysfunction with E/e' 11, mod LAE, mild SHARON, severe (peak velocity 3.1 m/s, mean 25 mmHg, JEET 0.6 cm2), trace TR. Discuss need for aortic valve replacement and he is agreeable to it. This can be worked up as an outpatient and then will need referral to tertiary center for it. Attempted CHELI but patient had continuous coughing and unable to advance CHELI probe. Rescheduled CHELI with anesthesia for today if feasible. Subjective Date/time seen: 11/30/22 07:57 Interval history: Feels weak. No chest pain or sob. Exam Const: General: cooperative, healthy appearing and comfortable Orientation/consciousness: oriented to person, oriented to place and oriented to time Resp: Auscultation: clear to auscultation bilaterally, no crackles, no rales, no rhonchi, no wheezes and diminished lung sounds Cardio: Rate: regular rate Rhythm: abnormal rhythm Heart sounds: Murmur heart sound present (III/ systolic murmur RICS) Peripheral pulses: dorsalis pedis present Neuro: General: oriented to person, oriented to place and oriented to time Extrem: Right lower extremity: edema Left lower extremity: edema Other: Trace edema of legs Objective Data Vital Signs Vital Signs: Vital Signs - 24 hr 11/29/22 08:00 11/29/22 08:11 11/29/22 08:00 Temperature 97.1 F L Pulse Rate 106 H 96 Respiratory Rate 22 H Blood Pressure 110/63 Pulse Oximetry 95 Oxygen Delivery Room Air Oxygen Flow Rate 11/29/22 08:00 11/29/22 10:10 11/29/22 10:15 Temperature Pulse Rate 98 91 89 Respiratory Rate 27 H 30 H Blood Pressure 105/90 108/93 H Pulse Oximetry 96 96 Oxygen Delivery Nasal Cannula Nasal Cannula Oxygen Flow Rate 3 3 11/29/22 10:30 11/29/22 10:45 11/29/22 09:50 Temperature Pulse Rate 86 72 91 Respiratory Rate 24 H 17 22 H Blood Pressure 94/76 L 94/73 L 101/85 Pulse Oximetry 96 92 98 Oxygen Delivery Room Air Room Air Nasal Cannula Oxygen Flow Rate 3 11/29/22 10:00 11/29/22 10:05 11/29/22 11:26 Temperature 97.4 F L Pulse Rate 94 95 84 Respiratory Rate 12 12 18 Blood Pressure 97/56 L 97/56 L 95/59 L Pulse Oximetry 98 95 100 Oxygen Delivery Nasal Cannula Room Air Oxygen Flow Rate 3 11/29/22 12:00 11/29/22 11:15 11/29/22 12:00 Temperature Pulse Rate 88 Respiratory Rate Blood Pressure Pulse Oximetry 100 100 Oxygen Delivery Nasal Cannula Nasal Cannula Oxygen Flow Rate 2 2 11/29/22 13:23 11/29/22 14:42 11/29/22 14:00 Temperature Pulse Rate 98 Respiratory Rate Blood Pressure Pulse Oximetry Oxygen Delivery Nasal Cannula Nasal Cannula Oxygen Flow Rate 2 2 11/29/22 15:52 11/29/22 16:00 11/29/22 16:00 Temperature 97.3 F L Pulse Rate 82 86 Respiratory Rate 18 Blood Pressure 113/76 Pulse Oximetry 100 100 Oxygen Delivery Room Air Oxygen Flow Rate 11/29/22 18:00 11/29/22 20:00 11/29/22 21:30 Temperature 97.2 F L Pulse Rate 98 99 99 Respiratory Rate 20 Blood Pressure 92/65 L Pulse Oximetry 95 Oxygen Delivery Oxygen Flow Rate 11/29/22 20:
[2022-11-30] MEDS: SODIUM CHLORIDE 0.9% IV 1,000 ML 999 ML IV CONT (08:46)
--- NOTE | 2022-11-30 09:46 | PCPTNOTE ---
The patient treatment was not able to be completed this morning on 11/30/2022 due to patient out of room for dialysis. Will plan to continue treatment per plan of care.
--- NOTE | 2022-11-30 10:56 | PCOTNOTE ---
The patient treatment was not able to be completed on 11/30 @10:56 due to patient being in dialysis. Will attempt again time permitting Will plan to continue treatment per plan of care.
--- NOTE | 2022-11-30 11:16 | PM.PNNEP ---
Progress Note: A&P Assessment and Plan (1) End-stage renal disease on hemodialysis: Code(s): N18.6 - End stage renal disease; Z99.2 - Dependence on renal dialysis Status: Acute Assessment and Plan: the patient has end-stage renal disease. This is due to microscopic polyangiitis. Dialysis underway Volume status looks pretty good. removing some fluid (2) Atrial fibrillation with rapid ventricular response: Code(s): I48.91 - Unspecified atrial fibrillation Status: Acute Assessment and Plan: The patient had atrial fibrillation with rapid ventricular response. He is getting metoprolol for rate control now. Heart rate is doing okay at 96 (3) Anemia: Code(s): D64.9 - Anemia, unspecified Status: Chronic Assessment and Plan: Hemoglobin is 11.. No need for EPO at this point. Check another level tomorrow (4) Weakness: Code(s): R53.1 - Weakness Status: Acute Assessment and Plan: The patient's weakness is most likely related to chronic deconditioning but also due to the atrial fibrillation with rapid ventricular response. (5) HTN (hypertension): Code(s): I10 - Essential (primary) hypertension Status: Chronic Assessment and Plan: Blood pressure is under good control (6) Diastolic dysfunction: Code(s): I51.89 - Other ill-defined heart diseases Status: Acute Subjective Date/time seen: 11/30/22 11:16 Interval history: patient feels about the same today. ON HD joelle it well. seen at 830am. removing some fluid Exam Narrative: WDWN in NAD skin no rash or subQ nodules head ncat lungs clear cor reg no rub or gallop abd BS+ nontender and soft ext no edema or cyanosis. Objective Data Vital Signs Vital Signs: Vital Signs - 24 hr 11/29/22 11:26 11/29/22 12:00 11/29/22 12:00 Temperature 97.4 F L Pulse Rate 84 88 Respiratory Rate 18 Blood Pressure 95/59 L Pulse Oximetry 100 100 Oxygen Delivery Nasal Cannula Oxygen Flow Rate 2 11/29/22 13:23 11/29/22 14:42 11/29/22 14:00 Temperature Pulse Rate 98 Respiratory Rate Blood Pressure Pulse Oximetry Oxygen Delivery Nasal Cannula Nasal Cannula Oxygen Flow Rate 2 2 11/29/22 15:52 11/29/22 16:00 11/29/22 16:00 Temperature 97.3 F L Pulse Rate 82 86 Respiratory Rate 18 Blood Pressure 113/76 Pulse Oximetry 100 100 Oxygen Delivery Room Air Oxygen Flow Rate 11/29/22 18:00 11/29/22 20:00 11/29/22 21:30 Temperature 97.2 F L Pulse Rate 98 99 99 Respiratory Rate 20 Blood Pressure 92/65 L Pulse Oximetry 95 Oxygen Delivery Oxygen Flow Rate 11/29/22 20:00 11/30/22 00:00 11/30/22 00:00 Temperature 97.5 F L Pulse Rate 99 Respiratory Rate 16 Blood Pressure 110/95 H Pulse Oximetry 95 94 94 Oxygen Delivery Room Air Room Air Oxygen Flow Rate 11/29/22 20:00 11/29/22 22:00 11/30/22 00:00 Temperature Pulse Rate 92 91 101 H Respiratory Rate Blood Pressure Pulse Oximetry Oxygen Delivery Oxygen Flow Rate 11/30/22 02:00 11/30/22 04:00 11/30/22 04:00 Temperature 97.0 F L Pulse Rate 93 86 82 Respiratory Rate 16 Blood Pressure 104/75 Pulse Oximetry 93 Oxygen Delivery Oxygen Flow Rate 11/30/22 04:00 11/30/22 06:00 11/30/22 07:55 Temperature 97.3 F L Pulse Rate 83 86 Respiratory Rate 20 Blood Pressure 122/68 Pulse Oximetry Oxygen Delivery Room Air Oxygen Flow Rate 11/30/22 08:04 11/30/22 08:20 11/30/22 08:00 Temperature 97.2 F L Pulse Rate 95 87 91 Respiratory Rate 18 Blood Pressure 121/84 120/91 H 102/85 Pulse Oximetry 100 Oxygen Delivery Oxygen Flow Rate 11/30/22 08:40 11/30/22 09:00 11/30/22 09:20 Temperature Pulse Rate 90 87 92 Respiratory Rate Blood Pressure 117/97 H 113/77 104/74 Pulse Oximetry Oxygen Delivery Oxygen Flow Rate 11/30/22
--- NOTE | 2022-11-30 12:00 | PC.NURSE ---
Pt returned from dialysis via bed. No issues noted
--- NOTE | 2022-11-30 12:04 | PM.IMPN ---
Progress Note: A&P Assessment and Plan (1) Atrial fibrillation with rapid ventricular response: Code(s): I48.91 - Unspecified atrial fibrillation Status: Acute Assessment and Plan: Heart rate controlled. (2) Elevated troponin: Code(s): R77.8 - Other specified abnormalities of plasma proteins Status: Acute Assessment and Plan: Monitor, appreciate Cardiology input. (3) End-stage renal disease on hemodialysis: Code(s): N18.6 - End stage renal disease; Z99.2 - Dependence on renal dialysis Status: Acute Assessment and Plan: Per Renal. (4) Heart failure with preserved ejection fraction: Code(s): I50.30 - Unspecified diastolic (congestive) heart failure Status: Acute Assessment and Plan: Prior echo reviewed. (5) Severe aortic valve stenosis: Code(s): I35.0 - Nonrheumatic aortic (valve) stenosis Status: Acute Assessment and Plan: Awaiting IBAN. (6) Nausea: Code(s): R11.0 - Nausea Status: Acute Assessment and Plan: Monitor (7) Chronic anemia: Code(s): D64.9 - Anemia, unspecified Status: Acute Assessment and Plan: Monitor (8) Weakness: Code(s): R53.1 - Weakness Status: Acute Assessment and Plan: Likely multifactorial with atrial fibrillation, aortic stenosis, end-stage renal disease. Waiting complete workup by Cardiology. Iban is planned for today. Subjective Date/time seen: 11/30/22 12:04 Interval history: No new complaints. Plan for IBAN today. Exam Const: Other: Chronically ill-appearing gentleman lying on his left side in bed in no distress. Weight: 120.5 kg. BMI: 35.0. HENMT: Other: Normocephalic, atraumatic. Nares patent. Tacky mucous membranes. Eyes: Other: Pupils are reactive. Extraocular motions intact. Sclerae anicteric. Neck: Other: Supple. No JVD. Resp: Other: Respirations are nonlabored. Lungs are clear to auscultation. Cardio: Other: Irregularly irregular rate and rhythm. 3/6 systolic murmur at the right upper sternal border. GI: Other: Abdomen is soft and obese with positive bowel sounds. No significant tenderness to palpation. Skin: Other: Warm and dry. Neuro: Other: Alert. Cranial nerves 2-12 are grossly intact. No gross focal deficits to casual conversation. Extrem: Other: No cyanosis or clubbing. Trace bilateral lower extremity edema. Peripheral pulses intact. Objective Data Vital Signs Vital Signs: Vital Signs - 24 hr 11/29/22 13:23 11/29/22 14:42 11/29/22 14:00 Temperature Pulse Rate 98 Respiratory Rate Blood Pressure Pulse Oximetry Oxygen Delivery Nasal Cannula Nasal Cannula Oxygen Flow Rate 2 2 11/29/22 15:52 11/29/22 16:00 11/29/22 16:00 Temperature 97.3 F L Pulse Rate 82 86 Respiratory Rate 18 Blood Pressure 113/76 Pulse Oximetry 100 100 Oxygen Delivery Room Air Oxygen Flow Rate 11/29/22 18:00 11/29/22 20:00 11/29/22 21:30 Temperature 97.2 F L Pulse Rate 98 99 99 Respiratory Rate 20 Blood Pressure 92/65 L Pulse Oximetry 95 Oxygen Delivery Oxygen Flow Rate 11/29/22 20:00 11/30/22 00:00 11/30/22 00:00 Temperature 97.5 F L Pulse Rate 99 Respiratory Rate 16 Blood Pressure 110/95 H Pulse Oximetry 95 94 94 Oxygen Delivery Room Air Room Air Oxygen Flow Rate 11/29/22 20:00 11/29/22 22:00 11/30/22 00:00 Temperature Pulse Rate 92 91 101 H Respiratory Rate Blood Pressure Pulse Oximetry Oxygen Delivery Oxygen Flow Rate 11/30/22 02:00 11/30/22 04:00 11/30/22 04:00 Temperature 97.0 F L Pulse Rate 93 86 82 Respiratory Rate 16 Blood Pressure 104/75 Pulse Oximetry 93 Oxygen Delivery Oxygen Flow Rate 11/30/22 04:00 11/30/22 06:00 11/30/22 07:55 Temperature 97.3 F L Pulse Rate 83 86 Respiratory Rate 20 Blood Pressure
[2022-11-30] MEDS: CALCIUM ACETATE 667 MG TABLET 1334 MG PO ×2 (12:53→17:09)
[2022-11-30] MEDS: OMEGA 3 POLYUNSAT FATTY ACIDS 1 GM CAP PO (12:53)
[2022-11-30] MEDS: METOPROLOL TARTRATE 25 MG TABLET PO ×2 (12:53→20:38)
[2022-11-30] MEDS: OPTI-GEN TAB 1 TABLET PO (12:53)
--- NOTE | 2022-11-30 13:20 | PCPTNOTE ---
Patient refused treatment this session. Patient reported he was exhausted from doing a lot of rolling in bed earlier and that his stomach hurts, and that he does not want to do therapy today. Educated patient on the importance of therapy and getting up out of bed. Patient continued to refuse.
--- NOTE | 2022-11-30 16:28 | PCPTNOTE ---
On 11/30/22, the student, JUDIE Mills, provided care and completed [facility] documentation on this patient. I have reviewed the student's documentation and agree with the findings.
[2022-12-01] VITALS (17 sets, daily range): BP systolic 85–146; BP diastolic 60–97; PULSE 80–105; RESP 14–27; TEMP 35.7–36.5; O2SAT 91–100
--- NOTE | 2022-12-01 07:42 | PM.PNCARD ---
Progress Note: A&P Assessment and Plan (1) Generalized weakness: Code(s): R53.1 - Weakness Status: Acute Assessment and Plan: Due to combination of atrial fibrillation with RVR, severe aortic stenosis, deconditioned state. (2) Atrial fibrillation with rapid ventricular response: Code(s): I48.91 - Unspecified atrial fibrillation Status: Acute Assessment and Plan: This is chronic. Rate control. Continue Metoprol tartate 25 mg PO every 12 hours. (3) Heart failure with preserved ejection fraction: Code(s): I50.30 - Unspecified diastolic (congestive) heart failure Status: Acute Assessment and Plan: Volume status managed with dialysis. (4) Severe aortic valve stenosis: Code(s): I35.0 - Nonrheumatic aortic (valve) stenosis Status: Acute Assessment and Plan: 11/01/22 Echo: EF >70%, mild LVH, diastolic dysfunction with E/e' 11, mod LAE, mild SHARON, severe (peak velocity 3.1 m/s, mean 25 mmHg, JEET 0.6 cm2), trace TR. Discuss need for aortic valve replacement and he is agreeable to it. This can be worked up as an outpatient and then will need referral to tertiary center for it. Attempted CHELI but patient had continuous coughing and unable to advance CHELI probe. Rescheduled CHELI with anesthesia for today. After CHELI, anticipate may d/c home from cardiology standpoint and f/u with me in 2 weeks. Subjective Date/time seen: 12/01/22 07:42 Interval history: No chest pain or sob. Exam Const: General: cooperative, healthy appearing and comfortable Orientation/consciousness: oriented to person, oriented to place and oriented to time Resp: Auscultation: clear to auscultation bilaterally, no crackles, no rales, no rhonchi, no wheezes and diminished lung sounds Cardio: Rate: regular rate Rhythm: abnormal rhythm Heart sounds: Murmur heart sound present (III/ systolic murmur RICS) Peripheral pulses: dorsalis pedis present Neuro: General: oriented to person, oriented to place and oriented to time Extrem: Right lower extremity: edema Left lower extremity: edema Other: Trace edema of legs Objective Data Vital Signs Vital Signs: Vital Signs - 24 hr 11/30/22 07:55 11/30/22 08:04 11/30/22 08:20 Temperature 97.3 F L Pulse Rate 86 95 87 Respiratory Rate 20 Blood Pressure 122/68 121/84 120/91 H Pulse Oximetry Oxygen Delivery Oxygen Flow Rate 11/30/22 08:00 11/30/22 08:40 11/30/22 09:00 Temperature 97.2 F L Pulse Rate 91 90 87 Respiratory Rate 18 Blood Pressure 102/85 117/97 H 113/77 Pulse Oximetry 100 Oxygen Delivery Oxygen Flow Rate 11/30/22 09:20 11/30/22 09:40 11/30/22 10:00 Temperature Pulse Rate 92 85 98 Respiratory Rate Blood Pressure 104/74 104/85 121/98 H Pulse Oximetry Oxygen Delivery Oxygen Flow Rate 11/30/22 10:21 11/30/22 10:40 11/30/22 11:00 Temperature Pulse Rate 89 100 92 Respiratory Rate Blood Pressure 120/81 131/99 H 128/94 H Pulse Oximetry Oxygen Delivery Oxygen Flow Rate 11/30/22 11:20 11/30/22 11:37 11/30/22 11:47 Temperature 97.5 F L Pulse Rate 100 90 94 Respiratory Rate 18 Blood Pressure 136/101 H 130/99 H 115/74 Pulse Oximetry Oxygen Delivery Oxygen Flow Rate 11/30/22 08:00 11/30/22 12:00 11/30/22 12:53 Temperature 97.4 F L Pulse Rate 101 H 104 H Respiratory Rate 18 Blood Pressure 111/89 Pulse Oximetry 96 Oxygen Delivery Room Air Oxygen Flow Rate 11/30/22 12:00 11/30/22 08:00 11/30/22 10:00 Temperature Pulse Rate 90 98 Respiratory Rate Blood Pressure Pulse Oximetry Oxygen Delivery Room Air Oxygen Flow Rate 11/30/22 12:00 11/30/22 16:00 11/30/22 16:00 Temperature 97.8 F Pulse Rate 105 H 95 97 Respiratory Rate 16 Blood Pressure 116/80 Pulse Oximetry 95 Oxygen Delivery Oxygen Flow Rate 11/30/22 20:38 11/30/22 20:40 11/30/22 20:00 Temperature 97.6
[2022-12-01] MEDS: METOPROLOL TARTRATE 25 MG TABLET PO ×2 (09:04→20:41)
[2022-12-01] MEDS: APIXABAN 2.5 MG TABLET PO ×2 (09:04→20:42)
[2022-12-01] MEDS: PANTOPRAZOLE 40 MG TABLET PO (09:04)
[2022-12-01] MEDS: MIDODRINE HCL 2.5 MG TABLET 5 MG PO ×3 (09:04→17:50)
[2022-12-01] MEDS: NYSTATIN 100,000 UNITS/ML SUSP 5 ML ORAL.SUSP PO ×3 (09:05→22:54)
[2022-12-01] MEDS: FLUTICASONE PROPIONATE 0.05% NA SPR 16 GM BTL (*BKC) 1 SPRAY NASAL ×2 (09:05→20:42)
[2022-12-01] MEDS: FAMOTIDINE 20 MG TABLET PO ×2 (09:05→17:51)
--- NOTE | 2022-12-01 12:00 | ECHO_ITS ---
Patient Info Name: Arthur Cantor Age: 82 years : 1940 Gender: Male Ht: 73 in Wt: 261 lbs BSA: 2.51 m2 HR: 89 bpm BP: 104 / 79 mmHg Heart Rhythm: Atrial Fibrillation Technical Quality: Good Exam Date: 12/01/2022 12:29 PM Exam Location: [facility] Patient Status: Inpatient Admit Date: 11/27/2022 Staff Ordering Physician: Luca Kaufman DO Pan Dumper: Kalee Canada RDCS Attending Provider: Ricky Laurent MD Referring Physician: Mandeep RENTERIA; Exam Type: CA echo transesophageal Study Info Indications - AORTIC STENOSIS Complete two-dimensional, color flow and Doppler transesophageal study is performed. Procedure Details Risks/benefits/alternative to CHELI discuss with patient and he is agreeable to procedure. He was anesthetized as per anesthesiology service. Please refer to their notes for more details. CHELI probe was advanced into esophagus without incident. Multiple images were obtained. CHELI probe withdrawn and no blood noted on CHELI probe tip. Patient tolerated procedure and no immediate complications. Summary 1. Left ventricular chamber dimension is normal. 2. There is mild concentric increased left ventricular wall thickness. 3. Left ventricular systolic function is normal with an ejection fraction of 65-70%. 4. The left ventricular diastolic function is indeterminate. 5. Left atrial chamber dimension is severely enlarged. 6. There is severe aortic valve sclerosis. 7. There is critical aortic valve stenosis and valve area by planimetry is 0.6 cm2. 8. There is moderate to severe mitral valve regurgitation. 9. There is trace tricuspid valve regurgitation. Left Ventricle Left ventricular systolic function is normal with an ejection fraction of 65-70%. Left ventricular chamber dimension is normal. There is mild concentric increased left ventricular wall thickness. The left ventricular diastolic function is indeterminate. Right Ventricle Right ventricular chamber dimension is normal. Right ventricular systolic function is normal. Left Atria Left atrial chamber dimension is severely enlarged. Right Atria Right atrial chamber dimension is normal. Atrial Appendage There is no thrombus visualized in the left atrial appendage. Aortic Valve There is critical aortic valve stenosis and valve area by planimetry is 0.6 cm2. The aortic valve is trileaflet. There is severe aortic valve sclerosis. There is no aortic valve regurgitation. Pulmonic Valve There is no pulmonic regurgitation. Mitral Valve There is no mitral valve stenosis. There is moderate to severe mitral valve regurgitation. Tricuspid Valve There is trace tricuspid valve regurgitation. Pericardium/Pleural There is no pericardial effusion. Inferior Vena Cava Inferior vena cava is not well visualized. Aorta The aortic root size at the sinus of Valsalva is normal. Report Signatures
--- NOTE | 2022-12-01 12:11 | PC.NURSE ---
Pt to medical lab assistant for CHELI via bed.
--- NOTE | 2022-12-01 12:37 | WPDANESEPPF ---
Anes - Initial Pre Proc Eval Procedure: Operation Date: 11/29/22 09:15 Proposed Procedures p Trans Esophageal Faith - Luca Kaufman DO Operation Date: 12/01/22 13:30 Proposed Procedures p Trans Esophageal Faith Kaufman DO Date/Time: 12/01/22 12:37 Surgeon: Ricky Laurent MD Pre Op Diagnosis: esrd with volume overload,afib with rvr,hypoxia Patient Data Age: 82 Gender: M Height: 1.85 m Weight: 118.5 kg Last Vital Signs Temp 97.7 F 12/01/22 08:00 Pulse 88 12/01/22 09:04 Resp 18 12/01/22 08:00 BP 146/85 H 12/01/22 08:00 Pulse Ox 100 12/01/22 08:00 O2 Del Method Nasal Cannula 12/01/22 08:00 O2 Flow Rate 2 12/01/22 08:00 FiO2 28 11/28/22 08:18 Allergies Allergy/AdvReac Type Severity Reaction Status Date / Time camphor [From Biofreeze] Allergy Intermediate Hives Verified 11/27/22 09:56 menthol [From Biofreeze] Allergy Intermediate Hives Verified 11/27/22 09:56 Home Medications Medication Instructions Recorded Confirmed Type apixaban 2.5 mg tablet (Eliquis) 2.5 mg PO Q12HR #60 tabs 06/21/22 11/27/22 Rx famotidine 20 mg tablet 20 mg PO BID #60 tabs 06/22/22 11/27/22 Rx pantoprazole 40 mg tablet,delayed 40 mg PO QAM 09/24/22 11/27/22 History release calcium acetate(phosphat bind) 667 1,334 mg PO TID #180 tabs 10/08/22 11/27/22 Rx mg tablet fluticasone propionate 50 1 spray intranasal Q12HR #1 inh 10/08/22 11/27/22 Rx mcg/actuation nasal spray,suspension nystatin 100,000 unit/mL oral 5 ml PO QID #240 mL 10/08/22 11/27/22 Rx suspension tramadol 50 mg tablet 50 mg PO Q6-8H PRN Pain 10/31/22 11/27/22 History lidocaine 5 % topical patch 1 patch transdermal DAILY #30 ea 11/04/22 11/27/22 Rx (Lidoderm) midodrine 2.5 mg tablet 5 mg PO TID 30 days #180 tabs 11/08/22 11/27/22 Rx iezwgazb-jq-ulpcc 300 mcg-K 60 1 tablet PO DAILY #90 tabs 11/09/22 11/27/22 Rx mcg-lycop 600 mcg-lutein 300 mcg tablet (Centrum Silver Ultra Men's) omega-3 acid ethyl esters 1 gram 1 cap PO DAILY #90 caps 11/09/22 11/27/22 Rx capsule loperamide 2 mg capsule (Imodium 2 mg PO Q6H PRN loose stool #90 11/10/22 11/27/22 Rx A-D) caps tobramycin 0.3 % eye drops 1 drp EACH EYE Q4H #5 mL 11/20/22 11/27/22 Rx Patient hx anesthesia problems: none Family hx anesthesia problems: none Results Review: All pre-operative results and documents have been reviewed as part of the pre-operative evaluation. [facility] Past Medical History Medical History (Updated 11/30/22 @ 12:05 by Ricky Laurent MD) Atrial fibrillation Chronic anemia Deep venous thrombosis Degenerative joint disease End-stage renal disease on hemodialysis Gastric ulcer Heart failure with preserved ejection fraction Echocardiogram in 10/2022 showed normal LV chamber size with hyperdynamic function EF estimated greater than 70% with mild concentric increased LVH and abnormal diastolic function with biatrial enlargement and severe aortic valve stenosis. Hyperlipidemia Hypertension Insomnia Osteoarthritis Rheumatoid arthritis Severe aortic valve stenosis On echo in 10/2022 with a valve area of 0.6 cm2. Weakness Surgical History Surgical History History of arthroscopy of right knee History of arthroscopy of right shoulder History of circumcision (2005) For phimosis, pathology showed lichen sclerosis. History of colonoscopy with polypectomy (02/2006) History of esophagogastroduodenoscopy History of repair of right rotator cuff (06/2008) History of tonsillectomy and adenoidectomy History of total knee replacement History of total knee replacement Status post right rotator cuff repair Family History Family History Father Heart failure Father Family history of liver disease Diabetes mellitus Family history of kidney disease Mother Family history of diabetes mellitus in first degree relati
--- NOTE | 2022-12-01 13:43 | PC.NURSE ---
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
[2022-12-01] MEDS: OMEGA 3 POLYUNSAT FATTY ACIDS 1 GM CAP PO (14:18)
[2022-12-01] MEDS: OPTI-GEN TAB 1 TABLET PO (14:18)
[2022-12-01] MEDS: polyethylene glycoL 3350 17 GM POWD.PACK PO (14:18)
[2022-12-01] MEDS: CALCIUM ACETATE 667 MG TABLET 1334 MG PO ×2 (14:20→17:50)
--- NOTE | 2022-12-01 15:58 | PC.NURSE ---
This patient, Arthur Cantor Jr., was transferred to [ [id number]] on 12/01/22 at 1545. Personal belongings sent with patient. Report given to [LUBNA oJrdan @ [phone] ]. Appropriate documentation sent with patient. Son, Abel, called and updated with room change and plan for possible d/c after dialysis tomorrow
--- NOTE | 2022-12-01 17:05 | WPDPN ---
Progress Note: A&P Assessment and Plan (1) Atrial fibrillation with rapid ventricular response: Code(s): I48.91 - Unspecified atrial fibrillation Status: Acute Assessment and Plan: Heart rate controlled. 12/01/2022 interval history: Patient with history of end-stage renal disease on hemodialysis presented with a atrial fibrillation with RVR seen by his Cardiology and rate is controlled, patient also found to history aortic stenosis to further evaluate today patient had IBAN which confirmed patient has clinically stenotic aortic valve seen by cardiology and further recommendation to follow, patient states feeling better compared to when he arrived, patient is clinically stable will have dialysis tomorrow and then will discharge the patient. (2) Elevated troponin: Code(s): R77.8 - Other specified abnormalities of plasma proteins Status: Acute Assessment and Plan: Monitor, appreciate Cardiology input. (3) End-stage renal disease on hemodialysis: Code(s): N18.6 - End stage renal disease; Z99.2 - Dependence on renal dialysis Status: Acute Assessment and Plan: Per Renal. (4) Heart failure with preserved ejection fraction: Code(s): I50.30 - Unspecified diastolic (congestive) heart failure Status: Acute Assessment and Plan: Prior echo reviewed. (5) Severe aortic valve stenosis: Code(s): I35.0 - Nonrheumatic aortic (valve) stenosis Status: Acute Assessment and Plan: Awaiting IBAN. (6) Nausea: Code(s): R11.0 - Nausea Status: Acute Assessment and Plan: Monitor (7) Chronic anemia: Code(s): D64.9 - Anemia, unspecified Status: Acute Assessment and Plan: Monitor (8) Weakness: Code(s): R53.1 - Weakness Status: Acute Assessment and Plan: Likely multifactorial with atrial fibrillation, aortic stenosis, end-stage renal disease. Waiting complete workup by Cardiology. Iban is planned for today. Subjective Date/time seen: 12/01/22 17:05 Interval history: 12/01/2022 interval history: Patient with history of end-stage renal disease on hemodialysis presented with a atrial fibrillation with RVR seen by his Cardiology and rate is controlled, patient also found to history aortic stenosis to further evaluate today patient had IBAN which confirmed patient has clinically stenotic aortic valve seen by cardiology and further recommendation to follow, patient states feeling better compared to when he arrived, patient is clinically stable will have dialysis tomorrow and then will discharge the patient. Review of Systems Review of Systems: Twelve systems were reviewed and are negative except for as per HPI. Exam Narrative: Morbidly obese Patient is comfortable, NAD HEENT: eyes are clear and none icteric LUNGS: Normal respiratory effort ABD: Distended Lower extremities: no edema SKIN: nonjaundiced Neuro: grossly intact. Objective Data Vital Signs Vital Signs: Vital Signs - 24 hr 11/30/22 20:38 11/30/22 20:40 11/30/22 20:00 Temperature 97.6 F Pulse Rate 91 80 Respiratory Rate 18 Blood Pressure 104/67 Pulse Oximetry 94 94 Oxygen Delivery Nasal Cannula Oxygen Flow Rate 2 11/30/22 20:00 12/01/22 00:00 12/01/22 03:44 Temperature 97.5 F L Pulse Rate 91 89 94 Respiratory Rate 20 Blood Pressure 85/66 L Pulse Oximetry 94 Oxygen Delivery Oxygen Flow Rate 12/01/22 04:00 12/01/22 05:27 12/01/22 08:00 Temperature 97.7 F Pulse Rate 90 89 Respiratory Rate 18 Blood Pressure 97/72 L 146/85 H Pulse Oximetry 100 Oxygen Delivery Oxygen Flow Rate 12/01/22 09:04 12/01/22 08:00 12/01/22 13:10 Temperature Pulse Rate 88 80 Respiratory Rate 21 H Blood Pressure 94/60 L Pulse Oximetry 100 98 Oxygen Delivery Nasal Cannula Nasal Cannula Oxygen Flow Rate 2 6 12/01/22 13:25 12/01/22 08:00 12/01/22 12:00 Temperatu
[2022-12-01] MEDS: DOCUSATE SODIUM 100 MG CAPSULE PO (22:54)
[2022-12-02] VITALS (23 sets, daily range): BP systolic 92–150; BP diastolic 49–99; PULSE 72–108; RESP 14–19; TEMP 35.5–37; O2SAT 92–97
--- NOTE | 2022-12-02 07:32 | WPDANESPN ---
Anes - Prog Note Post-Op Date/Time: 12/02/22 07:32 Cardiovascular status: normal Respiratory status: normal Airway patency: baseline Mental status: baseline Post-Op hydration status: normal Vital Signs: Last Vital Signs Temp 35.8 C L 12/02/22 07:07 Pulse 86 12/02/22 07:07 Resp 14 12/02/22 07:07 BP 117/99 H 12/02/22 07:07 Pulse Ox 97 12/02/22 07:07 O2 Del Method Nasal Cannula 12/01/22 21:00 O2 Flow Rate 2 12/01/22 21:00 FiO2 28 12/01/22 21:00 Pain Score (VAS): 0 I/O: Intake & Output 12/01/22 12/01/22 12/02/22 15:59 23:59 07:59 Intake Total 340 240 Output Total 200 Balance -200 340 240 Laboratory Tests 11/30/22 04:40 11/30/22 04:40 Patient Feedback: Patient satisfied with anesthetic care.
--- NOTE | 2022-12-02 08:17 | PM.PNCARD ---
Progress Note: A&P Assessment and Plan (1) Generalized weakness: Code(s): R53.1 - Weakness Status: Acute Assessment and Plan: Due to combination of atrial fibrillation with RVR, severe aortic stenosis, deconditioned state. (2) Atrial fibrillation with rapid ventricular response: Code(s): I48.91 - Unspecified atrial fibrillation Status: Acute Assessment and Plan: This is chronic. Rate control. Continue Metoprol tartate 25 mg PO every 12 hours. (3) Heart failure with preserved ejection fraction: Code(s): I50.30 - Unspecified diastolic (congestive) heart failure Status: Acute Assessment and Plan: Volume status managed with dialysis. (4) Severe aortic valve stenosis: Code(s): I35.0 - Nonrheumatic aortic (valve) stenosis Status: Acute Assessment and Plan: 11/01/22 Echo: EF >70%, mild LVH, diastolic dysfunction with E/e' 11, mod LAE, mild SHARON, severe (peak velocity 3.1 m/s, mean 25 mmHg, JEET 0.6 cm2), trace TR. Discuss need for aortic valve replacement and he is agreeable to it. This can be worked up as an outpatient and then will need referral to tertiary center for it. 12/01/22 CHELI shows critical aortic stenosis with valve area of 0.6 cm2. For procedure it was done with anesthesiology and he was very sensitive to low dose Propafol with hypoxia and hypotension, which were handled adequately by anesthesiology service. Discussed this with patient that he will need TAVR. He may be discharged from cardiology standpoint and f/u with me in 1-2 weeks. Will then refer to [facility] for TAVR. Subjective Date/time seen: 12/02/22 08:17 Interval history: No chest pain or sob. Exam Const: General: cooperative, healthy appearing and comfortable Orientation/consciousness: oriented to person, oriented to place and oriented to time Resp: Auscultation: clear to auscultation bilaterally, no crackles, no rales, no rhonchi, no wheezes and diminished lung sounds Cardio: Rate: regular rate Rhythm: abnormal rhythm Heart sounds: Murmur heart sound present (III/ systolic murmur RICS) Peripheral pulses: dorsalis pedis present Neuro: General: oriented to person, oriented to place and oriented to time Extrem: Right lower extremity: edema Left lower extremity: edema Other: Trace edema of legs Objective Data Vital Signs Vital Signs: Vital Signs - 24 hr 12/01/22 09:04 12/01/22 13:10 12/01/22 13:25 Temperature Pulse Rate 88 80 88 Respiratory Rate 21 H 27 H Blood Pressure 94/60 L 105/80 Pulse Oximetry 98 98 Oxygen Delivery Nasal Cannula Nasal Cannula Oxygen Flow Rate 6 2 Fraction of Inspired Oxygen 12/01/22 12:00 12/01/22 13:32 12/01/22 14:11 Temperature 97.6 F Pulse Rate 84 84 83 Respiratory Rate 22 H 18 Blood Pressure 116/84 122/97 H Pulse Oximetry 98 97 Oxygen Delivery Nasal Cannula Oxygen Flow Rate 2 Fraction of Inspired Oxygen 12/01/22 16:00 12/01/22 18:46 12/01/22 20:41 Temperature 97 F L Pulse Rate 99 86 86 Respiratory Rate 14 Blood Pressure 91/77 L Pulse Oximetry 98 Oxygen Delivery Oxygen Flow Rate Fraction of Inspired Oxygen 12/01/22 21:56 12/01/22 20:00 12/01/22 21:00 Temperature 96.2 F L Pulse Rate 85 95 Respiratory Rate 16 Blood Pressure 102/75 Pulse Oximetry 91 94 Oxygen Delivery Nasal Cannula Oxygen Flow Rate 2 Fraction of Inspired Oxygen 28 12/01/22 20:00 12/02/22 00:00 12/02/22 04:00 Temperature Pulse Rate 85 80 94 Respiratory Rate 16 Blood Pressure Pulse Oximetry 91 Oxygen Delivery Room Air Oxygen Flow Rate Fraction of Inspired Oxygen 28 12/02/22 07:07 12/02/22 07:55 Temperature 96.5 F L Pulse Rate 86 Respiratory Rate 14 Blood Pressure 117/99 H Pulse Oximetry 97 92 Oxygen Delivery Nasal Cannula Oxygen Flow Rate 2.5 Fraction of Inspired Oxygen 30 Intake/Output Intake/Output: Intake & Output 11/29/22 11/30/2212/01
[2022-12-02] MEDS: OPTI-GEN TAB 1 TABLET PO (09:05)
[2022-12-02] MEDS: OMEGA 3 POLYUNSAT FATTY ACIDS 1 GM CAP PO (09:05)
[2022-12-02] MEDS: PANTOPRAZOLE 40 MG TABLET PO (09:05)
[2022-12-02] MEDS: NYSTATIN 100,000 UNITS/ML SUSP 5 ML ORAL.SUSP PO ×3 (09:05→20:30)
[2022-12-02] MEDS: FLUTICASONE PROPIONATE 0.05% NA SPR 16 GM BTL (*BKC) 1 SPRAY NASAL ×2 (09:06→20:31)
--- NOTE | 2022-12-02 13:01 | PM.PNNEP ---
Progress Note: A&P Assessment and Plan (1) End-stage renal disease on hemodialysis: Code(s): N18.6 - End stage renal disease; Z99.2 - Dependence on renal dialysis Status: Acute Assessment and Plan: the patient has end-stage renal disease. This is due to microscopic polyangiitis. Dialysis underway Removing fluid. (2) Atrial fibrillation with rapid ventricular response: Code(s): I48.91 - Unspecified atrial fibrillation Status: Acute Assessment and Plan: The patient had atrial fibrillation with rapid ventricular response. He is getting metoprolol for rate control now. Heart rate in the 90s (3) Anemia: Code(s): D64.9 - Anemia, unspecified Status: Chronic Assessment and Plan: Hemoglobin is 11.. No need for EPO at this point. Check another level tomorrow (4) Weakness: Code(s): R53.1 - Weakness Status: Acute Assessment and Plan: The patient's weakness is most likely related to chronic deconditioning but also due to the aortic stenosis and atrial fibrillation with rapid ventricular response. (5) HTN (hypertension): Code(s): I10 - Essential (primary) hypertension Status: Chronic Assessment and Plan: Blood pressure is under good control (6) Diastolic dysfunction: Code(s): I51.89 - Other ill-defined heart diseases Status: Acute Subjective Date/time seen: 12/02/22 13:01 Interval history: patient feels about the same today. He had an echocardiogram showing aortic stenosis. He in the cardiologists are reviewing options. ON HD joelle it well. seen at 12:45 p.m. removing some fluid Exam Narrative: WDWN in NAD skin no rash or subQ nodules head ncat lungs clear bilaterally cor irregular rhythm, better rate no rub or gallop abd BS+ nontender and soft ext no edema or cyanosis. Objective Data Vital Signs Vital Signs: Vital Signs - 24 hr 12/01/22 13:10 12/01/22 13:25 12/01/22 13:32 Temperature Pulse Rate 80 88 84 Respiratory Rate 21 H 27 H 22 H Blood Pressure 94/60 L 105/80 116/84 Pulse Oximetry 98 98 98 Oxygen Delivery Nasal Cannula Nasal Cannula Nasal Cannula Oxygen Flow Rate 6 2 2 Fraction of Inspired Oxygen 12/01/22 14:11 12/01/22 16:00 12/01/22 18:46 Temperature 97.6 F 97 F L Pulse Rate 83 99 86 Respiratory Rate 18 14 Blood Pressure 122/97 H 91/77 L Pulse Oximetry 97 98 Oxygen Delivery Oxygen Flow Rate Fraction of Inspired Oxygen 12/01/22 20:41 12/01/22 21:56 12/01/22 20:00 Temperature 96.2 F L Pulse Rate 86 85 95 Respiratory Rate 16 Blood Pressure 102/75 Pulse Oximetry 91 Oxygen Delivery Oxygen Flow Rate Fraction of Inspired Oxygen 12/01/22 21:00 12/01/22 20:00 12/02/22 00:00 Temperature Pulse Rate 85 80 Respiratory Rate 16 Blood Pressure Pulse Oximetry 94 91 Oxygen Delivery Nasal Cannula Room Air Oxygen Flow Rate 2 Fraction of Inspired Oxygen 28 28 12/02/22 04:00 12/02/22 07:07 12/02/22 07:55 Temperature 96.5 F L Pulse Rate 94 86 Respiratory Rate 14 Blood Pressure 117/99 H Pulse Oximetry 97 92 Oxygen Delivery Nasal Cannula Oxygen Flow Rate 2.5 Fraction of Inspired Oxygen 30 12/02/22 10:09 12/02/22 10:00 12/02/22 10:00 Temperature 97.4 F L Pulse Rate 105 H 95 Respiratory Rate 16 Blood Pressure 105/50 L 106/53 L Pulse Oximetry Oxygen Delivery Oxygen Flow Rate 2 Fraction of Inspired Oxygen 12/02/22 10:20 12/02/22 10:40 12/02/22 11:00 Temperature Pulse Rate 92 88 104 H Respiratory Rate Blood Pressure 94/55 L 94/51 L 105/78 Pulse Oximetry Oxygen Delivery Oxygen Flow Rate Fraction of Inspired Oxygen 12/02/22 08:00 12/02/22 08:00 12/02/22 11:20 Temperature Pulse Rate 96 104 H 102 H Respiratory Rate 16 Blood Pressure 103/83 Pulse Oximetry 92 Oxygen Delivery Nasal Cannula Oxygen Flow Rate 2 Fraction o
[2022-12-02] MEDS: SODIUM CHLORIDE 0.9% IV 1,000 ML 999 ML IV CONT (13:48)
--- NOTE | 2022-12-02 13:52 | PCOTNOTE ---
The patient treatment was not able to be completed on 12/02 due to patient is still in HD. Will plan to continue treatment per plan of care.
--- NOTE | 2022-12-02 15:30 | PM.DS ---
DS: Admitting Diagnosis Discharge Date Admitting Diagnosis Weakness. DS: Discharge Diagnosis Discharge Diagnosis (1) Atrial fibrillation with rapid ventricular response: Code(s): I48.91 - Unspecified atrial fibrillation Status: Chronic Assessment and Plan: Heart rate controlled. 12/01/2022 interval history: Patient with history of end-stage renal disease on hemodialysis presented with a atrial fibrillation with RVR seen by his Cardiology and rate is controlled, patient also found to history aortic stenosis to further evaluate today patient had IBAN which confirmed patient has clinically stenotic aortic valve seen by cardiology and further recommendation to follow, patient states feeling better compared to when he arrived, patient is clinically stable will have dialysis tomorrow and then will discharge the patient. (2) Elevated troponin: Code(s): R77.8 - Other specified abnormalities of plasma proteins Status: Acute Assessment and Plan: Monitor, appreciate Cardiology input. (3) End-stage renal disease on hemodialysis: Code(s): N18.6 - End stage renal disease; Z99.2 - Dependence on renal dialysis Status: Acute Assessment and Plan: Per Renal. (4) Heart failure with preserved ejection fraction: Code(s): I50.30 - Unspecified diastolic (congestive) heart failure Status: Acute Assessment and Plan: Prior echo reviewed. (5) Severe aortic valve stenosis: Code(s): I35.0 - Nonrheumatic aortic (valve) stenosis Status: Acute Assessment and Plan: Awaiting IBAN. (6) Nausea: Code(s): R11.0 - Nausea Status: Acute Assessment and Plan: Monitor (7) Chronic anemia: Code(s): D64.9 - Anemia, unspecified Status: Acute Assessment and Plan: Monitor (8) Weakness: Code(s): R53.1 - Weakness Status: Acute Assessment and Plan: Likely multifactorial with atrial fibrillation, aortic stenosis, end-stage renal disease. Waiting complete workup by Cardiology. Iban is planned for today. DS: Summary Hospital Course Reason for hospitalization: Weakness. Narrative: This is an 82-year-old male with multiple medical problems including paroxysmal atrial fibrillation on chronic anticoagulation, severe aortic stenosis by echocardiogram in 10/2022, heart failure with preserved ejection fraction, hypertension, hyperlipidemia, end-stage renal disease on hemodialysis, anemia, and other comorbidities who presented to the emergency department via EMS from assisted living at [facility] for evaluation of weakness. The patient provides the following history. He has not been feeling well for a couple of weeks with frequent nausea, dry heaves, poor appetite, bloating, and belching. Symptoms seemed to have gotten worse over the past couple of days and today he was so weak that he needed help to stand up. He was due for dialysis today but skipped that and came to the ER. He denies fever, headache, sinus congestion, sore throat, vomiting, and diarrhea. He also denies chest pain, pleuritic pain, and palpitations. He was afebrile with stable blood pressures on arrival to the ED. EKG showed atrial fibrillation with rapid ventricular response for which he has been started on a diltiazem drip. Preliminary workup in the ED was significant for relatively stable CBC and CMP compared to previous labs with no significant electrolyte abnormalities, elevated troponin proBNP, and chest x-ray showing bilateral mid and lower lung zone infiltrates. He is being admitted in this setting for further treatment. Hospital Course: Patient with history of end-stage renal disease on hemodialysis presented with a atrial fibrillation with RVR seen by his Cardiology and rate is controlled, patient also found to history aortic stenosis to further evaluate today patient had IBAN which confirmed patient has clinically stenotic aortic valve seen by cardio
[2022-12-02] MEDS: MIDODRINE HCL 2.5 MG TABLET 5 MG PO (18:20)
[2022-12-02] MEDS: CALCIUM ACETATE 667 MG TABLET 1334 MG PO (18:20)
[2022-12-02] MEDS: FAMOTIDINE 20 MG TABLET PO (18:20)
[2022-12-02] MEDS: METOPROLOL TARTRATE 25 MG TABLET PO (20:29)
[2022-12-02] MEDS: APIXABAN 2.5 MG TABLET PO (20:30)
[2022-12-02] MEDS: HYDROcodone/acetaminophen (*CRX) 5-325 MG TABLET 1 TAB PO (20:40)
[2022-12-03] VITALS (8 sets, daily range): BP systolic 88–102; BP diastolic 69–79; PULSE 81–103; RESP 16–19; TEMP 35.8–37.2; O2SAT 98–100
[2022-12-03 07:41] LABS: Hematocrit 35.7 % (42.0-52.0); Hemoglobin 10.9 g/dL (14.0-18.0); Mean Corpuscular HGB Conc 30.5 g/dl (32-36); Mean Corpuscular Volume 104.7 fl (80-100); Platelet Count Result 196 k/mm3 (150-375); Red Blood Count 3.41 M/mm3 (4.6-6.20); Red Cell Distribution Width 15.4 % (11.5-14.5); White Blood Count 6.2 K/mm3 (4.5-10.0)
[2022-12-03 08:01] LABS: Albumin Level 2.7 g/dL (3.5-5.1); Anion Gap 5 mmol/L (8-16); Blood Urea Nitrogen 34 mg/dL (9-20); Calcium 8.2 mg/dL (8.4-10.2); Carbon Dioxide 34 mmol/L (22-30); Chloride 98 mmol/L (98-107); Estimated CRCL calculation 14 ml/min; Estimated Glomerular Filt Rate 9; Glucose 70 mg/dL (65-110); Phosphorus 3.8 mg/dL (2.5-4.5); Potassium 4.7 mmol/L (3.4-5.0); Sodium 137 mmol/L (137-145)
[2022-12-03] MEDS: APIXABAN 2.5 MG TABLET PO (10:04)
[2022-12-03] MEDS: FAMOTIDINE 20 MG TABLET PO ×2 (10:04→17:51)
[2022-12-03] MEDS: OMEGA 3 POLYUNSAT FATTY ACIDS 1 GM CAP PO (10:04)
[2022-12-03] MEDS: FLUTICASONE PROPIONATE 0.05% NA SPR 16 GM BTL (*BKC) 1 SPRAY NASAL (10:04)
[2022-12-03] MEDS: CALCIUM ACETATE 667 MG TABLET 1334 MG PO ×3 (10:04→17:51)
[2022-12-03] MEDS: NYSTATIN 100,000 UNITS/ML SUSP 5 ML ORAL.SUSP PO ×3 (10:04→17:51)
[2022-12-03] MEDS: PANTOPRAZOLE 40 MG TABLET PO (10:04)
[2022-12-03] MEDS: LIDOCAINE 5% PATCH 1 PATCH TRANSDERM (10:05)
[2022-12-03] MEDS: MIDODRINE HCL 2.5 MG TABLET 5 MG PO ×3 (10:06→17:51)
[2022-12-03] MEDS: polyethylene glycoL 3350 17 GM POWD.PACK PO (10:06)
[2022-12-03] MEDS: OPTI-GEN TAB 1 TABLET PO (10:06)
[2022-12-03] MEDS: METOPROLOL TARTRATE 25 MG TABLET PO (10:06)
[2022-12-03 17:40] LABS: SARS-CoV-2 RNA PCR Negative (Negative)
== END 2022-12-03 20:45 ==
LOC: ANHED 09:36 → ANHIMU 11:52 → ANH3MEDSUR 12-01 15:46
PROVIDERS: Family Medicine; Internal Medicine Cardiovascular Disease; Internal Medicine Nephrology; Physician Assistant; Admitting Provider Chiropractor; Emergency Provider Emergency Medicine; PCP Family Medicine; Visit Provider Chiropractor
PROC: (CPT 93312; principal; 2022-11-29 09:15)
DX: I48.91 Unspecified atrial fibrillation (principal); R09.02 Hypoxemia; R77.8 Other specified abnormalities of plasma proteins; I13.2 Hypertensive heart and chronic kidney disease with heart failure and with stage 5 chronic kidney disease, or end stage renal disease; N18.6 End stage renal disease; I50.30 Unspecified diastolic (congestive) heart failure; D63.1 Anemia in chronic kidney disease; Z99.2 Dependence on renal dialysis; Z20.822 Contact with and (suspected) exposure to COVID-19; M19.90 Unspecified osteoarthritis, unspecified site; R94.31 Abnormal electrocardiogram [ECG] [EKG]; R11.0 Nausea; E78.5 Hyperlipidemia, unspecified; G47.00 Insomnia, unspecified; R63.0 Anorexia; E66.01 Morbid (severe) obesity due to excess calories; Z68.42 Body mass index [BMI] 45.0-49.9, adult; I08.0 Rheumatic disorders of both mitral and aortic valves; F10.90 Alcohol use, unspecified, uncomplicated; Z87.891 Personal history of nicotine dependence; Z86.718 Personal history of other venous thrombosis and embolism; Z79.01 Long term (current) use of anticoagulants; Z79.891 Long term (current) use of opiate analgesic; Z79.899 Other long term (current) drug therapy; Z82.49 Family history of ischemic heart disease and other diseases of the circulatory system; Z84.1 Family history of disorders of kidney and ureter
CPT/HCPCS: 36415; 71045; 80048; 80053; 80069; 83735; 83880; 84100; 84484; 85025; 85027; 85610; 85730; 86706; 87340; 87635; 93005; 93312; 93320; 93325; 96374; 96376; 97110; 97116; 97161; 97165; 97530; 97535; 99285; A9270; G0257; G0378; J1644; J2250; J2704; J3010; J7030; J7040

== ENCOUNTER 2022-12-14 14:22 | Inpatient (IN) | payer MEDICARE, SELFPAY ==
[2022-12-14] VITALS (11 sets, daily range): BP systolic 87–169; BP diastolic 60–153; PULSE 94–119; RESP 15–25; TEMP 36.6–38.8; O2SAT 92–97
--- NOTE | ~2022-12-14 | XR_ITS ---
EXAMINATION: XR chest 2V Exam Date/Time: 12/14/2022 15:17 CDT HISTORY: vomiting Comparison: 11/27/2022. RESULT: Lines, tubes, and devices: Dual-lumen left IJ catheter terminating at the proximal SVC, stable. Lungs and pleura: Low volumes with crowding. Left hemidiaphragm elevation. Ill-defined patchy opacit ies in the lower lungs. Mild bilateral costophrenic angle blunting. Mild diffuse reticular opacities. Cardiomediastinal silhouette: Stable. Other: No acute osseous or upper abdominal finding. IMPRESSION: Mild interstitial edema. Patchy lower lung opacities may represent atelectasis or consolidation. Smal l bilateral effusions. Reviewed, dictated and finalized at location K. IMPRESSION: Mild interstitial edema. Patchy lower lung opacities may represent atelectasis or consolidation. Small bilateral effusions.
--- NOTE | ~2022-12-14 | CT_ITS ---
EXAMINATION:CT diagnostic chest wo con DATE: 12/15/2022 09:57 INDICATION: Pneumonia. TECHNIQUE: Computed tomography (CT) of the chest was performed without intravenous contrast. Automate d exposure control and iterative reconstruction technique were employed. The dose-length product (DLP ) was 686.72 mGy-cm. COMPARISON: Chest CT 09/30/2022, 06/05/22, 05/18/21 FINDINGS: There is widespread septal thickening in the lungs with a peripheral predominance. A calcif ied right lung nodule and calcified right hilar lymph node are consistent with old granulomatous dise ase. There are a few nodules in right upper lobe measuring up to 7 mm. There is a small peripheral ai rspace opacity in left upper lobe. There are mild peripheral airspace and groundglass opacities in th e inferior lungs. There are small pleural effusions. Again seen is an embolized wire in a pulmonary a rtery in right lower lobe. Cardiomegaly is noted. There are coronary artery calcifications. There are calcifications of the aortic valve. There is a small pericardial effusion. There is a cyst in the li jai measuring 2.7 cm. There are two 4 mm stones in left kidney. There are hemorrhagic cysts in the ki dneys measuring up to 11 mm on the right. There are cysts in left kidney measuring up to 17 mm. There is bilateral gynecomastia. There is an 18 x 15 mm right supraclavicular node, stable from 05/18/21, li hayden reactive. There is a left internal jugular central venous catheter with tip in superior vena cav a. There are old healed bilateral rib fractures. There is severe thoracic spondylosis. There is mild chronic anterior wedging of multiple vertebral bodies. IMPRESSION: 1. Diffuse lung disease, likely mild pulmonary edema and mild findings of pneumonia. Consider noncont rast low-dose chest CT in 6 months given the lung nodules. 2. Small pleural effusions. 3. Small pericardial effusion. 4. Embolized wire again seen in a pulmonary artery in right lower lobe. Reviewed, dictated and finalized at location B. IMPRESSION: 1. Diffuse lung disease, likely mild pulmonary edema and mild findings of pneum onia. Consider noncontrast low-dose chest CT in 6 months given the lung nodules . 2. Small pleural effusions. 3. Small pericardial effusion. 4. Embolized wire again seen in a pulmonary artery in right lower lobe.
--- NOTE | 2022-12-14 14:38 | ECG_ITS ---
Measurements Intervals [place] Rate: 102 P: IA: 0 QRS: -17 QRSD: 90 T: 42 QT: 337 QTc: 440 Interpretive Statements ATRIAL FIBRILLATION WITH RAPID VENTRICULAR RESPONSE LEFTWARD AXIS ABNORMAL RHYTHM ECG COMPARED TO ECG 11/27/2022 09:21:56 NO SIGNIFICANT CHANGES Electronically Signed On 12-15-2022 7:39:52 CDT by Ricky Nguyen M.D.
[2022-12-14] MEDS: ONDANSETRON INJ 4 MG/2 ML VIAL IV PUSH (15:01)
[2022-12-14] MEDS: ACETAMINOPHEN 500 MG TABLET 1000 MG PO (15:02)
[2022-12-14 15:10] LABS: Hematocrit 36.4 % (42.0-52.0); Hemoglobin 11.3 g/dL (14.0-18.0); Mean Corpuscular Hemoglobin 32.1 pg (26-34); Mean Corpuscular Volume 103.4 fl (80-100); Mean Platelet Volume 10.1 fl (7.4-10.4); Platelet Count Result 153 k/mm3 (150-375); Red Blood Count 3.52 M/mm3 (4.6-6.20); Red Cell Distribution Width 15.7 % (11.5-14.5)
[2022-12-14 15:22] LABS: Band Neutrophils Percent 8 % (0-6); Lymphocytes Absolute Manual 0.39 K/mm3 (1.1-4.5); Monocytes Absolute Manual 0.52 K/mm3 (0.1-0.90); Monocytes Percent Manual 4 % (3-9); Neutrophils Absolute Manual 12.09 K/mm3 (1.3-6.7); Neutrophils Percent Manual 85 % (46-73); Total Cells Counted 100
[2022-12-14 15:23] LABS: Alanine Aminotransferase 18 U/L (6-50); Albumin Level 3.3 g/dL (3.5-5.1); Alkaline Phosphatase 73 U/L (38-126); Anion Gap 5 mmol/L (8-16); Aspartate Amino Transferase 23 U/L (17-59); Blood Urea Nitrogen 24 mg/dL (9-20); Calcium 8.4 mg/dL (8.4-10.2); Carbon Dioxide 27 mmol/L (22-30); Chloride 97 mmol/L (98-107); Estimated CRCL calculation 16 ml/min; Estimated Glomerular Filt Rate 13; Glucose 108 mg/dL (65-110); Lipase 119 U/L (23-300); Platelet Estimate Adequate (Adequate); Potassium 4.4 mmol/L (3.4-5.0); Schistocytes None Seen (NORMAL); Sodium 129 mmol/L (137-145)
--- NOTE | 2022-12-14 16:41 | ED.GENADULT ---
HPI - General Adult General Chief complaint: Nausea/Vomiting/Diarrhea Stated complaint: sick since dialysis Time Seen by Provider: 12/14/22 14:28 History of Present Illness HPI narrative: Patient is an 82-year-old male who presents ER with nausea and vomiting. Patient was at dialysis earlier and had to be taken off the machine due to vomiting. He has been feeling weak since then. He was at his [facility] found to have an elevated heart rate. Patient is known to have atrial fibrillation. He has no chest pain or chest pressure. He has mild dyspnea that he also reports is chronic. Patient found to be febrile upon arrival here. He has no other complaints at this time. No diarrhea. Related Data Home Medications Medication Instructions Recorded Confirmed pantoprazole 40 mg tablet,delayed 40 mg PO QAM 09/24/22 12/14/22 release tramadol 50 mg tablet 50 mg PO Q6-8H PRN Pain 10/31/22 12/14/22 furosemide 40 mg tablet 40 mg PO DAILY 12/14/22 12/14/22 midodrine 2.5 mg tablet 5 mg PO TID 12/14/22 12/14/22 Allergies Allergy/AdvReac Type Severity Reaction Status Date / Time camphor [From Biofreeze] Allergy Intermediate Hives Verified 12/14/22 14:38 menthol [From Biofreeze] Allergy Intermediate Hives Verified 12/14/22 14:38 Review of Systems Review of Systems: All systems reviewed & are unremarkable except as noted in HPI and below Constitutional: Constitutional: Denies chills, Reports fatigue and Reports fever(s) ENT: Denies nasal congestion and Denies sore throat Cardiovascular: Cardiovascular: Denies chest pain, Reports rapid heart rate and Denies radiating jaw, neck or arm pain Respiratory: Respiratory: Denies cough and Reports dyspnea Gastrointestinal: Gastrointestinal: Denies abdominal pain, Denies diarrhea, Reports nausea and Reports vomiting [facility] Past Medical History Medical History (Updated 12/14/22 @ 22:01 by Arron Camp MD) Atrial fibrillation Chronic anemia Deep venous thrombosis Degenerative joint disease End-stage renal disease on hemodialysis Gastric ulcer Heart failure with preserved ejection fraction Echocardiogram in 10/2022 showed normal LV chamber size with hyperdynamic function EF estimated greater than 70% with mild concentric increased LVH and abnormal diastolic function with biatrial enlargement and severe aortic valve stenosis. Hyperlipidemia Hypertension Insomnia Osteoarthritis Rheumatoid arthritis Severe aortic valve stenosis On echo in 10/2022 with a valve area of 0.6 cm2. Weakness Surgical History Surgical History History of arthroscopy of right knee History of arthroscopy of right shoulder History of circumcision (2005) For phimosis, pathology showed lichen sclerosis. History of colonoscopy with polypectomy (02/2006) History of esophagogastroduodenoscopy History of repair of right rotator cuff (06/2008) History of tonsillectomy and adenoidectomy History of total knee replacement History of total knee replacement Status post right rotator cuff repair Family History Family History Father Heart failure Father Family history of liver disease Diabetes mellitus Family history of kidney disease Mother Family history of diabetes mellitus in first degree relative Diabetes mellitus Family history of renal failure Other Family history of gout Hypertension Social History Social History Social History: Healthcare power of attorney lawyer: Michell Palomino. Code status: Full code. Smoking packs per day: 0.5 Smoking cigarettes per day: 10.0 Years smoked: 10 Smoking pack-years: 5.00 Smoking status: Former smoker Tobacco type: cigarettes Second hand tobacco smoke exposure: No Smoking end date: 05/16/17 Alcohol intake: never Alcohol use details: Rare alcohol use in moderation. Subs
[2022-12-14] MEDS: dilTIAZem HCl INJ 25 MG/5 ML VIAL 10 MG IV PUSH (17:11)
[2022-12-14] MEDS: AZITHROMYCIN 500 MG/NS 250 ML 500 MG/250 ML BAG 250 MG IVPB (17:30)
--- NOTE | 2022-12-14 18:25 | PM.IMHP ---
H&P: HPI History of Present Illness Date/Time: 12/14/22 18:25 Chief Complaint: Nausea vomiting diarrhea. Narrative: This is a 82-year-old male patient who has end-stage renal disease and has dialysis on Tuesday. Patient stated that he did have dialysis today and felt sick afterwards. The patient was taken off of the machine due to vomiting. The patient has been feeling weak air since then. The patient was having an elevated heart rate at the care home. The patient is known to have atrial fibrillation. He denies any chest pain or pressure. The patient had been found to be afebrile in the emergency room. His white count is 13. H&H is 11.3 and 36.4. BUN is 24 creatinine is 4.4. Sodium is 129. Chest x-ray was read as mild interstitial edema. Patchy lower lung opacities which may represent atelectasis or consolidation. Small pleural effusions. The patient was given Cardizem IV push and was started on Rocephin and azithromycin. He is also given Zofran in the emergency room. The patient told me that he did have chills at dialysis today. The patient is being admitted to observation status on the date of service of 12/14/2022. Review of Systems Review of Systems: All systems reviewed & are unremarkable except as noted in HPI and below Constitutional: Constitutional: Reports as per HPI and Reports no additional constitutional complaints Eyes: Eyes: Reports as per HPI and Reports no additional eye complaints ENT: Reports system reviewed and no additional complaints, except as documented and Reports Normal hearing present Cardiovascular: Cardiovascular: Reports no additional cardiovascular complaints Respiratory: Respiratory: Reports no additional respiratory complaints and Reports no additional respiratory complaints Gastrointestinal: Gastrointestinal: Reports as per HPI and Reports no additional gastrointestinal complaints Musculoskeletal: Musculoskeletal: Reports no additional musculoskeletal complaints Integumentary/Breasts: Skin/Breast: Reports system reviewed and no additional complaints, except as docu and Reports as per HPI Neurologic: Reports system reviewed and no additional complaints, except as documented, Reports as per HPI and Reports Normal hearing present Psychiatric: Psychiatric: Reports no additional psychiatric complaints and Reports as per HPI Endocrine: Endocrine: Reports no additional endocrine complaints Hematologic/Lymphatic: Hematologic/Lymphatic: Reports no additional hematologic/lymphatic complaints Allergic/Immunologic: Allergic/Immunologic: Reports no additional allergic/immunologic complaints [facility] Past Medical History Medical History (Updated 12/14/22 @ 22:58 by Demi Fletcher NP) Atrial fibrillation Chronic anemia Deep venous thrombosis Degenerative joint disease End-stage renal disease on hemodialysis Gastric ulcer Heart failure with preserved ejection fraction Echocardiogram in 10/2022 showed normal LV chamber size with hyperdynamic function EF estimated greater than 70% with mild concentric increased LVH and abnormal diastolic function with biatrial enlargement and severe aortic valve stenosis. Hyperlipidemia Hypertension Insomnia Osteoarthritis Pneumonia Rheumatoid arthritis Severe aortic valve stenosis On echo in 10/2022 with a valve area of 0.6 cm2. Weakness Surgical History Surgical History History of arthroscopy of right knee History of arthroscopy of right shoulder History of circumcision (2005) For phimosis, pathology showed lichen sclerosis. History of colonoscopy with polypectomy (02/2006) History of esophagogastroduodenoscopy History of repair of right rotator cuff (06/2008) History of tonsillectomy and adenoidectomy History of total knee replacement History of total knee replacement Status post right rotator cuff repair Family History Family History (Reviewed 12/14/22 @ 22:52 by Phylicia
--- NOTE | 2022-12-14 18:48 | ADMGEN ---
This patient, Arthur Cantor Jr., was admitted to IMU Room 201-01 on 12/14/22 at 1821. Patient/family oriented to hospital policies and general routines including ID bracelet, bed and alarms, visiting hours, pain management, procedures, bathroom and other care routines, personal items, smoking policy, room service/diet, and visiting hours. Information on how to activate the Rapid Response Team has been discussed. Patient/Family are encouraged to report perceived risks to care and to ask questions if they do not understand what they are told or what they should do.
[2022-12-15] VITALS (27 sets, daily range): BP systolic 80–107; BP diastolic 55–75; PULSE 72–115; RESP 16–22; TEMP 36.1–36.6; O2SAT 93–99
[2022-12-15] MEDS: ALBUTEROL SULFATE NEB 2.5 MG/3 ML INH INHALATION ×4 (01:30→19:46)
[2022-12-15] MEDS: IPRATROPIUM BR 0.02% INH SOLN 0.5 MG/2.5 ML VIAL INHALATION ×4 (01:30→19:46)
[2022-12-15 04:36] LABS: Basophils Absolute Auto 0.1 K/mm3 (0.0-0.1); Basophils Percent Auto 0.5 % (0.2-1.2); Eosinophils Percent Auto 0.1 % (0-4.4); Hematocrit 30.7 % (42.0-52.0); Hemoglobin 9.5 g/dL (14.0-18.0); Immature Granulocyte Absolute 0.15 K/mm3 (0.00-0.031); Immature Platelet Fraction Pct 4.1 % (0.9-11.2); Lymphocytes Absolute Auto 0.48 K/mm3 (0.9-3.2); Lymphocytes Percent Auto 3.3 % (18.3-44.2); Mean Corpuscular HGB Conc 30.9 g/dl (32-36); Mean Corpuscular Hemoglobin 32.5 pg (26-34); Mean Corpuscular Volume 105.1 fl (80-100); Mean Platelet Volume 10.1 fl (7.4-10.4); Monocytes Absolute Auto 1.2 K/mm3 (0.1-0.6); Monocytes Percent Auto 8.1 % (2.6-8.5); Neutrophils Absolute Auto 12.8 K/mm3 (1.3-6.7); Platelet Count Result 151 k/mm3 (150-375); Red Blood Count 2.92 M/mm3 (4.6-6.20); Red Cell Distribution Width 15.5 % (11.5-14.5); White Blood Count 14.7 K/mm3 (4.5-10.0)
[2022-12-15 04:52] LABS: Alanine Aminotransferase 17 U/L (6-50); Albumin Level 2.6 g/dL (3.5-5.1); Alkaline Phosphatase 59 U/L (38-126); Anion Gap 4 mmol/L (8-16); Aspartate Amino Transferase 20 U/L (17-59); Bilirubin,Total 0.7 mg/dL (0.2-1.3); Blood Urea Nitrogen 28 mg/dL (9-20); Calcium 7.9 mg/dL (8.4-10.2); Carbon Dioxide 29 mmol/L (22-30); Chloride 97 mmol/L (98-107); Estimated CRCL calculation 14 ml/min; Estimated Glomerular Filt Rate 11; Glucose 86 mg/dL (65-110); Lactic Acid Reflex 2.2 mmol/L (0.7-2.0); Magnesium 1.6 mg/dL (1.6-2.3); Potassium 4.6 mmol/L (3.4-5.0); Sodium 130 mmol/L (137-145)
[2022-12-15 07:32] LABS: Reflex Lactic Acid Yes or No Add Lactic
[2022-12-15] MEDS: CALCIUM ACETATE 667 MG TABLET 1334 MG PO ×3 (08:10→17:40)
[2022-12-15] MEDS: METOPROLOL TARTRATE 25 MG TABLET PO ×2 (08:11→20:40)
[2022-12-15] MEDS: MIDODRINE HCL 2.5 MG TABLET 5 MG PO ×3 (08:12→17:40)
[2022-12-15] MEDS: OMEGA 3 POLYUNSAT FATTY ACIDS 1 GM CAP PO (08:12)
[2022-12-15] MEDS: OPTI-GEN TAB 1 TABLET PO (08:12)
[2022-12-15] MEDS: APIXABAN 2.5 MG TABLET PO ×2 (08:14→20:40)
[2022-12-15] MEDS: PANTOPRAZOLE 40 MG TABLET PO (08:14)
[2022-12-15] MEDS: FAMOTIDINE 20 MG TABLET PO ×2 (08:15→17:40)
[2022-12-15] MEDS: polyethylene glycoL 3350 17 GM POWD.PACK PO (08:15)
[2022-12-15 08:16] LABS: Lactic Acid 1.2 mmol/L (0.7-2.0)
[2022-12-15] MEDS: FLUTICASONE PROPIONATE 0.05% NA SPR 16 GM BTL (*BKC) 1 SPRAY NASAL ×2 (08:17→20:41)
[2022-12-15] MEDS: LIDOCAINE 5% PATCH 1 PATCH TRANSDERM (08:18)
--- NOTE | 2022-12-15 09:42 | PM.IMPN ---
Progress Note: A&P Assessment and Plan (1) Pneumonia: Code(s): J18.9 - Pneumonia, unspecified organism Status: Acute Assessment and Plan: Continue IV Zithromax and Rocephin, blood cultures in process, sputum culture ordered. (2) ESRD (end stage renal disease) on dialysis: Code(s): N18.6 - End stage renal disease; Z99.2 - Dependence on renal dialysis Status: Acute Assessment and Plan: Tuesday dialysis schedule, nephrology consult to continue. (3) Atrial fibrillation: Qualifiers: Atrial fibrillation type: unspecified Qualified Code(s): I48.91 - Unspecified atrial fibrillation Code(s): I48.91 - Unspecified atrial fibrillation Status: Acute Assessment and Plan: Continue with Eliquis.? Continue with metoprolol (4) CHF (congestive heart failure): Qualifiers: Heart failure type: systolic Heart failure chronicity: chronic Qualified Code(s): I50.22 - Chronic systolic (congestive) heart failure Code(s): I50.9 - Heart failure, unspecified Status: Acute Assessment and Plan: Last echo . Complete two-dimensional, color flow and Doppler transthoracic echocardiogram is performed. ? 2. Left ventricular chamber dimension is normal. ? 3. Left ventricular systolic function is hyperdynamic, estimated at >70%. ? 4. There is mild concentric increased left ventricular wall thickness. ? 5. The left ventricular diastolic function is abnormal. ? 6. E/e' 11 is mildly elevated. ? 7. Atrial fibrillation. ? 8. Left atrial chamber dimension is moderately enlarged. ? 9. Right atrial chamber dimension is mildly enlarged. ? 10. There is severe aortic valve sclerosis. ? 11. There is severe aortic valve stenosis with a peak velocity of 315 cm/s, mean gradient of 25 mmHg, and aortic valve area of 0.6 cm2. ? 12. There is trace tricuspid valve regurgitation. ? 13. No pulmonary hypertension, estimated pulmonary arterial systolic pressure is 37 mmHg. Continue with Lasix and metoprolol (5) HTN (hypertension): Code(s): I10 - Essential (primary) hypertension Status: Chronic Assessment and Plan: The patient is on Lasix and metoprolol however he is also on midodrine for hypotension. (6) HLD (hyperlipidemia): Code(s): E78.5 - Hyperlipidemia, unspecified Status: Acute Assessment and Plan: Continue with heart healthy diet (7) JUVE (obstructive sleep apnea): Code(s): G47.33 - Obstructive sleep apnea (adult) (pediatric) Status: Acute Assessment and Plan: Continue with settings per home CPAP/BiPAP Plan Chest CT shows mild edema, mild pneumonia--continue treatment as above. Dialysis per regular schedule, consult Nephrology, appreciate any recommendations. PT/OT for continued strengthening and rehab Time Spent With Patient Time with patient: 25 - 35 minutes Subjective Date/time seen: 12/15/22 09:42 Interval history: This is an 82-year-old male patient with a history of end-stage renal disease on dialysis Tuesday who was admitted to the hospital for vomiting, chills and weakness while on dialysis yesterday. Patient brought to the emergency department found to have elevated white blood cell count and patchy lung opacities that may be atelectasis versus pneumonia. Patient also found to be in AFib RVR started on Cardizem Rocephin and azithromycin. Overnight patient reports that he be and feel better. He was given IV push Cardizem in ER, now with a heart rate in the 80s, still in atrial fibrillation on telemetry. Patient has a history of hypotension is on midodrine and on metoprolol heart rate control. Patient requesting physical therapy occupational therapy to work with him so he does not lose progress. He is currently at [facility] re[facility] and lives at [facility] assisted living and wants to get back to [facility] is soon as possible. Review of Systems R
[2022-12-15] MEDS: FUROSEMIDE 40 MG TABLET PO (12:14)
[2022-12-15] MEDS: NYSTATIN 100,000 UNITS/ML SUSP 5 ML ORAL.SUSP PO ×3 (12:15→20:40)
--- NOTE | 2022-12-15 13:35 | PM.CNNEP ---
Assessment and Plan Assessment and plan (1) End stage renal disease: Code(s): N18.6 - End stage renal disease Status: Chronic Assessment and Plan: HD tomorrow plan continue T/T/S schedule while hospitalized follow electrolytes, volume status, and clearance (2) Pneumonia: Code(s): J18.9 - Pneumonia, unspecified organism Status: Acute Assessment and Plan: suggested by CXR in association of fever follow culture data on antibiotics (3) Atrial fibrillation with rapid ventricular response: Code(s): I48.91 - Unspecified atrial fibrillation Status: Chronic Assessment and Plan: rate control strategy relative hypotension can make this difficult to treat on anticoagulation (4) Hypotension: Qualifiers: Hypotension type: unspecified hypotension type Qualified Code(s): I95.9 - Hypotension, unspecified Code(s): I95.9 - Hypotension, unspecified Status: Chronic Assessment and Plan: on midodrine therapy follow jtrend of hemodynamics (5) Anemia: Code(s): D64.9 - Anemia, unspecified Status: Chronic Assessment and Plan: due to ESRD Epogen with HD follow H/H I will continue to follow the patient with you while he remains hospitalized and make further recommendations as needed. Thank you for allowing me to participate in care this patient. History of Present Illness Reason for Consult Consult date: 12/15/22 Reason for consult: end stage renal disease Chief Complaint Chief complaint: Afib RVR/Pneumonia History of Present Illness Narrative: The patient is a 2-year-old male with a past medical history as outlined below who presented to [facility] Emergency Room for further evaluation of nausea and vomiting and generalized weakness. The patient tended his regularly scheduled dialysis treatment yesterday but had and treatment early due to persistent nausea and vomiting. Since the discontinuation of that dialysis treatment he also is reports generalized weakness that seems to have progressively worsened. He currently resides at assisted living and apparently the nurses there also noted that he was quite tachycardic. As he is known to have atrial fibrillation and with the noted symptoms, he was taken to the emergency room for further assessment. Workup and evaluation emergency room demonstrated the patient be hemodynamically stable but he was febrile with a temperature of 101.8?. His CBC showed a mildly elevated white blood cell count and anemia consistent with his known history of end-stage renal disease. His chemistry also was consistent with his known history of end-stage renal disease with no apparent critical electrolyte abnormalities. A chest x-ray demonstrated mild interstitial edema as well as patchy lower lung opacities which may represent atelectasis or consolidation in association with small pleural effusions. He was also noted by EKG to be in atrial fibrillation with RVR. He was given IV Cardizem for rate control and started on IV antibiotic therapy after appropriate cultures were obtained given the concern for pneumonia. IV antiemetics were given for his nausea/vomiting. He was subsequently admitted to the hospital for further evaluation and therapy. Renal consultation was requested due to his end stage renal disease. The patient is quite familiar to me as I take care of his outpatient dialysis needs. On his last hospitalization in May 2022, the patient suffered acute kidney injury on top of his baseline kidney disease which was discovered to be due to biopsy-proven ANCA glomerulonephritis, specifically microscopic polyangiitis based on his serological evaluation. He was initiated on immunosuppressive therapy in the form of cyclophosphamide and steroids along with dialysis but unfortunately, his kidney function failed to recoever and he transitioned to end stage renal disease. He cur
[2022-12-15] MEDS: AZITHROMYCIN 500 MG/NS 250 ML 500 MG/250 ML BAG 250 MG IVPB (18:30)
[2022-12-16] VITALS (39 sets, daily range): BP systolic 70–117; BP diastolic 45–83; PULSE 78–124; RESP 16–22; TEMP 36–37; O2SAT 93–100
[2022-12-16] MEDS: ALBUTEROL SULFATE NEB 2.5 MG/3 ML INH INHALATION ×4 (01:37→20:45)
[2022-12-16] MEDS: IPRATROPIUM BR 0.02% INH SOLN 0.5 MG/2.5 ML VIAL INHALATION ×4 (01:37→20:45)
[2022-12-16 04:44] LABS: Basophils Percent Auto 0.5 % (0.2-1.2); Eosinophils Absolute Auto 0.1 K/mm3 (0-0.3); Eosinophils Percent Auto 1.7 % (0-4.4); Hematocrit 29.9 % (42.0-52.0); Hemoglobin 9.2 g/dL (14.0-18.0); Immature Granulocyte Absolute 0.04 K/mm3 (0.00-0.031); Immature Granulocyte Percent A 0.5 % (0-0.5); Immature Platelet Fraction Pct 5.1 % (0.9-11.2); Lymphocytes Absolute Auto 0.63 K/mm3 (0.9-3.2); Lymphocytes Percent Auto 8.1 % (18.3-44.2); Mean Corpuscular HGB Conc 30.8 g/dl (32-36); Mean Corpuscular Hemoglobin 32.2 pg (26-34); Mean Corpuscular Volume 104.5 fl (80-100); Mean Platelet Volume 10.3 fl (7.4-10.4); Monocytes Absolute Auto 1.2 K/mm3 (0.1-0.6); Monocytes Percent Auto 15.3 % (2.6-8.5); Neutrophils Absolute Auto 5.8 K/mm3 (1.3-6.7); Neutrophils Percent Auto 73.9 % (45.5-73.1); Platelet Count Result 132 k/mm3 (150-375); Red Blood Count 2.86 M/mm3 (4.6-6.20); White Blood Count 7.8 K/mm3 (4.5-10.0)
[2022-12-16 05:04] LABS: Alanine Aminotransferase 15 U/L (6-50); Albumin Level 2.6 g/dL (3.5-5.1); Alkaline Phosphatase 59 U/L (38-126); Anion Gap 5 mmol/L (8-16); Aspartate Amino Transferase 19 U/L (17-59); Bilirubin,Total 0.4 mg/dL (0.2-1.3); Blood Urea Nitrogen 41 mg/dL (9-20); Calcium 8.1 mg/dL (8.4-10.2); Carbon Dioxide 30 mmol/L (22-30); Chloride 97 mmol/L (98-107); Estimated CRCL calculation 12 ml/min; Estimated Glomerular Filt Rate 9; Glucose 80 mg/dL (65-110); Potassium 4.5 mmol/L (3.4-5.0); Sodium 132 mmol/L (137-145)
[2022-12-16 05:53] LABS: Hepatitis B Surface Antigen Negative (Negative)
[2022-12-16 06:10] LABS: Hepatitis B Surface Anti Res Negative
[2022-12-16] MEDS: LIDOCAINE 5% PATCH 1 PATCH TRANSDERM (08:34)
[2022-12-16] MEDS: CALCIUM ACETATE 667 MG TABLET 1334 MG PO ×3 (08:35→17:21)
[2022-12-16] MEDS: OPTI-GEN TAB 1 TABLET PO (08:35)
[2022-12-16] MEDS: FAMOTIDINE 20 MG TABLET PO ×2 (08:36→17:21)
[2022-12-16] MEDS: OMEGA 3 POLYUNSAT FATTY ACIDS 1 GM CAP PO (08:36)
[2022-12-16] MEDS: FLUTICASONE PROPIONATE 0.05% NA SPR 16 GM BTL (*BKC) 1 SPRAY NASAL ×2 (08:36→21:24)
[2022-12-16] MEDS: FUROSEMIDE 40 MG TABLET PO (08:36)
[2022-12-16] MEDS: MIDODRINE HCL 2.5 MG TABLET 5 MG PO ×3 (08:36→17:21)
[2022-12-16] MEDS: METOPROLOL TARTRATE 25 MG TABLET PO ×2 (08:36→19:57)
[2022-12-16] MEDS: APIXABAN 2.5 MG TABLET PO ×2 (08:36→19:57)
[2022-12-16] MEDS: PANTOPRAZOLE 40 MG TABLET PO (08:36)
[2022-12-16] MEDS: NYSTATIN 100,000 UNITS/ML SUSP 5 ML ORAL.SUSP PO ×4 (08:38→19:58)
[2022-12-16] MEDS: SODIUM CHLORIDE 0.9% IV 1,000 ML 999 ML IV CONT (09:17)
[2022-12-16] MEDS: ALBUMIN HUMAN 25% 12.5 GM/50ML 50 ML IVPB ×3 (09:17→12:05)
--- NOTE | 2022-12-16 09:30 | PM.IMPN ---
Progress Note: A&P Assessment and Plan (1) Pneumonia: Code(s): J18.9 - Pneumonia, unspecified organism Status: Acute Assessment and Plan: Continue IV Zithromax and Rocephin, blood cultures in process, sputum culture ordered. (2) ESRD (end stage renal disease) on dialysis: Code(s): N18.6 - End stage renal disease; Z99.2 - Dependence on renal dialysis Status: Acute Assessment and Plan: Tuesday dialysis schedule, nephrology consult to continue. 8-patient hypotensive during dialysis session today (3) Atrial fibrillation: Qualifiers: Atrial fibrillation type: unspecified Qualified Code(s): I48.91 - Unspecified atrial fibrillation Code(s): I48.91 - Unspecified atrial fibrillation Status: Acute Assessment and Plan: Continue with Eliquis.? Continue with metoprolol. 12/16-Rate controlled in the 90s at time of evaluation (4) CHF (congestive heart failure): Qualifiers: Heart failure type: systolic Heart failure chronicity: chronic Qualified Code(s): I50.22 - Chronic systolic (congestive) heart failure Code(s): I50.9 - Heart failure, unspecified Status: Acute Assessment and Plan: Last echo . Complete two-dimensional, color flow and Doppler transthoracic echocardiogram is performed. ? 2. Left ventricular chamber dimension is normal. ? 3. Left ventricular systolic function is hyperdynamic, estimated at >70%. ? 4. There is mild concentric increased left ventricular wall thickness. ? 5. The left ventricular diastolic function is abnormal. ? 6. E/e' 11 is mildly elevated. ? 7. Atrial fibrillation. ? 8. Left atrial chamber dimension is moderately enlarged. ? 9. Right atrial chamber dimension is mildly enlarged. ? 10. There is severe aortic valve sclerosis. ? 11. There is severe aortic valve stenosis with a peak velocity of 315 cm/s, mean gradient of 25 mmHg, and aortic valve area of 0.6 cm2. ? 12. There is trace tricuspid valve regurgitation. ? 13. No pulmonary hypertension, estimated pulmonary arterial systolic pressure is 37 mmHg. Continue with Lasix and metoprolol (5) HTN (hypertension): Code(s): I10 - Essential (primary) hypertension Status: Chronic Assessment and Plan: The patient is on Lasix and metoprolol however he is also on midodrine for hypotension. (6) HLD (hyperlipidemia): Code(s): E78.5 - Hyperlipidemia, unspecified Status: Acute Assessment and Plan: Continue with heart healthy diet (7) JUVE (obstructive sleep apnea): Code(s): G47.33 - Obstructive sleep apnea (adult) (pediatric) Status: Acute Assessment and Plan: Continue with settings per home CPAP/BiPAP Plan Chest CT shows mild edema, mild pneumonia--continue treatment as above. Dialysis per regular schedule, consult Nephrology, appreciate any recommendations. PT/OT for continued strengthening and rehab Patient likely to return to [facility] to complete skilled rehab prior to going home to [facility] living Time Spent With Patient Time with patient: 25 - 35 minutes Subjective Date/time seen: 12/16/22 09:30 Interval history: 12/15: This is an 82-year-old male patient with a history of end-stage renal disease on dialysis Tuesday who was admitted to the hospital for vomiting, chills and weakness while on dialysis yesterday. Patient brought to the emergency department found to have elevated white blood cell count and patchy lung opacities that may be atelectasis versus pneumonia. Patient also found to be in AFib RVR started on Cardizem Rocephin and azithromycin. Overnight patient reports that he be and feel better. He was given IV push Cardizem in ER, now with a heart rate in the 80s, still in atrial fibrillation on telemetry. Patient has a history of hypotension is on midodrine and on metoprolol heart rate control. Patient requesting physical therapy oc
--- NOTE | 2022-12-16 10:10 | PCPTNOTE ---
Attempted PT evaluation, pt at dialysis. Will follow.
[2022-12-16] MEDS: ACETAMINOPHEN 325 MG TABLET 650 MG PO (10:30)
[2022-12-16] MEDS: MIDODRINE HCL 10 MG TABLET PO (10:30)
--- NOTE | 2022-12-16 12:22 | PM.PNNEP ---
Progress Note: A&P Assessment and Plan (1) End stage renal disease: Code(s): N18.6 - End stage renal disease Status: Chronic Assessment and Plan: HD today plan continue T/T/S schedule while hospitalized follow electrolytes, volume status, and clearance consider DUF (dry ultrafiltration) tomorrow for further fluid removal (2) Pneumonia: Code(s): J18.9 - Pneumonia, unspecified organism Status: Acute Assessment and Plan: suggested by CXR in association of fever CT of chest reviewed as well follow culture data on antibiotics (3) Atrial fibrillation with rapid ventricular response: Code(s): I48.91 - Unspecified atrial fibrillation Status: Chronic Assessment and Plan: rate control strategy relative hypotension can make this difficult to treat on anticoagulation (4) Hypotension: Qualifiers: Hypotension type: unspecified hypotension type Qualified Code(s): I95.9 - Hypotension, unspecified Code(s): I95.9 - Hypotension, unspecified Status: Chronic Assessment and Plan: on midodrine therapy follow jtrend of hemodynamics (5) Anemia: Code(s): D64.9 - Anemia, unspecified Status: Chronic Assessment and Plan: due to ESRD Epogen with HD follow H/H (6) Weakness: Code(s): R53.1 - Weakness Status: Acute Assessment and Plan: PT/OT as tolerated Will continue to follow. Subjective Date/time seen: 12/16/22 12:22 Interval history: Follow-up for end stage renal disease on hemodialysis. Tolerating hemodialysis treatment at the time of my visit (seen on HD at ~ 12:15PM); initially quite hypotension at the start of treatment (but was also give metoprolol earlier this AM), received IV Albumin and extra dose of midodrin which helped his blood pressure and allowed for fluid removal; he states he feels better with ongoing fluid removal; report poor sleep overnight but he was not able to elaborate; no apparent distress noted. Exam Narrative: General: WD/WN elderly male in NAD Heart: normal S1 and S2; irregular irregular; no rub Lungs: clear anteriorly, decreased at bases Abdomen: soft, nontender, nondistended, positive bowel sounds Extremities: no cyanosis or clubbing; 1 - 2+ edema Skin: warm and dry Objective Data Vital Signs Vital Signs: Vital Signs Temp Pulse Resp BP Pulse Ox O2 Del Method O2 Flow Rate 12/16/22 12:20 97 95/64 L 12/16/22 12:03 95 81/55 L 12/16/22 11:40 105 H 89/63 L 12/16/22 11:20 100 88/61 L 12/16/22 11:00 96 101/69 12/16/22 10:40 96 99/62 L 12/16/22 10:20 94 73/49 L 12/16/22 10:00 98 83/48 L 12/16/22 09:40 98 75/54 L 12/16/22 09:20 96 79/54 L 12/16/22 09:17 106 H 79/50 L 12/16/22 09:00 97.8 F 104 H 16 70/45 L 12/16/22 09:00 2 12/16/22 05:45 86 12/16/22 04:00 97.2 F L 87 20 101/62 100 12/16/22 04:00 91 18 98 Nasal Cannula 2 12/16/22 04:00 91 12/16/22 02:00 78 12/16/22 01:48 86 18 12/16/22 01:37 88 18 12/15/22 23:31 88 20 98 Nasal Cannula 2 12/15/22 23:31 88 12/15/22 22:45 97 F L 100 20 99/63 L 98 12/15/22 21:28 94 12/15/22 20:00 95 20 98 Nasal Cannula 2 12/15/22 20:00 95 12/15/22 20:40 100 12/15/22 20:00 97.7 F 95 20 96/75 L 98 12/15/22 19:59 90 18 12/15/22 19:49 96 Nasal Cannula 2 12/15/22 19:47 92 18 12/15/22 18:00 79 12/15/22 16:00 99 Nasal Cannula 2 12/15/22 16:00 82 12/15/22 16:00 98 F 72 18 96/66 L 99 12/15/22 14:00 87 12/15/22 14:08 94 16 12/15/22 13:59 91 16 Intake/Output Intake/Output: Intake & Output 12/13/22 12/14/22 12/15/22 12/16/22 23:59 23:59 23:59 23:59 Intake Total 50 1500 340 Output Total 0 100 Bal
--- NOTE | 2022-12-16 12:29 | PCOTNOTE ---
Attempted OT eval, patient at dialysis at 12:29. Will follow.
[2022-12-16] MEDS: HEPARIN SODIUM 1,000 UNITS/ML VIAL 1000 UNITS (13:00)
[2022-12-16] MEDS: HEPARIN SODIUM 1,000 UNITS/ML VIAL 4000 UNITS (13:01)
[2022-12-16] MEDS: AZITHROMYCIN 500 MG/NS 250 ML 500 MG/250 ML BAG 250 MG IVPB (17:29)
[2022-12-17] VITALS (35 sets, daily range): BP systolic 93–127; BP diastolic 56–97; PULSE 67–108; RESP 12–22; TEMP 34.8–36.7; O2SAT 94–99
[2022-12-17] MEDS: IPRATROPIUM BR 0.02% INH SOLN 0.5 MG/2.5 ML VIAL INHALATION ×4 (02:40→20:07)
[2022-12-17] MEDS: ALBUTEROL SULFATE NEB 2.5 MG/3 ML INH INHALATION ×4 (02:40→20:07)
[2022-12-17 05:23] LABS: Basophils Percent Auto 0.9 % (0.2-1.2); Eosinophils Absolute Auto 0.2 K/mm3 (0-0.3); Eosinophils Percent Auto 3.4 % (0-4.4); Hematocrit 28.5 % (42.0-52.0); Hemoglobin 8.7 g/dL (14.0-18.0); Immature Granulocyte Absolute 0.02 K/mm3 (0.00-0.031); Immature Granulocyte Percent A 0.4 % (0-0.5); Lymphocytes Absolute Auto 0.65 K/mm3 (0.9-3.2); Lymphocytes Percent Auto 14.6 % (18.3-44.2); Mean Corpuscular HGB Conc 30.5 g/dl (32-36); Mean Corpuscular Hemoglobin 31.8 pg (26-34); Mean Platelet Volume 10.4 fl (7.4-10.4); Monocytes Absolute Auto 0.8 K/mm3 (0.1-0.6); Monocytes Percent Auto 18.6 % (2.6-8.5); Neutrophils Absolute Auto 2.8 K/mm3 (1.3-6.7); Neutrophils Percent Auto 62.1 % (45.5-73.1); Platelet Count Result 128 k/mm3 (150-375); Red Blood Count 2.74 M/mm3 (4.6-6.20); Red Cell Distribution Width 15.1 % (11.5-14.5); White Blood Count 4.5 K/mm3 (4.5-10.0)
[2022-12-17 05:40] LABS: Alanine Aminotransferase 14 U/L (6-50); Albumin Level 2.8 g/dL (3.5-5.1); Alkaline Phosphatase 50 U/L (38-126); Anion Gap 4 mmol/L (8-16); Aspartate Amino Transferase 19 U/L (17-59); Bilirubin,Total 0.4 mg/dL (0.2-1.3); Blood Urea Nitrogen 24 mg/dL (9-20); Calcium 8.4 mg/dL (8.4-10.2); Carbon Dioxide 28 mmol/L (22-30); Chloride 102 mmol/L (98-107); Estimated CRCL calculation 17 ml/min; Estimated Glomerular Filt Rate 14; Glucose 77 mg/dL (65-110); Potassium 4.3 mmol/L (3.4-5.0); Sodium 134 mmol/L (137-145)
[2022-12-17] MEDS: LIDOCAINE 5% PATCH 1 PATCH TRANSDERM (08:18)
[2022-12-17] MEDS: NYSTATIN 100,000 UNITS/ML SUSP 5 ML ORAL.SUSP PO ×4 (08:18→20:40)
[2022-12-17] MEDS: ACETAMINOPHEN 325 MG TABLET 650 MG PO ×2 (08:18→13:14)
[2022-12-17] MEDS: MIDODRINE HCL 2.5 MG TABLET 5 MG PO ×3 (08:19→17:15)
[2022-12-17] MEDS: METOPROLOL TARTRATE 25 MG TABLET PO ×2 (08:19→20:40)
[2022-12-17] MEDS: PANTOPRAZOLE 40 MG TABLET PO (08:19)
[2022-12-17] MEDS: FAMOTIDINE 20 MG TABLET PO ×2 (08:19→17:14)
[2022-12-17] MEDS: APIXABAN 2.5 MG TABLET PO ×2 (08:19→20:40)
[2022-12-17] MEDS: CALCIUM ACETATE 667 MG TABLET 1334 MG PO ×3 (08:19→17:14)
[2022-12-17] MEDS: OPTI-GEN TAB 1 TABLET PO (08:19)
[2022-12-17] MEDS: FUROSEMIDE 40 MG TABLET PO (08:19)
[2022-12-17] MEDS: FLUTICASONE PROPIONATE 0.05% NA SPR 16 GM BTL (*BKC) 1 SPRAY NASAL ×2 (08:20→20:41)
[2022-12-17] MEDS: OMEGA 3 POLYUNSAT FATTY ACIDS 1 GM CAP PO (08:20)
[2022-12-17] MEDS: ALBUMIN HUMAN 25% 12.5 GM/50ML 50 ML IVPB ×2 (09:40→10:10)
--- NOTE | 2022-12-17 09:52 | PCOTNOTE ---
Attempted OT eval at 9:52, pt. in dialysis. Will follow.
--- NOTE | 2022-12-17 11:53 | PM.IMPN ---
Progress Note: A&P Assessment and Plan (1) End stage renal disease: Code(s): N18.6 - End stage renal disease Status: Chronic Assessment and Plan: HD today plan continue T/T/S schedule while hospitalized follow electrolytes, volume status, and clearance consider DUF (dry ultrafiltration) tomorrow for further fluid removal Plan deferred to Nephrology (2) Pneumonia: Code(s): J18.9 - Pneumonia, unspecified organism Status: Acute Assessment and Plan: suggested by CXR in association of fever CT of chest reviewed as well follow culture data on antibiotics Blood culture 1 of 2 draws, anaerobic only, Gram-positive cocci clusters. Vancomycin started until further identification or sensitivity (3) Atrial fibrillation with rapid ventricular response: Code(s): I48.91 - Unspecified atrial fibrillation Status: Chronic Assessment and Plan: rate control strategy relative hypotension can make this difficult to treat on anticoagulation (4) Hypotension: Qualifiers: Hypotension type: unspecified hypotension type Qualified Code(s): I95.9 - Hypotension, unspecified Code(s): I95.9 - Hypotension, unspecified Status: Chronic Assessment and Plan: on midodrine therapy follow trend of hemodynamics (5) Anemia: Code(s): D64.9 - Anemia, unspecified Status: Chronic Assessment and Plan: due to ESRD Epogen with HD follow H/H (6) Weakness: Code(s): R53.1 - Weakness Status: Acute Assessment and Plan: PT/OT as tolerated Will continue to follow. (7) HLD (hyperlipidemia): Code(s): E78.5 - Hyperlipidemia, unspecified Status: Acute Assessment and Plan: Continue with heart healthy diet (8) JUVE (obstructive sleep apnea): Code(s): G47.33 - Obstructive sleep apnea (adult) (pediatric) Status: Acute Assessment and Plan: Continue with settings per home CPAP/BiPAP Time Spent With Patient Time with patient: 25 - 35 minutes Subjective Date/time seen: 12/17/22 11:53 Interval history: 12/15: This is an 82-year-old male patient with a history of end-stage renal disease on dialysis Tuesday who was admitted to the hospital for vomiting, chills and weakness while on dialysis yesterday. Patient brought to the emergency department found to have elevated white blood cell count and patchy lung opacities that may be atelectasis versus pneumonia. Patient also found to be in AFib RVR started on Cardizem Rocephin and azithromycin. Overnight patient reports that he be and feel better. He was given IV push Cardizem in ER, now with a heart rate in the 80s, still in atrial fibrillation on telemetry. Patient has a history of hypotension is on midodrine and on metoprolol heart rate control. Patient requesting physical therapy occupational therapy to work with him so he does not lose progress. He is currently at [facility] for acute rehab and lives at [facility] and wants to get back to [facility] is soon as possible. 12/16: Patient seen this morning while getting hooked up to dialysis machine. He states he did not rest very well overnight. He denies any difficulty breathing or chest pain. He denies dizziness nausea or vomiting. Patient denies any other acute events. Of note, was notified during dialysis session the patient's blood pressure had dropped. Nephrology ordered additional midodrine and albumin which was administered by nursing staff. 12/17: Blood cultures result positive 1 of 2, aerobic only with Gram positive cocci in clusters. Ordered vancomycin out of caution for possible MRSA. Will watch for speciation and cultures. Patient drowsy after hemofiltration session. No fever chills. No significant complaints. Occasional cough no difficulty breathing. Review of Systems Review of Systems: All systems reviewed & are
--- NOTE | 2022-12-17 12:40 | PM.PNNEP ---
Progress Note: A&P Assessment and Plan (1) End stage renal disease: Code(s): N18.6 - End stage renal disease Status: Chronic Assessment and Plan: HD tomorrow plan to continue T/T/S schedule while hospitalized follow electrolytes, volume status, and clearance DUF (dry ultrafiltration) today for further fluid removal (2) Pneumonia: Code(s): J18.9 - Pneumonia, unspecified organism Status: Acute Assessment and Plan: suggested by CXR in association of fever CT of chest reviewed as well follow culture data - 1 out of 2 culture positive for GPC - real versus contaminant? follow identification on antibiotics (3) Atrial fibrillation with rapid ventricular response: Code(s): I48.91 - Unspecified atrial fibrillation Status: Chronic Assessment and Plan: rate control strategy relative hypotension can make this difficult to treat on anticoagulation (4) Hypotension: Qualifiers: Hypotension type: unspecified hypotension type Qualified Code(s): I95.9 - Hypotension, unspecified Code(s): I95.9 - Hypotension, unspecified Status: Chronic Assessment and Plan: on midodrine therapy follow jtrend of hemodynamics (5) Anemia: Code(s): D64.9 - Anemia, unspecified Status: Chronic Assessment and Plan: due to ESRD Epogen with HD follow H/H (6) Weakness: Code(s): R53.1 - Weakness Status: Acute Assessment and Plan: PT/OT as tolerated Will continue to follow. Subjective Date/time seen: 12/17/22 12:40 Interval history: Follow-up for end stage renal disease on hemodialysis. Tolerating dry ultrafiltration treatment at the time of my visit (seen on DUF at ~ 12:30PM); blood pressure seems to be tolerating fluid removal; no apparent distress noted; no issues/events overnight or earlier this morning; feels pretty good. Exam Narrative: General: elderly but WD/WN elderly male in NAD Heart: normal S1 and S2; irregular irregular; no rub Lungs: clear anteriorly, decreased at bases Abdomen: soft, nontender, nondistended, positive bowel sounds Extremities: no cyanosis or clubbing; 1+ edema Skin: warm and intact Objective Data Vital Signs Vital Signs: Vital Signs Temp Pulse Resp BP Pulse Ox O2 Del Method O2 Flow Rate 12/17/22 12:00 81 127/94 H 12/17/22 12:00 83 12/17/22 08:00 108 H 12/17/22 10:00 89 12/17/22 08:00 95 Room Air 12/17/22 11:40 84 125/93 H 12/17/22 11:20 85 126/90 12/17/22 11:00 86 112/92 H 12/17/22 10:40 85 108/82 12/17/22 10:20 88 102/76 12/17/22 10:00 78 103/82 12/17/22 09:40 83 104/74 12/17/22 09:37 78 102/71 12/17/22 09:30 97.7 F 95 18 98/73 L 12/17/22 08:54 98.1 F 104 H 18 95/67 L 95 12/17/22 08:41 91 18 12/17/22 08:36 95 Room Air 12/17/22 08:20 94 18 12/17/22 08:19 101 H 12/17/22 05:36 106 H 12/17/22 04:00 97.1 F L 99 22 H 93/77 L 98 12/17/22 03:48 96 18 99 Nasal Cannula 2 12/17/22 03:48 94 12/17/22 02:00 76 12/17/22 02:50 88 18 12/17/22 02:40 84 18 12/16/22 20:50 94 Nasal Cannula 2 12/17/22 00:00 93 22 H 99 Nasal Cannula 2 12/17/22 00:00 93 12/16/22 23:43 97.5 F L 92 22 H 117/80 99 12/16/22 21:23 92 12/16/22 20:00 97 22 H 98 Nasal Cannula 2 12/16/22 20:00 97 12/16/22 20:57 89 18 12/16/22 20:45 86 18 12/16/22 20:00 96.8 F L 99 22 H 100/72 98 12/16/22 19:57 98 12/16/22 17:52 98 12/16/22 16:00 93 12/16/22 16:00 96 Nasal Cannula 2 12/16/22 16:00 98.2 F 103 H 18 94/61 L 99 12/16/22 14:07 87 18 12/16/22 14:07 98.2 F 87 16 85/68 L 100 12/16/22 14:00 93 12/16/22 13:54 93 18 12/16/22 13:2
--- NOTE | 2022-12-17 12:40 | P.PNNP_ITS ---
Progress Note: A&P Assessment and Plan (1) End stage renal disease: Code(s): N18.6 - End stage renal disease Status: Chronic Assessment and Plan: * HD tomorrow * plan to continue T/T/S schedule while hospitalized * follow electrolytes, volume status, and clearance * DUF (dry ultrafiltration) today for further fluid removal (2) Pneumonia: Code(s): J18.9 - Pneumonia, unspecified organism Status: Acute Assessment and Plan: * suggested by CXR in association of fever * CT of chest reviewed as well * follow culture data - 1 out of 2 culture positive for GPC - real versus contaminant? * follow identification * on antibiotics (3) Atrial fibrillation with rapid ventricular response: Code(s): I48.91 - Unspecified atrial fibrillation Status: Chronic Assessment and Plan: * rate control strategy * relative hypotension can make this difficult to treat * on anticoagulation (4) Hypotension: Qualifiers: Hypotension type: unspecified hypotension type Qualified Code(s): I95.9 - Hypotension, unspecified Code(s): I95.9 - Hypotension, unspecified Status: Chronic Assessment and Plan: * on midodrine therapy * follow jtrend of hemodynamics (5) Anemia: Code(s): D64.9 - Anemia, unspecified Status: Chronic Assessment and Plan: * due to ESRD * Epogen with HD * follow H/H (6) Weakness: Code(s): R53.1 - Weakness Status: Acute Assessment and Plan: * PT/OT as tolerated Will continue to follow. Subjective Date/time seen: 12/17/22 12:40 Interval history: Follow-up for end stage renal disease on hemodialysis. Tolerating dry ultrafiltration treatment at the time of my visit (seen on DUF at ~ 12:30PM); blood pressure seems to be tolerating fluid removal; no apparent distress noted; no issues/events overnight or earlier this morning; feels pretty good. Exam Narrative: General: elderly but WD/WN elderly male in NAD Heart: normal S1 and S2; irregular irregular; no rub Lungs: clear anteriorly, decreased at bases Abdomen: soft, nontender, nondistended, positive bowel sounds Extremities: no cyanosis or clubbing; 1+ edema Skin: warm and intact Objective Data Vital Signs Vital Signs: Vital Signs Temp Pulse Resp BP Pulse Ox O2 Del Method O2 Flow Rate 12/17/22 12:00 81 127/94 H 12/17/22 12:00 83 12/17/22 08:00 108 H 12/17/22 10:00 89 12/17/22 08:00 95 Room Air 12/17/22 11:40 84 125/93 H 12/17/22 11:20 85 126/90 12/17/22 11:00 86 112/92 H 12/17/22 10:40 85 108/82 12/17/22 10:20 88 102/76 12/17/22 10:00 78 103/82 12/17/22 09:40 83 104/74 12/17/22 09:37 78 102/71 12/17/22 09:30 97.7 F 95 18 98/73 L 12/17/22 08:54 98.1 F 104 H 18 95/67 L 95 12/17/22 08:41 91 18 12/17/22 08:36 95 Room Air 12/17/22 08:20 94 18 12/17/22 08:19 101 H 12/17/22 05:36 106 H 12/17/22 04:00 97.1 F L 99 22 H 93/77 L 98 12/17/22 03:48 96 18 99 Nasal Cannula 2 12/17/22 03:48 94 12/17/22 02:00 76 08
[2022-12-17] MEDS: AZITHROMYCIN 500 MG/NS 250 ML 500 MG/250 ML BAG 250 MG IVPB (17:57)
[2022-12-17] MEDS: traMADol HCL (*CRX) 50 MG TABLET PO (23:19)
[2022-12-18] VITALS (41 sets, daily range): BP systolic 91–148; BP diastolic 58–99; PULSE 77–114; RESP 16–22; TEMP 35.7–36.7; O2SAT 97–100
[2022-12-18] MEDS: IPRATROPIUM BR 0.02% INH SOLN 0.5 MG/2.5 ML VIAL INHALATION ×4 (01:24→22:07)
[2022-12-18] MEDS: ALBUTEROL SULFATE NEB 2.5 MG/3 ML INH INHALATION ×4 (01:24→22:14)
[2022-12-18 05:41] LABS: Eosinophils Absolute Auto 0.2 K/mm3 (0-0.3); Eosinophils Percent Auto 4.5 % (0-4.4); Hematocrit 29.6 % (42.0-52.0); Hemoglobin 8.9 g/dL (14.0-18.0); Immature Granulocyte Absolute 0.02 K/mm3 (0.00-0.031); Immature Granulocyte Percent A 0.5 % (0-0.5); Lymphocytes Absolute Auto 0.68 K/mm3 (0.9-3.2); Lymphocytes Percent Auto 16.2 % (18.3-44.2); Mean Corpuscular HGB Conc 30.1 g/dl (32-36); Mean Corpuscular Hemoglobin 30.9 pg (26-34); Mean Corpuscular Volume 102.8 fl (80-100); Mean Platelet Volume 10.2 fl (7.4-10.4); Monocytes Absolute Auto 0.8 K/mm3 (0.1-0.6); Neutrophils Absolute Auto 2.5 K/mm3 (1.3-6.7); Neutrophils Percent Auto 58.8 % (45.5-73.1); Platelet Count Result 143 k/mm3 (150-375); Red Blood Count 2.88 M/mm3 (4.6-6.20); White Blood Count 4.2 K/mm3 (4.5-10.0)
[2022-12-18 05:58] LABS: Alanine Aminotransferase 13 U/L (6-50); Alkaline Phosphatase 50 U/L (38-126); Anion Gap 4 mmol/L (8-16); Aspartate Amino Transferase 19 U/L (17-59); Bilirubin,Total 0.4 mg/dL (0.2-1.3); Blood Urea Nitrogen 29 mg/dL (9-20); Calcium 8.6 mg/dL (8.4-10.2); Carbon Dioxide 27 mmol/L (22-30); Chloride 101 mmol/L (98-107); Estimated CRCL calculation 14 ml/min; Estimated Glomerular Filt Rate 11; Glucose 76 mg/dL (65-110); Sodium 132 mmol/L (137-145)
[2022-12-18 06:56] LABS: Vancomycin Random 16.6 ug/mL (10-20)
[2022-12-18] MEDS: LIDOCAINE 5% PATCH 1 PATCH TRANSDERM (08:11)
[2022-12-18] MEDS: NYSTATIN 100,000 UNITS/ML SUSP 5 ML ORAL.SUSP PO ×4 (08:11→21:45)
[2022-12-18] MEDS: METOPROLOL TARTRATE 25 MG TABLET PO ×2 (08:11→21:46)
[2022-12-18] MEDS: OMEGA 3 POLYUNSAT FATTY ACIDS 1 GM CAP PO (08:11)
[2022-12-18] MEDS: MIDODRINE HCL 2.5 MG TABLET 5 MG PO ×3 (08:12→17:01)
[2022-12-18] MEDS: APIXABAN 2.5 MG TABLET PO ×2 (08:12→21:46)
[2022-12-18] MEDS: FUROSEMIDE 40 MG TABLET PO (08:12)
[2022-12-18] MEDS: ACETAMINOPHEN 325 MG TABLET 650 MG PO ×2 (08:12→13:51)
[2022-12-18] MEDS: CALCIUM ACETATE 667 MG TABLET 1334 MG PO ×3 (08:12→17:01)
[2022-12-18] MEDS: FAMOTIDINE 20 MG TABLET PO ×2 (08:12→17:01)
[2022-12-18] MEDS: OPTI-GEN TAB 1 TABLET PO (08:12)
[2022-12-18] MEDS: PANTOPRAZOLE 40 MG TABLET PO (08:13)
[2022-12-18] MEDS: polyethylene glycoL 3350 17 GM POWD.PACK PO (08:13)
[2022-12-18] MEDS: FLUTICASONE PROPIONATE 0.05% NA SPR 16 GM BTL (*BKC) 1 SPRAY NASAL ×2 (08:14→21:46)
--- NOTE | 2022-12-18 10:51 | PM.IMPN ---
Progress Note: A&P Assessment and Plan (1) End stage renal disease: Code(s): N18.6 - End stage renal disease Status: Chronic Assessment and Plan: Hemodialysis in a few minutes. plan to continue T/T/S schedule while hospitalized Volume status looks good. He had a dry ultrafiltration yesterday. Potassium is 5 (2) Pneumonia: Code(s): J18.9 - Pneumonia, unspecified organism Status: Acute Assessment and Plan: suggested by CXR in association of fever CT of chest reviewed as well follow culture data - 1 out of 2 culture positive for GPC - real versus contaminant? staph aureus grew sensitivities pending on Vancomycin (3) Atrial fibrillation with rapid ventricular response: Code(s): I48.91 - Unspecified atrial fibrillation Status: Chronic Assessment and Plan: rate control strategy relative hypotension can make this difficult to treat on anticoagulation (4) Hypotension: Qualifiers: Hypotension type: unspecified hypotension type Qualified Code(s): I95.9 - Hypotension, unspecified Code(s): I95.9 - Hypotension, unspecified Status: Chronic Assessment and Plan: on midodrine therapy follow trend of hemodynamics (5) Anemia: Code(s): D64.9 - Anemia, unspecified Status: Chronic Assessment and Plan: due to ESRD Epogen with HD hemoglobin 8.9 (6) Weakness: Code(s): R53.1 - Weakness Status: Acute Assessment and Plan: PT/OT as tolerated Will continue to follow. (7) HLD (hyperlipidemia): Code(s): E78.5 - Hyperlipidemia, unspecified Status: Acute Assessment and Plan: Continue with heart healthy diet (8) JUVE (obstructive sleep apnea): Code(s): G47.33 - Obstructive sleep apnea (adult) (pediatric) Status: Acute Assessment and Plan: Continue with settings per home CPAP/BiPAP Time Spent With Patient Time with patient: 25 - 35 minutes Subjective Date/time seen: 12/18/22 1500 Interval history: 12/15: This is an 82-year-old male patient with a history of end-stage renal disease on dialysis Tuesday who was admitted to the hospital for vomiting, chills and weakness while on dialysis yesterday. Patient brought to the emergency department found to have elevated white blood cell count and patchy lung opacities that may be atelectasis versus pneumonia. Patient also found to be in AFib RVR started on Cardizem Rocephin and azithromycin. Overnight patient reports that he be and feel better. He was given IV push Cardizem in ER, now with a heart rate in the 80s, still in atrial fibrillation on telemetry. Patient has a history of hypotension is on midodrine and on metoprolol heart rate control. Patient requesting physical therapy occupational therapy to work with him so he does not lose progress. He is currently at [facility] for acute rehab and lives at [facility] and wants to get back to [facility] is soon as possible. 12/16: Patient seen this morning while getting hooked up to dialysis machine. He states he did not rest very well overnight. He denies any difficulty breathing or chest pain. He denies dizziness nausea or vomiting. Patient denies any other acute events. Of note, was notified during dialysis session the patient's blood pressure had dropped. Nephrology ordered additional midodrine and albumin which was administered by nursing staff. 12/17: Blood cultures result positive 1 of 2, aerobic only with Gram positive cocci in clusters. Ordered vancomycin out of caution for possible MRSA. Will watch for speciation and cultures. Patient drowsy after hemofiltration session. No fever chills. No significant complaints. Occasional cough no difficulty breathing. 12/18: No fever chills today. Positive blood culture is Staphylococcus aureus, awaiting sensitivities. Patient continues on vancomycin a
--- NOTE | 2022-12-18 14:53 | P.PNNP_ITS ---
Progress Note: A&P Assessment and Plan (1) End stage renal disease: Code(s): N18.6 - End stage renal disease Status: Chronic Assessment and Plan: * Hemodialysis in a few minutes. * plan to continue T/T/S schedule while hospitalized * Volume status looks good. * He had a dry ultrafiltration yesterday. * Potassium is 5 (2) Pneumonia: Code(s): J18.9 - Pneumonia, unspecified organism Status: Acute Assessment and Plan: * suggested by CXR in association of fever * CT of chest reviewed as well * follow culture data - 1 out of 2 culture positive for GPC - real versus contaminant? * staph aureus grew * sensitivities pending * on Vancomycin (3) Atrial fibrillation with rapid ventricular response: Code(s): I48.91 - Unspecified atrial fibrillation Status: Chronic Assessment and Plan: * rate control strategy * relative hypotension can make this difficult to treat * on anticoagulation (4) Hypotension: Qualifiers: Hypotension type: unspecified hypotension type Qualified Code(s): I95.9 - Hypotension, unspecified Code(s): I95.9 - Hypotension, unspecified Status: Chronic Assessment and Plan: * on midodrine therapy * follow trend of hemodynamics (5) Anemia: Code(s): D64.9 - Anemia, unspecified Status: Chronic Assessment and Plan: * due to ESRD * Epogen with HD * hemoglobin 8.9 (6) Weakness: Code(s): R53.1 - Weakness Status: Acute Assessment and Plan: * PT/OT as tolerated Will continue to follow. Subjective Date/time seen: 12/18/22 14:53 Interval history: Arthur is feeling better today. No more fevers or chills. He is due for dialysis today. Exam Narrative: General: elderly but WD/WN elderly male in NAD Heart: normal S1 and S2; irregular irregular; no rub or gallop Lungs: clear anteriorly, decreased at bases Abdomen: soft, nontender, nondistended, positive bowel sounds Extremities: no cyanosis or clubbing; 1+ edema Skin: No rash Objective Data Vital Signs Vital Signs: Vital Signs - 24 hr 12/17/22 16:00 12/17/22 16:00 12/17/22 16:25 Temperature Pulse Rate 90 89 Respiratory Rate 18 Blood Pressure Pulse Oximetry 94 Oxygen Delivery Room Air Oxygen Flow Rate Fraction of Inspired Oxygen 12/17/22 16:38 08/04/23 17:56 12/17/22 20:07 Temperature 96.4 F L Pulse Rate 85 100 96 Respiratory Rate 12 18 Blood Pressure 103/62 Pulse Oximetry 94 96 Oxygen Delivery Nasal Cannula Oxygen Flow Rate 2 Fraction of Inspired Oxygen 28 12/17/22 20:07 12/17/22 20:00 12/17/22 20:40 Temperature 97.8 F Pulse Rate 96 104 H 94 Respiratory Rate 18 22 H Blood Pressure 93/58 L Pulse Oximetry 99 Oxygen Delivery Oxygen Flow Rate Fraction of Inspired Oxygen 12/17/22 20:00 12/17/22 20:17 12/18/22 00:00 Temperature 97.3 F L Pulse Rate 94 87 Respiratory Rate 18 22 H Blood Pressure 95/69 L Pulse Oximetry 96 99 Oxygen Delivery Nasal Can
--- NOTE | 2022-12-18 14:53 | PM.PNNEP ---
Progress Note: A&P Assessment and Plan (1) End stage renal disease: Code(s): N18.6 - End stage renal disease Status: Chronic Assessment and Plan: Hemodialysis in a few minutes. plan to continue T/T/S schedule while hospitalized Volume status looks good. He had a dry ultrafiltration yesterday. Potassium is 5 (2) Pneumonia: Code(s): J18.9 - Pneumonia, unspecified organism Status: Acute Assessment and Plan: suggested by CXR in association of fever CT of chest reviewed as well follow culture data - 1 out of 2 culture positive for GPC - real versus contaminant? staph aureus grew sensitivities pending on Vancomycin (3) Atrial fibrillation with rapid ventricular response: Code(s): I48.91 - Unspecified atrial fibrillation Status: Chronic Assessment and Plan: rate control strategy relative hypotension can make this difficult to treat on anticoagulation (4) Hypotension: Qualifiers: Hypotension type: unspecified hypotension type Qualified Code(s): I95.9 - Hypotension, unspecified Code(s): I95.9 - Hypotension, unspecified Status: Chronic Assessment and Plan: on midodrine therapy follow trend of hemodynamics (5) Anemia: Code(s): D64.9 - Anemia, unspecified Status: Chronic Assessment and Plan: due to ESRD Epogen with HD hemoglobin 8.9 (6) Weakness: Code(s): R53.1 - Weakness Status: Acute Assessment and Plan: PT/OT as tolerated Will continue to follow. Subjective Date/time seen: 12/18/22 14:53 Interval history: Arthur is feeling better today. No more fevers or chills. He is due for dialysis today. Exam Narrative: General: elderly but WD/WN elderly male in NAD Heart: normal S1 and S2; irregular irregular; no rub or gallop Lungs: clear anteriorly, decreased at bases Abdomen: soft, nontender, nondistended, positive bowel sounds Extremities: no cyanosis or clubbing; 1+ edema Skin: No rash Objective Data Vital Signs Vital Signs: Vital Signs - 24 hr 12/17/22 16:00 12/17/22 16:00 12/17/22 16:25 Temperature Pulse Rate 90 89 Respiratory Rate 18 Blood Pressure Pulse Oximetry 94 Oxygen Delivery Room Air Oxygen Flow Rate Fraction of Inspired Oxygen 12/17/22 16:38 12/17/22 17:56 12/17/22 20:07 Temperature 96.4 F L Pulse Rate 85 100 96 Respiratory Rate 12 18 Blood Pressure 103/62 Pulse Oximetry 94 96 Oxygen Delivery Nasal Cannula Oxygen Flow Rate 2 Fraction of Inspired Oxygen 28 12/17/22 20:07 12/17/22 20:00 12/17/22 20:40 Temperature 97.8 F Pulse Rate 96 104 H 94 Respiratory Rate 18 22 H Blood Pressure 93/58 L Pulse Oximetry 99 Oxygen Delivery Oxygen Flow Rate Fraction of Inspired Oxygen 12/17/22 20:00 12/17/22 20:17 12/18/22 00:00 Temperature 97.3 F L Pulse Rate 94 87 Respiratory Rate 18 22 H Blood Pressure 95/69 L Pulse Oximetry 96 99 Oxygen Delivery Nasal Cannula Oxygen Flow Rate 2 Fraction of Inspired Oxygen 12/18/22 01:24 12/17/22 20:00 12/17/22 22:00 Temperature Pulse Rate 93 86 105 H Respiratory Rate 16 Blood Pressure Pulse Oximetry Oxygen Delivery Oxygen Flow Rate Fraction of Inspired Oxygen 12/18/22 00:00 12/18/22 01:55 12/18/22 02:00 Temperature Pulse Rate 97 90 92 Respiratory Rate 16 Blood Pressure Pulse Oximetry Oxygen Delivery Oxygen Flow Rate Fraction of Inspired Oxygen 12/18/22 00:00 12/18/22 03:48 12/18/22 04:00 Temperature Pulse Rate 104 H Respiratory Rate Blood Pressure Pulse Oximetry 99 99 Oxygen Delivery Nasal Cannula Nasal Cannula Oxygen Flow Rate 2 2 Fraction of Inspired Oxygen 12/18/22 04:00 12/18/22 06:00 12/18/22 07:10 Temperature 97.6 F Pulse Rate 91 88 104 H Respiratory Rate 22 H 18 Blood Pressure 108/82
[2022-12-18] MEDS: ALBUMIN HUMAN 25% 12.5 GM/50ML 50 ML 50 GM (18:03)
[2022-12-18] MEDS: EPOETIN ALFA 10,000 UNITS/ML VIAL 10000 UNITS IV PUSH (20:12)
[2022-12-18] MEDS: VANCOMYCIN 1,000 MG/NS 250 ML BAG 250 MG IVPB (21:45)
[2022-12-18] MEDS: AZITHROMYCIN 500 MG/NS 250 ML 500 MG/250 ML BAG 250 MG IVPB (23:05)
[2022-12-19] VITALS (23 sets, daily range): BP systolic 90–116; BP diastolic 60–96; PULSE 90–126; RESP 12–22; TEMP 35.8–36.6; O2SAT 95–100
[2022-12-19] MEDS: ALBUTEROL SULFATE NEB 2.5 MG/3 ML INH INHALATION ×4 (04:05→19:27)
[2022-12-19] MEDS: IPRATROPIUM BR 0.02% INH SOLN 0.5 MG/2.5 ML VIAL INHALATION ×4 (04:06→19:27)
[2022-12-19 05:14] LABS: Eosinophils Absolute Auto 0.2 K/mm3 (0-0.3); Hematocrit 29.6 % (42.0-52.0); Hemoglobin 9.2 g/dL (14.0-18.0); Immature Granulocyte Absolute 0.02 K/mm3 (0.00-0.031); Immature Granulocyte Percent A 0.5 % (0-0.5); Mean Corpuscular HGB Conc 31.1 g/dl (32-36); Mean Corpuscular Hemoglobin 31.5 pg (26-34); Mean Corpuscular Volume 101.4 fl (80-100); Mean Platelet Volume 10.3 fl (7.4-10.4); Monocytes Absolute Auto 0.8 K/mm3 (0.1-0.6); Monocytes Percent Auto 19.2 % (2.6-8.5); Neutrophils Absolute Auto 2.2 K/mm3 (1.3-6.7); Neutrophils Percent Auto 55.3 % (45.5-73.1); Platelet Count Result 156 k/mm3 (150-375); Red Blood Count 2.92 M/mm3 (4.6-6.20); Red Cell Distribution Width 14.6 % (11.5-14.5)
[2022-12-19 05:23] LABS: Alanine Aminotransferase 14 U/L (6-50); Albumin Level 3.2 g/dL (3.5-5.1); Alkaline Phosphatase 56 U/L (38-126); Anion Gap 4 mmol/L (8-16); Aspartate Amino Transferase 21 U/L (17-59); Bilirubin,Total 0.3 mg/dL (0.2-1.3); Blood Urea Nitrogen 22 mg/dL (9-20); Calcium 8.5 mg/dL (8.4-10.2); Carbon Dioxide 32 mmol/L (22-30); Chloride 101 mmol/L (98-107); Estimated CRCL calculation 17 ml/min; Estimated Glomerular Filt Rate 13; Glucose 75 mg/dL (65-110); Phosphorus 2.8 mg/dL (2.5-4.5); Potassium 4.2 mmol/L (3.4-5.0); Sodium 137 mmol/L (137-145)
[2022-12-19] MEDS: APIXABAN 2.5 MG TABLET PO ×2 (10:19→20:16)
[2022-12-19] MEDS: CALCIUM ACETATE 667 MG TABLET 1334 MG PO ×3 (10:19→17:00)
[2022-12-19] MEDS: FLUTICASONE PROPIONATE 0.05% NA SPR 16 GM BTL (*BKC) 1 SPRAY NASAL ×2 (10:19→20:16)
[2022-12-19] MEDS: FAMOTIDINE 20 MG TABLET PO ×2 (10:19→17:00)
[2022-12-19] MEDS: LIDOCAINE 5% PATCH 1 PATCH TRANSDERM (10:20)
[2022-12-19] MEDS: METOPROLOL TARTRATE 25 MG TABLET PO ×2 (10:20→20:16)
[2022-12-19] MEDS: FUROSEMIDE 40 MG TABLET PO (10:20)
[2022-12-19] MEDS: OMEGA 3 POLYUNSAT FATTY ACIDS 1 GM CAP PO (10:21)
[2022-12-19] MEDS: MIDODRINE HCL 2.5 MG TABLET 5 MG PO ×3 (10:21→17:00)
[2022-12-19] MEDS: NYSTATIN 100,000 UNITS/ML SUSP 5 ML ORAL.SUSP PO ×4 (10:21→20:16)
[2022-12-19] MEDS: OPTI-GEN TAB 1 TABLET PO (10:22)
[2022-12-19] MEDS: polyethylene glycoL 3350 17 GM POWD.PACK PO (10:22)
[2022-12-19] MEDS: PANTOPRAZOLE 40 MG TABLET PO (10:23)
--- NOTE | 2022-12-19 13:46 | PM.IMPN ---
Progress Note: A&P Assessment and Plan (1) End stage renal disease: Code(s): N18.6 - End stage renal disease Status: Chronic Assessment and Plan: //Tue dialysis schedule Fluid restriction 1800 mL (2) Bacteremia due to methicillin susceptible Staphylococcus aureus (MSSA): Code(s): R78.81 - Bacteremia; B95.61 - Methicillin susceptible Staphylococcus aureus infection as the cause of diseases classified elsewhere Status: Acute Assessment and Plan: 12/19: MSSA present, antibiotics changed to Ancef 1 g daily while hospitalized then 2 g on Tuesday and with dialysis and 3 g on Tuesday with dialysis for MSSA bacteremia with likely source pneumonia or less likely dialysis line infection Repeat blood cultures ordered on 12/19 (3) Pneumonia: Code(s): J18.9 - Pneumonia, unspecified organism Status: Acute Assessment and Plan: suggested by CXR in association of fever CT of chest reviewed as well follow culture data - 1 out of 2 culture positive for GPC - real versus contaminant? staph aureus grew sensitivities pending Last dose of a Zithromax in today. Other antibiotics changed to Ancef (4) Atrial fibrillation with rapid ventricular response: Code(s): I48.91 - Unspecified atrial fibrillation Status: Chronic Assessment and Plan: rate control strategy relative hypotension can make this difficult to treat on anticoagulation (5) Hypotension: Qualifiers: Hypotension type: unspecified hypotension type Qualified Code(s): I95.9 - Hypotension, unspecified Code(s): I95.9 - Hypotension, unspecified Status: Chronic Assessment and Plan: on midodrine therapy follow trend of hemodynamics (6) Anemia: Code(s): D64.9 - Anemia, unspecified Status: Chronic Assessment and Plan: due to ESRD Epogen with HD hemoglobin 9.2 today (7) Weakness: Code(s): R53.1 - Weakness Status: Acute Assessment and Plan: PT/OT as tolerated Will continue to follow. (8) HLD (hyperlipidemia): Code(s): E78.5 - Hyperlipidemia, unspecified Status: Acute Assessment and Plan: Continue with heart healthy diet (9) JUVE (obstructive sleep apnea): Code(s): G47.33 - Obstructive sleep apnea (adult) (pediatric) Status: Acute Assessment and Plan: Continue with settings per home CPAP/BiPAP Time Spent With Patient Time with patient: 25 - 35 minutes Subjective Date/time seen: 12/19/22 13:46 Interval history: 12/15: This is an 82-year-old male patient with a history of end-stage renal disease on dialysis Tuesday who was admitted to the hospital for vomiting, chills and weakness while on dialysis yesterday. Patient brought to the emergency department found to have elevated white blood cell count and patchy lung opacities that may be atelectasis versus pneumonia. Patient also found to be in AFib RVR started on Cardizem Rocephin and azithromycin. Overnight patient reports that he be and feel better. He was given IV push Cardizem in ER, now with a heart rate in the 80s, still in atrial fibrillation on telemetry. Patient has a history of hypotension is on midodrine and on metoprolol heart rate control. Patient requesting physical therapy occupational therapy to work with him so he does not lose progress. He is currently at [facility] for acute rehab and lives at [facility] living and wants to get back to [facility] is soon as possible. 12/16: Patient seen this morning while getting hooked up to dialysis machine. He states he did not rest very well overnight. He denies any difficulty breathing or chest pain. He denies dizziness nausea or vomiting. Patient denies any other acute events. Of note, was notified during dialysis session the patient's blood pressure had dropped. Nephrology ordered additional midodrine and albumin whic
--- NOTE | 2022-12-19 13:49 | P.PNNP_ITS ---
Progress Note: A&P Assessment and Plan (1) End stage renal disease: Code(s): N18.6 - End stage renal disease Status: Chronic Assessment and Plan: * Hemodialysis in a few minutes. * plan to continue T/T/S schedule while hospitalized * Volume status looks good. * He had a dry ultrafiltration yesterday. * Potassium is 5 (2) Pneumonia: Code(s): J18.9 - Pneumonia, unspecified organism Status: Acute Assessment and Plan: * suggested by CXR in association of fever * CT of chest reviewed as well * follow culture data - 1 out of 2 culture positive for GPC - real versus contaminant? * staph aureus grew * sensitivities pending * on Vancomycin (3) Atrial fibrillation with rapid ventricular response: Code(s): I48.91 - Unspecified atrial fibrillation Status: Chronic Assessment and Plan: * rate control strategy * relative hypotension can make this difficult to treat * on anticoagulation (4) Hypotension: Qualifiers: Hypotension type: unspecified hypotension type Qualified Code(s): I95.9 - Hypotension, unspecified Code(s): I95.9 - Hypotension, unspecified Status: Chronic Assessment and Plan: * on midodrine therapy * follow trend of hemodynamics (5) Anemia: Code(s): D64.9 - Anemia, unspecified Status: Chronic Assessment and Plan: * due to ESRD * Epogen with HD * hemoglobin 8.9 (6) Weakness: Code(s): R53.1 - Weakness Status: Acute Assessment and Plan: * PT/OT as tolerated Will continue to follow. Subjective Date/time seen: 12/19/22 13:50 Interval history: Arthur is feeling okay. He is working with the physical therapists. No more fevers or chills. Exam Narrative: General: elderly but WD/WN elderly male in NAD Heart: normal S1 and S2; irregular irregular; no rub or gallop Lungs: clear a bilaterally Abdomen: soft, nontender, nondistended, positive bowel sounds Extremities: 1+ edema Skin: No rash Or subcu nodules Objective Data Vital Signs Vital Signs: Vital Signs - 24 hr 12/18/22 14:00 12/18/22 16:42 12/18/22 16:00 Temperature 96.4 F L Pulse Rate 93 98 105 H Respiratory Rate 21 H Blood Pressure 113/85 Pulse Oximetry 100 Oxygen Delivery Oxygen Flow Rate 12/18/22 16:00 08/05/23 18:00 12/18/22 17:16 Temperature Pulse Rate 95 Respiratory Rate Blood Pressure Pulse Oximetry 100 Oxygen Delivery Nasal Cannula Oxygen Flow Rate 2 2 12/18/22 17:16 12/18/22 21:46 12/18/22 21:45 Temperature 97.8 F Pulse Rate 94 103 H Respiratory Rate 17 Blood Pressure 121/87 Pulse Oximetry 100 Oxygen Delivery Nasal Cannula Oxygen Flow Rate 2 12/18/22 20:00 12/18/22 22:15 12/18/22 22:16 Temperature 96.9 F L Pulse Rate 100 98 Respiratory Rate 20 20 Blood Pressure 129/91 H Pulse Oximetry 100 97 Oxygen Delivery Nasal Cannula Oxygen Flow Rate 2 12/18/22 17:26 12/18/22 17:40 12/18/22 18:00 [place]
--- NOTE | 2022-12-19 13:49 | PM.PNNEP ---
Progress Note: A&P Assessment and Plan (1) End stage renal disease: Code(s): N18.6 - End stage renal disease Status: Chronic Assessment and Plan: Hemodialysis in a few minutes. plan to continue T/T/S schedule while hospitalized Volume status looks good. He had a dry ultrafiltration yesterday. Potassium is 5 (2) Pneumonia: Code(s): J18.9 - Pneumonia, unspecified organism Status: Acute Assessment and Plan: suggested by CXR in association of fever CT of chest reviewed as well follow culture data - 1 out of 2 culture positive for GPC - real versus contaminant? staph aureus grew sensitivities pending on Vancomycin (3) Atrial fibrillation with rapid ventricular response: Code(s): I48.91 - Unspecified atrial fibrillation Status: Chronic Assessment and Plan: rate control strategy relative hypotension can make this difficult to treat on anticoagulation (4) Hypotension: Qualifiers: Hypotension type: unspecified hypotension type Qualified Code(s): I95.9 - Hypotension, unspecified Code(s): I95.9 - Hypotension, unspecified Status: Chronic Assessment and Plan: on midodrine therapy follow trend of hemodynamics (5) Anemia: Code(s): D64.9 - Anemia, unspecified Status: Chronic Assessment and Plan: due to ESRD Epogen with HD hemoglobin 8.9 (6) Weakness: Code(s): R53.1 - Weakness Status: Acute Assessment and Plan: PT/OT as tolerated Will continue to follow. Subjective Date/time seen: 12/19/22 13:50 Interval history: Arthur is feeling okay. He is working with the physical therapists. No more fevers or chills. Exam Narrative: General: elderly but WD/WN elderly male in NAD Heart: normal S1 and S2; irregular irregular; no rub or gallop Lungs: clear a bilaterally Abdomen: soft, nontender, nondistended, positive bowel sounds Extremities: 1+ edema Skin: No rash Or subcu nodules Objective Data Vital Signs Vital Signs: Vital Signs - 24 hr 12/18/22 14:00 12/18/22 16:42 12/18/22 16:00 Temperature 96.4 F L Pulse Rate 93 98 105 H Respiratory Rate 21 H Blood Pressure 113/85 Pulse Oximetry 100 Oxygen Delivery Oxygen Flow Rate 12/18/22 16:00 12/18/22 18:00 12/18/22 17:16 Temperature Pulse Rate 95 Respiratory Rate Blood Pressure Pulse Oximetry 100 Oxygen Delivery Nasal Cannula Oxygen Flow Rate 2 2 12/18/22 17:16 12/18/22 21:46 12/18/22 21:45 Temperature 97.8 F Pulse Rate 94 103 H Respiratory Rate 17 Blood Pressure 121/87 Pulse Oximetry 100 Oxygen Delivery Nasal Cannula Oxygen Flow Rate 2 12/18/22 20:00 12/18/22 22:15 12/18/22 22:16 Temperature 96.9 F L Pulse Rate 100 98 Respiratory Rate 20 20 Blood Pressure 129/91 H Pulse Oximetry 100 97 Oxygen Delivery Nasal Cannula Oxygen Flow Rate 2 12/18/22 17:26 12/18/22 17:40 12/18/22 18:00 Temperature Pulse Rate 82 83 77 Respiratory Rate Blood Pressure 132/89 136/88 131/84 Pulse Oximetry Oxygen Delivery Oxygen Flow Rate 12/18/22 18:20 12/18/22 18:40 12/18/22 19:00 Temperature Pulse Rate 85 93 93 Respiratory Rate Blood Pressure 125/80 127/79 119/82 Pulse Oximetry Oxygen Delivery Oxygen Flow Rate 12/18/22 19:20 12/18/22 19:40 12/18/22 20:00 Temperature Pulse Rate 92 101 H 93 Respiratory Rate Blood Pressure 141/74 H 148/81 H 122/83 Pulse Oximetry Oxygen Delivery Oxygen Flow Rate 12/18/22 20:20 12/18/22 20:40 12/18/22 20:56 Temperature Pulse Rate 92 87 99 Respiratory Rate Blood Pressure 128/77 137/88 121/58 L Pulse Oximetry Oxygen Delivery Oxygen Flow Rate 12/18/22 21:11 12/18/22 23:45 12/18/22 20:00 Temperature 98.0 F 97.6 F Pulse Rate 100 106 H 93 Respiratory Rate 16 16 Blood Pressure 120/70 91/70 L
--- NOTE | 2022-12-19 18:43 | ADMGEN ---
This patient, Arthur Cantor Jr., was admitted to [facility] @ 1840. Patient/family oriented to hospital policies and general routines including ID bracelet, bed and alarms, visiting hours, pain management, procedures, bathroom and other care routines, personal items, smoking policy, room service/diet, and visiting hours. Information on how to activate the Rapid Response Team has been discussed. Patient/Family are encouraged to report perceived risks to care and to ask questions if they do not understand what they are told or what they should do.
--- NOTE | 2022-12-19 18:45 | PC.NURSE ---
This patient, Arthur Cantor , was transferred to [ [address] [place] [address] ] on 12/19/22 at 1840. Personal belongings sent with patient. Report given to [Keri]. Appropriate documentation sent with patient.
[2022-12-19] MEDS: AZITHROMYCIN 500 MG/NS 250 ML 500 MG/250 ML BAG 250 MG IVPB (18:57)
[2022-12-20] VITALS (15 sets, daily range): BP systolic 85–117; BP diastolic 59–89; PULSE 82–103; RESP 18–20; TEMP 35.7–36.7; O2SAT 93–100
[2022-12-20] MEDS: ALBUTEROL SULFATE NEB 2.5 MG/3 ML INH INHALATION ×4 (01:32→20:31)
[2022-12-20] MEDS: IPRATROPIUM BR 0.02% INH SOLN 0.5 MG/2.5 ML VIAL INHALATION ×4 (01:32→20:31)
[2022-12-20 06:29] LABS: Basophils Absolute Auto 0.1 K/mm3 (0.0-0.1); Basophils Percent Auto 1.1 % (0.2-1.2); Eosinophils Absolute Auto 0.2 K/mm3 (0-0.3); Eosinophils Percent Auto 4.2 % (0-4.4); Hematocrit 31.1 % (42.0-52.0); Hemoglobin 9.7 g/dL (14.0-18.0); Immature Granulocyte Absolute 0.03 K/mm3 (0.00-0.031); Immature Granulocyte Percent A 0.7 % (0-0.5); Lymphocytes Absolute Auto 0.92 K/mm3 (0.9-3.2); Lymphocytes Percent Auto 20.4 % (18.3-44.2); Mean Corpuscular HGB Conc 31.2 g/dl (32-36); Mean Corpuscular Hemoglobin 31.9 pg (26-34); Mean Corpuscular Volume 102.3 fl (80-100); Mean Platelet Volume 9.4 fl (7.4-10.4); Monocytes Absolute Auto 0.8 K/mm3 (0.1-0.6); Monocytes Percent Auto 18.4 % (2.6-8.5); Neutrophils Absolute Auto 2.5 K/mm3 (1.3-6.7); Neutrophils Percent Auto 55.2 % (45.5-73.1); Platelet Count Result 163 k/mm3 (150-375); Red Blood Count 3.04 M/mm3 (4.6-6.20); White Blood Count 4.5 K/mm3 (4.5-10.0)
[2022-12-20 06:41] LABS: Potassium 4.1 mmol/L (3.4-5.0)
[2022-12-20 06:43] LABS: Alanine Aminotransferase 14 U/L (6-50); Albumin Level 3.1 g/dL (3.5-5.1); Alkaline Phosphatase 58 U/L (38-126); Anion Gap 4 mmol/L (8-16); Aspartate Amino Transferase 18 U/L (17-59); Bilirubin,Total 0.4 mg/dL (0.2-1.3); Blood Urea Nitrogen 27 mg/dL (9-20); Carbon Dioxide 28 mmol/L (22-30); Chloride 100 mmol/L (98-107); Estimated CRCL calculation 13 ml/min; Estimated Glomerular Filt Rate 10; Glucose 81 mg/dL (65-110); Phosphorus 3.3 mg/dL (2.5-4.5); Sodium 132 mmol/L (137-145)
[2022-12-20] MEDS: CALCIUM ACETATE 667 MG TABLET 1334 MG PO ×3 (08:44→17:20)
[2022-12-20] MEDS: OMEGA 3 POLYUNSAT FATTY ACIDS 1 GM CAP PO (08:44)
[2022-12-20] MEDS: OPTI-GEN TAB 1 TABLET PO (08:44)
[2022-12-20] MEDS: FAMOTIDINE 20 MG TABLET PO ×2 (08:44→17:21)
[2022-12-20] MEDS: FUROSEMIDE 40 MG TABLET PO (08:45)
[2022-12-20] MEDS: METOPROLOL TARTRATE 25 MG TABLET PO ×2 (08:45→21:41)
[2022-12-20] MEDS: MIDODRINE HCL 2.5 MG TABLET 5 MG PO ×3 (08:45→17:21)
[2022-12-20] MEDS: FLUTICASONE PROPIONATE 0.05% NA SPR 16 GM BTL (*BKC) 1 SPRAY NASAL ×2 (08:45→21:41)
[2022-12-20] MEDS: APIXABAN 2.5 MG TABLET PO ×2 (08:46→21:41)
[2022-12-20] MEDS: NYSTATIN 100,000 UNITS/ML SUSP 5 ML ORAL.SUSP PO ×4 (08:47→21:41)
[2022-12-20] MEDS: polyethylene glycoL 3350 17 GM POWD.PACK PO (08:47)
[2022-12-20] MEDS: PANTOPRAZOLE 40 MG TABLET PO (08:47)
[2022-12-20] MEDS: LIDOCAINE 5% PATCH 1 PATCH TRANSDERM (08:52)
--- NOTE | 2022-12-20 09:45 | PM.PNNEP ---
Progress Note: A&P Assessment and Plan (1) End stage renal disease: Code(s): N18.6 - End stage renal disease Status: Chronic Assessment and Plan: HD tomorrow continue T/T/S schedule while hospitalized follow electrolytes, volume status, and clearaance (2) Pneumonia: Code(s): J18.9 - Pneumonia, unspecified organism Status: Acute Assessment and Plan: suggested by CXR in association of fever CT of chest reviewed as well follow culture data - 1 out of 2 culture positive for Staph aureus on antibiotics will dose IV antibiotics with dialysis on disharge (3) Atrial fibrillation with rapid ventricular response: Code(s): I48.91 - Unspecified atrial fibrillation Status: Chronic Assessment and Plan: rate control strategy relative hypotension can make this difficult to treat on anticoagulation (4) Hypotension: Qualifiers: Hypotension type: unspecified hypotension type Qualified Code(s): I95.9 - Hypotension, unspecified Code(s): I95.9 - Hypotension, unspecified Status: Chronic Assessment and Plan: on midodrine therapy follow trend of hemodynamics (5) Anemia: Code(s): D64.9 - Anemia, unspecified Status: Chronic Assessment and Plan: due to ESRD Epogen with HD follow trend of H/H (6) Weakness: Code(s): R53.1 - Weakness Status: Acute Assessment and Plan: PT/OT as tolerated Not opposed to discharge from renal perspective if otherwise medically stable; I have arranged for outpatient IV antibiotics with dialysis already. Will continue to follow. Subjective Date/time seen: 12/20/22 09:45 Interval history: Follow-up for end stage renal disease on hemodialysis. Appears to be feeling reasonably well at the time of my visit; no new issues or concerns voiced; no events overnight or earlier this morning; no further fevers since admission; tolerating antibiotic therapy. Exam Narrative: General: elderly but WD/WN elderly male in NAD Heart: normal S1 and S2; irregularly irregular; no rub or gallop Lungs: clear a bilaterally Abdomen: soft, nontender, nondistended, positive bowel sounds Extremities: trace - 1+ edema present Skin: warm and dry Objective Data Vital Signs Vital Signs: Vital Signs Temp Pulse Resp BP Pulse Ox O2 Del Method 12/20/22 09:32 97 18 12/20/22 09:23 96 Room Air 12/20/22 09:20 99 18 08/07/23 08:45 86 12/20/22 05:57 97.6 F 103 H 20 85/59 L 93 12/20/22 01:45 95 18 12/20/22 01:32 96 18 12/19/22 22:00 97.0 F L 92 18 110/80 96 12/19/22 20:16 92 12/19/22 19:45 99 18 12/19/22 19:28 98 18 12/19/22 19:28 97 Room Air 12/19/22 18:45 Room Air 12/19/22 18:50 96.8 F L 98 22 H 90/70 L 99 12/19/22 18:00 98 12/19/22 16:00 111 H 12/19/22 16:00 96.5 F L 101 H 12 113/96 H 100 12/19/22 14:00 101 H 12/19/22 12:00 110 H 12/19/22 13:25 103 H 18 12/19/22 13:00 106 H 18 12/19/22 12:00 97.9 F 115 H 14 116/84 96 Intake/Output Intake/Output: Intake & Output 12/17/22 12/18/22 12/19/22 12/20/22 23:59 23:59 23:59 23:59 Intake Total 2920 1210 1680 560 Output Total 2850 3000 0 Balance 70 -1790 1680 560 Meds/Results Medications: Active Medications Generic Name Dose Route Start Last Admin Trade Name Freq PRN Reason Stop Dose Admin Acetaminophen 650 mg 12/14/22 16:51 12/18/22 13:51 Acetaminophen 325 Mg Tablet PO 650 mg Q4H PRN Administration Mild Pain (1-3) or Fever Hydrocodone Bitart/Acetaminophen 1 tab 12/14/22 16:51 Hydrocodone/Acetaminophen (*Crx) 5-325 Mg Tablet PO Q4H PRN Pain Rated 4-6 Albuterol 2.5 mg 12/15/22 02:00 12/20/22 09:20 Albuterol Sulfate Neb 2.5 Mg/3 Ml Inh INHALATION 2.5 mg Q6HRT ROBERT Administration Apixaban 2.5 mg 12/15
[2022-12-20] MEDS: MIDODRINE HCL 10 MG TABLET PO (09:51)
--- NOTE | 2022-12-20 11:05 | PM.IMPN ---
Progress Note: A&P Assessment and Plan (1) End stage renal disease: Code(s): N18.6 - End stage renal disease Status: Chronic Assessment and Plan: HD tomorrow continue T/T/S schedule while hospitalized follow electrolytes, volume status, and clearance (2) Pneumonia: Code(s): J18.9 - Pneumonia, unspecified organism Status: Acute Assessment and Plan: suggested by CXR in association of fever CT of chest reviewed as well follow culture data - 1 out of 2 culture positive for Staph aureus on antibiotics will dose IV antibiotics with dialysis on discharge (3) Atrial fibrillation with rapid ventricular response: Code(s): I48.91 - Unspecified atrial fibrillation Status: Chronic Assessment and Plan: rate control strategy relative hypotension can make this difficult to treat on anticoagulation (4) Hypotension: Qualifiers: Hypotension type: unspecified hypotension type Qualified Code(s): I95.9 - Hypotension, unspecified Code(s): I95.9 - Hypotension, unspecified Status: Chronic Assessment and Plan: on midodrine therapy follow trend of hemodynamics (5) Anemia: Code(s): D64.9 - Anemia, unspecified Status: Chronic Assessment and Plan: due to ESRD Epogen with HD follow trend of H/H (6) Weakness: Code(s): R53.1 - Weakness Status: Acute Assessment and Plan: PT/OT as tolerated Patient returned to skilled care for rehab after discharge Plan Patient stable for discharge this afternoon but refusing to go until after dialysis tomorrow. Plan to discharge tomorrow. Time Spent With Patient Time with patient: 25 - 35 minutes Subjective Date/time seen: 12/20/22 11:05 Interval history: 12/15: This is an 82-year-old male patient with a history of end-stage renal disease on dialysis Tuesday who was admitted to the hospital for vomiting, chills and weakness while on dialysis yesterday. Patient brought to the emergency department found to have elevated white blood cell count and patchy lung opacities that may be atelectasis versus pneumonia. Patient also found to be in AFib RVR started on Cardizem Rocephin and azithromycin. Overnight patient reports that he be and feel better. He was given IV push Cardizem in ER, now with a heart rate in the 80s, still in atrial fibrillation on telemetry. Patient has a history of hypotension is on midodrine and on metoprolol heart rate control. Patient requesting physical therapy occupational therapy to work with him so he does not lose progress. He is currently at [facility] for acute rehab and lives at [facility] living and wants to get back to [facility] is soon as possible. 12/16: Patient seen this morning while getting hooked up to dialysis machine. He states he did not rest very well overnight. He denies any difficulty breathing or chest pain. He denies dizziness nausea or vomiting. Patient denies any other acute events. Of note, was notified during dialysis session the patient's blood pressure had dropped. Nephrology ordered additional midodrine and albumin which was administered by nursing staff. 12/17: Blood cultures result positive 1 of 2, aerobic only with Gram positive cocci in clusters. Ordered vancomycin out of caution for possible MRSA. Will watch for speciation and cultures. Patient drowsy after hemofiltration session. No fever chills. No significant complaints. Occasional cough no difficulty breathing. 12/18: No fever chills today. Positive blood culture is Staphylococcus aureus, awaiting sensitivities. Patient continues on vancomycin as well as ceftriaxone and azithromycin. He is feeling much better today. Patient is due for dialysis this afternoon. He worked with therapy today was able to stand up with assist and ambulate for several steps before needing to get back into bed. This encouraged patien
[2022-12-20] MEDS: ACETAMINOPHEN 325 MG TABLET 650 MG PO (14:00)
[2022-12-21] VITALS (21 sets, daily range): BP systolic 100–134; BP diastolic 54–99; PULSE 64–100; RESP 18–22; TEMP 36.3–37; O2SAT 93–98
[2022-12-21] MEDS: ALBUTEROL SULFATE NEB 2.5 MG/3 ML INH INHALATION ×3 (01:51→13:40)
[2022-12-21] MEDS: IPRATROPIUM BR 0.02% INH SOLN 0.5 MG/2.5 ML VIAL INHALATION ×3 (01:51→13:40)
[2022-12-21] MEDS: SODIUM CHLORIDE 0.9% IV 1,000 ML 999 ML IV CONT (07:00)
[2022-12-21 07:27] LABS: Basophils Absolute Auto 0.1 K/mm3 (0.0-0.1); Eosinophils Absolute Auto 0.2 K/mm3 (0-0.3); Eosinophils Percent Auto 4.2 % (0-4.4); Hematocrit 32.9 % (42.0-52.0); Hemoglobin 10.1 g/dL (14.0-18.0); Immature Granulocyte Absolute 0.04 K/mm3 (0.00-0.031); Immature Granulocyte Percent A 0.8 % (0-0.5); Lymphocytes Absolute Auto 0.87 K/mm3 (0.9-3.2); Lymphocytes Percent Auto 16.8 % (18.3-44.2); Mean Corpuscular HGB Conc 30.7 g/dl (32-36); Mean Corpuscular Hemoglobin 31.2 pg (26-34); Mean Corpuscular Volume 101.5 fl (80-100); Monocytes Absolute Auto 0.9 K/mm3 (0.1-0.6); Monocytes Percent Auto 17.7 % (2.6-8.5); Neutrophils Absolute Auto 3.1 K/mm3 (1.3-6.7); Neutrophils Percent Auto 59.5 % (45.5-73.1); Platelet Count Result 195 k/mm3 (150-375); Red Blood Count 3.24 M/mm3 (4.6-6.20); Red Cell Distribution Width 14.9 % (11.5-14.5); White Blood Count 5.2 K/mm3 (4.5-10.0)
--- NOTE | 2022-12-21 07:29 | PM.DS ---
DS: Admitting Diagnosis Discharge Date 12/21/2022 Admitting Diagnosis Pneumonia ESRD on dialysis CHF Hypertension Hyperlipidemia Atrial fibrillation JUVE DS: Discharge Diagnosis Discharge Diagnosis (1) Bacteremia due to methicillin susceptible Staphylococcus aureus (MSSA): Code(s): R78.81 - Bacteremia; B95.61 - Methicillin susceptible Staphylococcus aureus infection as the cause of diseases classified elsewhere Status: Acute (2) Pneumonia: Code(s): J18.9 - Pneumonia, unspecified organism Status: Acute (3) End stage renal disease: Code(s): N18.6 - End stage renal disease Status: Chronic (4) Atrial fibrillation: Code(s): I48.91 - Unspecified atrial fibrillation Status: Acute (5) CHF (congestive heart failure): Qualifiers: Heart failure type: systolic Heart failure chronicity: chronic Qualified Code(s): I50.22 - Chronic systolic (congestive) heart failure Code(s): I50.9 - Heart failure, unspecified Status: Acute (6) HTN (hypertension): Code(s): I10 - Essential (primary) hypertension Status: Chronic (7) HLD (hyperlipidemia): Code(s): E78.5 - Hyperlipidemia, unspecified Status: Acute (8) JUVE (obstructive sleep apnea): Code(s): G47.33 - Obstructive sleep apnea (adult) (pediatric) Status: Acute DS: Summary Hospital Course Reason for hospitalization: Patient was admitted to the hospital after he became sick at dialysis. He was found to be in rapid atrial fibrillation was given Cardizem. He was also found to have findings of pneumonia. Hospital Course: Patient was admitted and treated for pneumonia in rapid AFib. He resume dialysis on Tuesday schedule with Nephrology consult. Blood cultures repeated resulted with MSSA suspected to be pneumonia as the source less likely dialysis line. Arrangements made for patient to received 2 weeks of IV Ancef initially 1 g daily than 2 g with dialysis on Tuesday and and 3 g with dialysis on Tuesday for 2 weeks. Patient had multiple episodes of low blood pressure during hospitalization. He was on a fluid restriction. Midodrine was used for blood pressure management. He requires metoprolol for rate control of atrial fibrillation. On discharge patient to return to [facility] to continue rehabilitation and strengthening. He patient in good spirits. Prescription for midodrine increased upon discharge. Status at Discharge Cognitive/behavioral status at discharge: Awake, alert, oriented and pleasant Functional status at discharge: uses cane/walker Overall status at discharge: patient is progressing back to baseline Time Spent with Patient Time attestation: Total time spent providing and/or coordinating discharge services: Time spent: Greater than 30 minutes Exam Narrative: GENERAL APPEARANCE: chronically ill-appearing obese male in no acute distress, patient appears very well today HEENT: normocephalic, atraumatic, normal conjunctiva and sclera, nares patient NECK: no lymphadenopathy, thyromegaly, or JVD MOUTH: normal lips, teeth, and gums CARDIOVASCULAR: IRRR, normal S1 and S2, no rub RESPIRATORY: coarse breath sounds, no wheeze or respiratory distress ABDOMEN: soft, nontender, nondistended, positive bowel sounds present EXTREMITIES: no evidence of cyanosis, clubbing, trace edema NEUROLOGICAL: alert and oriented x 3; CN II - XII intact bilaterally; no focal deficits noted DS: Data Data Completed and Pending Completed studies during hospitalization: Chest x-ray and chest CT Pending studies at discharge: Repeat blood cultures Labs on day of discharge: Labs from last 24 hours 12/21/22 06:33 WBC 5.2 RBC 3.24 L Hgb 10.1 L Hct 32.9 L MCV 101.5 H MCH 31.2 MCHC 30.7 L RDW 14.9 H Plt Count 195 MPV 10.0 Immature Gran % (Auto) 0.8 H Neut % (Auto) 59.5 Lymph % (Auto) 16.8 L [place] % (Auto) 17.7 H E
[2022-12-21 07:34] LABS: Alanine Aminotransferase 13 U/L (6-50); Albumin Level 3.3 g/dL (3.5-5.1); Alkaline Phosphatase 64 U/L (38-126); Anion Gap 8 mmol/L (8-16); Aspartate Amino Transferase 20 U/L (17-59); Bilirubin,Total 0.4 mg/dL (0.2-1.3); Blood Urea Nitrogen 31 mg/dL (9-20); Calcium 9.5 mg/dL (8.4-10.2); Carbon Dioxide 28 mmol/L (22-30); Chloride 98 mmol/L (98-107); Estimated CRCL calculation 12 ml/min; Estimated Glomerular Filt Rate 9; Glucose 74 mg/dL (65-110); Potassium 4.5 mmol/L (3.4-5.0); Sodium 134 mmol/L (137-145)
[2022-12-21] MEDS: OMEGA 3 POLYUNSAT FATTY ACIDS 1 GM CAP PO (08:08)
[2022-12-21] MEDS: PANTOPRAZOLE 40 MG TABLET PO (08:09)
[2022-12-21] MEDS: METOPROLOL TARTRATE 25 MG TABLET PO (08:09)
[2022-12-21] MEDS: MIDODRINE HCL 2.5 MG TABLET 5 MG PO ×2 (08:09→13:06)
[2022-12-21] MEDS: APIXABAN 2.5 MG TABLET PO (08:09)
[2022-12-21] MEDS: CALCIUM ACETATE 667 MG TABLET 1334 MG PO ×2 (08:09→13:06)
[2022-12-21] MEDS: OPTI-GEN TAB 1 TABLET PO (08:10)
[2022-12-21] MEDS: FLUTICASONE PROPIONATE 0.05% NA SPR 16 GM BTL (*BKC) 1 SPRAY NASAL (08:10)
[2022-12-21] MEDS: FAMOTIDINE 20 MG TABLET PO (08:10)
--- NOTE | 2022-12-21 08:22 | PC.NURSE ---
patient to dialysis per bed. Silviano in dialysis requested furosemide be held until after dialysis. patient would like to get nystatin, miralax, and lidoderm patch after dialysis as well
[2022-12-21] MEDS: ALBUMIN HUMAN 25% 12.5 GM/50ML 50 ML IVPB ×2 (08:42→09:41)
--- NOTE | 2022-12-21 09:16 | PCPTNOTE ---
The patient treatment was not able to be completed at this time due to patient in dialysis. Will plan to continue treatment per plan of care.
--- NOTE | 2022-12-21 09:20 | PCOTNOTE ---
Patient out of the room at this time. Patient is in dialysis.
--- NOTE | 2022-12-21 09:47 | PM.PNNEP ---
Progress Note: A&P Assessment and Plan (1) End stage renal disease: Code(s): N18.6 - End stage renal disease Status: Chronic Assessment and Plan: HD today continue T/T/S schedule while hospitalized follow electrolytes, volume status, and clearaance (2) Pneumonia: Code(s): J18.9 - Pneumonia, unspecified organism Status: Acute Assessment and Plan: suggested by CXR in association of fever CT of chest reviewed as well follow culture data - 1 out of 2 culture positive for Staph aureus on antibiotics will dose IV antibiotics with dialysis on disharge (3) Atrial fibrillation with rapid ventricular response: Code(s): I48.91 - Unspecified atrial fibrillation Status: Chronic Assessment and Plan: rate control strategy relative hypotension can make this difficult to treat on anticoagulation (4) Hypotension: Qualifiers: Hypotension type: unspecified hypotension type Qualified Code(s): I95.9 - Hypotension, unspecified Code(s): I95.9 - Hypotension, unspecified Status: Chronic Assessment and Plan: on midodrine therapy follow trend of hemodynamics (5) Anemia: Code(s): D64.9 - Anemia, unspecified Status: Chronic Assessment and Plan: due to ESRD Epogen with HD follow trend of H/H (6) Weakness: Code(s): R53.1 - Weakness Status: Acute Assessment and Plan: PT/OT as tolerated Not opposed to discharge today from renal perspective if otherwise medically stable; I have arranged for outpatient IV antibiotics with dialysis already. Will continue to follow. Subjective Date/time seen: 12/21/22 09:47 Interval history: Follow-up for end stage renal disease on hemodialysis. Tolerating hemodialysis treatment at the time of my visit (seen on HD at 9:35AM); no apparent distress voiced at this time other than a mild headache; no issues/events overnight or earlier this morning. Exam Narrative: General: elderly but WD/WN elderly male in NAD Heart: normal S1 and S2; irregularly irregular; no rub or gallop Lungs: clear a bilaterally Abdomen: soft, nontender, nondistended, positive bowel sounds Extremities: trace - 1+ edema present Skin: warm and intact Objective Data Vital Signs Vital Signs: Vital Signs Temp Pulse Resp BP Pulse Ox O2 Del Method FiO2 12/21/22 09:00 88 122/74 12/21/22 08:14 93 18 12/21/22 08:03 90 18 12/21/22 08:03 96 Room Air 21 12/21/22 08:09 91 12/21/22 09:40 98 127/89 12/21/22 09:20 64 122/54 L 12/21/22 08:37 85 128/96 H 12/21/22 08:26 97.4 F L 84 18 110/68 12/21/22 06:00 97.7 F 91 19 100/80 98 12/21/22 01:53 93 18 12/20/22 22:00 98.1 F 82 18 117/89 100 12/20/22 21:41 88 12/20/22 20:40 92 18 12/20/22 20:34 96 Room Air 12/20/22 20:33 92 18 12/20/22 15:00 90 18 12/20/22 14:48 87 18 12/20/22 13:05 96.2 F L 84 18 110/83 100 Intake/Output Intake/Output: Intake & Output 12/18/22 12/19/22 12/20/22 12/21/22 23:59 23:59 23:59 23:59 Intake Total 1210 1680 920 220 Output Total 3000 0 0 Balance -1790 1680 920 220 Meds/Results Medications: Active Medications Generic Name Dose Route Start Last Admin Trade Name Ashishq PRN Reason Stop Dose Admin Acetaminophen 650 mg 12/14/22 16:51 12/21/22 10:37 Acetaminophen 325 Mg Tablet PO 650 mg Q4H PRN Administration Mild Pain (1-3) or Fever Hydrocodone Bitart/Acetaminophen 1 tab 12/14/22 16:51 Hydrocodone/Acetaminophen (*Crx) 5-325 Mg Tablet PO Q4H PRN Pain Rated 4-6 Albuterol 2.5 mg 12/15/22 02:00 12/21/22 08:03 Albuterol Sulfate Neb 2.5 Mg/3 Ml Inh INHALATION 2.5 mg Q6HRT ROBERT Administration Apixaban 2.5 mg 12/15/22 09:00 12/21/22 08:09 Apixaban 2.5 Mg Tablet PO 2.5 mg Q12HR ROBERT Admi
[2022-12-21] MEDS: ACETAMINOPHEN 325 MG TABLET 650 MG PO ×2 (10:37→15:16)
[2022-12-21] MEDS: EPOETIN ALFA 10,000 UNITS/ML VIAL 10000 UNITS IV PUSH (11:52)
--- NOTE | 2022-12-21 13:04 | PC.NURSE ---
patient returning from dialysis
[2022-12-21] MEDS: polyethylene glycoL 3350 17 GM POWD.PACK PO (13:05)
[2022-12-21] MEDS: NYSTATIN 100,000 UNITS/ML SUSP 5 ML ORAL.SUSP PO (13:06)
[2022-12-21] MEDS: LIDOCAINE 5% PATCH 1 PATCH TRANSDERM (13:06)
[2022-12-21] MEDS: FUROSEMIDE 40 MG TABLET PO (13:06)
[2022-12-21] MEDS: ceFAZolin SODIUM 1 GM VIAL 2 GM IV PUSH (13:07)
== END 2022-12-21 16:10 | DRG 193 ==
LOC: ANHED 14:58 → ANHIMU 17:55 → ANH3MEDSUR 12-19 18:50
PROVIDERS: Internal Medicine Nephrology; Nurse Practitioner; Admitting Provider Student in an Organized Health Care Education/Training Program; Emergency Provider Emergency Medicine; PCP Family Medicine; Visit Provider Nurse Practitioner
DX: J18.9 Pneumonia, unspecified organism (principal); N18.6 End stage renal disease; I13.2 Hypertensive heart and chronic kidney disease with heart failure and with stage 5 chronic kidney disease, or end stage renal disease; I50.22 Chronic systolic (congestive) heart failure; R78.81 Bacteremia; B95.61 Methicillin susceptible Staphylococcus aureus infection as the cause of diseases classified elsewhere; I48.91 Unspecified atrial fibrillation; E78.5 Hyperlipidemia, unspecified; G47.33 Obstructive sleep apnea (adult) (pediatric); I95.9 Hypotension, unspecified; E66.9 Obesity, unspecified; M19.90 Unspecified osteoarthritis, unspecified site; M06.9 Rheumatoid arthritis, unspecified; I35.0 Nonrheumatic aortic (valve) stenosis; D63.1 Anemia in chronic kidney disease; Z96.659 Presence of unspecified artificial knee joint; Z68.35 Body mass index [BMI] 35.0-35.9, adult; Z86.718 Personal history of other venous thrombosis and embolism; Z87.891 Personal history of nicotine dependence; Z99.2 Dependence on renal dialysis
CPT/HCPCS: 36415; 71046; 71250; 80053; 80202; 83605; 83690; 83735; 84100; 84443; 85025; 85055; 86706; 87040; 87070; 87081; 87147; 87181; 87186; 87205; 87340; 93005; 94640; 96365; 96375; 97110; 97116; 97161; 97165; 97530; 97535; 99285; A9270; G0257; G0378; J0456; J0690; J0696; J1644; J2405; J3370; J7030; P9047; Q4081

== ENCOUNTER 2023-02-09 01:23 | Day surgery (SDC) | payer MEDICARE, SELFPAY ==
[2023-02-09] VITALS (8 sets, daily range): BP systolic 93–121; BP diastolic 73–87; PULSE 67–88; RESP 15–20; TEMP 36.1–36.8; O2SAT 93–100; BMI 36.4
[2023-02-09 07:35] LABS: Basophils Absolute Auto 0.1 K/mm3 (0.0-0.1); Basophils Percent Auto 1.2 % (0.2-1.2); Eosinophils Absolute Auto 0.2 K/mm3 (0-0.3); Eosinophils Percent Auto 3.6 % (0-4.4); Hematocrit 36.6 % (42.0-52.0); Hemoglobin 11.5 g/dL (14.0-18.0); Immature Granulocyte Absolute 0.02 K/mm3 (0.00-0.031); Immature Granulocyte Percent A 0.3 % (0-0.5); Lymphocytes Percent Auto 15.6 % (18.3-44.2); Mean Corpuscular HGB Conc 31.4 g/dl (32-36); Mean Corpuscular Hemoglobin 31.9 pg (26-34); Mean Corpuscular Volume 101.7 fl (80-100); Mean Platelet Volume 9.5 fl (7.4-10.4); Monocytes Absolute Auto 0.8 K/mm3 (0.1-0.6); Monocytes Percent Auto 14.5 % (2.6-8.5); Neutrophils Absolute Auto 3.7 K/mm3 (1.3-6.7); Neutrophils Percent Auto 64.8 % (45.5-73.1); Platelet Count Result 167 k/mm3 (150-375); Red Cell Distribution Width 15.4 % (11.5-14.5); White Blood Count 5.8 K/mm3 (4.5-10.0)
[2023-02-09 07:45] LABS: Anion Gap 11 mmol/L (8-16); Blood Urea Nitrogen 38 mg/dL (9-20); Calcium 9.7 mg/dL (8.4-10.2); Carbon Dioxide 28 mmol/L (22-30); Chloride 99 mmol/L (98-107); Estimated CRCL calculation 10 ml/min; Estimated Glomerular Filt Rate 7; Glucose 83 mg/dL (65-110); Sodium 138 mmol/L (137-145)
--- NOTE | 2023-02-09 09:17 | WPDHPUPDATE1 ---
History and Physical Update Update Date/Time: 02/09/23 09:17 History and Physical has been reviewed, including an updated exam of the patient. There are NO changes in the patient's condition. Risks, benefits, and alternatives have been discussed and questions answered. Patient agrees to proceed with procedure.
--- NOTE | 2023-02-09 09:17 | WPDMODSED ---
Moderate Sedation Note-Pt Data Patient Data Diagnosis: Severe aortic stenosis Present Complaint: Severe aortic stenosis Procedure to be performed/Plan: Coronary angiography, right heart cath Allergies Allergy/AdvReac Type Severity Reaction Status Date / Time camphor [From Biofreeze] Allergy Intermediate Hives Verified 02/09/23 07:16 menthol [From Biofreeze] Allergy Intermediate Hives Verified 02/09/23 07:16 Home Medications Medication Instructions Recorded Confirmed Type apixaban 2.5 mg tablet (Eliquis) 2.5 mg PO Q12HR #60 tabs 06/21/22 02/09/23 Rx calcium acetate(phosphat bind) 667 1,334 mg PO TID #180 tabs 10/08/22 01/13/23 Rx mg tablet fluticasone propionate 50 1 spray intranasal Q12HR #1 inh 10/08/22 01/13/23 Rx mcg/actuation nasal spray,suspension nystatin 100,000 unit/mL oral 5 ml PO QID #240 mL 10/08/22 01/13/23 Rx suspension tramadol 50 mg tablet 50 mg PO Q6-8H PRN Pain 10/31/22 01/13/23 History lidocaine 5 % topical patch 1 patch transdermal DAILY #30 ea 11/04/22 01/13/23 Rx (Lidoderm) eqejzicq-he-abzwg 300 mcg-K 60 1 tablet PO DAILY #90 tabs 11/09/22 01/13/23 Rx mcg-lycop 600 mcg-lutein 300 mcg tablet (Centrum Silver Ultra Men's) omega-3 acid ethyl esters 1 gram 1 cap PO DAILY #90 caps 11/09/22 01/13/23 Rx capsule loperamide 2 mg capsule (Imodium 2 mg PO Q6H PRN loose stool #90 11/10/22 01/13/23 Rx A-D) caps docusate sodium 100 mg capsule 100 mg PO Q12H PRN Constipation 12/02/22 01/13/23 Rx #60 caps hydrocodone 5 mg-acetaminophen 325 1 tablet PO Q4H PRN Pain Rated 4-6 12/02/22 01/13/23 Rx mg tablet #12 tabs polyethylene glycol 3350 17 gram 17 g PO QAM #14 ea 12/02/22 01/13/23 Rx oral powder packet (Miralax) furosemide 40 mg tablet 40 mg PO DAILY 12/14/22 01/13/23 History midodrine 2.5 mg tablet 7.5 mg PO TID 30 days #270 tabs 12/21/22 01/13/23 Rx metoprolol tartrate 25 mg tablet 25 mg PO Q12HR #180 tabs 01/21/23 Rx pantoprazole 40 mg tablet,delayed 40 mg PO QAM #90 tabs 01/21/23 Rx release Current Medications: Active Medications Sodium Chloride (Normal Saline Iv) 500 mls @ 100 mls/hr IV CONT .Q5H ROBERT Sedation/Anesthesia: No previous sedation/anesthesia problems (including family history). [facility] Past Medical History Medical History Atrial fibrillation Chronic anemia Deep venous thrombosis Degenerative joint disease End-stage renal disease on hemodialysis Gastric ulcer Heart failure with preserved ejection fraction Echocardiogram in 10/2022 showed normal LV chamber size with hyperdynamic function EF estimated greater than 70% with mild concentric increased LVH and abnormal diastolic function with biatrial enlargement and severe aortic valve stenosis. Hyperlipidemia Hypertension Insomnia Osteoarthritis Pneumonia Rheumatoid arthritis Severe aortic valve stenosis On echo in 10/2022 with a valve area of 0.6 cm2. Weakness Surgical History Surgical History History of arthroscopy of right knee History of arthroscopy of right shoulder History of circumcision (2005) For phimosis, pathology showed lichen sclerosis. History of colonoscopy with polypectomy (02/2006) History of esophagogastroduodenoscopy History of repair of right rotator cuff (06/2008) History of tonsillectomy and adenoidectomy History of total knee replacement History of total knee replacement Status post right rotator cuff repair Family History Family History Father Heart failure Father Family history of liver disease Diabetes mellitus Family history of kidney disease Mother Family history of diabetes mellitus in first degree relative Diabetes mellitus Family history of renal failure Other Family history of gout Hypertension Social History Social History Socia
--- NOTE | 2023-02-09 10:09 | WPDCARDPROC ---
Cardiac Cath Procedure Note Date of procedure:: 02/09/23 Performing physician:: CATHETERIZATION LABORATORY REPORT Procedure Date: 02/09/2023 Trade Marker: Elvira Tuttle M.D., [facility]? Referring Physician: Dr. Kaufman ? Anesthesia: Versed and Fentanyl were ordered and given in my presence at 09:16, procedure ended at 10:04. Supervision of nurse monitored moderate sedation with Versed and Fentanyl was provided for 48 minutes. Total of Versed 1mg and Fentanyl 25mcg were administered by the Bakery Deliverer RN Helga Hudson. Pre-op Diagnosis: Severe aortic stenosis Post-op Diagnosis: 1. Non-obstructive coronary artery disease 2. Elevated right heart filling pressures 3. 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 Preserved cardiac output of 5.3 by Reyna 5. Mildly reduced cardiac index of 2.2 by Reyna Procedure(s): 1. Moderate sedation 2. Ultrasound-guided access of the right common femoral artery and the right femoral vein 3. Right heart cath 4. Coronary angiography 5. Angioseal closure of the right common femoral artery Access Site: Right common femoral artery Right femoral vein Brief History and Clinical Indications: Patient is an 82 year old male who is referred for [facility] for evaluation of severe aortic stenosis. All risks, benefits and alternatives to left and right heart catheterization with or without percutaneous coronary intervention was discussed at length with the patient. Risk of complications including but not limited to bleeding, infection, arrhythmia, stroke, worsening kidney function, blood loss, groin hematoma, limb loss, emergency coronary artery bypass grafting, and even were discussed with the patient and all questions were answered. The patient understood and wished to proceed. Time out called, patient name, date of , medical record number, allergies, procedure performed, identify Trade Marker, patient and staff member concurred with accurate data, procedure carried on. Findings: LEFT HEART CATHETERIZATION FINDINGS: 1. Left main: Large caliber vessel. The left main coronary artery is widely patent without any significant obstructive disease. 2. Left anterior descending: Large caliber vessel. The LAD and the diagonal branches have mild diffuse disease without any significant obstructive angiographic disease. 3. Left circumflex: Large caliber vessel. The left circumflex artery and the main marginal branches have mild diffuse disease without any significant obstructive angiographic disease. 4. Ramus: Large caliber vessel. The Ramus has mild diffuse disease without any significant obstructive angiographic disease. 5. Right coronary artery: Large caliber vessel. The RCA is the dominant vessel. The RCA has mild diffuse disease without any significant obstructive angiographic disease. 6. Left ventricle: The aortic valve was not crossed due to known severe aortic stenosis. RIGHT HEART CATHETERIZATION FINDINGS: Pressures (mmHg): RA: 14mmHg RV: 40/15mmHg PA: 44/23mmHg with mean of 33mmHg PCWP: 23mmHg Saturations (%): PA: 57.4% Arterial: 94.2% CO/CI: Reyna CO: 5.3 Reyna CI: 2.2 PVR (SAINI): 1.9 Description of Procedure: Informed consent signed and placed in the chart. Patient transferred to semiconductor lab technician room. Prepped and draped in usual sterile fashion. 2% lidocaine in right groin area. Micropuncture needle used to access right common femoral artery under ultrasound guidance. J wire advanced, micropuncture cannula placed. Right iliofemoral angiogram performed, access confirmed and micropuncture cannula exchanged for 5-FR sheath. Right femoral vein was accessed using micropuncture technique under ultrasound guidance. 7-FR sheath placed. 7F Opheim-Tiana catheter was advanced into the right side of the heart chambers and pressures were measured. Unable to engage 5F FL 4 diagnostic catheter engaged Left Main Coronary Artery. The left main was guevara
== END 2023-02-09 13:35 | disposition home or self-care (01) ==
PROVIDERS: PCP Family Medicine; Visit Provider Internal Medicine
PROC: (CPT 93566; principal; 2023-02-09 08:30)
DX: I35.0 Nonrheumatic aortic (valve) stenosis (principal); I25.10 Atherosclerotic heart disease of native coronary artery without angina pectoris; I48.91 Unspecified atrial fibrillation; E78.5 Hyperlipidemia, unspecified; D64.9 Anemia, unspecified; I11.0 Hypertensive heart disease with heart failure; I50.9 Heart failure, unspecified; M06.9 Rheumatoid arthritis, unspecified; Z79.01 Long term (current) use of anticoagulants; Z86.718 Personal history of other venous thrombosis and embolism; Z79.891 Long term (current) use of opiate analgesic; Z87.891 Personal history of nicotine dependence
CPT/HCPCS: 36415; 80048; 85025; 93456; C1760; C1887; C1894; G0269; J1644; J2250; J3010; J7040

== ENCOUNTER 2024-05-03 14:30 | Outpatient (CLI) | payer MEDICARE, SELFPAY ==
--- NOTE | 2024-05-03 | ECHO_ITS ---
Patient Info Name: Arthur Cantor Age: 83 years : 1940 Gender: Male Ht: 72 in Wt: 276 lbs BSA: 2.57 m2 HR: 68 bpm BP: 88 / 61 mmHg Heart Rhythm: Atrial Fibrillation Technical Quality: Fair Exam Date: 05/03/2024 3:20 PM Exam Location: Echo Lab Patient Status: Outpatient Admit Date: 05/03/2024 Staff Ordering Physician: GAMALIELQUINTON Instructor Tap Dancing: Rancho Chamberlain RDCS Attending Provider: GAMALIELQUINTON Exam Type: CA echo dop color flow w con Study Info Indications Z95.2 - Presence of prosthetic heart valve Complete two-dimensional, color flow and Doppler transthoracic echocardiogram is performed. Summary 1. Complete two-dimensional, color flow and Doppler transthoracic echocardiogram is performed. 2. Left ventricular chamber dimension is normal. 3. Left ventricular systolic function is normal, estimated at 55-60%. 4. The left ventricular diastolic function is abnormal. 5. E/e' 12 is mildly elevated. 6. Atrial fibrillation. 7. Right ventricular chamber dimension is mildly enlarged. 8. Right ventricular systolic function is moderately reduced and with abnormal TAPSE 1.3 cm. 9. Left atrial chamber dimension is moderately enlarged. 10. Right atrial chamber dimension is mildly enlarged. 11. There is mild regurgitation of the bioprosthetic aortic valve. 12. The mitral valve has moderately calcified annulus. 13. There is mild to moderate mitral valve regurgitation. 14. There is mild to moderate tricuspid valve regurgitation. 15. Mild pulmonary hypertension, estimated pulmonary arterial systolic pressure is 40 mmHg. Left Ventricle E/e' 12 is mildly elevated. Atrial fibrillation. Left ventricular chamber dimension is normal. Left ventricular systolic function is normal, estimated at 55-60%. The left ventricular diastolic function is abnormal. Right Ventricle Right ventricular systolic function is moderately reduced and with abnormal TAPSE 1.3 cm. Right ventricular chamber dimension is mildly enlarged. Left Atria Left atrial chamber dimension is moderately enlarged. Right Atria Right atrial chamber dimension is mildly enlarged. Aortic Valve The bioprosthetic aortic valve is not well visualized. There is no bioprosthetic aortic valve stenosis. There is mild regurgitation of the bioprosthetic aortic valve. Pulmonic Valve There is no pulmonic regurgitation. Mitral Valve The mitral valve has moderately calcified annulus. There is no mitral valve stenosis. There is mild to moderate mitral valve regurgitation. Tricuspid Valve There is mild to moderate tricuspid valve regurgitation. Mild pulmonary hypertension, estimated pulmonary arterial systolic pressure is 40 mmHg. Pericardium/Pleural There is no pericardial effusion. Inferior Vena Cava Normal inferior vena cava with >50% collapse upon inspiration consistent with normal right atrial pressure, 5 mmHg. Aorta The aortic root size at the sinus of Valsalva is normal. Left Ventricular Outflow Tract Name Value Normal LVOT 2D LVOT Diameter 1.97 cm LVOT Doppler LVOT Peak Gradient 5 mmHg LVOT Mean Gradient 3 mmHg LVOT VTI 21.93 cm LVOT VTI/AV VTI Ratio 0.55 LVOT Stroke Volume 66.49 ml LVOT CO 4.52 l/min LVOT CI 1.76 L/min/m2 Pulmonic Valve Name Value Normal PV Doppler PV Peak Gradient 1 mmHg PV Regurgitation Doppler MD Peak End Diastolic Velocity 94.70 cm/s Mitral Valve Name Value Normal MV Doppler MV Decel Zavala 795.53 cm/s2 MV PHT 0 s MV Area (PHT) 5.70 cm2 4.00-5.00 MV Diastolic Function MV E Peak Velocity 105.80 cm/s MV A Peak Velocity 27.53 cm/s MV E/A 3.84 MV Decel Time 0 s Tricuspid Valve Name Value Normal TV Regurgitation Doppler TR Peak Velocity 296.90 cm/s TR Peak Gradient 34 mmHg Estimated PAP/RSVP RA Pressure 5 mmHg <=5 PA Systolic Pressure 40 mmHg <36 RV Systolic Pressure 40 mmHg <36 Aorta Name Value Normal Ascending Aorta Ao Root Diameter (MM) 2.13 cm Ao Root Diam Index (MM) 0.83 cm/m2 Aortic Valve Name Value Normal AV Doppler AV Peak Velocity 230.23 cm/s AV Peak Gradient 18 mmHg AV Mean Gradient 9 mmHg AV VTI 39.83 cm AV Area (Cont Eq VTI) 1.67 cm2 >=3.00 AV Area (Cont Eq Medardo) 1.63 cm2 AV Regurgitation 2D LVOT Area 3.03 cm2 AV Regurgitation Doppler AR Decel Time 2 s AR Decel Zavala 143.11 cm/s2 AR PHT 1 s Ventricles Name Value Normal LV Dimensions 2D/MM IVS Diastolic Thickness (2D) 1.09 cm 0.60-1.00 IVS Diastole Thickness (MM) 1.05 cm 0.60-1.00 LVID Diastole (2D) 5.22 cm 4.20-5.80 LVID Diastole (MM) 6.45 cm 4.20-5.80 LVIW Diastolic Thickness (2D) 1.15 cm 0.60-1.00 LVIW Diastolic Thickness (MM) 0.97 cm 0.60-1.00 LVID Systole (2D) 4.08 cm 2.50-4.00 LVID Systole (MM) 3.86 cm 2.50-4.00 LVOT Diameter 1.97 cm LV Mass (2D Cubed) 227.57 g 88.00-224.00 LV Mass Index (2D Cubed) 0.01 g/cm2 0.00-0.01 Relative Wall Thickness (2D) 0.44 LV Mass (MM Cubed) 282.58 g 88.00-224.00 LV Mass Index (MM Cubed) 0.01 g/cm2 0.00-0.01 Relative Wall Thickness (MM) 0.30 LV Fractional Shortening/Ejection Fraction 2D/MM LV Fractional Shortening (2D) 22 % 25-43 LV Fractional Shortening (MM) 40 % 25-43 LV EF (MM Teicholz) 70 % 52-72 LV EF (2D Teicholz) 44 % 52-72 LV Diastolic Volume (4C MOD) 98.50 ml LV EF (4C MOD) 58 % LV Diastolic Volume (2C MOD) 67.71 ml LV EF (2C MOD) 58 % LV Diastolic Volume (BP MOD) 83.69 ml 62.00-150.00 LV Diastolic Volume Index (BP MOD) 0.03 l/m2 0.03-0.07 LV Systolic Volume (BP MOD) 34.80 ml 21.00-61.00 LV Systolic Volume Index (BP MOD) 0.01 l/m2 0.01-0.03 LV EF (BP MOD) 58 % 52-72 LV Diastolic Length (4C) 8.67 cm LV Systolic Length (4C) 6.79 cm LV Stroke Volume (4C MOD) 57.36 ml Atria Name Value Normal LA Dimensions LA Dimension (MM) 6.38 cm 3.00-4.10 LA Volume (4C A-L) 84.35 ml LA Volume (BP A-L) 96.54 ml RA Dimensions RA Area (4C) 24.50 cm2 <=18.00 Report Signatures
--- NOTE | 2024-05-03 16:13 | IVDEFINITY ---
Prior to administration of IV Definity the patient was educated on the risks and benefits of the imaging enhancing agent including potential adverse side effects. The patient verbalized understanding. Allergies were verified. No exclusion criteria were identified and at least one of the following inclusion criteria were met: 1) physician request, 2) patient technically difficult to image (per the [place] [employer] guidelines of two or more segments not discernable within the apical view), or 3) questionable left ventricular function. ?
== END 2024-05-03 14:31 | disposition home or self-care (01) ==
LOC: ANHCARD 14:31
PROVIDERS: PCP Family Medicine
DX: Z95.2 Presence of prosthetic heart valve (principal)
CPT/HCPCS: 93306; C8929